=== PATIENT | male | born 1960 | race Caucasian/White ===

== ENCOUNTER 2017-05-21 10:21 | Outpatient (RCR) | payer MEDICARE, MEDICAID, SELFPAY ==
[2017-05-21 11:43] VITALS: BP 147/85; PULSE 72; RESP 18; TEMP 36.6; BMI 20.5
--- NOTE | 2017-05-21 12:46 | HP.PCM_ITS ---
(1) Ulcer of foot Status: Chronic Current Visit: Yes Qualifiers: Laterality: right Non-pressure ulcer stage: with fat layer exposed Qualified Code(s): L97.512 - Non-pressure chronic ulcer of other part of right foot with fat layer exposed Code(s): L97.509 - Non-pressure chronic ulcer of other part of unspecified foot with unspecified severity (2) Supplemental oxygen dependent Status: Chronic Current Visit: No Code(s): Z99.81 - Dependence on supplemental oxygen (3) CHF (congestive heart failure) Status: Chronic Current Visit: No Code(s): I50.9 - Heart failure, unspecified (4) Coronary artery arteriosclerosis Status: Chronic Current Visit: No Code(s): I25.10 - Atherosclerotic heart disease of [place] coronary artery without angina pectoris (5) Parathyroid disease Status: Chronic Current Visit: Yes Code(s): E21.5 - Disorder of parathyroid gland, unspecified (6) COPD (chronic obstructive pulmonary disease) Status: Chronic Current Visit: No Code(s): J44.9 - Chronic obstructive pulmonary disease, unspecified (7) ESRD (end stage renal disease) Status: Chronic Current Visit: No Code(s): N18.6 - End stage renal disease (8) HTN (hypertension) Status: Chronic Current Visit: No Qualifiers: Hypertension type: essential hypertension Qualified Code(s): I10 - Essential (primary) hypertension Code(s): I10 - Essential (primary) hypertension (9) Afib Status: Chronic Current Visit: No Qualifiers: Code(s): I48.91 - Unspecified atrial fibrillation Comment: paroxysmal on Eliquis (10) Pulmonary HTN Status: Chronic Current Visit: No Code(s): I27.2 - Other secondary pulmonary hypertension (11) Anemia with chronic illness Status: Chronic Current Visit: No Code(s): D63.8 - Anemia in other chronic diseases classified elsewhere (12) Hypoxia Status: Acute Current Visit: No Code(s): R09.02 - Hypoxemia (13) S/p nephrectomy Status: Chronic Current Visit: No Code(s): Z90.5 - Acquired absence of kidney (14) Cardiomyopathy Status: Chronic Current Visit: No Qualifiers: Code(s): I42.9 - Cardiomyopathy, unspecified (15) Dependent on hemodialysis Status: Chronic Current Visit: No Code(s): Z99.2 - Dependence on renal dialysis (16) History of nephrectomy Status: Chronic Current Visit: No Code(s): Z98.890 - Other specified postprocedural states; Z90.5 - Acquired absence of kidney (17) History of kidney cancer Status: Chronic Current Visit: No Code(s): Z85.528 - Personal history of other malignant neoplasm of kidney History of Present Illness Date of Service: 05/21/17 Chief Complaint: Chronic, nonhealing ulcerations of the right foot with lower extremity swelling and edema History of Wound: This is a 57-year-old male who presents with a four-month history of ulcerations on his right foot. Patient is uncertain as to the etiology of his wounds, but states she has had associated cellulitis, for which she has been previously treated. The location and appearance of his ulcerations are suggestive of pressure phenomenon, likely due to swelling occurring while wearing an unyielding shoe. The patient has multiple medical problems, which are recommended above. These include, but are not limited to, history of congestive heart failure, coronary artery disease, hypertension, chronic obstructive pulmonary disease, shortness of breath with supplimental O2 dependence, prior nephrectomy, end-stage renal failure, parathyroid disease, atrial fibrillation, pulmonary hypertension, anemia of chronic disease, etc. Past Medical History Past Medical History: Chronic Problems ESRD (end stage renal disease) (Chronic) HTN (hypertension) (Chronic) Afib (Chronic) paroxysmal on Eliquis PAF (paroxysmal atrial fibrillation) (Chronic) Pulmonary HTN (Chronic) Anemia with chronic illness (Chronic) Non-compliance (Chronic) non-compliant with meds and with dialysis Non-compliance with renal dialysis (Chronic) Hyperglycemia (Chronic) Bilateral pleural effusion (Chronic) S/p nephrectomy (Chronic) High-grade atrioventricular block (Chronic) Cardiomyopathy (Chronic) Dependent on hemodialysis (Chronic) Ulcer of foot (Chronic) Supplemental oxygen dependent (Chronic) CHF (congestive heart failure) (Chronic) Coronary artery arteriosclerosis (Chronic) Parathyroid disease (Chronic) COPD (chronic obstructive pulmonary disease) (Chronic) History of nephrectomy (Chronic) History of kidney cancer (Chronic) Past Medical History: Patient's multiple medical problems are as documented above. Additionally, the patient has a history of kidney cancer for which he underwent left nephrectomy approximately 1 year ago at [facility] in [place], [place]. Patient's history is negative for myocardial infarction, diabetes mellitus, hyperlipidemia, thyroid disease, and cerebrovascular accident. The patient indicates that he has a 30% ejection fraction. Surgical History: - - AVF placement PAIGE, left nephrectomy for cancer, cardiac defibrillator placement in 2015. Right inguinal hernia repair in the remote past. Allergies/Adverse Reactions: Allergies No Known Allergies Allergy (Verified 05/04/17 15:58) Home Medications: Ambulatory Orders Medication Instructions Recorded Acetaminophen [Tylenol] 1,000 mg PO Q4H PRN PRN 05/17/15 Calcium Acetate [Phoslo Gel Cap] 1 capsule PO TIDCM 05/17/15 Lisinopril [Zestril] 20 mg PO DAILY 05/17/15 Cinacalcet HCl [Sensipar] 30 mg PO DAILY 09/08/15 Metoprolol Succinate [Toprol Xl] 100 mg PO DAILY #1 tab.er.24h 06/19/16 Folic Acid/Vit Bcomp,C [Renal-Miguel Angel 0.8 mg PO DAILY 02/05/17 Tablet] Loperamide HCl [Anti-Diarrheal] 2 mg PO Q6H PRN PRN 02/05/17 Omeprazole 20 mg PO BID 02/05/17 Hydrocodone Bitart/Apap 5-325 1 - 2 tablet PO Q4H PRN PRN #12 03/03/17 [[place] 5/325] tablet Ondansetron [Zofran Odt] 4 mg PO Q8H PRN PRN #10 tablet 03/03/17 Albuterol IH (ProAir) [Proair Hfa] 1 puff INHALATION Q4H PRN PRN #1 04/20/17 inhaler Hydroxyzine HCl 50 mg PO BID 04/21/17 - Family History Maternal No pertinent history, - - Patient's mother at age of 73 with a history of end-stage renal failure. Paternal Renal Disease, - - The patient's mother at age of 69 with a history of kidney cancer. Social History: Denies use of alcohol and tobacco products. He is disabled and unemployed. He is . Lives: Spouse/ Significant Other Smoking Status: Never smoker Tobacco Use: Non-smoker Alcohol: None Drugs: None Review of Systems Constitutional: Denies: Chills, Fever, Weight Change Eyes: Denies: Pain, Vision Change HEENT: Denies: Difficulty Hearing, Difficulty Swallowing, Sinus Congestion Cardiovascular: Denies: Chest Pain, Palpitations Respiratory: Denies: Cough, Shortness of Breath Gastrointestinal: Denies: Diarrhea, Nausea, Vomiting Genitourinary: Denies: Dysuria, Hematuria Endocrine: Denies: Heat/ Cold Intolerance, Polydipsia, Polyuria Hematologic/ Lymphatic: Denies: Easy Bruising, Easy Bleeding - Physical Exam Vital Signs Temp Pulse Resp BP 98 F 72 18 147/85 H 05/21/17 11:43 05/21/17 11:43 05/21/17 11:43 05/21/17 11:43 General: Alert, Oriented x3, Cooperative, No apparent distress, Well developed, - - The patient appears chronically ill. HEENT: Atraumatic, PERRLA, EOMI, Normocephalic Oral: Moist Mucosa Neck: No JVD, Negative Carotid Bruits, Negative Hepatojugular Reflux, No Nodes, No Nuchal Rigidity, Trachea Midline Lungs: Clear to auscultation, Normal air movement, No rhonchi, No wheeze, No rales Cardiovascular: Normal S1, Normal S2, No murmurs Abdomen: Soft, Non Tender, Non-Distended Extremities: No clubbing, No cyanosis, No Calf Tenderness, - - Mild bilateral lower extremity edema is noted, more severe in the right lower extremity. There are multiple wounds on the right foot, documented elsewhere. The fissure is noted on the right lateral heel. Very superficial ulcerations noted on the right medial foot. A cluster of ulcerations is noted on the dorsum of the right foot, with one particular circular ulceration which is covered by a dry eschar. Circumference measurements are documented elsewhere. Ulcer dimensions are documented elsewhere. Multiple superficial excoriations are noted on the left forearm. The patient's hemodialysis access site is observed on the left upper arm. An transit defibrillator is noted in the right clavicular area Wound Measurements and Assessment WC - Nurse 1 - General Ulcer Measurement Start: 05/21/17 11:38 Freq: Status: Active Protocol: Activity Type Activity Date Activity User E-Sign Co-Sign Detail Recorded Client Recorded Date Recorded By Document 05/21/17 11:43 [facility] [id number] 05/21/17 11:59 BM 05/21/17 11:43 Wound Center Nurse 1 [Ulcer Assessment Protocol: WC.WD.LOC] #4- LFA CLUSTER -Combined with other wound No -Current Size (cm) - Length 10 -Current Size (cm) - Width 10.5 -Current Size (cm) - Depth 0.1 -Total Square Cm 105.0 -Date of Last Picture (Recall this 05/21/17 field) -Photo Taken Yes -Epithelialization None Present -Tunneling No -Undermining/Tunneling No -Exudate Amt None Present (0 %) -Wound Margin Distinct, Outline Attached -Granulation Amt None Present (0 %) -Slough/Fibrin Yes -Necrosis Amt Large (67-100%) -Necrotic Tissue Type Adherent Slough -Structure Exposed N/A -Texture (Yasmeen-wound Skin Appearance) Scarring -Moisture (Yasmeen-wound Skin Appearance Dry/Scaly ) -Color (Yasmeen-wound Skin Appearance) Erythema -Temperature (Yasmeen-wound Skin No Abnormality Appearance) (Pt Warm) -Tenderness on Palpation (Yasmeen-wound No Skin Appearance) -Ulcer Cleansing Rinsed/ Irrigated with Saline -Foul Odor after Cleansing No -Anesthetic Used 4% Lidocaine Solution #3- RT LATERAL FOOT -Combined with other wound No -Current Size (cm) - Length 2.6 -Current Size (cm) - Width 1.3 -Current Size (cm) - Depth 0.1 -Total Square Cm 3.38 -Date of Last Picture (Recall this 05/21/17 field) -Photo Taken Yes -Epithelialization None Present -Tunneling No -Undermining/Tunneling No -Exudate Amt None Present (0 %) -Wound Margin Distinct, Outline Attached -Granulation Amt None Present (0 %) -Slough/Fibrin Yes -Necrosis Amt Large (67-100%) -Necrotic Tissue Type Adherent Slough -Structure Exposed N/A -Texture (Yasmeen-wound Skin Appearance) Scarring -Moisture (Yasmeen-wound Skin Appearance Dry/Scaly ) -Color (Yasmeen-wound Skin Appearance) Erythema -Temperature (Yasmeen-wound Skin No Abnormality Appearance) (Pt Warm) -Tenderness on Palpation (Yasmeen-wound No Skin Appearance) -Ulcer Cleansing Rinsed/ Irrigated with Saline -Foul Odor after Cleansing No -Anesthetic Used 4% Lidocaine Solution #2- RT MEDIAL FOOT -Combined with other wound No -Current Size (cm) - Length 2.0 -Current Size (cm) - Width 1.4 -Current Size (cm) - Depth 0.1 -Total Square Cm 2.80 -Date of Last Picture (Recall this 05/21/17 field) -Photo Taken Yes -Epithelialization None Present -Tunneling No -Undermining/Tunneling No -Exudate Amt None Present (0 %) -Wound Margin Distinct, Outline Attached -Granulation Amt None Present (0 %) -Slough/Fibrin Yes -Necrosis Amt Large (67-100%) -Necrotic Tissue Type Adherent Slough -Structure Exposed N/A -Texture (Yasmeen-wound Skin Appearance) Scarring -Moisture (Yasmeen-wound Skin Appearance Dry/Scaly ) -Color (Yasmeen-wound Skin Appearance) Erythema -Temperature (Yasmeen-wound Skin No Abnormality Appearance) (Pt Warm) -Tenderness on Palpation (Yasmeen-wound No Skin Appearance) -Ulcer Cleansing Rinsed/ Irrigated with Saline -Foul Odor after Cleansing No -Anesthetic Used 4% Lidocaine Solution #1- RT ANTERIOR FOOT CLUSTER -Combined with other wound No -Current Size (cm) - Length 3.2 -Current Size (cm) - Width 3.3 -Current Size (cm) - Depth 0.1 -Total Square Cm 10.56 -Date of Last Picture (Recall this 05/21/17 field) -Photo Taken Yes -Epithelialization None Present -Tunneling No -Undermining/Tunneling No -Exudate Amt None Present (0 %) -Wound Margin Distinct, Outline Attached -Granulation Amt None Present (0 %) -Slough/Fibrin Yes -Necrosis Amt Large (67-100%) -Necrotic Tissue Type Adherent Slough -Structure Exposed N/A -Texture (Yasmeen-wound Skin Appearance) Scarring -Moisture (Yasmeen-wound Skin Appearance Dry/Scaly ) -Color (Yasmeen-wound Skin Appearance) Erythema -Temperature (Yasmeen-wound Skin No Abnormality Appearance) (Pt Warm) -Tenderness on Palpation (Yasmeen-wound No Skin Appearance) -Ulcer Cleansing Rinsed/ Irrigated with Saline -Foul Odor after Cleansing No -Anesthetic Used 4% Lidocaine Solution [Edema Assessment] -Lower Limb Edema Present Yes -Right Calf (cm) 32.4 -Right Ankle (cm) 26.0 -Left Calf (cm) 30.0 -Left Ankle (cm) 22.5 Musculoskeletal: Muscle Wasting - Diffuse Neurological: Cranial nerves II-XII grossly intact, Neuro grossly intact Psych/Mental Status: Normal Affect, Appropriate, Alert and oriented to time, place, person, mood and affect Debridement Note Laterality: Right - Foot Type of Debridement: Selective debridement Anesthesia Used: 4% Lidocaine Solution Depth: Down to and including healthy tissue Percentage of wound debrided: 100 Instrument Used: 5mm curette, #11 blade Severity: Limited To Skin Breakdown Amount of bleeding with debridement: Mild Bleeding Controlled with: Compression and gauze Patient tolerated procedure well Assessment/Plan Active Problems Ulcer of foot (Chronic) Parathyroid disease (Chronic) Assessment: This is a 57-year-old male with multiple medical problems, which have been documented herein. He presents with wounds on his right foot, highly suspicious for pressure phenomenon likely due to swelling in the right foot while wearing unyielding footwear. Patient has undergone a battery of laboratory tests results as follows: White blood count 16.5, hemoglobin 10.5, hematocrit 32.7, platelets 230,000, sodium 134, potassium 7.0, BUN 86, creatinine 8.8, glucose 105, calcium 8.3, magnesium 2.8, AST 11, ALT 30, alkaline phosphatase 92, total protein 5.9, albumin 2.1. Plan: Patient has been encouraged to optimize his nutritional intake. He is to collaborate with his mechanical engineering technologist in this regard to determine how best to achieve this objective. It is noted that he is relatively immobile and inactive , often spending long hours each day and idle sitting position. Furthermore, he sleeps in a recliner. He has been advised to elevate his lower extremities as much as possible. Elevation is to be to heart level or higher. He is to avoid idle sitting and standing. Activity has been encouraged. Ultimately, compression to the lower extremities may be considered. First, however, we are to obtain a noninvasive lower extremity arterial study, to determine the status of the arterial system in the lower extremities. We are to implement the use of collagenase Santyl topically on the largest of his ulcerations on the dorsum of the right foot, after having been scored with selective debridement today using a #11 scalpel. Collagen hydrogel will be used topically on the other ulcerations of the right foot. The patient has multiple excoriations on the left upper extremity, the result of scratching and picking. This practice has been discouraged. We are to observe these excoriation serially, as at this time they do not appear to warrant any specific intervention. It is acknowledged that the patient may have difficulty in elevating his legs, as he states I cannot lie flat because of my heart. Patient is to follow-up in 1 week for reassessment. Influenza vaccine was not administered today. The patient is not a smoker. He stands 5 feet 8 inches in height, and weighs 135 pounds. His BMI is 20.5, which is normal.
== END 2017-05-26 23:59 ==
LOC: WC 10:21
PROVIDERS: Family Provider Family Medicine; PCP Family Medicine; Visit Provider Surgery
DX: L97.512 Non-pressure chronic ulcer of other part of right foot with fat layer exposed (principal); Z99.81 Dependence on supplemental oxygen; I13.2 Hypertensive heart and chronic kidney disease with heart failure and with stage 5 chronic kidney disease, or end stage renal disease; N18.6 End stage renal disease; I50.9 Heart failure, unspecified; I25.10 Atherosclerotic heart disease of native coronary artery without angina pectoris; E21.5 Disorder of parathyroid gland, unspecified; J44.9 Chronic obstructive pulmonary disease, unspecified; I48.0 Paroxysmal atrial fibrillation; Z79.01 Long term (current) use of anticoagulants; Z85.528 Personal history of other malignant neoplasm of kidney; Z98.890 Other specified postprocedural states; M79.89 Other specified soft tissue disorders; R60.0 Localized edema; D63.8 Anemia in other chronic diseases classified elsewhere; Z91.15 Patient's noncompliance with renal dialysis; Z91.14 Patient's other noncompliance with medication regimen; Z95.810 Presence of automatic (implantable) cardiac defibrillator; Z79.899 Other long term (current) drug therapy
CPT/HCPCS: 97597; 99205; G0463

== ENCOUNTER 2017-05-22 15:13 | Inpatient (IN) | payer MEDICARE, MEDICAID, SELFPAY ==
[2017-05-22] VITALS (12 sets, daily range): BP systolic 101–144; BP diastolic 72–119; PULSE 70–135; RESP 16–24; TEMP 36.4–36.8; O2SAT 91–98; BMI 19.1; BMI 20.8
--- NOTE | 2017-05-22 15:34 | RAD_ITS ---
STUDY: X-RAY CHEST REASON FOR EXAM: Male, 57 years old. Chest pain TECHNIQUE: Single AP portable view of the chest. COMPARISON: April 21, 2017. FINDINGS: Pacemaker device on the right is stable. Bilateral mid and lower lung opacities and consolidation. Moderate bilateral pleural effusions. There is moderate cardiac enlargement. Normal mediastinum and butch. Normal visualized pulmonary arteries. Normal visualized aortic arch and descending thoracic aorta. Normal visualized thoracic spine. Normal visualized ribs, clavicles, and shoulders. There is no demonstrated abnormality of the visualized soft tissue structures of the upper abdomen. RAD/Chest 1 View (Portable) IMPRESSION: Moderate bilateral pleural effusions with mid and lower lung consolidation. Electronically Signed: Julio Renee MD at 16:49 EST , Service support ,
--- NOTE | 2017-05-22 15:34 | EKG12_ITS ---
Test Reason : CP Blood Pressure : / mmHG Vent. Rate : 126 BPM Atrial Rate : 141 BPM P-R Int : 000 ms QRS Dur : 090 ms QT Int : 348 ms P-R-T Axes : 000 033 161 degrees QTc Int : [address] & T wave abnormality, consider lateral ischemia Abnormal ECG Confirmed by OLIVER CAMPOS, JAMIR ([id number]), editor at large KULDIP MASON ([id number]) on 05/28/2017 3:39:31 PM Referred By: Confirmed By:JAMIR BOYD MD
--- NOTE | 2017-05-22 15:45 | NURSING ---
Addendum entered by Sheree Mccabe 05/22/17 18:04: CORRECTION: DIALYSIS NEEDLES REMOVED FROM LEFT ARM, NOT RIGHT ARM. Original Note: Addendum entered by Sheree Mccabe 05/22/17 18:03: GOOD PULSES FELT ABOVE AND BELOW SITES WHILE PRESSURE BEING HELD. Original Note: DIALYSIS NEEDLES REMOVED FROM RIGHT ARM--PROXIMAL, THEN DISTAL PER POLICY. PRESSURE HELD X 15 MIN. NO FURTHER BLEEDING NOTED. SITES COVERED W/STERILE GAUZE AND SECURED W/TAPE.
[2017-05-22 16:25] LABS: Absolute Lymphocyte Count 0.79 X10^3/ul (0.83-4.51); Absolute Neutrophil Count 6.2 X10^3/uL (2.0-7.7); Basophil# 0.11 X10^3/uL; Basophil% 1.3 % (0-1); Eosinophil# 0.65 X10^3/uL; Eosinophils% 7.8 % (0-5); Hematocrit 34.5 % (40-54); Hemoglobin 10.6 g/dl (13.0-16.5); Lymphocyte # 0.79 X10^3/ul (4.0); Lymphocyte % 9.5 % (19-41); Mean Corp Hgb Conc 30.7 g/gl (32-36); Mean Corpuscular Hgb 27.9 pg (27.0-32.0); Mean Corpuscular Volume 90.8 fL (80-94); Mean Platelet Vol. 10.4 fl (6.2-12.0); Monocyte# 0.61 X10^3/uL; Monocyte% 7.3 % (0-10); Neutrophil # 6.15 X10^3/uL (2.7-7.7); Neutrophil % 73.7 % (47-70); Platelet Count 122 K/mm3 (150-450); RBC Distribution Width CV 17.8 % (11.6-14.6); RBC Distribution Width SD 58.8 fl (35.1-43.9); White Blood Count 8.3 K/mm3 (4.4-11.0)
[2017-05-22 16:30] LABS: POSITIVE COUNT NO; POSITIVE DIFFERENTIAL NO; POSITIVE MORPHOLOGY NO
[2017-05-22] MEDS: Metoprolol Tartrate 5 MG/5 ML Vial IV ×3 (16:36→16:44)
[2017-05-22 16:49] LABS: ALB/GLOB Ratio 0.7 RATIO (0.9-2.4); AST(SGOT) 39 U/L (15-37); Alanine Aminotransfer ALT/SGPT 47 U/L (12-78); Albumin, Serum 3.2 g/dL (3.4-5.0); Alkaline Phosphatase 201 U/L (45-117); Anion Gap 13 (5-15); BUN 31 mg/dL (7-18); BUN/Creat Ratio 5.7 RATIO (10-20); Calcium,Total 8.2 mg/dL (8.5-10.1); Chloride 98 mmol/L (98-107); Creatinine, Serum 5.43 mg/dL (0.70-1.30); EST Glomerular Filtration Rate 12 mL/min (>60); Est Glom Filt Rate - Afr Amer 14 mL/min (>60); Estimated Creatinine Clearance 11.97 ml/min; Globulin 4.4 g/dL (2.2-4.2); Glucose 71 mg/dL (70-110); Lipase 319 U/L (73-393); Potassium 3.9 mmol/L (3.5-5.1); Protein, Total 7.6 g/dL (6.4-8.2); Sodium Level 137 mmol/L (136-145)
[2017-05-22] MEDS: oxyCODONE 5 MG Tablet PO (16:50)
[2017-05-22] MEDS: Acetaminophen 325 MG Tablet PO (16:51)
[2017-05-22 16:56] LABS: International Normalized Ratio 1.2; Prothrombin Time (Protime)PT. 14.4 SECONDS (11.7-14.9)
[2017-05-22 16:57] LABS: Partial Thromboplast Time 33.4 Seconds (24.1-36.2)
[2017-05-22] MEDS: dilTIAZem 25 MG/5 ML Vial 20 MG IV BOLUS (17:31)
--- NOTE | 2017-05-22 17:44 | ED.RN ---
PER DR RONALD SCHMIDT FOR PT TO EAT. PT GIVEN HAM SALAD AND ROAST BEEF SANDWICH PER PT CHOICE
[2017-05-22] MEDS: Enoxaparin 100 MG/ML Syringe 60 MG SC (19:08)
[2017-05-22] MEDS: Ipratropium/Albuterol Sulfate 3 ML AMPUL.NEB INHALATION (19:13)
--- NOTE | 2017-05-22 20:07 | ED.RN ---
ELIN FONSECA W/ CORI EDMONDSON
[2017-05-22 20:18] LABS: Lactic Acid 2.2 mmol/L (0.4-2.0)
--- NOTE | 2017-05-22 20:19 | ED.RN ---
lab called with critical lab results. lactic acid 2.2. Dr. Allan made aware
--- NOTE | 2017-05-22 20:31 | ED.RN ---
RM 122
--- NOTE | 2017-05-22 20:42 | HP.PCM_ITS ---
Problem List (1) Chest pain Status: Acute Qualifiers: Chest pain type: precordial pain Qualified Code(s): R07.2 - Precordial pain History of Present Illness Date of Admission: 05/22/17 Chief Complaint: Left chest pain The patient is a 57 year old M, h/o parorysmal a-fib, CKD on HD MWF, COPD, chronic respiratory failure on supplemental o2 at 3 L/min, presents with c/o sudden worsening of chest pain that began while he was doing hemodialysis today. Described chest pain as localizing left anterior chest, continuous, severe 10 out of 10, nonradiating, transiently resolved following the administration of Nitropaste. Patient equally reports 2 days of cough productive of sputum of unknown characteristics. Reports associated vomiting following coughing. No fever, chills, sick contacts. ED eval remarkable for blood pressure 117/94, heart rate 132/min, respiration 22 /min. Hemoglobin 10.6, platelets 122, BUN 31, creatinine 5.43, troponin 0 0.14 , albumin 3.2. Chest x-ray remarkable for bilateral mid and lower lung opacities and consolidation, moderate bilateral pleural effusion, right chest pacemaker. Given IV Cardizem, IV cefepime, IV Zithromax and vancomycin, therapeutic dose Lovenox. Past Medical History Past Medical History (Chronic Problems): Chronic Problems ESRD (end stage renal disease) (Chronic) HTN (hypertension) (Chronic) Afib (Chronic) paroxysmal on Eliquis PAF (paroxysmal atrial fibrillation) (Chronic) Pulmonary HTN (Chronic) Anemia with chronic illness (Chronic) Non-compliance (Chronic) non-compliant with meds and with dialysis Non-compliance with renal dialysis (Chronic) Hyperglycemia (Chronic) Bilateral pleural effusion (Chronic) S/p nephrectomy (Chronic) High-grade atrioventricular block (Chronic) Cardiomyopathy (Chronic) Dependent on hemodialysis (Chronic) Ulcer of foot (Chronic) Supplemental oxygen dependent (Chronic) CHF (congestive heart failure) (Chronic) Coronary artery arteriosclerosis (Chronic) Parathyroid disease (Chronic) COPD (chronic obstructive pulmonary disease) (Chronic) History of nephrectomy (Chronic) History of kidney cancer (Chronic) Allergies No Known Allergies Allergy (Verified 05/22/17 15:13) Home Medications: Ambulatory Orders Medication Instructions Recorded Acetaminophen [Tylenol] 1,000 mg PO Q4H PRN PRN 05/17/15 Calcium Acetate [Phoslo Gel Cap] 2 capsule PO TIDCM 05/17/15 Lisinopril [Zestril] 20 mg PO DAILY 05/17/15 Cinacalcet HCl [Sensipar] 30 mg PO DAILY 09/08/15 Metoprolol Succinate [Toprol Xl] 100 mg PO DAILY #1 tab.er.24h 06/19/16 Omeprazole 20 mg PO BID 02/05/17 Albuterol Sulfate [Ventolin Hfa] 1 puff INHALATION Q4H PRN PRN 05/22/17 Fluocinonide [Fluocinonide] 1 applicatio TOPICAL BID 05/22/17 Folic Acid/Vit Bcomp,C [Renal-Miguel Angel 0.8 mg PO DAILY 05/22/17 Tablet] Hydroxyzine Pamoate 50 mg PO BID 05/22/17 Oxycodone HCl/Acetaminophen 1 tablet PO Q6H PRN PRN 05/22/17 [Percocet 5/325] Surgical History: - - AVF placement PAIGE, left nephrectomy for cancer, cardiac defibrillator placement in 2015. Right inguinal hernia repair in the remote past. Smoking Status: Former smoker - *Family History Maternal History Items: No pertinent history, - - Patient's mother at age of 73 with a history of end-stage renal failure. Paternal History Items: Renal Disease, - - The patient's mother at age of 69 with a history of kidney cancer. Review of Systems Constitutional: Denies: Chills, Fever, Weight Change HEENT: Reports: Post Nasal Drip. Denies: Difficulty Hearing, Difficulty Swallowing, Dysphasia, Ear Pain, Eye Pain, Hard of Hearing, Head Aches, Hearing Changes, Nasal bleeding, Nasal Congestion, Sore Throat, Visual Changes Cardiovascular: Reports: Chest Pain, Palpitations. Denies: Claudication, Chest Pressure, Chest Tightness, Edema, Heaviness, Light Headedness, Orthopnea, Paroxysmal Noc. Dyspnea, Syncope Respiratory: Reports: Cough, Shortness of Breath, Sputum production, Wheezing. Denies: Hemoptysis, Pleuritic Pain Gastrointestinal: Reports: Vomiting. Denies: Abdominal Pain, Constipation, Dyspepsia, Hematemesis, Hematochezia, Nausea, Melena Genitourinary: Denies: Dysuria Musculoskeletal: Reports: Foot Pain Skin: Reports: Wounds Neurological: Denies: Numbness, Tingling, Focal weakness Psychiatric: Denies: Anxiety, Depression, Homicidal Ideations, Suicidal Ideations Endocrine: Denies: Change in Body Habitus Hematologic/ Lymphatic: Reports: Easy Bruising VTE Information - Inpt Only VTE Present on Admission: No VTE Mechan Device Prophylaxis: SCD's VTE Pharm Prophylaxis ordered?: Yes VTE Suspected: Suspected DVT Patient Problems: Active and Suspected Problems Chest pain (Acute) - Physical Exam General: Oriented x3, Cooperative HEENT: Atraumatic, PERRLA, Normocephalic Oral: Dry Mucosa Neck: Supple, No JVD, Negative Carotid Bruits Lungs: Diminished, Wheezes Cardiovascular: Irregular Rate Abdomen: Bowel Sounds Present, Soft, Non Tender Extremities: Edema - Right legswollen, erythemathous, with shallow ulcer on doersum of right foot Vital Signs Temp Pulse Resp BP Pulse Ox 98.3 F 80 19 H 119/84 H 98 05/22/17 15:14 05/22/17 20:12 05/22/17 20:12 05/22/17 20:12 05/22/17 20:12 Oxygen Flow Rate 3 Oxygen Delivery Method Nasal Cannula Weight: 57.08 kg Body Mass Index (BMI) 19.1 Laboratory Tests Past 24 Hrs 05/22/17 05/22/17 05/22/17 16:00 16:00 16:35 WBC 8.3 RBC 3.80 L Hgb 10.6 L Hct 34.5 L MCV 90.8 MCH 27.9 MCHC 30.7 L RDW 17.8 H RDW Differential 58.8 H Plt Count 122 L MPV 10.4 Immature Gran % (Auto) 0.400 Neut % (Auto) 73.7 H Lymph % (Auto) 9.5 L Swift % (Auto) 7.3 Eos % (Auto) 7.8 H Baso % (Auto) 1.3 H Absolute Neuts (auto) 6.2 Absolute Lymphs (auto) 0.79 L Total Counted Not Reportable PT 14.4 INR 1.2 APTT 33.4 Sodium 137 Potassium 3.9 Chloride 98 Carbon Dioxide 26.0 Anion Gap 13 BUN 31 H Creatinine 5.43 H Estim Creat Clear Calc 11.97 Est GFR (MDRD) Af Amer 14 L Est GFR (MDRD) Non-Af 12 L BUN/Creatinine Ratio 5.7 L Glucose 71 Lactic Acid Calcium 8.2 L Total Bilirubin 0.70 AST 39 H ALT 47 Alkaline Phosphatase 201 H Troponin I 0.14 H Total Protein 7.6 Albumin 3.2 L Globulin 4.4 H Albumin/Globulin Ratio 0.7 L Lipase 319 05/22/17 19:35 WBC RBC Hgb Hct MCV MCH MCHC RDW RDW Differential Plt Count MPV Immature Gran % (Auto) Neut % (Auto) Lymph % (Auto) Swift % (Auto) Eos % (Auto) Baso % (Auto) Absolute Neuts (auto) Absolute Lymphs (auto) Total Counted PT INR APTT Sodium Potassium Chloride Carbon Dioxide Anion Gap BUN Creatinine Estim Creat Clear Calc Est GFR (MDRD) Af Amer Est GFR (MDRD) Non-Af BUN/Creatinine Ratio Glucose Lactic Acid 2.2 H Calcium Total Bilirubin AST ALT Alkaline Phosphatase Troponin I Total Protein Albumin Globulin Albumin/Globulin Ratio Lipase Assessment/Plan Active and Suspected Problems Chest pain (Acute) 1 Acute precordial chest pain, likely due to paroxysmal atrial fibrillation. Continue Nitropaste. Obtain serial cardiac enzymes, EKG, lipid profile, 2D echo. Patient to be admitted to telemetry unit. 2 Atrial fibrillation with rapid ventricular response. IV I Cardizem, IV heparin. Daily PT PTT INR. Of note patient claims his Coumadin was stopped because of easy bruising and bleeding. 3 Healthcare associated pneumonia. Empiric IV cefepime, IV azithromycin, IV vancomycin. Blood culture, sputum culture, Legionella antigen, strep pneumo antigen pending. 4 Right leg cellulitis with right foot ulcer. Continue empiric IV vancomycin and cefepime. Wound swab for culture and sensitivity pending. Consult wound care services. Right leg venous Doppler to evaluate for DVT. 5 End-stage renal disease on hemodialysis Saturday. Consult nephrology for hemodialysis. 6. Chronic respiratory failure. At baseline. Resume supplemental oxygen at 3 L /min. 7. Chronic troponin elevation. Likely due to end-stage renal disease. Follow serial cardiac enzymes and EKG report. 8. Chronic anemia, due to end-stage renal disease. No overt bleed. Monitor. Code Visit Inpatient E&M: 89383 Init Hosp L3
--- NOTE | 2017-05-22 21:11 | ED.RN ---
NO LW OR POA NEEDS VERIFIED
--- NOTE | 2017-05-22 21:42 | VDLE_ITS ---
Reason For Study: LEG SWELLING RIGHT LEFT GSV is normal. CFV is compressible, spontaneous, phasic, CFV is compressible, spontaneous, phasic, competent, and demonstrates normal competent and demonstrates normal augmentation. augmentation. FV is compressible, spontaneous, phasic, competent and demonstrates normal augmentation. POP V is compressible, spontaneous, phasic, competent and demonstrates normal augmentation. T/P Trunk is compressible. PTV is compressible. RT PerV is compressible. Procedure Exam performed in department. A preliminary report was called and/or faxed to [facility]. Interpretation Summary Deep veins of the right lower extremity are patent and compressible segmentally. There is no evidence of right lower extremity deep vein thrombosis. Valvular competence appears intact within the proximal deep venous system on the right . The right greater saphenous vein appears patent and compressible segmentally. Ordering Physician: Lonnie Kumar Referring Physician: Anaya Abarca Performed By: oNry Jones RVT
--- NOTE | 2017-05-22 21:53 | EKG12_ITS ---
Test Reason : CONVERTED TO NSR Blood Pressure : / mmHG Vent. Rate : 077 BPM Atrial Rate : 077 BPM P-R Int : 164 ms QRS Dur : 088 ms QT Int : 430 ms P-R-T Axes : 007 050 149 degrees QTc Int : 486 ms Sinus rhythm T wave abnormality, consider lateral ischemia Confirmed by OLIVER CAMPOS, JAMIR ([id number]), telegraph editor KULDIP MASON ([id number]) on 05/29/2017 4:19:02 PM Referred By: DR OBRIEN Confirmed By:JAMIR BOYD MD
[2017-05-22] MEDS: 0.9% Saline Lock 10 ML Syringe IV (22:09)
--- NOTE | 2017-05-22 23:04 | ED.VISSUMM ---
- ER Visit Summary Date of Service: 05/22/17 Chief Complaint: Chest pain History of Present Illness: The patient is a 57 M arriving by EMS for the evaluation of chest pain. Patient states that he was at dialysis being dialyzed when he has sudden onset of chest pain over the left breast. He points to an area about 1 fingers breath and really describe it as a pain. He states that time he also went into A. fib. He states that he frequently goes into A. fib in fact the last episode was Saturday. He states he used to be on Coumadin and is unsure exactly why they stopped Coumadin but he thinks it has something to do with the fact that he would pick his skin sores and they would bleed. Patient also notes pain in his feet which are chronic for which he takes Percocet he like 1 of those. He also states that he has a chest cold noting cough dyspnea and dyspnea on exertion. Physical Examination: 98.3 heart rate of 126 respirations are 19 pulse ox is 94% room air blood pressure 120/74 Gen: Well-nourished well-developed Head: Normocephalic atraumatic Eyes: Perrl EOMI ENT: TMs clear no rhinorrhea moist mucous membranes Neck: Supple no lymphadenopathy no JVD nontender CVS: Irregularly irregular rhythm no murmurs normal S1-S2 Respiratory: No distress patient has some expiratory wheezing and rhonchi bilaterally chest nontender Abdomen: Soft nontender nondistended normal bowel sounds no masses Back: Nontender Extremity: Nontender no edema Skin: Normal color no rash Neuro: alert orientated ?3 CN II-XII intact normal strength sensation reflexes gait cerebellar Psych: Patient seems rather disgruntled Test Results: White count 8.3. Creatinine 5.43. Lactic acid 2.2 troponin 0 0.14 (patient has chronically elevated troponins) INR 1.2. Chest x-ray shows bilateral effusion and pneumonia. Emergency Department Course and Treatment: Patient received a dose of IV metoprolol with no change in rate. Patient received Cardizem which did slow him down to the 90s but remained atrial fibrillation. Received a dose of Lovenox. I also gave him a breathing treatment of DuoNeb. Because of the symptoms of a chest cold and the infiltrate on chest x-ray he received vancomycin cefepime and azithromycin to cover for healthcare associated organisms. Plan is admission. Impression: 1. Paroxysmal atrial fibrillation with rapid ventricular response 2. Pneumonia 3. End-stage renal disease requiring dialysis This note was generated with [employer] dictation software. It may contain incorrect words, spelling, and punctuation that were not noted in review of the chart prior to signing ED Disposition - Plan for ED Patient: Disposition: Acute Care Hospital [facility] Chief Complaint: Chest Pain
--- NOTE | 2017-05-22 23:08 | ED.DCSUM_ITS ---
- ER Visit Summary Date of Service: 05/22/17 Chief Complaint: Chest pain History of Present Illness: The patient is a 57 M arriving by EMS for the evaluation of chest pain. Patient states that he was at dialysis being dialyzed when he has sudden onset of chest pain over the left breast. He points to an area about 1 fingers breath and really describe it as a pain. He states that time he also went into A. fib. He states that he frequently goes into A. fib in fact the last episode was Saturday. He states he used to be on Coumadin and is unsure exactly why they stopped Coumadin but he thinks it has something to do with the fact that he would pick his skin sores and they would bleed. Patient also notes pain in his feet which are chronic for which he takes Percocet he like 1 of those. He also states that he has a chest cold noting cough dyspnea and dyspnea on exertion. Physical Examination: 98.3 heart rate of 126 respirations are 19 pulse ox is 94 % room air blood pressure 120/74 Gen: Well-nourished well-developed Head: Normocephalic atraumatic Eyes: Perrl EOMI ENT: TMs clear no rhinorrhea moist mucous membranes Neck: Supple no lymphadenopathy no JVD nontender CVS: Irregularly irregular rhythm no murmurs normal S1-S2 Respiratory: No distress patient has some expiratory wheezing and rhonchi bilaterally chest nontender Abdomen: Soft nontender nondistended normal bowel sounds no masses Back: Nontender Extremity: Nontender no edema Skin: Normal color no rash Neuro: alert orientated ?3 CN II-XII intact normal strength sensation reflexes gait cerebellar Psych: Patient seems rather disgruntled Test Results: White count 8.3. Creatinine 5.43. Lactic acid 2.2 troponin 0 0.14 (patient has chronically elevated troponins) INR 1.2. Chest x-ray shows bilateral effusion and pneumonia. Emergency Department Course and Treatment: Patient received a dose of IV metoprolol with no change in rate. Patient received Cardizem which did slow him down to the 90s but remained atrial fibrillation. Received a dose of Lovenox. I also gave him a breathing treatment of DuoNeb. Because of the symptoms of a chest cold and the infiltrate on chest x-ray he received vancomycin cefepime and azithromycin to cover for healthcare associated organisms. Plan is admission. Impression: 1. Paroxysmal atrial fibrillation with rapid ventricular response 2. Pneumonia 3. End-stage renal disease requiring dialysis This note was generated with [employer] dictation software. It may contain incorrect words, spelling, and punctuation that were not noted in review of the chart prior to signing ED Disposition - Plan for ED Patient: Disposition: Acute Care Hospital [facility] Chief Complaint: Chest Pain
[2017-05-22] MEDS: guaiFENesin 1,200 MG Tablet 1200 MG PO (23:26)
[2017-05-22] MEDS: Pantoprazole Sodium 20 MG Tablet PO (23:26)
[2017-05-22 23:44] LABS: Reflex Lactate? Y
[2017-05-22] MEDS: Acetaminophen 500 MG Tablet 1000 MG PO (23:55)
[2017-05-23] VITALS (20 sets, daily range): BP systolic 134–161; BP diastolic 75–91; PULSE 65–80; RESP 12–28; TEMP 36.3–37.1; O2SAT 92–100
[2017-05-23] MEDS: HEPARIN/D5w 25,000 UNITS 25,000 UNITS/250 ML IV.SOLN. 8 UNITS IV (00:42)
[2017-05-23 01:02] LABS: Lactic Acid 2.2 mmol/L (0.4-2.0)
[2017-05-23] MEDS: Ipratropium/Albuterol Sulfate 3 ML AMPUL.NEB INHALATION ×3 (01:56→10:52)
[2017-05-23] MEDS: oxyCODONE 5 MG Tablet PO ×2 (02:31→11:55)
[2017-05-23] MEDS: BENZOCAINE/MENTHOL 1 LOZENGE 2 LOZENGE MUCOUS MEM (02:32)
[2017-05-23] MEDS: 0.9% NaCl Peripheral Flush Adult/Peds IV (02:33)
--- NOTE | 2017-05-23 05:18 | PCM.CONS.R ---
Problem List (1) ESRD (end stage renal disease) Status: Chronic Consultation - Renal PCP/ Referring MD: Requesting physician: [] Primary care physician: Conner Lopez - History of Present Illness History of Present Illness: The patient is a 57 year old M PMH of ESRD on MWF schedule of HD was admitted 03/22 for acute onset of left side chest pain that started during HD session. Chest pain improved with Sub L nitro. Patient was found to have Afib with RVR. Now he is on heparin drip. Also Patient was found to have pneumonia and started on IV antibiotics . Renal team was consulted for HD provision.Patient finished his last outpatient HD treatment ROS: 12 systems review is negative except for exertional SOB , itchiness in his arms. ] - Allergies Allergies: Allergies No Known Allergies Allergy (Verified 05/22/17 15:13) - Current Medications Current Medications: Current Medications Acetaminophen (Tylenol) 1,000 mg PO Q4H PRN PRN PRN Reason: PAIN Last Admin: 05/22/17 23:55 Dose: 1,000 mg Albuterol Sulfate (Ventolin Aerosols) 2.5 mg INHALATION Q4H PRN PRN PRN Reason: SOB &/OR WHEEZING Albuterol/Ipratropium (Duoneb) 3 ml INHALATION Q4H.RT [facility] Last Admin: 05/23/17 01:56 Dose: 3 ml Calcium Acetate (Phoslo Gel Cap) 1,334 mg PO TIDCM [facility] Cinacalcet (Sensipar) 30 mg PO DAILY [facility] Clobetasol Propionate (Temovate Cream (Bkc)) 1 applic TOPICAL BID [facility] Last Admin: 05/22/17 23:27 Dose: Not Given Guaifenesin (Mucinex) 1,200 mg PO BID [facility] Last Admin: 05/22/17 23:26 Dose: 1,200 mg Heparin Sodium (Porcine) () 0 units IV UD PRN PRN Reason: Protocol Hydroxyzine Pamoate (Vistaril) 50 mg PO BID [facility] Last Admin: 05/22/17 23:28 Dose: 50 mg Azithromycin 500 mg/ Dextrose 255 mls @ 250 mls/hr IV Q24 [facility] Diltiazem HCl 125 mg/ Dextrose 125 mls @ 5 mls/hr CONT INF .Q25H [facility] PRN Reason: 5 MG/HR Last Admin: 05/22/17 22:57 Dose: Not Given Heparin Sodium/Dextrose () 25,000 units in 250 mls @ 8 mls/hr IV .[id number] [facility]; As Directed PRN Reason: Protocol Last Admin: 05/23/17 00:42 Dose: 8 mls/hr Cefepime HCl 1 gm/ N/A 10 mls @ 120 mls/hr IV Q24 [facility] Lisinopril (Zestril) 20 mg PO DAILY [facility] Magnesium Hydroxide (Milk Of Magnesia) 30 ml PO DAILY PRN PRN Reason: Constipation Metoprolol Succinate (Toprol Xl (Beta Rosemarie)) 100 mg PO DAILY [facility] Multivit/Ca Carb/B Cmplx/FA/Prenat (Nephrocaps, Renaphro) 1 capsule PO DAILY [facility] Oxycodone HCl (Oxyir) 5 mg PO Q6H PRN PRN PRN Reason: SEVERE PAIN ([id number]) Last Admin: 05/23/17 02:31 Dose: 5 mg Pantoprazole Sodium (Protonix) 20 mg PO BID [facility] Last Admin: 05/22/17 23:26 Dose: 20 mg Sodium Chloride () 5 - 30 ml IV UD PRN PRN Reason: SALINE FLUSH Last Admin: 05/23/17 02:33 Dose: 10 ml Throat Lozenges (Cepacol Sore Throat Lozenge) 2 lozenge MUCOUS MEM Q2H PRN PRN PRN Reason: Dry throat Last Admin: 05/23/17 02:32 Dose: 2 lozenge - Past Medical History Past Medical History (Chronic Problems): Chronic Problems ESRD (end stage renal disease) (Chronic) HTN (hypertension) (Chronic) Afib (Chronic) paroxysmal on Eliquis PAF (paroxysmal atrial fibrillation) (Chronic) Pulmonary HTN (Chronic) Anemia with chronic illness (Chronic) Non-compliance (Chronic) non-compliant with meds and with dialysis Non-compliance with renal dialysis (Chronic) Hyperglycemia (Chronic) Bilateral pleural effusion (Chronic) S/p nephrectomy (Chronic) High-grade atrioventricular block (Chronic) Cardiomyopathy (Chronic) Dependent on hemodialysis (Chronic) Ulcer of foot (Chronic) Supplemental oxygen dependent (Chronic) CHF (congestive heart failure) (Chronic) Coronary artery arteriosclerosis (Chronic) Parathyroid disease (Chronic) COPD (chronic obstructive pulmonary disease) (Chronic) History of nephrectomy (Chronic) History of kidney cancer (Chronic) - Past Surgical History Surgical History: - - AVF placement PAIGE, left nephrectomy for cancer, cardiac defibrillator placement in 2016. Right inguinal hernia repair in the remote past. - Social History Smoking Status: Former smoker - Family History Maternal History Items: No pertinent history, - - Patient's mother at age of 73 with a history of end-stage renal failure. Paternal History Items: Renal Disease, - - The patient's mother at age of 69 with a history of kidney cancer. Patient Problems: Active and Suspected Problems Chest pain (Acute) - Physical Exam General: Alert, Oriented x3 HEENT: Atraumatic Oral: Moist Mucosa Neck: Supple, No JVD Lungs: Clear to auscultation, - - B/L rhonchi and decrease BS over both lung bases Cardiovascular: Regular rate, Irregular Rate, Tachycardic Abdomen: Bowel Sounds Present, Soft, Non Tender Extremities: - - right leg edema . necrotic lessions of both arm and his right foot dorsum Skin: Ulcer/ Wound, Skin Tear, Rash Present, - - pitichael rash over the RLE Musculoskeletal: No Tenderness to Palpation of Joints or Extremities Lymphatic: No Cervical, Supraclavicular, or Inguinal Adenopathy Neurological: Cranial nerves II-XII grossly intact, Neuro grossly intact Psych/Mental Status: Normal Affect Vital Signs Temp Pulse Resp BP Pulse Ox 98.8 F 76 20 H 148/86 H 98 05/23/17 00:55 05/23/17 03:01 05/23/17 01:57 05/23/17 00:55 05/23/17 01:59 Oxygen Flow Rate 4 Oxygen Delivery Method Nasal Cannula Weight: 62.2 kg Body Mass Index (BMI) 20.8 Intake and Output for Last 24 Hours 05/21/17 05/22/17 05/23/17 23:59 23:59 23:59 Intake Total 578.2 / 578.2 Balance 578.2 / 578.2 Laboratory Tests Past 24 Hrs 05/22/17 05/23/17 05/23/17 22:16 00:20 02:44 Lactic Acid 2.2 H Troponin I 0.19 H 0.17 H Assessment/Plan Active and Suspected Problems Chest pain (Acute) 1- ESRD on MWF schedule of HD. Last HD session 05/22. Next HD session 05/24. No need for HD today URR goal is 70% HD is left arm AVF which is working well Dose medications for ESRD patients 2- Anemia: Hgb > 10. Continue MONE if he is receiving as outpatient 3- BMD: continue Phoslo 2 tabs with each meals for hyperphos. continue sensipar for SHPT. 4- Cellulitis of of the RLE: continue Abx . Dose medications as for ESRD patient 5- chest pain. slight elevation of troponin. R/O ACS. might be pleurisy. On Abx for possible pneumonia. 6-Necrotic skin lesions. 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 patient was not able to tolerate Na thiosulfate lately because of vomiting. 7- Afib with RVR. coumadin was stopped before because it worsens calciphylaxis . Okay with heparin for now. Patient might need lovenox if AC is deemed necessary at discharge. I will defer the management and dosing to the cardiology team Thank you for the consult. Please don't hesitate to call with question or concern Kaitlin Lei MD [phone]
--- NOTE | 2017-05-23 05:28 | CON.PCM_ITS ---
Problem List (1) ESRD (end stage renal disease) Status: Chronic Consultation - Renal PCP/ Referring MD: Requesting physician: [] Primary care physician: Conner Lopez - History of Present Illness History of Present Illness: The patient is a 57 year old M PMH of ESRD on MWF schedule of HD was admitted for acute onset of left side chest pain that started during HD session. Chest pain improved with Sub L nitro. Patient was found to have Afib with RVR. Now he is on heparin drip. Also Patient was found to have pneumonia and started on IV antibiotics . Renal team was consulted for HD provision.Patient finished his last outpatient HD treatment ROS: 12 systems review is negative except for exertional SOB , itchiness in his arms. ] - Allergies Allergies: Allergies No Known Allergies Allergy (Verified 05/22/17 15:13) - Current Medications Current Medications: Current Medications Acetaminophen (Tylenol) 1,000 mg PO Q4H PRN PRN PRN Reason: PAIN Last Admin: 05/22/17 23:55 Dose: 1,000 mg Albuterol Sulfate (Ventolin Aerosols) 2.5 mg INHALATION Q4H PRN PRN PRN Reason: SOB &/OR WHEEZING Albuterol/Ipratropium (Duoneb) 3 ml INHALATION Q4H.RT [facility] Last Admin: 05/23/17 01:56 Dose: 3 ml Calcium Acetate (Phoslo Gel Cap) 1,334 mg PO TIDCM [facility] Cinacalcet (Sensipar) 30 mg PO DAILY [facility] Clobetasol Propionate (Temovate Cream (Bkc)) 1 applic TOPICAL BID [facility] Last Admin: 05/22/17 23:27 Dose: Not Given Guaifenesin (Mucinex) 1,200 mg PO BID [facility] Last Admin: 05/22/17 23:26 Dose: 1,200 mg Heparin Sodium (Porcine) () 0 units IV UD PRN PRN Reason: Protocol Hydroxyzine Pamoate (Vistaril) 50 mg PO BID [facility] Last Admin: 05/22/17 23:28 Dose: 50 mg Azithromycin 500 mg/ Dextrose 255 mls @ 250 mls/hr IV Q24 [facility] Diltiazem HCl 125 mg/ Dextrose 125 mls @ 5 mls/hr CONT INF .Q25H [facility] PRN Reason: 5 MG/HR Last Admin: 05/22/17 22:57 Dose: Not Given Heparin Sodium/Dextrose () 25,000 units in 250 mls @ 8 mls/hr IV .[id number] [facility]; As Directed PRN Reason: Protocol Last Admin: 05/23/17 00:42 Dose: 8 mls/hr Cefepime HCl 1 gm/ N/A 10 mls @ 120 mls/hr IV Q24 [facility] Lisinopril (Zestril) 20 mg PO DAILY [facility] Magnesium Hydroxide (Milk Of Magnesia) 30 ml PO DAILY PRN PRN Reason: Constipation Metoprolol Succinate (Toprol Xl (Beta Rosemarie)) 100 mg PO DAILY [facility] Multivit/Ca Carb/B Cmplx/FA/Prenat (Nephrocaps, Renaphro) 1 capsule PO DAILY [facility] Oxycodone HCl (Oxyir) 5 mg PO Q6H PRN PRN PRN Reason: SEVERE PAIN (6-1010) Last Admin: 05/23/17 02:31 Dose: 5 mg Pantoprazole Sodium (Protonix) 20 mg PO BID [facility] Last Admin: 05/22/17 23:26 Dose: 20 mg Sodium Chloride () 5 - 30 ml IV UD PRN PRN Reason: SALINE FLUSH Last Admin: 05/23/17 02:33 Dose: 10 ml Throat Lozenges (Cepacol Sore Throat Lozenge) 2 lozenge MUCOUS MEM Q2H PRN PRN PRN Reason: Dry throat Last Admin: 05/23/17 02:32 Dose: 2 lozenge - Past Medical History Past Medical History (Chronic Problems): Chronic Problems ESRD (end stage renal disease) (Chronic) HTN (hypertension) (Chronic) Afib (Chronic) paroxysmal on Eliquis PAF (paroxysmal atrial fibrillation) (Chronic) Pulmonary HTN (Chronic) Anemia with chronic illness (Chronic) Non-compliance (Chronic) non-compliant with meds and with dialysis Non-compliance with renal dialysis (Chronic) Hyperglycemia (Chronic) Bilateral pleural effusion (Chronic) S/p nephrectomy (Chronic) High-grade atrioventricular block (Chronic) Cardiomyopathy (Chronic) Dependent on hemodialysis (Chronic) Ulcer of foot (Chronic) Supplemental oxygen dependent (Chronic) CHF (congestive heart failure) (Chronic) Coronary artery arteriosclerosis (Chronic) Parathyroid disease (Chronic) COPD (chronic obstructive pulmonary disease) (Chronic) History of nephrectomy (Chronic) History of kidney cancer (Chronic) - Past Surgical History Surgical History: - - AVF placement PAIGE, left nephrectomy for cancer, cardiac defibrillator placement in 2016. Right inguinal hernia repair in the remote past. - Social History Smoking Status: Former smoker - Family History Maternal History Items: No pertinent history, - - Patient's mother at age of 73 with a history of end-stage renal failure. Paternal History Items: Renal Disease, - - The patient's mother at age of 69 with a history of kidney cancer. Patient Problems: Active and Suspected Problems Chest pain (Acute) - Physical Exam General: Alert, Oriented x3 HEENT: Atraumatic Oral: Moist Mucosa Neck: Supple, No JVD Lungs: Clear to auscultation, - - B/L rhonchi and decrease BS over both lung bases Cardiovascular: Regular rate, Irregular Rate, Tachycardic Abdomen: Bowel Sounds Present, Soft, Non Tender Extremities: - - right leg edema . necrotic lessions of both arm and his right foot dorsum Skin: Ulcer/ Wound, Skin Tear, Rash Present, - - pitichael rash over the RLE Musculoskeletal: No Tenderness to Palpation of Joints or Extremities Lymphatic: No Cervical, Supraclavicular, or Inguinal Adenopathy Neurological: Cranial nerves II-XII grossly intact, Neuro grossly intact Psych/Mental Status: Normal Affect Vital Signs Temp Pulse Resp BP Pulse Ox 98.8 F 76 20 H 148/86 H 98 05/23/17 00:55 05/23/17 03:01 05/23/17 01:57 05/23/17 00:55 05/23/17 01:59 Oxygen Flow Rate 4 Oxygen Delivery Method Nasal Cannula Weight: 62.2 kg Body Mass Index (BMI) 20.8 Intake and Output for Last 24 Hours 05/21/17 05/22/17 05/23/17 23:59 23:59 23:59 Intake Total 578.2 / 578.2 Balance 578.2 / 578.2 Laboratory Tests Past 24 Hrs 05/22/17 05/23/17 05/23/17 22:16 00:20 02:44 Lactic Acid 2.2 H Troponin I 0.19 H 0.17 H Assessment/Plan Active and Suspected Problems Chest pain (Acute) 1- ESRD on MWF schedule of HD. Last HD session 05/22. Next HD session 05/24. No need for HD today URR goal is 70% HD is left arm AVF which is working well Dose medications for ESRD patients 2- Anemia: Hgb > 10. Continue MONE if he is receiving as outpatient 3- BMD: continue Phoslo 2 tabs with each meals for hyperphos. continue sensipar for SHPT. 4- Cellulitis of of the RLE: continue Abx . Dose medications as for ESRD patient 5- chest pain. slight elevation of troponin. R/O ACS. might be pleurisy. On Abx for possible pneumonia. 6-Necrotic skin lesions. 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 patient was not able to tolerate Na thiosulfate lately because of vomiting. 7- Afib with RVR. coumadin was stopped before because it worsens calciphylaxis . Okay with heparin for now. Patient might need lovenox if AC is deemed necessary at discharge. I will defer the management and dosing to the cardiology team Thank you for the consult. Please don't hesitate to call with question or concern Kaitlin Lei MD [phone]
[2017-05-23 07:07] LABS: Hematocrit 31.3 % (40-54); Hemoglobin 9.7 g/dl (13.0-16.5); Mean Corpuscular Volume 90.5 fL (80-94); Mean Platelet Vol. 10.6 fl (6.2-12.0); Platelet Count 140 K/mm3 (150-450); RBC Distribution Width CV 17.8 % (11.6-14.6); RBC Distribution Width SD 56.2 fl (35.1-43.9); Red Blood Count 3.46 M/mm3 (4.6-6.2); White Blood Count 8.5 K/mm3 (4.4-11.0)
[2017-05-23 07:16] LABS: Scan Indicated on CBC? Y/N NO
[2017-05-23 07:18] LABS: Anion Gap 14 (5-15); BUN 44 mg/dL (7-18); Calcium,Total 8.6 mg/dL (8.5-10.1); Chloride 96 mmol/L (98-107); EST Glomerular Filtration Rate 10 mL/min (>60); Est Glom Filt Rate - Afr Amer 12 mL/min (>60); Estimated Creatinine Clearance 11.28 ml/min; Glucose 95 mg/dL (70-110); Potassium 4.4 mmol/L (3.5-5.1); Sodium Level 137 mmol/L (136-145)
[2017-05-23 07:19] LABS: Lactic Acid 1.7 mmol/L (0.4-2.0)
[2017-05-23] MEDS: DiphenhydrAMINE 25 MG Capsule PO (07:25)
[2017-05-23] MEDS: Acetaminophen 500 MG Tablet 1000 MG PO (07:25)
--- NOTE | 2017-05-23 08:31 | PHA.PHARE_ITS ---
Subjective/Objective Date: 05/23/17 Time: 08:29 Antibiotic: Vancomycin, - - Cefepime Type of Consult: New start Indications for Therapy: Pneumonia/Cellulitis Labs: Sodium 137 mmol/L (136-145) 05/23/17 06:40 Potassium 4.4 mmol/L (3.5-5.1) 05/23/17 06:40 Chloride 96 mmol/L (98-107) L 05/23/17 06:40 Carbon Dioxide 27.0 mmol/L (21.0-32.0) 05/23/17 06:40 Anion Gap 14 (5-15) 05/23/17 06:40 BUN 44 mg/dL (7-18) H 05/23/17 06:40 Creatinine 6.30 mg/dL (0.70-1.30) H 05/23/17 06:40 Est GFR (MDRD) Af Amer 12 mL/min (>60) L 05/23/17 06:40 Est GFR (MDRD) Non-Af 10 mL/min (>60) L 05/23/17 06:40 BUN/Creatinine Ratio 7.0 RATIO (10-20) L 05/23/17 06:40 Glucose 95 mg/dL (70-110) 05/23/17 06:40 Estimated Creatinine Clearance: MWF Dialysis Pharmacy Plan for Drug Dosing: Recommend [facility] vancomycin renal dosing nomogram. Dose on dialysis days based on nomogram. Pharmacy Service will continue to monitor and adjust dosing as required. Pharmacy to order these labs: Random drug level - Vancomycin Labs to be done on (date): 05/24/17 Labs to be done (time): 06:00
[2017-05-23 09:01] LABS: International Normalized Ratio 1.3; Prothrombin Time (Protime)PT. 15.8 SECONDS (11.7-14.9)
[2017-05-23 09:09] LABS: Partial Thromboplast Time 125.9 Seconds (24.1-36.2)
--- NOTE | 2017-05-23 09:21 | NURSING ---
Rn called to room, pt c/o SOB not getting enough air in, when this nurse entered the room, the patient was sitting up at side of bed. No visible signs of distress. Patient stated to this nurse that he felt better. Vital signs stable. Oxygen turned up from 3.5L NC to 4L NC. will continue to monitor at this time.
--- NOTE | 2017-05-23 09:34 | CASEMGMT ---
RN CM assessment complete. See link for complete assessment. 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 No anticipated new transition needs. RN CM will continue to follow hospital course and provide CM interventions as needed.
--- NOTE | 2017-05-23 10:00 | CASEMGMT ---
[place] received call from Se Mckinney LPN, with [facility] re: patient's involvement with [facility]. Patient is a current client, however, often refuses visits when denied financial assistance from the program. Per Se, patient has limited support at home and in the community. The patient's family relies soley on patient for transportation and financial assistance. The patient has a spouse, 2 adult sons, one adult dtr and a new granddaughter. None of the rest of the family is able to drive or work. Se also reports the director social, Brett, has worked with the patient. Se states that the patient's PCP has recommended hospice, but patient declines. Se reports he will try to see patient for continued education and health coaching support following discharge.
[2017-05-23] MEDS: Calcium Acetate 667 MG Capsule 1334 MG PO ×2 (11:04→14:35)
[2017-05-23] MEDS: Pantoprazole Sodium 20 MG Tablet PO ×2 (11:04→22:06)
[2017-05-23] MEDS: Cinacalcet HCl 30 MG Tablet PO (11:05)
[2017-05-23] MEDS: guaiFENesin 1,200 MG Tablet 1200 MG PO ×2 (11:05→22:05)
[2017-05-23] MEDS: Lisinopril 20 MG Tablet PO (11:07)
[2017-05-23] MEDS: Clobetasol Propionate 0.05% Cream 1 APPLIC TOPICAL (11:07)
[2017-05-23 11:08] LABS: BNP,B-Type NATRIURETIC PEPTIDE > 5000.0 pg/mL (0-100)
[2017-05-23] MEDS: Folic Acid/Vitamin B Comp W-C 1 Capsule 1 CAP PO (11:08)
--- NOTE | 2017-05-23 11:25 | NURSING ---
wound photo: right dorsal lateral foot
--- NOTE | 2017-05-23 11:25 | NURSING ---
wound photo: right dorsal medial foot
--- NOTE | 2017-05-23 11:26 | NURSING ---
wound photo: right lateral foot/heel
[2017-05-23] MEDS: Metoprolol(XL)Succ 100 MG Tablet PO ×2 (11:35→22:06)
--- NOTE | 2017-05-23 12:18 | PCM.PROGNOTE ---
<Nehemiah Correia - Last Filed: 05/23/17 13:15> Patient Problems: Active and Suspected Problems Chest pain (Acute) Subjective: Patient is resting comfortably in bed. He has no chest pain at rest. He does feel chest pain if he gets up and moves. This began yesterday during dialysis. He states that he frequently has chest pain when his atrial fibrillation becomes rapid. He says he can feel it in his chest the left midsternal region when it comes on. He reports he still having dyspnea with exertion and increased dyspnea if he tries to lie flat. He also has had a new cough for the last 4 days that is not productive. He does have swelling in both of his lower extremities. He reports that he is being seen at the wound center by Dr. Hall for right lower extremity cellulitis which is being treated with a steroid cream and dressings. - Physical Exam General: Alert, Oriented x3, Cooperative HEENT: Atraumatic, PERRLA, EOMI, Normocephalic Neck: Supple, No JVD, Negative Carotid Bruits Lungs: Diminished, Rales - Faint fine crackles bilateral bases Cardiovascular: Regular rate, No murmurs Abdomen: Bowel Sounds Present, Soft, Non Tender Extremities: No edema, Capillary Refill Less than 3 Seconds, Edema - Trace to 1+ pitting edema left lower extremity, 1-2+ pitting edema right lower extremity. Findings consistent with tinea pedis bilateral lower extremities with skin openings around the toes and dry cracked skin on the basis of the feet, toes. Wounds examined on the dorsal aspect of the right foot. No heel ulceration. Erythema of the right foot. Some tenderness to palpation of the foot. Skin: No rashes, No breakdown Musculoskeletal: No Tenderness to Palpation of Joints or Extremities Neurological: Cranial nerves II-XII grossly intact Psych/Mental Status: Normal Affect, Appropriate, Alert and oriented to time, place, person, mood and affect Vital Signs Temp Pulse Resp BP Pulse Ox 97.8 F 75 18 144/75 H 93 05/23/17 09:18 05/23/17 11:35 05/23/17 10:52 05/23/17 11:35 05/23/17 10:52 Oxygen Flow Rate 3 Oxygen Delivery Method Nasal Cannula Weight: 62.4 kg Body Mass Index (BMI) 20.8 Intake and Output for Last 24 Hours 05/21/17 05/22/17 05/23/17 23:59 23:59 23:59 Intake Total 939.2 / 939.2 Balance 939.2 / 939.2 Microbiology Past 72 Hours 05/23/17 10:48 Influenza Types A,B Direct FA (HEYDI) - Final Mucosa - Nasopharyngeal 05/23/17 04:50 Gram Stain - Final Wound - Right Foot Laboratory Tests Past 24 Hrs 05/22/17 05/23/17 05/23/17 22:16 00:20 02:44 WBC RBC Hgb Hct MCV MCH MCHC RDW RDW Differential Plt Count MPV PT INR APTT Sodium Potassium Chloride Carbon Dioxide Anion Gap BUN Creatinine Estim Creat Clear Calc Est GFR (MDRD) Af Amer Est GFR (MDRD) Non-Af BUN/Creatinine Ratio Glucose Lactic Acid 2.2 H Calcium Troponin I 0.19 H 0.17 H B-Natriuretic Peptide 05/23/17 05/23/17 05/23/17 06:40 06:40 06:40 WBC 8.5 RBC 3.46 L Hgb 9.7 L Hct 31.3 L MCV 90.5 MCH 28.0 MCHC 31.0 L RDW 17.8 H RDW Differential 56.2 H Plt Count 140 L MPV 10.6 PT INR APTT Sodium 137 Potassium 4.4 Chloride 96 L Carbon Dioxide 27.0 Anion Gap 14 BUN 44 H Creatinine 6.30 H Estim Creat Clear Calc 11.28 Est GFR (MDRD) Af Amer 12 L Est GFR (MDRD) Non-Af 10 L BUN/Creatinine Ratio 7.0 L Glucose 95 Lactic Acid 1.7 Calcium 8.6 Troponin I 0.21 H B-Natriuretic Peptide 05/23/17 05/23/17 05/23/17 06:40 06:42 08:35 WBC RBC Hgb Hct MCV MCH MCHC RDW RDW Differential Plt Count MPV PT Cancelled 15.8 H INR Cancelled 1.3 APTT Cancelled 125.9 H* Sodium Potassium Chloride Carbon Dioxide Anion Gap BUN Creatinine Estim Creat Clear Calc Est GFR (MDRD) Af Amer Est GFR (MDRD) Non-Af BUN/Creatinine Ratio Glucose Lactic Acid Calcium Troponin I B-Natriuretic Peptide > 5000.0 H 05/23/17 11:56 WBC RBC Hgb Hct MCV MCH MCHC RDW RDW Differential Plt Count MPV PT INR APTT Sodium Potassium Chloride Carbon Dioxide Anion Gap BUN Creatinine Estim Creat Clear Calc Est GFR (MDRD) Af Amer Est GFR (MDRD) Non-Af BUN/Creatinine Ratio Glucose Lactic Acid Calcium Troponin I Pending B-Natriuretic Peptide Assessment/Plan Active and Suspected Problems Chest pain (Acute) 1. Atrial fibrillation with RVR-rate now controlled on Cardizem drip. Cardiology is consulted 2. Elevated troponin with chest pain during dialysis yesterday.-trending upwards however he does have chronic troponin elevations. Will wait for cardiology input. Heparin drip discontinued. 3. Questionable pneumonia versus acute diastolic CHF-discontinue vancomycin and azithromycin, continue cefepime empirically for now. No fever or white count. Suspect congestive heart failure as BNP is greater than 5000 and he has peripheral edema, and he did not finish his dialysis session yesterday. Echocardiogram from 2014 reviewed and demonstrates EF of 50%, stage 2 diastolic dysfunction, moderately dilated left ventricle, mild global hypokinesis of the left ventricle, mild pulmonary hypertension with RVSP 43 mmHg, 1+ MVI. He likely needs dialyzed an extra fluid removed. Continue KAROL inhibitor and metoprolol. -Echo pending -Influenza screen negative -Sputum pending -Urine antigens pending -Blood culture pending 4. End-stage renal disease-patient of Dr. Balbuena. They are consulted. 5. Hypertension-somewhat elevated, will trend and adjust medications as needed. 6. Chronic hypoxic respiratory failure-chronically uses 3 L at home, currently on 4. 7. History of COPD-this does not appear to be an acute exacerbation. Continue duo nebs, incentive spirometer. 8. Nonhealing wounds RLE - continue outpatient wound care follow up and dressing changes. They appear to have a significant degree of fungal changes with skin openings which would increase risk for infection, so will begin clotrimazole bid for tinea pedis. DVT prophylaxis: Heparin drip discontinued, follow a PTT and change to subcu twice daily dosing. DC planning: pending hospital course. This patient was seen by Nehemiah Correia PA-C under the supervision of Doctor Bhardwaj. <Dwight Bhardwaj - Last Filed: 05/23/17 14:02> - Physical Exam Vital Signs Temp Pulse Resp BP Pulse Ox 97.4 F L 75 18 153/81 H 99 05/23/17 13:52 05/23/17 13:52 05/23/17 13:52 05/23/17 13:52 05/23/17 13:52 Oxygen Flow Rate 4 Oxygen Delivery Method Nasal Cannula Weight: 137 lb 9.095 oz Body Mass Index (BMI) 20.8 Intake and Output for Last 24 Hours 05/21/17 05/22/17 05/23/17 23:59 23:59 23:59 Intake Total 1189.2 / 1189.2 Balance 1189.2 / 1189.2 Microbiology Past 72 Hours 05/23/17 10:48 Influenza Types A,B Direct FA (HEYDI) - Final Mucosa - Nasopharyngeal 05/23/17 04:50 Gram Stain - Final Wound - Right Foot Laboratory Tests Past 24 Hrs 05/22/17 05/23/17 05/23/17 22:16 00:20 02:44 WBC RBC Hgb Hct MCV MCH MCHC RDW RDW Differential Plt Count MPV PT INR APTT Sodium Potassium Chloride Carbon Dioxide Anion Gap BUN Creatinine Estim Creat Clear Calc Est GFR (MDRD) Af Amer Est GFR (MDRD) Non-Af BUN/Creatinine Ratio Glucose Lactic Acid 2.2 H Calcium Troponin I 0.19 H 0.17 H B-Natriuretic Peptide 05/23/17 05/23/17 05/23/17 06:40 06:40 06:40 WBC 8.5 RBC 3.46 L Hgb 9.7 L Hct 31.3 L MCV 90.5 MCH 28.0 MCHC 31.0 L RDW 17.8 H RDW Differential 56.2 H Plt Count 140 L MPV 10.6 PT INR APTT Sodium 137 Potassium 4.4 Chloride 96 L Carbon Dioxide 27.0 Anion Gap 14 BUN 44 H Creatinine 6.30 H Estim Creat Clear Calc 11.28 Est GFR (MDRD) Af Amer 12 L Est GFR (MDRD) Non-Af 10 L BUN/Creatinine Ratio 7.0 L Glucose 95 Lactic Acid 1.7 Calcium 8.6 Troponin I 0.21 H B-Natriuretic Peptide 05/23/17 05/23/17 05/23/17 06:40 06:42 08:35 WBC RBC Hgb Hct MCV MCH MCHC RDW RDW Differential Plt Count MPV PT Cancelled 15.8 H INR Cancelled 1.3 APTT Cancelled 125.9 H* Sodium Potassium Chloride Carbon Dioxide Anion Gap BUN Creatinine Estim Creat Clear Calc Est GFR (MDRD) Af Amer Est GFR (MDRD) Non-Af BUN/Creatinine Ratio Glucose Lactic Acid Calcium Troponin I B-Natriuretic Peptide > 5000.0 H 05/23/17 11:56 WBC RBC Hgb Hct MCV MCH MCHC RDW RDW Differential Plt Count MPV PT INR APTT Sodium Potassium Chloride Carbon Dioxide Anion Gap BUN Creatinine Estim Creat Clear Calc Est GFR (MDRD) Af Amer Est GFR (MDRD) Non-Af BUN/Creatinine Ratio Glucose Lactic Acid Calcium Troponin I 0.18 H B-Natriuretic Peptide Assessment/Plan Hospitalist note: I am seeing this patient in conjunction with Nehemiah Correia. I independently seen and examined the patient. Progress note above, laboratory data and imaging studies reviewed. I agree with above treatment plan. Patient was admitted for chest pain probably due to angina pectoris, found to have A. fib with RVR and questionable pneumonia. Today, he mentioned that his main presenting complaints was chest pain near to the end of his hemodialysis session yesterday. He had to leave dialysis Center 20 minutes before he completes his dialysis. He denied cough or sputum production. Still complaining of intermittent chest pain. Denies fever chills. Denies worsening shortness of breath. He is afebrile, heart rate stable, blood pressure slightly elevated, pulse ox is 99% on 4 L of oxygen. He is on 3 L at home. - Physical Exam General: Alert, Oriented x3, Cooperative, mildly short of breath. HEENT: Atraumatic, PERRLA, EOMI. Neck: Supple, No JVD, Negative Carotid Bruits, Trachea Midline, Thyroid Normal. Lungs: Markedly decreased breath sounds at the bases, rhonchi, dull percussion noted on both bases. No wheeze, No rales. Cardiovascular: irregular rate, Normal S1, Normal S2, PMI Normal. Abdomen: Bowel Sounds Present, Soft, Non Tender, Non-Distended, No Hepato-splenomegaly. Extremities: No clubbing, No cyanosis. Unilateral leg edema of the right leg with chronic wounds, mild redness of the right foot Skin: No rashes, multiple skin lesions of both legs and arms. Neurological: Neuro grossly intact Assessment and plan: #1 chest pain/angina: With no acute ischemic changes on EKG. EKG reviewed, revealed A. fib with RVR which is now controlled with T-wave inversion in leads V5 and V6 and those are chronic, no acute ST elevation. Troponin is borderline elevated and it is chronically elevated. Cardiology consulted, recommended nuclear stress test. #2 questionable healthcare fluid pneumonia: Chest x-ray reviewed as lots of chronic changes. He is on IV Zithromax, vancomycin and cefepime. At this time, I doubt pneumonia and his chest x-ray findings could be due to diastolic CHF. Blood and sputum cultures are pending. IV Zithromax and vancomycin discontinued, kept on IV cefepime empirically. #3 A. fib with RVR: Was on IV Cardizem drip, rate is down to 70s, IV Cardizem turn it off. He is on IV heparin drip. Patient was on Coumadin that was discontinued recently because of excessive skin bruises. Plan to DC IV heparin at this time. #4 unilateral right leg edema/minimal erythema: I doubt acute cellulitis, this is chronic. Fungal infection is a possibility, started on topical clotrimazole. Venous Doppler of the right leg ordered to rule out DVT. #5 ESRD: On hemodialysis, nephrology consulted. #6 other chronic medical problems: Continue current medications as above. This note was generated with [employer] dictation software. It may contain incorrect words, spelling, and punctuation that were not noted in checking the note before signing. Code Visit Inpatient E&M: 55466 Subs Hosp L2
--- NOTE | 2017-05-23 12:31 | PN_ITS ---
Addendum entered and electronically signed by SHAKIR Hinojosa 05/23/17 13:16: Code Visit Obtained copy of echo from 03/2017, cancel todays echo: EF 30%, severely dilated left ventricle, moderately severe global left ventricular systolic dysfunction, 1+ MVI, moderate pulmonary hypertension, compared to the previous the LV is more enlarged and the EF has declined, moderate concentric left ventricular hypertrophy. Original Note: <Nehemiah Correia - Last Filed: 05/23/17 13:15> Patient Problems: Active and Suspected Problems Chest pain (Acute) Subjective: Patient is resting comfortably in bed. He has no chest pain at rest. He does feel chest pain if he gets up and moves. This began yesterday during dialysis. He states that he frequently has chest pain when his atrial fibrillation becomes rapid. He says he can feel it in his chest the left midsternal region when it comes on. He reports he still having dyspnea with exertion and increased dyspnea if he tries to lie flat. He also has had a new cough for the last 4 days that is not productive. He does have swelling in both of his lower extremities. He reports that he is being seen at the wound center by Dr. Hall for right lower extremity cellulitis which is being treated with a steroid cream and dressings. - Physical Exam General: Alert, Oriented x3, Cooperative HEENT: Atraumatic, PERRLA, EOMI, Normocephalic Neck: Supple, No JVD, Negative Carotid Bruits Lungs: Diminished, Rales - Faint fine crackles bilateral bases Cardiovascular: Regular rate, No murmurs Abdomen: Bowel Sounds Present, Soft, Non Tender Extremities: No edema, Capillary Refill Less than 3 Seconds, Edema - Trace to 1 + pitting edema left lower extremity, 1-2+ pitting edema right lower extremity. Findings consistent with tinea pedis bilateral lower extremities with skin openings around the toes and dry cracked skin on the basis of the feet, toes. Wounds examined on the dorsal aspect of the right foot. No heel ulceration. Erythema of the right foot. Some tenderness to palpation of the foot. Skin: No rashes, No breakdown Musculoskeletal: No Tenderness to Palpation of Joints or Extremities Neurological: Cranial nerves II-XII grossly intact Psych/Mental Status: Normal Affect, Appropriate, Alert and oriented to time, place, person, mood and affect Vital Signs Temp Pulse Resp BP Pulse Ox 97.8 F 75 18 144/75 H 93 05/23/17 09:18 05/23/17 11:35 05/23/17 10:52 05/23/17 11:35 05/23/17 10:52 Oxygen Flow Rate 3 Oxygen Delivery Method Nasal Cannula Weight: 62.4 kg Body Mass Index (BMI) 20.8 Intake and Output for Last 24 Hours 05/21/17 05/22/17 05/23/17 23:59 23:59 23:59 Intake Total 939.2 / 939.2 Balance 939.2 / 939.2 Microbiology Past 72 Hours 05/23/17 10:48 Influenza Types A,B Direct FA (HEYDI) - Final Mucosa - Nasopharyngeal 05/23/17 04:50 Gram Stain - Final Wound - Right Foot Laboratory Tests Past 24 Hrs 05/22/17 05/23/17 05/23/17 22:16 00:20 02:44 WBC RBC Hgb Hct MCV MCH MCHC RDW RDW Differential Plt Count MPV PT INR APTT Sodium Potassium Chloride Carbon Dioxide Anion Gap BUN Creatinine Estim Creat Clear Calc Est GFR (MDRD) Af Amer Est GFR (MDRD) Non-Af BUN/Creatinine Ratio Glucose Lactic Acid 2.2 H Calcium Troponin I 0.19 H 0.17 H B-Natriuretic Peptide 05/23/17 05/23/17 05/23/17 06:40 06:40 06:40 WBC 8.5 RBC 3.46 L Hgb 9.7 L Hct 31.3 L MCV 90.5 MCH 28.0 MCHC 31.0 L RDW 17.8 H RDW Differential 56.2 H Plt Count 140 L MPV 10.6 PT INR APTT Sodium 137 Potassium 4.4 Chloride 96 L Carbon Dioxide 27.0 Anion Gap 14 BUN 44 H Creatinine 6.30 H Estim Creat Clear Calc 11.28 Est GFR (MDRD) Af Amer 12 L Est GFR (MDRD) Non-Af 10 L BUN/Creatinine Ratio 7.0 L Glucose 95 Lactic Acid 1.7 Calcium 8.6 Troponin I 0.21 H B-Natriuretic Peptide 05/23/17 05/23/17 05/23/17 06:40 06:42 08:35 WBC RBC Hgb Hct MCV MCH MCHC RDW RDW Differential Plt Count MPV PT Cancelled 15.8 H INR Cancelled 1.3 APTT Cancelled 125.9 H* Sodium Potassium Chloride Carbon Dioxide Anion Gap BUN Creatinine Estim Creat Clear Calc Est GFR (MDRD) Af Amer Est GFR (MDRD) Non-Af BUN/Creatinine Ratio Glucose Lactic Acid Calcium Troponin I B-Natriuretic Peptide > 5000.0 H 05/23/17 11:56 WBC RBC Hgb Hct MCV MCH MCHC RDW RDW Differential Plt Count MPV PT INR APTT Sodium Potassium Chloride Carbon Dioxide Anion Gap BUN Creatinine Estim Creat Clear Calc Est GFR (MDRD) Af Amer Est GFR (MDRD) Non-Af BUN/Creatinine Ratio Glucose Lactic Acid Calcium Troponin I Pending B-Natriuretic Peptide Assessment/Plan Active and Suspected Problems Chest pain (Acute) 1. Atrial fibrillation with RVR-rate now controlled on Cardizem drip. Cardiology is consulted 2. Elevated troponin with chest pain during dialysis yesterday.-trending upwards however he does have chronic troponin elevations. Will wait for cardiology input. Heparin drip discontinued. 3. Questionable pneumonia versus acute diastolic CHF-discontinue vancomycin and azithromycin, continue cefepime empirically for now. No fever or white count. Suspect congestive heart failure as BNP is greater than 5000 and he has peripheral edema, and he did not finish his dialysis session yesterday. Echocardiogram from 2014 reviewed and demonstrates EF of 50%, stage 2 diastolic dysfunction, moderately dilated left ventricle, mild global hypokinesis of the left ventricle, mild pulmonary hypertension with RVSP 43 mmHg, 1+ MVI. He likely needs dialyzed an extra fluid removed. Continue KAROL inhibitor and metoprolol. -Echo pending -Influenza screen negative -Sputum pending -Urine antigens pending -Blood culture pending 4. End-stage renal disease-patient of Dr. Balbuena. They are consulted. 5. Hypertension-somewhat elevated, will trend and adjust medications as needed. 6. Chronic hypoxic respiratory failure-chronically uses 3 L at home, currently on 4. 7. History of COPD-this does not appear to be an acute exacerbation. Continue duo nebs, incentive spirometer. 8. Nonhealing wounds RLE - continue outpatient wound care follow up and dressing changes. They appear to have a significant degree of fungal changes with skin openings which would increase risk for infection, so will begin clotrimazole bid for tinea pedis. DVT prophylaxis: Heparin drip discontinued, follow a PTT and change to subcu twice daily dosing. DC planning: pending hospital course. This patient was seen by Nehemiah Correia PA-C under the supervision of Doctor Benton. <Dwight Bhardwaj E - Last Filed: 05/23/17 14:02> - Physical Exam Vital Signs Temp Pulse Resp BP Pulse Ox 97.4 F L 75 18 153/81 H 99 05/23/17 13:52 05/23/17 13:52 05/23/17 13:52 05/23/17 13:52 05/23/17 13:52 Oxygen Flow Rate 4 Oxygen Delivery Method Nasal Cannula Weight: 137 lb 9.095 oz Body Mass Index (BMI) 20.8 Intake and Output for Last 24 Hours 05/21/17 05/22/17 05/23/17 23:59 23:59 23:59 Intake Total 1189.2 / 1189.2 Balance 1189.2 / 1189.2 Microbiology Past 72 Hours 05/23/17 10:48 Influenza Types A,B Direct FA (HEYDI) - Final Mucosa - Nasopharyngeal 05/23/17 04:50 Gram Stain - Final Wound - Right Foot Laboratory Tests Past 24 Hrs 05/22/17 05/23/17 05/23/17 22:16 00:20 02:44 WBC RBC Hgb Hct MCV MCH MCHC RDW RDW Differential Plt Count MPV PT INR APTT Sodium Potassium Chloride Carbon Dioxide Anion Gap BUN Creatinine Estim Creat Clear Calc Est GFR (MDRD) Af Amer Est GFR (MDRD) Non-Af BUN/Creatinine Ratio Glucose Lactic Acid 2.2 H Calcium Troponin I 0.19 H 0.17 H B-Natriuretic Peptide 05/23/17 05/23/17 05/23/17 06:40 06:40 06:40 WBC 8.5 RBC 3.46 L Hgb 9.7 L Hct 31.3 L MCV 90.5 MCH 28.0 MCHC 31.0 L RDW 17.8 H RDW Differential 56.2 H Plt Count 140 L MPV 10.6 PT INR APTT Sodium 137 Potassium 4.4 Chloride 96 L Carbon Dioxide 27.0 Anion Gap 14 BUN 44 H Creatinine 6.30 H Estim Creat Clear Calc 11.28 Est GFR (MDRD) Af Amer 12 L Est GFR (MDRD) Non-Af 10 L BUN/Creatinine Ratio 7.0 L Glucose 95 Lactic Acid 1.7 Calcium 8.6 Troponin I 0.21 H B-Natriuretic Peptide 05/23/17 05/23/17 05/23/17 06:40 06:42 08:35 WBC RBC Hgb Hct MCV MCH MCHC RDW RDW Differential Plt Count MPV PT Cancelled 15.8 H INR Cancelled 1.3 APTT Cancelled 125.9 H* Sodium Potassium Chloride Carbon Dioxide Anion Gap BUN Creatinine Estim Creat Clear Calc Est GFR (MDRD) Af Amer Est GFR (MDRD) Non-Af BUN/Creatinine Ratio Glucose Lactic Acid Calcium Troponin I B-Natriuretic Peptide > 5000.0 H 05/23/17 11:56 WBC RBC Hgb Hct MCV MCH MCHC RDW RDW Differential Plt Count MPV PT INR APTT Sodium Potassium Chloride Carbon Dioxide Anion Gap BUN Creatinine Estim Creat Clear Calc Est GFR (MDRD) Af Amer Est GFR (MDRD) Non-Af BUN/Creatinine Ratio Glucose Lactic Acid Calcium Troponin I 0.18 H B-Natriuretic Peptide Assessment/Plan Hospitalist note: I am seeing this patient in conjunction with Nehemiah Correia. I independently seen and examined the patient. Progress note above, laboratory data and imaging studies reviewed. I agree with above treatment plan. Patient was admitted for chest pain probably due to angina pectoris, found to have A. fib with RVR and questionable pneumonia. Today, he mentioned that his main presenting complaints was chest pain near to the end of his hemodialysis session yesterday. He had to leave dialysis Center 20 minutes before he completes his dialysis. He denied cough or sputum production. Still complaining of intermittent chest pain. Denies fever chills. Denies worsening shortness of breath. He is afebrile, heart rate stable, blood pressure slightly elevated, pulse ox is 99% on 4 L of oxygen. He is on 3 L at home. - Physical Exam General: Alert, Oriented x3, Cooperative, mildly short of breath. HEENT: Atraumatic, PERRLA, EOMI. Neck: Supple, No JVD, Negative Carotid Bruits, Trachea Midline, Thyroid Normal. Lungs: Markedly decreased breath sounds at the bases, rhonchi, dull percussion noted on both bases. No wheeze, No rales. Cardiovascular: irregular rate, Normal S1, Normal S2, PMI Normal. Abdomen: Bowel Sounds Present, Soft, Non Tender, Non-Distended, No Hepato- splenomegaly. Extremities: No clubbing, No cyanosis. Unilateral leg edema of the right leg with chronic wounds, mild redness of the right foot Skin: No rashes, multiple skin lesions of both legs and arms. Neurological: Neuro grossly intact Assessment and plan: #1 chest pain/angina: With no acute ischemic changes on EKG. EKG reviewed, revealed A. fib with RVR which is now controlled with T-wave inversion in leads V5 and V6 and those are chronic, no acute ST elevation. Troponin is borderline elevated and it is chronically elevated. Cardiology consulted, recommended nuclear stress test. #2 questionable healthcare fluid pneumonia: Chest x-ray reviewed as lots of chronic changes. He is on IV Zithromax, vancomycin and cefepime. At this time , I doubt pneumonia and his chest x-ray findings could be due to diastolic CHF. Blood and sputum cultures are pending. IV Zithromax and vancomycin discontinued, kept on IV cefepime empirically. #3 A. fib with RVR: Was on IV Cardizem drip, rate is down to 70s, IV Cardizem turn it off. He is on IV heparin drip. Patient was on Coumadin that was discontinued recently because of excessive skin bruises. Plan to DC IV heparin at this time. #4 unilateral right leg edema/minimal erythema: I doubt acute cellulitis, this is chronic. Fungal infection is a possibility, started on topical clotrimazole. Venous Doppler of the right leg ordered to rule out DVT. #5 ESRD: On hemodialysis, nephrology consulted. #6 other chronic medical problems: Continue current medications as above. This note was generated with [employer] dictation software. It may contain incorrect words, spelling, and punctuation that were not noted in checking the note before signing. Code Visit Inpatient E&M: 96276 Subs Hosp L2
[2017-05-23] MEDS: Ondansetron 4 MG/2 ML Vial IV (13:46)
--- NOTE | 2017-05-23 17:11 | PCM.CONS.C ---
Reason for Consult Date of Consultation: 05/23/17 Reason for Consultation: Abnormal cardiac enzymes History of Present Illness: The patient is a 57 year old M with a history of nonischemic cardiomyopathy paroxysmal atrial fibrillation end-stage renal disease status post defibrillator implantation who was undergoing dialysis and developed some chest discomfort. He was brought to the emergency room where he was evaluated he was noted to be mildly fluid overloaded and with the chest discomfort and cardiac troponin enzymes were obtained which were noted to be abnormal and he was admitted for further evaluation and management. He currently denies any chest pain shortness of breath is at baseline he has not had any dizziness no palpitations since admission. In the emergency room as well he was noted to be in paroxysmal atrial fibrillation. He can feel his heart block and regular rhythm now. He has had no defibrillator discharges. [] Past Medical History Allergies/Adverse Reactions: Allergies No Known Allergies Allergy (Verified 05/22/17 15:13) Home Medications: Ambulatory Orders Medication Instructions Recorded Acetaminophen [Tylenol] 1,000 mg PO Q4H PRN PRN 05/17/15 Calcium Acetate [Phoslo Gel Cap] 2 capsule PO TIDCM 05/17/15 Lisinopril [Zestril] 20 mg PO DAILY 05/17/15 Cinacalcet HCl [Sensipar] 30 mg PO DAILY 09/08/15 Metoprolol Succinate [Toprol Xl] 100 mg PO DAILY #1 tab.er.24h 06/19/16 Omeprazole 20 mg PO BID 02/05/17 Albuterol Sulfate [Ventolin Hfa] 1 puff INHALATION Q4H PRN PRN 05/22/17 Fluocinonide [Fluocinonide] 1 applicatio TOPICAL BID 05/22/17 Folic Acid/Vit Bcomp,C [Renal-Miguel Angel 0.8 mg PO DAILY 05/22/17 Tablet] Hydroxyzine Pamoate 50 mg PO BID 05/22/17 Oxycodone HCl/Acetaminophen 1 tablet PO Q6H PRN PRN 05/22/17 [Percocet 5/325] Past Medical History (Chronic Problems): Chronic Problems ESRD (end stage renal disease) (Chronic) HTN (hypertension) (Chronic) Afib (Chronic) paroxysmal on Eliquis PAF (paroxysmal atrial fibrillation) (Chronic) Pulmonary HTN (Chronic) Anemia with chronic illness (Chronic) Non-compliance (Chronic) non-compliant with meds and with dialysis Non-compliance with renal dialysis (Chronic) Hyperglycemia (Chronic) Bilateral pleural effusion (Chronic) S/p nephrectomy (Chronic) High-grade atrioventricular block (Chronic) Cardiomyopathy (Chronic) Dependent on hemodialysis (Chronic) Ulcer of foot (Chronic) Supplemental oxygen dependent (Chronic) CHF (congestive heart failure) (Chronic) Coronary artery arteriosclerosis (Chronic) Parathyroid disease (Chronic) COPD (chronic obstructive pulmonary disease) (Chronic) History of nephrectomy (Chronic) History of kidney cancer (Chronic) Surgical History: - - AVF placement PAIGE, left nephrectomy for cancer, cardiac defibrillator placement in 2015. Right inguinal hernia repair in the remote past. - *Family History Maternal History Items: No pertinent history, - - Patient's mother at age of 73 with a history of end-stage renal failure. Paternal History Items: Renal Disease, - - The patient's mother at age of 69 with a history of kidney cancer. Smoking Status: Former smoker Alcohol: None Drugs: None Review of Systems - Review of Systems General: Denies: Fever, Night Sweats, Fatigue Cardiovascular: Reports: Chest Discomfort, Palpitations. Denies: Shortness of Breath, Orthopnea, PND, Peripheral Edema, Lightheadedness, Dizziness, Near Syncope, Syncope Respiratory: Denies: Cough, Sputum Production, Hemoptysis Gastrointestinal: Denies: Hematemesis, Hematochezia, Melena Genitourinary: Denies: Dysuria, Hematuria Skin: Denies: Rash Subjectve: Pleasant gentleman sitting in chair in no apparent distress. Objective: Vital Signs Temp Pulse Resp BP Pulse Ox 97.4 F L 75 18 153/81 H 99 05/23/17 13:52 05/23/17 16:00 05/23/17 13:52 05/23/17 13:52 05/23/17 13:52 Oxygen Flow Rate 4 Oxygen Delivery Method Nasal Cannula Weight: 137 lb 9.095 oz Body Mass Index (BMI) 20.8 Intake and Output for Last 24 Hours 05/21/17 05/22/17 05/23/17 23:59 23:59 23:59 Intake Total 1189.2 / 1189.2 Balance 1189.2 / 1189.2 General: Awake, Alert, Oriented x 3 HEENT: PERRL, EOMI, Sclera Non Icteric Neck: Supple, Good ROM, No Lymph Node Enlargement Lungs: Clear to auscultation Cardiovascular: Regular Rhythm, Normal S1, Normal S2, No Murmurs, No Rubs, No Gallops Vascular: No Carotid Bruits, Normal Femoral Pulses, Normal Radial Pulses, Normal Dorsalis Pedal Pulse, Normal Posterior Tibial Pulses Abdomen: Bowel Sounds Present, Soft, Non Tender, No HSM, No Organomegaly Extremities: No Cyanosis, No Clubbing, No edema Neurological: No Focal Motor or Sensory Deficit 05/22/17 22:16: Troponin I 0.19 H 05/23/17 00:20: Lactic Acid 2.2 H 05/23/17 02:44: Troponin I 0.17 H 05/23/17 06:40: WBC 8.5, RBC 3.46 L, Hgb 9.7 L, Hct 31.3 L, MCV 90.5, MCH 28.0, MCHC 31.0 L, RDW 17.8 H, RDW Differential 56.2 H, Plt Count 140 L, MPV 10.6 05/23/17 06:40: Sodium 137, Potassium 4.4, Chloride 96 L, Carbon Dioxide 27.0, Anion Gap 14, BUN 44 H, Creatinine 6.30 H, Est GFR (MDRD) Af Amer 12 L, Est GFR (MDRD) Non-Af 10 L, BUN/Creatinine Ratio 7.0 L, Glucose 95, Calcium 8.6, Troponin I 0.21 H 05/23/17 06:40: Lactic Acid 1.7 05/23/17 06:40: B-Natriuretic Peptide > 5000.0 H 05/23/17 06:42: PT Cancelled, INR Cancelled, APTT Cancelled 05/23/17 08:35: PT 15.8 H, INR 1.3, APTT 125.9 H* 05/23/17 11:56: Troponin I 0.18 H Rhythm: EKG: Normal sinus rhythm with T-wave inversion noted in V4 through V6 rate of 77 bpm. Assessment/Plan 1. Abnormal cardiac enzymes. Patient has no previously documented evidence of obstructive coronary disease. I suspect the above is secondary to myocardial necrosis which may be due to demand ischemia. His blood pressure has been high as well as his atrial fibrillation could contribute to the above especially with his markedly dilated left ventricle. At this particular time I would not suggest any invasive therapy other than a pharmacologic myocardial perfusion stress test. Unless this demonstrates a significant area of ischemia he will continue to be managed medically. 2. Nonischemic cardiomyopathy He does have evidence of nonischemic cardiomyopathy his most recent echocardiogram from last month demonstrated an ejection fraction of 30% with a dilated left ventricle. Blood pressure needs to continue to be aggressively monitored and controlled. This will lead to some remodeling. 3. Congestive heart failure acute systolic Above is likely secondary to his nonischemic cardiomyopathy hypertensive heart disease and his paroxysmal atrial fibrillation. He will continue with dialysis for fluid removal. 4. Hypertension His blood pressure had been elevated as an outpatient and he had his lisinopril increased. There is room to increase this some more we will consider increasing his Toprol to 200 mg a day. Probably needs to be on this dose with his nonischemic cardiomyopathy as well. 5. Status post ICD implantation. His ICD was recently checked in the office and is noted to be functioning well he has not had any defibrillator discharges and we will continue to monitor him in the office. 6. Paroxysmal atrial fibrillation He remains on anticoagulation for the above. Does presents with occasional episodes of the above with rapid ventricular response rate. It may be prudent to increase his beta-michael so that his heart rate control is much better. He is being evaluated at [facility] as a possible transplant candidate and his records have been faxed over to [facility] in [place]. Thank you for allowing me to participate in his care.
[2017-05-23 18:51] LABS: International Normalized Ratio 1.3; Prothrombin Time (Protime)PT. 15.7 SECONDS (11.7-14.9)
[2017-05-24] VITALS (18 sets, daily range): BP systolic 108–145; BP diastolic 52–81; PULSE 62–109; RESP 14–24; TEMP 36.4–36.9; O2SAT 91–96
[2017-05-24] MEDS: oxyCODONE 5 MG Tablet PO ×3 (00:20→18:05)
--- NOTE | 2017-05-24 02:03 | NURSING ---
Pt states his body cannot take that stuff in reference to IV dye used in stress test. Reports he does not think he could tolerate the treadmill stress test.
[2017-05-24] MEDS: Ipratropium/Albuterol Sulfate 3 ML AMPUL.NEB INHALATION ×3 (02:15→19:58)
--- NOTE | 2017-05-24 05:55 | EKG12_ITS ---
Test Reason : AM EKG Blood Pressure : / mmHG Vent. Rate : 070 BPM Atrial Rate : 070 BPM P-R Int : 146 ms QRS Dur : 088 ms QT Int : 436 ms P-R-T Axes : -13 048 123 degrees QTc Int : 470 ms Normal sinus rhythm Nonspecific T wave abnormality Prolonged QT Abnormal ECG When compared with ECG of 22-MAY-2017 22:03, MANUAL COMPARISON REQUIRED, DATA IS UNCONFIRMED Confirmed by OLIVER CAMPOS, JAMIR ([id number]), photo editor KULDIP MASON ([id number]) on 05/29/2017 4:08:16 PM Referred By: JOSSELYN Confirmed By:JAMIR BOYD MD
[2017-05-24] MEDS: Lisinopril 20 MG Tablet PO (06:22)
[2017-05-24 06:34] LABS: Partial Thromboplast Time 39.2 Seconds (24.1-36.2)
[2017-05-24 06:39] LABS: Absolute Lymphocyte Count 0.97 X10^3/ul (0.83-4.51); Basophil# 0.11 X10^3/uL; Basophil% 1.4 % (0-1); Eosinophil# 0.28 X10^3/uL; Eosinophils% 3.5 % (0-5); Hematocrit 33.4 % (40-54); Hemoglobin 10.1 g/dl (13.0-16.5); International Normalized Ratio 1.2; Lymphocyte # 0.97 X10^3/ul (4.0); Lymphocyte % 12.1 % (19-41); Mean Corp Hgb Conc 30.2 g/gl (32-36); Mean Corpuscular Hgb 27.4 pg (27.0-32.0); Mean Corpuscular Volume 90.8 fL (80-94); Mean Platelet Vol. 9.7 fl (6.2-12.0); Monocyte# 0.66 X10^3/uL; Monocyte% 8.2 % (0-10); Neutrophil # 5.97 X10^3/uL (2.7-7.7); Neutrophil % 74.6 % (47-70); Platelet Count 146 K/mm3 (150-450); Prothrombin Time (Protime)PT. 15.1 SECONDS (11.7-14.9); RBC Distribution Width CV 17.9 % (11.6-14.6); RBC Distribution Width SD 59.5 fl (35.1-43.9); Red Blood Count 3.68 M/mm3 (4.6-6.2)
[2017-05-24 06:44] LABS: POSITIVE COUNT NO; POSITIVE DIFFERENTIAL NO; POSITIVE MORPHOLOGY NO
[2017-05-24 06:53] LABS: Vancomycin, Random Level 13.5 ug/mL (0.0-15.0)
[2017-05-24 06:59] LABS: Anion Gap 15 (5-15); BUN 56 mg/dL (7-18); BUN/Creat Ratio 7.2 RATIO (10-20); Calcium,Total 8.6 mg/dL (8.5-10.1); Chloride 95 mmol/L (98-107); Creatinine, Serum 7.77 mg/dL (0.70-1.30); EST Glomerular Filtration Rate 8 mL/min (>60); Est Glom Filt Rate - Afr Amer 9 mL/min (>60); Estimated Creatinine Clearance 9.15 ml/min; Glucose 91 mg/dL (70-110); Potassium 5.7 mmol/L (3.5-5.1); Sodium Level 134 mmol/L (136-145)
[2017-05-24] MEDS: Calcium Acetate 667 MG Capsule 1334 MG PO ×2 (08:13→18:23)
--- NOTE | 2017-05-24 08:30 | PCM.PN.CARD ---
Subjectve: Patient seen and evaluated and appears to be stable with no complaints other than refusing to do his stress test. Objective: Vital Signs Temp Pulse Resp BP Pulse Ox 98.3 F 109 H 14 113/70 93 05/24/17 08:17 05/24/17 08:17 05/24/17 08:17 05/24/17 08:17 05/24/17 08:17 Oxygen Flow Rate 4 Oxygen Delivery Method Nasal Cannula Weight: 137 lb 9.095 oz Body Mass Index (BMI) 20.8 Intake and Output for Last 24 Hours 05/22/17 05/23/17 05/24/17 23:59 23:59 23:59 Intake Total 1884.2 / 1884.2 Output Total 0 / 0 Balance 1884.2 / 1884.2 General: Awake, Alert, Oriented x 3 HEENT: PERRL, EOMI, Sclera Non Icteric Neck: Supple, Good ROM, No Lymph Node Enlargement Lungs: Clear to auscultation Cardiovascular: Regular Rhythm, Normal S1, Normal S2, No Murmurs, No Rubs, No Gallops Vascular: No Carotid Bruits, Normal Femoral Pulses, Normal Radial Pulses, Normal Dorsalis Pedal Pulse, Normal Posterior Tibial Pulses Abdomen: Bowel Sounds Present, Soft, Non Tender, No HSM, No Organomegaly Extremities: No Cyanosis, No Clubbing, No edema Neurological: No Focal Motor or Sensory Deficit 05/23/17 06:40: B-Natriuretic Peptide > 5000.0 H 05/23/17 08:35: PT 15.8 H, INR 1.3, APTT 125.9 H* 05/23/17 11:56: Troponin I 0.18 H 05/23/17 18:19: PT 15.7 H, INR 1.3 05/24/17 06:05: WBC 8.0, RBC 3.68 L, Hgb 10.1 L, Hct 33.4 L, MCV 90.8, MCH 27.4, MCHC 30.2 L, RDW 17.9 H, RDW Differential 59.5 H, Plt Count 146 L, MPV 9.7, Immature Gran % (Auto) 0.200, Neut % (Auto) 74.6 H, Lymph % (Auto) 12.1 L, [place] % (Auto) 8.2, Eos % (Auto) 3.5, Baso % (Auto) 1.4 H, Absolute Neuts (auto) 6.0, Total Counted Not Reportable 05/24/17 06:05: Sodium 134 L, Potassium 5.7 H, Chloride 95 L, Carbon Dioxide 24.0, Anion Gap 15, BUN 56 H, Creatinine 7.77 H*, Est GFR (MDRD) Af Amer 9 L, Est GFR (MDRD) Non-Af 8 L, BUN/Creatinine Ratio 7.2 L, Glucose 91, Calcium 8.6 05/24/17 06:05: APTT 39.2 H 05/24/17 06:05: PT 15.1 H, INR 1.2 Rhythm: EKG: Normal sinus rhythm Assessment/Plan 1. Abnormal cardiac enzymes. Patient has no previously documented evidence of obstructive coronary disease. I suspect the above is secondary to myocardial necrosis which may be due to demand ischemia. His blood pressure has been high as well as his atrial fibrillation could contribute to the above especially with his markedly dilated left ventricle. At this particular time I would not suggest any test. 2. Nonischemic cardiomyopathy He does have evidence of nonischemic cardiomyopathy his most recent echocardiogram from last month demonstrated an ejection fraction of 30% with a dilated left ventricle. Blood pressure needs to continue to be aggressively monitored and controlled. This will lead to some remodeling. 3. Congestive heart failure acute systolic Above is likely secondary to his nonischemic cardiomyopathy hypertensive heart disease and his paroxysmal atrial fibrillation. He will continue with dialysis for fluid removal. 4. Hypertension His blood pressure had been elevated as an outpatient and he had his lisinopril increased. There is room to increase this some more we will increase his Toprol to 200 mg a day. Probably needs to be on this dose with his nonischemic cardiomyopathy as well. 5. Status post ICD implantation. His ICD was recently checked in the office and is noted to be functioning well he has not had any defibrillator discharges and we will continue to monitor him in the office. 6. Paroxysmal atrial fibrillation He remains on anticoagulation for the above. Does presents with occasional episodes of the above with rapid ventricular response rate. It may be prudent to increase his beta-michael so that his heart rate control is much better. He is being evaluated at [facility] as a possible transplant candidate and his records have been faxed over to [facility]. Thank you for allowing me to participate in his care.
[2017-05-24] MEDS: Ondansetron 4 MG/2 ML Vial IV ×2 (10:08→18:05)
[2017-05-24] MEDS: Magnesium Hydroxide 30 ML UDC PO (10:08)
--- NOTE | 2017-05-24 10:14 | PN.RENAL_ITS ---
Patient Problems: Active and Suspected Problems Chest pain (Acute) Subjective: Patient seen during hemodialysis session. Patient is tolerating the session well. Blood flow rate 300. Dialysate flow rate 700 Stable vital signs. Slightly tachycardic - Physical Exam General: Alert, Oriented x3 HEENT: Atraumatic Oral: Moist Mucosa Neck: Supple, No JVD Lungs: - - decreased breathing sounds over both lung spaces with bilateral rhonchi Cardiovascular: Regular rate, - - Regular heart rate with rapid rhythm Abdomen: Bowel Sounds Present, Soft, Non Tender Extremities: No clubbing, - - Right lower extremity edema +1 Lymphatic: No Cervical, Supraclavicular, or Inguinal Adenopathy Neurological: Cranial nerves II-XII grossly intact, Neuro grossly intact Psych/Mental Status: Normal Affect Vital Signs Temp Pulse Resp BP Pulse Ox 98.3 F 109 H 14 113/70 93 05/24/17 08:17 05/24/17 08:17 05/24/17 08:17 05/24/17 08:17 05/24/17 08:17 Oxygen Flow Rate 4 Oxygen Delivery Method Nasal Cannula Weight: 62.4 kg Body Mass Index (BMI) 20.8 Intake and Output for Last 24 Hours 05/22/17 05/23/17 05/24/17 23:59 23:59 23:59 Intake Total 1884.2 / 1884.2 40 / 40 Output Total 0 / 0 Balance 1884.2 / 1884.2 40 / 40 Microbiology Past 72 Hours 05/23/17 04:50 Gram Stain - Final Wound - Right Foot Wound Culture - Preliminary Staphylococcus aureus 05/23/17 10:48 Influenza Types A,B Direct FA (HEYDI) - Final Mucosa - Nasopharyngeal Laboratory Tests Past 24 Hrs 05/23/17 05/23/17 05/23/17 06:40 11:56 18:19 WBC RBC Hgb Hct MCV MCH MCHC RDW RDW Differential Plt Count MPV Immature Gran % (Auto) Neut % (Auto) Lymph % (Auto) [place] % (Auto) Eos % (Auto) Baso % (Auto) Absolute Neuts (auto) Absolute Lymphs (auto) Total Counted PT 15.7 H INR 1.3 APTT Sodium Potassium Chloride Carbon Dioxide Anion Gap BUN Creatinine Estim Creat Clear Calc Est GFR (MDRD) Af Amer Est GFR (MDRD) Non-Af BUN/Creatinine Ratio Glucose Calcium Troponin I 0.18 H B-Natriuretic Peptide > 5000.0 H Random Vancomycin 05/24/17 05/24/17 05/24/17 06:05 06:05 06:05 WBC 8.0 RBC 3.68 L Hgb 10.1 L Hct 33.4 L MCV 90.8 MCH 27.4 MCHC 30.2 L RDW 17.9 H RDW Differential 59.5 H Plt Count 146 L MPV 9.7 Immature Gran % (Auto) 0.200 Neut % (Auto) 74.6 H Lymph % (Auto) 12.1 L [place] % (Auto) 8.2 Eos % (Auto) 3.5 Baso % (Auto) 1.4 H Absolute Neuts (auto) 6.0 Absolute Lymphs (auto) 0.97 Total Counted Not Reportable PT INR APTT Sodium 134 L Potassium 5.7 H Chloride 95 L Carbon Dioxide 24.0 Anion Gap 15 BUN 56 H Creatinine 7.77 H* Estim Creat Clear Calc 9.15 Est GFR (MDRD) Af Amer 9 L Est GFR (MDRD) Non-Af 8 L BUN/Creatinine Ratio 7.2 L Glucose 91 Calcium 8.6 Troponin I B-Natriuretic Peptide Random Vancomycin 13.5 05/24/17 05/24/17 06:05 06:05 WBC RBC Hgb Hct MCV MCH MCHC RDW RDW Differential Plt Count MPV Immature Gran % (Auto) Neut % (Auto) Lymph % (Auto) [place] % (Auto) Eos % (Auto) Baso % (Auto) Absolute Neuts (auto) Absolute Lymphs (auto) Total Counted PT 15.1 H INR 1.2 APTT 39.2 H Sodium Potassium Chloride Carbon Dioxide Anion Gap BUN Creatinine Estim Creat Clear Calc Est GFR (MDRD) Af Amer Est GFR (MDRD) Non-Af BUN/Creatinine Ratio Glucose Calcium Troponin I B-Natriuretic Peptide Random Vancomycin Assessment/Plan Active and Suspected Problems Chest pain (Acute) 1- ESRD on MWF schedule of HD. Hemodialysis session today. Ultrafiltration goal 2-3 L as tolerated URR goal is 70% HD is left arm AVF which is working well Dose medications for ESRD patients 2- Anemia: Hgb > 10. Give 1 dose of erythropoietin 5000 units 3- BMD: continue Phoslo 2 tabs with each meals for hyperphos. continue sensipar for SHPT. 4- Cellulitis of of the RLE: continue Abx . Dose medications as for ESRD patient 5- chest pain. slight elevation of troponin. R/O ACS. She is refusing stress test. Cardiology is following 6-Necrotic skin lesions. 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 patient was not able to tolerate Na thiosulfate lately because of vomiting. Please stop Coumadin since it might worsen calciphylaxis 7- Afib with RVR. Cardiology is following. Please hold Coumadin as above 8-CHF. Patient has nonischemic cardiomyopathy as per the cardiology note. Ejection fraction 30%. Patient is refusing stress test to rule out ischemic reason. We will try ultrafiltration of 2-3 L as tolerated Thank you for the consult. Please don't hesitate to call with question or concern Kaitlin Lei MD [phone]
[2017-05-24] MEDS: Acetaminophen 500 MG Tablet 1000 MG PO (12:34)
--- NOTE | 2017-05-24 13:34 | PCM.PROGNOTE ---
<Nehemiah Correia - Last Filed: 05/24/17 13:34> Patient Problems: Active and Suspected Problems Chest pain (Acute) Subjective: Patient was severely dyspneic with slight exertion today. He failed his stress test as he was severely short of breath even trying to get out of his wheelchair to go to the past. He remains mildly dyspneic at rest with few symptoms however even standing up in the room makes him severely short of breath. He has no chest pain. He has no tightness or pressure in his chest. He is not dizzy or lightheaded. He does not feel any racing or skipped beats in his chest. - Physical Exam General: Alert, Oriented x3, Cooperative HEENT: Atraumatic, PERRLA, EOMI, Normocephalic Neck: Supple, No JVD, Negative Carotid Bruits Lungs: Diminished, Rales - Faint fine crackles bilateral bases Cardiovascular: Regular rate, No murmurs Abdomen: Bowel Sounds Present, Soft, Non Tender Extremities: No edema, Capillary Refill Less than 3 Seconds Skin: No rashes, No breakdown Musculoskeletal: No Tenderness to Palpation of Joints or Extremities Neurological: Cranial nerves II-XII grossly intact Psych/Mental Status: Normal Affect, Appropriate, Alert and oriented to time, place, person, mood and affect Vital Signs Temp Pulse Resp BP Pulse Ox 98.5 F 62 20 H 145/81 H 94 05/24/17 10:20 05/24/17 11:03 05/24/17 10:20 05/24/17 10:20 05/24/17 10:20 Oxygen Flow Rate 4 Oxygen Delivery Method Nasal Cannula Weight: 62.4 kg Body Mass Index (BMI) 20.8 Intake and Output for Last 24 Hours 05/22/17 05/23/17 05/24/17 23:59 23:59 23:59 Intake Total 1884.2 / 1884.2 320 / 320 Output Total 0 / 0 Balance 1884.2 / 1884.2 320 / 320 Microbiology Past 72 Hours 05/23/17 04:50 Gram Stain - Final Wound - Right Foot Wound Culture - Preliminary Staphylococcus aureus 05/23/17 10:48 Influenza Types A,B Direct FA (HEYDI) - Final Mucosa - Nasopharyngeal Laboratory Tests Past 24 Hrs 05/23/17 05/24/17 05/24/17 18:19 06:05 06:05 WBC 8.0 RBC 3.68 L Hgb 10.1 L Hct 33.4 L MCV 90.8 MCH 27.4 MCHC 30.2 L RDW 17.9 H RDW Differential 59.5 H Plt Count 146 L MPV 9.7 Immature Gran % (Auto) 0.200 Neut % (Auto) 74.6 H Lymph % (Auto) 12.1 L [place] % (Auto) 8.2 Eos % (Auto) 3.5 Baso % (Auto) 1.4 H Absolute Neuts (auto) 6.0 Absolute Lymphs (auto) 0.97 Total Counted Not Reportable PT 15.7 H INR 1.3 APTT Sodium 134 L Potassium 5.7 H Chloride 95 L Carbon Dioxide 24.0 Anion Gap 15 BUN 56 H Creatinine 7.77 H* Estim Creat Clear Calc 9.15 Est GFR (MDRD) Af Amer 9 L Est GFR (MDRD) Non-Af 8 L BUN/Creatinine Ratio 7.2 L Glucose 91 Calcium 8.6 Random Vancomycin 05/24/17 05/24/17 05/24/17 06:05 06:05 06:05 WBC RBC Hgb Hct MCV MCH MCHC RDW RDW Differential Plt Count MPV Immature Gran % (Auto) Neut % (Auto) Lymph % (Auto) [place] % (Auto) Eos % (Auto) Baso % (Auto) Absolute Neuts (auto) Absolute Lymphs (auto) Total Counted PT 15.1 H INR 1.2 APTT 39.2 H Sodium Potassium Chloride Carbon Dioxide Anion Gap BUN Creatinine Estim Creat Clear Calc Est GFR (MDRD) Af Amer Est GFR (MDRD) Non-Af BUN/Creatinine Ratio Glucose Calcium Random Vancomycin 13.5 Assessment/Plan Active and Suspected Problems Chest pain (Acute) 1. Atrial fibrillation with RVR-now NSR. Warfarin per cardiology. Toprol increased per cardiology. 2. Elevated troponin with chest pain during dialysis-stress test cancelled. peaked at 0.21. 3. Questionable pneumonia versus acute diastolic CHF-discontinue vancomycin and azithromycin, continue cefepime empirically for now. No fever or white count. Suspect congestive heart failure as BNP is greater than 5000 and he has peripheral edema, and he did not finish his dialysis session yesterday. Echocardiogram from 2014 reviewed and demonstrates EF of 50%, stage 2 diastolic dysfunction, moderately dilated left ventricle, mild global hypokinesis of the left ventricle, mild pulmonary hypertension with RVSP 43 mmHg, 1+ MVI. Dialysis today. Continue KAROL inhibitor and metoprolol. -echo from 03/2017: EF 30%, severely dilated left ventricle, moderately severe global left ventricular systolic dysfunction, 1+ MVI, moderate pulmonary hypertension, compared to the previous the LV is more enlarged and the EF has declined, moderate concentric left ventricular hypertrophy. -Influenza screen negative -blood cultures pending. -influenzae negative. 4. End-stage renal disease-patient of Dr. Balbuena. They are consulted. Dialysis today. 5. Hypertension-somewhat elevated, will trend and adjust medications as needed. 6. Chronic hypoxic respiratory failure-chronically uses 3 L at home, currently on 4. 7. History of COPD-this does not appear to be an acute exacerbation. Continue duo nebs, incentive spirometer. 8. Nonhealing wounds RLE - continue outpatient wound care follow up and dressing changes. They appear to have a significant degree of fungal changes with skin openings which would increase risk for infection, so will begin clotrimazole bid for tinea pedis. Wound positive for staph however it does not appear to be acute cellulitis. defer abx. 9. RLE swelling - ultrasound negative for DVT. Probably more related to CHF. DVT prophylaxis: Heparin drip discontinued, follow a PTT and change to subcu twice daily dosing. DC planning: stress test not done. continue to monitor overnight. If he improves with dialysis will likely be stable for DC. PTOT as he is barely able to get up without severe SOB. This patient was seen by Nehemiah Correia PA-C under the supervision of Doctor Benton. <Dwight Bhardwaj - Last Filed: 05/24/17 14:31> - Physical Exam Vital Signs Temp Pulse Resp BP Pulse Ox 97.5 F L 73 20 H 119/78 96 05/24/17 14:16 05/24/17 14:16 05/24/17 14:16 05/24/17 14:16 05/24/17 14:16 Oxygen Flow Rate 5 Oxygen Delivery Method Nasal Cannula Weight: 137 lb 9.095 oz Body Mass Index (BMI) 20.8 Intake and Output for Last 24 Hours 05/22/17 05/23/17 05/24/17 23:59 23:59 23:59 Intake Total 1884.2 / 1884.2 320 / 320 Output Total 0 / 0 Balance 1884.2 / 1884.2 320 / 320 Microbiology Past 72 Hours 05/23/17 04:50 Gram Stain - Final Wound - Right Foot Wound Culture - Preliminary Staphylococcus aureus 05/23/17 10:48 Influenza Types A,B Direct FA (HEYDI) - Final Mucosa - Nasopharyngeal Laboratory Tests Past 24 Hrs 05/23/17 05/24/17 05/24/17 18:19 06:05 06:05 WBC 8.0 RBC 3.68 L Hgb 10.1 L Hct 33.4 L MCV 90.8 MCH 27.4 MCHC 30.2 L RDW 17.9 H RDW Differential 59.5 H Plt Count 146 L MPV 9.7 Immature Gran % (Auto) 0.200 Neut % (Auto) 74.6 H Lymph % (Auto) 12.1 L [place] % (Auto) 8.2 Eos % (Auto) 3.5 Baso % (Auto) 1.4 H Absolute Neuts (auto) 6.0 Absolute Lymphs (auto) 0.97 Total Counted Not Reportable PT 15.7 H INR 1.3 APTT Sodium 134 L Potassium 5.7 H Chloride 95 L Carbon Dioxide 24.0 Anion Gap 15 BUN 56 H Creatinine 7.77 H* Estim Creat Clear Calc 9.15 Est GFR (MDRD) Af Amer 9 L Est GFR (MDRD) Non-Af 8 L BUN/Creatinine Ratio 7.2 L Glucose 91 Calcium 8.6 Random Vancomycin 05/24/17 05/24/17 05/24/17 06:05 06:05 06:05 WBC RBC Hgb Hct MCV MCH MCHC RDW RDW Differential Plt Count MPV Immature Gran % (Auto) Neut % (Auto) Lymph % (Auto) [place] % (Auto) Eos % (Auto) Baso % (Auto) Absolute Neuts (auto) Absolute Lymphs (auto) Total Counted PT 15.1 H INR 1.2 APTT 39.2 H Sodium Potassium Chloride Carbon Dioxide Anion Gap BUN Creatinine Estim Creat Clear Calc Est GFR (MDRD) Af Amer Est GFR (MDRD) Non-Af BUN/Creatinine Ratio Glucose Calcium Random Vancomycin 13.5 Assessment/Plan Hospitalist note: I am seeing this patient in conjunction with Nehemiah Correia. I independently seen and examined the patient. Progress note above and I agree with above treatment plan. Today, patient denies any more chest pain. Breathing is better. At this time, he is on dialysis. He refused to go for stress test today. - Physical Exam General: Alert, Oriented x3, Cooperative, mildly short of breath. HEENT: Atraumatic, PERRLA, EOMI. Neck: Supple, No JVD, Negative Carotid Bruits, Trachea Midline, Thyroid Normal. Lungs: Markedly decreased breath sounds at the bases, rhonchi, dull percussion noted on both bases. No wheeze, No rales. Cardiovascular: irregular rate, Normal S1, Normal S2, PMI Normal. Abdomen: Bowel Sounds Present, Soft, Non Tender, Non-Distended, No Hepato-splenomegaly. Extremities: No clubbing, No cyanosis. Unilateral leg edema of the right leg with chronic wounds, mild redness of the right foot Skin: No rashes, multiple skin lesions of both legs and arms. Neurological: Neuro grossly intact Assessment and plan: #1 chest pain/angina: Attributed to A. fib with RVR. EKG reviewed, revealed A. fib, rate controlled with T-wave inversion in leads V5 and V6 and those are chronic, no acute ST elevation. Troponin is borderline elevated and it is chronically elevated. Cardiology consulted, recommended nuclear stress test. Patient refused to go for stress test. Today, his chest pain-free. Plan: Hemodialysis today, anticipate discharge home tomorrow #2 questionable healthcare fluid pneumonia: He is empirically on IV cefepime. Blood cultures pending. Sputum culture showed staph aureus, final is pending. #3 A. fib with RVR: Rate controlled, he is on metoprolol for rate control, started back on Coumadin for anticoagulation by cardiology. #4 unilateral right leg edema/minimal erythema: I doubt acute cellulitis, this is chronic. Fungal infection is a possibility, started on topical clotrimazole. Venous Doppler of the right leg was negative for acute DVT. #5 ESRD: On hemodialysis, nephrology consulted. #6 other chronic medical problems: Continue current medications as above. This note was generated with [employer] software. It may contain incorrect words, spelling, and punctuation that were not noted in checking the note before signing. Code Visit Inpatient E&M: 57535 Subs Hosp L2
[2017-05-24] MEDS: 0.9% NaCl Peripheral Flush Adult/Peds IV ×2 (14:25→18:05)
[2017-05-24] MEDS: Clobetasol Propionate 0.05% Cream 1 APPLIC TOPICAL ×2 (14:26→23:03)
[2017-05-24] MEDS: guaiFENesin 1,200 MG Tablet 1200 MG PO ×2 (14:26→23:00)
[2017-05-24] MEDS: Cinacalcet HCl 30 MG Tablet PO (14:26)
[2017-05-24] MEDS: Pantoprazole Sodium 20 MG Tablet PO ×2 (14:27→23:01)
[2017-05-24] MEDS: Folic Acid/Vitamin B Comp W-C 1 Capsule 1 CAP PO (14:27)
[2017-05-24] MEDS: Metoprolol(XL)Succ 100 MG Tablet PO ×2 (14:28→23:02)
[2017-05-25] VITALS (7 sets, daily range): BP systolic 126–136; BP diastolic 69–88; PULSE 62–69; RESP 16–20; TEMP 36.4–36.7; O2SAT 95–96
[2017-05-25] MEDS: Ipratropium/Albuterol Sulfate 3 ML AMPUL.NEB INHALATION (07:12)
[2017-05-25 08:20] LABS: Absolute Lymphocyte Count 1.24 X10^3/ul (0.83-4.51); Absolute Neutrophil Count 5.5 X10^3/uL (2.0-7.7); Basophil# 0.08 X10^3/uL; Eosinophil# 0.33 X10^3/uL; Eosinophils% 4.1 % (0-5); Hematocrit 31.2 % (40-54); Hemoglobin 9.9 g/dl (13.0-16.5); Lymphocyte # 1.24 X10^3/ul (4.0); Lymphocyte % 15.4 % (19-41); Mean Corp Hgb Conc 31.7 g/gl (32-36); Mean Corpuscular Hgb 28.1 pg (27.0-32.0); Mean Corpuscular Volume 88.6 fL (80-94); Mean Platelet Vol. 10.5 fl (6.2-12.0); Monocyte# 0.88 X10^3/uL; Neutrophil # 5.45 X10^3/uL (2.7-7.7); Neutrophil % 67.9 % (47-70); Platelet Count 153 K/mm3 (150-450); RBC Distribution Width CV 17.5 % (11.6-14.6); RBC Distribution Width SD 54.4 fl (35.1-43.9); Red Blood Count 3.52 M/mm3 (4.6-6.2)
[2017-05-25 08:25] LABS: Differential Indicated SCAN CRITERIA MET; POSITIVE COUNT NO; POSITIVE DIFFERENTIAL NO; POSITIVE MORPHOLOGY YES
[2017-05-25 08:42] LABS: Anion Gap 19 (5-15); BUN 35 mg/dL (7-18); BUN/Creat Ratio 6.5 RATIO (10-20); Calcium,Total 8.4 mg/dL (8.5-10.1); Chloride 93 mmol/L (98-107); EST Glomerular Filtration Rate 12 mL/min (>60); Est Glom Filt Rate - Afr Amer 14 mL/min (>60); Estimated Creatinine Clearance 13.35 ml/min; Glucose 78 mg/dL (70-110); Potassium 4.9 mmol/L (3.5-5.1); Sodium Level 134 mmol/L (136-145)
[2017-05-25] MEDS: 0.9% NaCl Peripheral Flush Adult/Peds IV (09:00)
[2017-05-25] MEDS: Metoprolol(XL)Succ 100 MG Tablet PO (09:00)
[2017-05-25] MEDS: Clobetasol Propionate 0.05% Cream 1 APPLIC TOPICAL (09:00)
[2017-05-25] MEDS: Lisinopril 20 MG Tablet PO (09:00)
[2017-05-25] MEDS: guaiFENesin 1,200 MG Tablet 1200 MG PO (09:00)
[2017-05-25] MEDS: Cinacalcet HCl 30 MG Tablet PO (09:00)
[2017-05-25] MEDS: Pantoprazole Sodium 20 MG Tablet PO (09:01)
[2017-05-25] MEDS: Folic Acid/Vitamin B Comp W-C 1 Capsule 1 CAP PO (09:01)
[2017-05-25] MEDS: oxyCODONE 5 MG Tablet PO (09:01)
[2017-05-25] MEDS: Calcium Acetate 667 MG Capsule 1334 MG PO (09:01)
--- NOTE | 2017-05-25 10:23 | PN.CARD_ITS ---
Subjectve: Patient was seen and evaluated. And is doing well sitting in the chair eating breakfast heartily. Objective: Vital Signs Temp Pulse Resp BP Pulse Ox 98.0 F 62 18 126/69 H 95 05/25/17 08:15 05/25/17 09:00 05/25/17 08:15 05/25/17 08:15 05/25/17 08:15 Oxygen Flow Rate 3 Oxygen Delivery Method Nasal Cannula Weight: 139 lb 8.842 oz Body Mass Index (BMI) 20.8 Intake and Output for Last 24 Hours 05/23/17 05/24/17 05/25/17 23:59 23:59 23:59 Intake Total 1884.2 / 1884.2 900 / 900 100 / 100 Output Total 1400 / 1400 0 / 0 Balance 1884.2 / 1884.2 -500 / -500 100 / 100 General: Awake, Alert, Oriented x 3 HEENT: Atraumatic Neck: Supple Lungs: Clear to auscultation Cardiovascular: Regular Rhythm Vascular: No Carotid Bruits, Normal Femoral Pulses, Normal Radial Pulses, Normal Dorsalis Pedal Pulse, Normal Posterior Tibial Pulses Abdomen: Bowel Sounds Present, Soft, Non Tender, No HSM, No Organomegaly Extremities: No Cyanosis, No Clubbing, No edema Neurological: No Focal Motor or Sensory Deficit 05/25/17 07:43: WBC 8.0, RBC 3.52 L, Hgb 9.9 L, Hct 31.2 L, MCV 88.6, MCH 28.1, MCHC 31.7 L, RDW 17.5 H, RDW Differential 54.4 H, Plt Count 153, MPV 10.5, Immature Gran % (Auto) 0.600, Neut % (Auto) 67.9, Lymph % (Auto) 15.4 L, [place] % (Auto) 11.0 H, Eos % (Auto) 4.1, Baso % (Auto) 1.0, Absolute Neuts (auto) 5.5, Total Counted Not Reportable 05/25/17 07:43: Sodium 134 L, Potassium 4.9, Chloride 93 L, Carbon Dioxide 22.0 , Anion Gap 19 H, BUN 35 H, Creatinine 5.40 H, Est GFR (MDRD) Af Amer 14 L, Est GFR (MDRD) Non-Af 12 L, BUN/Creatinine Ratio 6.5 L, Glucose 78, Calcium 8.4 L Rhythm: Normal sinus rhythm Assessment/Plan 1. Abnormal cardiac enzymes. Patient has no previously documented evidence of obstructive coronary disease. I suspect the above is secondary to myocardial necrosis which may be due to demand ischemia. His blood pressure has been high as well as his atrial fibrillation could contribute to the above especially with his markedly dilated left ventricle. At this particular time I would not suggest any test. We will continue to manage him medically. 2. Nonischemic cardiomyopathy He does have evidence of nonischemic cardiomyopathy his most recent echocardiogram from last month demonstrated an ejection fraction of 30% with a dilated left ventricle. Blood pressure needs to continue to be aggressively monitored and controlled. This will lead to some remodeling. 3. Congestive heart failure acute systolic Above is likely secondary to his nonischemic cardiomyopathy hypertensive heart disease and his paroxysmal atrial fibrillation. He will continue with dialysis for fluid removal. 4. Hypertension His blood pressure had been elevated as an outpatient and he had his lisinopril increased. Toprol was increased to 200 mg a day and he appears to be tolerating this. 5. Status post ICD implantation. His ICD was recently checked in the office and is noted to be functioning well he has not had any defibrillator discharges and we will continue to monitor him in the office. 6. Paroxysmal atrial fibrillation Was on anticoagulation for this but he discontinued it because of significant blotches on his arm as well as the amiodarone. At this time he will continue on the beta-michael only. Anticoagulation can be resumed as appropriate. Overall from the cardiac standpoint he is stable to be managed as an outpatient. Thank you for allowing me to participate in his care.
[2017-05-25] MEDS: Ondansetron 4 MG/2 ML Vial IV (10:33)
[2017-05-25] MEDS: Magnesium Hydroxide 30 ML UDC PO (10:33)
--- NOTE | 2017-05-25 12:08 | DCINST_ITS ---
- Discharge Diagnoses Current Active Problems: Current Active and Chronic Problems Chest pain (Acute) You will use the following diet at home:: Cardiac, Renal (restricted protein/ sodium) Your food should be the consistency of: Regular Your liquids should be the consistency of: Regular/Thin Discharge Activity: Return to Normal Activity Allergies/Adverse Reactions: Allergies No Known Allergies Allergy (Verified 05/22/17 15:13) Medications to take at Discharge Acetaminophen [Tylenol] 1,000 mg PO Q4H PRN PRN 05/17/15 Calcium Acetate [Phoslo Gel Cap] 2 capsule PO TIDCM 05/17/15 Lisinopril [Zestril] 20 mg PO DAILY 05/17/15 Cinacalcet HCl [Sensipar] 30 mg PO DAILY 09/08/15 Omeprazole 20 mg PO BID 02/05/17 Albuterol Sulfate [Ventolin Hfa] 1 puff INHALATION Q4H PRN PRN 05/22/17 Fluocinonide 1 applicatio TOPICAL BID 05/22/17 Folic Acid/Vit Bcomp,C [Renal-Miguel Angel Tablet] 0.8 mg PO DAILY 05/22/17 Hydroxyzine Pamoate 50 mg PO BID 05/22/17 Oxycodone HCl/Acetaminophen [Percocet 5-325] 1 tablet PO Q6H PRN PRN 05/22/17 Clindamycin [Cleocin] 150 mg PO 4X/DAY #28 cap 05/25/17 Metoprolol(XL)Succ [Toprol Xl (Beta Rosemarie)] 100 mg PO BID #60 tab 05/25/17 Warfarin [Coumadin] 4 mg PO DAILY@1700 #15 tab 05/25/17 The following prescriptions were given: Clindamycin [Cleocin] 150 mg PO 4X/DAY #28 cap Metoprolol(XL)Succ [Toprol Xl (Beta Rosemarie)] 100 mg PO BID #60 tab Warfarin [Coumadin] 4 mg PO DAILY@1700 #15 tab Orders to be completed after discharge: Prothrombin Time w/INR Time Frame: 1 Day, Location: Laboratory Primary Care Physician: Conner Lopez MD [Primary Care Provider] - Please follow up with your Primary Care Physician in: within 1 week Please Follow Up With: Terence Gould MD When: 1-2 weeks Please Follow Up With: [facility] When: 1-2 weeks Please Follow Up With: Kaitlin Lei MD When: Resume normal dialysis schedule Proposed Discharge Date: 05/25/17
[2017-05-25 12:42] LABS: International Normalized Ratio 1.2; Prothrombin Time (Protime)PT. 14.8 SECONDS (11.7-14.9)
--- NOTE | 2017-05-25 14:56 | PCM.DC.SUM ---
<Nehemiah Correia - Last Filed: 05/25/17 14:56> Discharge Date and Diagnosis Date of Admission: 05/23/17 Date of Discharge: 05/25/17 - Primary Discharge Diagnosis Acute systolic CHF exacerbation AF with RVR Elevated troponin ESRD HCAP Nonhealing wounds RLE hx COPD HTN Chronic hypoxic respiratory failure - Secondary Discharge Diagnosis Chronic Problems ESRD (end stage renal disease) (Chronic) HTN (hypertension) (Chronic) Afib (Chronic) paroxysmal on Eliquis PAF (paroxysmal atrial fibrillation) (Chronic) Pulmonary HTN (Chronic) Anemia with chronic illness (Chronic) Non-compliance (Chronic) non-compliant with meds and with dialysis Non-compliance with renal dialysis (Chronic) Hyperglycemia (Chronic) Bilateral pleural effusion (Chronic) S/p nephrectomy (Chronic) High-grade atrioventricular block (Chronic) Cardiomyopathy (Chronic) Dependent on hemodialysis (Chronic) Ulcer of foot (Chronic) Supplemental oxygen dependent (Chronic) CHF (congestive heart failure) (Chronic) Coronary artery arteriosclerosis (Chronic) Parathyroid disease (Chronic) COPD (chronic obstructive pulmonary disease) (Chronic) History of nephrectomy (Chronic) History of kidney cancer (Chronic) Hospital Course and Treatment Imaging Results: Chest [id number] bilateral pleural effusions with mid and lower lung consolidation Consultations 05/22/17 21:42 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 He also had a new cough over the last 4 days. He had ended his dialysis session earlier and left without completing it. He presented to the emergency room in atrial fibrillation with RVR and was administered nitro paste with relief of chest pain. He was given Cardizem for rate control placed on heparin. Cardiology and nephrology were consulted. He had a slight elevation in his troponin and stress test was recommended. He has end-stage renal disease and appeared to be volume overloaded and had an elevated BNP with moderate pleural effusions and was felt to be in an acute CHF exacerbation likely exacerbated by not completing dialysis. Recent echo demonstrated an EF of 30%, moderate pulmonary hypertension, moderately severe global LV systolic dysfunction and a severely dilated left ventricle. Cardiology recommended a stress test at this time however the patient failed to completed as he became severely dyspneic even trying to get out of his wheelchair to go get on the table for the stress test. The patient underwent dialysis and had significant improvement in all of his symptoms. He continued to be somewhat short of breath with exertion. He was initially treated with Vanco, cefepime, and azithromycin for suspected HCAP, remained afebrile with no leukocytosis and was transitioned to oral doxycycline for 7 more days of therapy. His right lower extremity was swollen suspected secondary to a chronic foot wound, we checked an ultrasound of the right lower extremity to rule out DVT and this was negative. He is in stable condition and discharged home as there is no further intervention indicated by cardiology. 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 He will need to have his INR checked tomorrow and follow-up with his PCP within a week. He will also need to follow-up with cardiology to see if any further intervention will be needed as his clinical condition improves. Please resume dialysis on normal schedule. He also needs to continue to follow with the wound care center for treatment of his chronic lower extremity wound. This patient was seen by Nehemiah Correia PA-C under the supervision of Doctor Bhardwaj. [] Discharge Diet: Low fat/ Low Cholesterol, 2000 mg Sodium Diet, Renal Diet Discharge Activity: Return to Normal Activity Home Medications: Medications to take at Discharge Acetaminophen [Tylenol] 1,000 mg PO Q4H PRN PRN 05/17/15 Calcium Acetate [Phoslo Gel Cap] 2 capsule PO TIDCM 05/17/15 Lisinopril [Zestril] 20 mg PO DAILY 05/17/15 Cinacalcet HCl [Sensipar] 30 mg PO DAILY 09/08/15 Omeprazole 20 mg PO BID 02/05/17 Albuterol Sulfate [Ventolin Hfa] 1 puff INHALATION Q4H PRN PRN 05/22/17 Fluocinonide 1 applicatio TOPICAL BID 05/22/17 Folic Acid/Vit Bcomp,C [Renal-Miguel Angel Tablet] 0.8 mg PO DAILY 05/22/17 Hydroxyzine Pamoate 50 mg PO BID 05/22/17 Oxycodone HCl/Acetaminophen [Percocet 5-325] 1 tablet PO Q6H PRN PRN 05/22/17 Clindamycin [Cleocin] 150 mg PO 4X/DAY #28 cap 05/25/17 Metoprolol(XL)Succ [Toprol Xl (Beta Rosemarie)] 100 mg PO BID #60 tab 05/25/17 Warfarin [Coumadin] 4 mg PO DAILY@1700 #15 tab 05/25/17 Following Prescrptions Were Given to Patient: Clindamycin [Cleocin] 150 mg PO 4X/DAY #28 cap Metoprolol(XL)Succ [Toprol Xl (Beta Rosemarie)] 100 mg PO BID #60 tab Warfarin [Coumadin] 4 mg PO DAILY@1700 #15 tab Primary Care Physician: Conner Lopez MD [Primary Care Provider] - Please follow up with your Primary Care Physician in: within 1 week Please Follow Up With: Terence Gould MD When: 1-2 weeks Please Follow Up With: [facility]ound Clinic When: 1-2 weeks Please Follow Up With: Kaitlin Lei MD When: Resume normal dialysis schedule Disposition: Home Minutes spent on discharge:: 35 Patient Condition:: Stable Meaningful Use Info Meaningful Use Diagnoses (Choose all that apply): CHF - CHF KAROL/ARB ordered at discharge?: Yes Documented LVEF (%): 30 <Dwight Bhardwaj E - Last Filed: 05/25/17 15:48> Discharge Date and Diagnosis - Secondary Discharge Diagnosis Chronic Problems ESRD (end stage renal disease) (Chronic) HTN (hypertension) (Chronic) Afib (Chronic) paroxysmal on Eliquis PAF (paroxysmal atrial fibrillation) (Chronic) Pulmonary HTN (Chronic) Anemia with chronic illness (Chronic) Non-compliance (Chronic) non-compliant with meds and with dialysis Non-compliance with renal dialysis (Chronic) Hyperglycemia (Chronic) Bilateral pleural effusion (Chronic) S/p nephrectomy (Chronic) High-grade atrioventricular block (Chronic) Cardiomyopathy (Chronic) Dependent on hemodialysis (Chronic) Ulcer of foot (Chronic) Supplemental oxygen dependent (Chronic) CHF (congestive heart failure) (Chronic) Coronary artery arteriosclerosis (Chronic) Parathyroid disease (Chronic) COPD (chronic obstructive pulmonary disease) (Chronic) History of nephrectomy (Chronic) History of kidney cancer (Chronic) Hospital Course and Treatment Imaging Results: Clinical Impression(s) from Imaging Studies Chest X-Ray 05/22/17 15:34 IMPRESSION: Moderate bilateral pleural effusions with mid and lower lung consolidation. 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 Patient was admitted for chest pain attributed to angina pectoris, A. fib with RVR and questionable healthcare associated pneumonia. He had right lower extremity swelling and minimal erythema of the right foot which is attributed to lymphedema and chronic stasis changes. Patient refused to go for stress test that was requested by cardiology. - Physical Exam General: Alert, Oriented x3, Cooperative, mildly short of breath. HEENT: Atraumatic, PERRLA, EOMI. Neck: Supple, No JVD, Negative Carotid Bruits, Trachea Midline, Thyroid Normal. Lungs: Markedly decreased breath sounds at the bases, rhonchi, dull percussion noted on both bases. No wheeze, No rales. Cardiovascular: irregular rate, Normal S1, Normal S2, PMI Normal. Abdomen: Bowel Sounds Present, Soft, Non Tender, Non-Distended, No Hepato-splenomegaly. Extremities: No clubbing, No cyanosis. Unilateral leg edema of the right leg with chronic wounds, mild redness of the right foot Skin: No rashes, multiple skin lesions of both legs and arms. Neurological: Neuro grossly intact Assessment and plan: #1 chest pain/angina: Attributed to A. fib with RVR. His troponin was chronically elevated, EKG revealed no acute ST elevation and no acute ischemic changes. Cardiology consulted and recommended stress test but patient refused. After stabilization of the A. fib with RVR, patient has no more chest pain. #2 probable acute systolic CHF: Continued on hemodialysis. #3 questionable healthcare fluid pneumonia: He is empirically on IV cefepime. Blood cultures pending. Sputum culture showed staph aureus, final is pending. #4 A. fib with RVR: Treated with IV Cardizem drip and within 4. Of time, heart rate stabilized and controlled. He was continued on metoprolol for rate control and continued on Coumadin for anticoagulation. #5 unilateral right leg edema/minimal erythema: Received empiric IV antibiotics for possible cellulitis which is unlikely. fungal infection is a possibility, started on topical clotrimazole. Venous Doppler of the right leg was negative for acute DVT. #6 ESRD: Continued on hemodialysis, nephrology consulted. Patient discharged home in a stable medical condition, discharged on clindamycin empirically for possible right lower extremity cellulitis as the wound culture of the multiple skin scabs of the right foot revealed MSSA, restarted back on Coumadin that was discontinued recently by nephrology because of possible calciphylaxis, continued on his other chronic home medication without any changes, plan to follow-up with PCP in 1 week, follow-up with cardiology in 1-2 weeks and follow-up with wound care center within 1-2 weeks, follow-up with nephrology regarding dialysis. This note was generated with [employer] dictation software. It may contain incorrect words, spelling, and punctuation that were not noted in checking the note before signing. Code Visit Inpatient E&M: 85509 Disch Hosp
--- NOTE | 2017-05-25 15:15 | DS.PCM_ITS ---
<Nehemiah Correia - Last Filed: 05/25/17 14:56> Discharge Date and Diagnosis Date of Admission: 05/23/17 Date of Discharge: 05/25/17 - Primary Discharge Diagnosis Acute systolic CHF exacerbation AF with RVR Elevated troponin ESRD HCAP Nonhealing wounds RLE hx COPD HTN Chronic hypoxic respiratory failure - Secondary Discharge Diagnosis Chronic Problems ESRD (end stage renal disease) (Chronic) HTN (hypertension) (Chronic) Afib (Chronic) paroxysmal on Eliquis PAF (paroxysmal atrial fibrillation) (Chronic) Pulmonary HTN (Chronic) Anemia with chronic illness (Chronic) Non-compliance (Chronic) non-compliant with meds and with dialysis Non-compliance with renal dialysis (Chronic) Hyperglycemia (Chronic) Bilateral pleural effusion (Chronic) S/p nephrectomy (Chronic) High-grade atrioventricular block (Chronic) Cardiomyopathy (Chronic) Dependent on hemodialysis (Chronic) Ulcer of foot (Chronic) Supplemental oxygen dependent (Chronic) CHF (congestive heart failure) (Chronic) Coronary artery arteriosclerosis (Chronic) Parathyroid disease (Chronic) COPD (chronic obstructive pulmonary disease) (Chronic) History of nephrectomy (Chronic) History of kidney cancer (Chronic) Hospital Course and Treatment Imaging Results: Chest [id number] bilateral pleural effusions with mid and lower lung consolidation Consultations 05/22/17 21:42 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 He also had a new cough over the last 4 days. He had ended his dialysis session earlier and left without completing it. He presented to the emergency room in atrial fibrillation with RVR and was administered nitro paste with relief of chest pain. He was given Cardizem for rate control placed on heparin. Cardiology and nephrology were consulted. He had a slight elevation in his troponin and stress test was recommended. He has end-stage renal disease and appeared to be volume overloaded and had an elevated BNP with moderate pleural effusions and was felt to be in an acute CHF exacerbation likely exacerbated by not completing dialysis. Recent echo demonstrated an EF of 30%, moderate pulmonary hypertension, moderately severe global LV systolic dysfunction and a severely dilated left ventricle. Cardiology recommended a stress test at this time however the patient failed to completed as he became severely dyspneic even trying to get out of his wheelchair to go get on the table for the stress test. The patient underwent dialysis and had significant improvement in all of his symptoms. He continued to be somewhat short of breath with exertion. He was initially treated with Vanco, cefepime, and azithromycin for suspected HCAP, remained afebrile with no leukocytosis and was transitioned to oral doxycycline for 7 more days of therapy. His right lower extremity was swollen suspected secondary to a chronic foot wound, we checked an ultrasound of the right lower extremity to rule out DVT and this was negative. He is in stable condition and discharged home as there is no further intervention indicated by cardiology. 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 He will need to have his INR checked tomorrow and follow-up with his PCP within a week. He will also need to follow-up with cardiology to see if any further intervention will be needed as his clinical condition improves. Please resume dialysis on normal schedule. He also needs to continue to follow with the wound care center for treatment of his chronic lower extremity wound. This patient was seen by Nehemiah Correia PA-C under the supervision of Doctor Bhardwaj. [] Discharge Diet: Low fat/ Low Cholesterol, 2000 mg Sodium Diet, Renal Diet Discharge Activity: Return to Normal Activity Home Medications: Medications to take at Discharge Acetaminophen [Tylenol] 1,000 mg PO Q4H PRN PRN 05/17/15 Calcium Acetate [Phoslo Gel Cap] 2 capsule PO TIDCM 05/17/15 Lisinopril [Zestril] 20 mg PO DAILY 05/17/15 Cinacalcet HCl [Sensipar] 30 mg PO DAILY 09/08/15 Omeprazole 20 mg PO BID 02/05/17 Albuterol Sulfate [Ventolin Hfa] 1 puff INHALATION Q4H PRN PRN 05/22/17 Fluocinonide 1 applicatio TOPICAL BID 05/22/17 Folic Acid/Vit Bcomp,C [Renal-Miguel Angel Tablet] 0.8 mg PO DAILY 05/22/17 Hydroxyzine Pamoate 50 mg PO BID 05/22/17 Oxycodone HCl/Acetaminophen [Percocet 5-325] 1 tablet PO Q6H PRN PRN 05/22/17 Clindamycin [Cleocin] 150 mg PO 4X/DAY #28 cap 05/25/17 Metoprolol(XL)Succ [Toprol Xl (Beta Rosemarie)] 100 mg PO BID #60 tab 05/25/17 Warfarin [Coumadin] 4 mg PO DAILY@1700 #15 tab 05/25/17 Following Prescrptions Were Given to Patient: Clindamycin [Cleocin] 150 mg PO 4X/DAY #28 cap Metoprolol(XL)Succ [Toprol Xl (Beta Rosemarie)] 100 mg PO BID #60 tab Warfarin [Coumadin] 4 mg PO DAILY@1700 #15 tab Primary Care Physician: Conner Lopez MD [Primary Care Provider] - Please follow up with your Primary Care Physician in: within 1 week Please Follow Up With: Terence Gould MD When: 1-2 weeks Please Follow Up With: Wound Clinic When: 1-2 weeks Please Follow Up With: Kaitlin Lei MD When: Resume normal dialysis schedule Disposition: Home Minutes spent on discharge:: 35 Patient Condition:: Stable Meaningful Use Info Meaningful Use Diagnoses (Choose all that apply): CHF - CHF KAROL/ARB ordered at discharge?: Yes Documented LVEF (%): 30 <Dwight Bhardwaj E - Last Filed: 05/25/17 15:48> Discharge Date and Diagnosis - Secondary Discharge Diagnosis Chronic Problems ESRD (end stage renal disease) (Chronic) HTN (hypertension) (Chronic) Afib (Chronic) paroxysmal on Eliquis PAF (paroxysmal atrial fibrillation) (Chronic) Pulmonary HTN (Chronic) Anemia with chronic illness (Chronic) Non-compliance (Chronic) non-compliant with meds and with dialysis Non-compliance with renal dialysis (Chronic) Hyperglycemia (Chronic) Bilateral pleural effusion (Chronic) S/p nephrectomy (Chronic) High-grade atrioventricular block (Chronic) Cardiomyopathy (Chronic) Dependent on hemodialysis (Chronic) Ulcer of foot (Chronic) Supplemental oxygen dependent (Chronic) CHF (congestive heart failure) (Chronic) Coronary artery arteriosclerosis (Chronic) Parathyroid disease (Chronic) COPD (chronic obstructive pulmonary disease) (Chronic) History of nephrectomy (Chronic) History of kidney cancer (Chronic) Hospital Course and Treatment Imaging Results: Clinical Impression(s) from Imaging Studies Chest X-Ray 05/22/17 15:34 IMPRESSION: Moderate bilateral pleural effusions with mid and lower lung consolidation. 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 Patient was admitted for chest pain attributed to angina pectoris, A. fib with RVR and questionable healthcare associated pneumonia. He had right lower extremity swelling and minimal erythema of the right foot which is attributed to lymphedema and chronic stasis changes. Patient refused to go for stress test that was requested by cardiology. - Physical Exam General: Alert, Oriented x3, Cooperative, mildly short of breath. HEENT: Atraumatic, PERRLA, EOMI. Neck: Supple, No JVD, Negative Carotid Bruits, Trachea Midline, Thyroid Normal. Lungs: Markedly decreased breath sounds at the bases, rhonchi, dull percussion noted on both bases. No wheeze, No rales. Cardiovascular: irregular rate, Normal S1, Normal S2, PMI Normal. Abdomen: Bowel Sounds Present, Soft, Non Tender, Non-Distended, No Hepato- splenomegaly. Extremities: No clubbing, No cyanosis. Unilateral leg edema of the right leg with chronic wounds, mild redness of the right foot Skin: No rashes, multiple skin lesions of both legs and arms. Neurological: Neuro grossly intact Assessment and plan: #1 chest pain/angina: Attributed to A. fib with RVR. His troponin was chronically elevated, EKG revealed no acute ST elevation and no acute ischemic changes. Cardiology consulted and recommended stress test but patient refused. After stabilization of the A. fib with RVR, patient has no more chest pain. #2 probable acute systolic CHF: Continued on hemodialysis. #3 questionable healthcare fluid pneumonia: He is empirically on IV cefepime. Blood cultures pending. Sputum culture showed staph aureus, final is pending. #4 A. fib with RVR: Treated with IV Cardizem drip and within 4. Of time, heart rate stabilized and controlled. He was continued on metoprolol for rate control and continued on Coumadin for anticoagulation. #5 unilateral right leg edema/minimal erythema: Received empiric IV antibiotics for possible cellulitis which is unlikely. fungal infection is a possibility, started on topical clotrimazole. Venous Doppler of the right leg was negative for acute DVT. #6 ESRD: Continued on hemodialysis, nephrology consulted. Patient discharged home in a stable medical condition, discharged on clindamycin empirically for possible right lower extremity cellulitis as the wound culture of the multiple skin scabs of the right foot revealed MSSA, restarted back on Coumadin that was discontinued recently by nephrology because of possible calciphylaxis, continued on his other chronic home medication without any changes, plan to follow-up with PCP in 1 week, follow-up with cardiology in 1-2 weeks and follow-up with wound care center within 1-2 weeks, follow-up with nephrology regarding dialysis. This note was generated with [employer] dictation software. It may contain incorrect words, spelling, and punctuation that were not noted in checking the note before signing. Code Visit Inpatient E&M: 68301 Disch Hosp
== END 2017-05-25 13:57 | disposition home or self-care (01) | DRG 308 ==
LOC: ED 20:23 → PCU 20:28
PROVIDERS: Internal Medicine Cardiovascular Disease; Physician Assistant; Admitting Provider Internal Medicine; Emergency Provider Emergency Medicine; Family Provider Family Medicine; PCP Family Medicine; Visit Provider Hospitalist
DX: I48.0 Paroxysmal atrial fibrillation (principal); J18.9 Pneumonia, unspecified organism; I13.2 Hypertensive heart and chronic kidney disease with heart failure and with stage 5 chronic kidney disease, or end stage renal disease; J96.11 Chronic respiratory failure with hypoxia; I27.20 Pulmonary hypertension, unspecified; N18.6 End stage renal disease; I50.23 Acute on chronic systolic (congestive) heart failure; L03.115 Cellulitis of right lower limb; J44.0 Chronic obstructive pulmonary disease with (acute) lower respiratory infection; I25.10 Atherosclerotic heart disease of native coronary artery without angina pectoris; E21.5 Disorder of parathyroid gland, unspecified; L97.512 Non-pressure chronic ulcer of other part of right foot with fat layer exposed; D63.1 Anemia in chronic kidney disease; R60.0 Localized edema; M79.89 Other specified soft tissue disorders; Y95 Nosocomial condition; Z99.81 Dependence on supplemental oxygen; Z99.2 Dependence on renal dialysis; Z90.5 Acquired absence of kidney; Z85.528 Personal history of other malignant neoplasm of kidney; Z87.891 Personal history of nicotine dependence; Z79.01 Long term (current) use of anticoagulants; Z98.890 Other specified postprocedural states; Z79.899 Other long term (current) drug therapy; Z95.810 Presence of automatic (implantable) cardiac defibrillator; Z91.14 Patient's other noncompliance with medication regimen; Z91.15 Patient's noncompliance with renal dialysis
CPT/HCPCS: 36415; 71010; 80048; 80053; 80202; 83605; 83690; 83880; 84484; 85025; 85027; 85610; 85730; 87040; 87070; 87077; 87186; 87205; 87804; 90937; 93005; 93971; 94640; 97162; 97166; 97597; 97802; 99205; 99251; 99285; J7030; A4216; G0257; G0463; J2405; J2785

== ENCOUNTER 2017-06-25 11:30 | Outpatient (RCR) | payer MEDICARE, MEDICAID, SELFPAY ==
[2017-05-27 01:41] VITALS: BP 147/85; PULSE 72; RESP 18; TEMP 36.6; BMI 20.5
--- NOTE | 2017-06-04 19:41 | LEAS ---
Arterial Study - Arterial Study Arterial Study: This is a 57-year-old male with a history of end-stage renal disease, peripheral arterial disease, hypertension, atrial fibrillation, diabetes mellitus, coronary artery disease, congestive heart failure, and chronic obstructive pulmonary disease. The patient was brought to the noninvasive vascular laboratory at this time for the purpose of bilateral noninvasive lower extremity arterial assessment. Doppler signal assessment was used to evaluate the pulses at ankle level bilaterally. The posterior tibial and dorsalis pedis pulses were triphasic bilaterally. Segmental limb pressures were obtained bilaterally. The right ankle pressure, as determined by posterior tibial pulse, was measured at 244 mmHg. The right ankle pressure, as determined by dorsalis pedis pulse, was measured at 244 mmHg. The right digital pressure was measured at 186 mmHg. The left ankle pressure, as determined by posterior tibial pulse, was measured at 227 mmHg. The left ankle pressure, as determined by dorsalis pedis pulse, was measured at 230 mmHg. The left digital pressure was measured at 197 mmHg. Pulse-volume recordings were obtained bilaterally and segmentally. Waveform amplitudes appeared to be satisfactory at low thigh, calf, and ankle levels bilaterally. Waveform amplitude at digital level on the right appeared relatively normal, though slightly diminished on the left. Resting ankle-brachial indices were calculated bilaterally. The resting right ankle-brachial index was calculated to be 1.62. The resting left ankle-brachial index was calculated to be 1.52. Digital-brachial indices were calculated bilaterally. The right digital-brachial index was calculated to be 1.23. The left digital-brachial index was calculated to be 1.30. Impression: Based upon the findings of this resting noninvasive lower extremity arterial study, there is no evidence of significant atherosclerotic peripheral arterial occlusive disease in the lower extremities bilaterally. Triphasic waveforms were noted at ankle level bilaterally. Resting ankle-brachial indices and digital-brachial indices are supra-normal bilaterally, indicative of arterial calcification bilaterally. In this regard, clinical correlation is advised.
--- NOTE | 2017-06-04 19:44 | LEAS_ITS ---
Arterial Study - Arterial Study Arterial Study: This is a 57-year-old male with a history of end-stage renal disease, peripheral arterial disease, hypertension, atrial fibrillation, diabetes mellitus, coronary artery disease, congestive heart failure, and chronic obstructive pulmonary disease. The patient was brought to the noninvasive vascular laboratory at this time for the purpose of bilateral noninvasive lower extremity arterial assessment. Doppler signal assessment was used to evaluate the pulses at ankle level bilaterally. The posterior tibial and dorsalis pedis pulses were triphasic bilaterally. Segmental limb pressures were obtained bilaterally. The right ankle pressure, as determined by posterior tibial pulse, was measured at 244 mmHg. The right ankle pressure, as determined by dorsalis pedis pulse, was measured at 244 mmHg. The right digital pressure was measured at 186 mmHg. The left ankle pressure, as determined by posterior tibial pulse, was measured at 227 mmHg. The left ankle pressure, as determined by dorsalis pedis pulse, was measured at 230 mmHg. The left digital pressure was measured at 197 mmHg. Pulse-volume recordings were obtained bilaterally and segmentally. Waveform amplitudes appeared to be satisfactory at low thigh, calf, and ankle levels bilaterally. Waveform amplitude at digital level on the right appeared relatively normal, though slightly diminished on the left. Resting ankle-brachial indices were calculated bilaterally. The resting right ankle-brachial index was calculated to be 1.62. The resting left ankle- brachial index was calculated to be 1.52. Digital-brachial indices were calculated bilaterally. The right digital- brachial index was calculated to be 1.23. The left digital-brachial index was calculated to be 1.30. Impression: Based upon the findings of this resting noninvasive lower extremity arterial study, there is no evidence of significant atherosclerotic peripheral arterial occlusive disease in the lower extremities bilaterally. Triphasic waveforms were noted at ankle level bilaterally. Resting ankle-brachial indices and digital-brachial indices are supra-normal bilaterally, indicative of arterial calcification bilaterally. In this regard, clinical correlation is advised.
[2017-06-11 11:27] VITALS: BP 151/95; PULSE 68; RESP 18; TEMP 36.8; BMI 20.5
--- NOTE | 2017-06-11 12:29 | PCM.WC.HP ---
(1) ESRD (end stage renal disease) Status: Chronic Current Visit: Yes Code(s): N18.6 - End stage renal disease (2) HTN (hypertension) Status: Chronic Current Visit: No Qualifiers: Code(s): I10 - Essential (primary) hypertension (3) Afib Status: Chronic Current Visit: No Qualifiers: Code(s): I48.91 - Unspecified atrial fibrillation Comment: paroxysmal on Eliquis (4) PAF (paroxysmal atrial fibrillation) Status: Chronic Current Visit: No Code(s): I48.0 - Paroxysmal atrial fibrillation (5) Pulmonary HTN Status: Chronic Current Visit: No Code(s): I27.2 - Other secondary pulmonary hypertension (6) Anemia with chronic illness Status: Chronic Current Visit: No Code(s): D63.8 - Anemia in other chronic diseases classified elsewhere (7) Non-compliance Status: Chronic Current Visit: Yes Code(s): Z91.19 - Patient's noncompliance with other medical treatment and regimen Comment: non-compliant with meds and with dialysis (8) Non-compliance with renal dialysis Status: Chronic Current Visit: No Code(s): Z91.15 - Patient's noncompliance with renal dialysis (9) HCAP (healthcare-associated pneumonia) Status: Acute Current Visit: No Code(s): J18.9 - Pneumonia, unspecified organism (10) Hypoxia Status: Acute Current Visit: No Code(s): R09.02 - Hypoxemia (11) Respiratory failure with hypoxia Status: Acute Current Visit: No Code(s): J96.91 - Respiratory failure, unspecified with hypoxia (12) Encounter for hemodialysis for end-stage renal disease Status: Acute Current Visit: No Code(s): N18.6 - End stage renal disease; Z99.2 - Dependence on renal dialysis (13) Hyperglycemia Status: Chronic Current Visit: No Code(s): R73.9 - Hyperglycemia, unspecified (14) Bilateral pleural effusion Status: Chronic Current Visit: No Code(s): J90 - Pleural effusion, not elsewhere classified (15) Fluid overload Status: Acute Current Visit: No Code(s): E87.70 - Fluid overload, unspecified (16) S/p nephrectomy Status: Chronic Current Visit: No Code(s): Z90.5 - Acquired absence of kidney (17) Colitis Status: Acute Current Visit: No (18) Hypokalemia Status: Acute Current Visit: No Code(s): E87.6 - Hypokalemia (19) Pneumonia Status: Suspected Current Visit: No Code(s): J18.9 - Pneumonia, unspecified organism (20) Tachycardia Status: Acute Current Visit: No Code(s): R00.0 - Tachycardia, unspecified (21) Respiratory failure Status: Acute Current Visit: No Code(s): J96.90 - Respiratory failure, unspecified, unspecified whether with hypoxia or hypercapnia (22) High-grade atrioventricular block Status: Chronic Current Visit: No Code(s): I44.39 - Other atrioventricular block (23) Cardiomyopathy Status: Chronic Current Visit: No Qualifiers: Code(s): I42.9 - Cardiomyopathy, unspecified (24) Dependent on hemodialysis Status: Chronic Current Visit: No Code(s): Z99.2 - Dependence on renal dialysis (25) Hyperkalemia Status: Acute Current Visit: No Code(s): E87.5 - Hyperkalemia (26) Atrial flutter with rapid ventricular response Status: Acute Current Visit: No Code(s): I48.92 - Unspecified atrial flutter (27) Cellulitis Status: Acute Current Visit: Yes Qualifiers: Site of cellulitis of extremity: lower extremity Code(s): L03.90 - Cellulitis, unspecified (28) Hyperkalemia Status: Acute Current Visit: No Code(s): E87.5 - Hyperkalemia (29) 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 Status: Acute Current Visit: No Code(s): L97.929 - Non-pressure chronic ulcer of unspecified part of left lower leg with unspecified severity; E83.59 - Other disorders of calcium metabolism (30) Calciphylaxis Status: Acute Current Visit: No Code(s): E83.59 - Other disorders of calcium metabolism (31) Ulcer of foot Status: Chronic Current Visit: Yes Qualifiers: Laterality: right Non-pressure ulcer stage: with fat layer exposed Qualified Code(s): L97.512 - Non-pressure chronic ulcer of other part of right foot with fat layer exposed Code(s): L97.509 - Non-pressure chronic ulcer of other part of unspecified foot with unspecified severity (32) Supplemental oxygen dependent Status: Chronic Current Visit: No Code(s): Z99.81 - Dependence on supplemental oxygen (33) CHF (congestive heart failure) Status: Chronic Current Visit: No Code(s): I50.9 - Heart failure, unspecified (34) Coronary artery arteriosclerosis Status: Chronic Current Visit: No Code(s): I25.10 - Atherosclerotic heart disease of [place] coronary artery without angina pectoris (35) Parathyroid disease Status: Chronic Current Visit: No Code(s): E21.5 - Disorder of parathyroid gland, unspecified (36) COPD (chronic obstructive pulmonary disease) Status: Chronic Current Visit: No Code(s): J44.9 - Chronic obstructive pulmonary disease, unspecified (37) History of nephrectomy Status: Chronic Current Visit: No Code(s): Z98.890 - Other specified postprocedural states; Z90.5 - Acquired absence of kidney (38) History of kidney cancer Status: Chronic Current Visit: No Code(s): Z85.528 - Personal history of other malignant neoplasm of kidney (39) Chest pain Status: Acute Current Visit: No Qualifiers: Code(s): R07.9 - Chest pain, unspecified History of Present Illness Date of Service: 06/11/17 Chief Complaint: Chronic, nonhealing ulcerations of the right foot with lower extremity swelling and edema History of Wound: This is a 57-year-old male who presented with a four-month history of ulcerations on his right foot. The patient is uncertain as to the etiology of his wounds, but states he has had associated cellulitis, for which he has been previously treated. The location and appearance of his ulcerations are suggestive of pressure phenomenon, likely due to swelling occurring while wearing an unyielding shoe. The patient has multiple medical problems, which are documented elsewhere. These include, but are not limited to, history of congestive heart failure, coronary artery disease, hypertension, chronic obstructive pulmonary disease, shortness of breath with supplimental O2 dependence, prior nephrectomy, end-stage renal failure, parathyroid disease, atrial fibrillation, pulmonary hypertension, anemia of chronic disease, etc. she has recently been treated for a pulmonary infection, and is currently taking doxycycline, as prescribed by his primary care physician, Dr. Conner Lopez. Past Medical History Past Medical History: Chronic Problems ESRD (end stage renal disease) (Chronic) HTN (hypertension) (Chronic) Afib (Chronic) paroxysmal on Eliquis PAF (paroxysmal atrial fibrillation) (Chronic) Pulmonary HTN (Chronic) Anemia with chronic illness (Chronic) Non-compliance (Chronic) non-compliant with meds and with dialysis Non-compliance with renal dialysis (Chronic) Hyperglycemia (Chronic) Bilateral pleural effusion (Chronic) S/p nephrectomy (Chronic) High-grade atrioventricular block (Chronic) Cardiomyopathy (Chronic) Dependent on hemodialysis (Chronic) Ulcer of foot (Chronic) Supplemental oxygen dependent (Chronic) CHF (congestive heart failure) (Chronic) Coronary artery arteriosclerosis (Chronic) Parathyroid disease (Chronic) COPD (chronic obstructive pulmonary disease) (Chronic) History of nephrectomy (Chronic) History of kidney cancer (Chronic) Surgical History: - - AVF placement PAIGE, left nephrectomy for cancer, cardiac defibrillator placement in 2015. Right inguinal hernia repair in the remote past. Allergies/Adverse Reactions: Allergies No Known Allergies Allergy (Verified 05/22/17 15:13) Home Medications: Ambulatory Orders Medication Instructions Recorded Acetaminophen [Tylenol] 1,000 mg PO Q4H PRN PRN 05/17/15 Calcium Acetate [Phoslo Gel Cap] 2 capsule PO TIDCM 05/17/15 Lisinopril [Zestril] 20 mg PO DAILY 05/17/15 Cinacalcet HCl [Sensipar] 30 mg PO DAILY 09/08/15 Omeprazole 20 mg PO BID 02/05/17 Albuterol Sulfate [Ventolin Hfa] 1 puff INHALATION Q4H PRN PRN 05/22/17 Fluocinonide 1 applicatio TOPICAL BID 05/22/17 Folic Acid/Vit Bcomp,C [Renal-Miguel Angel 0.8 mg PO DAILY 05/22/17 Tablet] Hydroxyzine Pamoate 50 mg PO BID 05/22/17 Oxycodone HCl/Acetaminophen 1 tablet PO Q6H PRN PRN 05/22/17 [Percocet 5-325] Clindamycin [Cleocin] 150 mg PO 4X/DAY #28 cap 05/25/17 Metoprolol(XL)Succ [Toprol Xl 100 mg PO BID #60 tab 05/25/17 (Beta Rosemarie)] Warfarin [Coumadin] 4 mg PO DAILY@1700 #15 tab 05/25/17 - Family History Maternal No pertinent history, - - Patient's mother at age of 73 with a history of end-stage renal failure. Paternal Renal Disease, - - The patient's mother at age of 69 with a history of kidney cancer. Smoking Status: Never smoker Tobacco Use: Non-smoker Review of Systems Constitutional: Denies: Chills, Fever, Weight Change Eyes: Denies: Pain, Vision Change HEENT: Denies: Difficulty Hearing, Difficulty Swallowing, Sinus Congestion Cardiovascular: Denies: Chest Pain, Palpitations Respiratory: Denies: Cough, Shortness of Breath Gastrointestinal: Denies: Diarrhea, Nausea, Vomiting Genitourinary: Denies: Dysuria, Hematuria Endocrine: Denies: Heat/ Cold Intolerance, Polydipsia, Polyuria Hematologic/ Lymphatic: Denies: Easy Bruising, Easy Bleeding - Physical Exam Vital Signs Temp Pulse Resp BP 98.2 F 68 18 151/95 H 06/11/17 11:27 06/11/17 11:27 06/11/17 11:27 06/11/17 11:27 General: Alert, Oriented x3, Cooperative, No apparent distress, Well developed, Well nourished HEENT: Atraumatic, PERRLA, EOMI, Normocephalic Oral: Moist Mucosa Neck: No JVD Lungs: Normal air movement, - - The patient is on supplemental oxygen by nasal cannula Abdomen: Non-Distended Extremities: No clubbing, No cyanosis, No Calf Tenderness, - - Mild bilateral lower extremity swelling and edema is noted. Ulceration is noted on the dorsum of the right foot, with a moderate amount of biofilm bioburden, with evidence of nonviable tissue. Dimensions of the ulceration are noted elsewhere. There is surrounding erythema, consistent with a mild cellulitis. There are several other cracks in clefts in both feet, none of which appear to frankly breach the integrity of the dermal layers. Wound Measurements and Assessment WC - Nurse 1 - General Ulcer Measurement Start: 06/11/17 11:26 Freq: Status: Active Protocol: Activity Type Activity Date Activity User E-Sign Co-Sign Detail Recorded Client Recorded Date Recorded By Document 06/11/17 11:27 [facility] [id number] 06/11/17 11:39 [facility] 06/11/17 11:27 Wound Center Nurse 1 [Ulcer Assessment Protocol: WC.WD.LOC] #7- LT LAT FOOT -Combined with other wound No -Current Size (cm) - Length 1.9 -Current Size (cm) - Width 0.2 -Current Size (cm) - Depth 0.1 -Total Square Cm 0.38 -Date of Last Picture (Recall this 06/11/17 field) -Photo Taken Yes -Epithelialization None Present -Tunneling No -Undermining/Tunneling No -Exudate Amt None Present (0 %) -Wound Margin Distinct, Outline Attached -Granulation Amt None Present (0 %) -Slough/Fibrin Yes -Necrosis Amt Large (67-100%) -Necrotic Tissue Type Adherent Slough -Structure Exposed N/A -Texture (Yasmeen-wound Skin Appearance) Callus Scarring -Moisture (Yasmeen-wound Skin Appearance Dry/Scaly ) -Color (Yasmeen-wound Skin Appearance) Assessed -Temperature (Yasmeen-wound Skin No Abnormality Appearance) (Pt Warm) -Tenderness on Palpation (Yasmeen-wound No Skin Appearance) -Ulcer Cleansing Rinsed/ Irrigated with Saline -Foul Odor after Cleansing No -Anesthetic Used 4% Lidocaine Solution #6- LT HEEL -Combined with other wound No -Current Size (cm) - Length 0.3 -Current Size (cm) - Width 1 -Current Size (cm) - Depth 0.1 -Total Square Cm 0.3 -Date of Last Picture (Recall this 06/11/17 field) -Photo Taken Yes -Epithelialization None Present -Tunneling No -Undermining/Tunneling No -Exudate Amt None Present (0 %) -Wound Margin Distinct, Outline Attached -Granulation Amt None Present (0 %) -Slough/Fibrin Yes -Necrosis Amt Large (67-100%) -Necrotic Tissue Type Adherent Slough -Structure Exposed N/A -Texture (Yasmeen-wound Skin Appearance) Callus Scarring -Moisture (Yasmeen-wound Skin Appearance Dry/Scaly ) -Color (Yasmeen-wound Skin Appearance) Assessed -Temperature (Yasmeen-wound Skin No Abnormality Appearance) (Pt Warm) -Tenderness on Palpation (Yasmeen-wound No Skin Appearance) -Ulcer Cleansing Rinsed/ Irrigated with Saline -Foul Odor after Cleansing No -Anesthetic Used 4% Lidocaine Solution #5- LT FOOT PLANTAR ASPECT -Combined with other wound No -Current Size (cm) - Length 0.2 -Current Size (cm) - Width 2.5 -Current Size (cm) - Depth 0.1 -Total Square Cm 0.50 -Date of Last Picture (Recall this 06/11/17 field) -Photo Taken Yes -Epithelialization None Present -Tunneling No -Undermining/Tunneling No -Exudate Amt None Present (0 %) -Wound Margin Distinct, Outline Attached -Granulation Amt None Present (0 %) -Slough/Fibrin Yes -Necrosis Amt Large (67-100%) -Necrotic Tissue Type Adherent Slough -Structure Exposed N/A -Texture (Yasmeen-wound Skin Appearance) Callus -Moisture (Yasmeen-wound Skin Appearance Dry/Scaly ) -Color (Yasmeen-wound Skin Appearance) Assessed -Temperature (Yasmeen-wound Skin No Abnormality Appearance) (Pt Warm) -Tenderness on Palpation (Yasmeen-wound No Skin Appearance) -Ulcer Cleansing Rinsed/ Irrigated with Saline -Foul Odor after Cleansing No -Anesthetic Used 4% Lidocaine Solution #4- LFA CLUSTER -Combined with other wound No -Current Size (cm) - Length 0 -Current Size (cm) - Width 0 -Current Size (cm) - Depth 0 -Total Square Cm 0 -Date of Last Picture (Recall this 06/11/17 field) -Photo Taken Yes -Epithelialization Large 67-100% #3- RT LATERAL FOOT -Combined with other wound No -Current Size (cm) - Length 2.5 -Current Size (cm) - Width 2 -Current Size (cm) - Depth 0.1 -Total Square Cm 5.0 -Photo Taken No -Epithelialization None Present -Tunneling No -Undermining/Tunneling No -Exudate Amt None Present (0 %) -Wound Margin Distinct, Outline Attached -Granulation Amt None Present (0 %) -Slough/Fibrin Yes -Necrosis Amt Large (67-100%) -Necrotic Tissue Type Adherent Slough -Structure Exposed N/A -Texture (Yasmeen-wound Skin Appearance) Scarring -Moisture (Yasmeen-wound Skin Appearance Dry/Scaly ) -Color (Yasmeen-wound Skin Appearance) Assessed -Temperature (Yasmeen-wound Skin No Abnormality Appearance) (Pt Warm) -Tenderness on Palpation (Yasmeen-wound No Skin Appearance) -Ulcer Cleansing Rinsed/ Irrigated with Saline -Foul Odor after Cleansing No -Anesthetic Used 4% Lidocaine Solution #2- RT MEDIAL FOOT -Current Size (cm) - Length 1.3 -Current Size (cm) - Width 1 -Current Size (cm) - Depth 0.1 -Total Square Cm 1.3 -Photo Taken No -Epithelialization None Present -Tunneling No -Undermining/Tunneling No -Exudate Amt None Present (0 %) -Wound Margin Distinct, Outline Attached -Granulation Amt None Present (0 %) -Slough/Fibrin Yes -Necrosis Amt Large (67-100%) -Necrotic Tissue Type Adherent Slough -Structure Exposed N/A -Texture (Yasmeen-wound Skin Appearance) Scarring -Moisture (Yasmeen-wound Skin Appearance Dry/Scaly ) -Color (Yasmeen-wound Skin Appearance) Assessed -Temperature (Yasmeen-wound Skin No Abnormality Appearance) (Pt Warm) -Tenderness on Palpation (Yasmeen-wound No Skin Appearance) -Ulcer Cleansing Rinsed/ Irrigated with Saline -Foul Odor after Cleansing No -Anesthetic Used 4% Lidocaine Solution #1- RT ANTERIOR FOOT CLUSTER -Combined with other wound No -Current Size (cm) - Length 2.5 -Current Size (cm) - Width 3.2 -Current Size (cm) - Depth 0.1 -Total Square Cm 8.00 -Photo Taken No -Epithelialization None Present -Tunneling No -Undermining/Tunneling No -Exudate Amt None Present (0 %) -Wound Margin Distinct, Outline Attached -Granulation Amt None Present (0 %) -Slough/Fibrin Yes -Necrosis Amt Large (67-100%) -Necrotic Tissue Type Adherent Slough -Structure Exposed N/A -Texture (Yasmeen-wound Skin Appearance) Scarring -Moisture (Yasmeen-wound Skin Appearance Dry/Scaly ) -Color (Yasmeen-wound Skin Appearance) Assessed -Temperature (Yasmeen-wound Skin No Abnormality Appearance) (Pt Warm) -Tenderness on Palpation (Yasmeen-wound No Skin Appearance) -Ulcer Cleansing Rinsed/ Irrigated with Saline -Foul Odor after Cleansing No -Anesthetic Used 4% Lidocaine Solution Neurological: Cranial nerves II-XII grossly intact, Neuro grossly intact Psych/Mental Status: Normal Affect, Appropriate, Alert and oriented to time, place, person, mood and affect Debridement Note Laterality: Right - Dorsal foot Type of Debridement: Excisional debridement Anesthesia Used: 4% Lidocaine Solution Depth: Down to and including healthy tissue, in the subcutaneous layer Percentage of wound debrided: 100 Instrument Used: 5mm curette Severity: Fat Layer Exposed Amount of bleeding with debridement: Mild Bleeding Controlled with: Compression and gauze Patient tolerated procedure well Assessment/Plan Active Problems ESRD (end stage renal disease) (Chronic) Non-compliance (Chronic) non-compliant with meds and with dialysis Cellulitis (Acute) Ulcer of foot (Chronic) Assessment: This is a 57-year-old male with multiple medical problems, which have been documented herein. He presents with wounds on his right foot, highly suspicious for pressure phenomenon likely due to swelling in the right foot while wearing unyielding footwear. Patient has undergone a battery of laboratory tests results as follows: White blood count 16.5, hemoglobin 10.5, hematocrit 32.7, platelets 230,000, sodium 134, potassium 7.0, BUN 86, creatinine 8.8, glucose 105, calcium 8.3, magnesium 2.8, AST 11, ALT 30, alkaline phosphatase 92, total protein 5.9, albumin 2.1. Plan: Patient has been encouraged to optimize his nutritional intake. He is to collaborate with his leakage tester in this regard to determine how best to achieve this objective. It is noted that he is relatively immobile and inactive, often spending long hours each day and idle sitting position. Furthermore, he sleeps in a recliner. He has been advised to elevate his lower extremities as much as possible. Elevation is to be to heart level or higher. He is to avoid idle sitting and standing. Activity has been encouraged. Ultimately, compression to the lower extremities may be considered. We have obtained a noninvasive lower extremity arterial study, which reveals no evidence of significant arterial occlusive disease, but evidence of arterial calcification within the arterial tree bilaterally. Recent culture was positive for Staphylococcus aureus, and the patient's current course of doxycycline appears appropriate to the organism identified. He is currently on doxycycline for a pulmonary infection. We are to continue the use of collagenase Santyl topically on the dorsum of the right foot. Collagen hydrogel will be used topically on the other sites of the right foot, which are not frankly ulcerations. It is acknowledged that the patient may have difficulty in elevating his legs, as he states I cannot lie flat because of my heart. Thus far, the patient claims to have been relatively compliant with recommendations for leg elevation. Patient is to follow-up in 1 week for reassessment. Influenza vaccine was not administered today. The patient is not a smoker. He stands 5 feet 8 inches in height, and weighs 135 pounds. His BMI is 20.5, which is normal.
[2017-06-18 11:09] VITALS: BP 109/58; PULSE 66; RESP 18; TEMP 37.2; BMI 20.5
--- NOTE | 2017-06-18 11:38 | PCM.WC.HP ---
(1) ESRD (end stage renal disease) Status: Chronic Current Visit: Yes Code(s): N18.6 - End stage renal disease (2) HTN (hypertension) Status: Chronic Current Visit: No Qualifiers: Code(s): I10 - Essential (primary) hypertension (3) Afib Status: Chronic Current Visit: No Qualifiers: Code(s): I48.91 - Unspecified atrial fibrillation Comment: paroxysmal on Eliquis (4) PAF (paroxysmal atrial fibrillation) Status: Chronic Current Visit: No Code(s): I48.0 - Paroxysmal atrial fibrillation (5) Pulmonary HTN Status: Chronic Current Visit: No Code(s): I27.2 - Other secondary pulmonary hypertension (6) Anemia with chronic illness Status: Chronic Current Visit: No Code(s): D63.8 - Anemia in other chronic diseases classified elsewhere (7) Non-compliance Status: Chronic Current Visit: Yes Code(s): Z91.19 - Patient's noncompliance with other medical treatment and regimen Comment: non-compliant with meds and with dialysis (8) Non-compliance with renal dialysis Status: Chronic Current Visit: No Code(s): Z91.15 - Patient's noncompliance with renal dialysis (9) HCAP (healthcare-associated pneumonia) Status: Acute Current Visit: No Code(s): J18.9 - Pneumonia, unspecified organism (10) Hypoxia Status: Chronic Current Visit: No Code(s): R09.02 - Hypoxemia (11) Respiratory failure with hypoxia Status: Chronic Current Visit: No Code(s): J96.91 - Respiratory failure, unspecified with hypoxia (12) Encounter for hemodialysis for end-stage renal disease Status: Chronic Current Visit: No Code(s): N18.6 - End stage renal disease; Z99.2 - Dependence on renal dialysis (13) Hyperglycemia Status: Chronic Current Visit: Yes Code(s): R73.9 - Hyperglycemia, unspecified (14) Bilateral pleural effusion Status: Chronic Current Visit: No Code(s): J90 - Pleural effusion, not elsewhere classified (15) Fluid overload Status: Acute Current Visit: No Code(s): E87.70 - Fluid overload, unspecified (16) S/p nephrectomy Status: Chronic Current Visit: No Code(s): Z90.5 - Acquired absence of kidney (17) Colitis Status: Acute Current Visit: No (18) Hypokalemia Status: Acute Current Visit: No Code(s): E87.6 - Hypokalemia (19) Pneumonia Status: Suspected Current Visit: No Code(s): J18.9 - Pneumonia, unspecified organism (20) Tachycardia Status: Acute Current Visit: No Code(s): R00.0 - Tachycardia, unspecified (21) Respiratory failure Status: Acute Current Visit: No Code(s): J96.90 - Respiratory failure, unspecified, unspecified whether with hypoxia or hypercapnia (22) High-grade atrioventricular block Status: Chronic Current Visit: No Code(s): I44.39 - Other atrioventricular block (23) Cardiomyopathy Status: Chronic Current Visit: No Qualifiers: Code(s): I42.9 - Cardiomyopathy, unspecified (24) Dependent on hemodialysis Status: Chronic Current Visit: No Code(s): Z99.2 - Dependence on renal dialysis (25) Hyperkalemia Status: Acute Current Visit: No Code(s): E87.5 - Hyperkalemia (26) Atrial flutter with rapid ventricular response Status: Acute Current Visit: No Code(s): I48.92 - Unspecified atrial flutter (27) Cellulitis Status: Acute Current Visit: Yes Qualifiers: Site of cellulitis of extremity: lower extremity Laterality: right Code(s): L03.90 - Cellulitis, unspecified (28) Hyperkalemia Status: Acute Current Visit: No Code(s): E87.5 - Hyperkalemia (29) 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 Status: Acute Current Visit: No Code(s): L97.929 - Non-pressure chronic ulcer of unspecified part of left lower leg with unspecified severity; E83.59 - Other disorders of calcium metabolism (30) Calciphylaxis Status: Acute Current Visit: No Code(s): E83.59 - Other disorders of calcium metabolism (31) Ulcer of foot Status: Chronic Current Visit: Yes Qualifiers: Laterality: right Non-pressure ulcer stage: with fat layer exposed Qualified Code(s): L97.512 - Non-pressure chronic ulcer of other part of right foot with fat layer exposed Code(s): L97.509 - Non-pressure chronic ulcer of other part of unspecified foot with unspecified severity (32) Supplemental oxygen dependent Status: Chronic Current Visit: No Code(s): Z99.81 - Dependence on supplemental oxygen (33) CHF (congestive heart failure) Status: Chronic Current Visit: No Code(s): I50.9 - Heart failure, unspecified (34) Coronary artery arteriosclerosis Status: Chronic Current Visit: No Code(s): I25.10 - Atherosclerotic heart disease of [place] coronary artery without angina pectoris (35) Parathyroid disease Status: Chronic Current Visit: No Code(s): E21.5 - Disorder of parathyroid gland, unspecified (36) COPD (chronic obstructive pulmonary disease) Status: Chronic Current Visit: No Code(s): J44.9 - Chronic obstructive pulmonary disease, unspecified (37) History of nephrectomy Status: Chronic Current Visit: No Code(s): Z98.890 - Other specified postprocedural states; Z90.5 - Acquired absence of kidney (38) History of kidney cancer Status: Chronic Current Visit: No Code(s): Z85.528 - Personal history of other malignant neoplasm of kidney (39) Chest pain Status: Chronic Current Visit: No Qualifiers: Code(s): R07.9 - Chest pain, unspecified History of Present Illness Date of Service: 06/18/17 Chief Complaint: Chronic, nonhealing ulcerations of the right foot with lower extremity swelling and edema History of Wound: This is a 57-year-old male who presented with a four-month history of ulcerations on his right foot. The patient is uncertain as to the etiology of his wounds, but states he has had associated cellulitis, for which he has been previously treated. The location and appearance of his ulcerations are suggestive of pressure phenomenon, likely due to swelling occurring while wearing an unyielding shoe. The patient has multiple medical problems, which are documented elsewhere. These include, but are not limited to, history of congestive heart failure, coronary artery disease, hypertension, chronic obstructive pulmonary disease, shortness of breath with supplimental O2 dependence, prior nephrectomy, end-stage renal failure, parathyroid disease, atrial fibrillation, pulmonary hypertension, anemia of chronic disease, etc. He has recently been treated for a pulmonary infection, and is currently taking doxycycline, as prescribed by his primary care physician, Dr. Conner Lopez. Since the patient's initial visit, we have implemented the use of collagenase Santyl topically on the larger of the patient's ulcerations on the dorsum of his right foot. The other ulcerations are minor, and are currently being treated with collagen hydrogel topically on a daily basis. Past Medical History Past Medical History: Chronic Problems ESRD (end stage renal disease) (Chronic) HTN (hypertension) (Chronic) Afib (Chronic) paroxysmal on Eliquis PAF (paroxysmal atrial fibrillation) (Chronic) Pulmonary HTN (Chronic) Anemia with chronic illness (Chronic) Non-compliance (Chronic) non-compliant with meds and with dialysis Non-compliance with renal dialysis (Chronic) Hypoxia (Chronic) Respiratory failure with hypoxia (Chronic) Encounter for hemodialysis for end-stage renal disease (Chronic) Hyperglycemia (Chronic) Bilateral pleural effusion (Chronic) S/p nephrectomy (Chronic) High-grade atrioventricular block (Chronic) Cardiomyopathy (Chronic) Dependent on hemodialysis (Chronic) Ulcer of foot (Chronic) Supplemental oxygen dependent (Chronic) CHF (congestive heart failure) (Chronic) Coronary artery arteriosclerosis (Chronic) Parathyroid disease (Chronic) COPD (chronic obstructive pulmonary disease) (Chronic) History of nephrectomy (Chronic) History of kidney cancer (Chronic) Chest pain (Chronic) Surgical History: - - AVF placement PAIGE, left nephrectomy for cancer, cardiac defibrillator placement in 2015. Right inguinal hernia repair in the remote past. Allergies/Adverse Reactions: Allergies No Known Allergies Allergy (Verified 05/22/17 15:13) Home Medications: Ambulatory Orders Medication Instructions Recorded Acetaminophen [Tylenol] 1,000 mg PO Q4H PRN PRN 05/17/15 Calcium Acetate [Phoslo Gel Cap] 2 capsule PO TIDCM 05/17/15 Lisinopril [Zestril] 20 mg PO DAILY 05/17/15 Cinacalcet HCl [Sensipar] 30 mg PO DAILY 09/08/15 Omeprazole 20 mg PO BID 02/05/17 Albuterol Sulfate [Ventolin Hfa] 1 puff INHALATION Q4H PRN PRN 05/22/17 Fluocinonide 1 applicatio TOPICAL BID 05/22/17 Folic Acid/Vit Bcomp,C [Renal-Miguel Angel 0.8 mg PO DAILY 05/22/17 Tablet] Hydroxyzine Pamoate 50 mg PO BID 05/22/17 Oxycodone HCl/Acetaminophen 1 tablet PO Q6H PRN PRN 05/22/17 [Percocet 5-325] Clindamycin [Cleocin] 150 mg PO 4X/DAY #28 cap 05/25/17 Metoprolol(XL)Succ [Toprol Xl 100 mg PO BID #60 tab 05/25/17 (Beta Rosemarie)] Warfarin [Coumadin] 4 mg PO DAILY@1700 #15 tab 05/25/17 - Family History Maternal No pertinent history, - - Patient's mother at age of 73 with a history of end-stage renal failure. Paternal Renal Disease, - - The patient's mother at age of 69 with a history of kidney cancer. Smoking Status: Never smoker Tobacco Use: Non-smoker Review of Systems Constitutional: Denies: Chills, Fever, Weight Change Eyes: Denies: Pain, Vision Change HEENT: Denies: Difficulty Hearing, Difficulty Swallowing, Sinus Congestion Cardiovascular: Denies: Chest Pain, Palpitations Respiratory: Denies: Cough, Shortness of Breath Gastrointestinal: Denies: Diarrhea, Nausea, Vomiting Genitourinary: Denies: Dysuria, Hematuria Endocrine: Denies: Heat/ Cold Intolerance, Polydipsia, Polyuria Hematologic/ Lymphatic: Denies: Easy Bruising, Easy Bleeding - Physical Exam Vital Signs Temp Pulse Resp BP 98.9 F 66 18 109/58 L 06/18/17 11:09 06/18/17 11:09 06/18/17 11:09 06/18/17 11:09 General: Alert, Oriented x3, Cooperative, No apparent distress, Well developed, Well nourished HEENT: Atraumatic, PERRLA, EOMI, Normocephalic Oral: Moist Mucosa Neck: No JVD Lungs: Normal air movement Abdomen: Non-Distended Extremities: No clubbing, No cyanosis, No Calf Tenderness, - - Mild to moderate swelling and edema is noted in the right lower extremity. The only significant ulceration in the right lower extremity is that on the dorsum of the right foot. Dimensions are documented elsewhere. There is moderate amount of biofilm, bioburden, and nonviable tissue present. There is no obvious sign of infection or cellulitis at this time. Skin: No rashes Wound Measurements and Assessment WC - Nurse 1 - General Ulcer Measurement Start: 06/11/17 11:26 Freq: Status: Active Protocol: Activity Type Activity Date Activity User E-Sign Co-Sign Detail Recorded Client Recorded Date Recorded By Document 06/18/17 11:09 [facility] [id number] 06/18/17 11:27 [facility] 06/18/17 11:09 Wound Center Nurse 1 [Ulcer Assessment Protocol: WC.WD.LOC] #7- LT LAT FOOT -Combined with other wound No -Current Size (cm) - Length 2 -Current Size (cm) - Width 0.1 -Current Size (cm) - Depth 0.1 -Total Square Cm 0.2 -Photo Taken No -Epithelialization None Present -Tunneling No -Undermining/Tunneling No -Exudate Amt None Present (0 %) -Granulation Amt None Present (0 %) -Slough/Fibrin Yes -Necrosis Amt Large (67-100%) -Necrotic Tissue Type Adherent Slough -Structure Exposed N/A -Texture (Yasmeen-wound Skin Appearance) Callus -Moisture (Yasmeen-wound Skin Appearance Dry/Scaly ) -Color (Yasmeen-wound Skin Appearance) Assessed -Temperature (Yasmeen-wound Skin No Abnormality Appearance) (Pt Warm) -Tenderness on Palpation (Yasmeen-wound Yes Skin Appearance) -Ulcer Cleansing Rinsed/ Irrigated with Saline -Foul Odor after Cleansing No -Anesthetic Used 5% Lidocaine Gel #6- LT HEEL -Combined with other wound No -Current Size (cm) - Length 1.3 -Current Size (cm) - Width 0.1 -Current Size (cm) - Depth 0.1 -Total Square Cm 0.13 -Photo Taken No -Epithelialization None Present -Tunneling No -Undermining/Tunneling No -Exudate Amt None Present (0 %) -Wound Margin Distinct, Outline Attached -Granulation Amt None Present (0 %) -Slough/Fibrin Yes -Necrosis Amt Large (67-100%) -Necrotic Tissue Type Adherent Slough -Structure Exposed N/A -Texture (Yasmeen-wound Skin Appearance) Callus Scarring -Moisture (Yasmeen-wound Skin Appearance Dry/Scaly ) -Color (Yasmeen-wound Skin Appearance) Assessed -Temperature (Yasmeen-wound Skin No Abnormality Appearance) (Pt Warm) -Tenderness on Palpation (Yasmeen-wound Yes Skin Appearance) -Ulcer Cleansing Rinsed/ Irrigated with Saline -Foul Odor after Cleansing No -Anesthetic Used 5% Lidocaine Gel #5- LT FOOT PLANTAR ASPECT -Combined with other wound No -Current Size (cm) - Length 0 -Current Size (cm) - Width 0 -Current Size (cm) - Depth 0 -Total Square Cm 0 -Date of Last Picture (Recall this 06/18/17 field) -Photo Taken Yes -Epithelialization Large 67-100% #3- RT LATERAL FOOT -Combined with other wound No -Current Size (cm) - Length 2.3 -Current Size (cm) - Width 1.7 -Current Size (cm) - Depth 0.2 -Total Square Cm 3.91 -Photo Taken No -Epithelialization None Present -Tunneling No -Undermining/Tunneling No -Exudate Amt Small (1-33%) -Exudate Type Serosanguineous -Wound Margin Distinct, Outline Attached -Granulation Amt Small (1-33%) -Granulation Quality [place] -Slough/Fibrin Yes -Necrosis Amt Large (67-100%) -Necrotic Tissue Type Adherent Slough -Structure Exposed N/A -Texture (Yasmeen-wound Skin Appearance) Callus Scarring -Moisture (Yasmeen-wound Skin Appearance Dry/Scaly ) -Color (Yasmeen-wound Skin Appearance) No Abnormality -Temperature (Yasmeen-wound Skin No Abnormality Appearance) (Pt Warm) -Tenderness on Palpation (Yasmeen-wound No Skin Appearance) -Ulcer Cleansing Rinsed/ Irrigated with Saline -Foul Odor after Cleansing No -Anesthetic Used 5% Lidocaine Gel #2- RT MEDIAL FOOT -Combined with other wound No -Current Size (cm) - Length 1.2 -Current Size (cm) - Width 0.2 -Current Size (cm) - Depth 0.1 -Total Square Cm 0.24 -Photo Taken No -Epithelialization None Present -Tunneling No -Undermining/Tunneling No -Exudate Amt Small (1-33%) -Exudate Type Serosanguineous -Wound Margin Distinct, Outline Attached -Granulation Amt None Present (0 %) -Slough/Fibrin Yes -Necrosis Amt Large (67-100%) -Necrotic Tissue Type Adherent Slough -Structure Exposed N/A -Texture (Ysameen-wound Skin Appearance) Assessed -Moisture (Yasmeen-wound Skin Appearance Dry/Scaly ) -Color (Yasmeen-wound Skin Appearance) Assessed -Temperature (Yasmeen-wound Skin No Abnormality Appearance) (Pt Warm) -Tenderness on Palpation (Yasmeen-wound Yes Skin Appearance) -Ulcer Cleansing Rinsed/ Irrigated with Saline -Foul Odor after Cleansing No -Anesthetic Used 5% Lidocaine Gel #1- RT ANTERIOR FOOT CLUSTER -Combined with other wound No -Current Size (cm) - Length 2.8 -Current Size (cm) - Width 3.2 -Current Size (cm) - Depth 0.1 -Total Square Cm 8.96 -Photo Taken No -Tunneling No -Undermining/Tunneling No -Exudate Amt Small (1-33%) -Exudate Type Serosanguineous -Wound Margin Distinct, Outline Attached -Granulation Amt None Present (0 %) -Slough/Fibrin Yes -Necrosis Amt Large (67-100%) -Necrotic Tissue Type Adherent Slough -Structure Exposed N/A -Texture (Yasmeen-wound Skin Appearance) Scarring -Moisture (Yasmeen-wound Skin Appearance Dry/Scaly ) -Color (Yasmeen-wound Skin Appearance) Assessed -Temperature (Yasmeen-wound Skin No Abnormality Appearance) (Pt Warm) -Tenderness on Palpation (Yasmeen-wound No Skin Appearance) -Ulcer Cleansing Rinsed/ Irrigated with Saline -Foul Odor after Cleansing No -Anesthetic Used 5% Lidocaine Gel Neurological: Cranial nerves II-XII grossly intact, Neuro grossly intact Psych/Mental Status: Normal Affect, Appropriate, Alert and oriented to time, place, person, mood and affect Debridement Note Post-Debridement Measurements/Treatment WC - Nurse 2 - General Ulcer CM Notes Start: 06/11/17 11:26 Freq: Status: Active Protocol: Activity Type Activity Date Activity User E-Sign Co-Sign Detail Recorded Client Recorded Date Recorded By Document 06/11/17 12:25 ROS [id number] 06/11/17 13:42 ROS 06/11/17 12:25 Wound Center Nurse 2 #7- LT LAT FOOT -Time 12:15 -Correct Patient Yes -Correct Side, Site, Position Yes -Correct Procedure Yes -Procedure Performed No -Wound/Ulcer Outcome Not Healed -Ulcer Cleansing Rinsed/ Irrigated with Saline -Foul Odor after Cleansing No -Bioengineered Tissue No -Cetacaine [place] No -Topical Lidocaine (%) 4 -Lidocaine (ml) 5 -Bleeding Controlled with NA #6- LT HEEL -Time 12:15 -Correct Patient Yes -Correct Side, Site, Position Yes -Correct Procedure Yes -Procedure Performed No -Wound/Ulcer Outcome Not Healed -Ulcer Cleansing Rinsed/ Irrigated with Saline -Foul Odor after Cleansing No -Bioengineered Tissue No -Cetacaine [place] No -Topical Lidocaine (%) 4 -Lidocaine (ml) 5 -Bleeding Controlled with NA #5- LT FOOT PLANTAR ASPECT -Time 12:15 -Correct Patient Yes -Correct Side, Site, Position Yes -Correct Procedure Yes -Procedure Performed No -Wound/Ulcer Outcome Not Healed -Ulcer Cleansing Rinsed/ Irrigated with Saline -Foul Odor after Cleansing No -Bioengineered Tissue No -Cetacaine [place] No -Topical Lidocaine (%) 4 -Lidocaine (ml) 5 -Bleeding Controlled with NA #3- RT LATERAL FOOT -Time 12:15 -Correct Patient Yes -Correct Side, Site, Position Yes -Correct Procedure Yes -Procedure Performed No -Wound/Ulcer Outcome Not Healed -Ulcer Cleansing Rinsed/ Irrigated with Saline -Foul Odor after Cleansing No -Bioengineered Tissue No -Cetacaine [place] No -Topical Lidocaine (%) 4 -Lidocaine (ml) 5 -Bleeding Controlled with NA #2- RT MEDIAL FOOT -Time 12:15 -Correct Patient Yes -Correct Side, Site, Position Yes -Correct Procedure Yes -Procedure Performed No -Wound/Ulcer Outcome Not Healed -Ulcer Cleansing Rinsed/ Irrigated with Saline -Foul Odor after Cleansing No -Bioengineered Tissue No -Cetacaine [place] No -Topical Lidocaine (%) 4 -Lidocaine (ml) 5 -Bleeding Controlled with NA #1- RT ANTERIOR FOOT CLUSTER -Time 12:15 -Correct Patient Yes -Correct Side, Site, Position Yes -Correct Procedure Yes -Procedure Performed Yes -Type of Procedure Debridement -Clinical Debridement Subcutaneous -Post Debridement Size (cm) - Length 2.5 -Post Debridement Size (cm) - Width 3.2 -Post Debridement Size (cm) - Depth 0.1 -Total Square Cm 8.00 -Wound/Ulcer Outcome Not Healed -Ulcer Cleansing Rinsed/ Irrigated with Saline -Foul Odor after Cleansing No -Bioengineered Tissue No -Cetacaine [place] No -Topical Lidocaine (%) 4 -Lidocaine (ml) 5 -Bleeding Controlled with NA -Treatment Response Procedure Not Tolerated Well Pain Scale: 0-10 Numeric Is Patient Pain Free? Yes Laterality: Right - Dorsal foot Type of Debridement: Excisional debridement Anesthesia Used: 4% Lidocaine Solution Depth: Down to and including healthy tissue, in the subcutaneous layer Percentage of wound debrided: 100 Instrument Used: 5mm curette Severity: Fat Layer Exposed Amount of bleeding with debridement: Mild Bleeding Controlled with: Compression and gauze Patient did not tolerate procedure well The patient did not tolerate the excisional debridement well, complaining of discomfort during the process. Assessment/Plan Active Problems ESRD (end stage renal disease) (Chronic) Non-compliance (Chronic) non-compliant with meds and with dialysis Hyperglycemia (Chronic) Cellulitis (Acute) Ulcer of foot (Chronic) Assessment: This is a 57-year-old male with multiple, severe medical problems, which have been documented herein. He presents with wounds on his right foot, highly suspicious for pressure phenomenon likely due to swelling in the right foot while wearing unyielding footwear. The patient has undergone a battery of laboratory tests, with results as follows: White blood count 16.5, hemoglobin 10.5, hematocrit 32.7, platelets 230,000, sodium 134, potassium 7.0, BUN 86, creatinine 8.8, glucose 105, calcium 8.3, magnesium 2.8, AST 11, ALT 30, alkaline phosphatase 92, total protein 5.9, albumin 2.1. A culture result from 05/23/2017 was positive for Staphylococcus aureus, which appears sensitive to doxycycline, which the patient is currently taking with respect to his pulmonary infection. Therefore, the patient's noninvasive lower extremity arterial study reveals triphasic waveforms at ankle level bilaterally. Ankle-brachial indices and digital-brachial indices are either normal or supranormal bilaterally. Plan: Patient has been encouraged to optimize his nutritional intake. He is to collaborate with his gas prover in this regard to determine how best to achieve this objective. It is noted that he is relatively immobile and inactive, often spending long hours each day and idle sitting position. Furthermore, he sleeps in a recliner. He has been advised to elevate his lower extremities as much as possible. Elevation is to be to heart level or higher. He is to avoid idle sitting and standing. Activity has been encouraged. We are to initiate compression to the right lower extremity by means of SurePress, to be applied on a daily basis. We have obtained a noninvasive lower extremity arterial study, which reveals no evidence of significant arterial occlusive disease, but evidence of arterial calcification within the arterial tree bilaterally. Recent culture was positive for Staphylococcus aureus, and the patient's current course of doxycycline appears appropriate to the organism identified. He is currently on doxycycline for a pulmonary infection. We are to continue the use of collagenase Santyl topically on the dorsum of the right foot. Collagen hydrogel will be used topically on the other sites of the right foot, which are not frankly ulcerations. It is acknowledged that the patient may have difficulty in elevating his legs, as he states I cannot lie flat because of my heart. Thus far, the patient claims to have been relatively compliant with recommendations for leg elevation. Patient is to follow-up in 1 week for reassessment. We are to attempt to arrange an appointment at [facility] for the fitting of appropriate shoes/foot wear. It appears as though the patient's current ulceration due to ill-fitted footwear, with pressure phenomenon which likely occurred due to swelling of the patient's right foot. Influenza vaccine was not administered today. The patient is not a smoker. He stands 5 feet 8 inches in height, and weighs 135 pounds. His BMI is 20.5, which is normal.
[2017-06-25 11:59] VITALS: BP 154/90; PULSE 73; RESP 16; TEMP 36.6; BMI 20.5
--- NOTE | 2017-06-25 12:30 | HP.PCM_ITS ---
(1) ESRD (end stage renal disease) Status: Chronic Current Visit: Yes Code(s): N18.6 - End stage renal disease (2) HTN (hypertension) Status: Chronic Current Visit: No Qualifiers: Code(s): I10 - Essential (primary) hypertension (3) Afib Status: Chronic Current Visit: No Qualifiers: Code(s): I48.91 - Unspecified atrial fibrillation Comment: paroxysmal on Eliquis (4) PAF (paroxysmal atrial fibrillation) Status: Chronic Current Visit: No Code(s): I48.0 - Paroxysmal atrial fibrillation (5) Pulmonary HTN Status: Chronic Current Visit: No Code(s): I27.2 - Other secondary pulmonary hypertension (6) Anemia with chronic illness Status: Chronic Current Visit: No Code(s): D63.8 - Anemia in other chronic diseases classified elsewhere (7) Non-compliance Status: Chronic Current Visit: Yes Code(s): Z91.19 - Patient's noncompliance with other medical treatment and regimen Comment: non-compliant with meds and with dialysis (8) Non-compliance with renal dialysis Status: Chronic Current Visit: No Code(s): Z91.15 - Patient's noncompliance with renal dialysis (9) HCAP (healthcare-associated pneumonia) Status: Acute Current Visit: No Code(s): J18.9 - Pneumonia, unspecified organism (10) Hypoxia Status: Chronic Current Visit: No Code(s): R09.02 - Hypoxemia (11) Respiratory failure with hypoxia Status: Chronic Current Visit: No Code(s): J96.91 - Respiratory failure, unspecified with hypoxia (12) Encounter for hemodialysis for end-stage renal disease Status: Chronic Current Visit: No Code(s): N18.6 - End stage renal disease; Z99.2 - Dependence on renal dialysis (13) Hyperglycemia Status: Chronic Current Visit: Yes Code(s): R73.9 - Hyperglycemia, unspecified (14) Bilateral pleural effusion Status: Chronic Current Visit: No Code(s): J90 - Pleural effusion, not elsewhere classified (15) Fluid overload Status: Acute Current Visit: No Code(s): E87.70 - Fluid overload, unspecified (16) S/p nephrectomy Status: Chronic Current Visit: No Code(s): Z90.5 - Acquired absence of kidney (17) Colitis Status: Acute Current Visit: No (18) Hypokalemia Status: Acute Current Visit: No Code(s): E87.6 - Hypokalemia (19) Pneumonia Status: Suspected Current Visit: No Code(s): J18.9 - Pneumonia, unspecified organism (20) Tachycardia Status: Acute Current Visit: No Code(s): R00.0 - Tachycardia, unspecified (21) Respiratory failure Status: Acute Current Visit: No Code(s): J96.90 - Respiratory failure, unspecified, unspecified whether with hypoxia or hypercapnia (22) High-grade atrioventricular block Status: Chronic Current Visit: No Code(s): I44.39 - Other atrioventricular block (23) Cardiomyopathy Status: Chronic Current Visit: No Qualifiers: Code(s): I42.9 - Cardiomyopathy, unspecified (24) Dependent on hemodialysis Status: Chronic Current Visit: No Code(s): Z99.2 - Dependence on renal dialysis (25) Hyperkalemia Status: Acute Current Visit: No Code(s): E87.5 - Hyperkalemia (26) Atrial flutter with rapid ventricular response Status: Acute Current Visit: No Code(s): I48.92 - Unspecified atrial flutter (27) Cellulitis Status: Resolved Current Visit: No Qualifiers: Site of cellulitis of extremity: lower extremity Laterality: right Code(s): L03.90 - Cellulitis, unspecified (28) Hyperkalemia Status: Acute Current Visit: No Code(s): E87.5 - Hyperkalemia (29) 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 Status: Acute Current Visit: No Code(s): L97.929 - Non-pressure chronic ulcer of unspecified part of left lower leg with unspecified severity; E83.59 - Other disorders of calcium metabolism (30) Calciphylaxis Status: Acute Current Visit: No Code(s): E83.59 - Other disorders of calcium metabolism (31) Ulcer of foot Status: Chronic Current Visit: Yes Qualifiers: Laterality: right Non-pressure ulcer stage: with fat layer exposed Qualified Code(s): L97.512 - Non-pressure chronic ulcer of other part of right foot with fat layer exposed Code(s): L97.509 - Non-pressure chronic ulcer of other part of unspecified foot with unspecified severity (32) Supplemental oxygen dependent Status: Chronic Current Visit: No Code(s): Z99.81 - Dependence on supplemental oxygen (33) CHF (congestive heart failure) Status: Chronic Current Visit: No Code(s): I50.9 - Heart failure, unspecified (34) Coronary artery arteriosclerosis Status: Chronic Current Visit: No Code(s): I25.10 - Atherosclerotic heart disease of [place] coronary artery without angina pectoris (35) Parathyroid disease Status: Chronic Current Visit: No Code(s): E21.5 - Disorder of parathyroid gland, unspecified (36) COPD (chronic obstructive pulmonary disease) Status: Chronic Current Visit: No Code(s): J44.9 - Chronic obstructive pulmonary disease, unspecified (37) History of nephrectomy Status: Chronic Current Visit: No Code(s): Z98.890 - Other specified postprocedural states; Z90.5 - Acquired absence of kidney (38) History of kidney cancer Status: Chronic Current Visit: No Code(s): Z85.528 - Personal history of other malignant neoplasm of kidney (39) Chest pain Status: Chronic Current Visit: No Qualifiers: Code(s): R07.9 - Chest pain, unspecified History of Present Illness Date of Service: 06/25/17 Chief Complaint: Chronic, nonhealing ulcerations of the right foot with lower extremity swelling and edema History of Wound: This is a 57-year-old male who presented with a four-month history of ulcerations on his right foot. The patient is uncertain as to the etiology of his wounds, but states he has had associated cellulitis, for which he has been previously treated. The location and appearance of his ulcerations are suggestive of pressure phenomenon, likely due to swelling occurring while wearing an unyielding shoe. The patient has multiple medical problems, which are documented elsewhere. These include, but are not limited to, history of congestive heart failure, coronary artery disease, hypertension, chronic obstructive pulmonary disease, shortness of breath with supplimental O2 dependence, prior nephrectomy, end-stage renal failure, parathyroid disease, atrial fibrillation, pulmonary hypertension, anemia of chronic disease, etc. He has recently been treated for a pulmonary infection, and was treated with doxycycline, as prescribed by his primary care physician, Dr. Conner Lopez. Since the patient's initial visit, we implemented the use of collagenase Santyl topically on the larger of the patient's ulcerations on the dorsum of his right foot. The other ulcerations are minor, and are currently being treated with collagen hydrogel topically on a daily basis. The patient presents today for his appointment 45 minutes late. He arrives with no dressing in place on the right foot wounds, and indicates that it has been several days since he applied the recommended dressings. It appears as though he has not been using his compression wraps as recommended. Furthermore, he did not follow-up with his planned appointment with [facility] for fitting of an offloading shoe. Past Medical History Past Medical History: Chronic Problems ESRD (end stage renal disease) (Chronic) HTN (hypertension) (Chronic) Afib (Chronic) paroxysmal on Eliquis PAF (paroxysmal atrial fibrillation) (Chronic) Pulmonary HTN (Chronic) Anemia with chronic illness (Chronic) Non-compliance (Chronic) non-compliant with meds and with dialysis Non-compliance with renal dialysis (Chronic) Hypoxia (Chronic) Respiratory failure with hypoxia (Chronic) Encounter for hemodialysis for end-stage renal disease (Chronic) Hyperglycemia (Chronic) Bilateral pleural effusion (Chronic) S/p nephrectomy (Chronic) High-grade atrioventricular block (Chronic) Cardiomyopathy (Chronic) Dependent on hemodialysis (Chronic) Ulcer of foot (Chronic) Supplemental oxygen dependent (Chronic) CHF (congestive heart failure) (Chronic) Coronary artery arteriosclerosis (Chronic) Parathyroid disease (Chronic) COPD (chronic obstructive pulmonary disease) (Chronic) History of nephrectomy (Chronic) History of kidney cancer (Chronic) Chest pain (Chronic) Surgical History: - - AVF placement PAIGE, left nephrectomy for cancer, cardiac defibrillator placement in 2015. Right inguinal hernia repair in the remote past. Allergies/Adverse Reactions: Allergies disopyramide [From Norpace] Adverse Reaction (Severe, Verified 06/20/17 12:28) Unknown onion Adverse Reaction (Severe, Verified 06/20/17 12:30) Unknown sotalol Adverse Reaction (Severe, Verified 06/20/17 12:29) Unknown quinaglute Adverse Reaction (Severe, Uncoded 06/20/17 12:29) Unknown Home Medications: Ambulatory Orders Medication Instructions Recorded Acetaminophen [Tylenol] 1,000 mg PO Q4H PRN PRN 05/17/15 Calcium Acetate [Phoslo Gel Cap] 2 cap PO TIDCM 05/17/15 Lisinopril [Zestril] 20 mg PO DAILY 05/17/15 Cinacalcet HCl [Sensipar] 30 mg PO DAILY 09/08/15 Omeprazole 20 mg PO BID 02/05/17 Albuterol Sulfate [Ventolin Hfa] 1 puff INHALATION Q4H PRN PRN 05/22/17 Fluocinonide 1 applicatio TOPICAL BID 05/22/17 Folic Acid/Vit Bcomp,C [Renal-Miguel Angel 0.8 mg PO DAILY 05/22/17 Tablet] Hydroxyzine Pamoate 50 mg PO BID 05/22/17 Oxycodone HCl/Acetaminophen 1 tablet PO Q6H PRN PRN 05/22/17 [Percocet 5-325] Clindamycin [Cleocin] 150 mg PO 4X/DAY #28 cap 05/25/17 Metoprolol(XL)Succ [Toprol Xl 100 mg PO BID #60 tab 05/25/17 (Beta Rosemarie)] Warfarin [Coumadin] 4 mg PO DAILY@1700 #15 tab 05/25/17 hydrocodone 5 mg-acetaminophen 325 1 tab PO .As Directed for Pain tab 06/20/17 mg tablet ondansetron HCl 4 mg tablet 4 mg PO Q8H PRN tab 06/20/17 prednisone 20 mg tablet 20 mg PO .Take As Directed tab 06/20/17 tizanidine 2 mg capsule 2 mg PO QDAY cap 06/20/17 tramadol 50 mg tablet 50 mg PO .As needed tab 06/20/17 - Family History Maternal No pertinent history, - - Patient's mother at age of 73 with a history of end-stage renal failure. Paternal Renal Disease, - - The patient's mother at age of 69 with a history of kidney cancer. Smoking Status: Never smoker Tobacco Use: Non-smoker Review of Systems Constitutional: Denies: Chills, Fever, Weight Change Eyes: Denies: Pain, Vision Change HEENT: Denies: Difficulty Hearing, Difficulty Swallowing, Sinus Congestion Cardiovascular: Denies: Chest Pain, Palpitations Respiratory: Denies: Cough, Shortness of Breath Gastrointestinal: Denies: Diarrhea, Nausea, Vomiting Genitourinary: Denies: Dysuria, Hematuria Endocrine: Denies: Heat/ Cold Intolerance, Polydipsia, Polyuria Hematologic/ Lymphatic: Denies: Easy Bruising, Easy Bleeding - Physical Exam Vital Signs Temp Pulse Resp BP 98 F 73 16 154/90 H 06/25/17 11:59 06/25/17 11:59 06/25/17 11:59 06/25/17 11:59 General: Alert, Oriented x3, Cooperative, No apparent distress, Well developed, Well nourished HEENT: Atraumatic, PERRLA, EOMI, Normocephalic Oral: Moist Mucosa Neck: No JVD Lungs: Normal air movement Abdomen: Non-Distended Extremities: No clubbing, No cyanosis, No edema, No Calf Tenderness, - - The ulceration on the dorsum of the right foot, and the right lateral heel are both dry and escharous. There is no drainage, purulent or otherwise. There is no erythema or evidence of cellulitis or infection. Dimensions of the ulcerations are documented elsewhere. Skin: No rashes Wound Measurements and Assessment WC - Nurse 1 - General Ulcer Measurement Start: 06/11/17 11:26 Freq: Status: Active Protocol: Activity Type Activity Date Activity User E-Sign Co-Sign Detail Recorded Client Recorded Date Recorded By Document 06/25/17 11:59 [id number] 06/25/17 12:08 COLLIN 06/25/17 11:59 Wound Center Nurse 1 [Ulcer Assessment Protocol: MAYELIN.WD.LOC] #7- LT LAT FOOT -Combined with other wound No -Current Size (cm) - Length 0 -Current Size (cm) - Width 0 -Current Size (cm) - Depth 0 -Total Square Cm 0 -Epithelialization Large 67-100% #6- LT HEEL -Combined with other wound No -Current Size (cm) - Length 0 -Current Size (cm) - Width 0 -Current Size (cm) - Depth 0 -Total Square Cm 0 -Epithelialization Large 67-100% #3- RT LATERAL FOOT -Combined with other wound No -Current Size (cm) - Length 1.9 -Current Size (cm) - Width 1.5 -Current Size (cm) - Depth 0.1 -Total Square Cm 2.85 -Photo Taken Yes -Epithelialization Small 1-33% -Tunneling No -Undermining/Tunneling No -Circular Undermining No -Exudate Amt None Present (0 %) -Wound Margin Flat & Intact -Granulation Amt None Present (0 %) -Slough/Fibrin Yes -Necrosis Amt Large (67-100%) -Necrotic Tissue Type Adherent Slough -Structure Exposed N/A -Texture (Yasmeen-wound Skin Appearance) Assessed Localized Edema -Moisture (Yasmeen-wound Skin Appearance Assessed ) Dry/Scaly -Color (Yasmeen-wound Skin Appearance) Assessed Rubor -Temperature (Yasmeen-wound Skin No Abnormality Appearance) (Pt Warm) -Tenderness on Palpation (Yasmeen-wound No Skin Appearance) -Ulcer Cleansing Rinsed/ Irrigated with Saline -Foul Odor after Cleansing No -Anesthetic Used 5% Lidocaine Gel #2- RT MEDIAL FOOT -Combined with other wound No -Current Size (cm) - Length 1 -Current Size (cm) - Width 0.1 -Current Size (cm) - Depth 0.1 -Total Square Cm 0.1 -Photo Taken Yes -Epithelialization Large 67-100% -Tunneling No -Undermining/Tunneling No -Circular Undermining No -Exudate Amt None Present (0 %) -Wound Margin Flat & Intact -Granulation Amt None Present (0 %) -Slough/Fibrin Yes -Necrosis Amt Medium (34-66%) -Necrotic Tissue Type Adherent Slough -Structure Exposed N/A -Texture (Yasmeen-wound Skin Appearance) Assessed Localized Edema -Moisture (Yasmeen-wound Skin Appearance Assessed ) Dry/Scaly -Color (Yasmeen-wound Skin Appearance) Assessed Rubor -Temperature (Yasmeen-wound Skin No Abnormality Appearance) (Pt Warm) -Tenderness on Palpation (Yasmeen-wound No Skin Appearance) -Ulcer Cleansing Rinsed/ Irrigated with Saline -Foul Odor after Cleansing No -Anesthetic Used 5% Lidocaine Gel #1- RT ANTERIOR FOOT CLUSTER -Combined with other wound No -Current Size (cm) - Length 2.4 -Current Size (cm) - Width 2.5 -Current Size (cm) - Depth 0.2 -Total Square Cm 6.00 -Photo Taken Yes -Epithelialization Small 1-33% -Tunneling No -Undermining/Tunneling No -Circular Undermining No -Exudate Amt None Present (0 %) -Wound Margin Flat & Intact -Granulation Amt None Present (0 %) -Slough/Fibrin Yes -Necrosis Amt Large (67-100%) -Necrotic Tissue Type Adherent Slough -Structure Exposed N/A -Texture (Yasmeen-wound Skin Appearance) Assessed Localized Edema -Moisture (Yasmeen-wound Skin Appearance Assessed ) Dry/Scaly -Color (Yasmeen-wound Skin Appearance) Assessed Mottled Rubor -Temperature (Yasmeen-wound Skin No Abnormality Appearance) (Pt Warm) -Tenderness on Palpation (Yasmeen-wound No Skin Appearance) -Ulcer Cleansing Rinsed/ Irrigated with Saline -Foul Odor after Cleansing No -Anesthetic Used 5% Lidocaine Gel [Edema Assessment] -Lower Limb Edema Present Yes -Right Calf (cm) 27.6 -Right Ankle (cm) 23.5 Neurological: Cranial nerves II-XII grossly intact Psych/Mental Status: Normal Affect, Appropriate, Alert and oriented to time, place, person, mood and affect Debridement Note Post-Debridement Measurements/Treatment WC - Nurse 2 - General Ulcer CM Notes Start: 06/11/17 11:26 Freq: Status: Active Protocol: Activity Type Activity Date Activity User E-Sign Co-Sign Detail Recorded Client Recorded Date Recorded By Document 06/11/17 12:25 [id number] 06/11/17 13:42 Document 06/18/17 11:31 [id number] 06/18/17 11:42 JS 06/11/17 06/18/17 12:25 11:31 Wound Center Nurse 2 #7- LT LAT FOOT -Time 12:15 11:38 -Correct Patient Yes Yes -Correct Side, Site, Position Yes Yes -Correct Procedure Yes Yes -Procedure Performed No No -Wound/Ulcer Outcome Not Healed Not Healed -Ulcer Cleansing Rinsed/ Not Cleansed Irrigated with Saline -Foul Odor after Cleansing No No -Bioengineered Tissue No No -Cetacaine [place] No No -Topical Lidocaine (%) 4 -Lidocaine (ml) 5 -Bleeding Controlled with NA NA #6- LT HEEL -Time 12:15 11:39 -Correct Patient Yes Yes -Correct Side, Site, Position Yes Yes -Correct Procedure Yes Yes -Procedure Performed No No -Wound/Ulcer Outcome Not Healed Not Healed -Ulcer Cleansing Rinsed/ Not Cleansed Irrigated with Saline -Foul Odor after Cleansing No -Bioengineered Tissue No -Cetacaine [place] No No -Topical Lidocaine (%) 4 -Lidocaine (ml) 5 -Bleeding Controlled with NA NA #5- LT FOOT PLANTAR ASPECT -Time 12:15 11:39 -Correct Patient Yes Yes -Correct Side, Site, Position Yes Yes -Correct Procedure Yes Yes -Procedure Performed No No -Wound/Ulcer Outcome Not Healed Not Healed -Ulcer Cleansing Rinsed/ Not Cleansed Irrigated with Saline -Foul Odor after Cleansing No No -Bioengineered Tissue No No -Cetacaine [place] No No -Topical Lidocaine (%) 4 -Lidocaine (ml) 5 -Bleeding Controlled with NA #3- RT LATERAL FOOT -Time 12:15 11:40 -Correct Patient Yes Yes -Correct Side, Site, Position Yes Yes -Correct Procedure Yes Yes -Procedure Performed No No -Wound/Ulcer Outcome Not Healed Not Healed -Ulcer Cleansing Rinsed/ Not Cleansed Irrigated with Saline -Foul Odor after Cleansing No No -Bioengineered Tissue No No -Cetacaine [place] No No -Topical Lidocaine (%) 4 -Lidocaine (ml) 5 -Bleeding Controlled with NA NA #2- RT MEDIAL FOOT -Time 12:15 11:40 -Correct Patient Yes Yes -Correct Side, Site, Position Yes Yes -Correct Procedure Yes Yes -Procedure Performed No No -Wound/Ulcer Outcome Not Healed Not Healed -Ulcer Cleansing Rinsed/ Not Cleansed Irrigated with Saline -Foul Odor after Cleansing No No -Bioengineered Tissue No No -Cetacaine [place] No No -Topical Lidocaine (%) 4 -Lidocaine (ml) 5 -Bleeding Controlled with NA NA #1- RT ANTERIOR FOOT CLUSTER -Time 12:15 11:40 -Correct Patient Yes Yes -Correct Side, Site, Position Yes Yes -Correct Procedure Yes Yes -Procedure Performed Yes Yes -Type of Procedure Debridement Debridement -Clinical Debridement Subcutaneous Subcutaneous -Post Debridement Size (cm) - Length 2.5 2.8 -Post Debridement Size (cm) - Width 3.2 2.9 -Post Debridement Size (cm) - Depth 0.1 0.2 -Total Square Cm 8.00 8.12 -Wound/Ulcer Outcome Not Healed Not Healed -Ulcer Cleansing Rinsed/ Not Cleansed Irrigated with Saline -Foul Odor after Cleansing No No -Bioengineered Tissue No No -Cetacaine [place] No No -Topical Lidocaine (%) 4 5 -Lidocaine (ml) 5 -Bleeding Controlled with NA NA -Treatment Response Procedure Not Procedure Not Tolerated Well Tolerated Well Pain Scale: 0-10 Numeric Is Patient Pain Free? Yes Yes We were prepared to perform a standard debridement of the patient's ulcerations today, as per Wound Center protocol. However, he expressly refused to allow debridement, stating that it hurts like hell, and you are only making the wounds worse. The patient's wishes were obliged, and debridements were not performed today. No debridement was completed today Assessment/Plan Active Problems ESRD (end stage renal disease) (Chronic) Non-compliance (Chronic) non-compliant with meds and with dialysis Hyperglycemia (Chronic) Ulcer of foot (Chronic) Assessment: This is a 57-year-old male with multiple, severe medical problems, which have been documented herein. He presents with wounds on his right foot, highly suspicious for pressure phenomenon likely due to swelling in the right foot while wearing unyielding footwear. The patient has undergone a battery of laboratory tests, with results as follows: White blood count 16.5, hemoglobin 10.5, hematocrit 32.7, platelets 230,000, sodium 134, potassium 7.0, BUN 86, creatinine 8.8, glucose 105, calcium 8.3, magnesium 2.8, AST 11, ALT 30, alkaline phosphatase 92, total protein 5.9, albumin 2.1. A culture result from 05/23/2017 was positive for Staphylococcus aureus, which appears sensitive to doxycycline, which the patient was taking with respect to his pulmonary infection. The patient's noninvasive lower extremity arterial study reveals triphasic waveforms at ankle level bilaterally. Ankle-brachial indices and digital-brachial indices are either normal or supra?normal bilaterally. Plan: Routine wound measures have been previously implemented, and the reasons for each measure thoroughly discussed with the patient. Patient has been encouraged to optimize his nutritional intake. He was to collaborate with his informatics spec in this regard to determine how best to achieve this objective. It is noted that he is relatively immobile and inactive, often spending long hours each day and idle sitting position. Furthermore, he sleeps in a recliner. He had been advised to elevate his lower extremities as much as possible. Elevation is to be to heart level or higher. He is to avoid idle sitting and standing. Activity has been encouraged. We attempted to initiate compression to the right lower extremity by means of SurePress, to be applied on a daily basis. We obtained a noninvasive lower extremity arterial study, which revealed no evidence of significant arterial occlusive disease, but evidence of arterial calcification within the arterial tree bilaterally. Recent culture was positive for Staphylococcus aureus, and the patient's course of doxycycline prescribed for a pulmonary infection appeared appropriate to the organism identified in his foot ulceration. We prescribed the use of collagenase Santyl topically on the dorsum of the right foot. Collagen hydrogel was prescribed topically on the other sites of the right foot, which are not frankly ulcerations. We arranged an appointment at [facility] for the fitting of appropriate shoes/footwear. It appears as though the patient's current ulceration is due to ill-fitted footwear, with pressure phenomenon which likely occurred due to swelling of the patient's right foot. Despite all the recommended measures, the patient has been largely noncompliant with most. He presents today, not only excessively late for his appointment, but without any dressing in place on his wounds, and claiming that he has not applied dressings for several days. It appears as though he has not been compliant with compression wraps and elevations as well. He did not follow through with [facility], as recommended. He is refusing standard serial debridements, which are a routine protocol in the wound healing center environment. Furthermore, the patient indicates that he wishes not to return for future visits. We will honor the patient's stated intentions, and his care will be turned back to his primary care physician, Dr. Conner Lopez. The patient will be discharged from care at the Wound Center at this time. With respect to properly fitted footwear, the patient has been given alternatives for fitting of shoes. [facility] in [place] or [employer] in [place] (chain store) are often able to accommodate patients with diabetes or other foot- related problems. Influenza vaccine was not administered today. The patient is not a smoker. He stands 5 feet 8 inches in height, and weighs 135 pounds. His BMI is 20.5, which is normal.
== END 2017-06-26 23:59 ==
LOC: WC 11:30
PROVIDERS: Family Provider Family Medicine; PCP Family Medicine; Visit Provider Surgery
DX: E11.621 Type 2 diabetes mellitus with foot ulcer (principal); I48.0 Paroxysmal atrial fibrillation; I27.20 Pulmonary hypertension, unspecified; D63.8 Anemia in other chronic diseases classified elsewhere; E11.22 Type 2 diabetes mellitus with diabetic chronic kidney disease; I13.2 Hypertensive heart and chronic kidney disease with heart failure and with stage 5 chronic kidney disease, or end stage renal disease; I50.9 Heart failure, unspecified; N18.6 End stage renal disease; Z99.2 Dependence on renal dialysis; Z91.15 Patient's noncompliance with renal dialysis; J96.11 Chronic respiratory failure with hypoxia; I44.39 Other atrioventricular block; L03.90 Cellulitis, unspecified; E87.5 Hyperkalemia; E83.59 Other disorders of calcium metabolism; Z99.81 Dependence on supplemental oxygen; I25.10 Atherosclerotic heart disease of native coronary artery without angina pectoris; Z85.528 Personal history of other malignant neoplasm of kidney; J44.9 Chronic obstructive pulmonary disease, unspecified; Z90.5 Acquired absence of kidney; M79.89 Other specified soft tissue disorders; Z79.899 Other long term (current) drug therapy; Z79.01 Long term (current) use of anticoagulants; Z91.14 Patient's other noncompliance with medication regimen; L97.512 Non-pressure chronic ulcer of other part of right foot with fat layer exposed
CPT/HCPCS: 11042; 93923; 99214; G0463

== ENCOUNTER 2017-07-10 16:34 | Emergency (ER) | payer MEDICARE, MEDICAID, SELFPAY ==
[2017-07-10 16:35] VITALS: BP 122/70; PULSE 65; RESP 18; TEMP 36.7; O2SAT 94
[2017-07-10 16:48] VITALS: BP 125/72; PULSE 66; RESP 22
--- NOTE | 2017-07-10 17:02 | RAD_ITS ---
STUDY: X-RAY CHEST REASON FOR EXAM: Male, 57 years old. Chest pain. TECHNIQUE: Single AP portable view of the chest. COMPARISON: 05/22/2017. FINDINGS: Normal lung volumes. Continued prominence density in the mid and lower lung urban bilaterally most consistent with pleural effusions and atelectasis or infiltrate. Moderate to marked cardiomegaly with pacer leads in the right atrium and right ventricle. Normal mediastinum and butch. Normal visualized pulmonary arteries. Normal visualized aortic arch and descending thoracic aorta. Normal visualized thoracic spine. Normal visualized ribs, clavicles, and shoulders. There is no demonstrated abnormality of the visualized soft tissue structures of the upper abdomen. RAD/Chest 1 View (Portable) IMPRESSION: Continued prominence density in the mid and lower lung urban bilaterally most consistent with pleural effusions and atelectasis or infiltrate. Cardiomegaly. Electronically Signed: Conor Durand MD at 17:31 EST , Service support ,
--- NOTE | 2017-07-10 17:02 | EKG12_ITS ---
Test Reason : PALPS Blood Pressure : / mmHG Vent. Rate : 065 BPM Atrial Rate : 065 BPM P-R Int : 122 ms QRS Dur : 096 ms QT Int : 460 ms P-R-T Axes : -02 009 154 degrees QTc Int : 478 ms Normal sinus rhythm Left ventricular hypertrophy ST/T wave abnormality: consider LVH repolarization;myocardial ischemia Abnormal ECG Confirmed by DAYANA CAMPOS, AGAPITO ([id number]), business editor KULDIP MASON ([id number]) on 07/12/2017 10:27:37 AM Referred By: NELLY Confirmed By:AGAPITO ANNE MD
[2017-07-10 17:28] LABS: Absolute Lymphocyte Count 1.02 X10^3/ul (0.83-4.51); Absolute Neutrophil Count 6.2 X10^3/uL (2.0-7.7); Basophil# 0.06 X10^3/uL; Basophil% 0.7 % (0-1); Eosinophils% 5.9 % (0-5); Hematocrit 36.9 % (40-54); Hemoglobin 11.5 g/dl (13.0-16.5); Lymphocyte # 1.02 X10^3/ul (4.0); Lymphocyte % 12.1 % (19-41); Mean Corp Hgb Conc 31.2 g/gl (32-36); Mean Corpuscular Volume 92.9 fL (80-94); Mean Platelet Vol. 10.5 fl (6.2-12.0); Monocyte# 0.69 X10^3/uL; Monocyte% 8.2 % (0-10); Neutrophil # 6.17 X10^3/uL (2.7-7.7); POSITIVE COUNT NO; POSITIVE DIFFERENTIAL NO; POSITIVE MORPHOLOGY NO; Platelet Count 154 K/mm3 (150-450); RBC Distribution Width CV 19.9 % (11.6-14.6); RBC Distribution Width SD 64.9 fl (35.1-43.9); Red Blood Count 3.97 M/mm3 (4.6-6.2); White Blood Count 8.5 K/mm3 (4.4-11.0)
[2017-07-10 17:51] LABS: Anion Gap 10 (5-15); BUN 18 mg/dL (7-18); Chloride 98 mmol/L (98-107); EST Glomerular Filtration Rate 19 mL/min (>60); Est Glom Filt Rate - Afr Amer 23 mL/min (>60); Estimated Creatinine Clearance 18.37 ml/min; Glucose 94 mg/dL (74-106); Potassium 3.3 mmol/L (3.5-5.1); Sodium Level 139 mmol/L (136-145)
--- NOTE | 2017-07-10 18:04 | ED.DCSUM_ITS ---
- ER Visit Summary Date of Service: 07/10/17 Chief Complaint: Palpitations History of Present Illness: The patient is a [address] Gould and Dr. Conner Portillo. He reports that he took 100 mg metoprolol at 9 AM as he typically does. He began dialysis at noon. Approximately 3 PM he went into atrial fibrillation so he took another 100 mg of metoprolol. States that his atrial fibrillation resolved. It lasted approximately an hour and a half. He denies any complaints at this time. He did get a full round of dialysis. Physical Examination: Vitals: Stable. Afebrile. General: Well-nourished and well-developed. Head: Normocephalic atraumatic. Neck: Supple, no lymphadenopathy. No JVD. Nontender. Cardiovascular: Regular rate and rhythm. No murmurs. Respiratory: No respiratory distress. Clear to auscultation bilaterally. Abdominal: Soft, nontender, nondistended, normal bowel sounds. No guarding, rebound, or peritoneal signs. Back: Nontender. Extremities: Nontender, 1+ edema of his lower extremities bilaterally. Skin: Normal color, no rash. Neurologic: Alert and oriented ?3. Cranial nerves II through XII are intact. Normal strength and sensation. Psych: Normal affect. Test Results: Chest x-ray shows cardiomegaly, CHF, bilateral pleural effusions, and atelectasis. This was compared to his prior x-rays and appears unchanged for quite some time now. EKG is sinus at 65. He has LVH with repolarization changes. Troponin is 0.11. However, over the past year his troponin has been anywhere from 0.09-0.18. Chem-7 is marked potassium 3.3, creatinine is 3.6, calcium 8.0. CBC is marked for a hemoglobin of 11.5, segmented neutrophils of 73, leukocytes of 12, and eosinophils of 6. Emergency Department Course and Treatment: He is resting comfortably without complaint and would like to go home. He already has an appointment to see Dr. Gould tomorrow. Treatment Plan: Discharged instructions to follow-up Dr. Gould tomorrow as previously scheduled. Return to the emergency department for any worsening symptoms. Disposition: To home in improved and stable condition. Impression: 1. Atrial fibrillation with conversion prior to arrival. 2. End-stage renal disease. 3. Indeterminate troponin, chronic. This note was generated with [employer] dictation software. It may contain incorrect words, spelling, and punctuation that were not noted in review of the chart prior to signing ED Disposition - Plan for ED Patient: Disposition: Home or Assisted Living Chief Complaint: Palpitations Instructions: ED Afib Referrals: Teernce Gould MD [STAFF PHYSICIAN] - Keep Bruno appointment
[2017-07-10 18:19] VITALS: O2SAT 96
[2017-07-10 18:25] VITALS: BP 138/77; PULSE 81; RESP 16; O2SAT 96
== END 2017-07-10 18:26 | disposition home or self-care (01) ==
PROVIDERS: Emergency Provider Emergency Medicine; Family Provider Family Medicine; PCP Family Medicine
DX: I48.91 Unspecified atrial fibrillation (principal); I13.2 Hypertensive heart and chronic kidney disease with heart failure and with stage 5 chronic kidney disease, or end stage renal disease; N18.6 End stage renal disease; I50.9 Heart failure, unspecified; Z99.2 Dependence on renal dialysis; R79.89 Other specified abnormal findings of blood chemistry; J90 Pleural effusion, not elsewhere classified; J98.11 Atelectasis; Z95.810 Presence of automatic (implantable) cardiac defibrillator; Z79.01 Long term (current) use of anticoagulants; Z79.899 Other long term (current) drug therapy
CPT/HCPCS: 71045; 80048; 84484; 85025; 93005; 99285; A4216

== ENCOUNTER 2017-08-23 07:38 | Inpatient (IN) | payer MEDICARE, MEDICAID, SELFPAY ==
[2017-08-23] VITALS (38 sets, daily range): BP systolic 85–140; BP diastolic 56–98; PULSE 93–132; RESP 14–27; TEMP 36.4–39.2; O2SAT 29–100; BMI 22.3; BMI 20.7
--- NOTE | 2017-08-23 07:45 | RAD_ITS ---
STUDY: X-RAY CHEST REASON FOR EXAM: Male, 57 years old. Chest pain. TECHNIQUE: Single AP portable view of the chest. COMPARISON: July 10, 2017. FINDINGS: Cardiac monitoring leads are present. A right-sided intracardiac pacemaker is present. There is hyperinflation of the lungs consistent with chronic obstructive lung disease (COPD). There is bilateral basilar airspace consolidation and atelectasis. There are bilateral pleural effusions. There is mild cardiac enlargement. Normal mediastinum and butch. Normal visualized pulmonary arteries. There is atherosclerotic tortuosity of the aortic arch and descending thoracic aorta. There is demineralization of the osseous structures. Normal visualized ribs, clavicles, and shoulders. There is no demonstrated abnormality of the visualized soft tissue structures of the upper abdomen. RAD/Chest 1 View (Portable) IMPRESSION: Unchanged appearance of the chest with findings suggestive of bilateral basilar airspace disease and atelectasis, and pleural effusions. Electronically Signed: Spring Betancourt MD at 8:58 EDT , Service support ,
--- NOTE | 2017-08-23 07:45 | EKG12_ITS ---
Test Reason : REPEAT-CP Blood Pressure : / mmHG Vent. Rate : 111 BPM Atrial Rate : 138 BPM P-R Int : 000 ms QRS Dur : 092 ms QT Int : 360 ms P-R-T Axes : 000 050 187 degrees QTc Int : [address] & T wave abnormality, consider lateral ischemia Abnormal ECG Confirmed by OLIVER CAMPOS, JAMIR ([id number]), web content editor KULDIP MASON ([id number]) on 08/26/2017 1:27:05 PM Referred By: NELLY Confirmed By:JAMIR BOYD MD
[2017-08-23] MEDS: dilTIAZem 25 MG/5 ML Vial 10 MG IV BOLUS (07:52)
--- NOTE | 2017-08-23 07:55 | ED.DCSUM_ITS ---
- ER Visit Summary Date of Service: 08/23/17 Chief Complaint: Chest pain History of Present Illness: The patient is a 57 M reports onset of chest pain yesterday. He points to the left pectoral region. He describes it as aching, tightness, and heaviness. He does have palpitations with a fast heart rate does feel short of breath. Patient does report having nausea and vomiting after eating dinner last evening. Patient has a history of sick sinus syndrome, atrial fibrillation, cardiomyopathy. He is on dialysis Saturday, Saturday, and Saturday. He does have an ICD. Physical Examination: Vital signs include a blood pressure of 126/94, temperature 98.3, heart rate 132, respiratory rate 20, pulse ox 92% on 2 L. Patient sitting upright in bed no acute distress. Heart is tachycardic and regular. Lung sounds with minimal expiratory wheezes. No respiratory distress. Abdomen is soft nontender. Extremity examination was no significant calf tenderness with minimal edema. Test Results: EKG is A. fib at [address] depression. Portable chest x -ray reveals chronic bilateral pleural effusions with cardiomegaly. There is a continued right midlung density felt to be secondary to atelectasis CBC was a white count 26.1 with 91% neutrophils. Hemoglobin is 10.7. Chemistry studies reveal a BUN of 53 and a creatinine of 6.64. INR is 4.6. Troponin 0 0.15, which is chronically elevated for him. Emergency Department Course and Treatment: He was given aspirin with EMS. He was given 10 mg of Cardizem ?2 doses. Heart rate is ranging between 112 and 125. Cardizem drip was started. Patient is given a dose of fentanyl for pain. Repeat EKG is atrial fibrillation at a rate of 111. The lateral ST depression is improving with rate control. At this time patient will be admitted for further treatment and evaluation. Treatment Plan: [] Disposition: Admit Impression: 1. A. fib RVR 2. Chest pain 3. Leukocytosis This note was generated with [employer] dictation software. It may contain incorrect words, spelling, and punctuation that were not noted in review of the chart prior to signing ED Disposition - Plan for ED Patient: Chief Complaint: Chest Pain Referrals: Conner Lopez MD [Primary Care Provider] -
[2017-08-23 08:13] LABS: Absolute Lymphocyte Count 0.46 X10^3/ul (0.83-4.51); Absolute Neutrophil Count 23.8 X10^3/uL (2.0-7.7); Basophil# 0.04 X10^3/uL; Basophil% 0.2 % (0-1); Differential Indicated SCAN CRITERIA MET; Eosinophil# 0.06 X10^3/uL; Eosinophils% 0.2 % (0-5); Hematocrit 33.9 % (40-54); Hemoglobin 10.7 g/dl (13.0-16.5); Lymphocyte # 0.46 X10^3/ul (4.0); Lymphocyte % 1.8 % (19-41); Mean Corp Hgb Conc 31.6 g/gl (32-36); Mean Corpuscular Hgb 28.6 pg (27.0-32.0); Mean Corpuscular Volume 90.6 fL (80-94); Mean Platelet Vol. 9.1 fl (6.2-12.0); Monocyte# 1.64 X10^3/uL; Monocyte% 6.3 % (0-10); Neutrophil # 23.82 X10^3/uL (2.7-7.7); Neutrophil % 91.2 % (47-70); POSITIVE COUNT NO; POSITIVE DIFFERENTIAL YES; POSITIVE MORPHOLOGY NO; Platelet Count 175 K/mm3 (150-450); RBC Distribution Width CV 16.8 % (11.6-14.6); RBC Distribution Width SD 55.9 fl (35.1-43.9); Red Blood Count 3.74 M/mm3 (4.6-6.2); White Blood Count 26.1 K/mm3 (4.4-11.0)
[2017-08-23 08:17] LABS: International Normalized Ratio 4.6; Prothrombin Time (Protime)PT. 43.9 SECONDS (11.7-14.9)
[2017-08-23] MEDS: dilTIAZem 25 MG/5 ML Vial 20 MG IV BOLUS (08:21)
[2017-08-23 08:23] LABS: Anion Gap 11 (5-15); BUN 53 mg/dL (7-18); Calcium,Total 8.5 mg/dL (8.5-10.1); Chloride 94 mmol/L (98-107); Creatinine, Serum 6.64 mg/dL (0.70-1.30); EST Glomerular Filtration Rate 9 mL/min (>60); Est Glom Filt Rate - Afr Amer 11 mL/min (>60); Estimated Creatinine Clearance 11.08 ml/min; Glucose 97 mg/dL (74-106); Potassium 3.9 mmol/L (3.5-5.1); Sodium Level 135 mmol/L (136-145)
--- NOTE | 2017-08-23 08:27 | EKG12_ITS ---
Test Reason : CP/SOB Blood Pressure : / mmHG Vent. Rate : 151 BPM Atrial Rate : 150 BPM P-R Int : 000 ms QRS Dur : 086 ms QT Int : 268 ms P-R-T Axes : 000 024 163 degrees QTc Int : 424 ms Atrial fibrillation with premature ventricular or aberrantly conducted complexes ST & T wave abnormality, consider lateral ischemia Abnormal ECG Confirmed by OLIVER CAMPOS, JAMIR ([id number]), general expeditor KULDIP MASON ([id number]) on 08/26/2017 1:28:16 PM Referred By: NELLY Confirmed By:JAMIR BOYD MD
[2017-08-23] MEDS: fentaNYL 100 MCG/2 ML Ampul 25 MCG IV (08:36)
--- NOTE | 2017-08-23 09:14 | NURSING ---
PCU AFIB WITH RVR IMAMURA
[2017-08-23] MEDS: proMETHazine 25 MG Tablet 12.5 MG PO (09:51)
[2017-08-23] MEDS: Pantoprazole Sodium 20 MG Tablet PO (12:23)
[2017-08-23] MEDS: Metoprolol(XL)Succ 100 MG Tablet PO (13:32)
[2017-08-23] MEDS: Acetaminophen 325 MG Tablet 650 MG PO ×2 (13:40→17:29)
[2017-08-23 14:14] LABS: Pathologist Review Reviewed
--- NOTE | 2017-08-23 14:24 | PCM.CONS.R ---
Problem List (1) ESRD (end stage renal disease) Status: Chronic Consultation - Renal 08/23/17 PCP/ Referring MD: Requesting physician: Dr Huerta Primary care physician: Conner Lopez Reason for Consultation:: ESRD - History of Present Illness History of Present Illness: The patient is a 57 year old M well known to us. ESRD on HD MWF schedule. Last HD was yesterday (rescheduled time) has known history of AFIB with RVR. usually takes extra doses of metoprolol if HR is high developed AFIB and admitted with chest discomfort INR noted to be high WBC is also high uses O2 at home at baseline breathing is ok - Allergies Allergies: Allergies disopyramide [From Norpace] Adverse Reaction (Severe, Verified 08/23/17 07:45) Unknown onion Adverse Reaction (Severe, Verified 08/23/17 07:45) Unknown sotalol Adverse Reaction (Severe, Verified 08/23/17 07:45) Unknown quinaglute Adverse Reaction (Severe, Uncoded 08/23/17 07:45) Unknown - Current Medications Current Medications: Current Medications Acetaminophen (Tylenol) 650 mg PO Q6H PRN PRN PRN Reason: Mild Pain (1-3)/Temp > 100.7 F Last Admin: 08/23/17 13:40 Dose: 650 mg Al Hydroxide/Mg Hydroxide (Mylanta Ii) 30 ml PO Q6H PRN PRN PRN Reason: Gastric burning Albuterol Sulfate (Ventolin Aerosols) 2.5 mg INHALATION Q4H PRN PRN Reason: SOB &/OR WHEEZING Bisacodyl (Dulcolax) 5 mg PO DAILY PRN PRN PRN Reason: Constipation Calcium Acetate (Phoslo Gel Cap) 667 mg PO TIDCM BRUNO Cinacalcet (Sensipar) 30 mg PO DAILY BRUNO Hydroxyzine Pamoate (Vistaril Pamoate Capsule) 50 mg PO TID PRN PRN PRN Reason: ANXIETY Diltiazem HCl 125 mg/ Dextrose 125 mls @ 5 mls/hr CONT INF .Q25H BRUNO PRN Reason: 5 MG/HR Last Admin: 08/23/17 08:34 Dose: 5 mls/hr Lisinopril (Zestril) 20 mg PO DAILY [facility] Magnesium Hydroxide (Milk Of Magnesia) 30 ml PO DAILY PRN PRN Reason: Constipation Metoprolol Succinate (Toprol Xl (Beta Rosemarie)) 100 mg PO BID [facility] Last Admin: 08/23/17 13:32 Dose: 100 mg Non-Formulary Medication (Folic Acid/Vit Bcomp,C [Renal-Miguel Angel Tablet]) 1 mg PO DAILY [facility] Nutritional Formula (Nepro Carb Steady) 120 ml PO 4X/DAY [facility] Ondansetron HCl (Zofran) 4 mg IV Q8H PRN PRN PRN Reason: NAUSEA Pantoprazole Sodium (Protonix) 20 mg PO DAILY [facility] Last Admin: 08/23/17 12:23 Dose: 20 mg Zolpidem Tartrate (Ambien (Generic)) 5 mg PO QHS PRN PRN PRN Reason: INSOMNIA - Past Medical History Past Medical History (Chronic Problems): Chronic Problems (Last Reviewed 07/16/17 @ 13:09 by Virginia Buchanan) Cardiac pacemaker in situ (Chronic) Dual-chamber ICD implanted 12/07/15 at [facility]; Sick sinus syndrome (Chronic) S/P dual-chamber Pacemaker/ICD ESRD (end stage renal disease) (Chronic) HTN (hypertension) (Chronic) Afib (Chronic) paroxysmal on Eliquis PAF (paroxysmal atrial fibrillation) (Chronic) Pulmonary HTN (Chronic) Anemia with chronic illness (Chronic) Non-compliance (Chronic) non-compliant with meds and with dialysis Non-compliance with renal dialysis (Chronic) Hypoxia (Chronic) Respiratory failure with hypoxia (Chronic) Encounter for hemodialysis for end-stage renal disease (Chronic) Hyperglycemia (Chronic) Bilateral pleural effusion (Chronic) S/p nephrectomy (Chronic) High-grade atrioventricular block (Chronic) Cardiomyopathy (Chronic) Dependent on hemodialysis (Chronic) Ulcer of foot (Chronic) Supplemental oxygen dependent (Chronic) CHF (congestive heart failure) (Chronic) Coronary artery arteriosclerosis (Chronic) Parathyroid disease (Chronic) COPD (chronic obstructive pulmonary disease) (Chronic) History of nephrectomy (Chronic) History of kidney cancer (Chronic) Chest pain (Chronic) - Past Surgical History Surgical History: - - AVF placement PAIGE, left nephrectomy for cancer, cardiac defibrillator placement in 2015. Right inguinal hernia repair in the remote past. - Social History Smoking Status: Former smoker - Family History Maternal History Items: No pertinent history, - - Patient's mother at age of 73 with a history of end-stage renal failure. Paternal History Items: Renal Disease, - - The patient's mother at age of 69 with a history of kidney cancer. Review of Systems Constitutional: Denies: Chills, Fever, Weight Change HEENT: Denies: Head Aches, Sinus Congestion, Sinus Drainage Cardiovascular: Denies: Chest Pain, Palpitations Respiratory: Denies: Cough, Shortness of breath at rest, Sputum production Gastrointestinal: Denies: Abdominal Pain, Nausea, Vomiting Genitourinary: Denies: Dysuria Musculoskeletal: Denies: Joint Pain, Joint Tenderness Skin: Denies: Rash, Wounds Neurological: Denies: Numbness, Tingling, Focal weakness Psychiatric: Denies: Anxiety, Depression, Homicidal Ideations, Suicidal Ideations Hematologic/ Lymphatic: Denies: Easy Bruising, Easy Bleeding - Physical Exam General: Alert, Oriented x3, Cooperative HEENT: Atraumatic, PERRLA, EOMI, Normocephalic Neck: Supple, No JVD, Negative Carotid Bruits Lungs: Clear to auscultation, Normal air movement Cardiovascular: Regular rate, No murmurs Abdomen: Bowel Sounds Present, Soft, Non Tender Extremities: No edema, Capillary Refill Less than 3 Seconds Skin: No rashes, No breakdown Musculoskeletal: No Tenderness to Palpation of Joints or Extremities Neurological: Cranial nerves II-XII grossly intact Psych/Mental Status: Normal Affect, Appropriate Vital Signs Temp Pulse Resp BP Pulse Ox 98.4 F 107 H 14 101/66 96 08/23/17 13:19 08/23/17 13:32 08/23/17 13:19 08/23/17 13:19 08/23/17 13:19 Oxygen Flow Rate (L/min) 2 Oxygen Delivery Method Nasal Cannula Weight: 60 kg Body Mass Index (BMI) 20.7 Intake and Output for Last 24 Hours 08/21/17 08/22/17 08/23/17 23:59 23:59 23:59 Intake Total 190 / 190 Balance 190 / 190 Assessment/Plan ESRD. He did have dialysis yesterday. Currently he is coagulopathic with INR at 4.6 and bleeding from nose. hold off dialysis today and schedule tomorrow Coagulopathy. INR is high. having some nose bleeds now. hold coumadin. management as per primary Anemia. Hb is at goal WBC noted to be high. ? source
--- NOTE | 2017-08-23 14:27 | CON.PCM_ITS ---
Problem List (1) ESRD (end stage renal disease) Status: Chronic Consultation - Renal 08/23/17 PCP/ Referring MD: Requesting physician: Dr Huerta Primary care physician: Conner Lopez Reason for Consultation:: ESRD - History of Present Illness History of Present Illness: The patient is a 57 year old M well known to us. ESRD on HD MWF schedule. Last HD was yesterday (rescheduled time) has known history of AFIB with RVR. usually takes extra doses of metoprolol if HR is high developed AFIB and admitted with chest discomfort INR noted to be high WBC is also high uses O2 at home at baseline breathing is ok - Allergies Allergies: Allergies disopyramide [From Norpace] Adverse Reaction (Severe, Verified 08/23/17 07:45) Unknown onion Adverse Reaction (Severe, Verified 08/23/17 07:45) Unknown sotalol Adverse Reaction (Severe, Verified 08/23/17 07:45) Unknown quinaglute Adverse Reaction (Severe, Uncoded 08/23/17 07:45) Unknown - Current Medications Current Medications: Current Medications Acetaminophen (Tylenol) 650 mg PO Q6H PRN PRN PRN Reason: Mild Pain (1-3)/Temp > 100.7 F Last Admin: 08/23/17 13:40 Dose: 650 mg Al Hydroxide/Mg Hydroxide (Mylanta Ii) 30 ml PO Q6H PRN PRN PRN Reason: Gastric burning Albuterol Sulfate (Ventolin Aerosols) 2.5 mg INHALATION Q4H PRN PRN Reason: SOB &/OR WHEEZING Bisacodyl (Dulcolax) 5 mg PO DAILY PRN PRN PRN Reason: Constipation Calcium Acetate (Phoslo Gel Cap) 667 mg PO TIDCM BRUNO Cinacalcet (Sensipar) 30 mg PO DAILY BRUNO Hydroxyzine Pamoate (Vistaril Pamoate Capsule) 50 mg PO TID PRN PRN PRN Reason: ANXIETY Diltiazem HCl 125 mg/ Dextrose 125 mls @ 5 mls/hr CONT INF .Q25H BRUNO PRN Reason: 5 MG/HR Last Admin: 08/23/17 08:34 Dose: 5 mls/hr Lisinopril (Zestril) 20 mg PO DAILY BRUNO Magnesium Hydroxide (Milk Of Magnesia) 30 ml PO DAILY PRN PRN Reason: Constipation Metoprolol Succinate (Toprol Xl (Beta Rosemarie)) 100 mg PO BID [facility] Last Admin: 08/23/17 13:32 Dose: 100 mg Non-Formulary Medication (Folic Acid/Vit Bcomp,C [Renal-Miguel Angel Tablet]) 1 mg PO DAILY [facility] Nutritional Formula (Nepro Carb Steady) 120 ml PO 4X/DAY [facility] Ondansetron HCl (Zofran) 4 mg IV Q8H PRN PRN PRN Reason: NAUSEA Pantoprazole Sodium (Protonix) 20 mg PO DAILY [facility] Last Admin: 08/23/17 12:23 Dose: 20 mg Zolpidem Tartrate (Ambien (Generic)) 5 mg PO QHS PRN PRN PRN Reason: INSOMNIA - Past Medical History Past Medical History (Chronic Problems): Chronic Problems (Last Reviewed 07/16/17 @ 13:09 by Virginia Buchanan) Cardiac pacemaker in situ (Chronic) Dual-chamber ICD implanted 12/07/15 at [facility]; Sick sinus syndrome (Chronic) S/P dual-chamber Pacemaker/ICD ESRD (end stage renal disease) (Chronic) HTN (hypertension) (Chronic) Afib (Chronic) paroxysmal on Eliquis PAF (paroxysmal atrial fibrillation) (Chronic) Pulmonary HTN (Chronic) Anemia with chronic illness (Chronic) Non-compliance (Chronic) non-compliant with meds and with dialysis Non-compliance with renal dialysis (Chronic) Hypoxia (Chronic) Respiratory failure with hypoxia (Chronic) Encounter for hemodialysis for end-stage renal disease (Chronic) Hyperglycemia (Chronic) Bilateral pleural effusion (Chronic) S/p nephrectomy (Chronic) High-grade atrioventricular block (Chronic) Cardiomyopathy (Chronic) Dependent on hemodialysis (Chronic) Ulcer of foot (Chronic) Supplemental oxygen dependent (Chronic) CHF (congestive heart failure) (Chronic) Coronary artery arteriosclerosis (Chronic) Parathyroid disease (Chronic) COPD (chronic obstructive pulmonary disease) (Chronic) History of nephrectomy (Chronic) History of kidney cancer (Chronic) Chest pain (Chronic) - Past Surgical History Surgical History: - - AVF placement PAIGE, left nephrectomy for cancer, cardiac defibrillator placement in 2015. Right inguinal hernia repair in the remote past. - Social History Smoking Status: Former smoker - Family History Maternal History Items: No pertinent history, - - Patient's mother at age of 73 with a history of end-stage renal failure. Paternal History Items: Renal Disease, - - The patient's mother at age of 69 with a history of kidney cancer. Review of Systems Constitutional: Denies: Chills, Fever, Weight Change HEENT: Denies: Head Aches, Sinus Congestion, Sinus Drainage Cardiovascular: Denies: Chest Pain, Palpitations Respiratory: Denies: Cough, Shortness of breath at rest, Sputum production Gastrointestinal: Denies: Abdominal Pain, Nausea, Vomiting Genitourinary: Denies: Dysuria Musculoskeletal: Denies: Joint Pain, Joint Tenderness Skin: Denies: Rash, Wounds Neurological: Denies: Numbness, Tingling, Focal weakness Psychiatric: Denies: Anxiety, Depression, Homicidal Ideations, Suicidal Ideations Hematologic/ Lymphatic: Denies: Easy Bruising, Easy Bleeding - Physical Exam General: Alert, Oriented x3, Cooperative HEENT: Atraumatic, PERRLA, EOMI, Normocephalic Neck: Supple, No JVD, Negative Carotid Bruits Lungs: Clear to auscultation, Normal air movement Cardiovascular: Regular rate, No murmurs Abdomen: Bowel Sounds Present, Soft, Non Tender Extremities: No edema, Capillary Refill Less than 3 Seconds Skin: No rashes, No breakdown Musculoskeletal: No Tenderness to Palpation of Joints or Extremities Neurological: Cranial nerves II-XII grossly intact Psych/Mental Status: Normal Affect, Appropriate Vital Signs Temp Pulse Resp BP Pulse Ox 98.4 F 107 H 14 101/66 96 08/23/17 13:19 08/23/17 13:32 08/23/17 13:19 08/23/17 13:19 08/23/17 13:19 Oxygen Flow Rate (L/min) 2 Oxygen Delivery Method Nasal Cannula Weight: 60 kg Body Mass Index (BMI) 20.7 Intake and Output for Last 24 Hours 08/21/17 08/22/17 08/23/17 23:59 23:59 23:59 Intake Total 190 / 190 Balance 190 / 190 Assessment/Plan ESRD. He did have dialysis yesterday. Currently he is coagulopathic with INR at 4.6 and bleeding from nose. hold off dialysis today and schedule tomorrow Coagulopathy. INR is high. having some nose bleeds now. hold coumadin. management as per primary Anemia. Hb is at goal WBC noted to be high. ? source
[2017-08-23] MEDS: Nepro Liquid 120 ML LIQUID PO (14:38)
[2017-08-23 17:22] LABS: Lactic Acid 4.4 mmol/L (0.4-2.0)
[2017-08-23] MEDS: Ondansetron 4 MG/2 ML Vial IV (17:30)
[2017-08-23] MEDS: LORazepam 2 MG/ML Syringe 0.5 MG IV (17:43)
--- NOTE | 2017-08-23 17:46 | HP.PCM_ITS ---
Problem List (1) Sepsis Status: Acute Qualifiers: Sepsis type: sepsis due to unspecified organism Qualified Code(s): A41.9 - Sepsis, unspecified organism (2) Atrial fibrillation with RVR Status: Acute (3) ESRD (end stage renal disease) Status: Chronic (4) HTN (hypertension) Status: Chronic Qualifiers: Hypertension type: essential hypertension Qualified Code(s): I10 - Essential (primary) hypertension (5) Pulmonary HTN Status: Chronic (6) Supratherapeutic INR Status: Acute History of Present Illness Date of Admission: 08/23/17 Chief Complaint: Chest pain Patient is a 57 years old male who presents to ED with complaining of palpitation and chest pain, admitted on 08/23/17. He has history of paroxysmal atrial fibrillation, presents with above complains. He attributes chest pain to tachycardia of rate up to 150's. The pain is left lower chest, with stubbing pain. He denied of any diaphoresis or dyspnea, pain lasted until he was seen in the ED. Pain has been lasting for more than 12 hours. He states that palpitation and racing of heart started 3 days ago. In ED, he was doing reasonably well. EKG showed atrial fibrillation rate 125, otherwise no acute change. He was given Fentanyl IVP for Chest pain. Troponin was 0.15, which is his baseline with ESRD. He was noted to have leukocytosis of 24,000. He was afebrile, and CXR showed stable appearing bibasilar fluid and atelectasis vs. infiltrate. Blood culture were drown. Diltiazem drip was started for rapid ventricular response. After he was transferred to PCU, he was doing reasonably well. He had an episode of epistaxis, which had stopped spontaneously. INR was elevated to 4.6. He spiked fever of 102.5, and he was becoming delirious. Lactic acid was obtained, which was 4.6. IVF bolus was started. Blood pressure is right around 100 systolic. Past Medical History Past Medical History (Chronic Problems): Chronic Problems (Last Reviewed 07/16/17 @ 13:09 by Virginia Buchanan) Cardiac pacemaker in situ (Chronic) Dual-chamber ICD implanted 12/07/15 at [facility]; Sick sinus syndrome (Chronic) S/P dual-chamber Pacemaker/ICD ESRD (end stage renal disease) (Chronic) HTN (hypertension) (Chronic) Afib (Chronic) paroxysmal on Eliquis PAF (paroxysmal atrial fibrillation) (Chronic) Pulmonary HTN (Chronic) Anemia with chronic illness (Chronic) Non-compliance (Chronic) non-compliant with meds and with dialysis Non-compliance with renal dialysis (Chronic) Hypoxia (Chronic) Respiratory failure with hypoxia (Chronic) Encounter for hemodialysis for end-stage renal disease (Chronic) Hyperglycemia (Chronic) Bilateral pleural effusion (Chronic) S/p nephrectomy (Chronic) High-grade atrioventricular block (Chronic) Cardiomyopathy (Chronic) Dependent on hemodialysis (Chronic) Ulcer of foot (Chronic) Supplemental oxygen dependent (Chronic) CHF (congestive heart failure) (Chronic) Coronary artery arteriosclerosis (Chronic) Parathyroid disease (Chronic) COPD (chronic obstructive pulmonary disease) (Chronic) History of nephrectomy (Chronic) History of kidney cancer (Chronic) Chest pain (Chronic) Allergies disopyramide [From Norpace] Adverse Reaction (Severe, Verified 08/23/17 07:45) Unknown onion Adverse Reaction (Severe, Verified 08/23/17 07:45) Unknown sotalol Adverse Reaction (Severe, Verified 08/23/17 07:45) Unknown quinaglute Adverse Reaction (Severe, Uncoded 08/23/17 07:45) Unknown Home Medications: Ambulatory Orders Medication Instructions Recorded Acetaminophen [Tylenol] 1,000 mg PO Q4H PRN PRN 05/17/15 Calcium Acetate [Phoslo Gel Cap] 1 cap PO TIDCM 05/17/15 Lisinopril [Zestril] 20 mg PO DAILY 05/17/15 Cinacalcet HCl [Sensipar] 30 mg PO DAILY 09/08/15 Omeprazole 20 mg PO BID 02/05/17 Folic Acid/Vit Bcomp,C [Renal-Miguel Angel 0.8 mg PO DAILY 05/22/17 Tablet] Hydroxyzine Pamoate 50 mg PO BID 05/22/17 ondansetron HCl 4 mg tablet 4 mg PO Q8H PRN tab 06/20/17 tramadol 50 mg tablet 50 mg PO PRN PRN tab 06/20/17 albuterol sulfate HFA 90 1 puff INHALATION Q4H PRN PRN #1 07/16/17 mcg/actuation aerosol inhaler device Metoprolol(XL)Succ [Toprol Xl 100 mg PO BID 08/23/17 (Beta Rosemarie)] Oxycodone HCl/Acetaminophen 1 tablet PO Q4H PRN PRN 08/23/17 [Percocet 5/325] Warfarin [Coumadin] 4 mg PO DAILY@1700 08/23/17 Surgical History: - - AVF placement PAIGE, left nephrectomy for cancer, cardiac defibrillator placement in 2016. Right inguinal hernia repair in the remote past. Smoking Status: Former smoker - *Family History Maternal History Items: No pertinent history, - - Patient's mother at age of 73 with a history of end-stage renal failure. Paternal History Items: Renal Disease, - - The patient's mother at age of 69 with a history of kidney cancer. Review of Systems Comment: ROS: In general: No significant constitutional symptoms prior to admission. No fever, no change in appetite. HEENT: Nose bleed. He also has multiple ulcerative lesions around lips and oral mucosa. He attributes to dry lips. CV/respiratory: See HPI. He also has mild edema, unchanged recently. GI : Patient denied any abdominal pain, nausea, vomiting, diarrhea, constipation, melena, or hematochezia. : Oliguric with ESRD. Neurology: Unremarkable. There is no history of seizure as an adult. Psychological: Unremarkable. ?. Endocrine: Unremarkable. Musculoskeletal: Unremarkable. VTE Information - Inpt Only VTE Present on Admission: No VTE Mechan Device Prophylaxis: SCD's VTE Pharm Prophylaxis ordered?: Yes Patient Problems: Active and Suspected Problems (Last Reviewed 07/16/17 @ 13:09 by Virginia Buchanan) Atrial fibrillation with RVR (Acute) Sepsis (Acute) Supratherapeutic INR (Acute) Objective: In general, patient is a cachectic appearing male. HEENT: Head is atraumatic, and normocephalic. Pupils are equal, round, and reactive to light and accommodations. Neck is supple. There is no lymphadenopathy, or thyromegaly. Dry lips with crusts of blood, no active bleeding now. Heart: Tachycardia, no murmur. Lungs: Diminished breath sounds at bases, but mostly clear. Abdomen: Abdominal wall is non-tender, and non-distended. There is no palpable mass or organomegaly. Normoactive bowel sounds are present. Extremities: There is no cyanosis or clubbing. Peripheral pulses are palpable. Trace edema bilaterally. Skin: There are no any skin discoloration or lesions. Neurological: CN II - XII are intact. Sensory and motor functions are grossly normal with no obvious deficit. Cerebellar functions are within normal range. Gait was not tested. - Physical Exam Vital Signs Temp Pulse Resp BP Pulse Ox 101.2 F H 120 H 19 H 108/87 H 100 08/23/17 17:05 08/23/17 17:16 08/23/17 17:16 08/23/17 17:16 08/23/17 17:16 Oxygen Flow Rate (L/min) 4 Oxygen Delivery Method Nasal Cannula Weight: 132 lb 4.438 oz Body Mass Index (BMI) 20.7 Intake and Output for Last 24 Hours 08/21/17 08/22/17 08/23/17 23:59 23:59 23:59 Intake Total 190 / 190 Balance 190 / 190 Laboratory Tests Past 24 Hrs 08/23/17 16:30 Lactic Acid 4.4 H* Assessment/Plan Active and Suspected Problems (Last Reviewed 07/16/17 @ 13:09 by Virginia Buchanan) Atrial fibrillation with RVR (Acute) Sepsis (Acute) Supratherapeutic INR (Acute) Patient is a 57 years old male who presents to ED with complaining of palpitation and chest pain, admitted on 08/23/17. He has history of paroxysmal atrial fibrillation, presents with above complains. He attributes chest pain to tachycardia of rate up to 150's. The pain is left lower chest, with stubbing pain. He denied of any diaphoresis or dyspnea, pain lasted until he was seen in the ED. Pain has been lasting for more than 12 hours. He states that palpitation and racing of heart started 3 days ago. In ED, he was doing reasonably well. EKG showed atrial fibrillation rate 125, otherwise no acute change. He was given Fentanyl IVP for Chest pain. Troponin was 0.15, which is his baseline with ESRD. He was noted to have leukocytosis of 26,000. He was afebrile, and CXR showed stable appearing bibasilar fluid and atelectasis vs. infiltrate. Blood culture were drown. Diltiazem drip was started for rapid ventricular response. After he was transferred to PCU, he was doing reasonably well. He had an episode of epistaxis, which had stopped spontaneously. INR was elevated to 4.6. He spiked fever of 102.5, and he was becoming delirious. Lactic acid was obtained, which was 4.6. IVF bolus was started. Blood pressure is right around 100 systolic. #1 Severe sepsis. With fever 102.5, WBC 26,000, lactic acid 4.4. Source of infection is not clear. He is oliguric, but has no urinary symptoms. CXR showed stable atelectasis vs. infiltrate, but no clear respiratory symptoms. He denied of any abdominal pain or diarrhea. He may have dialysis access (AV fistula) related infection. Blood cultures obtained in ED. Start vancomycin and Zosyn empirically. #2 atrial fibrillation with RVR. Diltiazem drip was started. Continue metoprolol po. Monitor with telemetry. #3 Chest pain, atypical. Etiology is not clear. Mild elevation of troponin appears chronic. Atypical chest pain with prolonged stubbing pain. Trend troponin to assure no myocardial infarction. #4 ESRD. Renal consult for HD. Apparently, he had HD day before admission. Anticipate HD tomorrow. #5 Elevated INR. He states that he was not taking warfarin, then restarted one month ago. Currently on 4 mg a day. INR 4.6 on admission. He had epistaxis, but it stopped spontaneously. Vitamin K was not given. Monitor INR QAM x 3 days. Warfarin on hold. #6 Essential hypertension. Blood pressure has been lower due to sepsis. Monitor closely. VTE prophylaxis: on warfarin, supratherapeutic. +SCD. GI prophylaxis: PPI po. Patient is full code. Disposition: to be determined. Code Visit Inpatient E&M: 84585 Init Hosp L3
--- NOTE | 2017-08-23 18:47 | PCM.RX.CS ---
Consult Pharmacy has been consulted to manage selected antiobiotic: Vancomycin Type of Consult: New start Suspected Infection: Sepsis Prior Doses of Antibiotics Received/Current Regimen: None Labs: Sodium 135 mmol/L (136-145) L 08/23/17 07:50 Potassium 3.9 mmol/L (3.5-5.1) 08/23/17 07:50 Chloride 94 mmol/L (98-107) L 08/23/17 07:50 Carbon Dioxide 30.0 mmol/L (21.0-32.0) 08/23/17 07:50 Anion Gap 11 (5-15) 08/23/17 07:50 BUN 53 mg/dL (7-18) H 08/23/17 07:50 Creatinine 6.64 mg/dL (0.70-1.30) H 08/23/17 07:50 Est GFR (MDRD) Af Amer 11 mL/min (>60) L 08/23/17 07:50 Est GFR (MDRD) Non-Af 9 mL/min (>60) L 08/23/17 07:50 BUN/Creatinine Ratio 8.0 RATIO (10-20) L 08/23/17 07:50 Glucose 97 mg/dL (74-106) 08/23/17 07:50 Microbiology: Pending Weight used for dosin kg Estimated Creatinine Clearance: 11ml/min Goal Trough: 10-15 mcg/mL Pharmacy Plan for Drug Dosing: Pt has a est crcl of 11 ml/min. He typically undergoes HD on MWF, but received Th and will receive again Sat. Dosed at 15mg/kg x1 on 08/23/17 and follow up dosing will depend on random level on 08/24/17. Pharmacy Service will continue to monitor and adjust dosing as required. Follow-Up Labs: Trough Vancomycin - Dialysis/Renal dosing Labs to be done on [date and time ordered]: Random level to be done at 0600 on Saturday08/24/17.
[2017-08-23 18:58] LABS: ALB/GLOB Ratio 0.7 RATIO (0.9-2.4); AST(SGOT) 31 U/L (15-37); Alanine Aminotransfer ALT/SGPT 32 U/L (16-61); Alkaline Phosphatase 212 U/L (45-117); Anion Gap 11 (5-15); BUN 59 mg/dL (7-18); BUN/Creat Ratio 8.1 RATIO (10-20); Calcium,Total 8.5 mg/dL (8.5-10.1); Chloride 95 mmol/L (98-107); Creatinine, Serum 7.31 mg/dL (0.70-1.30); EST Glomerular Filtration Rate 8 mL/min (>60); Est Glom Filt Rate - Afr Amer 10 mL/min (>60); Estimated Creatinine Clearance 9.35 ml/min; Globulin 4.1 g/dL (2.2-4.2); Glucose 93 mg/dL (74-106); Potassium 4.4 mmol/L (3.5-5.1); Protein, Total 7.1 g/dL (6.4-8.2); Sodium Level 133 mmol/L (136-145)
--- NOTE | 2017-08-23 19:45 | NURSING ---
Spoke with Dr. Guerrero in front of patient's room along with offgoing nurse Leila. Dr. Guerrero does not feel IVF are needed at this time as he is concerned about putting pt. into CHF. Pt. is dialysis and has history of CHF. OK to cycle lactic acid as per protocol. Dr. Guerrero feels IV Vancomycin and IV Zosyn will cover pt. for any infection.
--- NOTE | 2017-08-23 20:00 | NURSING ---
DR. LEE NOTIFIED OF LACTIC 4.4, TRIGGERING SEVERE SEPSIS ON VSA FOR TEMP OF 102.5, HIGH RR, BLOOD CULTURES ARE PENDING FROM ED. UNABLE TO OBTAIN URINE SPECIMEN D/T BEING ANURIC. MD DOES NOT WANT FLUIDS AT THIS TIME GIVEN HISTORY OF HEART FAILURE AND RENAL ISSUES, DOESNT WANT TO OVERLOAD THE PATIENT. BELIEVES IT MAY BE MORE BACTEREMIA D/T A/V FISTULA. PT WAS STARTED ON VANC AND ZOSYN.
[2017-08-23 20:36] LABS: Reflex Lactate? Y
[2017-08-23 22:01] LABS: Lactic Acid 2.2 mmol/L (0.4-2.0)
[2017-08-24] VITALS (34 sets, daily range): BP systolic 80–118; BP diastolic 40–86; PULSE 60–132; RESP 11–20; TEMP 36.1–37.1; O2SAT 91–99
[2017-08-24] MEDS: oxyCODONE 5 MG Tablet PO ×3 (01:38→17:10)
--- NOTE | 2017-08-24 03:44 | EKG12_ITS ---
Test Reason : Blood Pressure : / mmHG Vent. Rate : 060 BPM Atrial Rate : 060 BPM P-R Int : 176 ms QRS Dur : 094 ms QT Int : 452 ms P-R-T Axes : -09 066 132 degrees QTc Int : 452 ms Normal sinus rhythm Nonspecific ST and T wave abnormality Abnormal ECG When compared with ECG of 23-AUG-2017 08:32, MANUAL COMPARISON REQUIRED, DATA IS UNCONFIRMED Confirmed by OLIVER CAMPOS, JAMIR ([id number]), videotape editor KULDIP MASON ([id number]) on 08/27/2017 1:38:11 PM Referred By: ABHISHEK Confirmed By:JAMIR BOYD MD
--- NOTE | 2017-08-24 05:55 | ECHOD_ITS ---
Reason For Study: AFIB Procedure This was a 2D Doppler, Color Flow transthoracic echocardiogram. Exam performed portable in patient room. Left Ventricle Normal LV size. Mild concentric left ventricular hypertrophy. Moderate global left ventricular systolic dysfunction. The estimated ejection fraction is 30 %. There is moderate global hypokinesis of the left ventricle. Right Ventricle ICD or pacer leads identified within the right ventricle. Mild to moderate global right ventricular systolic dysfunction. Atria The left atrium is mildly enlarged. Normal right atrium. Mitral Valve Normal mitral valve. Mild-Moderate (1-2+) eccentric mitral valve insufficiency. Tricuspid Valve Normal tricuspid valve. Moderately severe (3+) tricuspid valve insufficiency. Pulmonary artery systolic pressure is 48 mmHg. Aortic Valve Trisinus/trileaflet aortic valve. Pulmonic Valve Normal pulmonic valve. Great Vessels Normal aortic root. The pulmonary artery is normal size. The inferior vena cava is dilated. Pericardium/Pleural No pericardial effusion. MMode/2D Measurements & Calculations LVIDd: 5.8 cm IVSd: 1.3 cm Ao root diam: 3.6 cm LVIDs: 4.9 cm LVPWd: 1.2 cm LA dimension: 4.8 cm RVDd: 5.1 cm FS: 15.8 % LAV(MOD-bp): 71.5 ml LA A4 area: 22.0 cm2 RA A4 area: 20.3 cm2 LAV(MOD-bp) Indexed: 42.2 ml/m2 LAV(MOD-sp2): 75.2 ml LAV(MOD-sp4): 66.5 ml Doppler Measurements & Calculations MV E max farzana: 80.5 cm/sec Ao V2 max: 175.2 cm/sec LV V1 max: 109.1 cm/sec MV A max farzana: 87.6 cm/sec Ao max P.3 mmHg LV V1 max P.8 mmHg MV E/A: 0.92 PA V2 max: 102.4 cm/sec PI end-d farzana: 137.3 cm/sec TR max farzana: 309.2 cm/sec TR max P.3 mmHg Interpretation Summary Normal LV size. Mild concentric left ventricular hypertrophy. Moderate global left ventricular systolic dysfunction. The estimated ejection fraction is 30 %. Pulmonary artery systolic pressure is 48 mmHg. Mild-Moderate (1-2+) eccentric mitral valve insufficiency. No seen vegetation Ordering Physician: Reji Combs Referring Physician: Conner Lopez Performed By: Lisset Layne, RDCS, RVT
[2017-08-24 06:07] LABS: Hematocrit 32.6 % (40-54); Hemoglobin 10.5 g/dl (13.0-16.5); Mean Corp Hgb Conc 32.2 g/gl (32-36); Mean Corpuscular Hgb 29.2 pg (27.0-32.0); Mean Corpuscular Volume 90.8 fL (80-94); Mean Platelet Vol. 9.5 fl (6.2-12.0); Platelet Count 157 K/mm3 (150-450); RBC Distribution Width CV 16.9 % (11.6-14.6); RBC Distribution Width SD 54.5 fl (35.1-43.9); Red Blood Count 3.59 M/mm3 (4.6-6.2); White Blood Count 27.7 K/mm3 (4.4-11.0)
[2017-08-24 06:08] LABS: Scan Indicated on CBC? Y/N NO
[2017-08-24 06:09] LABS: Prothrombin Time (Protime)PT. 43.7 SECONDS (11.7-14.9)
[2017-08-24 06:19] LABS: International Normalized Ratio 4.6
[2017-08-24 06:36] LABS: Lactic Acid 2.1 mmol/L (0.4-2.0); Vancomycin, Random Level 13.3 ug/mL (0.0-15.0)
[2017-08-24 06:39] LABS: Anion Gap 12 (5-15); BUN 65 mg/dL (7-18); BUN/Creat Ratio 8.5 RATIO (10-20); Calcium,Total 8.6 mg/dL (8.5-10.1); Chloride 91 mmol/L (98-107); Creatinine, Serum 7.69 mg/dL (0.70-1.30); EST Glomerular Filtration Rate 8 mL/min (>60); Est Glom Filt Rate - Afr Amer 9 mL/min (>60); Estimated Creatinine Clearance 8.89 ml/min; Glucose 116 mg/dL (74-106); Potassium 5.2 mmol/L (3.5-5.1); Sodium Level 130 mmol/L (136-145); Thyroid Stim Hormone (TSH) 0.78 uIU/mL (0.358-3.74)
--- NOTE | 2017-08-24 07:54 | PCM.PROGNOTE ---
Patient Problems: Active and Suspected Problems (Last Updated 08/24/17 @ 07:58 by Dwight Bhardwaj MD) Atrial fibrillation with RVR (Acute) Sepsis (Acute) Supratherapeutic INR (Acute) Subjective: Chief complaint: Follow-up after admission for chest pain with chronically borderline elevated troponin, severe sepsis, A. fib with RVR and bacteremia. Patient seen and examined. No acute events overnight. This morning, he is not interested in talking. He did mention that he has no more chest pain. Denies any shortness of breath. He is afebrile, blood pressure has been borderline, pulse ox is 98% on 2 L. - Physical Exam General: Alert, Oriented x3, Cooperative, No apparent distress HEENT: Atraumatic, PERRLA, EOMI Oral: Moist Mucosa, No Gingival or Mucosal Lesions/ Ulcerations Neck: Supple, No JVD, Negative Carotid Bruits, Trachea Midline, Thyroid Normal Size and Texture Lungs: Clear to auscultation, No wheeze, No rales, Diminished, Rhonchi, Short of Breath Cardiovascular: Normal S1, Normal S2, Irregular Rate Abdomen: Bowel Sounds Present, Soft, Non Tender, Non-Distended, No Hepato-splenomegaly Extremities: No clubbing, No cyanosis, Edema - Trace edema. Skin: No rashes, No breakdown Lymphatic: No Cervical, Supraclavicular, or Inguinal Adenopathy Neurological: Cranial nerves II-XII grossly intact, Motor Exam 5/5 strength throughout Psych/Mental Status: Flat Affect Vital Signs Temp Pulse Resp BP Pulse Ox 97.0 F L 60 20 H 97/66 99 08/24/17 06:00 08/24/17 07:08 08/24/17 06:00 08/24/17 06:00 08/24/17 06:00 Oxygen Flow Rate (L/min) 2 Oxygen Delivery Method Nasal Cannula Weight: 132 lb 4.438 oz Body Mass Index (BMI) 20.7 Intake and Output for Last 24 Hours 08/22/17 08/23/17 08/24/17 23:59 23:59 23:59 Intake Total 662 / 662 50 / 50 Output Total 0 / 0 0 / 0 Balance 662 / 662 50 / 50 Microbiology Past 72 Hours 08/23/17 09:35 Bacteria Detection (PCR) - Final Blood Culture (Wb) - Right Hand Staphylococcus aureus Blood Culture - Preliminary Staphylococcus aureus 08/23/17 09:44 Blood Culture - Preliminary Blood Culture (Wb) - Right Wrist Laboratory Tests Past 24 Hrs 08/23/17 08/23/17 08/23/17 16:30 18:02 18:02 WBC RBC Hgb Hct MCV MCH MCHC RDW RDW Differential Plt Count MPV PT INR Sodium 133 L Potassium 4.4 Chloride 95 L Carbon Dioxide 27.0 Anion Gap 11 BUN 59 H Creatinine 7.31 H Estim Creat Clear Calc 9.35 Est GFR (MDRD) Af Amer 10 L Est GFR (MDRD) Non-Af 8 L BUN/Creatinine Ratio 8.1 L Glucose 93 Lactic Acid 4.4 H* Calcium 8.5 Total Bilirubin 1.30 H AST 31 ALT 32 Alkaline Phosphatase 212 H Troponin I 0.14 H Total Protein 7.1 Albumin 3.0 L Globulin 4.1 Albumin/Globulin Ratio 0.7 L TSH Random Vancomycin 08/23/17 08/23/17 08/24/17 21:21 21:21 02:01 WBC RBC Hgb Hct MCV MCH MCHC RDW RDW Differential Plt Count MPV PT INR Sodium Potassium Chloride Carbon Dioxide Anion Gap BUN Creatinine Estim Creat Clear Calc Est GFR (MDRD) Af Amer Est GFR (MDRD) Non-Af BUN/Creatinine Ratio Glucose Lactic Acid 2.2 H Calcium Total Bilirubin AST ALT Alkaline Phosphatase Troponin I 0.13 H 0.20 H Total Protein Albumin Globulin Albumin/Globulin Ratio TSH Random Vancomycin 08/24/17 08/24/17 08/24/17 05:40 05:40 05:40 WBC 27.7 H RBC 3.59 L Hgb 10.5 L Hct 32.6 L MCV 90.8 MCH 29.2 MCHC 32.2 RDW 16.9 H RDW Differential 54.5 H Plt Count 157 MPV 9.5 PT 43.7 H INR 4.6 H* Sodium 130 L Potassium 5.2 H Chloride 91 L Carbon Dioxide 27.0 Anion Gap 12 BUN 65 H Creatinine 7.69 H* Estim Creat Clear Calc 8.89 Est GFR (MDRD) Af Amer 9 L Est GFR (MDRD) Non-Af 8 L BUN/Creatinine Ratio 8.5 L Glucose 116 H Lactic Acid Calcium 8.6 Total Bilirubin AST ALT Alkaline Phosphatase Troponin I Total Protein Albumin Globulin Albumin/Globulin Ratio TSH 0.78 Random Vancomycin 08/24/17 08/24/17 05:40 05:40 WBC RBC Hgb Hct MCV MCH MCHC RDW RDW Differential Plt Count MPV PT INR Sodium Potassium Chloride Carbon Dioxide Anion Gap BUN Creatinine Estim Creat Clear Calc Est GFR (MDRD) Af Amer Est GFR (MDRD) Non-Af BUN/Creatinine Ratio Glucose Lactic Acid 2.1 H Calcium Total Bilirubin AST ALT Alkaline Phosphatase Troponin I Total Protein Albumin Globulin Albumin/Globulin Ratio TSH Random Vancomycin 13.3 Clinical Impression(s) from Imaging Studies Chest X-Ray 08/23/17 07:45 IMPRESSION: Unchanged appearance of the chest with findings suggestive of bilateral basilar airspace disease and atelectasis, and pleural effusions. Electronically Signed: Spring Betancourt MD at 8:58 EDT , Service support , Medical Necessity - Tobacco Use Smoking Status: Former smoker Assessment/Plan Active and Suspected Problems (Last Updated 08/24/17 @ 07:58 by Dwight Bhardwaj MD) Atrial fibrillation with RVR (Acute) Sepsis (Acute) Supratherapeutic INR (Acute) This is a 57 years old male patient presented to the emergency room because of chest pain, developed a fever after admission and he was found to have staphylococcal bacteremia, severe sepsis, A. fib with RVR, borderline elevated troponin which is chronic and Coumadin induced coagulopathy. #1 severe sepsis: This is likely because of bacteremia. Chest x-ray showed bilateral basilar atelectasis with small effusion, no acute infiltrate. Pneumonia is unlikely. He is on IV vancomycin and Zosyn. He went back into A. fib with RVR, heart rate has been around 120s, blood pressure stable, pulse ox is 99% on 2 L and he is afebrile. Lactic acid is back to normal. Blood culture revealed staph aureus as below, repeat blood cultures pending. Plan: Continue same treatment, urinalysis, urine culture, infectious disease consult. #2 staphylococcal bacteremia: Source of bacteremia is probably the dialysis site which is the AV fistula. Patient is on IV vancomycin and Zosyn as above. He is afebrile, white blood cell count is trending up slightly. Repeat blood cultures pending. Plan: Infectious disease consult. #3 atypical chest pain/chronically borderline elevated troponin: Today, patient mentioned that his pain is better. EKG reveals no acute ischemic changes. Troponin is borderline elevated and flat and this is chronic likely because of ESRD. No indication for further cardiac workup. #4 Coumadin induced coagulopathy: Patient was started on Coumadin recently, admission INR was 4.6 and today morning, his INR remained at 4.6. Patient had an episode of epistaxis yesterday, stopped spontaneously. Hemoglobin and hematocrit are stable. Plan: We will give a small dose of vitamin K today, repeat INR tomorrow, keep holding Coumadin. #5 A. fib with RVR: Heart rate has been fluctuating, was in the 60s this morning and then went up to 120s. He is on metoprolol for rate control. He was on IV Cardizem drip which was discontinued. His INR is 4.6. At this time, we will keep him on metoprolol twice daily and if his heart rate remained persistently above 110, I am going to start him back on IV Cardizem drip. #6 ESRD on hemodialysis: His potassium today is 5.2, BUN of 65 and creatinine of 0.69 which is worse than yesterday. Nephrology consulted, patient probably will need hemodialysis today. #7 paroxysmal atrial fibrillation: As above, he is in A. fib with RVR, plan as above. #8 COPD/chronic respiratory failure: Has been stable, pulse ox has been around 99% on 2 L. Chest x-ray showed no acute findings. Continue DuoNeb every 6 hours and albuterol as needed. #9 hypertension: Blood pressure stable, continue lisinopril and metoprolol. #10 chronic systolic CHF status post ICD: At this time, no evidence of acute CHF. Clinically stable. He might need hemodialysis as above. Continue lisinopril and metoprolol. #11 sick sinus syndrome status post dual-chamber pacemaker: Heart rate has been fluctuating as above, plan as above. #12 DVT prophylaxis: INR is 4.6, elevated. This note was generated with [employer] software. It may contain incorrect words, spelling, and punctuation that were not noted in checking the note before signing. Code Visit Inpatient E&M: 35895 [facility] Hosp L3
[2017-08-24 09:59] LABS: Reflex Lactate? Y
--- NOTE | 2017-08-24 10:17 | EKG12_ITS ---
Test Reason : CHANGED BACK A-FIB Blood Pressure : / mmHG Vent. Rate : 129 BPM Atrial Rate : 153 BPM P-R Int : 000 ms QRS Dur : 092 ms QT Int : 366 ms P-R-T Axes : 000 045 186 degrees QTc Int : 536 ms Atrial fibrillation Nonspecific ST and T wave abnormality Abnormal ECG When compared with ECG of 24-AUG-2017 03:52, MANUAL COMPARISON REQUIRED, DATA IS UNCONFIRMED Confirmed by OLIVER CAMPOS, JAMIR ([id number]), desk editor KULDIP MASON ([id number]) on 08/27/2017 1:39:08 PM Referred By: JESUS Confirmed By:JAMIR BOYD MD
--- NOTE | 2017-08-24 10:27 | NURSING ---
tele monitor showing that patient went back into afib, called for 12 lead ekg to confirm. pt is asymptomatic. he is currently receiving dialysis. blood pressure is WNL. heart rate is ranging from [address] Bhardwaj paged to notify.
[2017-08-24 11:00] LABS: Lactic Acid 0.6 mmol/L (0.4-2.0)
[2017-08-24] MEDS: Phytonadione (Vit K) 10 MG/ML Ampul 2.5 MG SC (11:06)
[2017-08-24] MEDS: Folic Acid/Vitamin B Comp W-C 1 Capsule 1 CAP PO (11:07)
[2017-08-24] MEDS: Lisinopril 10 MG Tablet 20 MG PO (11:08)
[2017-08-24] MEDS: Pantoprazole Sodium 20 MG Tablet PO (11:08)
[2017-08-24] MEDS: Cinacalcet HCl 30 MG Tablet PO (11:09)
[2017-08-24] MEDS: Metoprolol(XL)Succ 100 MG Tablet PO (11:09)
[2017-08-24] MEDS: Calcium Acetate 667 MG Capsule PO (11:39)
[2017-08-24] MEDS: Nepro Liquid 120 ML LIQUID PO (13:56)
[2017-08-24] MEDS: Metoprolol Tartrate 5 MG/5 ML Vial IV (14:17)
[2017-08-24] MEDS: 0.9% NaCl Peripheral Flush Adult/Peds IV ×2 (14:17→22:21)
[2017-08-24] MEDS: Ipratropium/Albuterol Sulfate 3 ML AMPUL.NEB INHALATION (14:27)
--- NOTE | 2017-08-24 14:54 | CASEMGMT ---
See attached chief technician. Patient also sees Dr. Mejia, Dr. Koehler and Dr. Gould. States Pierre from [facility] is involved as well. Patient was drowsy during assessment. Farrukh Shaffer RN, [facility].
[2017-08-24] MEDS: Mag Hydrox/Al Hydrox/Simeth 30 ML UDC PO (17:10)
[2017-08-25] VITALS (39 sets, daily range): BP systolic 74–116; BP diastolic 57–88; PULSE 60–115; RESP 12–20; TEMP 36.1–37.1; O2SAT 90–100
--- NOTE | 2017-08-25 00:30 | EKG12_ITS ---
Test Reason : RHYTHM CHANGE Blood Pressure : / mmHG Vent. Rate : 064 BPM Atrial Rate : 064 BPM P-R Int : 150 ms QRS Dur : 096 ms QT Int : 442 ms P-R-T Axes : -03 070 149 degrees QTc Int : 455 ms Normal sinus rhythm Nonspecific ST and T wave abnormality Abnormal ECG When compared with ECG of 24-AUG-2017 10:40, MANUAL COMPARISON REQUIRED, DATA IS UNCONFIRMED Confirmed by OLIVER CAMPOS, JAMIR ([id number]), design editor KULDIP MASON ([id number] on 08/30/2017 1:10:05 PM Referred By: JESUS Confirmed By:JAMIR BOYD MD
--- NOTE | 2017-08-25 02:39 | NURSING ---
Attempt IV x 3 without success. Primary RN aware.
[2017-08-25] MEDS: Acetaminophen 325 MG Tablet 650 MG PO (04:08)
[2017-08-25 06:10] LABS: International Normalized Ratio 1.8; Prothrombin Time (Protime)PT. 21.3 SECONDS (11.7-14.9)
[2017-08-25 06:20] LABS: Absolute Neutrophil Count 19.4 X10^3/uL (2.0-7.7); Basophil# 0.04 X10^3/uL; Basophil% 0.2 % (0-1); Eosinophils% 0.5 % (0-5); Hematocrit 36.1 % (40-54); Hemoglobin 11.4 g/dl (13.0-16.5); Mean Corp Hgb Conc 31.6 g/gl (32-36); Mean Corpuscular Hgb 29.1 pg (27.0-32.0); Mean Corpuscular Volume 92.1 fL (80-94); Mean Platelet Vol. 10.1 fl (6.2-12.0); Monocyte# 1.54 X10^3/uL; Monocyte% 6.9 % (0-10); Neutrophil # 19.37 X10^3/uL (2.7-7.7); Neutrophil % 87.1 % (47-70); Platelet Count 176 K/mm3 (150-450); RBC Distribution Width CV 17.2 % (11.6-14.6); RBC Distribution Width SD 56.7 fl (35.1-43.9); Red Blood Count 3.92 M/mm3 (4.6-6.2); White Blood Count 22.2 K/mm3 (4.4-11.0)
[2017-08-25 06:39] LABS: Differential Indicated SCAN CRITERIA MET; POSITIVE COUNT NO; POSITIVE DIFFERENTIAL YES; POSITIVE MORPHOLOGY NO
[2017-08-25 06:51] LABS: Differential Comment SCANNED
--- NOTE | 2017-08-25 08:02 | PCM.PROGNOTE ---
Patient Problems: Active and Suspected Problems (Last Updated 08/24/17 @ 07:58 by Dwight Bhardwaj MD) Atrial fibrillation with RVR (Acute) Sepsis (Acute) Supratherapeutic INR (Acute) Subjective: Chief complaint: Follow-up after admission for chest pain with chronically borderline elevated troponin, severe sepsis, A. fib with RVR and bacteremia. Patient seen and examined. No acute events overnight. Today, he has no more chest pain. Denied shortness of breath, dizziness or lightheadedness. Denied palpitation, syncope or presyncope. Denies cough or sputum production. His vital signs are stable, he is in sinus rhythm and his heart rate has been stable after started on amiodarone drip. - Physical Exam General: Alert, Oriented x3, Cooperative, No apparent distress HEENT: Atraumatic, PERRLA, EOMI Oral: Moist Mucosa, No Gingival or Mucosal Lesions/ Ulcerations Neck: Supple, No JVD, Negative Carotid Bruits, Trachea Midline, Thyroid Normal Size and Texture Lungs: Clear to auscultation, No rhonchi, No wheeze, No rales, Diminished Cardiovascular: Regular rate, Regular Rhythm, Normal S1, Normal S2, PMI Normal Abdomen: Bowel Sounds Present, Soft, Non Tender, Non-Distended, No Hepato-splenomegaly Extremities: No clubbing, No cyanosis, No edema Skin: No rashes, No breakdown Lymphatic: No Cervical, Supraclavicular, or Inguinal Adenopathy Neurological: Cranial nerves II-XII grossly intact, Neuro grossly intact Psych/Mental Status: Flat Affect Vital Signs Temp Pulse Resp BP Pulse Ox 97.0 F L 60 16 107/67 96 08/25/17 07:00 08/25/17 07:19 08/25/17 07:00 08/25/17 07:00 08/25/17 07:00 Oxygen Flow Rate (L/min) 2 Oxygen Delivery Method Nasal Cannula Weight: 133 lb 6.075 oz Body Mass Index (BMI) 20.7 Intake and Output for Last 24 Hours 08/23/17 08/24/17 08/25/17 23:59 23:59 23:59 Intake Total 662 / 662 1122 / 1122 120 / 120 Output Total 0 / 0 0 / 0 Balance 662 / 662 1122 / 1122 120 / 120 Microbiology Past 72 Hours 08/24/17 05:45 Blood Culture - Preliminary Blood Culture (Wb)#3 - Right Hand Staphylococcus aureus 08/24/17 05:40 Blood Culture - Preliminary Blood Culture (Wb)#3 - Right Hand Staphylococcus aureus 08/23/17 09:44 Blood Culture - Final Blood Culture (Wb) - Right Wrist Staphylococcus aureus 08/23/17 09:35 Bacteria Detection (PCR) - Final Blood Culture (Wb) - Right Hand Staphylococcus aureus Blood Culture - Final Staphylococcus aureus Laboratory Tests Past 24 Hrs 08/24/17 08/24/17 08/25/17 07:45 10:25 05:20 WBC 22.2 H RBC 3.92 L Hgb 11.4 L Hct 36.1 L MCV 92.1 MCH 29.1 MCHC 31.6 L RDW 17.2 H RDW Differential 56.7 H Plt Count 176 MPV 10.1 Immature Gran % (Auto) 0.300 Neut % (Auto) 87.1 H Lymph % (Auto) 5.0 L Andrews % (Auto) 6.9 Eos % (Auto) 0.5 Baso % (Auto) 0.2 Absolute Neuts (auto) 19.4 H Absolute Lymphs (auto) 1.10 Total Counted Not Reportable Differential Comment SCANNED Diff Path Review May foll PT INR Sodium Potassium Chloride Carbon Dioxide Anion Gap BUN Creatinine Est GFR (MDRD) Af Amer Est GFR (MDRD) Non-Af BUN/Creatinine Ratio Glucose Lactic Acid 0.6 Calcium Troponin I 0.26 H 08/25/17 08/25/17 05:20 05:20 WBC RBC Hgb Hct MCV MCH MCHC RDW RDW Differential Plt Count MPV Immature Gran % (Auto) Neut % (Auto) Lymph % (Auto) Andrews % (Auto) Eos % (Auto) Baso % (Auto) Absolute Neuts (auto) Absolute Lymphs (auto) Total Counted Differential Comment Diff Path Review PT 21.3 H INR 1.8 Sodium Pending Potassium Pending Chloride Pending Carbon Dioxide Pending Anion Gap Pending BUN Pending Creatinine Pending Est GFR (MDRD) Af Amer Pending Est GFR (MDRD) Non-Af Pending BUN/Creatinine Ratio Pending Glucose Pending Lactic Acid Calcium Pending Troponin I Medical Necessity - Tobacco Use Smoking Status: Former smoker Assessment/Plan Active and Suspected Problems (Last Updated 08/24/17 @ 07:58 by Dwight Bhardwaj MD) Atrial fibrillation with RVR (Acute) Sepsis (Acute) Supratherapeutic INR (Acute) This is a 57 years old male patient presented to the emergency room because of chest pain, developed a fever after admission and he was found to have staphylococcal bacteremia, severe sepsis, A. fib with RVR, borderline elevated troponin which is chronic and Coumadin induced coagulopathy. #1 severe sepsis: This is likely because of bacteremia. He is on IV vancomycin and Zosyn. Chest x-ray showed bilateral basilar atelectasis with small effusion, no acute infiltrate. Pneumonia is unlikely. Lactic acid is back to normal. Initial blood culture revealed MSSA. Repeat blood cultures pending. Infectious disease consulted awaiting their recommendations. Plan: Continue same treatment. #2 MSSA bacteremia: Source of bacteremia is probably the dialysis site which is the AV fistula. Patient is on IV vancomycin and Zosyn as above. He is afebrile, white blood cell count is trending down. Repeat blood cultures pending. plan as above. #3 atypical chest pain/chronically borderline elevated troponin: He has no more pain.. EKG reveals no acute ischemic changes. Troponin is borderline elevated and flat and this is chronic likely because of ESRD. No indication for further cardiac workup. #4 Coumadin induced coagulopathy: INR was 4.6, received 1 dose of vitamin K 2.5 mg and his INR is 1.8. Patient had an episode of epistaxis yesterday, stopped spontaneously. Hemoglobin and hematocrit are stable. Plan to resume Coumadin tonight, no bridging. #5 A. fib with RVR: On IV amiodarone drip as well as metoprolol, converted back to sinus rhythm and his heart rate has been in the 60s. Yesterday after I saw the patient, heart rate was in the 120s and did not respond to as needed IV metoprolol. Later, he was started on amiodarone drip because his blood pressure was borderline. Today's INR is 1.8, plan to resume Coumadin as above. Cardiology consulted. #6 ESRD on hemodialysis: Nephrology consulted, he received 2 hours of hemodialysis yesterday which was discontinued because of A. fib with RVR. BMP from today is pending. #7 paroxysmal atrial fibrillation: He is back to sinus rhythm with IV amiodarone drip, plan as above. #8 COPD/chronic respiratory failure: Has been stable, pulse ox has been around 99% on 2 L. Chest x-ray showed no acute findings. Continue DuoNeb every 6 hours and albuterol as needed. #9 hypertension: Blood pressure stable, continue lisinopril and metoprolol. #10 chronic systolic CHF status post ICD: At this time, no evidence of acute CHF. Clinically stable. Continue lisinopril and metoprolol. #11 sick sinus syndrome status post dual-chamber pacemaker: Back to sinus rhythm, stable. #12 DVT prophylaxis: INR is 1.8. This note was generated with [employer] dictation software. It may contain incorrect words, spelling, and punctuation that were not noted in checking the note before signing. Code Visit Inpatient E&M: 08983 Subs Hosp L2
[2017-08-25 08:18] LABS: Anion Gap 11 (5-15); BUN 54 mg/dL (7-18); BUN/Creat Ratio 8.8 RATIO (10-20); Calcium,Total 7.3 mg/dL (8.5-10.1); Chloride 95 mmol/L (98-107); Creatinine, Serum 6.11 mg/dL (0.70-1.30); EST Glomerular Filtration Rate 10 mL/min (>60); Est Glom Filt Rate - Afr Amer 12 mL/min (>60); Estimated Creatinine Clearance 11.28 ml/min; Glucose 172 mg/dL (74-106); Potassium 4.3 mmol/L (3.5-5.1); Sodium Level 132 mmol/L (136-145)
[2017-08-25] MEDS: Folic Acid/Vitamin B Comp W-C 1 Capsule 1 CAP PO (09:52)
[2017-08-25] MEDS: Cinacalcet HCl 30 MG Tablet PO (09:52)
[2017-08-25] MEDS: Pantoprazole Sodium 20 MG Tablet PO (09:52)
[2017-08-25] MEDS: Metoprolol(XL)Succ 100 MG Tablet PO ×2 (09:52→21:53)
[2017-08-25] MEDS: hydrOXYzine PAM 25 MG Capsule 50 MG PO (10:14)
--- NOTE | 2017-08-25 10:14 | CON.PCM_ITS ---
Reason for Consult Date of Consultation: 08/25/17 Reason for Consultation: Irregular heartbeat and chest pain. History of Present Illness: The patient is a 57 year old M with a history of nonischemic cardiomyopathy paroxysmal atrial fibrillation end-stage renal disease on dialysis status post defibrillator implantation who started experiencing some palpitations as well as mild chest discomfort. He was brought into the hospital he was noted to be in atrial fibrillation with rapid ventricular response rate and also noted to be febrile. Cardiology was initially consulted and medical management with the beta-rosemarie was advised but it appears he continued to be in atrial fibrillation with rapid ventricular response rate and mildly hypotensive he was started on amiodarone with improvement in his heart rate. Currently he denies any chest pain or shortness breath or paroxysmal nocturnal dyspnea pedal edema he has had no dizziness no diaphoresis he has had some nosebleeds. He has had repeated admissions to the hospital for the same. [] Past Medical History Allergies/Adverse Reactions: Allergies disopyramide [From Norpace] Adverse Reaction (Severe, Verified 08/23/17 07:45) Unknown onion Adverse Reaction (Severe, Verified 08/23/17 07:45) Unknown sotalol Adverse Reaction (Severe, Verified 08/23/17 07:45) Unknown quinaglute Adverse Reaction (Severe, Uncoded 08/23/17 07:45) Unknown Home Medications: Ambulatory Orders Medication Instructions Recorded Acetaminophen [Tylenol] 1,000 mg PO Q4H PRN PRN 05/17/15 Calcium Acetate [Phoslo Gel Cap] 1 cap PO TIDCM 05/17/15 Lisinopril [Zestril] 20 mg PO DAILY 05/17/15 Cinacalcet HCl [Sensipar] 30 mg PO DAILY 09/08/15 Omeprazole 20 mg PO BID 02/05/17 Folic Acid/Vit Bcomp,C [Renal-Miguel Angel 0.8 mg PO DAILY 05/22/17 Tablet] Hydroxyzine Pamoate 50 mg PO BID 05/22/17 ondansetron HCl 4 mg tablet 4 mg PO Q8H PRN tab 06/20/17 tramadol 50 mg tablet 50 mg PO PRN PRN tab 06/20/17 albuterol sulfate HFA 90 1 puff INHALATION Q4H PRN PRN #1 07/16/17 mcg/actuation aerosol inhaler device Metoprolol(XL)Succ [Toprol Xl 100 mg PO BID 08/23/17 (Beta Rosemarie)] Oxycodone HCl/Acetaminophen 1 tablet PO Q4H PRN PRN 08/23/17 [Percocet 5/325] Warfarin [Coumadin] 4 mg PO DAILY@1700 08/23/17 Past Medical History (Chronic Problems): Chronic Problems (Last Updated 08/24/17 @ 07:58 by Dwight Bhardwaj MD) Cardiac pacemaker in situ (Chronic) Dual-chamber ICD implanted 12/07/15 at [facility]; Sick sinus syndrome (Chronic) S/P dual-chamber Pacemaker/ICD ESRD (end stage renal disease) (Chronic) HTN (hypertension) (Chronic) PAF (paroxysmal atrial fibrillation) (Chronic) Pulmonary HTN (Chronic) Anemia with chronic illness (Chronic) Non-compliance (Chronic) non-compliant with meds and with dialysis Non-compliance with renal dialysis (Chronic) Respiratory failure with hypoxia (Chronic) Bilateral pleural effusion (Chronic) High-grade atrioventricular block (Chronic) Cardiomyopathy (Chronic) Ulcer of foot (Chronic) Supplemental oxygen dependent (Chronic) CHF (congestive heart failure) (Chronic) Coronary artery arteriosclerosis (Chronic) Parathyroid disease (Chronic) COPD (chronic obstructive pulmonary disease) (Chronic) History of nephrectomy (Chronic) History of kidney cancer (Chronic) Chest pain (Chronic) Surgical History: - - AVF placement PAIGE, left nephrectomy for cancer, cardiac defibrillator placement in 2015. Right inguinal hernia repair in the remote past. - *Family History Maternal History Items: No pertinent history, - - Patient's mother at age of 73 with a history of end-stage renal failure. Paternal History Items: Renal Disease, - - The patient's mother at age of 69 with a history of kidney cancer. Smoking Status: Former smoker Alcohol: None Drugs: None Review of Systems - Review of Systems General: Reports: Fatigue. Denies: Fever, Night Sweats Cardiovascular: Reports: Chest Discomfort at Rest, Palpitations. Denies: Chest Discomfort, Shortness of Breath, Orthopnea, PND, Peripheral Edema, Lightheadedness, Dizziness, Near Syncope, Syncope Respiratory: Denies: Cough, Sputum Production, Hemoptysis Gastrointestinal: Denies: Hematemesis, Hematochezia, Melena Genitourinary: Denies: Dysuria, Hematuria Skin: Denies: Rash Subjectve: A gentleman in no distress Objective: Vital Signs Temp Pulse Resp BP Pulse Ox 97.0 F L 60 16 103/68 99 08/25/17 07:00 08/25/17 09:00 08/25/17 09:00 08/25/17 09:00 08/25/17 09:00 Oxygen Flow Rate (L/min) 2 Oxygen Delivery Method Nasal Cannula Weight: 133 lb 6.075 oz Body Mass Index (BMI) 20.7 Intake and Output for Last 24 Hours 08/23/17 08/24/17 08/25/17 23:59 23:59 23:59 Intake Total 662 / 662 1122 / 1122 120 / 120 Output Total 0 / 0 0 / 0 Balance 662 / 662 1122 / 1122 120 / 120 General: Alert, Oriented x 3, Ill Appearing HEENT: PERRL, EOMI, Sclera Non Icteric Neck: Supple, Good ROM, No Lymph Node Enlargement Lungs: Clear to auscultation Cardiovascular: Regular Rhythm, Normal S1, Normal S2, No Murmurs, No Rubs, No Gallops Vascular: No Carotid Bruits, Normal Femoral Pulses, Normal Radial Pulses, Normal Dorsalis Pedal Pulse, Normal Posterior Tibial Pulses Abdomen: Bowel Sounds Present, Soft, Non Tender, No HSM, No Organomegaly Extremities: No Cyanosis, No Clubbing, No edema Neurological: No Focal Motor or Sensory Deficit 08/24/17 10:25: Lactic Acid 0.6 08/25/17 05:20: WBC 22.2 H, RBC 3.92 L, Hgb 11.4 L, Hct 36.1 L, MCV 92.1, MCH 29.1, MCHC 31.6 L, RDW 17.2 H, RDW Differential 56.7 H, Plt Count 176, MPV 10.1 , Immature Gran % (Auto) 0.300, Neut % (Auto) 87.1 H, Lymph % (Auto) 5.0 L, [place] % (Auto) 6.9, Eos % (Auto) 0.5, Baso % (Auto) 0.2, Absolute Neuts (auto) 19.4 H, Total Counted Not Reportable 08/25/17 05:20: PT 21.3 H, INR 1.8 08/25/17 05:20: Sodium 132 L, Potassium 4.3, Chloride 95 L, Carbon Dioxide 26.0 , Anion Gap 11, BUN 54 H, Creatinine 6.11 H, Est GFR (MDRD) Af Amer 12 L, Est GFR (MDRD) Non-Af 10 L, BUN/Creatinine Ratio 8.8 L, Glucose 172 H, Calcium 7.3 L Rhythm: EKG: AV sequential pacing ECHO: Stress Test: Cardiac Cath: PCI: CT Surgery: Holter monitor: EPS: PPM: CXR: Chest CT Scan: Assessment/Plan 1. Atrial fibrillation with rapid ventricular response rate. The above appears to be paroxysmal. He has successfully converted back to sinus rhythm on the current medical regimen using the amiodarone. My plan is to let him finish the intravenous amiodarone and then will start him on oral amiodarone to hopefully prevent him from having recurrence of these events. He will be transitioned to amiodarone 200 mg twice a day for 2 weeks and then 200 mg once a day. He has previously had a supratherapeutic INR and we will continue to monitor this closely. 2. Chest pain. He does have no previously documented obstructive coronary disease. His cardiac enzymes remain otherwise unremarkable. At this time I do not think that there are any plans to invasive really evaluate him or to perform any stress testing. We will continue to manage him medically. 3. Nonischemic cardiomyopathy. His last echocardiogram in March 2017 demonstrated an ejection fraction of approximately 30% with a dilated ventricle. He will continue on his KAROL inhibitor as well as his beta-rosemarie. No further evaluation will be undertaken at this time. 4. Hypertension His blood pressure appears to be marginal at this time. We will continue to treat his blood pressure with the beta-rosemarie and lisinopril titrating it with his blood pressures. 5. Status post ICD implantation. His ICD continues to be checked through our office and he has not noted any defibrillator discharges and we will continue to monitor him. He has had some periods of atrial flutter with rapid ventricular response rate in the amiodarone would be instituted to help with this. 6. Congestive heart failure He does have evidence of systolic heart failure with his diuresis being managed through his dialysis. We will continue to attempt to get him closer to his dry weight. Thank you for allowing me to participate in the care of your patient. Please don't hesitate to call if any issues arise
[2017-08-25] MEDS: Lisinopril 10 MG Tablet 20 MG PO (14:09)
[2017-08-25] MEDS: oxyCODONE 5 MG Tablet PO (16:05)
[2017-08-25] MEDS: Calcium Acetate 667 MG Capsule PO (16:06)
[2017-08-25] MEDS: Amiodarone 200 MG Tablet PO (21:53)
[2017-08-25] MEDS: Zolpidem Tartrate 5 MG Tablet PO (22:14)
[2017-08-26] VITALS (12 sets, daily range): BP systolic 107–163; BP diastolic 62–77; PULSE 59–63; RESP 16–20; TEMP 36.2–36.9; O2SAT 97–100
[2017-08-26] MEDS: DiphenhydrAMINE 25 MG Capsule 50 MG PO (03:20)
[2017-08-26] MEDS: oxyCODONE 5 MG Tablet PO ×2 (05:34→17:30)
[2017-08-26 05:50] LABS: Absolute Neutrophil Count 16.6 X10^3/uL (2.0-7.7); Basophil# 0.11 X10^3/uL; Basophil% 0.6 % (0-1); Eosinophil# 0.37 X10^3/uL; Eosinophils% 1.9 % (0-5); Hemoglobin 11.1 g/dl (13.0-16.5); Lymphocyte % 7.5 % (19-41); Mean Corp Hgb Conc 32.6 g/gl (32-36); Mean Corpuscular Hgb 29.1 pg (27.0-32.0); Mean Corpuscular Volume 89.2 fL (80-94); Mean Platelet Vol. 9.5 fl (6.2-12.0); Monocyte# 1.34 X10^3/uL; Monocyte% 6.7 % (0-10); Neutrophil # 16.57 X10^3/uL (2.7-7.7); Neutrophil % 82.9 % (47-70); Platelet Count 202 K/mm3 (150-450); RBC Distribution Width CV 16.9 % (11.6-14.6); RBC Distribution Width SD 54.3 fl (35.1-43.9); Red Blood Count 3.81 M/mm3 (4.6-6.2)
[2017-08-26 06:08] LABS: Anion Gap 13 (5-15); BUN 64 mg/dL (7-18); BUN/Creat Ratio 9.1 RATIO (10-20); Calcium,Total 8.8 mg/dL (8.5-10.1); Chloride 91 mmol/L (98-107); Creatinine, Serum 7.03 mg/dL (0.70-1.30); EST Glomerular Filtration Rate 9 mL/min (>60); Est Glom Filt Rate - Afr Amer 10 mL/min (>60); Glucose 78 mg/dL (74-106); Potassium 4.5 mmol/L (3.5-5.1); Sodium Level 132 mmol/L (136-145)
[2017-08-26 06:12] LABS: International Normalized Ratio 1.3; Prothrombin Time (Protime)PT. 16.1 SECONDS (11.7-14.9)
[2017-08-26 06:22] LABS: POSITIVE COUNT NO; POSITIVE DIFFERENTIAL NO; POSITIVE MORPHOLOGY NO
--- NOTE | 2017-08-26 06:58 | PN.CARD_ITS ---
Subjectve: Patient seen and evaluated. Sleeping. Objective: Vital Signs Temp Pulse Resp BP Pulse Ox 98.5 F 61 20 H 134/64 H 98 08/26/17 03:00 08/26/17 03:00 08/26/17 03:00 08/26/17 03:00 08/26/17 03:00 Oxygen Flow Rate (L/min) 2 Oxygen Delivery Method Nasal Cannula Weight: 134 lb 0.657 oz Body Mass Index (BMI) 20.7 Intake and Output for Last 24 Hours 08/24/17 08/25/17 08/26/17 23:59 23:59 23:59 Intake Total 1122 / 1122 1190 / 1190 694.3 / 694.3 Output Total 0 / 0 Balance 1122 / 1122 1190 / 1190 694.3 / 694.3 General: Awake, Alert, Oriented x 3 HEENT: PERRL, EOMI, Sclera Non Icteric Neck: Supple, Good ROM, No Lymph Node Enlargement Lungs: Clear to auscultation Cardiovascular: Regular Rhythm, Normal S1, Normal S2, No Murmurs, No Rubs, No Gallops Vascular: No Carotid Bruits, Normal Femoral Pulses, Normal Radial Pulses, Normal Dorsalis Pedal Pulse, Normal Posterior Tibial Pulses Abdomen: Bowel Sounds Present, Soft, Non Tender, No HSM, No Organomegaly Extremities: No Cyanosis, No Clubbing, No edema Neurological: No Focal Motor or Sensory Deficit 08/25/17 05:20: Sodium 132 L, Potassium 4.3, Chloride 95 L, Carbon Dioxide 26.0 , Anion Gap 11, BUN 54 H, Creatinine 6.11 H, Est GFR (MDRD) Af Amer 12 L, Est GFR (MDRD) Non-Af 10 L, BUN/Creatinine Ratio 8.8 L, Glucose 172 H, Calcium 7.3 L 08/26/17 05:10: WBC 20.0 H, RBC 3.81 L, Hgb 11.1 L, Hct 34.0 L, MCV 89.2, MCH 29.1, MCHC 32.6, RDW 16.9 H, RDW Differential 54.3 H, Plt Count 202, MPV 9.5, Immature Gran % (Auto) 0.400, Neut % (Auto) 82.9 H, Lymph % (Auto) 7.5 L, Wheeler % (Auto) 6.7, Eos % (Auto) 1.9, Baso % (Auto) 0.6, Absolute Neuts (auto) 16.6 H , Total Counted Not Reportable 08/26/17 05:10: PT 16.1 H, INR 1.3 08/26/17 05:10: Sodium 132 L, Potassium 4.5, Chloride 91 L, Carbon Dioxide 28.0 , Anion Gap 13, BUN 64 H, Creatinine 7.03 H, Est GFR (MDRD) Af Amer 10 L, Est GFR (MDRD) Non-Af 9 L, BUN/Creatinine Ratio 9.1 L, Glucose 78, Calcium 8.8 Rhythm: EKG: ECHO: Stress Test: Cardiac Cath: PCI: CT Surgery: Holter monitor: EPS: PPM: CXR: Chest CT Scan: Medical Necessity - Tobacco Use Smoking Status: Former smoker Assessment/Plan 1. Atrial fibrillation with rapid ventricular response rate. The above appears to be paroxysmal. He has successfully converted back to sinus rhythm on the current medical regimen using the amiodarone. He will be transitioned to amiodarone 200 mg twice a day for 2 weeks and then 200 mg once a day. He has previously had a supratherapeutic INR and we will continue to monitor this closely. 2. Chest pain. He does have no previously documented obstructive coronary disease. His cardiac enzymes remain otherwise unremarkable. At this time I do not think that there are any plans to invasive really evaluate him or to perform any stress testing. We will continue to manage him medically. 3. Nonischemic cardiomyopathy. His last echocardiogram in March 2017 demonstrated an ejection fraction of approximately 30% with a dilated ventricle. He will continue on his KAROL inhibitor as well as his beta-michael. No further evaluation will be undertaken at this time. 4. Hypertension His blood pressure appears to be marginal at this time. We will continue to treat his blood pressure with the beta-michael and lisinopril titrating it with his blood pressures. 5. Status post ICD implantation. His ICD continues to be checked through our office and he has not noted any defibrillator discharges and we will continue to monitor him. He has had some periods of atrial flutter with rapid ventricular response rate in the amiodarone would be instituted to help with this. 6. Congestive heart failure He does have evidence of systolic heart failure with his diuresis being managed through his dialysis. We will continue to attempt to get him closer to his dry weight. Thank you for allowing me to participate in the care of your patient. Please don't hesitate to call if any issues arise
--- NOTE | 2017-08-26 08:05 | PN_ITS ---
Patient Problems: Active and Suspected Problems (Last Updated 08/24/17 @ 07:58 by Dwight Bhardwaj MD) Atrial fibrillation with RVR (Acute) Sepsis (Acute) Supratherapeutic INR (Acute) Subjective: Chief complaint: Follow-up after admission for chest pain with chronically borderline elevated troponin, severe sepsis, A. fib with RVR and bacteremia. Patient seen and examined. No acute events overnight. He has nonspecific complaints of low back pain and bilateral leg pain which are chronic. He denies any more chest pain. His vital signs are stable. Heart rate has been in the 60s, stable. - Physical Exam General: Alert, Oriented x3, Cooperative, No apparent distress HEENT: Atraumatic, PERRLA, EOMI Oral: Moist Mucosa, No Gingival or Mucosal Lesions/ Ulcerations Neck: Supple, No JVD, Negative Carotid Bruits, Trachea Midline, Thyroid Normal Size and Texture Lungs: Clear to auscultation, No rhonchi, No wheeze, No rales, Diminished Cardiovascular: Regular rate, Regular Rhythm, Normal S1, Normal S2, PMI Normal Abdomen: Bowel Sounds Present, Soft, Non Tender, Non-Distended, No Hepato- splenomegaly Extremities: No clubbing, No cyanosis, No edema Skin: No rashes, No breakdown Lymphatic: No Cervical, Supraclavicular, or Inguinal Adenopathy Neurological: Cranial nerves II-XII grossly intact, Neuro grossly intact Psych/Mental Status: Flat Affect Vital Signs Temp Pulse Resp BP Pulse Ox 98.5 F 60 20 H 134/64 H 98 08/26/17 03:00 08/26/17 06:49 08/26/17 03:00 08/26/17 03:00 08/26/17 03:00 Oxygen Flow Rate (L/min) 2 Oxygen Delivery Method Nasal Cannula Weight: 134 lb 0.657 oz Body Mass Index (BMI) 20.7 Intake and Output for Last 24 Hours 08/24/17 08/25/17 08/26/17 23:59 23:59 23:59 Intake Total 1122 / 1122 1190 / 1190 694.3 / 694.3 Output Total 0 / 0 Balance 1122 / 1122 1190 / 1190 694.3 / 694.3 Microbiology Past 72 Hours 08/25/17 05:20 Blood Culture - Preliminary Blood Culture (Wb) - Right Hand Staphylococcus aureus 08/25/17 05:20 Bacteria Detection (PCR) - Final Blood Culture (Wb) - Arm Right Staphylococcus aureus Blood Culture - Preliminary Staphylococcus aureus 08/24/17 05:45 Blood Culture - Preliminary Blood Culture (Wb)#3 - Right Hand Staphylococcus aureus 08/24/17 05:40 Blood Culture - Preliminary Blood Culture (Wb)#3 - Right Hand Staphylococcus aureus 08/23/17 09:44 Blood Culture - Final Blood Culture (Wb) - Right Wrist Staphylococcus aureus 08/23/17 09:35 Bacteria Detection (PCR) - Final Blood Culture (Wb) - Right Hand Staphylococcus aureus Blood Culture - Final Staphylococcus aureus Laboratory Tests Past 24 Hrs 08/25/17 08/26/17 08/26/17 05:20 05:10 05:10 WBC 20.0 H RBC 3.81 L Hgb 11.1 L Hct 34.0 L MCV 89.2 MCH 29.1 MCHC 32.6 RDW 16.9 H RDW Differential 54.3 H Plt Count 202 MPV 9.5 Immature Gran % (Auto) 0.400 Neut % (Auto) 82.9 H Lymph % (Auto) 7.5 L [place] % (Auto) 6.7 Eos % (Auto) 1.9 Baso % (Auto) 0.6 Absolute Neuts (auto) 16.6 H Absolute Lymphs (auto) 1.50 Total Counted Not Reportable PT INR Sodium 132 L Potassium 4.3 Chloride 95 L Carbon Dioxide 26.0 Anion Gap 11 BUN 54 H Creatinine 6.11 H Estim Creat Clear Calc 11.28 Est GFR (MDRD) Af Amer 12 L Est GFR (MDRD) Non-Af 10 L BUN/Creatinine Ratio 8.8 L Glucose 172 H Calcium 7.3 L Random Vancomycin 17.0 H 08/26/17 08/26/17 05:10 05:10 WBC RBC Hgb Hct MCV MCH MCHC RDW RDW Differential Plt Count MPV Immature Gran % (Auto) Neut % (Auto) Lymph % (Auto) [place] % (Auto) Eos % (Auto) Baso % (Auto) Absolute Neuts (auto) Absolute Lymphs (auto) Total Counted PT 16.1 H INR 1.3 Sodium 132 L Potassium 4.5 Chloride 91 L Carbon Dioxide 28.0 Anion Gap 13 BUN 64 H Creatinine 7.03 H Estim Creat Clear Calc 9.80 Est GFR (MDRD) Af Amer 10 L Est GFR (MDRD) Non-Af 9 L BUN/Creatinine Ratio 9.1 L Glucose 78 Calcium 8.8 Random Vancomycin Medical Necessity - Tobacco Use Smoking Status: Former smoker Assessment/Plan Active and Suspected Problems (Last Updated 08/24/17 @ 07:58 by Dwight Bhardwaj MD) Atrial fibrillation with RVR (Acute) Sepsis (Acute) Supratherapeutic INR (Acute) This is a 57 years old male patient presented to the emergency room because of chest pain, developed a fever after admission and he was found to have staphylococcal bacteremia, severe sepsis, A. fib with RVR, borderline elevated troponin which is chronic and Coumadin induced coagulopathy. #1 severe sepsis: This is likely because of bacteremia. He is on IV vancomycin and Zosyn. Vital signs are stable, remained afebrile. White blood cell count is trending down. chest x-ray showed bilateral basilar atelectasis with small effusion, no acute infiltrate. Pneumonia is unlikely. Lactic acid is back to normal. Plan: Continue same treatment. #2 MSSA bacteremia: Source of bacteremia is probably the dialysis site which is the AV fistula. Patient is on IV vancomycin and Zosyn as above. He is afebrile, white blood cell count is trending down. Repeat blood culture also showing Staphylococcus aureus, final result is pending. Infectious disease consulted, awaiting their recommendations. #3 atypical chest pain/chronically borderline elevated troponin: He has no more pain.. EKG reveals no acute ischemic changes. Troponin is borderline elevated and flat and this is chronic likely because of ESRD. No indication for further cardiac workup. #4 Coumadin induced coagulopathy: INR was 4.6, received 1 dose of vitamin K 2.5 mg. Today's INR is 1.3, subtherapeutic. He is back on Coumadin since yesterday. Plan to repeat INR tomorrow. #5 A. fib with RVR: Remained in sinus rhythm, heart rate stable. He is on oral amiodarone and metoprolol. He is back on Coumadin, INR subtherapeutic, plan as above. #6 ESRD on hemodialysis: Nephrology consulted, he will continue dialysis on his regular days. #7 paroxysmal atrial fibrillation: Back to sinus rhythm, rate stable. He is on oral amiodarone and metoprolol. #8 COPD/chronic respiratory failure: Has been stable, pulse ox has been around 99% on 2 L. Chest x-ray showed no acute findings. Continue DuoNeb every 6 hours and albuterol as needed. #9 hypertension: Blood pressure stable, continue lisinopril and metoprolol. #10 chronic systolic CHF status post ICD: At this time, no evidence of acute CHF. Clinically stable. Continue lisinopril and metoprolol. #11 sick sinus syndrome status post dual-chamber pacemaker: Back to sinus rhythm , stable. #12 DVT prophylaxis: INR is 1.3. This note was generated with [employer] dictation software. It may contain incorrect words, spelling, and punctuation that were not noted in checking the note before signing. Code Visit Inpatient E&M: 38853 Subs Hosp L2
--- NOTE | 2017-08-26 11:25 | CON.PCM_ITS ---
Problem List (1) MSSA bacteremia Status: Acute Reason for Consult: bacteremia Consulted by: Dr. Bhardwaj History of Present Illness: The patient is a 57 year old M with ESRD and ICD placement who presented 08/23 with several days of fever, chills, whole body aches. No recent abx, no recent skin infections, no issues with LUE fistula. Denies any h/o MRSA. No new joint pain. Has chronic back pain, unchanged. No recent changes from R chest ICD; no drainage or redness. Admitted, on vanc/zosyn, feeling a little better. Gets HD MWF. Full ROS performed and neg except as noted above. - Medical History Past Medical History (Chronic Problems): Chronic Problems (Last Updated 08/24/17 @ 07:58 by Dwight Bhardwaj MD) Cardiac pacemaker in situ (Chronic) Dual-chamber ICD implanted 12/07/15 at [facility]; Sick sinus syndrome (Chronic) S/P dual-chamber Pacemaker/ICD ESRD (end stage renal disease) (Chronic) HTN (hypertension) (Chronic) PAF (paroxysmal atrial fibrillation) (Chronic) Pulmonary HTN (Chronic) Anemia with chronic illness (Chronic) Non-compliance (Chronic) non-compliant with meds and with dialysis Non-compliance with renal dialysis (Chronic) Respiratory failure with hypoxia (Chronic) Bilateral pleural effusion (Chronic) High-grade atrioventricular block (Chronic) Cardiomyopathy (Chronic) Ulcer of foot (Chronic) Supplemental oxygen dependent (Chronic) CHF (congestive heart failure) (Chronic) Coronary artery arteriosclerosis (Chronic) Parathyroid disease (Chronic) COPD (chronic obstructive pulmonary disease) (Chronic) History of nephrectomy (Chronic) History of kidney cancer (Chronic) Chest pain (Chronic) Allergies/Adverse Reactions: Allergies disopyramide [From Norpace] Adverse Reaction (Severe, Verified 08/23/17 07:45) Unknown onion Adverse Reaction (Severe, Verified 08/23/17 07:45) Unknown sotalol Adverse Reaction (Severe, Verified 08/23/17 07:45) Unknown quinaglute Adverse Reaction (Severe, Uncoded 08/23/17 07:45) Unknown Home Medications: Ambulatory Orders Medication Instructions Recorded Acetaminophen [Tylenol] 1,000 mg PO Q4H PRN PRN 05/17/15 Calcium Acetate [Phoslo Gel Cap] 1 cap PO TIDCM 05/17/15 Lisinopril [Zestril] 20 mg PO DAILY 05/17/15 Cinacalcet HCl [Sensipar] 30 mg PO DAILY 09/08/15 Omeprazole 20 mg PO BID 02/05/17 Folic Acid/Vit Bcomp,C [Renal-Miguel Angel 0.8 mg PO DAILY 05/22/17 Tablet] Hydroxyzine Pamoate 50 mg PO BID 05/22/17 ondansetron HCl 4 mg tablet 4 mg PO Q8H PRN tab 06/20/17 tramadol 50 mg tablet 50 mg PO PRN PRN tab 06/20/17 albuterol sulfate HFA 90 1 puff INHALATION Q4H PRN PRN #1 07/16/17 mcg/actuation aerosol inhaler device Metoprolol(XL)Succ [Toprol Xl 100 mg PO BID 08/23/17 (Beta Rosemarie)] Oxycodone HCl/Acetaminophen 1 tablet PO Q4H PRN PRN 08/23/17 [Percocet 5/325] Warfarin [Coumadin] 4 mg PO DAILY@1700 08/23/17 - Social History SMOKING STATUS:: Former smoker Vital Signs Temp Pulse Resp BP Pulse Ox 97.1 F L 59 L 18 129/75 H 100 08/26/17 09:00 08/26/17 09:00 08/26/17 09:00 08/26/17 09:00 08/26/17 09:00 Oxygen Flow Rate (L/min) 2 Oxygen Delivery Method Nasal Cannula Weight: 60.8 kg Body Mass Index (BMI) 20.7 Microbiology Past 72 Hours 08/25/17 05:20 Blood Culture - Preliminary Blood Culture (Wb) - Right Hand Staphylococcus aureus 08/25/17 05:20 Bacteria Detection (PCR) - Final Blood Culture (Wb) - Arm Right Staphylococcus aureus Blood Culture - Preliminary Staphylococcus aureus 08/24/17 05:45 Blood Culture - Preliminary Blood Culture (Wb)#3 - Right Hand Staphylococcus aureus 08/24/17 05:40 Blood Culture - Preliminary Blood Culture (Wb)#3 - Right Hand Staphylococcus aureus 08/23/17 09:44 Blood Culture - Final Blood Culture (Wb) - Right Wrist Staphylococcus aureus 08/23/17 09:35 Bacteria Detection (PCR) - Final Blood Culture (Wb) - Right Hand Staphylococcus aureus Blood Culture - Final Staphylococcus aureus Laboratory Tests Past 24 Hrs 0408/26/17 08/26/17 05:10 05:10 05:10 WBC 20.0 H RBC 3.81 L Hgb 11.1 L Hct 34.0 L MCV 89.2 MCH 29.1 MCHC 32.6 RDW 16.9 H RDW Differential 54.3 H Plt Count 202 MPV 9.5 Immature Gran % (Auto) 0.400 Neut % (Auto) 82.9 H Lymph % (Auto) 7.5 L [place] % (Auto) 6.7 Eos % (Auto) 1.9 Baso % (Auto) 0.6 Absolute Neuts (auto) 16.6 H Absolute Lymphs (auto) 1.50 Total Counted Not Reportable PT 16.1 H INR 1.3 Sodium Potassium Chloride Carbon Dioxide Anion Gap BUN Creatinine Estim Creat Clear Calc Est GFR (MDRD) Af Amer Est GFR (MDRD) Non-Af BUN/Creatinine Ratio Glucose Calcium Random Vancomycin 17.0 H 08/26/17 05:10 WBC RBC Hgb Hct MCV MCH MCHC RDW RDW Differential Plt Count MPV Immature Gran % (Auto) Neut % (Auto) Lymph % (Auto) [place] % (Auto) Eos % (Auto) Baso % (Auto) Absolute Neuts (auto) Absolute Lymphs (auto) Total Counted PT INR Sodium 132 L Potassium 4.5 Chloride 91 L Carbon Dioxide 28.0 Anion Gap 13 BUN 64 H Creatinine 7.03 H Estim Creat Clear Calc 9.80 Est GFR (MDRD) Af Amer 10 L Est GFR (MDRD) Non-Af 9 L BUN/Creatinine Ratio 9.1 L Glucose 78 Calcium 8.8 Random Vancomycin - Other Studies Radiology: [] reviewed Other Studies: [] Route of nutrition/ use of supplements: [] Nutritional Intake: [] IV Site: [] Vega Catheter: [] - Physical Exam General: Alert, Oriented x3, Cooperative, No apparent distress HEENT: Atraumatic, PERRLA, EOMI Neck: Supple, No Nodes Lungs: Clear to auscultation, Normal air movement Cardiovascular: No murmurs, Irregular Rate Abdomen: Bowel Sounds Present, Soft, Non Tender, Non-Distended Extremities: No edema, Cyanosis - of both distal feet Skin: No rashes, - - no janeway/osler/splinter hemorrhages on hands or feet. IV Site: - - LUE fistula with no redness or pain. Musculoskeletal: No Tenderness to Palpation of Joints or Extremities - unable to palpate spine due to current HD Neurological: Cranial nerves II-XII grossly intact - Assessment/Plan Antibiotics: [] Assessment/Plan: [] Active and Suspected Problems (Last Updated 08/24/17 @ 07:58 by Dwight Bhardwaj MD) Atrial fibrillation with RVR (Acute) Sepsis (Acute) Supratherapeutic INR (Acute) Severe sepsis due to MSSA bacteremia with LUE fistula and R chest ICD in place - Improving temps, wbc, and lactate. Repeat bcx from fistula today. Narrow vanc/zosyn to cefazolin. Will order TTE and doppler of fistula. Given MSSA, likely will need BONIFACIO and device removal. D/w Dr. Gould, his equipment monitor phototypesetting. Thank you, will follow.
--- NOTE | 2017-08-26 14:06 | DIALYSIS ---
HD x 3.5 hours complete. Tolerated tx well. UF of 1300ml. Ran on 2k bath. Used upper left arm fistula. [place] removed post tx. Report was given to ERNST Alonso.
[2017-08-26] MEDS: Calcium Acetate 667 MG Capsule PO (14:27)
[2017-08-26] MEDS: Lisinopril 10 MG Tablet 20 MG PO (14:27)
[2017-08-26] MEDS: Pantoprazole Sodium 20 MG Tablet PO (14:28)
[2017-08-26] MEDS: Amiodarone 200 MG Tablet PO ×2 (14:28→21:39)
[2017-08-26] MEDS: Metoprolol(XL)Succ 100 MG Tablet PO ×2 (14:28→21:39)
[2017-08-26] MEDS: Cinacalcet HCl 30 MG Tablet PO (14:28)
[2017-08-26] MEDS: Folic Acid/Vitamin B Comp W-C 1 Capsule 1 CAP PO (14:29)
[2017-08-26] MEDS: Cefazolin 1 GM/50 ML BAG IV (14:29)
--- NOTE | 2017-08-26 16:04 | PCM.PN.BLA ---
Progress Note patient was seen on dialysis earlier today no complaints feels better since admission see orders/flowsheets breathing is ok MSSA bacteremia. abx as per ID now
[2017-08-26] MEDS: hydrOXYzine PAM 25 MG Capsule 50 MG PO (17:30)
[2017-08-27] MEDS: Zolpidem Tartrate 5 MG Tablet PO (00:24)
[2017-08-27 03:05] VITALS: PULSE 60
[2017-08-27 03:45] VITALS: BP 131/90; PULSE 60; RESP 18; TEMP 36.6; O2SAT 100
[2017-08-27 06:55] VITALS: PULSE 60
--- NOTE | 2017-08-27 07:51 | PCM.PN.CARD ---
Subjectve: Patient seen and evaluated. Objective: Vital Signs Temp Pulse Resp BP Pulse Ox 97.9 F 60 18 131/90 H 100 08/27/17 03:45 08/27/17 06:55 08/27/17 03:45 08/27/17 03:45 08/27/17 03:45 Oxygen Flow Rate (L/min) 2 Oxygen Delivery Method Nasal Cannula Weight: 137 lb 9.095 oz Body Mass Index (BMI) 20.7 Intake and Output for Last 24 Hours 08/25/17 08/26/17 08/27/17 23:59 23:59 23:59 Intake Total 1190 / 1190 1328.3 / 1328.3 354 / 354 Output Total 1300 / 1300 Balance 1190 / 1190 28.3 / 28.3 354 / 354 General: Ill Appearing HEENT: PERRL, EOMI, Sclera Non Icteric Neck: Supple, Good ROM, No Lymph Node Enlargement Lungs: Clear to auscultation Cardiovascular: Regular Rhythm, Normal S1, Normal S2, No Murmurs, No Rubs, No Gallops Vascular: No Carotid Bruits, Normal Femoral Pulses, Normal Radial Pulses, Normal Dorsalis Pedal Pulse, Normal Posterior Tibial Pulses Abdomen: Bowel Sounds Present, Soft, Non Tender, No HSM, No Organomegaly Extremities: No Cyanosis, No Clubbing, No edema Neurological: No Focal Motor or Sensory Deficit Rhythm: EKG: ECHO: Stress Test: Cardiac Cath: PCI: CT Surgery: Holter monitor: EPS: PPM: CXR: Chest CT Scan: Medical Necessity - Tobacco Use Smoking Status: Former smoker Assessment/Plan 1. Atrial fibrillation with rapid ventricular response rate. The above appears to be paroxysmal. He has successfully converted back to sinus rhythm on the current medical regimen using the amiodarone. He will be transitioned to amiodarone 200 mg twice a day for 2 weeks and then 200 mg once a day. He has previously had a supratherapeutic INR and we will continue to monitor this closely. 2. Chest pain. He does have no previously documented obstructive coronary disease. His cardiac enzymes remain otherwise unremarkable. At this time I do not think that there are any plans to invasive really evaluate him or to perform any stress testing. We will continue to manage him medically. 3. Nonischemic cardiomyopathy. His last echocardiogram in March 2017 demonstrated an ejection fraction of approximately 30% with a dilated ventricle. He will continue on his KAROL inhibitor as well as his beta-michael. No further evaluation will be undertaken at this time. 4. Hypertension His blood pressure appears to be marginal at this time. We will continue to treat his blood pressure with the beta-michael and lisinopril titrating it with his blood pressures. 5. Status post ICD implantation. His ICD continues to be checked through our office and he has not noted any defibrillator discharges and we will continue to monitor him. He has had some periods of atrial flutter with rapid ventricular response rate in the amiodarone would be instituted to help with this. 6. Congestive heart failure He does have evidence of systolic heart failure with his diuresis being managed through his dialysis. We will continue to attempt to get him closer to his dry weight. 7. Methicillin sensitive staph aureus infection. An echocardiogram performed yesterday did not demonstrate any significant valvular heart disease. However, after discussion with the ID physician he would strongly recommend at this time that the ICD be explanted. My recommendation would be to consider transfer to a tertiary care facility where such explantation can possibly take place and have him reevaluated by electrophysiology, and infectious disease. I would defer a BONIFACIO performance until then. Discussed further with hospitalist yesterday and further recommendations will be made. Thank you for allowing me to participate in the care of your patient. Please don't hesitate to call if any issues arise
[2017-08-27] MEDS: oxyCODONE 5 MG Tablet PO (07:58)
[2017-08-27 09:45] VITALS: BP 127/50; PULSE 60; RESP 16; TEMP 36.6; O2SAT 100
[2017-08-27 10:22] VITALS: BP 127/50; PULSE 60
[2017-08-27] MEDS: Cinacalcet HCl 30 MG Tablet PO (10:22)
[2017-08-27] MEDS: Amiodarone 200 MG Tablet PO (10:22)
[2017-08-27] MEDS: Metoprolol(XL)Succ 100 MG Tablet PO (10:22)
[2017-08-27] MEDS: Lisinopril 10 MG Tablet 20 MG PO (10:22)
[2017-08-27] MEDS: Folic Acid/Vitamin B Comp W-C 1 Capsule 1 CAP PO (10:22)
[2017-08-27] MEDS: Pantoprazole Sodium 20 MG Tablet PO (10:22)
[2017-08-27 11:07] VITALS: PULSE 60
[2017-08-27] MEDS: Cefazolin 1 GM/50 ML BAG IV (11:36)
[2017-08-27] MEDS: Calcium Acetate 667 MG Capsule PO (11:37)
--- NOTE | 2017-08-27 12:25 | HP.PCM_ITS ---
Problem List (1) Atrial fibrillation with RVR Status: Acute (2) MSSA bacteremia Status: Acute (3) Sepsis Status: Acute Qualifiers: Sepsis type: methicillin susceptible Staphylococcus aureus Qualified Code(s ): A41.01 - Sepsis due to Methicillin susceptible Staphylococcus aureus (4) Supratherapeutic INR Status: Acute (5) Implantable cardioverter-defibrillator (ICD) in situ Status: Chronic Comment: implanted in 12/07/2015 at [facility] (6) Anemia with chronic illness Status: Chronic Comment: ESRD (7) Bilateral pleural effusion Status: Chronic (8) CHF (congestive heart failure) Status: Chronic Qualifiers: Heart failure type: systolic Heart failure chronicity: acute on chronic Qualified Code(s): I50.23 - Acute on chronic systolic (congestive) heart failure Comment: EF 30% (9) COPD (chronic obstructive pulmonary disease) Status: Chronic (10) Cardiomyopathy Status: Chronic Qualifiers: (11) Chest pain Status: Chronic Qualifiers: (12) Coronary artery arteriosclerosis Status: Chronic (13) ESRD (end stage renal disease) Status: Chronic Comment: on HD (14) HTN (hypertension) Status: Chronic Qualifiers: Hypertension type: essential hypertension Qualified Code(s): I10 - Essential (primary) hypertension (15) History of kidney cancer Status: Chronic (16) History of nephrectomy Status: Chronic (17) Non-compliance Status: Chronic Comment: non-compliant with meds and with dialysis (18) Non-compliance with renal dialysis Status: Chronic (19) 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 (20) Pulmonary HTN Status: Chronic (21) Respiratory failure with hypoxia Status: Chronic Qualifiers: Chronicity: chronic Qualified Code(s): J96.11 - Chronic respiratory failure with hypoxia (22) Sick sinus syndrome Status: Chronic Comment: S/P dual-chamber Pacemaker/ICD (23) Supplemental oxygen dependent Status: Chronic (24) Ulcer of foot Status: Resolved Qualifiers: Laterality: right Non-pressure ulcer stage: with fat layer exposed Qualified Code(s): L97.512 - Non-pressure chronic ulcer of other part of right foot with fat layer exposed (25) Hyponatremia Status: Acute (26) Hyperkalemia Status: Resolved (27) Elevated troponin Status: Acute Comment: not trending (28) Mitral insufficiency Status: Chronic History of Present Illness Date of Admission: 08/27/17 Chief Complaint: palpitations and CP The patient is a 57 year old M [] Past Medical History Past Medical History (Chronic Problems): Chronic Problems (Last Updated 08/24/17 @ 07:58 by Dwight Bhardwaj MD) Mitral insufficiency (Chronic) Implantable cardioverter-defibrillator (ICD) in situ (Chronic) implanted in 12/07/2015 at [facility] [place] Sick sinus syndrome (Chronic) S/P dual-chamber Pacemaker/ICD ESRD (end stage renal disease) (Chronic) on HD HTN (hypertension) (Chronic) Pulmonary HTN (Chronic) Anemia with chronic illness (Chronic) ESRD Non-compliance (Chronic) non-compliant with meds and with dialysis Non-compliance with renal dialysis (Chronic) Respiratory failure with hypoxia (Chronic) Bilateral pleural effusion (Chronic) Cardiomyopathy (Chronic) Supplemental oxygen dependent (Chronic) CHF (congestive heart failure) (Chronic) EF 30% Coronary artery arteriosclerosis (Chronic) 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 COPD (chronic obstructive pulmonary disease) (Chronic) History of nephrectomy (Chronic) History of kidney cancer (Chronic) Chest pain (Chronic) Allergies disopyramide [From Norpace] Adverse Reaction (Severe, Verified 08/23/17 07:45) Unknown onion Adverse Reaction (Severe, Verified 08/23/17 07:45) Unknown sotalol Adverse Reaction (Severe, Verified 08/23/17 07:45) Unknown quinaglute Adverse Reaction (Severe, Uncoded 08/23/17 07:45) Unknown Home Medications: Ambulatory Orders Medication Instructions Recorded Acetaminophen [Tylenol] 1,000 mg PO Q4H PRN PRN 05/17/15 Calcium Acetate [Phoslo Gel Cap] 1 cap PO TIDCM 05/17/15 Lisinopril [Zestril] 20 mg PO DAILY 05/17/15 Cinacalcet HCl [Sensipar] 30 mg PO DAILY 09/08/15 Omeprazole 20 mg PO BID 02/05/17 Folic Acid/Vit Bcomp,C [Renal-Miguel Angel 0.8 mg PO DAILY 05/22/17 Tablet] Hydroxyzine Pamoate 50 mg PO BID 05/22/17 ondansetron HCl 4 mg tablet 4 mg PO Q8H PRN tab 06/20/17 tramadol 50 mg tablet 50 mg PO PRN PRN tab 06/20/17 albuterol sulfate HFA 90 1 puff INHALATION Q4H PRN PRN #1 07/16/17 mcg/actuation aerosol inhaler device Metoprolol(XL)Succ [Toprol Xl 100 mg PO BID 08/23/17 (Beta Rosemarie)] Oxycodone HCl/Acetaminophen 1 tablet PO Q4H PRN PRN 08/23/17 [Percocet 5/325] Warfarin [Coumadin] 4 mg PO DAILY@1700 08/23/17 Surgical History: - - AVF placement PAIGE, left nephrectomy for cancer, cardiac defibrillator placement in 2015. Right inguinal hernia repair in the remote past. Smoking Status: Former smoker Alcohol: None Drugs: None - *Family History Maternal History Items: No pertinent history, - - Patient's mother at age of 73 with a history of end-stage renal failure. Paternal History Items: Renal Disease, - - The patient's mother at age of 69 with a history of kidney cancer. Patient Problems: Active and Suspected Problems (Last Updated 08/24/17 @ 07:58 by Dwight Bhardwaj MD) MSSA bacteremia (Acute) Hyponatremia (Acute) Elevated troponin (Acute) not trending Atrial fibrillation with RVR (Acute) Sepsis (Acute) Supratherapeutic INR (Acute) - Physical Exam Vital Signs Temp Pulse Resp BP Pulse Ox 97.8 F 60 16 127/50 H 100 08/27/17 09:45 08/27/17 11:07 08/27/17 09:45 08/27/17 10:22 08/27/17 09:45 Oxygen Flow Rate (L/min) 2 Oxygen Delivery Method Nasal Cannula Weight: 137 lb 9.095 oz Body Mass Index (BMI) 20.7 Intake and Output for Last 24 Hours 08/25/17 08/26/17 08/27/17 23:59 23:59 23:59 Intake Total 1190 / 1190 1328.3 / 1328.3 594 / 594 Output Total 1300 / 1300 Balance 1190 / 1190 28.3 / 28.3 594 / 594 Microbiology Past 72 Hours 08/25/17 05:20 Bacteria Detection (PCR) - Final Blood Culture (Wb) - Arm Right Staphylococcus aureus Blood Culture - Preliminary Staphylococcus aureus 08/25/17 05:20 Blood Culture - Preliminary Blood Culture (Wb) - Right Hand Staphylococcus aureus 08/24/17 05:45 Blood Culture - Preliminary Blood Culture (Wb)#3 - Right Hand Staphylococcus aureus 08/24/17 05:40 Blood Culture - Preliminary Blood Culture (Wb)#3 - Right Hand Staphylococcus aureus 08/23/17 09:44 Blood Culture - Final Blood Culture (Wb) - Right Wrist Staphylococcus aureus 08/23/17 09:35 Bacteria Detection (PCR) - Final Blood Culture (Wb) - Right Hand Staphylococcus aureus Blood Culture - Final Staphylococcus aureus Assessment/Plan Active and Suspected Problems (Last Updated 08/24/17 @ 07:58 by Dwight Bhardwaj MD) MSSA bacteremia (Acute) Hyponatremia (Acute) Elevated troponin (Acute) not trending Atrial fibrillation with RVR (Acute) Sepsis (Acute) Supratherapeutic INR (Acute)
--- NOTE | 2017-08-27 12:26 | PCM.DC.SUM ---
Discharge Date and Diagnosis - Problem List Patient Problems: Active and Suspected Problems (Last Updated 08/24/17 @ 07:58 by Dwight Bhardwaj MD) MSSA bacteremia (Acute) Hyponatremia (Acute) Elevated troponin (Acute) not trending Atrial fibrillation with RVR (Acute) Sepsis (Acute) Supratherapeutic INR (Acute) Date of Admission: 08/23/17 Date of Discharge: 08/27/17 - Primary Discharge Diagnosis Active and Suspected Problems (Last Updated 08/24/17 @ 07:58 by Dwight Bhardwaj MD) MSSA bacteremia (Acute) Severe Sepsis (Acute) Hyponatremia (Acute) Elevated troponin (Acute)- not trending Atrial fibrillation with RVR (Acute) Supratherapeutic INR (Acute) Hyperkalemia - Secondary Discharge Diagnosis Chronic Problems (Last Updated 08/24/17 @ 07:58 by Dwight Bhardwaj MD) Mitral insufficiency (Chronic) Implantable cardioverter-defibrillator (ICD) in situ (Chronic) implanted 12/07/2015 at [facility] Sick sinus syndrome (Chronic) S/P dual-chamber Pacemaker/ICD ESRD (end stage renal disease) (Chronic) on HD HTN (hypertension) (Chronic) Pulmonary HTN (Chronic) PA systolic estimated at 48 Anemia with chronic illness (Chronic) ESRD Non-compliance (Chronic) non-compliant with meds and with dialysis Chronic Respiratory failure with hypoxia (Chronic) - on supplemental oxygen chronically Bilateral pleural effusion (Chronic) Cardiomyopathy/CHF (Chronic) - 30% EF Coronary artery arteriosclerosis (Chronic) 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 Electronically Signed: Spring Betancourt MD at 8:58 EDT , Service support , Laboratory Tests 08/23/17 08/23/17 08/23/17 07:50 07:50 07:50 WBC 26.1 H RBC 3.74 L Hgb 10.7 L Hct 33.9 L MCV 90.6 MCH 28.6 MCHC 31.6 L RDW 16.8 H RDW Differential 55.9 H Plt Count 175 MPV 9.1 Immature Gran % (Auto) 0.300 Neut % (Auto) 91.2 H Lymph % (Auto) 1.8 L [place] % (Auto) 6.3 Eos % (Auto) 0.2 Baso % (Auto) 0.2 Absolute Neuts (auto) 23.8 H Absolute Lymphs (auto) 0.46 L Total Counted Not Reportable Differential Comment Diff Path Review Reviewed PT 43.9 H INR 4.6 H* Sodium 135 L Potassium 3.9 Chloride 94 L Carbon Dioxide 30.0 Anion Gap 11 BUN 53 H Creatinine 6.64 H Estim Creat Clear Calc 11.08 Est GFR (MDRD) Af Amer 11 L Est GFR (MDRD) Non-Af 9 L BUN/Creatinine Ratio 8.0 L Glucose 97 Lactic Acid Calcium 8.5 Total Bilirubin AST ALT Alkaline Phosphatase Troponin I 0.15 H Total Protein Albumin Globulin Albumin/Globulin Ratio TSH Random Vancomycin 08/23/17 08/23/17 08/23/17 16:30 18:02 18:02 WBC RBC Hgb Hct MCV MCH MCHC RDW RDW Differential Plt Count MPV Immature Gran % (Auto) Neut % (Auto) Lymph % (Auto) [place] % (Auto) Eos % (Auto) Baso % (Auto) Absolute Neuts (auto) Absolute Lymphs (auto) Total Counted Differential Comment Diff Path Review PT INR Sodium 133 L Potassium 4.4 Chloride 95 L Carbon Dioxide 27.0 Anion Gap 11 BUN 59 H Creatinine 7.31 H Estim Creat Clear Calc 9.35 Est GFR (MDRD) Af Amer 10 L Est GFR (MDRD) Non-Af 8 L BUN/Creatinine Ratio 8.1 L Glucose 93 Lactic Acid 4.4 H* Calcium 8.5 Total Bilirubin 1.30 H AST 31 ALT 32 Alkaline Phosphatase 212 H Troponin I 0.14 H Total Protein 7.1 Albumin 3.0 L Globulin 4.1 Albumin/Globulin Ratio 0.7 L TSH Random Vancomycin 08/23/17 08/23/17 08/24/17 21:21 21:21 02:01 WBC RBC Hgb Hct MCV MCH MCHC RDW RDW Differential Plt Count MPV Immature Gran % (Auto) Neut % (Auto) Lymph % (Auto) [place] % (Auto) Eos % (Auto) Baso % (Auto) Absolute Neuts (auto) Absolute Lymphs (auto) Total Counted Differential Comment Diff Path Review PT INR Sodium Potassium Chloride Carbon Dioxide Anion Gap BUN Creatinine Estim Creat Clear Calc Est GFR (MDRD) Af Amer Est GFR (MDRD) Non-Af BUN/Creatinine Ratio Glucose Lactic Acid 2.2 H Calcium Total Bilirubin AST ALT Alkaline Phosphatase Troponin I 0.13 H 0.20 H Total Protein Albumin Globulin Albumin/Globulin Ratio TSH Random Vancomycin 08/24/17 08/24/17 08/24/17 05:40 05:40 05:40 WBC 27.7 H RBC 3.59 L Hgb 10.5 L Hct 32.6 L MCV 90.8 MCH 29.2 MCHC 32.2 RDW 16.9 H RDW Differential 54.5 H Plt Count 157 MPV 9.5 Immature Gran % (Auto) Neut % (Auto) Lymph % (Auto) [place] % (Auto) Eos % (Auto) Baso % (Auto) Absolute Neuts (auto) Absolute Lymphs (auto) Total Counted Differential Comment Diff Path Review PT 43.7 H INR 4.6 H* Sodium 130 L Potassium 5.2 H Chloride 91 L Carbon Dioxide 27.0 Anion Gap 12 BUN 65 H Creatinine 7.69 H* Estim Creat Clear Calc 8.89 Est GFR (MDRD) Af Amer 9 L Est GFR (MDRD) Non-Af 8 L BUN/Creatinine Ratio 8.5 L Glucose 116 H Lactic Acid Calcium 8.6 Total Bilirubin AST ALT Alkaline Phosphatase Troponin I Total Protein Albumin Globulin Albumin/Globulin Ratio TSH 0.78 Random Vancomycin 08/24/17 08/24/17 08/24/17 05:40 05:40 07:45 WBC RBC Hgb Hct MCV MCH MCHC RDW RDW Differential Plt Count MPV Immature Gran % (Auto) Neut % (Auto) Lymph % (Auto) [place] % (Auto) Eos % (Auto) Baso % (Auto) Absolute Neuts (auto) Absolute Lymphs (auto) Total Counted Differential Comment Diff Path Review PT INR Sodium Potassium Chloride Carbon Dioxide Anion Gap BUN Creatinine Estim Creat Clear Calc Est GFR (MDRD) Af Amer Est GFR (MDRD) Non-Af BUN/Creatinine Ratio Glucose Lactic Acid 2.1 H Calcium Total Bilirubin AST ALT Alkaline Phosphatase Troponin I 0.26 H Total Protein Albumin Globulin Albumin/Globulin Ratio TSH Random Vancomycin 13.3 08/24/17 08/25/17 08/25/17 10:25 05:20 05:20 WBC 22.2 H RBC 3.92 L Hgb 11.4 L Hct 36.1 L MCV 92.1 MCH 29.1 MCHC 31.6 L RDW 17.2 H RDW Differential 56.7 H Plt Count 176 MPV 10.1 Immature Gran % (Auto) 0.300 Neut % (Auto) 87.1 H Lymph % (Auto) 5.0 L [place] % (Auto) 6.9 Eos % (Auto) 0.5 Baso % (Auto) 0.2 Absolute Neuts (auto) 19.4 H Absolute Lymphs (auto) 1.10 Total Counted Not Reportable Differential Comment SCANNED Diff Path Review September foll PT 21.3 H INR 1.8 Sodium Potassium Chloride Carbon Dioxide Anion Gap BUN Creatinine Estim Creat Clear Calc Est GFR (MDRD) Af Amer Est GFR (MDRD) Non-Af BUN/Creatinine Ratio Glucose Lactic Acid 0.6 Calcium Total Bilirubin AST ALT Alkaline Phosphatase Troponin I Total Protein Albumin Globulin Albumin/Globulin Ratio TSH Random Vancomycin 08/25/17 08/26/17 08/26/17 05:20 05:10 05:10 WBC 20.0 H RBC 3.81 L Hgb 11.1 L Hct 34.0 L MCV 89.2 MCH 29.1 MCHC 32.6 RDW 16.9 H RDW Differential 54.3 H Plt Count 202 MPV 9.5 Immature Gran % (Auto) 0.400 Neut % (Auto) 82.9 H Lymph % (Auto) 7.5 L [place] % (Auto) 6.7 Eos % (Auto) 1.9 Baso % (Auto) 0.6 Absolute Neuts (auto) 16.6 H Absolute Lymphs (auto) 1.50 Total Counted Not Reportable Differential Comment Diff Path Review PT INR Sodium 132 L Potassium 4.3 Chloride 95 L Carbon Dioxide 26.0 Anion Gap 11 BUN 54 H Creatinine 6.11 H Estim Creat Clear Calc 11.28 Est GFR (MDRD) Af Amer 12 L Est GFR (MDRD) Non-Af 10 L BUN/Creatinine Ratio 8.8 L Glucose 172 H Lactic Acid Calcium 7.3 L Total Bilirubin AST ALT Alkaline Phosphatase Troponin I Total Protein Albumin Globulin Albumin/Globulin Ratio TSH Random Vancomycin 17.0 H 08/26/17 08/26/17 05:10 05:10 WBC RBC Hgb Hct MCV MCH MCHC RDW RDW Differential Plt Count MPV Immature Gran % (Auto) Neut % (Auto) Lymph % (Auto) [place] % (Auto) Eos % (Auto) Baso % (Auto) Absolute Neuts (auto) Absolute Lymphs (auto) Total Counted Differential Comment Diff Path Review PT 16.1 H INR 1.3 Sodium 132 L Potassium 4.5 Chloride 91 L Carbon Dioxide 28.0 Anion Gap 13 BUN 64 H Creatinine 7.03 H Estim Creat Clear Calc 9.80 Est GFR (MDRD) Af Amer 10 L Est GFR (MDRD) Non-Af 9 L BUN/Creatinine Ratio 9.1 L Glucose 78 Lactic Acid Calcium 8.8 Total Bilirubin AST ALT Alkaline Phosphatase Troponin I Total Protein Albumin Globulin Albumin/Globulin Ratio TSH Random Vancomycin Microbiology 08/25/17 05:20 Blood Culture (Wb) - Arm Right Bacteria Detection (PCR) - Final Staphylococcus aureus 08/25/17 05:20 Blood Culture (Wb) - Arm Right Blood Culture - Preliminary Staphylococcus aureus 08/25/17 05:20 Blood Culture (Wb) - Right Hand Blood Culture - Preliminary Staphylococcus aureus 08/24/17 05:45 Blood Culture (Wb)#3 - Right Hand Blood Culture - Preliminary Staphylococcus aureus 08/24/17 05:40 Blood Culture (Wb)#3 - Right Hand Blood Culture - Preliminary Staphylococcus aureus 08/23/17 09:44 Blood Culture (Wb) - Right Wrist Blood Culture - Final Staphylococcus aureus 08/23/17 09:35 Blood Culture (Wb) - Right Hand Bacteria Detection (PCR) - Final Staphylococcus aureus 08/23/17 09:35 Blood Culture (Wb) - Right Hand Blood Culture - Final Staphylococcus aureus Dr. Terence Gould-cardiology Dr. Jamshid Koehler-infectious disease Dr. Mejia-nephrology Operations: None Procedures: 2-D Echocardiogram - no vergetations, 1-2+ MR, EF 30%, PA systolic 48, Dialysis - M, W, F schedule Summary of Care Provided: The patient is a 57 year old M with a past medical history of end-stage renal disease on hemodialysis, coronary artery disease, ischemic cardiomyopathy with a 30% ejection fraction, pulmonary hypertension with a PA systolic estimated at 48, chronic atrial fibrillation, history of PM/AICD at [facility] on 12/07/15, hypertension, secondary parathyroid disease, COPD, renal cell carcinoma with history of nephrectomy, anemia of chronic renal failure, chronic respiratory failure with hypoxemia and former smoking hx who presented to the ER at [facility] on 08/23 c/o chest pain and palpitations. He stated his HR had been in the 150's at home. Temp in the ER was 102.5. EKG showed AF with HR 125. Troponin was 0.15 and has not trended on serial CE's. WBC was elevated at 26.1 and the INR was 4.6. Lactic acid was 4.4. Chest x-ray showed stable bilateral pleural effusions with no infiltrates. Blood cultures were drawn in the emergency room and he was admitted to a monitored bed and started on Vancomycin and Zosyn. Coumadin was held. 2 of 2 BC's were positive for MSSA from the . Repeat cultures from 08/24 and 08/25 were also positive (2of 2 each day). A single blood culture was drawn on 08/26 and it is also positive for MSSA. An ECHO showed no valvular vegetations. The EF was 30% and there was 1-2+ MR present. The RV systolic pressure was estimated at 48. He was seen in consult by Dr. Gould from cardiology and diuresed with HD with improvement in SOB. Dr. Mejia from [facility] was consulted to manage HD/fluid removal. Fluid balance was -[id number] during his hospital admission. On 08/26/17 he was seen by Dr. Kennedy from [place] who recommended transitioning to Cefazolin and transfer to a tertiary care center to explant the AICD. [facility]lock[facility] recommended , [facility] or [facility] for explant since they have a laser to do so. I spoke with Dr. Alicea at [facility] and he agreed to accept Mr. Betancourt in transfer. Vital signs are temperature 97.8, blood pressure 127/50, heart rate 60 and he is 100% saturated on a 2 L nasal cannula with a respiratory rate of 16. Lab from 08/26 showed a white blood cell count of 20,000 with 83% neutrophils, hemoglobin 11.1 and platelets 202,000. INR was 1.3 and he was restarted on Coumadin however, this has now been discontinued and he has been started on a heparin drip in preparation for explant of AICD. Sodium on 08/26/2017 was 132 with a chloride of 91. Potassium was 4.5 and the BUN was 64 with a creatinine of 7.03. He will be transferred when a bed is available and he has been made a high priority transfer. Home Medications: Medications to take at Discharge Acetaminophen [Tylenol] 1,000 mg PO Q4H PRN PRN 05/17/15 Calcium Acetate [Phoslo Gel Cap] 1 cap PO TIDCM 05/17/15 Lisinopril [Zestril] 20 mg PO DAILY 05/17/15 Cinacalcet HCl [Sensipar] 30 mg PO DAILY 09/08/15 Omeprazole 20 mg PO BID 02/05/17 Folic Acid/Vit Bcomp,C [Renal-Miguel Angel Tablet] 0.8 mg PO DAILY 05/22/17 Hydroxyzine Pamoate 50 mg PO BID 05/22/17 ondansetron HCl 4 mg tablet 4 mg PO Q8H PRN tab 06/20/17 tramadol 50 mg tablet 50 mg PO PRN PRN tab 06/20/17 albuterol sulfate HFA 90 mcg/actuation aerosol inhaler 1 puff INHALATION Q4H PRN PRN #1 device 07/16/17 Metoprolol(XL)Succ [Toprol Xl (Beta Rosemarie)] 100 mg PO BID 08/23/17 Oxycodone HCl/Acetaminophen [Percocet 5/325] 1 tablet PO Q4H PRN PRN 08/23/17 Warfarin [Coumadin] 4 mg PO DAILY@1700 08/23/17 Primary Care Physician: Conner Lopez MD [Primary Care Provider] - Disposition: [facility] - Dr. Alicea accepting Minutes spent on discharge:: 55 Patient Condition:: Guarded Medical Necessity - Tobacco Use Smoking Status: Former smoker Meaningful Use Info Meaningful Use Diagnoses (Choose all that apply): CHF - CHF KAROL/ARB ordered at discharge?: No Reason KAROL/ARB not ordered?: Hyperkalemia Documented LVEF (%): 30 Code Visit Inpatient E&M: 52932 Disch Hosp
--- NOTE | 2017-08-27 13:01 | DS.PCM_ITS ---
Discharge Date and Diagnosis - Problem List Patient Problems: Active and Suspected Problems (Last Updated 08/24/17 @ 07:58 by Dwight Bhardwaj MD) MSSA bacteremia (Acute) Hyponatremia (Acute) Elevated troponin (Acute) not trending Atrial fibrillation with RVR (Acute) Sepsis (Acute) Supratherapeutic INR (Acute) Date of Admission: 08/23/17 Date of Discharge: 08/27/17 - Primary Discharge Diagnosis Active and Suspected Problems (Last Updated 08/24/17 @ 07:58 by Dwight Bhardwaj MD) MSSA bacteremia (Acute) Severe Sepsis (Acute) Hyponatremia (Acute) Elevated troponin (Acute)- not trending Atrial fibrillation with RVR (Acute) Supratherapeutic INR (Acute) Hyperkalemia - Secondary Discharge Diagnosis Chronic Problems (Last Updated 08/24/17 @ 07:58 by Dwight Bhardwaj MD) Mitral insufficiency (Chronic) Implantable cardioverter-defibrillator (ICD) in situ (Chronic) implanted 12/07/2015 at [facility] Sick sinus syndrome (Chronic) S/P dual-chamber Pacemaker/ICD ESRD (end stage renal disease) (Chronic) on HD HTN (hypertension) (Chronic) Pulmonary HTN (Chronic) PA systolic estimated at 48 Anemia with chronic illness (Chronic) ESRD Non-compliance (Chronic) non-compliant with meds and with dialysis Chronic Respiratory failure with hypoxia (Chronic) - on supplemental oxygen chronically Bilateral pleural effusion (Chronic) Cardiomyopathy/CHF (Chronic) - 30% EF Coronary artery arteriosclerosis (Chronic) 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 Electronically Signed: Spring Betancourt MD at 8:58 EDT , Service support , Laboratory Tests 08/23/17 08/23/17 08/23/17 07:50 07:50 07:50 WBC 26.1 H RBC 3.74 L Hgb 10.7 L Hct 33.9 L MCV 90.6 MCH 28.6 MCHC 31.6 L RDW 16.8 H RDW Differential 55.9 H Plt Count 175 MPV 9.1 Immature Gran % (Auto) 0.300 Neut % (Auto) 91.2 H Lymph % (Auto) 1.8 L [place] % (Auto) 6.3 Eos % (Auto) 0.2 Baso % (Auto) 0.2 Absolute Neuts (auto) 23.8 H Absolute Lymphs (auto) 0.46 L Total Counted Not Reportable Differential Comment Diff Path Review Reviewed PT 43.9 H INR 4.6 H* Sodium 135 L Potassium 3.9 Chloride 94 L Carbon Dioxide 30.0 Anion Gap 11 BUN 53 H Creatinine 6.64 H Estim Creat Clear Calc 11.08 Est GFR (MDRD) Af Amer 11 L Est GFR (MDRD) Non-Af 9 L BUN/Creatinine Ratio 8.0 L Glucose 97 Lactic Acid Calcium 8.5 Total Bilirubin AST ALT Alkaline Phosphatase Troponin I 0.15 H Total Protein Albumin Globulin Albumin/Globulin Ratio TSH Random Vancomycin 08/23/17 08/23/17 08/23/17 16:30 18:02 18:02 WBC RBC Hgb Hct MCV MCH MCHC RDW RDW Differential Plt Count MPV Immature Gran % (Auto) Neut % (Auto) Lymph % (Auto) [place] % (Auto) Eos % (Auto) Baso % (Auto) Absolute Neuts (auto) Absolute Lymphs (auto) Total Counted Differential Comment Diff Path Review PT INR Sodium 133 L Potassium 4.4 Chloride 95 L Carbon Dioxide 27.0 Anion Gap 11 BUN 59 H Creatinine 7.31 H Estim Creat Clear Calc 9.35 Est GFR (MDRD) Af Amer 10 L Est GFR (MDRD) Non-Af 8 L BUN/Creatinine Ratio 8.1 L Glucose 93 Lactic Acid 4.4 H* Calcium 8.5 Total Bilirubin 1.30 H AST 31 ALT 32 Alkaline Phosphatase 212 H Troponin I 0.14 H Total Protein 7.1 Albumin 3.0 L Globulin 4.1 Albumin/Globulin Ratio 0.7 L TSH Random Vancomycin 08/23/17 08/23/17 08/24/17 21:21 21:21 02:01 WBC RBC Hgb Hct MCV MCH MCHC RDW RDW Differential Plt Count MPV Immature Gran % (Auto) Neut % (Auto) Lymph % (Auto) [place] % (Auto) Eos % (Auto) Baso % (Auto) Absolute Neuts (auto) Absolute Lymphs (auto) Total Counted Differential Comment Diff Path Review PT INR Sodium Potassium Chloride Carbon Dioxide Anion Gap BUN Creatinine Estim Creat Clear Calc Est GFR (MDRD) Af Amer Est GFR (MDRD) Non-Af BUN/Creatinine Ratio Glucose Lactic Acid 2.2 H Calcium Total Bilirubin AST ALT Alkaline Phosphatase Troponin I 0.13 H 0.20 H Total Protein Albumin Globulin Albumin/Globulin Ratio TSH Random Vancomycin 08/24/17 08/24/17 08/24/17 05:40 05:40 05:40 WBC 27.7 H RBC 3.59 L Hgb 10.5 L Hct 32.6 L MCV 90.8 MCH 29.2 MCHC 32.2 RDW 16.9 H RDW Differential 54.5 H Plt Count 157 MPV 9.5 Immature Gran % (Auto) Neut % (Auto) Lymph % (Auto) [place] % (Auto) Eos % (Auto) Baso % (Auto) Absolute Neuts (auto) Absolute Lymphs (auto) Total Counted Differential Comment Diff Path Review PT 43.7 H INR 4.6 H* Sodium 130 L Potassium 5.2 H Chloride 91 L Carbon Dioxide 27.0 Anion Gap 12 BUN 65 H Creatinine 7.69 H* Estim Creat Clear Calc 8.89 Est GFR (MDRD) Af Amer 9 L Est GFR (MDRD) Non-Af 8 L BUN/Creatinine Ratio 8.5 L Glucose 116 H Lactic Acid Calcium 8.6 Total Bilirubin AST ALT Alkaline Phosphatase Troponin I Total Protein Albumin Globulin Albumin/Globulin Ratio TSH 0.78 Random Vancomycin 08/24/17 08/24/17 08/24/17 05:40 05:40 07:45 WBC RBC Hgb Hct MCV MCH MCHC RDW RDW Differential Plt Count MPV Immature Gran % (Auto) Neut % (Auto) Lymph % (Auto) [place] % (Auto) Eos % (Auto) Baso % (Auto) Absolute Neuts (auto) Absolute Lymphs (auto) Total Counted Differential Comment Diff Path Review PT INR Sodium Potassium Chloride Carbon Dioxide Anion Gap BUN Creatinine Estim Creat Clear Calc Est GFR (MDRD) Af Amer Est GFR (MDRD) Non-Af BUN/Creatinine Ratio Glucose Lactic Acid 2.1 H Calcium Total Bilirubin AST ALT Alkaline Phosphatase Troponin I 0.26 H Total Protein Albumin Globulin Albumin/Globulin Ratio TSH Random Vancomycin 13.3 08/24/17 08/25/17 08/25/17 10:25 05:20 05:20 WBC 22.2 H RBC 3.92 L Hgb 11.4 L Hct 36.1 L MCV 92.1 MCH 29.1 MCHC 31.6 L RDW 17.2 H RDW Differential 56.7 H Plt Count 176 MPV 10.1 Immature Gran % (Auto) 0.300 Neut % (Auto) 87.1 H Lymph % (Auto) 5.0 L [place] % (Auto) 6.9 Eos % (Auto) 0.5 Baso % (Auto) 0.2 Absolute Neuts (auto) 19.4 H Absolute Lymphs (auto) 1.10 Total Counted Not Reportable Differential Comment SCANNED Diff Path Review September foll PT 21.3 H INR 1.8 Sodium Potassium Chloride Carbon Dioxide Anion Gap BUN Creatinine Estim Creat Clear Calc Est GFR (MDRD) Af Amer Est GFR (MDRD) Non-Af BUN/Creatinine Ratio Glucose Lactic Acid 0.6 Calcium Total Bilirubin AST ALT Alkaline Phosphatase Troponin I Total Protein Albumin Globulin Albumin/Globulin Ratio TSH Random Vancomycin 08/25/17 08/26/17 08/26/17 05:20 05:10 05:10 WBC 20.0 H RBC 3.81 L Hgb 11.1 L Hct 34.0 L MCV 89.2 MCH 29.1 MCHC 32.6 RDW 16.9 H RDW Differential 54.3 H Plt Count 202 MPV 9.5 Immature Gran % (Auto) 0.400 Neut % (Auto) 82.9 H Lymph % (Auto) 7.5 L [place] % (Auto) 6.7 Eos % (Auto) 1.9 Baso % (Auto) 0.6 Absolute Neuts (auto) 16.6 H Absolute Lymphs (auto) 1.50 Total Counted Not Reportable Differential Comment Diff Path Review PT INR Sodium 132 L Potassium 4.3 Chloride 95 L Carbon Dioxide 26.0 Anion Gap 11 BUN 54 H Creatinine 6.11 H Estim Creat Clear Calc 11.28 Est GFR (MDRD) Af Amer 12 L Est GFR (MDRD) Non-Af 10 L BUN/Creatinine Ratio 8.8 L Glucose 172 H Lactic Acid Calcium 7.3 L Total Bilirubin AST ALT Alkaline Phosphatase Troponin I Total Protein Albumin Globulin Albumin/Globulin Ratio TSH Random Vancomycin 17.0 H 08/26/17 08/26/17 05:10 05:10 WBC RBC Hgb Hct MCV MCH MCHC RDW RDW Differential Plt Count MPV Immature Gran % (Auto) Neut % (Auto) Lymph % (Auto) [place] % (Auto) Eos % (Auto) Baso % (Auto) Absolute Neuts (auto) Absolute Lymphs (auto) Total Counted Differential Comment Diff Path Review PT 16.1 H INR 1.3 Sodium 132 L Potassium 4.5 Chloride 91 L Carbon Dioxide 28.0 Anion Gap 13 BUN 64 H Creatinine 7.03 H Estim Creat Clear Calc 9.80 Est GFR (MDRD) Af Amer 10 L Est GFR (MDRD) Non-Af 9 L BUN/Creatinine Ratio 9.1 L Glucose 78 Lactic Acid Calcium 8.8 Total Bilirubin AST ALT Alkaline Phosphatase Troponin I Total Protein Albumin Globulin Albumin/Globulin Ratio TSH Random Vancomycin Microbiology 08/25/17 05:20 Blood Culture (Wb) - Arm Right Bacteria Detection (PCR) - Final Staphylococcus aureus 08/25/17 05:20 Blood Culture (Wb) - Arm Right Blood Culture - Preliminary Staphylococcus aureus 08/25/17 05:20 Blood Culture (Wb) - Right Hand Blood Culture - Preliminary Staphylococcus aureus 08/24/17 05:45 Blood Culture (Wb)#3 - Right Hand Blood Culture - Preliminary Staphylococcus aureus 08/24/17 05:40 Blood Culture (Wb)#3 - Right Hand Blood Culture - Preliminary Staphylococcus aureus 08/23/17 09:44 Blood Culture (Wb) - Right Wrist Blood Culture - Final Staphylococcus aureus 08/23/17 09:35 Blood Culture (Wb) - Right Hand Bacteria Detection (PCR) - Final Staphylococcus aureus 08/23/17 09:35 Blood Culture (Wb) - Right Hand Blood Culture - Final Staphylococcus aureus Dr. Terence Gould-cardiology Dr. Jamshid Koehler-infectious disease Dr. Mejia-nephrology Operations: None Procedures: 2-D Echocardiogram - no vergetations, 1-2+ MR, EF 30%, PA systolic 48, Dialysis - M, W, F schedule Summary of Care Provided: The patient is a 57 year old M with a past medical history of end-stage renal disease on hemodialysis, coronary artery disease, ischemic cardiomyopathy with a 30% ejection fraction, pulmonary hypertension with a PA systolic estimated at 48, chronic atrial fibrillation, history of PM/AICD at [facility] on 12/07/15, hypertension, secondary parathyroid disease, COPD, renal cell carcinoma with history of nephrectomy, anemia of chronic renal failure, chronic respiratory failure with hypoxemia and former smoking hx who presented to the ER at [facility] on 08/23 c/o chest pain and palpitations. He stated his HR had been in the 150's at home. Temp in the ER was 102.5. EKG showed AF with HR 125. Troponin was 0.15 and has not trended on serial CE's. WBC was elevated at 26.1 and the INR was 4.6. Lactic acid was 4.4. Chest x-ray showed stable bilateral pleural effusions with no infiltrates. Blood cultures were drawn in the emergency room and he was admitted to a monitored bed and started on Vancomycin and Zosyn. Coumadin was held. 2 of 2 BC's were positive for MSSA from the . Repeat cultures from 08/24 and 08/25 were also positive (2of 2 each day). A single blood culture was drawn on 08/26 and it is also positive for MSSA. An ECHO showed no valvular vegetations. The EF was 30% and there was 1-2 + MR present. The RV systolic pressure was estimated at 48. He was seen in consult by Dr. Gould from cardiology and diuresed with HD with improvement in SOB. Dr. Mejia from [facility] was consulted to manage HD/fluid removal. Fluid balance was -[phone] during his hospital admission. On 08/26/17 he was seen by Dr. Kennedy from [place] who recommended transitioning to Cefazolin and transfer to a tertiary care center to explant the AICD. [facility] and the medical pathology teacher recommended , [facility] or [facility] for explant since they have a laser to do so. I spoke with Dr. Alicea at [facility] and he agreed to accept Mr. Betancourt in transfer. Vital signs are temperature 97.8, blood pressure 127/50, heart rate 60 and he is 100% saturated on a 2 L nasal cannula with a respiratory rate of 16. Lab from 08/26 showed a white blood cell count of 20,000 with 83% neutrophils, hemoglobin 11.1 and platelets 202,000. INR was 1.3 and he was restarted on Coumadin however, this has now been discontinued and he has been started on a heparin drip in preparation for explant of AICD. Sodium on 08/26/2017 was 132 with a chloride of 91. Potassium was 4.5 and the BUN was 64 with a creatinine of 7.03. He will be transferred when a bed is available and he has been made a high priority transfer. Home Medications: Medications to take at Discharge Acetaminophen [Tylenol] 1,000 mg PO Q4H PRN PRN 05/17/15 Calcium Acetate [Phoslo Gel Cap] 1 cap PO TIDCM 05/17/15 Lisinopril [Zestril] 20 mg PO DAILY 05/17/15 Cinacalcet HCl [Sensipar] 30 mg PO DAILY 09/08/15 Omeprazole 20 mg PO BID 02/05/17 Folic Acid/Vit Bcomp,C [Renal-Miguel Angel Tablet] 0.8 mg PO DAILY 05/22/17 Hydroxyzine Pamoate 50 mg PO BID 05/22/17 ondansetron HCl 4 mg tablet 4 mg PO Q8H PRN tab 06/20/17 tramadol 50 mg tablet 50 mg PO PRN PRN tab 06/20/17 albuterol sulfate HFA 90 mcg/actuation aerosol inhaler 1 puff INHALATION Q4H PRN PRN #1 device 07/16/17 Metoprolol(XL)Succ [Toprol Xl (Beta Rosemarie)] 100 mg PO BID 08/23/17 Oxycodone HCl/Acetaminophen [Percocet 5/325] 1 tablet PO Q4H PRN PRN 08/23/17 Warfarin [Coumadin] 4 mg PO DAILY@1700 08/23/17 Primary Care Physician: Conner Lopez MD [Primary Care Provider] - Disposition: [facility] - Dr. Alicea accepting Minutes spent on discharge:: 55 Patient Condition:: Guarded Medical Necessity - Tobacco Use Smoking Status: Former smoker Meaningful Use Info Meaningful Use Diagnoses (Choose all that apply): CHF - CHF KAROL/ARB ordered at discharge?: No Reason KAROL/ARB not ordered?: Hyperkalemia Documented LVEF (%): 30 Code Visit Inpatient E&M: 07358 Disch Hosp
[2017-08-27 13:04] LABS: Pathologist Review Reviewed
--- NOTE | 2017-08-27 13:05 | NURSING ---
Called report to [facility] on patient at this time. Spoke to ERNST Layne.
--- NOTE | 2017-08-27 13:07 | PCM.PN.REN ---
Patient Problems: Active and Suspected Problems (Last Updated 08/24/17 @ 07:58 by Dwight Bhardwaj MD) MSSA bacteremia (Acute) Hyponatremia (Acute) Elevated troponin (Acute) not trending Atrial fibrillation with RVR (Acute) Sepsis (Acute) Supratherapeutic INR (Acute) Subjective: no new complaints - Physical Exam General: Alert, Oriented x3, Cooperative HEENT: Atraumatic, PERRLA, EOMI, Normocephalic Neck: Supple, No JVD, Negative Carotid Bruits Lungs: Clear to auscultation, Normal air movement Cardiovascular: Regular rate, No murmurs Abdomen: Bowel Sounds Present, Soft, Non Tender Extremities: No edema, Capillary Refill Less than 3 Seconds Skin: No rashes, No breakdown Musculoskeletal: No Tenderness to Palpation of Joints or Extremities Neurological: Cranial nerves II-XII grossly intact Psych/Mental Status: Normal Affect, Appropriate Vital Signs Temp Pulse Resp BP Pulse Ox 97.8 F 60 16 127/50 H 100 08/27/17 09:45 08/27/17 11:07 08/27/17 09:45 08/27/17 10:22 08/27/17 09:45 Oxygen Flow Rate (L/min) 2 Oxygen Delivery Method Nasal Cannula Weight: 62.4 kg Body Mass Index (BMI) 20.7 Intake and Output for Last 24 Hours 08/25/17 08/26/17 08/27/17 23:59 23:59 23:59 Intake Total 1190 / 1190 1328.3 / 1328.3 594 / 594 Output Total 1300 / 1300 Balance 1190 / 1190 28.3 / 28.3 594 / 594 Microbiology Past 72 Hours 08/26/17 10:15 Blood Culture - Preliminary Blood Culture (Wb) - Arm Left 08/25/17 05:20 Bacteria Detection (PCR) - Final Blood Culture (Wb) - Arm Right Staphylococcus aureus Blood Culture - Preliminary Staphylococcus aureus 08/25/17 05:20 Blood Culture - Preliminary Blood Culture (Wb) - Right Hand Staphylococcus aureus 08/24/17 05:45 Blood Culture - Preliminary Blood Culture (Wb)#3 - Right Hand Staphylococcus aureus 08/24/17 05:40 Blood Culture - Preliminary Blood Culture (Wb)#3 - Right Hand Staphylococcus aureus 08/23/17 09:44 Blood Culture - Final Blood Culture (Wb) - Right Wrist Staphylococcus aureus 08/23/17 09:35 Bacteria Detection (PCR) - Final Blood Culture (Wb) - Right Hand Staphylococcus aureus Blood Culture - Final Staphylococcus aureus Laboratory Tests Past 24 Hrs 08/25/17 05:20 Diff Path Review Reviewed Medical Necessity - Tobacco Use Smoking Status: Former smoker Assessment/Plan Active and Suspected Problems (Last Updated 08/24/17 @ 07:58 by Dwight Bhardwaj MD) MSSA bacteremia (Acute) Hyponatremia (Acute) Elevated troponin (Acute) not trending Atrial fibrillation with RVR (Acute) Sepsis (Acute) Supratherapeutic INR (Acute) ESRD MSSA bacteremia AFIB Persistent bacteremia going to [facility] main campus today for lead extraction
--- NOTE | 2017-08-27 14:11 | PCM.PN.ID ---
Patient Problems: Active and Suspected Problems (Last Updated 08/24/17 @ 07:58 by Dwight Bhardwaj MD) MSSA bacteremia (Acute) Hyponatremia (Acute) Elevated troponin (Acute) not trending Atrial fibrillation with RVR (Acute) Sepsis (Acute) Supratherapeutic INR (Acute) Subjective: Feeling better, no fever, no new joint pain. Transfer planned. - Physical Exam General: Alert, Cooperative, No apparent distress Lungs: Clear to auscultation, Normal air movement Cardiovascular: Regular rate, Murmur Abdomen: Soft, Non Tender, Non-Distended Extremities: - - LUE fistula Skin: No rashes Vital Signs Temp Pulse Resp BP Pulse Ox 97.8 F 60 16 127/50 H 100 08/27/17 09:45 08/27/17 11:07 08/27/17 09:45 08/27/17 10:22 08/27/17 09:45 Oxygen Flow Rate (L/min) 2 Oxygen Delivery Method Nasal Cannula Weight: 62.4 kg Body Mass Index (BMI) 20.7 Intake and Output for Last 24 Hours 08/25/17 08/26/17 08/27/17 23:59 23:59 23:59 Intake Total 1190 / 1190 1328.3 / 1328.3 594 / 594 Output Total 1300 / 1300 Balance 1190 / 1190 28.3 / 28.3 594 / 594 Microbiology Past 72 Hours 08/26/17 10:15 Blood Culture - Preliminary Blood Culture (Wb) - Arm Left 08/25/17 05:20 Bacteria Detection (PCR) - Final Blood Culture (Wb) - Arm Right Staphylococcus aureus Blood Culture - Preliminary Staphylococcus aureus 08/25/17 05:20 Blood Culture - Preliminary Blood Culture (Wb) - Right Hand Staphylococcus aureus 08/24/17 05:45 Blood Culture - Preliminary Blood Culture (Wb)#3 - Right Hand Staphylococcus aureus 08/24/17 05:40 Blood Culture - Preliminary Blood Culture (Wb)#3 - Right Hand Staphylococcus aureus 08/23/17 09:44 Blood Culture - Final Blood Culture (Wb) - Right Wrist Staphylococcus aureus 08/23/17 09:35 Bacteria Detection (PCR) - Final Blood Culture (Wb) - Right Hand Staphylococcus aureus Blood Culture - Final Staphylococcus aureus Laboratory Tests Past 24 Hrs 08/25/17 05:20 Diff Path Review Reviewed Medical Necessity - Tobacco Use Smoking Status: Former smoker Route of nutrition/ use of supplements: [] Nutritional Intake: [] IV Site: [] Vega Catheter: [] - Assessment/Plan Antibiotics: [] Assessment/Plan: [] Active and Suspected Problems (Last Updated 08/24/17 @ 07:58 by Dwight Bhardwaj MD) Atrial fibrillation with RVR (Acute) Sepsis (Acute) Supratherapeutic INR (Acute) Severe sepsis due to MSSA bacteremia with LUE fistula and R chest ICD in place - Improving temps, wbc, and lactate. Bcx from 08/25 still (+), pending from 08/26. On 08/26, narrowed vanc/zosyn to cefazolin. Ordered doppler of fistula. Given MSSA, likely will need BONIFACIO and device removal. TTE done. Transfer planned. D/w briefcase sewer, will follow.
--- NOTE | 2017-08-27 14:38 | NURSING ---
Called ERNST Layne at [facility] to let him know a PTT was not drawn by the time transport arrived so the heparin gtt was not hung.
[2017-08-27 14:56] LABS: International Normalized Ratio 1.8; Partial Thromboplast Time 44.1 Seconds (24.1-36.2); Prothrombin Time (Protime)PT. 21.1 SECONDS (11.7-14.9)
== END 2017-08-27 14:25 | disposition short-term general hospital (02) | DRG 871 ==
LOC: ED 08:07 → PCU 09:47
PROVIDERS: Hospitalist; Internal Medicine; Admitting Provider Hospitalist; Emergency Provider Emergency Medicine; Family Provider Family Medicine; PCP Family Medicine; Visit Provider Internal Medicine
DX: A41.01 Sepsis due to Methicillin susceptible Staphylococcus aureus (principal); N18.6 End stage renal disease; J96.11 Chronic respiratory failure with hypoxia; E87.1 Hypo-osmolality and hyponatremia; I13.2 Hypertensive heart and chronic kidney disease with heart failure and with stage 5 chronic kidney disease, or end stage renal disease; I50.22 Chronic systolic (congestive) heart failure; I42.9 Cardiomyopathy, unspecified; I48.92 Unspecified atrial flutter; D68.9 Coagulation defect, unspecified; R65.20 Severe sepsis without septic shock; I48.0 Paroxysmal atrial fibrillation; E87.5 Hyperkalemia; I25.10 Atherosclerotic heart disease of native coronary artery without angina pectoris; R79.89 Other specified abnormal findings of blood chemistry; D63.1 Anemia in chronic kidney disease; R07.89 Other chest pain; I27.20 Pulmonary hypertension, unspecified; I49.5 Sick sinus syndrome; R73.9 Hyperglycemia, unspecified; E21.1 Secondary hyperparathyroidism, not elsewhere classified; J44.9 Chronic obstructive pulmonary disease, unspecified; T45.515A Adverse effect of anticoagulants, initial encounter; G89.29 Other chronic pain; Z85.53 Personal history of malignant neoplasm of renal pelvis; Z99.2 Dependence on renal dialysis; Z91.15 Patient's noncompliance with renal dialysis; Z95.810 Presence of automatic (implantable) cardiac defibrillator; Z90.5 Acquired absence of kidney; Z79.01 Long term (current) use of anticoagulants; Z99.81 Dependence on supplemental oxygen; Z79.899 Other long term (current) drug therapy; Z87.891 Personal history of nicotine dependence; Z72.0 Tobacco use; Z91.14 Patient's other noncompliance with medication regimen; Z91.19 Patient's noncompliance with other medical treatment and regimen
CPT/HCPCS: 36415; 71045; 80048; 80053; 80202; 83605; 84443; 84484; 85025; 85027; 85610; 85730; 87040; 87077; 87149; 87186; 90937; 93005; 93306; 93990; 94640; 94762; 97802; 99284; J7040; A4216; G0257; J2405

== ENCOUNTER → 2017-09-17 16:30 | Outpatient (CLI) | payer MEDICARE, MEDICAID, SELFPAY ==
[2017-09-17 18:02] LABS: International Normalized Ratio 2.3; Prothrombin Time (Protime)PT. 25.4 SECONDS (11.7-14.9)
== END ==
PROVIDERS: Family Provider Family Medicine; PCP Family Medicine; Visit Provider Nurse Practitioner Family
DX: I48.0 Paroxysmal atrial fibrillation (principal)
CPT/HCPCS: 36415; 85610

== ENCOUNTER → 2017-09-26 12:16 | Outpatient (CLI) | payer MEDICARE, MEDICAID, SELFPAY ==
--- NOTE | 2017-09-26 12:21 | RAD_ITS ---
STUDY: X-RAY - ACUTE ABDOMINAL SERIES REASON FOR EXAM: Male, 57 years old. Abdominal pain. Diarrhea. TECHNIQUE: Single view of the chest. Supine, and erect view(s) of the abdomen were obtained. COMPARISON: Chest, August 23, 2017. FINDINGS: The cardiac pacemaker, seen on the prior study, is no longer present. The lungs are well expanded. Again seen are bilateral pleural effusions and atelectasis stable when compared to prior study. Normal size heart. Normal mediastinum and butch. Normal visualized pulmonary arteries. Normal visualized aortic arch and descending thoracic aorta. There is a non-specific bowel gas pattern. There is no evidence of small bowel dilatation or obstruction. There is no free air. The soft tissue structures of the abdomen and pelvis are unremarkable. Normal visualized osseous structures. RAD/Acute Abdomen Inc Chest IMPRESSION: 1. Bilateral pleural effusions and atelectasis. 2. No evidence for acute intra-abdominal process. Electronically Signed: Yoel Hirsch DO at 15:29 EDT Tel [phone], Service support ,
== END ==
PROVIDERS: Family Provider Family Medicine; PCP Family Medicine; Visit Provider Family Medicine
DX: R10.9 Unspecified abdominal pain (principal); J90 Pleural effusion, not elsewhere classified
CPT/HCPCS: 74022

== ENCOUNTER → 2017-10-01 14:47 | Outpatient (CLI) | payer MEDICARE, MEDICAID, SELFPAY ==
--- NOTE | 2017-10-01 14:49 | CT_ITS ---
STUDY: CT CHEST WITHOUT CONTRAST REASON FOR EXAM: Male, 57 years old. Follow-up lung nodule. RADIATION DOSAGE (If Supplied By Facility): CTDIvol = ( 9.48 ) mGy, DLP = ( 345.78 ) mGycm TECHNIQUE: Transaxial imaging was performed without the administration of intravenous contrast material. Multiplanar coronal and sagittal images were reformatted. Individualized dose optimization techniques were used for this CT. COMPARISON: Chest, August 23, 2017. CT of the chest, January 22, 2017. FINDINGS: The lungs are mildly hyperexpanded. There is bilateral apical pleural scarring. There is no focal mass or infiltrate. There is a persistent moderate right pleural effusion and atelectasis. There is a smaller left pleural effusion with atelectasis.. The heart is enlarged in size. Normal pericardium. The cardiac pacemaker, seen on the prior study, is no longer present. There is diffuse mediastinal lymphadenopathy. Normal hilar regions. Normal unenhanced pulmonary arteries. Normal aorta arch and descending thoracic aorta. There are multi-level degenerative changes of the thoracic spine. There is diffuse ascites. CT/Chest without Contrast IMPRESSION: 1. No evidence of pulmonary nodule or mass. 2. Bilateral pleural effusions with subsegmental atelectasis. These appear stable. 3. Persistent cardiomegaly. 4. Interval removal of the cardiac pacemaker. 5. Persistent mediastinal lymphadenopathy. 6. Ascites Electronically Signed: Yoel Hirsch DO at 23:01 EDT Tel [phone], Service support ,
== END ==
PROVIDERS: Family Provider Family Medicine; PCP Family Medicine; Visit Provider Nurse Practitioner Acute Care
DX: R91.1 Solitary pulmonary nodule (principal)
CPT/HCPCS: 71250

== ENCOUNTER 2017-10-21 20:27 | Emergency (ER) | payer MEDICARE, MEDICAID, SELFPAY ==
[2017-10-21] VITALS (11 sets, daily range): BP systolic 124–147; BP diastolic 71–110; PULSE 70–131; RESP 14–21; TEMP 36.9; O2SAT 86–100
--- NOTE | 2017-10-21 20:36 | ED.RN ---
RN CALLED FOR EKG, PULLED OLD EKG'S FOR
--- NOTE | 2017-10-21 20:51 | EKG12_ITS ---
Test Reason : CARDIOVERT Blood Pressure : / mmHG Vent. Rate : 073 BPM Atrial Rate : 073 BPM P-R Int : 162 ms QRS Dur : 096 ms QT Int : 422 ms P-R-T Axes : -02 009 098 degrees QTc Int : 464 ms Normal sinus rhythm T wave abnormality, consider lateral ischemia Prolonged QT Abnormal ECG Confirmed by PATEL JARA ([id number]), video editor KULDIP MASON ([id number]) on 11/04/2017 5:13:09 PM Referred By: JASWANT Confirmed By:PATEL JARA
[2017-10-21 21:17] LABS: Absolute Neutrophil Count 9.3 X10^3/uL (2.0-7.7); Basophil% 0.8 % (0-1); Eosinophil# 1.23 X10^3/uL; Eosinophils% 9.6 % (0-5); Hemoglobin 10.5 g/dl (13.0-16.5); Lymphocyte % 8.6 % (19-41); Mean Corp Hgb Conc 31.8 g/gl (32-36); Mean Corpuscular Hgb 27.9 pg (27.0-32.0); Mean Corpuscular Volume 87.5 fL (80-94); Mean Platelet Vol. 8.8 fl (6.2-12.0); Monocyte% 8.6 % (0-10); Neutrophil # 9.27 X10^3/uL (2.7-7.7); Neutrophil % 72.2 % (47-70); POSITIVE COUNT NO; POSITIVE DIFFERENTIAL NO; POSITIVE MORPHOLOGY NO; Platelet Count 196 K/mm3 (150-450); RBC Distribution Width CV 17.3 % (11.6-14.6); Red Blood Count 3.77 M/mm3 (4.6-6.2); White Blood Count 12.8 K/mm3 (4.4-11.0)
[2017-10-21 21:21] LABS: Anion Gap 10 (5-15); BUN 30 mg/dL (7-18); Calcium,Total 8.4 mg/dL (8.5-10.1); Chloride 96 mmol/L (98-107); Creatinine, Serum 4.28 mg/dL (0.70-1.30); EST Glomerular Filtration Rate 15 mL/min (>60); Est Glom Filt Rate - Afr Amer 18 mL/min (>60); Estimated Creatinine Clearance 15.41 ml/min; Glucose 127 mg/dL (74-106); Potassium 4.8 mmol/L (3.5-5.1); Sodium Level 137 mmol/L (136-145)
[2017-10-21] MEDS: Propofol 200 MG/20 ML Vial IV BOLUS (21:32)
--- NOTE | 2017-10-21 21:37 | ED.RN ---
PT WAS IN A FIB, TO CONVERT HIM BACK TO SINUS RHYTHM PT WAS CARDIOVERTED WITH 150 JOULES AT 2118
[2017-10-21 22:01] LABS: International Normalized Ratio 2.7; Prothrombin Time (Protime)PT. 29.2 SECONDS (11.7-14.9)
--- NOTE | 2017-10-21 22:44 | ED.DCSUM_ITS ---
- ER Visit Summary Date of Service: 10/21/17 Chief Complaint: Rapid heart rate History of Present Illness: The patient is a 57 M who has history of paroxysmal atrial fibrillation on Coumadin presents with rapid heart rate that started at 1500 while at dialysis. He denies any chest pain. He did complain of mild shortness of breath. He denies fever, chills night sweats. Denies weight gain or weight loss. Denies any ocular, visual auditory symptoms. Denies abdominal pain, nausea or vomiting. Denies black or maroon stool. He does not make urine. He denies any myalgias arthralgias. Denies generalized weakness, paresthesia, anesthesia motor weakness. He denies headache. He denies bruising easily or any allergic symptoms. Please read written note for complete detail Physical Examination: next field monitor reveals A. fib rate of approximately 118. HEENT exam is unremarkable. Conjunctive is pink. Heart is rapid and regular. Lungs are clear to auscultation. Abdomen soft nontender. He has mild edema the lower extremities. His neuro exam is nonfocal. Test Results: EKG reveals atrial flutter with variable block rate of 120. Work reveals elevated creatinine of 4.28. Hemoglobin is 10.5. INR is 2.7. Emergency Department Course and Treatment: EKG was obtained and appropriate blood work. Since patient's INR is therapeutic and he knows onset of his symptoms he was consented for deep procedural sedation using propofol and cardioversion. He was given opportunity ask questions. He had none. He denies allergy to soy products or egg products. Consent was signed by patient and me. Patient received a total of 80 mg of propofol. He was successfully cardioverted on first attempt using 150 J. Repeat EKG reveals a sinus rhythm rate of 75. There is no ischemic changes noted. Treatment Plan: Since he is an established patient with Dr. 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 Plan is discharge to home and follow-up with Dr. Gould. Disposition: Discharged home in stable and improved condition Impression: 1. Atrial fibrillation with RVR, paroxysmal 2. Deep procedural sedation using propofol (5 minutes 15 seconds) 3. Cardioversion This note was generated with Prevotyation software. It may contain incorrect words, spelling, and punctuation that were not noted in review of the chart prior to signing ED Disposition - Plan for ED Patient: Disposition: Home or Assisted Living Chief Complaint: Chest Pain Instructions: ED Afib Referrals: Conner Lopez MD [Primary Care Provider] - Terence Gould MD [STAFF PHYSICIAN] - 5-7 Days Additional Instructions: Call Dr. Gould's office in the morning for follow-up appointment
== END 2017-10-21 23:00 | disposition home or self-care (01) ==
PROVIDERS: Emergency Provider Emergency Medicine; Family Provider Family Medicine; PCP Family Medicine
DX: I48.0 Paroxysmal atrial fibrillation (principal); I25.10 Atherosclerotic heart disease of native coronary artery without angina pectoris; I11.0 Hypertensive heart disease with heart failure; I50.9 Heart failure, unspecified; J44.9 Chronic obstructive pulmonary disease, unspecified; Z85.528 Personal history of other malignant neoplasm of kidney; Z87.891 Personal history of nicotine dependence; Z79.01 Long term (current) use of anticoagulants; Z79.899 Other long term (current) drug therapy
CPT/HCPCS: 92960; 80048; 85025; 85610; 93005; 99285; J7030; A4216

== ENCOUNTER 2017-10-23 16:15 | Inpatient (IN) | payer MEDICARE, MEDICAID, SELFPAY ==
[2017-10-23] VITALS (12 sets, daily range): BP systolic 132–138; BP diastolic 68–99; PULSE 69–126; RESP 16–23; TEMP 36.6; O2SAT 94–100; BMI 20.3; BMI 20.4
--- NOTE | 2017-10-23 16:33 | RAD_ITS ---
STUDY: X-RAY CHEST REASON FOR EXAM: Male, 57 years old. Shortness of breath TECHNIQUE: Frontal view of the chest COMPARISON: 09/26/2017 FINDINGS: There are stable bilateral pleural effusions with overlying atelectasis. There are no focal infiltrates. There is no pneumothorax The heart is mildly large, but stable in size. The visualized osseous structures are within normal limits. RAD/Chest 1 View (Portable) IMPRESSION: No significant change when compared with 09/26/2017. Electronically Signed: Raman Ribera, at 17:15 EDT Tel , Service support ,
--- NOTE | 2017-10-23 16:33 | EKG12_ITS ---
Test Reason : CP Blood Pressure : / mmHG Vent. Rate : 120 BPM Atrial Rate : 240 BPM P-R Int : 000 ms QRS Dur : 098 ms QT Int : 300 ms P-R-T Axes : 000 -12 147 degrees QTc Int : 424 ms Atrial flutter with variable A-V block ST & T wave abnormality, consider lateral ischemia Abnormal ECG Confirmed by PATEL JARA ([id number]), editor producer KULDIP MASON ([id number]) on 11/04/2017 5:26:49 PM Referred By: JASWANT Confirmed By:PATEL JARA
--- NOTE | 2017-10-23 16:41 | ED.DCSUM_ITS ---
- ER Visit Summary Date of Service: 10/23/17 Chief Complaint: A. fib History of Present Illness: The patient is a 57 M who presents with an irregular heartbeat, heart racing, palpitations, generalized weakness, shortness of breath. The patient has a history of atrial fibrillation and was seen for this in the emergency department 2 days ago. He was sedated and cardioverted at that time. He is and has been on Coumadin. He takes metoprolol 25 mg twice a day. He also has a history of end-stage renal disease and was at dialysis when this started. Physical Examination: Afebrile. Heart rate 126. 100% on nasal cannula. Alert and oriented. No acute distress. Heart irregularly irregular and tachycardic. Lungs clear throughout. Abdomen soft. Skin appears normal. Test Results: EKG shows atrial fibrillation at a rate of [address] and T-wave changes. No sign of infarction. Blood work and x- ray pending. Emergency Department Course and Treatment: He was placed on a monitor. He is currently stable and will be treated with Cardizem. Will reassess. Nursing told me that Cardizem slowed his rate down and he went back into sinus rhythm for moment but then went back into atrial fibrillation. He was treated with metoprolol 5 mg ?3. No effect. His workup showed anemia and his chronic renal disease. He also has an indeterminate troponin. Patient remains tachycardic in the 110s primarily. His blood pressure remained stable. His skin in color looked stable. No significant symptoms or change. I spoke with Dr. Bran recommended starting an amnio bolus and drip. I called the hospitalist to admit to PCU. Treatment Plan: As above Disposition: Admission Impression: 1. Atrial fibrillation 2. End stage renal disease This note was generated with Mobyparkation software. It may contain incorrect words, spelling, and punctuation that were not noted in review of the chart prior to signing ED Disposition - Plan for ED Patient: Chief Complaint: Shortness of Breath Referrals: Conner Lopez MD [Primary Care Provider] -
[2017-10-23 16:48] LABS: Absolute Lymphocyte Count 0.91 X10^3/ul (0.83-4.51); Absolute Neutrophil Count 6.6 X10^3/uL (2.0-7.7); Basophil# 0.09 X10^3/uL; Eosinophil# 0.77 X10^3/uL; Eosinophils% 8.3 % (0-5); Hemoglobin 9.8 g/dl (13.0-16.5); Lymphocyte # 0.91 X10^3/ul (4.0); Lymphocyte % 9.8 % (19-41); Mean Corp Hgb Conc 31.6 g/gl (32-36); Mean Corpuscular Hgb 28.3 pg (27.0-32.0); Mean Corpuscular Volume 89.6 fL (80-94); Mean Platelet Vol. 9.2 fl (6.2-12.0); Monocyte# 0.91 X10^3/uL; Monocyte% 9.8 % (0-10); Neutrophil # 6.57 X10^3/uL (2.7-7.7); Neutrophil % 70.9 % (47-70); Platelet Count 220 K/mm3 (150-450); RBC Distribution Width CV 16.8 % (11.6-14.6); RBC Distribution Width SD 53.4 fl (35.1-43.9); Red Blood Count 3.46 M/mm3 (4.6-6.2); White Blood Count 9.3 K/mm3 (4.4-11.0)
[2017-10-23 16:58] LABS: POSITIVE COUNT NO; POSITIVE DIFFERENTIAL NO; POSITIVE MORPHOLOGY NO
[2017-10-23] MEDS: dilTIAZem 25 MG/5 ML Vial 10 MG IV BOLUS (16:59)
[2017-10-23 17:01] LABS: Anion Gap 9 (5-15); BUN 21 mg/dL (7-18); BUN/Creat Ratio 6.6 RATIO (10-20); Calcium,Total 7.8 mg/dL (8.5-10.1); Chloride 95 mmol/L (98-107); Creatinine, Serum 3.19 mg/dL (0.70-1.30); EST Glomerular Filtration Rate 21 mL/min (>60); Est Glom Filt Rate - Afr Amer 26 mL/min (>60); Estimated Creatinine Clearance 21.05 ml/min; Glucose 80 mg/dL (74-106); Potassium 3.4 mmol/L (3.5-5.1); Sodium Level 135 mmol/L (136-145)
[2017-10-23 17:13] LABS: International Normalized Ratio 1.8; Prothrombin Time (Protime)PT. 20.9 SECONDS (11.7-14.9)
[2017-10-23] MEDS: Metoprolol Tartrate 5 MG/5 ML Vial IV ×3 (17:35→18:08)
--- NOTE | 2017-10-23 19:12 | PCM.HP.STD ---
Problem List (1) Atrial fibrillation Status: Chronic (2) Elevated troponin Status: Chronic Comment: not trending (3) Implantable cardioverter-defibrillator (ICD) in situ Status: Chronic Comment: implanted in 12/07/2015 at [facility] (4) Sick sinus syndrome Status: Chronic Comment: S/P dual-chamber Pacemaker/ICD (5) ESRD (end stage renal disease) Status: Chronic Comment: on HD (6) HTN (hypertension) Status: Chronic Qualifiers: (7) Respiratory failure with hypoxia Status: Chronic Qualifiers: (8) Cardiomyopathy Status: Chronic Qualifiers: (9) CHF (congestive heart failure) Status: Chronic Qualifiers: Comment: EF 30% (10) Coronary artery arteriosclerosis Status: Chronic (11) COPD (chronic obstructive pulmonary disease) Status: Chronic History of Present Illness Date of Admission: 10/23/17 Chief Complaint: Palpitation, shortness of breath. The patient is a 57 year old M with complicated past medical history as mentioned above presented to the emergency room because of palpitation, generalized weakness and shortness of breath. Today, he went for dialysis and when he was about to be done with dialysis, he started feeling very weak, his heart started to race and having palpitations, associated with generalized weakness and he became short of breath. Reportedly, he was pale. He reported chest pain as well with this palpitation but also has chronic chest pain and chronically elevated troponin. He does have a history of paroxysmal atrial fibrillation and he has been on metoprolol for rate control and Coumadin for anticoagulation. 2 days ago, he came in to the emergency department for palpitation, found to have A. fib with RVR, underwent cardioversion and he went back into sinus rhythm and was discharged home. He has a history of end-stage renal disease and he has been on dialysis on Mondays, Wednesdays and Fridays. He has a history of COPD with chronic respiratory failure and he has been on oxygen at home at 2 L. In the emergency department, he was in A. fib with RVR, heart rate was up to 120s, blood pressure was stable. His routine blood work is remarkable for chronic anemia potassium of 3.4, creatinine of 3.19. Troponin was 0.049. His troponin is chronically elevated. His EKG revealed A. fib with RVR, no acute ischemic changes. Chest x-ray revealed bilateral pleural effusion similar to previous chest x-rays. He is being admitted for A. fib with RVR. Past Medical History Past Medical History (Chronic Problems): Chronic Problems (Last Updated 10/23/17 @ 19:11 by Dwight Bhardwaj MD) ICD extraction (Chronic) MSSA Bacteremia 08/2017 @[facility] Lung nodule (Chronic) Atrial fibrillation (Chronic) [facility] current use of anticoagulant (Chronic) Elevated troponin (Chronic) not trending Mitral insufficiency (Chronic) Implantable cardioverter-defibrillator (ICD) in situ (Chronic) implanted in 12/07/2015 at [facility] Sick sinus syndrome (Chronic) S/P dual-chamber Pacemaker/ICD ESRD (end stage renal disease) (Chronic) on HD HTN (hypertension) (Chronic) Pulmonary HTN (Chronic) Anemia with chronic illness (Chronic) ESRD Non-compliance (Chronic) non-compliant with meds and with dialysis Non-compliance with renal dialysis (Chronic) Respiratory failure with hypoxia (Chronic) Bilateral pleural effusion (Chronic) Cardiomyopathy (Chronic) CHF (congestive heart failure) (Chronic) EF 30% Coronary artery arteriosclerosis (Chronic) 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 COPD (chronic obstructive pulmonary disease) (Chronic) History of nephrectomy (Chronic) History of kidney cancer (Chronic) Chest pain (Chronic) Medical History: Medical History (Last Updated 10/23/17 @ 19:11 by Dwight Bhardwaj MD) Atrial fibrillation (Chronic) I48.91 [facility] current use of anticoagulant (Chronic) Z79.01 ESRD (end stage renal disease) (Chronic) N18.6 on HD HTN (hypertension) (Chronic) I10 Pulmonary HTN (Chronic) I27.2 Anemia with chronic illness (Chronic) D63.8 ESRD Non-compliance (Chronic) Z91.19 non-compliant with meds and with dialysis Non-compliance with renal dialysis (Chronic) Z91.15 Respiratory failure with hypoxia (Chronic) J96.91 Bilateral pleural effusion (Chronic) J90 Cardiomyopathy (Chronic) I42.9 CHF (congestive heart failure) (Chronic) I50.9 EF 30% Coronary artery arteriosclerosis (Chronic) I25.10 Parathyroid disease (Chronic) E21.5 due to ESRD COPD (chronic obstructive pulmonary disease) (Chronic) J44.9 History of kidney cancer (Chronic) Z85.528 Chest pain (Chronic) R07.9 Ulcer of foot (Resolved) L97.509 Allergies disopyramide [From Norpace] Adverse Reaction (Severe, Verified 10/21/17 20:29) Unknown onion Adverse Reaction (Severe, Verified 10/21/17 20:29) Unknown sotalol Adverse Reaction (Severe, Verified 10/21/17 20:29) Unknown quinaglute Adverse Reaction (Severe, Uncoded 10/21/17 20:29) Unknown Home Medications: Ambulatory Orders Medication Instructions Recorded Acetaminophen [Tylenol] 1,000 mg PO Q4H PRN PRN 05/17/15 Calcium Acetate [Phoslo Gel Cap] 667 mg PO TIDCM 05/17/15 Cinacalcet HCl [Sensipar] 30 mg PO DAILY 09/08/15 Omeprazole 20 mg PO BID 02/05/17 Folic Acid/Vit Bcomp,C [Renal-Miguel Angel 0.8 mg PO DAILY 05/22/17 Tablet] Warfarin [Coumadin] 4 mg PO DAILY@1700 08/23/17 metoprolol tartrate 25 mg tablet 25 mg PO BID 09/17/17 nitroglycerin 0.4 mg sublingual 0.4 mg SUBLINGUAL Q5-15M PRN 09/17/17 tablet Fluticasone 0.05% [Flonase Nasal 2 spray INTRANASAL DAILY PRN PRN 10/23/17 [place]] Lisinopril [Prinivil] 20 mg PO DAILY 10/23/17 Surgical History: Surgical History (Last Reviewed 09/19/17 @ 13:53 by Virginia Buchanan) History of nephrectomy (Chronic) Z98.890, Z90.5 Surgical History: - - AVF placement PAIGE, left nephrectomy for cancer, aicd in Smoking Status: Former smoker Tobacco Use: Chew - *Family History Maternal History Items: No pertinent history, - - Patient's mother at age of 73 with a history of end-stage renal failure. Paternal History Items: Renal Disease, - - The patient's mother at age of 69 with a history of kidney cancer. Review of Systems Constitutional: Reports: Weakness. Denies: Anorexia, Chills, Fever Eyes: Denies: Blurred vision, Double vision, Drainage, Redness HEENT: Denies: Difficulty Hearing, Ear Pain, Eye Pain, Nasal Congestion, Sore Throat Cardiovascular: Reports: Chest Pain, Palpitations. Denies: Chest Pressure, Edema, Heaviness, Syncope Respiratory: Reports: Shortness of Breath. Denies: Cough, Pleuritic Pain, Sputum production, Wheezing Gastrointestinal: Reports: Diarrhea. Denies: Abdominal Pain, Constipation, Nausea, Vomiting Genitourinary: Denies: Dysuria, Frequency, Hematuria Musculoskeletal: Denies: Arm Pain, Back Pain, Foot Pain Skin: Denies: Dryness, Rash Neurological: Denies: Balance problems, Double vision, Change in Speech, Slurred speech, Confusion, Headaches, Incoordination, Numbness Psychiatric: Denies: Anxiety, Depression Endocrine: Denies: Change in Body Habitus, Polydipsia VTE Information - Inpt Only VTE Present on Admission: No VTE Mechan Device Prophylaxis: None VTE Pharm Prophylaxis ordered?: No - Physical Exam General: Alert, Oriented x3, Cooperative, - - Mildly short of breath. HEENT: Atraumatic, PERRLA, EOMI Oral: Moist Mucosa, No Gingival or Mucosal Lesions/ Ulcerations Neck: Supple, No JVD, Negative Carotid Bruits, Trachea Midline, Thyroid Normal Size and Texture Lungs: No wheeze, No rales, Diminished, Rhonchi, Short of Breath, - - Decreased breath sounds bilateral, more on the right base with dull percussion notes, scattered rhonchi. Cardiovascular: Normal S1, Normal S2, No murmurs, PMI Normal, Irregular Rate, Tachycardic Abdomen: Bowel Sounds Present, Soft, Non Tender, Non-Distended, No Hepato-splenomegaly Extremities: No clubbing, No cyanosis, Edema - Trace edema. Skin: No rashes, No breakdown Lymphatic: No Cervical, Supraclavicular, or Inguinal Adenopathy Neurological: Cranial nerves II-XII grossly intact, Motor Exam 5/5 strength throughout Psych/Mental Status: Normal Affect, Appropriate, Alert and oriented to time, place, person, mood and affect Vital Signs Temp Pulse Resp BP Pulse Ox 97.9 F 114 H 22 H 132/93 H 98 10/23/17 16:16 10/23/17 19:05 10/23/17 19:05 10/23/17 19:05 10/23/17 19:05 Oxygen Flow Rate (L/min) 2 Oxygen Delivery Method Room Air Weight: 130 lb Body Mass Index (BMI) 20.3 Laboratory Tests Past 24 Hrs 10/23/17 10/23/17 10/23/17 16:25 16:25 16:25 WBC 9.3 RBC 3.46 L Hgb 9.8 L Hct 31.0 L MCV 89.6 MCH 28.3 MCHC 31.6 L RDW 16.8 H RDW Differential 53.4 H Plt Count 220 MPV 9.2 Immature Gran % (Auto) 0.200 Neut % (Auto) 70.9 H Lymph % (Auto) 9.8 L [place] % (Auto) 9.8 Eos % (Auto) 8.3 H Baso % (Auto) 1.0 Absolute Neuts (auto) 6.6 Absolute Lymphs (auto) 0.91 Total Counted Not Reportable PT 20.9 H INR 1.8 Sodium 135 L Potassium 3.4 L Chloride 95 L Carbon Dioxide 31.0 Anion Gap 9 BUN 21 H Creatinine 3.19 H Estim Creat Clear Calc 21.05 Est GFR (MDRD) Af Amer 26 L Est GFR (MDRD) Non-Af 21 L BUN/Creatinine Ratio 6.6 L Glucose 80 Calcium 7.8 L Troponin I 0.049 H Clinical Impression(s) from Imaging Studies Chest X-Ray 10/23/17 16:33 IMPRESSION: No significant change when compared with 09/26/2017. Electronically Signed: Raman Bacilio, at 17:15 EDT Tel , Service support , Assessment/Plan All Active Problems (Last Updated 10/23/17 @ 19:11 by Dwight Bhardwaj MD) Ulcer of foot (Resolved) This is a 57 years old male patient presented to the emergency room because of palpitation, shortness of breath and weakness and he was found to have A. fib with RVR which did not respond to IV Cardizem bolus ?1 as well as IV metoprolol and was started on amiodarone drip. #1 A. fib with RVR: In context of history of paroxysmal A. fib. 2 days ago, patient came into the emergency department for palpitation, found to have A. fib with RVR, underwent cardioversion and he converted back to sinus rhythm and was discharged home. Today, he is back in A. fib with RVR again, received 1 dose of IV Cardizem and metoprolol in the ER without improvement. He was started on IV Cardizem drip according to cardiology recommendations. EKG revealed A. fib with RVR, no acute ischemic changes. Troponin is borderline elevated which is chronic. Also, patient has chronic chest pain. Plan: Admit to PCU, textbook associate, serial cardiac enzymes, continue IV amiodarone drip, check serum magnesium, replace potassium, cardiology consult, repeat CBC and BMP tomorrow morning, PT OT evaluation and treatment. #2 chronic chest pain/chronically elevated troponin: Patient does have chronic chest pain and his troponin is borderline currently elevated. EKG without acute ischemic changes. Plan: Cardiac monitoring, serial cardiac enzymes, cardiology consult. #3 paroxysmal A. fib: He is in A. fib with RVR at this time. He has been on metoprolol for rate control and on Coumadin for anticoagulation. INR is 1.8. We will continue metoprolol and Coumadin, repeat INR tomorrow morning. #4 COPD/chronic respiratory failure: He is on home oxygen at 2 L. At this time, his pulse ox is 98% on 2 L. Plan: DuoNeb every 6 hours, albuterol as needed. #5 ESRD on hemodialysis: Nephrology consult, continue dialysis on Mondays, Wednesdays and Fridays. #6 chronic systolic CHF: Status post ICD removal due to MSSA bacteremia. Clinically compensated, stable. Plan to continue lisinopril and metoprolol, continue hemodialysis, monitor volume status to avoid volume overload. #7 sick sinus syndrome: Status post pacemaker. #8 hypertension: Blood pressure stable, continue lisinopril and metoprolol. #9 DVT prophylaxis: INR is 1.8. This note was generated with musiXmatch dictation software. It may contain incorrect words, spelling, and punctuation that were not noted in checking the note before signing. Code Visit Inpatient E&M: 61476 Init Hosp L3
--- NOTE | 2017-10-23 19:20 | NURSING ---
RENEE GASTON RN PATIENT C/O CHEST PAIN WHEN SHE WAS GIVING AMIODARONE. PAIN LEVEL 9/10. DR. HANSON MADE AWARE AND ANOTHER EKG WAS ORDERED, ALONG WITH A SECOND TROPONIN.
--- NOTE | 2017-10-23 19:21 | HP.PCM_ITS ---
Problem List (1) Atrial fibrillation Status: Chronic (2) Elevated troponin Status: Chronic Comment: not trending (3) Implantable cardioverter-defibrillator (ICD) in situ Status: Chronic Comment: implanted in 12/07/2015 at [facility] (4) Sick sinus syndrome Status: Chronic Comment: S/P dual-chamber Pacemaker/ICD (5) ESRD (end stage renal disease) Status: Chronic Comment: on HD (6) HTN (hypertension) Status: Chronic Qualifiers: (7) Respiratory failure with hypoxia Status: Chronic Qualifiers: (8) Cardiomyopathy Status: Chronic Qualifiers: (9) CHF (congestive heart failure) Status: Chronic Qualifiers: Comment: EF 30% (10) Coronary artery arteriosclerosis Status: Chronic (11) COPD (chronic obstructive pulmonary disease) Status: Chronic History of Present Illness Date of Admission: 10/23/17 Chief Complaint: Palpitation, shortness of breath. The patient is a 57 year old M with complicated past medical history as mentioned above presented to the emergency room because of palpitation, generalized weakness and shortness of breath. Today, he went for dialysis and when he was about to be done with dialysis, he started feeling very weak, his heart started to race and having palpitations, associated with generalized weakness and he became short of breath. Reportedly, he was pale. He reported chest pain as well with this palpitation but also has chronic chest pain and chronically elevated troponin. He does have a history of paroxysmal atrial fibrillation and he has been on metoprolol for rate control and Coumadin for anticoagulation. 2 days ago, he came in to the emergency department for palpitation, found to have A. fib with RVR, underwent cardioversion and he went back into sinus rhythm and was discharged home. He has a history of end-stage renal disease and he has been on dialysis on Mondays, Wednesdays and Fridays. He has a history of COPD with chronic respiratory failure and he has been on oxygen at home at 2 L. In the emergency department, he was in A. fib with RVR, heart rate was up to 120s, blood pressure was stable. His routine blood work is remarkable for chronic anemia potassium of 3.4, creatinine of 3.19. Troponin was 0.049. His troponin is chronically elevated. His EKG revealed A. fib with RVR, no acute ischemic changes. Chest x-ray revealed bilateral pleural effusion similar to previous chest x-rays. He is being admitted for A. fib with RVR. Past Medical History Past Medical History (Chronic Problems): Chronic Problems (Last Updated 10/23/17 @ 19:11 by Dwight Bhardwaj MD) ICD extraction (Chronic) MSSA Bacteremia 08/2017 @[facility] Lung nodule (Chronic) Atrial fibrillation (Chronic) MCC current use of anticoagulant (Chronic) Elevated troponin (Chronic) not trending Mitral insufficiency (Chronic) Implantable cardioverter-defibrillator (ICD) in situ (Chronic) implanted in 12/07/2015 at [facility] Sick sinus syndrome (Chronic) S/P dual-chamber Pacemaker/ICD ESRD (end stage renal disease) (Chronic) on HD HTN (hypertension) (Chronic) Pulmonary HTN (Chronic) Anemia with chronic illness (Chronic) ESRD Non-compliance (Chronic) non-compliant with meds and with dialysis Non-compliance with renal dialysis (Chronic) Respiratory failure with hypoxia (Chronic) Bilateral pleural effusion (Chronic) Cardiomyopathy (Chronic) CHF (congestive heart failure) (Chronic) EF 30% Coronary artery arteriosclerosis (Chronic) 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 COPD (chronic obstructive pulmonary disease) (Chronic) History of nephrectomy (Chronic) History of kidney cancer (Chronic) Chest pain (Chronic) Medical History: Medical History (Last Updated 10/23/17 @ 19:11 by Dwight Bhardwaj MD) Atrial fibrillation (Chronic) I48.91 MCC current use of anticoagulant (Chronic) Z79.01 ESRD (end stage renal disease) (Chronic) N18.6 on HD HTN (hypertension) (Chronic) I10 Pulmonary HTN (Chronic) I27.2 Anemia with chronic illness (Chronic) D63.8 ESRD Non-compliance (Chronic) Z91.19 non-compliant with meds and with dialysis Non-compliance with renal dialysis (Chronic) Z91.15 Respiratory failure with hypoxia (Chronic) J96.91 Bilateral pleural effusion (Chronic) J90 Cardiomyopathy (Chronic) I42.9 CHF (congestive heart failure) (Chronic) I50.9 EF 30% Coronary artery arteriosclerosis (Chronic) I25.10 Parathyroid disease (Chronic) E21.5 due to ESRD COPD (chronic obstructive pulmonary disease) (Chronic) J44.9 History of kidney cancer (Chronic) Z85.528 Chest pain (Chronic) R07.9 Ulcer of foot (Resolved) L97.509 Allergies disopyramide [From Norpace] Adverse Reaction (Severe, Verified 10/21/17 20:29) Unknown onion Adverse Reaction (Severe, Verified 10/21/17 20:29) Unknown sotalol Adverse Reaction (Severe, Verified 10/21/17 20:29) Unknown quinaglute Adverse Reaction (Severe, Uncoded 10/21/17 20:29) Unknown Home Medications: Ambulatory Orders Medication Instructions Recorded Acetaminophen [Tylenol] 1,000 mg PO Q4H PRN PRN 05/17/15 Calcium Acetate [Phoslo Gel Cap] 667 mg PO TIDCM 05/17/15 Cinacalcet HCl [Sensipar] 30 mg PO DAILY 09/08/15 Omeprazole 20 mg PO BID 02/05/17 Folic Acid/Vit Bcomp,C [Renal-Miguel Angel 0.8 mg PO DAILY 05/22/17 Tablet] Warfarin [Coumadin] 4 mg PO DAILY@1700 08/23/17 metoprolol tartrate 25 mg tablet 25 mg PO BID 09/17/17 nitroglycerin 0.4 mg sublingual 0.4 mg SUBLINGUAL Q5-15M PRN 09/17/17 tablet Fluticasone 0.05% [Flonase Nasal 2 spray INTRANASAL DAILY PRN PRN 10/23/17 [place]] Lisinopril [Prinivil] 20 mg PO DAILY 10/23/17 Surgical History: Surgical History (Last Reviewed 09/19/17 @ 13:53 by Virginia Buchanan) History of nephrectomy (Chronic) Z98.890, Z90.5 Surgical History: - - AVF placement PAIGE, left nephrectomy for cancer, aicd in Smoking Status: Former smoker Tobacco Use: Chew - *Family History Maternal History Items: No pertinent history, - - Patient's mother at age of 73 with a history of end-stage renal failure. Paternal History Items: Renal Disease, - - The patient's mother at age of 69 with a history of kidney cancer. Review of Systems Constitutional: Reports: Weakness. Denies: Anorexia, Chills, Fever Eyes: Denies: Blurred vision, Double vision, Drainage, Redness HEENT: Denies: Difficulty Hearing, Ear Pain, Eye Pain, Nasal Congestion, Sore Throat Cardiovascular: Reports: Chest Pain, Palpitations. Denies: Chest Pressure, Edema, Heaviness, Syncope Respiratory: Reports: Shortness of Breath. Denies: Cough, Pleuritic Pain, Sputum production, Wheezing Gastrointestinal: Reports: Diarrhea. Denies: Abdominal Pain, Constipation, Nausea, Vomiting Genitourinary: Denies: Dysuria, Frequency, Hematuria Musculoskeletal: Denies: Arm Pain, Back Pain, Foot Pain Skin: Denies: Dryness, Rash Neurological: Denies: Balance problems, Double vision, Change in Speech, Slurred speech, Confusion, Headaches, Incoordination, Numbness Psychiatric: Denies: Anxiety, Depression Endocrine: Denies: Change in Body Habitus, Polydipsia VTE Information - Inpt Only VTE Present on Admission: No VTE Mechan Device Prophylaxis: None VTE Pharm Prophylaxis ordered?: No - Physical Exam General: Alert, Oriented x3, Cooperative, - - Mildly short of breath. HEENT: Atraumatic, PERRLA, EOMI Oral: Moist Mucosa, No Gingival or Mucosal Lesions/ Ulcerations Neck: Supple, No JVD, Negative Carotid Bruits, Trachea Midline, Thyroid Normal Size and Texture Lungs: No wheeze, No rales, Diminished, Rhonchi, Short of Breath, - - Decreased breath sounds bilateral, more on the right base with dull percussion notes, scattered rhonchi. Cardiovascular: Normal S1, Normal S2, No murmurs, PMI Normal, Irregular Rate, Tachycardic Abdomen: Bowel Sounds Present, Soft, Non Tender, Non-Distended, No Hepato- splenomegaly Extremities: No clubbing, No cyanosis, Edema - Trace edema. Skin: No rashes, No breakdown Lymphatic: No Cervical, Supraclavicular, or Inguinal Adenopathy Neurological: Cranial nerves II-XII grossly intact, Motor Exam 5/5 strength throughout Psych/Mental Status: Normal Affect, Appropriate, Alert and oriented to time, place, person, mood and affect Vital Signs Temp Pulse Resp BP Pulse Ox 97.9 F 114 H 22 H 132/93 H 98 10/23/17 16:16 10/23/17 19:05 10/23/17 19:05 10/23/17 19:05 10/23/17 19:05 Oxygen Flow Rate (L/min) 2 Oxygen Delivery Method Room Air Weight: 130 lb Body Mass Index (BMI) 20.3 Laboratory Tests Past 24 Hrs 10/23/17 10/23/17 10/23/17 16:25 16:25 16:25 WBC 9.3 RBC 3.46 L Hgb 9.8 L Hct 31.0 L MCV 89.6 MCH 28.3 MCHC 31.6 L RDW 16.8 H RDW Differential 53.4 H Plt Count 220 MPV 9.2 Immature Gran % (Auto) 0.200 Neut % (Auto) 70.9 H Lymph % (Auto) 9.8 L [place] % (Auto) 9.8 Eos % (Auto) 8.3 H Baso % (Auto) 1.0 Absolute Neuts (auto) 6.6 Absolute Lymphs (auto) 0.91 Total Counted Not Reportable PT 20.9 H INR 1.8 Sodium 135 L Potassium 3.4 L Chloride 95 L Carbon Dioxide 31.0 Anion Gap 9 BUN 21 H Creatinine 3.19 H Estim Creat Clear Calc 21.05 Est GFR (MDRD) Af Amer 26 L Est GFR (MDRD) Non-Af 21 L BUN/Creatinine Ratio 6.6 L Glucose 80 Calcium 7.8 L Troponin I 0.049 H Clinical Impression(s) from Imaging Studies Chest X-Ray 10/23/17 16:33 IMPRESSION: No significant change when compared with 09/26/2017. Electronically Signed: Raman Bacilio, at 17:15 EDT Tel , Service support , Assessment/Plan All Active Problems (Last Updated 10/23/17 @ 19:11 by Dwight Bhardwaj MD) Ulcer of foot (Resolved) This is a 57 years old male patient presented to the emergency room because of palpitation, shortness of breath and weakness and he was found to have A. fib with RVR which did not respond to IV Cardizem bolus ?1 as well as IV metoprolol and was started on amiodarone drip. #1 A. fib with RVR: In context of history of paroxysmal A. fib. 2 days ago, patient came into the emergency department for palpitation, found to have A. fib with RVR, underwent cardioversion and he converted back to sinus rhythm and was discharged home. Today, he is back in A. fib with RVR again, received 1 dose of IV Cardizem and metoprolol in the ER without improvement. He was started on IV Cardizem drip according to cardiology recommendations. EKG revealed A. fib with RVR, no acute ischemic changes. Troponin is borderline elevated which is chronic. Also, patient has chronic chest pain. 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 #2 chronic chest pain/chronically elevated troponin: Patient does have chronic chest pain and his troponin is borderline currently elevated. EKG without acute ischemic changes. Plan: Cardiac monitoring, serial cardiac enzymes, cardiology consult. #3 paroxysmal A. fib: He is in A. fib with RVR at this time. He has been on metoprolol for rate control and on Coumadin for anticoagulation. INR is 1.8. We will continue metoprolol and Coumadin, repeat INR tomorrow morning. #4 COPD/chronic respiratory failure: He is on home oxygen at 2 L. At this time , his pulse ox is 98% on 2 L. Plan: DuoNeb every 6 hours, albuterol as needed. #5 ESRD on hemodialysis: Nephrology consult, continue dialysis on Mondays, Wednesdays and Fridays. #6 chronic systolic CHF: Status post ICD removal due to MSSA bacteremia. Clinically compensated, stable. Plan to continue lisinopril and metoprolol, continue hemodialysis, monitor volume status to avoid volume overload. #7 sick sinus syndrome: Status post pacemaker. #8 hypertension: Blood pressure stable, continue lisinopril and metoprolol. #9 DVT prophylaxis: INR is 1.8. This note was generated with [employer] dictation software. It may contain incorrect words, spelling, and punctuation that were not noted in checking the note before signing. Code Visit Inpatient E&M: 12070 Init Hosp L3
--- NOTE | 2017-10-23 19:42 | ED.RN ---
PATIENT'S CURRENT CHEST PAIN LEVEL IS 7/10. DR. HANSON WAS PAGING DR. ARCOS THE HOSPITALIST TO SEE WHAT THEY WANT TO DO NEXT PRIOR TO GOING TO THE FLOOR.
--- NOTE | 2017-10-23 19:50 | NURSING ---
DR. HANSON IS AWARE OF PATIENT'S CHEST PAIN LEVEL, AND HE SAID TO SEND HIM TO THE FLOOR PER DR. ARCOS. I CALLED PCU AND GAVE THE ADDED INFORMATION THAT WAS NOT INCLUDED IN THE INITIAL REPORT FROM THE PRIOR NURSE TO SAUMYA DUKES IN PCU.
--- NOTE | 2017-10-23 20:41 | PCM.CONS.C ---
Problem List (1) Atrial fibrillation Status: Chronic Qualifiers: Atrial fibrillation type: paroxysmal Qualified Code(s): I48.0 - Paroxysmal atrial fibrillation (2) Elevated troponin Status: Chronic Comment: not trending (3) Sick sinus syndrome Status: Chronic Comment: S/P dual-chamber Pacemaker/ICD (4) ICD extraction Status: Chronic Comment: GWENDOLYNA Bacteremia 08/2017 @[facility] (5) Cardiomyopathy Status: Chronic Qualifiers: Cardiomyopathy type: unspecified Qualified Code(s): I42.9 - Cardiomyopathy, unspecified (6) CHF (congestive heart failure) Status: Chronic Qualifiers: Heart failure type: systolic Comment: EF 30% (7) Bilateral pleural effusion Status: Chronic (8) HTN (hypertension) Status: Chronic Qualifiers: (9) ESRD (end stage renal disease) Status: Chronic Comment: on HD Reason for Consult Date of Consultation: 10/23/17 History of Present Illness: The patient is a 57 year old white male sleeve followed by Terence Gould MD of the [facility] history of underlying paroxysmal atrial fibrillation, sick sinus syndrome, non-CAD related cardiomyopathy, chronic systolic CHF, status post ICD placement and subsequent ICD explant secondary to concerns of underlying infectious disease process, end-stage renal disease, on chronic hemodialysis, who presents for recurrent paroxysmal atrial fibrillation with rapid ventricular response with associated concerns of chest discomfort, shortness of breath/dyspnea, and lightheadedness. He has had recurrent [facility] ED evaluations for such. He has been evaluated and treated in the ED with return to sinus rhythm and released home for continued outpatient follow-up. However he states it appears that he is having recurrent episodes during his hemodialysis/near the end of his hemodialysis. This occurred today and he was subsequently transferred to [facility] for further evaluation. In the emergency department he was treated with attempts at rate control therapy with transient return to sinus rhythm but then returned to atrial fibrillation with rapid ventricular response. During his evaluation he had additional laboratory studies performed which demonstrated indeterminate troponin I levels, which, he has had in the past. His ECG did not appear to demonstrate any acute ECG changes. He was recommended for additional attempts at rate control and rhythm control with IV amiodarone. He was subsequently placed in the PCU for further evaluation and care. After he arrived in the PCU and was placed on telemetry monitoring he was noted to be in sinus rhythm At the present time he states he is resting comfortably. He is not complaining of ongoing discomfort or difficulty breathing or lightheadedness. He has had no episodes of acute orthopnea or PND or worsening peripheral pitting edema. He denies near syncope. He states he continues to have concerns of abdominal related issues. He continues with frequent loose bowel movements/diarrhea. He is being evaluated for infectious disease etiologies. He did have a transthoracic epicardium performed at [facility] in August of this year. At that time his LVEF was less than 30%. He was subsequently at the [facility] for further evaluation where he underwent both transthoracic and transesophageal echocardiogram. At that time his LVEF was reported at 50%. [] Past Medical History Allergies/Adverse Reactions: Allergies disopyramide [From Norpace] Adverse Reaction (Severe, Verified 10/21/17 20:29) Unknown onion Adverse Reaction (Severe, Verified 10/21/17 20:29) Unknown sotalol Adverse Reaction (Severe, Verified 10/21/17 20:29) Unknown quinaglute Adverse Reaction (Severe, Uncoded 10/21/17 20:29) Unknown Home Medications: Ambulatory Orders Medication Instructions Recorded Acetaminophen [Tylenol] 1,000 mg PO Q4H PRN PRN 05/17/15 Calcium Acetate [Phoslo Gel Cap] 667 mg PO TIDCM 05/17/15 Cinacalcet HCl [Sensipar] 30 mg PO DAILY 09/08/15 Omeprazole 20 mg PO BID 02/05/17 Folic Acid/Vit Bcomp,C [Renal-Miguel Angel 0.8 mg PO DAILY 05/22/17 Tablet] Warfarin [Coumadin] 4 mg PO DAILY@1700 08/23/17 metoprolol tartrate 25 mg tablet 25 mg PO BID 09/17/17 nitroglycerin 0.4 mg sublingual 0.4 mg SUBLINGUAL Q5-15M PRN 09/17/17 tablet Fluticasone 0.05% [Flonase Nasal 2 spray INTRANASAL DAILY PRN PRN 10/23/17 [place]] Hydrocodone/Acetaminophen 1 each PO TID PRN 10/23/17 [Hydrocodon-Acetaminoph 7.5-325] Lisinopril [Prinivil] 20 mg PO DAILY 10/23/17 Nortriptyline HCl [Pamelor] 1 cap PO QHS 10/23/17 Past Medical History (Chronic Problems): Chronic Problems (Last Updated 10/23/17 @ 19:11 by Dwight Bhardwaj MD) ICD extraction (Chronic) MSSA Bacteremia 08/2017 @[facility] Lung nodule (Chronic) 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) Elevated troponin (Chronic) not trending Mitral insufficiency (Chronic) Implantable cardioverter-defibrillator (ICD) in situ (Chronic) implanted in 12/07/2015 at [facility] Sick sinus syndrome (Chronic) S/P dual-chamber Pacemaker/ICD ESRD (end stage renal disease) (Chronic) on HD HTN (hypertension) (Chronic) Pulmonary HTN (Chronic) Anemia with chronic illness (Chronic) ESRD Non-compliance (Chronic) non-compliant with meds and with dialysis Non-compliance with renal dialysis (Chronic) Respiratory failure with hypoxia (Chronic) Bilateral pleural effusion (Chronic) Cardiomyopathy (Chronic) CHF (congestive heart failure) (Chronic) EF 30% Coronary artery arteriosclerosis (Chronic) 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 Paternal History Items: Renal Disease, - - The patient's mother at age of 69 with a history of kidney cancer. Smoking Status: Former smoker Tobacco Use: Chew Review of Systems - Review of Systems General: Denies: Fever, Night Sweats, Fatigue Cardiovascular: Reports: Chest Discomfort, Shortness of Breath, Peripheral Edema, Palpitations, Lightheadedness. Denies: Orthopnea, PND, Dizziness, Near Syncope, Syncope Respiratory: Reports: Shortness of Breath. Denies: Cough, Sputum Production, Hemoptysis Gastrointestinal: Denies: Hematemesis, Hematochezia, Melena Genitourinary: Denies: Dysuria, Hematuria Skin: Denies: Rash Subjectve: This is a 57-year-old white male who appears to be resting comfortably at the moment in no acute distress. Objective: Vital Signs Temp Pulse Resp BP Pulse Ox 97.9 F 110 H 16 132/68 H 99 10/23/17 20:03 10/23/17 20:03 10/23/17 20:03 10/23/17 20:03 10/23/17 20:03 Oxygen Flow Rate (L/min) 3 Oxygen Delivery Method Nasal Cannula Weight: 127 lb 6.835 oz Body Mass Index (BMI) 20.0 General: Awake, Alert, Oriented x 3, Cooperative, No Acute Distress HEENT: Atraumatic, PERRL, EOMI, Sclera Non Icteric Oral: Moist Mucosa Neck: Supple, Good ROM, No JVD Lungs: Diminished Right Base Cardiovascular: Regular Rhythm, Normal S1, Normal S2 Abdomen: Bowel Sounds Present, Soft, Non Tender Extremities: Mild RLE Edema, Mild LLE Edema Neurological: No Focal Motor or Sensory Deficit 10/23/17 19:38: Troponin I 0.052 H Rhythm: Sinus rhythm EKG: Atrial fibrillation rapid ventricular response; poor R-wave progression; nonspecific ST and T-wave abnormality ECHO: As noted above: Please see official report CXR: Pulmonary evaluation: Increased pulmonary vascularity: Bilateral pleural effusions right greater than left: Please see final report Assessment/Plan 1. Paroxysmal atrial fibrillation with RVR He presents with recurrent paroxysmal atrial fibrillation with RVR. This may be brought out by his age, cardiovascular condition, pulmonary condition, and potentially his hemodialysis episodes. At the present time he appears to be back in a regular rhythm. He will need to continue to be monitored. He will be continued rate control therapy as long as he demonstrates no evidence of concerning bradycardia dysrhythmias. Based upon previous medical records it appears that he was recommended for, status post an ICD extraction at the [facility] in August of this year, for continued medical management including amiodarone therapy. She can be treated with such either intravenously or orally depending upon his current state and attempt to help maintain sinus rhythm. He has also been on anticoagulants with warfarin/Coumadin. His INR is somewhat subtherapeutic at this time. 2. Abnormal cardiac enzymes The patient appears to have chronically abnormal troponin I levels. He has been reported in the past to have a non-CAD related cardiomyopathy. Thus his troponin I levels may be a combination of a type II event secondary to his elevated heart rate on his underlying cardiomyopathy superimposed upon his underlying end-stage renal disease requiring chronic hemodialysis. At the present time he will continue to be monitored. His cardiac enzymes and ECG can be followed. Consideration can be given as to whether or not he can be reassessed noninvasively for any obvious evidence of underlying CAD and myocardial ischemia that would require further invasive evaluation and care. In the interim he can continue medical therapy for his associated cardiovascular conditions. 3. Sick sinus syndrome Reported as having underlying sick sinus syndrome. He did at one time require an ICD for both pacer support and based upon diminished LV systolic function. However that was extracted and [place] to concerns of underlying infection. His cardiac rate and rhythm will be followed. As his medications are adjusted in attempt should be made to avoid significant bradycardia dysrhythmias/conduction system disease. If he does develop this than his medicines will have to be altered and he may need to be considered, as commented upon by the [facility], for possible been of a new PPM device. 4. ICD extraction The patient did undergo ICD extraction in August this year at the [facility]. This was based on concerns of underlying infectious disease related issues. If he develops recurrent issues with respect of bradycardia dysrhythmias and/or demonstrates evidence of declining LV systolic function over time he may need to be reconsidered for either permanent pacemaker placement or repeat ICD placement. 5. Cardiomyopathy She has been reported by previous medical records as having a non-CAD related cardiomyopathy. He should continue medical management as best as possible. This would include agents such as beta blockers and afterload reducing agent such as KAROL inhibitors or ARB's. His overall LV systolic function will need to be followed for any obvious evidence of decline that would require further evaluation and care. 6. CHF: Chronic systolic He does appear to have evidence of chronic systolic mediated CHF. He has bilateral pleural effusions. He will need to continue medical management. 7. Bilateral pleural effusions The patient states that he has had undergo thoracentesis in the past to remove additional fluid to improve his pulmonary process. Would not be unreasonable to reassess his pleural effusions with a PA and lateral chest x-ray. If there are significant he could undergo repeat thoracentesis to help improve his pulmonary process. However his INR level may have to be somewhat lower before radiology would perform such a procedure. 8. Hypertension His blood pressure can be monitored. His medications can be adjusted as needed. 9. End-stage renal disease on chronic hemodialysis He will need to continue hemodialysis under the direction of nephrology. Comment: The patient's case has been discussed with the patient and the [facility] emergency department staff. This note was generated with [employer] dictation software. It may contain incorrect words, spelling, and punctuation that were not noted in checking the note before signing.
[2017-10-23 20:50] LABS: Magnesium 2.1 mg/dL (1.6-2.6)
--- NOTE | 2017-10-23 20:52 | CON.PCM_ITS ---
Problem List (1) Atrial fibrillation Status: Chronic Qualifiers: Atrial fibrillation type: paroxysmal Qualified Code(s): I48.0 - Paroxysmal atrial fibrillation (2) Elevated troponin Status: Chronic Comment: not trending (3) Sick sinus syndrome Status: Chronic Comment: S/P dual-chamber Pacemaker/ICD (4) ICD extraction Status: Chronic Comment: GWENDOLYNA Bacteremia 08/2017 @[facility] (5) Cardiomyopathy Status: Chronic Qualifiers: Cardiomyopathy type: unspecified Qualified Code(s): I42.9 - Cardiomyopathy , unspecified (6) CHF (congestive heart failure) Status: Chronic Qualifiers: Heart failure type: systolic Comment: EF 30% (7) Bilateral pleural effusion Status: Chronic (8) HTN (hypertension) Status: Chronic Qualifiers: (9) ESRD (end stage renal disease) Status: Chronic Comment: on HD Reason for Consult Date of Consultation: 10/23/17 History of Present Illness: The patient is a 57 year old white male sleeve followed by Terence Gould MD of the [facility] history of underlying paroxysmal atrial fibrillation, sick sinus syndrome, non-CAD related cardiomyopathy, chronic systolic CHF, status post ICD placement and subsequent ICD explant secondary to concerns of underlying infectious disease process, end-stage renal disease, on chronic hemodialysis, who presents for recurrent paroxysmal atrial fibrillation with rapid ventricular response with associated concerns of chest discomfort, shortness of breath/dyspnea, and lightheadedness. He has had recurrent [facility] ED evaluations for such. He has been evaluated and treated in the ED with return to sinus rhythm and released home for continued outpatient follow-up. However he states it appears that he is having recurrent episodes during his hemodialysis/near the end of his hemodialysis. This occurred today and he was subsequently transferred to [facility] for further evaluation. In the emergency department he was treated with attempts at rate control therapy with transient return to sinus rhythm but then returned to atrial fibrillation with rapid ventricular response. During his evaluation he had additional laboratory studies performed which demonstrated indeterminate troponin I levels, which, he has had in the past. His ECG did not appear to demonstrate any acute ECG changes. He was recommended for additional attempts at rate control and rhythm control with IV amiodarone. He was subsequently placed in the PCU for further evaluation and care. After he arrived in the PCU and was placed on telemetry monitoring he was noted to be in sinus rhythm At the present time he states he is resting comfortably. He is not complaining of ongoing discomfort or difficulty breathing or lightheadedness. He has had no episodes of acute orthopnea or PND or worsening peripheral pitting edema. He denies near syncope. He states he continues to have concerns of abdominal related issues. He continues with frequent loose bowel movements/diarrhea. He is being evaluated for infectious disease etiologies. He did have a transthoracic epicardium performed at [facility] in August of this year. At that time his LVEF was less than 30%. He was subsequently at the [facility] for further evaluation where he underwent both transthoracic and transesophageal echocardiogram. At that time his LVEF was reported at 50%. [] Past Medical History Allergies/Adverse Reactions: Allergies disopyramide [From Norpace] Adverse Reaction (Severe, Verified 10/21/17 20:29) Unknown onion Adverse Reaction (Severe, Verified 10/21/17 20:29) Unknown sotalol Adverse Reaction (Severe, Verified 10/21/17 20:29) Unknown quinaglute Adverse Reaction (Severe, Uncoded 10/21/17 20:29) Unknown Home Medications: Ambulatory Orders Medication Instructions Recorded Acetaminophen [Tylenol] 1,000 mg PO Q4H PRN PRN 05/17/15 Calcium Acetate [Phoslo Gel Cap] 667 mg PO TIDCM 05/17/15 Cinacalcet HCl [Sensipar] 30 mg PO DAILY 09/08/15 Omeprazole 20 mg PO BID 02/05/17 Folic Acid/Vit Bcomp,C [Renal-Miguel Angel 0.8 mg PO DAILY 05/22/17 Tablet] Warfarin [Coumadin] 4 mg PO DAILY@1700 08/23/17 metoprolol tartrate 25 mg tablet 25 mg PO BID 09/17/17 nitroglycerin 0.4 mg sublingual 0.4 mg SUBLINGUAL Q5-15M PRN 09/17/17 tablet Fluticasone 0.05% [Flonase Nasal 2 spray INTRANASAL DAILY PRN PRN 10/23/17 [place]] Hydrocodone/Acetaminophen 1 each PO TID PRN 10/23/17 [Hydrocodon-Acetaminoph 7.5-325] Lisinopril [Prinivil] 20 mg PO DAILY 10/23/17 Nortriptyline HCl [Pamelor] 1 cap PO QHS 10/23/17 Past Medical History (Chronic Problems): Chronic Problems (Last Updated 10/23/17 @ 19:11 by Dwight Bhardwaj MD) ICD extraction (Chronic) MSSA Bacteremia 08/2017 @[facility] Lung nodule (Chronic) Atrial fibrillation (Chronic) care home current use of anticoagulant (Chronic) Elevated troponin (Chronic) not trending Mitral insufficiency (Chronic) Implantable cardioverter-defibrillator (ICD) in situ (Chronic) implanted in 12/07/2015 at [facility] Sick sinus syndrome (Chronic) S/P dual-chamber Pacemaker/ICD ESRD (end stage renal disease) (Chronic) on HD HTN (hypertension) (Chronic) Pulmonary HTN (Chronic) Anemia with chronic illness (Chronic) ESRD Non-compliance (Chronic) non-compliant with meds and with dialysis Non-compliance with renal dialysis (Chronic) Respiratory failure with hypoxia (Chronic) Bilateral pleural effusion (Chronic) Cardiomyopathy (Chronic) CHF (congestive heart failure) (Chronic) EF 30% Coronary artery arteriosclerosis (Chronic) 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 Paternal History Items: Renal Disease, - - The patient's mother at age of 69 with a history of kidney cancer. Smoking Status: Former smoker Tobacco Use: Chew Review of Systems - Review of Systems General: Denies: Fever, Night Sweats, Fatigue Cardiovascular: Reports: Chest Discomfort, Shortness of Breath, Peripheral Edema , Palpitations, Lightheadedness. Denies: Orthopnea, PND, Dizziness, Near Syncope, Syncope Respiratory: Reports: Shortness of Breath. Denies: Cough, Sputum Production, Hemoptysis Gastrointestinal: Denies: Hematemesis, Hematochezia, Melena Genitourinary: Denies: Dysuria, Hematuria Skin: Denies: Rash Subjectve: This is a 57-year-old white male who appears to be resting comfortably at the moment in no acute distress. Objective: Vital Signs Temp Pulse Resp BP Pulse Ox 97.9 F 110 H 16 132/68 H 99 10/23/17 20:03 10/23/17 20:03 10/23/17 20:03 10/23/17 20:03 10/23/17 20:03 Oxygen Flow Rate (L/min) 3 Oxygen Delivery Method Nasal Cannula Weight: 127 lb 6.835 oz Body Mass Index (BMI) 20.0 General: Awake, Alert, Oriented x 3, Cooperative, No Acute Distress HEENT: Atraumatic, PERRL, EOMI, Sclera Non Icteric Oral: Moist Mucosa Neck: Supple, Good ROM, No JVD Lungs: Diminished Right Base Cardiovascular: Regular Rhythm, Normal S1, Normal S2 Abdomen: Bowel Sounds Present, Soft, Non Tender Extremities: Mild RLE Edema, Mild LLE Edema Neurological: No Focal Motor or Sensory Deficit 10/23/17 19:38: Troponin I 0.052 H Rhythm: Sinus rhythm EKG: Atrial fibrillation rapid ventricular response; poor R-wave progression; nonspecific ST and T-wave abnormality ECHO: As noted above: Please see official report CXR: Pulmonary evaluation: Increased pulmonary vascularity: Bilateral pleural effusions right greater than left: Please see final report Assessment/Plan 1. Paroxysmal atrial fibrillation with RVR He presents with recurrent paroxysmal atrial fibrillation with RVR. This may be brought out by his age, cardiovascular condition, pulmonary condition, and potentially his hemodialysis episodes. At the present time he appears to be back in a regular rhythm. He will need to continue to be monitored. He will be continued rate control therapy as long as he demonstrates no evidence of concerning bradycardia dysrhythmias. Based upon previous medical records it appears that he was recommended for, status post an ICD extraction at the [facility] in August of this year , for continued medical management including amiodarone therapy. She can be treated with such either intravenously or orally depending upon his current state and attempt to help maintain sinus rhythm. He has also been on anticoagulants with warfarin/Coumadin. His INR is somewhat subtherapeutic at this time. 2. Abnormal cardiac enzymes The patient appears to have chronically abnormal troponin I levels. He has been reported in the past to have a non-CAD related cardiomyopathy. Thus his troponin I levels may be a combination of a type II event secondary to his elevated heart rate on his underlying cardiomyopathy superimposed upon his underlying end-stage renal disease requiring chronic hemodialysis. At the present time he will continue to be monitored. His cardiac enzymes and ECG can be followed. Consideration can be given as to whether or not he can be reassessed noninvasively for any obvious evidence of underlying CAD and myocardial ischemia that would require further invasive evaluation and care. In the interim he can continue medical therapy for his associated cardiovascular conditions. 3. Sick sinus syndrome Reported as having underlying sick sinus syndrome. He did at one time require an ICD for both pacer support and based upon diminished LV systolic function. However that was extracted and Jaskaran to concerns of underlying infection. His cardiac rate and rhythm will be followed. As his medications are adjusted in attempt should be made to avoid significant bradycardia dysrhythmias/ conduction system disease. If he does develop this than his medicines will have to be altered and he may need to be considered, as commented upon by the [facility], for possible been of a new PPM device. 4. ICD extraction The patient did undergo ICD extraction in August this year at the [facility] [place]. This was based on concerns of underlying infectious disease related issues. If he develops recurrent issues with respect of bradycardia dysrhythmias and/or demonstrates evidence of declining LV systolic function over time he may need to be reconsidered for either permanent pacemaker placement or repeat ICD placement. 5. Cardiomyopathy She has been reported by previous medical records as having a non-CAD related cardiomyopathy. He should continue medical management as best as possible. This would include agents such as beta blockers and afterload reducing agent such as KAROL inhibitors or ARB's. His overall LV systolic function will need to be followed for any obvious evidence of decline that would require further evaluation and care. 6. CHF: Chronic systolic He does appear to have evidence of chronic systolic mediated CHF. He has bilateral pleural effusions. He will need to continue medical management. 7. Bilateral pleural effusions The patient states that he has had undergo thoracentesis in the past to remove additional fluid to improve his pulmonary process. Would not be unreasonable to reassess his pleural effusions with a PA and lateral chest x-ray. If there are significant he could undergo repeat thoracentesis to help improve his pulmonary process. However his INR level may have to be somewhat lower before radiology would perform such a procedure. 8. Hypertension His blood pressure can be monitored. His medications can be adjusted as needed. 9. End-stage renal disease on chronic hemodialysis He will need to continue hemodialysis under the direction of nephrology. Comment: The patient's case has been discussed with the patient and the [facility] emergency department staff. This note was generated with [employer] dictation software. It may contain incorrect words, spelling, and punctuation that were not noted in checking the note before signing.
--- NOTE | 2017-10-23 20:55 | RAD_ITS ---
STUDY: X-RAY CHEST REASON FOR EXAM: Male, 57 years old. Pleural effusion. TECHNIQUE: PA and lateral views of the chest. COMPARISON: Comparison is made with prior study dated October 23, 2017. FINDINGS: Stable bilateral pleural effusions with underlying infiltration and/or atelectasis worse in the right lower lobe. Normal size heart. Normal mediastinum and butch. Normal visualized pulmonary arteries. There is atherosclerotic tortuosity of the aortic arch and descending thoracic aorta. Normal visualized thoracic spine. Normal visualized ribs, clavicles, and shoulders. There is no demonstrated abnormality of the visualized soft tissue structures of the upper abdomen. RAD/Chest PA and Lateral IMPRESSION: Stable bilateral pleural effusions with underlying infiltration and/or atelectasis is worse on the right side. Electronically Signed: Michel Bustillo MD at 13:00 EDT Tel [phone], Service support ,
[2017-10-23] MEDS: Ipratropium/Albuterol Sulfate 3 ML AMPUL.NEB INHALATION (21:11)
[2017-10-23] MEDS: Amiodarone 200 MG Tablet PO (23:16)
[2017-10-23] MEDS: Metoprolol Tartrate 25 MG Tablet PO (23:18)
[2017-10-23] MEDS: Pantoprazole Sodium 20 MG Tablet PO (23:18)
[2017-10-24] VITALS (9 sets, daily range): BP systolic 123–149; BP diastolic 68–81; PULSE 60–65; RESP 18; TEMP 36.4–36.6; O2SAT 96–99
[2017-10-24] MEDS: Nortriptyline 25 MG Capsule PO (00:42)
[2017-10-24] MEDS: HYDROcodone Bitartrate/Apap 5/325 Tablet PO (02:13)
[2017-10-24 05:22] LABS: Absolute Lymphocyte Count 1.13 X10^3/ul (0.83-4.51); Absolute Neutrophil Count 7.4 X10^3/uL (2.0-7.7); Basophil# 0.15 X10^3/uL; Basophil% 1.4 % (0-1); Eosinophil# 1.07 X10^3/uL; Eosinophils% 9.9 % (0-5); Hematocrit 31.7 % (40-54); Lymphocyte # 1.13 X10^3/ul (4.0); Lymphocyte % 10.5 % (19-41); Mean Corp Hgb Conc 31.5 g/gl (32-36); Mean Corpuscular Hgb 28.2 pg (27.0-32.0); Mean Corpuscular Volume 89.3 fL (80-94); Mean Platelet Vol. 8.7 fl (6.2-12.0); Monocyte# 0.99 X10^3/uL; Monocyte% 9.2 % (0-10); Neutrophil # 7.44 X10^3/uL (2.7-7.7); Neutrophil % 68.8 % (47-70); Platelet Count 236 K/mm3 (150-450); RBC Distribution Width CV 16.6 % (11.6-14.6); RBC Distribution Width SD 53.2 fl (35.1-43.9); Red Blood Count 3.55 M/mm3 (4.6-6.2); White Blood Count 10.8 K/mm3 (4.4-11.0)
[2017-10-24 05:25] LABS: POSITIVE COUNT NO; POSITIVE DIFFERENTIAL NO; POSITIVE MORPHOLOGY NO
[2017-10-24 05:34] LABS: International Normalized Ratio 1.6; Prothrombin Time (Protime)PT. 18.9 SECONDS (11.7-14.9)
[2017-10-24 05:35] LABS: Partial Thromboplast Time 45.4 Seconds (24.1-36.2)
[2017-10-24 05:43] LABS: Anion Gap 12 (5-15); BUN 32 mg/dL (7-18); BUN/Creat Ratio 7.3 RATIO (10-20); Calcium,Total 8.3 mg/dL (8.5-10.1); Chloride 94 mmol/L (98-107); Creatinine, Serum 4.36 mg/dL (0.70-1.30); EST Glomerular Filtration Rate 15 mL/min (>60); Est Glom Filt Rate - Afr Amer 18 mL/min (>60); Glucose 92 mg/dL (74-106); Potassium 4.6 mmol/L (3.5-5.1); Sodium Level 137 mmol/L (136-145)
[2017-10-24] MEDS: Amiodarone 200 MG Tablet PO (05:47)
[2017-10-24] MEDS: Lisinopril 20 MG Tablet PO (05:48)
--- NOTE | 2017-10-24 05:55 | EKG12_ITS ---
Test Reason : AM EKG Blood Pressure : / mmHG Vent. Rate : 061 BPM Atrial Rate : 061 BPM P-R Int : 178 ms QRS Dur : 100 ms QT Int : 482 ms P-R-T Axes : -05 010 112 degrees QTc Int : 485 ms Normal sinus rhythm Poor R wave progression T wave abnormality, consider lateral ischemia Abnormal ECG Confirmed by DAYANA CAMPOS, AGAPITO ([id number]), department editor KULDIP MASON ([id number]) on 11/08/2017 1:25:02 PM Referred By: ABHISHEK Confirmed By:AGAPITO ANNE MD
--- NOTE | 2017-10-24 09:05 | PCM.PN.CARD ---
Subjectve: The patient states he feels better than yesterday. He has no ongoing chest discomfort or worsening shortness of breath/dyspnea. He has not noted recurrent palpitations. Objective: Vital Signs Temp Pulse Resp BP Pulse Ox 97.8 F 63 18 126/68 H 97 10/24/17 05:42 10/24/17 05:42 10/24/17 05:42 10/24/17 05:42 10/24/17 05:42 Oxygen Flow Rate (L/min) 2 Oxygen Delivery Method Nasal Cannula Weight: 127 lb 6.835 oz Body Mass Index (BMI) 20.0 General: Awake, Alert, Oriented x 3, Cooperative, No Acute Distress Neck: No JVD Lungs: Diminished Right Base Cardiovascular: Regular Rhythm, Normal S1, Normal S2 Abdomen: Bowel Sounds Present, Soft, Non Tender Extremities: Trace RLE Edema, Trace LLE Edema 10/23/17 19:38: Troponin I 0.052 H 10/23/17 19:38: Magnesium 2.1 10/23/17 23:09: Troponin I 0.054 H 10/24/17 05:10: WBC 10.8, RBC 3.55 L, Hgb 10.0 L, Hct 31.7 L, MCV 89.3, MCH 28.2, MCHC 31.5 L, RDW 16.6 H, RDW Differential 53.2 H, Plt Count 236, MPV 8.7, Immature Gran % (Auto) 0.200, Neut % (Auto) 68.8, Lymph % (Auto) 10.5 L, Chaves % (Auto) 9.2, Eos % (Auto) 9.9 H, Baso % (Auto) 1.4 H, Absolute Neuts (auto) 7.4, Total Counted Not Reportable 10/24/17 05:10: PT 18.9 H, INR 1.6, APTT 45.4 H 10/24/17 05:10: Sodium 137, Potassium 4.6, Chloride 94 L, Carbon Dioxide 31.0, Anion Gap 12, BUN 32 H, Creatinine 4.36 H, Est GFR (MDRD) Af Amer 18 L, Est GFR (MDRD) Non-Af 15 L, BUN/Creatinine Ratio 7.3 L, Glucose 92, Calcium 8.3 L Rhythm: Sinus rhythm EKG: Sinus rhythm; nonspecific T-wave abnormality Stress Test: Pending Medical Necessity - Tobacco Use Smoking Status: Former smoker Tobacco Use: Chew Assessment/Plan 1. Paroxysmal atrial fibrillation with RVR He presents with recurrent paroxysmal atrial fibrillation with RVR. This may be brought out by his age, cardiovascular condition, pulmonary condition, and potentially his hemodialysis episodes. At the present time he appears to be back in a regular rhythm. He will need to continue to be monitored. He will be continued rate control therapy as long as he demonstrates no evidence of concerning bradycardia dysrhythmias. Based upon previous medical records it appears that he was recommended for, status post an ICD extraction at the [facility] in August of this year, for continued medical management including amiodarone therapy. She can be treated with such either intravenously or orally depending upon his current state and attempt to help maintain sinus rhythm. He has also been on anticoagulants with warfarin/Coumadin. His INR is somewhat subtherapeutic at this time. 2. Abnormal cardiac enzymes The patient appears to have chronically abnormal troponin I levels. He has been reported in the past to have a non-CAD related cardiomyopathy. Thus his troponin I levels may be a combination of a type II event secondary to his elevated heart rate on his underlying cardiomyopathy superimposed upon his underlying end-stage renal disease requiring chronic hemodialysis. At the present time he will continue to be monitored. He is being evaluated for any obvious development and/or progression of underlying CAD from a noninvasive standpoint with a pharmacologic stress nuclear imaging study. In the interim he can continue medical therapy for his associated cardiovascular conditions. 3. Sick sinus syndrome Reported as having underlying sick sinus syndrome. He did at one time require an ICD for both pacer support and based upon diminished LV systolic function. However that was extracted and Jaskaran to concerns of underlying infection. His cardiac rate and rhythm will be followed. As his medications are adjusted in attempt should be made to avoid significant bradycardia dysrhythmias/conduction system disease. If he does develop this than his medicines will have to be altered and he may need to be considered, as commented upon by the [facility], for possible been of a new PPM device. 4. ICD extraction The patient did undergo ICD extraction in August this year at the [facility] [place]. This was based on concerns of underlying infectious disease related issues. If he develops recurrent issues with respect of bradycardia dysrhythmias and/or demonstrates evidence of declining LV systolic function over time he may need to be reconsidered for either permanent pacemaker placement or repeat ICD placement. 5. Cardiomyopathy She has been reported by previous medical records as having a non-CAD related cardiomyopathy. He should continue medical management as best as possible. This would include agents such as beta blockers and afterload reducing agent such as KAROL inhibitors or ARB's. His overall LV systolic function will need to be followed for any obvious evidence of decline that would require further evaluation and care. 6. CHF: Chronic systolic He does appear to have evidence of chronic systolic mediated CHF. He has bilateral pleural effusions. He will need to continue medical management. 7. Bilateral pleural effusions The patient states that he has had undergo thoracentesis in the past to remove additional fluid to improve his pulmonary process. Would not be unreasonable to reassess his pleural effusions with a PA and lateral chest x-ray. If there are significant he could undergo repeat thoracentesis to help improve his pulmonary process. However his INR level may have to be somewhat lower before radiology would perform such a procedure. 8. Hypertension His blood pressure can be monitored. His medications can be adjusted as needed. 9. End-stage renal disease on chronic hemodialysis He will need to continue hemodialysis under the direction of nephrology. Comment: The patient's case has been discussed with the patient. This note was generated with [employer] dictation software. It may contain incorrect words, spelling, and punctuation that were not noted in checking the note before signing.
--- NOTE | 2017-10-24 09:11 | PN.CARD_ITS ---
Subjectve: The patient states he feels better than yesterday. He has no ongoing chest discomfort or worsening shortness of breath/dyspnea. He has not noted recurrent palpitations. Objective: Vital Signs Temp Pulse Resp BP Pulse Ox 97.8 F 63 18 126/68 H 97 10/24/17 05:42 10/24/17 05:42 10/24/17 05:42 10/24/17 05:42 10/24/17 05:42 Oxygen Flow Rate (L/min) 2 Oxygen Delivery Method Nasal Cannula Weight: 127 lb 6.835 oz Body Mass Index (BMI) 20.0 General: Awake, Alert, Oriented x 3, Cooperative, No Acute Distress Neck: No JVD Lungs: Diminished Right Base Cardiovascular: Regular Rhythm, Normal S1, Normal S2 Abdomen: Bowel Sounds Present, Soft, Non Tender Extremities: Trace RLE Edema, Trace LLE Edema 10/23/17 19:38: Troponin I 0.052 H 10/23/17 19:38: Magnesium 2.1 10/23/17 23:09: Troponin I 0.054 H 10/24/17 05:10: WBC 10.8, RBC 3.55 L, Hgb 10.0 L, Hct 31.7 L, MCV 89.3, MCH 28.2 , MCHC 31.5 L, RDW 16.6 H, RDW Differential 53.2 H, Plt Count 236, MPV 8.7, Immature Gran % (Auto) 0.200, Neut % (Auto) 68.8, Lymph % (Auto) 10.5 L, [place] % (Auto) 9.2, Eos % (Auto) 9.9 H, Baso % (Auto) 1.4 H, Absolute Neuts (auto) 7.4, Total Counted Not Reportable 10/24/17 05:10: PT 18.9 H, INR 1.6, APTT 45.4 H 10/24/17 05:10: Sodium 137, Potassium 4.6, Chloride 94 L, Carbon Dioxide 31.0, Anion Gap 12, BUN 32 H, Creatinine 4.36 H, Est GFR (MDRD) Af Amer 18 L, Est GFR (MDRD) Non-Af 15 L, BUN/Creatinine Ratio 7.3 L, Glucose 92, Calcium 8.3 L Rhythm: Sinus rhythm EKG: Sinus rhythm; nonspecific T-wave abnormality Stress Test: Pending Medical Necessity - Tobacco Use Smoking Status: Former smoker Tobacco Use: Chew Assessment/Plan 1. Paroxysmal atrial fibrillation with RVR He presents with recurrent paroxysmal atrial fibrillation with RVR. This may be brought out by his age, cardiovascular condition, pulmonary condition, and potentially his hemodialysis episodes. At the present time he appears to be back in a regular rhythm. He will need to continue to be monitored. He will be continued rate control therapy as long as he demonstrates no evidence of concerning bradycardia dysrhythmias. Based upon previous medical records it appears that he was recommended for, status post an ICD extraction at the [facility] in August of this year , for continued medical management including amiodarone therapy. She can be treated with such either intravenously or orally depending upon his current state and attempt to help maintain sinus rhythm. He has also been on anticoagulants with warfarin/Coumadin. His INR is somewhat subtherapeutic at this time. 2. Abnormal cardiac enzymes The patient appears to have chronically abnormal troponin I levels. He has been reported in the past to have a non-CAD related cardiomyopathy. Thus his troponin I levels may be a combination of a type II event secondary to his elevated heart rate on his underlying cardiomyopathy superimposed upon his underlying end-stage renal disease requiring chronic hemodialysis. At the present time he will continue to be monitored. He is being evaluated for any obvious development and/or progression of underlying CAD from a noninvasive standpoint with a pharmacologic stress nuclear imaging study. In the interim he can continue medical therapy for his associated cardiovascular conditions. 3. Sick sinus syndrome Reported as having underlying sick sinus syndrome. He did at one time require an ICD for both pacer support and based upon diminished LV systolic function. However that was extracted and Jaskaran to concerns of underlying infection. His cardiac rate and rhythm will be followed. As his medications are adjusted in attempt should be made to avoid significant bradycardia dysrhythmias/ conduction system disease. If he does develop this than his medicines will have to be altered and he may need to be considered, as commented upon by the [facility], for possible been of a new PPM device. 4. ICD extraction The patient did undergo ICD extraction in August this year at the [facility]. This was based on concerns of underlying infectious disease related issues. If he develops recurrent issues with respect of bradycardia dysrhythmias and/or demonstrates evidence of declining LV systolic function over time he may need to be reconsidered for either permanent pacemaker placement or repeat ICD placement. 5. Cardiomyopathy She has been reported by previous medical records as having a non-CAD related cardiomyopathy. He should continue medical management as best as possible. This would include agents such as beta blockers and afterload reducing agent such as KAROL inhibitors or ARB's. His overall LV systolic function will need to be followed for any obvious evidence of decline that would require further evaluation and care. 6. CHF: Chronic systolic He does appear to have evidence of chronic systolic mediated CHF. He has bilateral pleural effusions. He will need to continue medical management. 7. Bilateral pleural effusions The patient states that he has had undergo thoracentesis in the past to remove additional fluid to improve his pulmonary process. Would not be unreasonable to reassess his pleural effusions with a PA and lateral chest x-ray. If there are significant he could undergo repeat thoracentesis to help improve his pulmonary process. However his INR level may have to be somewhat lower before radiology would perform such a procedure. 8. Hypertension His blood pressure can be monitored. His medications can be adjusted as needed. 9. End-stage renal disease on chronic hemodialysis He will need to continue hemodialysis under the direction of nephrology. Comment: The patient's case has been discussed with the patient. This note was generated with [employer] dictation software. It may contain incorrect words, spelling, and punctuation that were not noted in checking the note before signing.
--- NOTE | 2017-10-24 09:29 | STRESSREP_ITS ---
Stress Test Report Date: 10/24/2017 Procedure: Pharmacologic stress nuclear imaging study Indications: Chest pain; abnormal cardiac enzymes; atrial fibrillation; cardiomyopathy Consent: Per the patient Procedure: The patient underwent pharmacologic (Regadenoson) evaluation with a peak heart rate of 84 beats per minute (51 predicted maximal heart rate) and a peak blood pressure of 160/86 mmHg. The baseline ECG demonstrated sinus rhythm; nonspecific T-wave abnormality. The peak pharmacologic ECG demonstrated no obvious ECG changes. [There were no cardiac dysrhythmias pretest, during pharmacologic infusion, or recovery]. [There was no complaint of chest discomfort during pharmacologic infusion or recovery]. The examination was discontinued secondary to completion of protocol. Impression: 1. Pharmacologic (Regadenoson) evaluation 2. Peak pharmacologic ECG with no obvious ECG changes. 3. There were no cardiac dysrhythmias pretest, during pharmacologic infusion, or recovery 4. Nuclear images pending Myocardial perfusion imaging study: Technique: The patient was injected with 11.4 millicuries of technetium 99m Cardiolite and subsequently rest SPECT Cardiolite nuclear imaging was obtained in the horizontal long, vertical long, and short axis views. The patient underwent pharmacologic (Regadenoson) evaluation with a peak heart rate of 84 beats per minute (51 % percent predicted maximal heart rate) and a peak blood pressure of 160/90 mmHg. The patient was injected with 33.1 millicuries of technetium 99m Cardiolite and subsequently stress SPECT Cardiolite nuclear imaging was obtained in the horizontal long, vertical long, and short axis views. A gated Cardiolite study at peak stress was obtained. Interpretation: Rest and stress SPECT Cardiolite nuclear imaging status post realignment, normalization, and attenuation correction demonstrate the appearance of relative uniform tracer uptake and myocardial perfusion appearing within normal limits as well as the appearance of left ventricular dilatation out significant change between rest and stress. There is globally diminished end systolic thickening and brightening. There is globally diminished myocardial thickening and inward wall motion. The reported LVEF is 36%. Impression: 1. Rest and stress SPECT cardiac nuclear imaging demonstrate relative uniform tracer uptake and myocardial perfusion appearing within normal limits as well as myocardial perfusion changes appearing compatible with left ventricular dilatation. 2. The gated Cardiolite study reports an LVEF of 36 %. This note was generated with [employer] software. It may contain incorrect words, spelling, and punctuation that were not noted in checking the note before signing.
[2017-10-24] MEDS: Cinacalcet HCl 30 MG Tablet PO (09:37)
[2017-10-24] MEDS: Metoprolol Tartrate 25 MG Tablet PO (09:37)
[2017-10-24] MEDS: Folic Acid/Vitamin B Comp W-C 1 Capsule 1 CAP PO (09:37)
[2017-10-24] MEDS: Pantoprazole Sodium 20 MG Tablet PO (09:37)
--- NOTE | 2017-10-24 10:24 | PCM.PN.CARD ---
Subjectve: The patient has undergone pharmacologic stress nuclear imaging study. His results are compatible with a non-CAD related cardiomyopathy. Had no other new acute complaints. Objective: Vital Signs Temp Pulse Resp BP Pulse Ox 97.6 F L 63 18 149/74 H 99 10/24/17 09:40 10/24/17 09:40 10/24/17 09:40 10/24/17 09:40 10/24/17 09:40 Oxygen Flow Rate (L/min) 2 Oxygen Delivery Method Nasal Cannula Weight: 127 lb 6.835 oz Body Mass Index (BMI) 20.0 General: Awake, Alert, Oriented x 3, Cooperative, No Acute Distress HEENT: Atraumatic, Normocephalic, PERRL, EOMI, Sclera Non Icteric Neck: Supple, Good ROM, No JVD Lungs: Diminished Right Base Cardiovascular: Regular Rhythm, Normal S1, Normal S2 Abdomen: Bowel Sounds Present, Soft, Non Tender Extremities: Trace RLE Edema, Trace LLE Edema 10/23/17 19:38: Troponin I 0.052 H 10/23/17 19:38: Magnesium 2.1 10/23/17 23:09: Troponin I 0.054 H 10/24/17 05:10: WBC 10.8, RBC 3.55 L, Hgb 10.0 L, Hct 31.7 L, MCV 89.3, MCH 28.2, MCHC 31.5 L, RDW 16.6 H, RDW Differential 53.2 H, Plt Count 236, MPV 8.7, Immature Gran % (Auto) 0.200, Neut % (Auto) 68.8, Lymph % (Auto) 10.5 L, [place] % (Auto) 9.2, Eos % (Auto) 9.9 H, Baso % (Auto) 1.4 H, Absolute Neuts (auto) 7.4, Total Counted Not Reportable 10/24/17 05:10: PT 18.9 H, INR 1.6, APTT 45.4 H 10/24/17 05:10: Sodium 137, Potassium 4.6, Chloride 94 L, Carbon Dioxide 31.0, Anion Gap 12, BUN 32 H, Creatinine 4.36 H, Est GFR (MDRD) Af Amer 18 L, Est GFR (MDRD) Non-Af 15 L, BUN/Creatinine Ratio 7.3 L, Glucose 92, Calcium 8.3 L Stress Test: Pharmacologic stress nuclear imaging study appearing compatible with a non-CAD related cardiomyopathy with diminished LVEF: Please see official report Medical Necessity - Tobacco Use Smoking Status: Former smoker Tobacco Use: Chew Assessment/Plan 1. Paroxysmal atrial fibrillation with RVR He presents with recurrent paroxysmal atrial fibrillation with RVR. This may be brought out by his age, cardiovascular condition, pulmonary condition, and potentially his hemodialysis episodes. At the present time he appears to be back in a regular rhythm. He will need to continue to be monitored. He will be continued rate control therapy as long as he demonstrates no evidence of concerning bradycardia dysrhythmias. Based upon previous medical records it appears that he was recommended for, status post an ICD extraction at the [facility] in August of this year, for continued medical management including amiodarone therapy. She can be treated with such either intravenously or orally depending upon his current state and attempt to help maintain sinus rhythm. He has also been on anticoagulants with warfarin/Coumadin. His INR is somewhat subtherapeutic at this time. 2. Abnormal cardiac enzymes The patient appears to have chronically abnormal troponin I levels. He has been reported in the past to have a non-CAD related cardiomyopathy. Thus his troponin I levels may be a combination of a type II event secondary to his elevated heart rate on his underlying cardiomyopathy superimposed upon his underlying end-stage renal disease requiring chronic hemodialysis. At the present time he will continue to be monitored. His pharmacologic stress nuclear imaging study is as noted above. There are no immediate plans for further evaluation with diagnostic cardiac catheterization. 3. Sick sinus syndrome Reported as having underlying sick sinus syndrome. He did at one time require an ICD for both pacer support and based upon diminished LV systolic function. However that was extracted and Jaskaran to concerns of underlying infection. His cardiac rate and rhythm will be followed. As his medications are adjusted in attempt should be made to avoid significant bradycardia dysrhythmias/conduction system disease. If he does develop this than his medicines will have to be altered and he may need to be considered, as commented upon by the [facility], for possible been of a new PPM device. 4. ICD extraction The patient did undergo ICD extraction in August this year at the [facility] Main [facility]. This was based on concerns of underlying infectious disease related issues. If he develops recurrent issues with respect of bradycardia dysrhythmias and/or demonstrates evidence of declining LV systolic function over time he may need to be reconsidered for either permanent pacemaker placement or repeat ICD placement. 5. Cardiomyopathy She has been reported by previous medical records as having a non-CAD related cardiomyopathy. He should continue medical management as best as possible. This would include agents such as beta blockers and afterload reducing agent such as KAROL inhibitors or ARB's. His overall LV systolic function will need to be followed for any obvious evidence of decline that would require further evaluation and care. 6. CHF: Chronic systolic He does appear to have evidence of chronic systolic mediated CHF. He has bilateral pleural effusions. He will need to continue medical management. 7. Bilateral pleural effusions The does appear to have a prominent right sided pleural effusion which is not improved with dialysis. He has undergone thoracentesis in the past. It would not be unreasonable to repeat a thoracentesis to assist in improving his underlying pulmonary condition. Hopefully this can be done while his INR is decreased. Once this is done his anticoagulants can be adjusted to increase his INR level. 8. Hypertension His blood pressure can be monitored. His medications can be adjusted as needed. 9. End-stage renal disease on chronic hemodialysis He will need to continue hemodialysis under the direction of nephrology. Comment: The patient's case has been discussed with the patient and the [facility] hospitalist staff. This note was generated with [employer] dictation software. It may contain incorrect words, spelling, and punctuation that were not noted in checking the note before signing.
--- NOTE | 2017-10-24 10:29 | PN.CARD_ITS ---
Subjectve: The patient has undergone pharmacologic stress nuclear imaging study. His results are compatible with a non-CAD related cardiomyopathy. Had no other new acute complaints. Objective: Vital Signs Temp Pulse Resp BP Pulse Ox 97.6 F L 63 18 149/74 H 99 10/24/17 09:40 10/24/17 09:40 10/24/17 09:40 10/24/17 09:40 10/24/17 09:40 Oxygen Flow Rate (L/min) 2 Oxygen Delivery Method Nasal Cannula Weight: 127 lb 6.835 oz Body Mass Index (BMI) 20.0 General: Awake, Alert, Oriented x 3, Cooperative, No Acute Distress HEENT: Atraumatic, Normocephalic, PERRL, EOMI, Sclera Non Icteric Neck: Supple, Good ROM, No JVD Lungs: Diminished Right Base Cardiovascular: Regular Rhythm, Normal S1, Normal S2 Abdomen: Bowel Sounds Present, Soft, Non Tender Extremities: Trace RLE Edema, Trace LLE Edema 10/23/17 19:38: Troponin I 0.052 H 10/23/17 19:38: Magnesium 2.1 10/23/17 23:09: Troponin I 0.054 H 10/24/17 05:10: WBC 10.8, RBC 3.55 L, Hgb 10.0 L, Hct 31.7 L, MCV 89.3, MCH 28.2 , MCHC 31.5 L, RDW 16.6 H, RDW Differential 53.2 H, Plt Count 236, MPV 8.7, Immature Gran % (Auto) 0.200, Neut % (Auto) 68.8, Lymph % (Auto) 10.5 L, [place] % (Auto) 9.2, Eos % (Auto) 9.9 H, Baso % (Auto) 1.4 H, Absolute Neuts (auto) 7.4, Total Counted Not Reportable 10/24/17 05:10: PT 18.9 H, INR 1.6, APTT 45.4 H 10/24/17 05:10: Sodium 137, Potassium 4.6, Chloride 94 L, Carbon Dioxide 31.0, Anion Gap 12, BUN 32 H, Creatinine 4.36 H, Est GFR (MDRD) Af Amer 18 L, Est GFR (MDRD) Non-Af 15 L, BUN/Creatinine Ratio 7.3 L, Glucose 92, Calcium 8.3 L Stress Test: Pharmacologic stress nuclear imaging study appearing compatible with a non-CAD related cardiomyopathy with diminished LVEF: Please see official report Medical Necessity - Tobacco Use Smoking Status: Former smoker Tobacco Use: Chew Assessment/Plan 1. Paroxysmal atrial fibrillation with RVR He presents with recurrent paroxysmal atrial fibrillation with RVR. This may be brought out by his age, cardiovascular condition, pulmonary condition, and potentially his hemodialysis episodes. At the present time he appears to be back in a regular rhythm. He will need to continue to be monitored. He will be continued rate control therapy as long as he demonstrates no evidence of concerning bradycardia dysrhythmias. Based upon previous medical records it appears that he was recommended for, status post an ICD extraction at the [facility] in August of this year , for continued medical management including amiodarone therapy. She can be treated with such either intravenously or orally depending upon his current state and attempt to help maintain sinus rhythm. He has also been on anticoagulants with warfarin/Coumadin. His INR is somewhat subtherapeutic at this time. 2. Abnormal cardiac enzymes The patient appears to have chronically abnormal troponin I levels. He has been reported in the past to have a non-CAD related cardiomyopathy. Thus his troponin I levels may be a combination of a type II event secondary to his elevated heart rate on his underlying cardiomyopathy superimposed upon his underlying end-stage renal disease requiring chronic hemodialysis. At the present time he will continue to be monitored. His pharmacologic stress nuclear imaging study is as noted above. There are no immediate plans for further evaluation with diagnostic cardiac catheterization. 3. Sick sinus syndrome Reported as having underlying sick sinus syndrome. He did at one time require an ICD for both pacer support and based upon diminished LV systolic function. However that was extracted and Jaskaran to concerns of underlying infection. His cardiac rate and rhythm will be followed. As his medications are adjusted in attempt should be made to avoid significant bradycardia dysrhythmias/ conduction system disease. If he does develop this than his medicines will have to be altered and he may need to be considered, as commented upon by the [facility], for possible been of a new PPM device. 4. ICD extraction The patient did undergo ICD extraction in August this year at the [facility]. This was based on concerns of underlying infectious disease related issues. If he develops recurrent issues with respect of bradycardia dysrhythmias and/or demonstrates evidence of declining LV systolic function over time he may need to be reconsidered for either permanent pacemaker placement or repeat ICD placement. 5. Cardiomyopathy She has been reported by previous medical records as having a non-CAD related cardiomyopathy. He should continue medical management as best as possible. This would include agents such as beta blockers and afterload reducing agent such as KAROL inhibitors or ARB's. His overall LV systolic function will need to be followed for any obvious evidence of decline that would require further evaluation and care. 6. CHF: Chronic systolic He does appear to have evidence of chronic systolic mediated CHF. He has bilateral pleural effusions. He will need to continue medical management. 7. Bilateral pleural effusions The does appear to have a prominent right sided pleural effusion which is not improved with dialysis. He has undergone thoracentesis in the past. It would not be unreasonable to repeat a thoracentesis to assist in improving his underlying pulmonary condition. Hopefully this can be done while his INR is decreased. Once this is done his anticoagulants can be adjusted to increase his INR level. 8. Hypertension His blood pressure can be monitored. His medications can be adjusted as needed. 9. End-stage renal disease on chronic hemodialysis He will need to continue hemodialysis under the direction of nephrology. Comment: The patient's case has been discussed with the patient and the [facility] hospitalist staff. This note was generated with [employer] dictation software. It may contain incorrect words, spelling, and punctuation that were not noted in checking the note before signing.
[2017-10-24] MEDS: Calcium Acetate 667 MG Capsule PO (10:37)
--- NOTE | 2017-10-24 12:02 | PCM.DC ---
You will use the following diet at home:: Cardiac Your food should be the consistency of: Regular Your liquids should be the consistency of: Regular/Thin Discharge Activity: Return to Normal Activity Allergies/Adverse Reactions: Allergies disopyramide [From Norpace] Adverse Reaction (Severe, Verified 10/21/17 20:29) Unknown onion Adverse Reaction (Severe, Verified 10/21/17 20:29) Unknown sotalol Adverse Reaction (Severe, Verified 10/21/17 20:29) Unknown quinaglute Adverse Reaction (Severe, Uncoded 10/21/17 20:29) Unknown Medications to take at Discharge Acetaminophen [Tylenol] 1,000 mg PO Q4H PRN PRN 05/17/15 Calcium Acetate [Phoslo Gel Cap] 667 mg PO TIDCM 05/17/15 Cinacalcet HCl [Sensipar] 30 mg PO DAILY 09/08/15 Omeprazole 20 mg PO BID 02/05/17 Folic Acid/Vit Bcomp,C [Renal-Miguel Angel Tablet] 0.8 mg PO DAILY 05/22/17 Warfarin [Coumadin] 4 mg PO DAILY@1700 08/23/17 metoprolol tartrate 25 mg tablet 25 mg PO BID 09/17/17 nitroglycerin 0.4 mg sublingual tablet 0.4 mg SUBLINGUAL Q5-15M PRN 09/17/17 Fluticasone 0.05% [Flonase Nasal [place]] 2 spray INTRANASAL DAILY PRN PRN 10/23/17 Hydrocodone/Acetaminophen [Hydrocodone-Acetamin 7.5-325] 1 each PO TID PRN 10/23/17 Lisinopril [Prinivil] 20 mg PO DAILY 10/23/17 Nortriptyline HCl [Pamelor] 1 cap PO QHS 10/23/17 Amiodarone HCl [Cordarone] 200 mg PO BID #60 tab 10/24/17 The following prescriptions were given: Amiodarone HCl [Cordarone] 200 mg PO BID #60 tab Primary Care Physician: Conner Lopez MD [Primary Care Provider] - Please follow up with your Primary Care Physician in: 1-2 weeks Please Follow Up With: Conner Bran MD When: 2 weeks Please Follow Up With: Ratna Mejia MD - resume dialysis When: as directed Proposed Discharge Date: 10/24/17
--- NOTE | 2017-10-24 12:05 | DCINST_ITS ---
You will use the following diet at home:: Cardiac Your food should be the consistency of: Regular Your liquids should be the consistency of: Regular/Thin Discharge Activity: Return to Normal Activity Allergies/Adverse Reactions: Allergies disopyramide [From Norpace] Adverse Reaction (Severe, Verified 10/21/17 20:29) Unknown onion Adverse Reaction (Severe, Verified 10/21/17 20:29) Unknown sotalol Adverse Reaction (Severe, Verified 10/21/17 20:29) Unknown quinaglute Adverse Reaction (Severe, Uncoded 10/21/17 20:29) Unknown Medications to take at Discharge Acetaminophen [Tylenol] 1,000 mg PO Q4H PRN PRN 05/17/15 Calcium Acetate [Phoslo Gel Cap] 667 mg PO TIDCM 05/17/15 Cinacalcet HCl [Sensipar] 30 mg PO DAILY 09/08/15 Omeprazole 20 mg PO BID 02/05/17 Folic Acid/Vit Bcomp,C [Renal-Miguel Angel Tablet] 0.8 mg PO DAILY 05/22/17 Warfarin [Coumadin] 4 mg PO DAILY@1700 08/23/17 metoprolol tartrate 25 mg tablet 25 mg PO BID 09/17/17 nitroglycerin 0.4 mg sublingual tablet 0.4 mg SUBLINGUAL Q5-15M PRN 09/17/17 Fluticasone 0.05% [Flonase Nasal [place]] 2 spray INTRANASAL DAILY PRN PRN Hydrocodone/Acetaminophen [Hydrocodone-Acetamin 7.5-325] 1 each PO TID PRN 10/23 Lisinopril [Prinivil] 20 mg PO DAILY 10/23/17 Nortriptyline HCl [Pamelor] 1 cap PO QHS 10/23/17 Amiodarone HCl [Cordarone] 200 mg PO BID #60 tab 10/24/17 The following prescriptions were given: Amiodarone HCl [Cordarone] 200 mg PO BID #60 tab Primary Care Physician: Conner Lopez MD [Primary Care Provider] - Please follow up with your Primary Care Physician in: 1-2 weeks Please Follow Up With: Conner Bran MD When: 2 weeks Please Follow Up With: Ratna Mejia MD - resume dialysis When: as directed Proposed Discharge Date: 10/24/17
--- NOTE | 2017-10-24 12:54 | CASEMGMT ---
Face to Face with patient for initial transition planning/care coordination assessment. [place] introduced self and role at [facility], pt voices understanding and consents to assessment at this time. Pt is sitting up in chair in no distress at this time. Pt is A/O x4 at this time and answers all questions appropriately at this time. Care providers, pharmacy, and demographics verified. See attached link. Pt voices no further concerns/needs at this time. Advised pt to ask for CM if any further questions/concerns/needs arise, voices understanding. PLAN: Home [place]
[2017-10-24] MEDS: Ondansetron 4 MG/2 ML Vial IV (13:03)
[2017-10-24] MEDS: Ipratropium/Albuterol Sulfate 3 ML AMPUL.NEB INHALATION (13:41)
--- NOTE | 2017-10-24 15:45 | PCM.DC.SUM ---
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) Elevated troponin (Chronic) not trending Mitral insufficiency (Chronic) Implantable cardioverter-defibrillator (ICD) in situ (Chronic) implanted in 12/07/2015 at [facility] Sick sinus syndrome (Chronic) S/P dual-chamber Pacemaker/ICD ESRD (end stage renal disease) (Chronic) on HD HTN (hypertension) (Chronic) Pulmonary HTN (Chronic) Anemia with chronic illness (Chronic) ESRD Non-compliance (Chronic) non-compliant with meds and with dialysis Non-compliance with renal dialysis (Chronic) Respiratory failure with hypoxia (Chronic) Bilateral pleural effusion (Chronic) Cardiomyopathy (Chronic) CHF (congestive heart failure) (Chronic) EF 30% Coronary artery arteriosclerosis (Chronic) 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 RAD/Chest PA and Lateral IMPRESSION: Stable bilateral pleural effusions with underlying infiltration and/or atelectasis is worse on the right side. Impression: 1. Rest and stress SPECT cardiac nuclear imaging demonstrate relative uniform tracer uptake and myocardial perfusion appearing within normal limits as well as myocardial perfusion changes appearing compatible with left ventricular dilatation. 2. The gated Cardiolite study reports an LVEF of 36 %. Consults: [facility] - cardiology Operations: None Procedures: None Summary of Care Provided: Physical exam on day of discharge: General: Resting comfortably NAD Psych: A/Ox3 normal affect HEENT: [place] AT [place] Neck: Supple NT CV: RRR no m/t/r/g/h Resp: CTA Abd: [id number] Soft NT no guarding or rigidity Ext: DP2+= no edema Skin: W/D normal turgor Lymph/Heme: No active bleeding or adenopathy Neuro: CN2-12 intact Hospital course: The patient is a 57 year old M with a hx of PAF, ESRD, chronic respiratory failure, COPD, chronic systolic CHF, sick sinus syndrome s/p pacemaker, htn who presented to the ER with palpitations and SOB at dialysis. He presented to the ER and was in AF with RVR with rate into 120s. CXR showed pleural effusions. He had elevated troponin and some intermittent chest pain but these were chronic. Cardiology was consulted. He was placed in the PCU and was started on cardizem drip. He underwent a stress test which was normal. His chest pain was felt to be secondary to his underlying cardiomyopathy. He was placed on amiodarone oral. He will resume warfarin. Please have her warfarin levels checked in 2 days as directed as it may be fluctuant with amiodarone therapy. He remained in stable condition after the stress test, and was discharged home. He will follow up with cardiology, his PCP, and with his candy dipper. This patient was seen by Nehemiah Correia PA-C under the supervision of Doctor Leslie. [] Discharge Diet: Low fat/ Low Cholesterol, 2000 mg Sodium Diet Discharge Activity: Return to Normal Activity Home Medications: Medications to take at Discharge Acetaminophen [Tylenol] 1,000 mg PO Q4H PRN PRN 05/17/15 Calcium Acetate [Phoslo Gel Cap] 667 mg PO TIDCM 05/17/15 Cinacalcet HCl [Sensipar] 30 mg PO DAILY 09/08/15 Omeprazole 20 mg PO BID 02/05/17 Folic Acid/Vit Bcomp,C [Renal-Miguel Angel Tablet] 0.8 mg PO DAILY 05/22/17 Warfarin [Coumadin] 4 mg PO DAILY@1700 08/23/17 metoprolol tartrate 25 mg tablet 25 mg PO BID 09/17/17 nitroglycerin 0.4 mg sublingual tablet 0.4 mg SUBLINGUAL Q5-15M PRN 09/17/17 Fluticasone 0.05% [Flonase Nasal [place]] 2 spray INTRANASAL DAILY PRN PRN 10/23/17 Hydrocodone/Acetaminophen [Hydrocodone-Acetamin 7.5-325] 1 each PO TID PRN 10/23/17 Lisinopril [Prinivil] 20 mg PO DAILY 10/23/17 Nortriptyline HCl [Pamelor] 1 cap PO QHS 10/23/17 Amiodarone HCl [Cordarone] 200 mg PO BID #60 tab 10/24/17 Following Prescrptions Were Given to Patient: Amiodarone HCl [Cordarone] 200 mg PO BID #60 tab Primary Care Physician: Conner Lopez MD [Primary Care Provider] - Please follow up with your Primary Care Physician in: 1-2 weeks Please Follow Up With: Conner Bran MD When: 2 weeks Please Follow Up With: Conner Lopez MD When: 1-2 Weeks Disposition: Home Minutes spent on discharge:: 35 Patient Condition:: Stable Medical Necessity - Tobacco Use Smoking Status: Former smoker Tobacco Use: Chew Meaningful Use Info Meaningful Use Diagnoses (Choose all that apply): None applicable <Joao Nelson - Last Filed: 10/24/17 16:13> Discharge Date and Diagnosis - Secondary Discharge Diagnosis Chronic Problems (Last Updated 10/23/17 @ 19:11 by Dwight Bhardwaj MD) ICD extraction (Chronic) MSSA Bacteremia 08/2017 @[facility] Lung nodule (Chronic) Atrial fibrillation (Chronic) 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) Elevated troponin (Chronic) not trending Mitral insufficiency (Chronic) Implantable cardioverter-defibrillator (ICD) in situ (Chronic) implanted in 12/07/2015 at [facility] Sick sinus syndrome (Chronic) S/P dual-chamber Pacemaker/ICD ESRD (end stage renal disease) (Chronic) on HD HTN (hypertension) (Chronic) Pulmonary HTN (Chronic) Anemia with chronic illness (Chronic) ESRD Non-compliance (Chronic) non-compliant with meds and with dialysis Non-compliance with renal dialysis (Chronic) Respiratory failure with hypoxia (Chronic) Bilateral pleural effusion (Chronic) Cardiomyopathy (Chronic) CHF (congestive heart failure) (Chronic) EF 30% Coronary artery arteriosclerosis (Chronic) 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 I agree with the above notes by the physician commissary assistant. The patient is a 57 year old M presents with chest pain. Patient underwent a cardiac workup which included a stress test which was negative. Additionally, patient was noted to be in atrial fibrillation with RVR. Patient was started on oral amiodarone and has been rate controlled. Patient is otherwise doing well and is discharged to home. [] Discharge Diet: Low fat/ Low Cholesterol, 2000 mg Sodium Diet Discharge Activity: Return to Normal Activity Disposition: Home Patient Condition:: Stable Meaningful Use Info Meaningful Use Diagnoses (Choose all that apply): None applicable Code Visit OBSV E&M: 96387 Observation care discharge
--- NOTE | 2017-10-24 15:55 | DS.PCM_ITS ---
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) Elevated troponin (Chronic) not trending Mitral insufficiency (Chronic) Implantable cardioverter-defibrillator (ICD) in situ (Chronic) implanted in 12/07/2015 at [facility] Sick sinus syndrome (Chronic) S/P dual-chamber Pacemaker/ICD ESRD (end stage renal disease) (Chronic) on HD HTN (hypertension) (Chronic) Pulmonary HTN (Chronic) Anemia with chronic illness (Chronic) ESRD Non-compliance (Chronic) non-compliant with meds and with dialysis Non-compliance with renal dialysis (Chronic) Respiratory failure with hypoxia (Chronic) Bilateral pleural effusion (Chronic) Cardiomyopathy (Chronic) CHF (congestive heart failure) (Chronic) EF 30% Coronary artery arteriosclerosis (Chronic) 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 RAD/Chest PA and Lateral IMPRESSION: Stable bilateral pleural effusions with underlying infiltration and/or atelectasis is worse on the right side. Impression: 1. Rest and stress SPECT cardiac nuclear imaging demonstrate relative uniform tracer uptake and myocardial perfusion appearing within normal limits as well as myocardial perfusion changes appearing compatible with left ventricular dilatation. 2. The gated Cardiolite study reports an LVEF of 36 %. Consults: [facility] - cardiology Operations: None Procedures: None Summary of Care Provided: Physical exam on day of discharge: General: Resting comfortably NAD Psych: A/Ox3 normal affect HEENT: [place] AT [place] Neck: Supple NT CV: RRR no m/t/r/g/h Resp: CTA Abd: [id number] Soft NT no guarding or rigidity Ext: DP2+= no edema Skin: W/D normal turgor Lymph/Heme: No active bleeding or adenopathy Neuro: CN2-12 intact Hospital course: The patient is a 57 year old M with a hx of PAF, ESRD, chronic respiratory failure, COPD, chronic systolic CHF, sick sinus syndrome s/p pacemaker, htn who presented to the ER with palpitations and SOB at dialysis. He presented to the ER and was in AF with RVR with rate into 120s. CXR showed pleural effusions. He had elevated troponin and some intermittent chest pain but these were chronic. Cardiology was consulted. He was placed in the PCU and was started on cardizem drip. He underwent a stress test which was normal. His chest pain was felt to be secondary to his underlying cardiomyopathy. He was placed on amiodarone oral. He will resume warfarin. Please have her warfarin levels checked in 2 days as directed as it may be fluctuant with amiodarone therapy. He remained in stable condition after the stress test, and was discharged home. He will follow up with cardiology, his PCP, and with his nuclear medical tech. This patient was seen by Nehemiah Correia PA-C under the supervision of Doctor Leslie. [] Discharge Diet: Low fat/ Low Cholesterol, 2000 mg Sodium Diet Discharge Activity: Return to Normal Activity Home Medications: Medications to take at Discharge Acetaminophen [Tylenol] 1,000 mg PO Q4H PRN PRN 05/17/15 Calcium Acetate [Phoslo Gel Cap] 667 mg PO TIDCM 05/17/15 Cinacalcet HCl [Sensipar] 30 mg PO DAILY 09/08/15 Omeprazole 20 mg PO BID 02/05/17 Folic Acid/Vit Bcomp,C [Renal-Miguel Angel Tablet] 0.8 mg PO DAILY 05/22/17 Warfarin [Coumadin] 4 mg PO DAILY@1700 08/23/17 metoprolol tartrate 25 mg tablet 25 mg PO BID 09/17/17 nitroglycerin 0.4 mg sublingual tablet 0.4 mg SUBLINGUAL Q5-15M PRN 09/17/17 Fluticasone 0.05% [Flonase Nasal [place]] 2 spray INTRANASAL DAILY PRN PRN Hydrocodone/Acetaminophen [Hydrocodone-Acetamin 7.5-325] 1 each PO TID PRN 10/23 Lisinopril [Prinivil] 20 mg PO DAILY 10/23/17 Nortriptyline HCl [Pamelor] 1 cap PO QHS 10/23/17 Amiodarone HCl [Cordarone] 200 mg PO BID #60 tab 10/24/17 Following Prescrptions Were Given to Patient: Amiodarone HCl [Cordarone] 200 mg PO BID #60 tab Primary Care Physician: Conner Lopez MD [Primary Care Provider] - Please follow up with your Primary Care Physician in: 1-2 weeks Please Follow Up With: Conner Bran MD When: 2 weeks Please Follow Up With: Conner Lopez MD When: 1-2 Weeks Disposition: Home Minutes spent on discharge:: 35 Patient Condition:: Stable Medical Necessity - Tobacco Use Smoking Status: Former smoker Tobacco Use: Chew Meaningful Use Info Meaningful Use Diagnoses (Choose all that apply): None applicable <Joao Nelson - Last Filed: 10/24/17 16:13> Discharge Date and Diagnosis - Secondary Discharge Diagnosis Chronic Problems (Last Updated 10/23/17 @ 19:11 by Dwight Bhardwaj MD) ICD extraction (Chronic) MSSA Bacteremia 08/2017 @[facility] Lung nodule (Chronic) Atrial fibrillation (Chronic) jail current use of anticoagulant (Chronic) Elevated troponin (Chronic) not trending Mitral insufficiency (Chronic) Implantable cardioverter-defibrillator (ICD) in situ (Chronic) implanted in 12/07/2015 at [facility] Sick sinus syndrome (Chronic) S/P dual-chamber Pacemaker/ICD ESRD (end stage renal disease) (Chronic) on HD HTN (hypertension) (Chronic) Pulmonary HTN (Chronic) Anemia with chronic illness (Chronic) ESRD Non-compliance (Chronic) non-compliant with meds and with dialysis Non-compliance with renal dialysis (Chronic) Respiratory failure with hypoxia (Chronic) Bilateral pleural effusion (Chronic) Cardiomyopathy (Chronic) CHF (congestive heart failure) (Chronic) EF 30% Coronary artery arteriosclerosis (Chronic) 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 The patient is a 57 year old M presents with chest pain. Patient underwent a cardiac workup which included a stress test which was negative. Additionally, patient was noted to be in atrial fibrillation with RVR. Patient was started on oral amiodarone and has been rate controlled. Patient is otherwise doing well and is discharged to home. [] Discharge Diet: Low fat/ Low Cholesterol, 2000 mg Sodium Diet Discharge Activity: Return to Normal Activity Disposition: Home Patient Condition:: Stable Meaningful Use Info Meaningful Use Diagnoses (Choose all that apply): None applicable Code Visit OBSV E&M: 87983 Observation care discharge
== END 2017-10-24 14:52 | disposition home or self-care (01) | DRG 308 ==
LOC: ED 17:33 → PCU 19:23
PROVIDERS: Admitting Provider Hospitalist; Emergency Provider Emergency Medicine; Family Provider Family Medicine; PCP Family Medicine
DX: I48.0 Paroxysmal atrial fibrillation (principal); N18.6 End stage renal disease; J96.11 Chronic respiratory failure with hypoxia; I13.2 Hypertensive heart and chronic kidney disease with heart failure and with stage 5 chronic kidney disease, or end stage renal disease; I50.22 Chronic systolic (congestive) heart failure; Z99.81 Dependence on supplemental oxygen; I42.9 Cardiomyopathy, unspecified; Z99.2 Dependence on renal dialysis; J44.9 Chronic obstructive pulmonary disease, unspecified; Z87.891 Personal history of nicotine dependence; Z90.5 Acquired absence of kidney; Z85.528 Personal history of other malignant neoplasm of kidney; Z95.0 Presence of cardiac pacemaker; Z79.01 Long term (current) use of anticoagulants; I27.20 Pulmonary hypertension, unspecified; D63.8 Anemia in other chronic diseases classified elsewhere; I25.10 Atherosclerotic heart disease of native coronary artery without angina pectoris; I34.0 Nonrheumatic mitral (valve) insufficiency
CPT/HCPCS: 36415; 71045; 71046; 78452; 80048; 83735; 84484; 85025; 85610; 85730; 87493; 87506; 93005; 93017; 94640; 97162; 97802; 99285; A9500; J7030; A4216; J2405; J2785

== ENCOUNTER → 2017-10-29 14:30 | Outpatient (CLI) | payer MEDICARE, MEDICAID, SELFPAY ==
--- NOTE | 2017-10-29 14:30 | DT_ITS ---
This patient was seen during an EMR downtime October 28, 2017 - November 04, 2017. This patient may have a combination of paper and electronic documentation or all paper documentation. All documentation is viewable within the e-chart portion of [facility] for each patient visit.
[2017-11-04 17:30] LABS: International Normalized Ratio 2.4; Prothrombin Time (Protime)PT. 26.2 SECONDS (11.7-14.9)
== END ==
PROVIDERS: Family Provider Family Medicine; PCP Family Medicine; Visit Provider Physician Assistant
DX: I48.91 Unspecified atrial fibrillation (principal); Z79.01 Long term (current) use of anticoagulants
CPT/HCPCS: 36415; 85610

== ENCOUNTER → 2017-11-21 14:02 | Outpatient (CLI) | payer MEDICARE, MEDICAID, SELFPAY ==
[2017-11-21 15:38] LABS: International Normalized Ratio 1.3; Prothrombin Time (Protime)PT. 16.3 SECONDS (11.7-14.9)
== END ==
PROVIDERS: Family Provider Family Medicine; PCP Family Medicine; Visit Provider Internal Medicine Cardiovascular Disease
DX: I48.91 Unspecified atrial fibrillation (principal); Z79.01 Long term (current) use of anticoagulants
CPT/HCPCS: 36415; 85610

== ENCOUNTER 2017-11-26 12:37 | Emergency (ER) | payer MEDICARE, MEDICAID, SELFPAY ==
[2017-11-26 12:39] VITALS: BP 145/97; PULSE 64; RESP 22; TEMP 36.8; O2SAT 83; BMI 19.3
--- NOTE | 2017-11-26 13:05 | RAD_ITS ---
STUDY: X-RAY CHEST REASON FOR EXAM: Male, 57 years old. Chest pain. Fatigue and shortness of breath. TECHNIQUE: Single AP portable view of the chest. COMPARISON: Comparison is made with prior study dated October 23, 2017. FINDINGS: EKG electrodes are seen. Bilateral pleural effusions with underlying infiltration and/or atelectasis is worse on the right side. There is borderline cardiomegaly. Normal mediastinum and butch. Normal visualized pulmonary arteries. There is atherosclerotic calcification of the aortic arch with tortuosity. Normal visualized thoracic spine. Normal visualized ribs, clavicles, and shoulders. There is no demonstrated abnormality of the visualized soft tissue structures of the upper abdomen. RAD/Chest 1 View (Portable) IMPRESSION: Bilateral pleural effusions with bibasilar infiltration and/or atelectasis is worse at the right lung base. This has progressed since prior study. Electronically Signed: Michel Bustillo MD at 13:37 EDT Tel [phone], Service support ,
--- NOTE | 2017-11-26 13:05 | EKG12_ITS ---
Test Reason : CP Blood Pressure : / mmHG Vent. Rate : 060 BPM Atrial Rate : 060 BPM P-R Int : 186 ms QRS Dur : 106 ms QT Int : 486 ms P-R-T Axes : 026 -12 119 degrees QTc Int : 486 ms Normal sinus rhythm ST & T wave abnormality, consider lateral ischemia Prolonged QT Abnormal ECG Confirmed by OLIVER CAMPOS, JAMIR ([id number]), scientific editor KULDIP MASON ([id number] on 11/28/2017 2:28:59 PM Referred By: MEMO/JORY Confirmed By:JAMIR BOYD MD
[2017-11-26 13:17] LABS: Hematocrit 44.2 % (40-54); Hemoglobin 13.3 g/dl (13.0-16.5); Mean Corp Hgb Conc 30.1 g/gl (32-36); Mean Corpuscular Hgb 26.7 pg (27.0-32.0); Mean Corpuscular Volume 88.6 fL (80-94); Mean Platelet Vol. 9.1 fl (6.2-12.0); POSITIVE COUNT NO; POSITIVE DIFFERENTIAL NO; POSITIVE MORPHOLOGY NO; Platelet Count 222 K/mm3 (150-450); RBC Distribution Width CV 17.2 % (11.6-14.6); RBC Distribution Width SD 55.3 fl (35.1-43.9); Red Blood Count 4.99 M/mm3 (4.6-6.2); White Blood Count 12.7 K/mm3 (4.4-11.0)
[2017-11-26 13:27] LABS: Anion Gap 8 (5-15); BUN 27 mg/dL (7-18); Calcium,Total 8.5 mg/dL (8.5-10.1); Chloride 96 mmol/L (98-107); Creatinine, Serum 5.42 mg/dL (0.70-1.30); EST Glomerular Filtration Rate 12 mL/min (>60); Est Glom Filt Rate - Afr Amer 14 mL/min (>60); Estimated Creatinine Clearance 11.79 ml/min; Glucose 91 mg/dL (74-106); Sodium Level 137 mmol/L (136-145)
[2017-11-26] MEDS: Aspirin 81 MG TAB.CHEW 324 MG PO (13:38)
[2017-11-26 14:14] VITALS: BP 176/110; PULSE 58; RESP 18; O2SAT 97
[2017-11-26 14:37] LABS: Eosinophils% 5.4 % (0-5); Lymphocyte % 6.8 % (19-41); Monocyte% 6.3 % (0-10); Neutrophil % 80.4 % (47-70)
[2017-11-26 14:38] LABS: Absolute Lymphocyte Count 0.84 X10^3/ul (0.83-4.51); Absolute Neutrophil Count 9.9 X10^3/uL (2.0-7.7); Basophil# 0.12 X10^3/uL; Eosinophil# 0.67 X10^3/uL; Lymphocyte # 0.84 X10^3/ul (4.0); Monocyte# 0.78 X10^3/uL; Neutrophil # 9.89 X10^3/uL (2.7-7.7)
--- NOTE | 2017-11-26 15:16 | ED.DCSUM_ITS ---
- ER Visit Summary Date of Service: 11/26/17 Chief Complaint: Chest pain History of Present Illness: The patient is a [address] Gould, Dr. Portillo , and Dr. Streeter. He reports he has chest pain that began yesterday. It is a continuous throbbing pain that waxes and wanes. Stated 10 hours and 510 currently. Is worsened by exertion relieved by nothing. Reports he does have mild shortness of breath. He denies any diaphoresis with this. He reports he was nauseated and vomited twice yesterday. No blood in his emesis. Patient reports that he has an occasional cough that he relates to allergies and is not unusual for him. He denies any fever or chills. Physical Examination: Vitals: Stable. Afebrile. General: Well-nourished and well-developed. Head: Normocephalic atraumatic. Neck: Supple, no lymphadenopathy. No JVD. Nontender. Cardiovascular: Regular rate and rhythm. 2 out of 6 systolic murmur. Respiratory: No respiratory distress. Clear to auscultation bilaterally. Very poor air movement in his breath sounds are distal. Abdominal: Soft, nontender, nondistended, normal bowel sounds. No guarding, rebound, or peritoneal signs. Back: Nontender. Extremities: Nontender, 2+ pitting edema lower extremities bilaterally. Skin: Normal color, no rash. Neurologic: Alert and oriented ?3. Cranial nerves II through XII are intact. Normal strength and sensation. Psych: Normal affect. Test Results: EKG is sinus at 60 with old T-wave inversions in leads V5, V6, I, and aVL. This is unchanged from prior EKGs. Chest x-ray shows bilateral pleural effusions with bibasilar atelectasis. Right greater than left. This is progressed since his prior study. CBC is more for white count of 12.7 with 87 neutrophils and 7 lymphs lites. Chem-7 is more for chloride of 96, CO2 33, BUN 27, creatinine 5.42. Troponin is 0.065. His troponin has ranged between 0.049-0.11 and 2018. Emergency Department Course and Treatment: Patient's pulse ox is 96% on 2 L which is his home O2. He is resting comfortably. Treatment Plan: He was discussed with Dr. Gould. He had a stress test October 23 that was unremarkable. It is not felt that any further cardiac evaluation needs to be undertaken at this time. The patient's wound was discussed with Dr. Mejia. It will be very difficult to have these pleural effusions resolve with dialysis as the patient goes into A. fib RVR if he has too much volume taken off. Patient was then discussed with Dr. Bustillo. He has taken a dose of Eliquis approximately 4 hours ago. Had a prolonged discussion the patient about treatment options. He would like to have thoracentesis. We arranged for this to be performed at 9:30 AM on Saturday. He is instructed to hold his Eliquis until then. Return to the emergency department for any worsening symptoms. Disposition: To home in improved and stable condition. Impression: 1. Bilateral pleural effusions. 2. Atypical chest pain. 3. End-stage renal disease. 4. Coagulopathy on Eliquis. This note was generated with [employer] dictation software. It may contain incorrect words, spelling, and punctuation that were not noted in review of the chart prior to signing ED Disposition - Plan for ED Patient: Disposition: Home or Assisted Living Chief Complaint: Chest Pain Instructions: ED Effusion Pleural Referrals: Conner Lopez MD [Primary Care Provider] - 3-5 Days if not improving Additional Instructions: Don't take your Eliquis this afternoon , Saturday, , or Saturday morning. You are scheduled to have ultrasound guided thoracentesis Saturday at 9: 30. Go to central registration in the hospital at 9:00 to check in for the procedure. You can take your Eliquis again 8 hours after having the thoracentesis. Take twice a day as prescribed again beginning Saturday.
[2017-11-26 15:32] VITALS: BP 173/100; PULSE 57; RESP 18; O2SAT 98
== END 2017-11-26 15:32 | disposition home or self-care (01) ==
LOC: ED 13:14
PROVIDERS: Emergency Provider Emergency Medicine; Family Provider Family Medicine; PCP Family Medicine
DX: J90 Pleural effusion, not elsewhere classified (principal); R07.89 Other chest pain; D68.9 Coagulation defect, unspecified; I13.2 Hypertensive heart and chronic kidney disease with heart failure and with stage 5 chronic kidney disease, or end stage renal disease; I50.9 Heart failure, unspecified; N18.6 End stage renal disease; I25.10 Atherosclerotic heart disease of native coronary artery without angina pectoris; J44.9 Chronic obstructive pulmonary disease, unspecified; I48.91 Unspecified atrial fibrillation; I27.20 Pulmonary hypertension, unspecified; I25.2 Old myocardial infarction; D63.1 Anemia in chronic kidney disease; Z90.5 Acquired absence of kidney; Z99.2 Dependence on renal dialysis; Z95.810 Presence of automatic (implantable) cardiac defibrillator; Z79.01 Long term (current) use of anticoagulants; Z99.81 Dependence on supplemental oxygen; Z79.899 Other long term (current) drug therapy
CPT/HCPCS: 71045; 80048; 84484; 85025; 93005; 99284; A4216

== ENCOUNTER 2017-11-28 15:49 | Inpatient (IN) | payer MEDICARE, MEDICAID, SELFPAY ==
[2017-11-28] VITALS (13 sets, daily range): BP systolic 140–158; BP diastolic 100–122; PULSE 92–115; RESP 18–22; TEMP 36.4–36.9; O2SAT 92–100; BMI 19.6; BMI 20.2; BMI 20.3; BMI 19.7
--- NOTE | 2017-11-28 15:53 | EKG12_ITS ---
Test Reason : SOB Blood Pressure : / mmHG Vent. Rate : 100 BPM Atrial Rate : 105 BPM P-R Int : 000 ms QRS Dur : 116 ms QT Int : 342 ms P-R-T Axes : 000 -31 126 degrees QTc Int : 441 ms Atrial fibrillation Left axis deviation ST & T wave abnormality, consider lateral ischemia Abnormal ECG Confirmed by OLIVER CAMPOS, JAMIR ([id number]), department editor KULDIP MASON ([id number]) on 12/02/2017 2:43:55 PM Referred By: REMI
--- NOTE | 2017-11-28 16:13 | RAD_ITS ---
STUDY: X-RAY CHEST REASON FOR EXAM: Male, 57 years old. Shortness of breath TECHNIQUE: PA and lateral views of the chest. COMPARISON: Prior study of 11/26/2017 FINDINGS: There are atelectatic changes of the lung bases. There are small bilateral pleural effusions, right side larger than left. There is mild cardiac enlargement. Normal mediastinum and butch. Normal visualized pulmonary arteries. Normal visualized aortic arch and descending thoracic aorta. Normal visualized thoracic spine. Normal visualized ribs, clavicles, and shoulders. There is no demonstrated abnormality of the visualized soft tissue structures of the upper abdomen. RAD/Chest PA and Lateral IMPRESSION: Mild cardiomegaly. Bibasilar atelectasis. Small bilateral effusions, right side larger than left. Findings are similar to the previous study of 11/26/2017. Electronically Signed: Romero Morgan MD at 16:44 EDT , Service support ,
[2017-11-28 16:40] LABS: Absolute Lymphocyte Count 0.75 X10^3/ul (0.83-4.51); Absolute Neutrophil Count 10.1 X10^3/uL (2.0-7.7); Basophil# 0.14 X10^3/uL; Basophil% 1.1 % (0-1); Eosinophil# 0.82 X10^3/uL; Eosinophils% 6.4 % (0-5); Hemoglobin 12.7 g/dl (13.0-16.5); Lymphocyte # 0.75 X10^3/ul (4.0); Lymphocyte % 5.9 % (19-41); Mean Corpuscular Volume 87.2 fL (80-94); Mean Platelet Vol. 8.8 fl (6.2-12.0); Monocyte# 0.94 X10^3/uL; Monocyte% 7.4 % (0-10); Neutrophil # 10.06 X10^3/uL (2.7-7.7); Platelet Count 208 K/mm3 (150-450); RBC Distribution Width CV 17.3 % (11.6-14.6); RBC Distribution Width SD 55.5 fl (35.1-43.9); White Blood Count 12.7 K/mm3 (4.4-11.0)
--- NOTE | 2017-11-28 16:48 | ED.RN ---
CREAT 7.55
[2017-11-28 16:49] LABS: Anion Gap 12 (5-15); BUN 41 mg/dL (7-18); BUN/Creat Ratio 5.4 RATIO (10-20); Calcium,Total 8.4 mg/dL (8.5-10.1); Chloride 96 mmol/L (98-107); Creatinine, Serum 7.55 mg/dL (0.70-1.30); EST Glomerular Filtration Rate 8 mL/min (>60); Est Glom Filt Rate - Afr Amer 10 mL/min (>60); Estimated Creatinine Clearance 8.59 ml/min; Glucose 81 mg/dL (74-106); Potassium 4.1 mmol/L (3.5-5.1); Sodium Level 138 mmol/L (136-145)
[2017-11-28 16:52] LABS: POSITIVE COUNT NO; POSITIVE DIFFERENTIAL NO; POSITIVE MORPHOLOGY NO
--- NOTE | 2017-11-28 17:51 | ED.DCSUM_ITS ---
- ER Visit Summary Date of Service: 11/28/17 Chief Complaint: Shortness of breath History of Present Illness: The patient is a [address] Gould, Dr. Portillo , and Dr. Balbuena. He reports that he has shortness of breath began 3 days ago and is much worse today. He was seen in emergency department 2 days ago and was scheduled to have thoracentesis of a right pleural effusion tomorrow. Patient reports that he is much worse today. Patient reports he has moderate shortness of breath now and severe shortness of breath with exertion. Patient also reports that he has had a dry cough for the past 3 days. States that this is an occasional cough and it is nonproductive. He denies any fever or chills. He has had constant left-sided chest pain for the past 2 days. Describes this as a dull, aching pain that is 4 out of 10 currently and 10 out of 10 at worst. Physical Examination: Vitals: Stable. Afebrile. General: Well-nourished and well-developed. Head: Normocephalic atraumatic. Neck: Supple, no lymphadenopathy. No JVD. Nontender. Cardiovascular: Tachycardic irregular rhythm with a 2 out of 6 systolic murmur. Respiratory: No respiratory distress. Poor air movement. No breath sounds at the bases bilaterally. Abdominal: Soft, nontender, nondistended, normal bowel sounds. No guarding, rebound, or peritoneal signs. Back: Nontender. Extremities: Nontender, 2+ pitting edema over lower extremes bilaterally. Skin: Normal color, no rash. Neurologic: Alert and oriented ?3. Cranial nerves II through XII are intact. Normal strength and sensation. Psych: Normal affect. Test Results: EKG is A. fib at 100 with T-wave inversions in leads I, aVL, V5, and V6. This is unchanged from October 13, 2017. Chest x-ray shows mild cardiomegaly, bibasilar atelectasis, small bilateral pleural effusions right greater than left. Unchanged from November 26. CBC is marked for white count 12.7 with a hemoglobin of 12.7. 797 neutrophils, 6 monocytes, 6 eosinophils. Chem- 7 more for chloride 96, BUN 41, creatinine 7.55, calcium 8.4. Bone 0.057. Of note it was 0.065 on November 26. It is been 0.049-0.21 in 2018. Emergency Department Course and Treatment: Patient was given albuterol and Atrovent aerosols. Is given dose of Cardizem IV. Is given dose of Lovenox subcu. Treatment Plan: Patient was discussed with Dr. Schmid. I am unsure whether or not the pleural effusion is the source of his dyspnea. He also has a history of pulmonary hypertension and COPD. It is felt that the best course of action would be to admit the patient do an ultrasound pleural effusions tomorrow. Give him a dose of Lovenox tonight. The patient was discussed with Dr. Bhardwaj. Disposition: Admitted in stable condition. Impression: 1. Atrial fibrillation with RVR. 2. Pleural effusions. 3. Pulmonary hypertension. 4. COPD. This note was generated with FilterSureation software. It may contain incorrect words, spelling, and punctuation that were not noted in review of the chart prior to signing ED Disposition - Plan for ED Patient: Chief Complaint: Shortness of Breath Referrals: Conner Lopez MD [Primary Care Provider] -
[2017-11-28] MEDS: Ipratropium/Albuterol Sulfate 3 ML AMPUL.NEB INHALATION (17:59)
[2017-11-28] MEDS: predniSONE 20 MG Tablet 40 MG PO (18:03)
[2017-11-28] MEDS: dilTIAZem 25 MG/5 ML Vial 20 MG IV BOLUS (18:05)
[2017-11-28] MEDS: Enoxaparin 60 MG/0.6 ML Syringe SC (18:11)
--- NOTE | 2017-11-28 18:37 | HP.PCM_ITS ---
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 (5) Elevated troponin Status: Chronic Comment: not trending (6) Mitral insufficiency Status: Chronic (7) Implantable cardioverter-defibrillator (ICD) in situ Status: Chronic Comment: implanted in 12/07/2015 at [facility] (8) Sick sinus syndrome Status: Chronic Comment: S/P dual-chamber Pacemaker/ICD (9) ESRD (end stage renal disease) Status: Chronic Comment: on HD (10) HTN (hypertension) Status: Chronic (11) Pulmonary HTN Status: Chronic (12) Anemia with chronic illness Status: Chronic Comment: ESRD (13) Non-compliance Status: Chronic Comment: non-compliant with meds and with dialysis (14) Non-compliance with renal dialysis Status: Chronic (15) Respiratory failure with hypoxia Status: Chronic (16) Bilateral pleural effusion Status: Chronic (17) Cardiomyopathy Status: Chronic (18) CHF (congestive heart failure) Status: Chronic Comment: EF 30% (19) Coronary artery arteriosclerosis Status: Chronic (20) 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 Patient states this began Saturday and he presented to the emergency room at that time. He states he was discharged from the emergency room and scheduled for outpatient thoracentesis for right pleural effusion this coming 11/29/2017. He states his shortness of breath continued to worsen since that time which brought him back to the emergency room. Patient also complains of ongoing chest pain. He describes a constant aching pain on the left side of his chest. He has had similar symptoms in the past. He denies fever, chills. States he occasionally has a dry cough which is chronic for him. Denies dizziness, lightheadedness, palpitations. Patient has a past medical history of chronic atrial fibrillation, chronic elevated troponin, chronic chest pain, COPD, chronic systolic CHF, cardiomyopathy, chronic hypoxic respiratory failure, end-stage renal disease on hemodialysis, hypertension, anemia of chronic disease, pulmonary hypertension, sick sinus syndrome status post dual chamber pacemaker/ICD. 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) Elevated troponin (Chronic) not trending Mitral insufficiency (Chronic) Implantable cardioverter-defibrillator (ICD) in situ (Chronic) implanted in 12/07/2015 at [facility] Sick sinus syndrome (Chronic) S/P dual-chamber Pacemaker/ICD ESRD (end stage renal disease) (Chronic) on HD HTN (hypertension) (Chronic) Pulmonary HTN (Chronic) Anemia with chronic illness (Chronic) ESRD Non-compliance (Chronic) non-compliant with meds and with dialysis Non-compliance with renal dialysis (Chronic) Respiratory failure with hypoxia (Chronic) Bilateral pleural effusion (Chronic) Cardiomyopathy (Chronic) CHF (congestive heart failure) (Chronic) EF 30% Coronary artery arteriosclerosis (Chronic) 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 COPD (chronic obstructive pulmonary disease) (Chronic) History of nephrectomy (Chronic) History of kidney cancer (Chronic) Chest pain (Chronic) Medical History: Medical History (Last Reviewed 11/05/17 @ 14:10 by Terence Gould MD) Atrial fibrillation (Chronic) I48.91 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) Z79.01 ESRD (end stage renal disease) (Chronic) N18.6 on HD HTN (hypertension) (Chronic) I10 Pulmonary HTN (Chronic) I27.2 Anemia with chronic illness (Chronic) D63.8 ESRD Non-compliance (Chronic) Z91.19 non-compliant with meds and with dialysis Non-compliance with renal dialysis (Chronic) Z91.15 Respiratory failure with hypoxia (Chronic) J96.91 Bilateral pleural effusion (Chronic) J90 Cardiomyopathy (Chronic) I42.9 CHF (congestive heart failure) (Chronic) I50.9 EF 30% Coronary artery arteriosclerosis (Chronic) I25.10 Parathyroid disease (Chronic) E21.5 due to ESRD COPD (chronic obstructive pulmonary disease) (Chronic) J44.9 History of kidney cancer (Chronic) Z85.528 Chest pain (Chronic) R07.9 Ulcer of foot (Resolved) L97.509 Allergies onion Adverse Reaction (Severe, Verified 11/28/17 17:44) Unknown Home Medications: Ambulatory Orders Medication Instructions Recorded Acetaminophen [Tylenol] 1,000 mg PO Q4H PRN PRN 05/17/15 Calcium Acetate [Phoslo Gel Cap] 667 mg PO TIDCM 05/17/15 Cinacalcet HCl [Sensipar] 30 mg PO DAILY 09/08/15 Folic Acid/Vit Bcomp,C [Renal-Miguel Angel 0.8 mg PO DAILY 05/22/17 Tablet] metoprolol tartrate 25 mg tablet 25 mg PO BID 09/17/17 nitroglycerin 0.4 mg sublingual 0.4 mg SUBLINGUAL Q5-15M PRN 09/17/17 tablet Fluticasone 0.05% [Flonase Nasal 2 spray INTRANASAL DAILY PRN PRN 10/23/17 [place]] Lisinopril [Prinivil] 20 mg PO DAILY 10/23/17 Nortriptyline HCl [Pamelor] 25 mg PO QHS 10/23/17 omeprazole 20 mg capsule,delayed 20 mg PO BID #60 cap 11/25/17 release Amiodarone HCl [Cordarone] 200 mg PO BID 11/26/17 Apixaban [Eliquis] 2.5 mg PO BID 11/26/17 Albuterol Sulfate [Ventolin Hfa] 1 - 2 puff IH Q4H PRN PRN 11/28/17 Hydroxyzine Pamoate [Hydroxyzine 50 mg PO TID PRN PRN 11/28/17 Pamoate] Surgical History: Surgical History (Last Reviewed 11/28/17 @ 18:36 by BIANCA Madrid) History of nephrectomy (Chronic) Z98.890, Z90.5 Surgical History: - - AVF placement PAIGE, left nephrectomy for cancer, aicd in Lives: Spouse/ Significant Other Smoking Status: Former smoker Tobacco Use: Chew Alcohol: None Drugs: None - *Family History Maternal History Items: No pertinent history, - - Patient's mother at age of 73 with a history of end-stage renal failure. Paternal History Items: Renal Disease, - - The patient's mother at age of 69 with a history of kidney cancer. Review of Systems Constitutional: Reports: Weight Change - -20 lbs, over unknown length of time. Denies: Chills, Fever HEENT: Denies: Head Aches, Sinus Congestion, Sinus Drainage Cardiovascular: Reports: Chest Pain, Edema - Bilateral lower extremity, Orthopnea. Denies: Light Headedness, Palpitations, Syncope Respiratory: Reports: Cough - Chronic nonproductive, Shortness of Breath. Denies: Sputum production Gastrointestinal: Denies: Abdominal Pain, Nausea, Vomiting Genitourinary: Denies: Dysuria Musculoskeletal: Denies: Joint Pain, Joint Tenderness Skin: Reports: - - Chronic scattered scabbing secondary to picking Neurological: Denies: Numbness, Tingling, Focal weakness Psychiatric: Denies: Anxiety, Depression, Homicidal Ideations, Suicidal Ideations Hematologic/ Lymphatic: Denies: Easy Bruising, Easy Bleeding VTE Information - Inpt Only VTE Present on Admission: No VTE Mechan Device Prophylaxis: None VTE Pharm Prophylaxis ordered?: Yes - Physical Exam General: Alert, Oriented x3, Cooperative, No apparent distress HEENT: Atraumatic, PERRLA, EOMI, Normocephalic Oral: Dry Mucosa, - - Dryness/scabbing of lips Neck: Supple, No JVD, Negative Carotid Bruits Lungs: Clear to auscultation, Diminished Cardiovascular: - - Atrial for ablation, rate control. Abdomen: Bowel Sounds Present, Soft, Non Tender, Non-Distended Extremities: No clubbing, No cyanosis, Capillary Refill Less than 3 Seconds, Edema - +1-2 bilateral lower extremities Skin: No rashes, No breakdown, - - Scattered scabbing secondary to patient picking. Worse on lower extremities, however present on back and bilateral arms. Musculoskeletal: No Tenderness to Palpation of Joints or Extremities, Cachexia Neurological: Cranial nerves II-XII grossly intact, Neuro grossly intact Psych/Mental Status: Normal Affect, Appropriate Vital Signs Temp Pulse Resp BP Pulse Ox 97.5 F L 95 19 H 145/120 H 99 11/28/17 15:52 11/28/17 18:15 11/28/17 18:15 11/28/17 18:15 11/28/17 18:15 Oxygen Flow Rate (L/min) 4 Oxygen Delivery Method Nasal Cannula Weight: 58.8 kg Body Mass Index (BMI) 20.2 Laboratory Tests Past 24 Hrs 11/28/17 11/28/17 16:10 16:10 WBC 12.7 H RBC 4.70 Hgb 12.7 L Hct 41.0 MCV 87.2 MCH 27.0 MCHC 31.0 L RDW 17.3 H RDW Differential 55.5 H Plt Count 208 MPV 8.8 Immature Gran % (Auto) 0.200 Neut % (Auto) 79.0 H Lymph % (Auto) 5.9 L [place] % (Auto) 7.4 Eos % (Auto) 6.4 H Baso % (Auto) 1.1 H Absolute Neuts (auto) 10.1 H Absolute Lymphs (auto) 0.75 L Total Counted Not Reportable Sodium 138 Potassium 4.1 Chloride 96 L Carbon Dioxide 30.0 Anion Gap 12 BUN 41 H Creatinine 7.55 H* Estim Creat Clear Calc 8.59 Est GFR (MDRD) Af Amer 10 L Est GFR (MDRD) Non-Af 8 L BUN/Creatinine Ratio 5.4 L Glucose 81 Calcium 8.4 L Troponin I 0.057 H Assessment/Plan All Active Problems (Last Reviewed 11/05/17 @ 14:10 by Terence Gould MD) Ulcer of foot (Resolved) 1. Worsening shortness of breath/pleural effusions-chest x-ray on admission with small bilateral pleural effusions, right greater than left. Findings similar to previous study 11/26/2017. Continue supplement oxygen to maintain O2 at or above 90%. Patient follows with Dr. Kunz. Consult pulmonary medicine. 2. COPD/chronic hypoxic respiratory failure-chronically wears 2 L nasal cannula. States he has been increasing his oxygen to 3 L nasal cannula. Wean oxygen as tolerated to maintain O2 at or above 90%. No signs of acute COPD exacerbation. Albuterol and DuoNeb aerosols. 3. Paroxysmal atrial fibrillation-rate currently controlled with intermittent mild tachycardia. Continue home amiodarone, metoprolol regimen. Hold Eliquis. Consult cardiology. 4. Chronic chest pain/chronic elevated troponin-recent stress test 10/24/2017 without evidence of ischemia. LVEF 36%. 5. Chronic systolic CHF/cardiomyopathy/sick sinus syndrome-status post AICD removal secondary to MSSA bacteremia. Continue home lisinopril, metoprolol. 6. End-stage renal disease-on hemodialysis Saturday, Saturday, Saturday. Follows with Dr. Balbuena. Consult nephrology. 7. Anemia of chronic disease-stable. 8. Hypertension-continue home lisinopril, metoprolol regimen. 9. GERD-continue home omeprazole regimen. DVT prophylaxis-therapeutic dose Lovenox subcu. This patient was seen by BIANCA Madrid under the supervision of Dr. Bhardwaj. <BentonDwight E - Last Filed: 11/28/17 19:17> History of Present Illness The patient is a 57 year old M [] Past Medical History Medical History: Medical History (Last Reviewed 11/05/17 @ 14:10 by Terence Gould MD) Atrial fibrillation (Chronic) I48.91 group home current use of anticoagulant (Chronic) Z79.01 ESRD (end stage renal disease) (Chronic) N18.6 on HD HTN (hypertension) (Chronic) I10 Pulmonary HTN (Chronic) I27.2 Anemia with chronic illness (Chronic) D63.8 ESRD Non-compliance (Chronic) Z91.19 non-compliant with meds and with dialysis Non-compliance with renal dialysis (Chronic) Z91.15 Respiratory failure with hypoxia (Chronic) J96.91 Bilateral pleural effusion (Chronic) J90 Cardiomyopathy (Chronic) I42.9 CHF (congestive heart failure) (Chronic) I50.9 EF 30% Coronary artery arteriosclerosis (Chronic) I25.10 Parathyroid disease (Chronic) E21.5 due to ESRD COPD (chronic obstructive pulmonary disease) (Chronic) J44.9 History of kidney cancer (Chronic) Z85.528 Chest pain (Chronic) R07.9 Ulcer of foot (Resolved) L97.509 Allergies onion Adverse Reaction (Severe, Verified 11/28/17 17:44) Unknown Surgical History: Surgical History (Last Reviewed 11/28/17 @ 18:36 by BIANCA Madrid) History of nephrectomy (Chronic) Z98.890, Z90.5 - Physical Exam Vital Signs Temp Pulse Resp BP Pulse Ox 97.5 F L 95 19 H 145/120 H 99 11/28/17 15:52 11/28/17 18:15 11/28/17 18:15 11/28/17 18:15 11/28/17 18:15 Oxygen Flow Rate (L/min) 4 Oxygen Delivery Method Nasal Cannula Weight: 129 lb 10.109 oz Body Mass Index (BMI) 20.2 Laboratory Tests Past 24 Hrs 11/28/17 11/28/17 16:10 16:10 WBC 12.7 H RBC 4.70 Hgb 12.7 L Hct 41.0 MCV 87.2 MCH 27.0 MCHC 31.0 L RDW 17.3 H RDW Differential 55.5 H Plt Count 208 MPV 8.8 Immature Gran % (Auto) 0.200 Neut % (Auto) 79.0 H Lymph % (Auto) 5.9 L [place] % (Auto) 7.4 Eos % (Auto) 6.4 H Baso % (Auto) 1.1 H Absolute Neuts (auto) 10.1 H Absolute Lymphs (auto) 0.75 L Total Counted Not Reportable Sodium 138 Potassium 4.1 Chloride 96 L Carbon Dioxide 30.0 Anion Gap 12 BUN 41 H Creatinine 7.55 H* Estim Creat Clear Calc 8.59 Est GFR (MDRD) Af Amer 10 L Est GFR (MDRD) Non-Af 8 L BUN/Creatinine Ratio 5.4 L Glucose 81 Calcium 8.4 L Troponin I 0.057 H Assessment/Plan Hospitalist note: I am seeing this patient in conjunction with Edith Lewis. I independently seen and examined the patient. History and physical, laboratory data and imaging studies reviewed and I agree with above admission and treatment plan. Patient presented to the medicine because of worsening shortness of breath. He complains of chronic left chest pain that has been going on for long time. He denies cough or sputum production. He has a history of COPD and chronic hypoxic respiratory failure on home oxygen at 2 L and sometimes he goes up to 3 L. He has a history of paroxysmal A. fib status post pacemaker and he was found to be in A. fib with RVR today. Recently, he was started on Eliquis for anticoagulation by cardiology because he was not compliant with Coumadin. He had a history of end-stage renal disease and he has been on hemodialysis on Mondays, Wednesdays and Fridays. He history of chronic systolic CHF/ischemic cardiomyopathy status post removal of ICD due to bacteremia this was 3 months ago. Today in the emergency room, he was found to be in A. fib with RVR, heart rate went up to 120s. His blood pressure was stable. His routine blood work is remarkable for mild leukocytosis, creatinine of 7.55 and BUN of 41. His potassium was normal. His troponin was 0.057 and this is chronic. Chest x-ray revealed small bilateral pleural effusion more on the right side and x-rays similar to the previous chest x-rays. - Physical Exam General: Alert, Oriented x3, Cooperative, mildly short of breath. HEENT: Atraumatic, PERRLA, EOMI. Neck: Supple, No JVD, Negative Carotid Bruits, Trachea Midline, Thyroid Normal. Lungs: Decreased breath sounds bilateral, more at the bases and more on the right base, bilateral rhonchi, Rales. Cardiovascular: Irregular, normal S1, Normal S2, PMI Normal. Abdomen: Bowel Sounds Present, Soft, Non Tender, Non-Distended, No Hepato- splenomegaly. Extremities: No clubbing, No cyanosis, unilateral leg edema to the right leg, chronic. Skin: No rashes, No breakdown Neurological: Neuro grossly intact Assessment and plan: #1 A. fib with RVR: At this time, heart rate has been in the 90s. According to ER physician, his heart rate went up to 120s, received 1 dose of IV Cardizem drip. EKG reviewed, no acute ischemic changes. Plan to continue amiodarone and metoprolol for rate control, hold Eliquis, start therapeutic units twice daily, cardiology consult, repeat CBC and BMP tomorrow morning as well as INR and pro time. #2 worsening shortness of breath/bilateral pleural effusion more on the right side: Chest x-ray reviewed, revealed bilateral small pleural effusion more on the right side and those changes are similar to previous chest x-ray. Patient was in the ER couple days ago and ER physician requested right thoracentesis as outpatient. At this time, not sure if patient needs to have the stool studies done. Plan for pulmonary consult. #3 ESRD on hemodialysis: Patient goes for dialysis on Mondays, Wednesdays and Fridays. Nephrology consult. #4 other chronic medical problems: Stable, continue current medications as above. This note was generated with [employer] software. It may contain incorrect words, spelling, and punctuation that were not noted in checking the note before signing. Code Visit Inpatient E&M: 59366 Init Hosp L3
--- NOTE | 2017-11-28 19:18 | NURSING ---
Katya in ER notified patient may transfer to PCU.
[2017-11-28] MEDS: Acetaminophen 325 MG Tablet 650 MG PO (21:24)
[2017-11-28] MEDS: Ondansetron 4 MG/2 ML Vial IV (21:26)
[2017-11-28] MEDS: 0.9% NaCl Peripheral Flush Adult/Peds IV ×2 (21:26→21:30)
[2017-11-28] MEDS: Nortriptyline 25 MG Capsule PO (21:30)
[2017-11-28] MEDS: Metoprolol Tartrate 25 MG Tablet PO (21:30)
[2017-11-28] MEDS: Amiodarone 200 MG Tablet PO (21:31)
[2017-11-28] MEDS: Pantoprazole Sodium 20 MG Tablet PO (21:31)
[2017-11-28] MEDS: hydrOXYzine PAM 25 MG Capsule 50 MG PO (21:41)
[2017-11-28] MEDS: Calcium Acetate 667 MG Capsule PO (21:55)
[2017-11-29] VITALS (17 sets, daily range): BP systolic 137–162; BP diastolic 76–111; PULSE 47–61; RESP 16–22; TEMP 36.4–36.6; O2SAT 96–100; BMI 19.7
[2017-11-29] MEDS: oxyCODONE 5 MG Tablet PO ×4 (01:25→23:02)
[2017-11-29 06:31] LABS: International Normalized Ratio 1.2; Prothrombin Time (Protime)PT. 15.5 SECONDS (11.7-14.9)
[2017-11-29 07:01] LABS: Absolute Lymphocyte Count 0.39 X10^3/ul (0.83-4.51); Absolute Neutrophil Count 8.4 X10^3/uL (2.0-7.7); Basophil# 0.01 X10^3/uL; Basophil% 0.1 % (0-1); Eosinophil# 0.01 X10^3/uL; Eosinophils% 0.1 % (0-5); Hematocrit 37.1 % (40-54); Hemoglobin 11.6 g/dl (13.0-16.5); Lymphocyte # 0.39 X10^3/ul (4.0); Lymphocyte % 4.4 % (19-41); Mean Corp Hgb Conc 31.3 g/gl (32-36); Mean Corpuscular Hgb 27.2 pg (27.0-32.0); Mean Corpuscular Volume 87.1 fL (80-94); Mean Platelet Vol. 9.4 fl (6.2-12.0); Monocyte# 0.11 X10^3/uL; Monocyte% 1.2 % (0-10); Neutrophil # 8.36 X10^3/uL (2.7-7.7); Neutrophil % 93.9 % (47-70); Platelet Count 202 K/mm3 (150-450); RBC Distribution Width CV 17.3 % (11.6-14.6); RBC Distribution Width SD 54.1 fl (35.1-43.9); Red Blood Count 4.26 M/mm3 (4.6-6.2); White Blood Count 8.9 K/mm3 (4.4-11.0)
[2017-11-29 07:03] LABS: Differential Indicated SCAN CRITERIA MET; POSITIVE COUNT NO; POSITIVE DIFFERENTIAL YES; POSITIVE MORPHOLOGY NO
[2017-11-29 07:33] LABS: Anion Gap 15 (5-15); BUN 47 mg/dL (7-18); BUN/Creat Ratio 5.8 RATIO (10-20); Calcium,Total 7.9 mg/dL (8.5-10.1); Chloride 95 mmol/L (98-107); Creatinine, Serum 8.11 mg/dL (0.70-1.30); EST Glomerular Filtration Rate 7 mL/min (>60); Est Glom Filt Rate - Afr Amer 9 mL/min (>60); Estimated Creatinine Clearance 8.03 ml/min; Glucose 166 mg/dL (74-106); Potassium 4.5 mmol/L (3.5-5.1); Sodium Level 136 mmol/L (136-145)
--- NOTE | 2017-11-29 07:49 | EKG12_ITS ---
Test Reason : Blood Pressure : / mmHG Vent. Rate : 050 BPM Atrial Rate : 050 BPM P-R Int : 214 ms QRS Dur : 116 ms QT Int : 562 ms P-R-T Axes : 009 000 138 degrees QTc Int : 512 ms Sinus bradycardia with 1st degree A-V block Poor R wave progression T wave abnormality, consider lateral ischemia Prolonged QT Abnormal ECG Confirmed by DAYANA CAMPOS, AGAPITO ([id number]), fashion editor KULDIP MASON ([id number]) on 12/05/2017 2:14:28 PM Referred By: DANG Confirmed By:AGAPITO ANNE MD
--- NOTE | 2017-11-29 08:07 | US_ITS ---
PROCEDURE: ULTRASOUND GUIDED THORACENTESIS. DATE: November 29, 2017.. INDICATION: Male, 57 years old. Right pleural effusion. PHYSICIAN: Michel Bustillo M.D. PROCEDURE: The risks, benefits, and alternatives to the procedure were explained to the patient. The specific risks of bleeding, infection, and pneumothorax requiring chest tube insertion were discussed and accepted. Written informed consent was obtained. Ultrasonographic evaluation of the right lower pleural space was carried out. An adequate pocket was identified. The patient was placed in the sitting, upright position. The overlying skin was prepped and draped in sterile fashion. 1% lidocaine was administered subcutaneously for local anesthesia. Under ultrasound guidance, a 6 Frisian thoracentesis needle/catheter system was advanced into the right posterior lower pleural fluid collection. Approximately 1250 mL of blood tinged fluid was drained. The catheter was removed, and a sterile dressing was applied. The patient tolerated the procedure well. A chest x-ray was ordered. US/Thoracentesis W US IMPRESSION: Ultrasound-guided right thoracentesis. Electronically Signed: Michel Bustillo MD at 12:00 EDT Tel [phone], Service support ,
--- NOTE | 2017-11-29 09:00 | PCM.CONS.GEN ---
Problem List (1) Bilateral pleural effusion Status: Chronic (2) Respiratory failure with hypoxia Status: Chronic Qualifiers: (3) Lung nodule Status: Resolved (4) Atrial fibrillation Status: Chronic Qualifiers: Atrial fibrillation type: paroxysmal (5) ESRD (end stage renal disease) Status: Chronic Comment: on HD (6) [facility] current use of anticoagulant Status: Chronic (7) ICD extraction Status: Chronic Comment: MSSA Bacteremia 08/2017 @[facility] (8) Mitral insufficiency Status: Chronic (9) Sick sinus syndrome Status: Chronic Comment: S/P dual-chamber Pacemaker/ICD (10) Pulmonary HTN Status: Chronic (11) HTN (hypertension) Status: Chronic Qualifiers: (12) Anemia with chronic illness Status: Chronic Comment: ESRD (13) Non-compliance Status: Chronic Comment: non-compliant with meds and with dialysis (14) Cardiomyopathy Status: Chronic Qualifiers: (15) CHF (congestive heart failure) Status: Chronic Comment: EF 30% (16) 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 Patient presented to the ED 2 days prior and was discharged with plans for a right thoracentesis as an outpatient. He has had multiple prior thoracenteses. Complains of nonproductive cough and some dizziness, no syncope. Denies any hemoptysis. Patient did have his ICD removed secondary to infection at [facility] a few months ago. Patient denies nausea, vomiting, or diarrhea. Some increase in lower extremity edema and increased weakness. States fistula not working correctly, has a hematoma but still having dialysis. His last dialysis was on Saturday. Patient denies any recent hospitalizations, steroid burst, or antibiotics. He is not on any maintenance inhaler therapy, he uses albuterol as needed, typically infrequently but in the last few days he has used it several times per day. Patient reports compliance with his 3 L of oxygen supplementation at baseline. Initial vitals BP 140/107, pulse 115, RR 22, 97.5?F, 98% on 6 L of oxygen supplementation. Initial blood work showed leukocytosis of 12,700, hemoglobin stable at 12.7. INR 1.2. Chemistry remarkable for a chloride of 96, BUN of 41 and creatinine 7.55. Troponin 0.057 with chronic elevation. No culture data was obtained. EKG showed atrial fibrillation with a rate of 100 bpm, chronic T-wave inversions. Chest x-ray with bilateral pleural effusions with bibasilar infiltration and/or atelectasis, worse at the right lung base. Shows some progression since prior study per read. Was given aerosols, IV Cardizem, and Lovenox. It was felt the patient would benefit from admission and thoracentesis, he was admitted to the progressive care unit for further management. He has remained afebrile and hemodynamically stable. Patient was initially placed on 6 L briefly, he has since been weaned to his baseline requirement of 3 L. Patient last seen in the pulmonary clinic on 09/19/17 for new lung nodule. There were plans at that time to repeat the CT of the chest in 3 weeks to evaluate possible resolution and determine if infectious or potential neoplasm. CT the chest on 10/01/17 showed no evidence of pulmonary nodule or mass, bilateral pleural effusions with subsegmental atelectasis that is chronic in nature, persistent cardiomegaly and persistent mediastinal lymphadenopathy, and ascites. Patient does have a follow-up appointment with Dr. Kunz on 02/13/18. Since September, the patient has been to the ED 4 times and admitted twice with shortness of breath, chest pain, and A. fib RVR. Patient does have a history of Staphylococcus aureus in his blood and wound cultures. Patient's last pulmonary function tests were in July 2016 and showed an irreversible severe large airways obstructive ventilatory defect with symmetric reduction in diffusing capacity. Reliability in question given minimal exhalation time. There was no significant response to bronchodilators. He is scheduled for repeat PFTs on 01/16/18. Past Medical History Past Medical History (Chronic Problems): Chronic Problems (Last Reviewed 11/05/17 @ 14:10 by Terence Gould MD) ICD extraction (Chronic) MSSA Bacteremia 08/2017 @[facility] Atrial fibrillation (Chronic) [facility] current use of anticoagulant (Chronic) Elevated troponin (Chronic) not trending Mitral insufficiency (Chronic) Implantable cardioverter-defibrillator (ICD) in situ (Chronic) implanted in 12/07/2015 at [facility] Sick sinus syndrome (Chronic) S/P dual-chamber Pacemaker/ICD ESRD (end stage renal disease) (Chronic) on HD HTN (hypertension) (Chronic) Pulmonary HTN (Chronic) Anemia with chronic illness (Chronic) ESRD Non-compliance (Chronic) non-compliant with meds and with dialysis Non-compliance with renal dialysis (Chronic) Respiratory failure with hypoxia (Chronic) Bilateral pleural effusion (Chronic) Cardiomyopathy (Chronic) CHF (congestive heart failure) (Chronic) EF 30% Coronary artery arteriosclerosis (Chronic) 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 COPD (chronic obstructive pulmonary disease) (Chronic) History of nephrectomy (Chronic) History of kidney cancer (Chronic) Chest pain (Chronic) Medical History: Medical History (Last Reviewed 11/05/17 @ 14:10 by Terence Gould MD) Atrial fibrillation (Chronic) I48.91 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 (Chronic) Z79.01 ESRD (end stage renal disease) (Chronic) N18.6 on HD HTN (hypertension) (Chronic) I10 Pulmonary HTN (Chronic) I27.2 Anemia with chronic illness (Chronic) D63.8 ESRD Non-compliance (Chronic) Z91.19 non-compliant with meds and with dialysis Non-compliance with renal dialysis (Chronic) Z91.15 Respiratory failure with hypoxia (Chronic) J96.91 Bilateral pleural effusion (Chronic) J90 Cardiomyopathy (Chronic) I42.9 CHF (congestive heart failure) (Chronic) I50.9 EF 30% Coronary artery arteriosclerosis (Chronic) I25.10 Parathyroid disease (Chronic) E21.5 due to ESRD COPD (chronic obstructive pulmonary disease) (Chronic) J44.9 History of kidney cancer (Chronic) Z85.528 Chest pain (Chronic) R07.9 Ulcer of foot (Resolved) L97.509 Allergies onion Adverse Reaction (Severe, Verified 11/28/17 17:44) Unknown Home Medications: Ambulatory Orders Medication Instructions Recorded Acetaminophen [Tylenol] 1,000 mg PO Q4H PRN PRN 05/17/15 Calcium Acetate [Phoslo Gel Cap] 667 mg PO TIDCM 05/17/15 Cinacalcet HCl [Sensipar] 30 mg PO DAILY 09/08/15 Folic Acid/Vit Bcomp,C [Renal-Miguel Angel 0.8 mg PO DAILY 05/22/17 Tablet] metoprolol tartrate 25 mg tablet 25 mg PO BID 09/17/17 nitroglycerin 0.4 mg sublingual 0.4 mg SUBLINGUAL Q5-15M PRN 09/17/17 tablet Fluticasone 0.05% [Flonase Nasal 2 spray INTRANASAL DAILY PRN PRN 10/23/17 Taylor] Lisinopril [Prinivil] 20 mg PO DAILY 10/23/17 Nortriptyline HCl [Pamelor] 25 mg PO QHS 10/23/17 omeprazole 20 mg capsule,delayed 20 mg PO BID #60 cap 11/25/17 release Amiodarone HCl [Cordarone] 200 mg PO BID 11/26/17 Apixaban [Eliquis] 2.5 mg PO BID 11/26/17 Albuterol Sulfate [Ventolin Hfa] 1 - 2 puff IH Q4H PRN PRN 11/28/17 Hydroxyzine Pamoate [Hydroxyzine 50 mg PO TID PRN PRN 11/28/17 Pamoate] Surgical History: Surgical History (Last Reviewed 11/28/17 @ 18:36 by BIANCA [place]) History of nephrectomy (Chronic) Z98.890, Z90.5 Surgical History: - - AVF placement PAIGE, left nephrectomy for cancer, aicd in Lives: Spouse/ Significant Other Smoking Status: Former smoker Tobacco Use: Chew Alcohol: None Drugs: None - *Family History Maternal History Items: No pertinent history, - - Patient's mother at age of 73 with a history of end-stage renal failure. Paternal History Items: Renal Disease, - - The patient's mother at age of 69 with a history of kidney cancer. Review of Systems Constitutional: Reports: Weakness, Weight Change - Steadily losing weight over the last year, Fatigue. Denies: Anorexia, Chills, Fever, Night Sweats, Malaise Eyes: Reports: Redness. Denies: Pain, Vision Change HEENT: Reports: Post Nasal Drip. Denies: Difficulty Swallowing, Hard of Hearing, Nasal bleeding, Sinus Congestion, Sinus Drainage, Sore Throat Cardiovascular: Reports: Chest Pain, Edema, Light Headedness - Resolved, Palpitations - Resolved. Denies: Orthopnea, Paroxysmal Noc. Dyspnea, Syncope Respiratory: Reports: Cough, Shortness of breath upon exertion, Wheezing. Denies: Hemoptysis, Shortness of breath at rest, Sputum production Gastrointestinal: Denies: Abdominal Pain, Constipation, Diarrhea, Dyspepsia, Hematemesis, Hematochezia, Nausea, Melena, Vomiting Genitourinary: Denies: Dysuria, Frequency, Hematuria Musculoskeletal: Denies: Back Pain Skin: Reports: Pruritis, - - scars/scabs UEs. Denies: Rash Neurological: Reports: Numbness, Tingling. Denies: Change in Speech, Confusion, Difficulty swallowing, Focal weakness, Tremor, Seizures Psychiatric: Reports: Anxiety. Denies: Depression Endocrine: Denies: Change in Body Habitus, Polydipsia, Polyuria Hematologic/ Lymphatic: Reports: Anemia, Easy Bruising, Easy Bleeding. Denies: Adenopathy, Hx of blood clot Subjective: Patient was seen and examined. Reports significant subjective improvement since arrival in the ED. He is back to his baseline oxygen requirement of 3 L. Remains afebrile and hemodynamically stable. His pulse is in the 50s, his dizziness has resolved. Has some dyspnea on exertion, but is back at his baseline. Objective: Clinical Impression(s) from Imaging Studies Chest X-Ray 11/28/17 16:13 IMPRESSION: Mild cardiomegaly. Bibasilar atelectasis. Small bilateral effusions, right side larger than left. Findings are similar to the previous study of 11/26/2017. Electronically Signed: Romero Morgan MD at 16:44 EDT , Service support , - Physical Exam General: Alert, Oriented x3, Cooperative, No apparent distress, - - no conversational dyspnea HEENT: Atraumatic, Normocephalic Oral: Moist Mucosa, No Gingival or Mucosal Lesions/ Ulcerations, - - poor dentition Neck: Supple, No JVD, No Nodes, Trachea Midline Lungs: - - Very diminished throughout, otherwise no appreciable rhonchi, wheezes, or rales. Symmetric expansion Cardiovascular: Regular Rhythm, Normal S1, Normal S2, No murmurs, Bradycardic, No rub noted, No Gallop Abdomen: Bowel Sounds Present, Soft, Non Tender, Non-Distended Extremities: No cyanosis, Capillary Refill Less than 3 Seconds, No Calf Tenderness, Edema Skin: No rashes, - - various scabs bilat UEs, large healing hematoma medial upper L arm, firm, no pain Musculoskeletal: No Tenderness to Palpation of Joints or Extremities, Cachexia Lymphatic: No Cervical, Supraclavicular, or Inguinal Adenopathy Neurological: Cranial nerves II-XII grossly intact, Neuro grossly intact, Motor Exam 5/5 strength throughout Psych/Mental Status: Alert and oriented to time, place, person, mood and affect Vital Signs Temp Pulse Resp BP Pulse Ox 97.5 F L 51 L 18 145/81 H 100 11/29/17 03:00 11/29/17 06:54 11/29/17 03:00 11/29/17 03:00 11/29/17 03:00 Oxygen Flow Rate (L/min) 3 Oxygen Delivery Method Nasal Cannula Weight: 126 lb 1.671 oz Body Mass Index (BMI) 19.7 Laboratory Tests Past 24 Hrs 11/29/17 11/29/17 11/29/17 05:55 05:55 05:55 WBC 8.9 RBC 4.26 L Hgb 11.6 L Hct 37.1 L MCV 87.1 MCH 27.2 MCHC 31.3 L RDW 17.3 H RDW Differential 54.1 H Plt Count 202 MPV 9.4 Immature Gran % (Auto) 0.300 Neut % (Auto) 93.9 H Lymph % (Auto) 4.4 L [place] % (Auto) 1.2 Eos % (Auto) 0.1 Baso % (Auto) 0.1 Absolute Neuts (auto) 8.4 H Absolute Lymphs (auto) 0.39 L Total Counted Not Reportable PT 15.5 H INR 1.2 Sodium 136 Potassium 4.5 Chloride 95 L Carbon Dioxide 26.0 Anion Gap 15 BUN 47 H Creatinine 8.11 H* Estim Creat Clear Calc 8.03 Est GFR (MDRD) Af Amer 9 L Est GFR (MDRD) Non-Af 7 L BUN/Creatinine Ratio 5.8 L Glucose 166 H Calcium 7.9 L Assessment/Plan All Active Problems (Last Reviewed 11/05/17 @ 14:10 by Terence Gould MD) Lung nodule (Resolved) Ulcer of foot (Resolved) RECOMMENDATIONS 1. Wean oxygen supplementation to keep saturations 90% or above 2. Encourage incentive spirometer 3. Increase activity as tolerated, PT 4. Continue aerosols as needed only 5. Dialysis today per nephrology recommendations 6 Ambulatory pulse ox prior to discharge 7. Okay to discharge from pulmonary perspective, follow-up as scheduled IMPRESSIONS 1. Acute on chronic hypoxic respiratory failure Improved. Patient back on his baseline of 3 L of oxygen supplementation. Reports compliance with home oxygen. Mild leukocytosis on admit. No other indication of infectious process, send sputum if cough becomes productive. No need for antibiotics or steroids. Continue to wean oxygen as tolerated. Increase activity. Obtain ambulatory pulse ox prior to discharge. Follow-up as scheduled in the pulmonary clinic. 2. Bilateral pleural effusions Chronic. Patient scheduled for outpatient thoracentesis for today. Likely does not need procedure as effusions are chronic. He has had multiple past thoracentesis and fluid is transudate in nature. He is back to his baseline respiratory status. Okay to be discharged home from pulmonary standpoint. 3. A. fib RVR Resolved with IV dose of Cardizem in the ED. Patient is on home dose of amiodarone. He is now sinus rhythm/sinus bradycardia. Resume Eliquis. 4. H/O SSS with ICD/defib s/p removal secondary to infection/ESRD/hypertension/pulmonary hypertension/cardiomyopathy/CHF/COPD/mitral insufficiency Complicates care, management, recovery, and prognosis. Continue medications as indicated. Patient to have dialysis today and can likely be discharged later this afternoon. Patient has repeat PFTs in December and a follow-up appointment Dr. Kunz in January. He can call the pulmonary clinic with any issues in the interim. Thank you for the opportunity to participate in this patient's care, please do not hesitate contact us with any further questions or concerns. This note was generated with [employer] software. It may contain incorrect words, spelling, and punctuation that were not noted in checking the note before signing.
--- NOTE | 2017-11-29 09:12 | CON.PCM_ITS ---
Problem List (1) Bilateral pleural effusion Status: Chronic (2) Respiratory failure with hypoxia Status: Chronic Qualifiers: (3) Lung nodule Status: Resolved (4) Atrial fibrillation Status: Chronic Qualifiers: Atrial fibrillation type: paroxysmal (5) ESRD (end stage renal disease) Status: Chronic Comment: on HD (6) MCC current use of anticoagulant Status: Chronic (7) ICD extraction Status: Chronic Comment: MSSA Bacteremia 08/2017 @[facility] (8) Mitral insufficiency Status: Chronic (9) Sick sinus syndrome Status: Chronic Comment: S/P dual-chamber Pacemaker/ICD (10) Pulmonary HTN Status: Chronic (11) HTN (hypertension) Status: Chronic Qualifiers: (12) Anemia with chronic illness Status: Chronic Comment: ESRD (13) Non-compliance Status: Chronic Comment: non-compliant with meds and with dialysis (14) Cardiomyopathy Status: Chronic Qualifiers: (15) CHF (congestive heart failure) Status: Chronic Comment: EF 30% (16) 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 Patient presented to the ED 2 days prior and was discharged with plans for a right thoracentesis as an outpatient. He has had multiple prior thoracenteses. Complains of nonproductive cough and some dizziness, no syncope. Denies any hemoptysis. Patient did have his ICD removed secondary to infection at [facility] a few months ago. Patient denies nausea, vomiting, or diarrhea. Some increase in lower extremity edema and increased weakness. States fistula not working correctly, has a hematoma but still having dialysis. His last dialysis was on Saturday. Patient denies any recent hospitalizations, steroid burst, or antibiotics. He is not on any maintenance inhaler therapy, he uses albuterol as needed, typically infrequently but in the last few days he has used it several times per day. Patient reports compliance with his 3 L of oxygen supplementation at baseline. Initial vitals BP 140/107, pulse 115, RR 22, 97.5?F, 98% on 6 L of oxygen supplementation. Initial blood work showed leukocytosis of 12,700, hemoglobin stable at 12.7. INR 1.2. Chemistry remarkable for a chloride of 96, BUN of 41 and creatinine 7.55. Troponin 0.057 with chronic elevation. No culture data was obtained. EKG showed atrial fibrillation with a rate of 100 bpm, chronic T- wave inversions. Chest x-ray with bilateral pleural effusions with bibasilar infiltration and/or atelectasis, worse at the right lung base. Shows some progression since prior study per read. Was given aerosols, IV Cardizem, and Lovenox. It was felt the patient would benefit from admission and thoracentesis , he was admitted to the progressive care unit for further management. He has remained afebrile and hemodynamically stable. Patient was initially placed on 6 L briefly, he has since been weaned to his baseline requirement of 3 L. Patient last seen in the pulmonary clinic on 09/19/17 for new lung nodule. There were plans at that time to repeat the CT of the chest in 3 weeks to evaluate possible resolution and determine if infectious or potential neoplasm. CT the chest on 10/01/17 showed no evidence of pulmonary nodule or mass, bilateral pleural effusions with subsegmental atelectasis that is chronic in nature, persistent cardiomegaly and persistent mediastinal lymphadenopathy, and ascites. Patient does have a follow-up appointment with Dr. Kunz on 02/13/18. Since September, the patient has been to the ED 4 times and admitted twice with shortness of breath, chest pain, and A. fib RVR. Patient does have a history of Staphylococcus aureus in his blood and wound cultures. Patient's last pulmonary function tests were in July 2016 and showed an irreversible severe large airways obstructive ventilatory defect with symmetric reduction in diffusing capacity. Reliability in question given minimal exhalation time. There was no significant response to bronchodilators. He is scheduled for repeat PFTs on 01/16/18. 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) Elevated troponin (Chronic) not trending Mitral insufficiency (Chronic) Implantable cardioverter-defibrillator (ICD) in situ (Chronic) implanted in 12/07/2015 at [facility] Sick sinus syndrome (Chronic) S/P dual-chamber Pacemaker/ICD ESRD (end stage renal disease) (Chronic) on HD HTN (hypertension) (Chronic) Pulmonary HTN (Chronic) Anemia with chronic illness (Chronic) ESRD Non-compliance (Chronic) non-compliant with meds and with dialysis Non-compliance with renal dialysis (Chronic) Respiratory failure with hypoxia (Chronic) Bilateral pleural effusion (Chronic) Cardiomyopathy (Chronic) CHF (congestive heart failure) (Chronic) EF 30% Coronary artery arteriosclerosis (Chronic) 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 COPD (chronic obstructive pulmonary disease) (Chronic) History of nephrectomy (Chronic) History of kidney cancer (Chronic) Chest pain (Chronic) Medical History: Medical History (Last Reviewed 11/05/17 @ 14:10 by Terence Gould MD) Atrial fibrillation (Chronic) I48.91 MCC current use of anticoagulant (Chronic) Z79.01 ESRD (end stage renal disease) (Chronic) N18.6 on HD HTN (hypertension) (Chronic) I10 Pulmonary HTN (Chronic) I27.2 Anemia with chronic illness (Chronic) D63.8 ESRD Non-compliance (Chronic) Z91.19 non-compliant with meds and with dialysis Non-compliance with renal dialysis (Chronic) Z91.15 Respiratory failure with hypoxia (Chronic) J96.91 Bilateral pleural effusion (Chronic) J90 Cardiomyopathy (Chronic) I42.9 CHF (congestive heart failure) (Chronic) I50.9 EF 30% Coronary artery arteriosclerosis (Chronic) I25.10 Parathyroid disease (Chronic) E21.5 due to ESRD COPD (chronic obstructive pulmonary disease) (Chronic) J44.9 History of kidney cancer (Chronic) Z85.528 Chest pain (Chronic) R07.9 Ulcer of foot (Resolved) L97.509 Allergies onion Adverse Reaction (Severe, Verified 11/28/17 17:44) Unknown Home Medications: Ambulatory Orders Medication Instructions Recorded Acetaminophen [Tylenol] 1,000 mg PO Q4H PRN PRN 05/17/15 Calcium Acetate [Phoslo Gel Cap] 667 mg PO TIDCM 05/17/15 Cinacalcet HCl [Sensipar] 30 mg PO DAILY 09/08/15 Folic Acid/Vit Bcomp,C [Renal-Miguel Angel 0.8 mg PO DAILY 05/22/17 Tablet] metoprolol tartrate 25 mg tablet 25 mg PO BID 09/17/17 nitroglycerin 0.4 mg sublingual 0.4 mg SUBLINGUAL Q5-15M PRN 09/17/17 tablet Fluticasone 0.05% [Flonase Nasal 2 spray INTRANASAL DAILY PRN PRN 10/23/17 [place]] Lisinopril [Prinivil] 20 mg PO DAILY 10/23/17 Nortriptyline HCl [Pamelor] 25 mg PO QHS 10/23/17 omeprazole 20 mg capsule,delayed 20 mg PO BID #60 cap 11/25/17 release Amiodarone HCl [Cordarone] 200 mg PO BID 11/26/17 Apixaban [Eliquis] 2.5 mg PO BID 11/26/17 Albuterol Sulfate [Ventolin Hfa] 1 - 2 puff IH Q4H PRN PRN 11/28/17 Hydroxyzine Pamoate [Hydroxyzine 50 mg PO TID PRN PRN 11/28/17 Pamoate] Surgical History: Surgical History (Last Reviewed 11/28/17 @ 18:36 by BIANCA [place]) History of nephrectomy (Chronic) Z98.890, Z90.5 Surgical History: - - AVF placement PAIGE, left nephrectomy for cancer, aicd in Lives: Spouse/ Significant Other Smoking Status: Former smoker Tobacco Use: Chew Alcohol: None Drugs: None - *Family History Maternal History Items: No pertinent history, - - Patient's mother at age of 73 with a history of end-stage renal failure. Paternal History Items: Renal Disease, - - The patient's mother at age of 69 with a history of kidney cancer. Review of Systems Constitutional: Reports: Weakness, Weight Change - Steadily losing weight over the last year, Fatigue. Denies: Anorexia, Chills, Fever, Night Sweats, Malaise Eyes: Reports: Redness. Denies: Pain, Vision Change HEENT: Reports: Post Nasal Drip. Denies: Difficulty Swallowing, Hard of Hearing , Nasal bleeding, Sinus Congestion, Sinus Drainage, Sore Throat Cardiovascular: Reports: Chest Pain, Edema, Light Headedness - Resolved, Palpitations - Resolved. Denies: Orthopnea, Paroxysmal Noc. Dyspnea, Syncope Respiratory: Reports: Cough, Shortness of breath upon exertion, Wheezing. Denies: Hemoptysis, Shortness of breath at rest, Sputum production Gastrointestinal: Denies: Abdominal Pain, Constipation, Diarrhea, Dyspepsia, Hematemesis, Hematochezia, Nausea, Melena, Vomiting Genitourinary: Denies: Dysuria, Frequency, Hematuria Musculoskeletal: Denies: Back Pain Skin: Reports: Pruritis, - - scars/scabs UEs. Denies: Rash Neurological: Reports: Numbness, Tingling. Denies: Change in Speech, Confusion , Difficulty swallowing, Focal weakness, Tremor, Seizures Psychiatric: Reports: Anxiety. Denies: Depression Endocrine: Denies: Change in Body Habitus, Polydipsia, Polyuria Hematologic/ Lymphatic: Reports: Anemia, Easy Bruising, Easy Bleeding. Denies: Adenopathy, Hx of blood clot Subjective: Patient was seen and examined. Reports significant subjective improvement since arrival in the ED. He is back to his baseline oxygen requirement of 3 L. Remains afebrile and hemodynamically stable. His pulse is in the 50s, his dizziness has resolved. Has some dyspnea on exertion, but is back at his baseline. Objective: Clinical Impression(s) from Imaging Studies Chest X-Ray 11/28/17 16:13 IMPRESSION: Mild cardiomegaly. Bibasilar atelectasis. Small bilateral effusions, right side larger than left. Findings are similar to the previous study of 11/26/2017. Electronically Signed: Romero Morgan MD at 16:44 EDT , Service support , - Physical Exam General: Alert, Oriented x3, Cooperative, No apparent distress, - - no conversational dyspnea HEENT: Atraumatic, Normocephalic Oral: Moist Mucosa, No Gingival or Mucosal Lesions/ Ulcerations, - - poor dentition Neck: Supple, No JVD, No Nodes, Trachea Midline Lungs: - - Very diminished throughout, otherwise no appreciable rhonchi, wheezes , or rales. Symmetric expansion Cardiovascular: Regular Rhythm, Normal S1, Normal S2, No murmurs, Bradycardic, No rub noted, No Gallop Abdomen: Bowel Sounds Present, Soft, Non Tender, Non-Distended Extremities: No cyanosis, Capillary Refill Less than 3 Seconds, No Calf Tenderness, Edema Skin: No rashes, - - various scabs bilat UEs, large healing hematoma medial upper L arm, firm, no pain Musculoskeletal: No Tenderness to Palpation of Joints or Extremities, Cachexia Lymphatic: No Cervical, Supraclavicular, or Inguinal Adenopathy Neurological: Cranial nerves II-XII grossly intact, Neuro grossly intact, Motor Exam 5/5 strength throughout Psych/Mental Status: Alert and oriented to time, place, person, mood and affect Vital Signs Temp Pulse Resp BP Pulse Ox 97.5 F L 51 L 18 145/81 H 100 11/29/17 03:00 11/29/17 06:54 11/29/17 03:00 11/29/17 03:00 11/29/17 03:00 Oxygen Flow Rate (L/min) 3 Oxygen Delivery Method Nasal Cannula Weight: 126 lb 1.671 oz Body Mass Index (BMI) 19.7 Laboratory Tests Past 24 Hrs 11/29/17 11/29/17 11/29/17 05:55 05:55 05:55 WBC 8.9 RBC 4.26 L Hgb 11.6 L Hct 37.1 L MCV 87.1 MCH 27.2 MCHC 31.3 L RDW 17.3 H RDW Differential 54.1 H Plt Count 202 MPV 9.4 Immature Gran % (Auto) 0.300 Neut % (Auto) 93.9 H Lymph % (Auto) 4.4 L [place] % (Auto) 1.2 Eos % (Auto) 0.1 Baso % (Auto) 0.1 Absolute Neuts (auto) 8.4 H Absolute Lymphs (auto) 0.39 L Total Counted Not Reportable PT 15.5 H INR 1.2 Sodium 136 Potassium 4.5 Chloride 95 L Carbon Dioxide 26.0 Anion Gap 15 BUN 47 H Creatinine 8.11 H* Estim Creat Clear Calc 8.03 Est GFR (MDRD) Af Amer 9 L Est GFR (MDRD) Non-Af 7 L BUN/Creatinine Ratio 5.8 L Glucose 166 H Calcium 7.9 L Assessment/Plan All Active Problems (Last Reviewed 11/05/17 @ 14:10 by Terence Gould MD) Lung nodule (Resolved) Ulcer of foot (Resolved) RECOMMENDATIONS 1. Wean oxygen supplementation to keep saturations 90% or above 2. Encourage incentive spirometer 3. Increase activity as tolerated, PT 4. Continue aerosols as needed only 5. Dialysis today per nephrology recommendations 6 Ambulatory pulse ox prior to discharge 7. Okay to discharge from pulmonary perspective, follow-up as scheduled IMPRESSIONS 1. Acute on chronic hypoxic respiratory failure Improved. Patient back on his baseline of 3 L of oxygen supplementation. Reports compliance with home oxygen. Mild leukocytosis on admit. No other indication of infectious process, send sputum if cough becomes productive. No need for antibiotics or steroids. Continue to wean oxygen as tolerated. Increase activity. Obtain ambulatory pulse ox prior to discharge. Follow-up as scheduled in the pulmonary clinic. 2. Bilateral pleural effusions Chronic. Patient scheduled for outpatient thoracentesis for today. Likely does not need procedure as effusions are chronic. He has had multiple past thoracentesis and fluid is transudate in nature. He is back to his baseline respiratory status. Okay to be discharged home from pulmonary standpoint. 3. A. fib RVR Resolved with IV dose of Cardizem in the ED. Patient is on home dose of amiodarone. He is now sinus rhythm/sinus bradycardia. Resume Eliquis. 4. H/O SSS with ICD/defib s/p removal secondary to infection/ESRD/hypertension/ pulmonary hypertension/cardiomyopathy/CHF/COPD/mitral insufficiency Complicates care, management, recovery, and prognosis. Continue medications as indicated. Patient to have dialysis today and can likely be discharged later this afternoon. Patient has repeat PFTs in December and a follow-up appointment Dr. Kunz in January. He can call the pulmonary clinic with any issues in the interim. Thank you for the opportunity to participate in this patient's care, please do not hesitate contact us with any further questions or concerns. This note was generated with [employer] software. It may contain incorrect words, spelling, and punctuation that were not noted in checking the note before signing.
--- NOTE | 2017-11-29 10:36 | PCM.CONS.R ---
Problem List (1) ESRD (end stage renal disease) Status: Chronic Comment: on HD Consultation - Renal 11/29/17 PCP/ Referring MD: Requesting physician: ESRD Primary care physician: Conner Lopez Reason for Consultation:: ESRD - History of Present Illness History of Present Illness: The patient is a 57 year old M well known to us. ESRD on HD MWF schedule. had complicated cardiac history. Recently had BSI from [facility] and was transferred to [facility] for lead extraction. has recurrent AFIB, any attempts at fluid removal in dialysis worsens AFIB and he ends up in ER. fluid removal has been a challenge recently admitted with worsening dyspnea. - Allergies Allergies: Allergies onion Adverse Reaction (Severe, Verified 11/28/17 17:44) Unknown - Current Medications Current Medications: Current Medications Acetaminophen (Tylenol) 650 mg PO Q6H PRN PRN PRN Reason: Fever, headache, pain Last Admin: 11/28/17 21:24 Dose: 650 mg Albuterol Sulfate (Ventolin Aerosols) 2.5 mg INHALATION Q2H PRN PRN PRN Reason: Shortness of breath, wheezing Amiodarone HCl (Cordarone) 200 mg PO BID [facility] Last Admin: 11/28/17 21:31 Dose: 200 mg Calcium Acetate (Phoslo Gel Cap) 667 mg PO TIDCM [facility] Last Admin: 11/29/17 08:31 Dose: Not Given Cinacalcet (Sensipar) 30 mg PO DAILY [facility] Enoxaparin Sodium (Lovenox) 60 mg SC DAILY@1800 [facility] Fluticasone Propionate (Flonase Nasal [place]) 2 spray NASAL DAILY PRN PRN PRN Reason: ALLERGIES Hydroxyzine Pamoate (Vistaril Pamoate Capsule) 50 mg PO TID PRN PRN PRN Reason: ITCHING Last Admin: 11/28/17 21:41 Dose: 50 mg Lisinopril (Zestril) 20 mg PO DAILY [facility] Magnesium Hydroxide (Milk Of Magnesia) 30 ml PO DAILY PRN PRN Reason: Constipation Metoprolol Tartrate (Lopressor (Beta Rosemarie)) 25 mg PO BID [facility] Last Admin: 11/28/17 21:30 Dose: 25 mg Multivit/Ca Carb/B Cmplx/FA/Prenat (Nephrocaps, Renaphro) 1 capsule PO DAILY [facility] Nortriptyline HCl (Pamelor) 25 mg PO QHS [facility] Last Admin: 11/28/17 21:30 Dose: 25 mg Ondansetron HCl (Zofran) 4 mg IV Q6H PRN PRN PRN Reason: NAUSEA/VOMITING Last Admin: 11/28/17 21:26 Dose: 4 mg Oxycodone HCl (Oxyir) 5 mg PO Q6H PRN PRN PRN Reason: SEVERE PAIN (6-10/10) Last Admin: 11/29/17 08:29 Dose: 5 mg Pantoprazole Sodium (Protonix) 20 mg PO BID [facility] Last Admin: 11/28/17 21:31 Dose: 20 mg Sodium Chloride () 5 - 30 ml IV UD PRN PRN Reason: SALINE FLUSH Last Admin: 11/28/17 21:30 Dose: 10 ml - Past Medical History Past Medical History (Chronic Problems): Chronic Problems (Last Reviewed 11/05/17 @ 14:10 by Terence Gould MD) ICD extraction (Chronic) MSSA Bacteremia 08/2017 @[facility] 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) Elevated troponin (Chronic) not trending Mitral insufficiency (Chronic) Implantable cardioverter-defibrillator (ICD) in situ (Chronic) implanted in 12/07/2015 at [facility] Sick sinus syndrome (Chronic) S/P dual-chamber Pacemaker/ICD ESRD (end stage renal disease) (Chronic) on HD HTN (hypertension) (Chronic) Pulmonary HTN (Chronic) Anemia with chronic illness (Chronic) ESRD Non-compliance (Chronic) non-compliant with meds and with dialysis Non-compliance with renal dialysis (Chronic) Respiratory failure with hypoxia (Chronic) Bilateral pleural effusion (Chronic) Cardiomyopathy (Chronic) CHF (congestive heart failure) (Chronic) EF 30% Coronary artery arteriosclerosis (Chronic) 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 Paternal History Items: Renal Disease, - - The patient's mother at age of 69 with a history of kidney cancer. Review of Systems Constitutional: Denies: Chills, Fever, Weight Change HEENT: Denies: Head Aches, Sinus Congestion, Sinus Drainage Cardiovascular: Denies: Chest Pain, Palpitations Respiratory: Denies: Cough, Shortness of breath at rest, Sputum production Gastrointestinal: Denies: Abdominal Pain, Nausea, Vomiting Genitourinary: Denies: Dysuria Musculoskeletal: Denies: Joint Pain, Joint Tenderness Skin: Denies: Rash, Wounds Neurological: Denies: Numbness, Tingling, Focal weakness Psychiatric: Denies: Anxiety, Depression, Homicidal Ideations, Suicidal Ideations Hematologic/ Lymphatic: Denies: Easy Bruising, Easy Bleeding - Physical Exam General: Alert, Oriented x3, Cooperative HEENT: Atraumatic, PERRLA, EOMI, Normocephalic Neck: Supple, No JVD, Negative Carotid Bruits Lungs: Clear to auscultation, Normal air movement Cardiovascular: Regular rate, No murmurs Abdomen: Bowel Sounds Present, Soft, Non Tender Extremities: No edema, Capillary Refill Less than 3 Seconds Skin: No rashes, No breakdown Musculoskeletal: No Tenderness to Palpation of Joints or Extremities Neurological: Cranial nerves II-XII grossly intact Psych/Mental Status: Normal Affect, Appropriate Vital Signs Temp Pulse Resp BP Pulse Ox 97.6 F L 51 L 16 152/91 H 98 11/29/17 09:00 11/29/17 09:00 11/29/17 09:00 11/29/17 09:00 11/29/17 09:00 Oxygen Flow Rate (L/min) 3 Oxygen Delivery Method Nasal Cannula Weight: 57.2 kg Body Mass Index (BMI) 19.7 Laboratory Tests Past 24 Hrs 11/29/17 11/29/17 11/29/17 05:55 05:55 05:55 WBC 8.9 RBC 4.26 L Hgb 11.6 L Hct 37.1 L MCV 87.1 MCH 27.2 MCHC 31.3 L RDW 17.3 H RDW Differential 54.1 H Plt Count 202 MPV 9.4 Immature Gran % (Auto) 0.300 Neut % (Auto) 93.9 H Lymph % (Auto) 4.4 L [place] % (Auto) 1.2 Eos % (Auto) 0.1 Baso % (Auto) 0.1 Absolute Neuts (auto) 8.4 H Absolute Lymphs (auto) 0.39 L Total Counted Not Reportable PT 15.5 H INR 1.2 Sodium 136 Potassium 4.5 Chloride 95 L Carbon Dioxide 26.0 Anion Gap 15 BUN 47 H Creatinine 8.11 H* Estim Creat Clear Calc 8.03 Est GFR (MDRD) Af Amer 9 L Est GFR (MDRD) Non-Af 7 L BUN/Creatinine Ratio 5.8 L Glucose 166 H Calcium 7.9 L Assessment/Plan All Active Problems (Last Reviewed 11/05/17 @ 14:10 by Terence Gould MD) Lung nodule (Resolved) Ulcer of foot (Resolved) ESRD. HD today. Pleural effusions. for pleural tap today CHF. fluids removal as tolerated
--- NOTE | 2017-11-29 10:41 | CON.PCM_ITS ---
Problem List (1) ESRD (end stage renal disease) Status: Chronic Comment: on HD Consultation - Renal 11/29/17 PCP/ Referring MD: Requesting physician: ESRD Primary care physician: Conner Lopez Reason for Consultation:: ESRD - History of Present Illness History of Present Illness: The patient is a 57 year old M well known to us. ESRD on HD MWF schedule. had complicated cardiac history. Recently had BSI from [facility] and was transferred to [facility] for lead extraction. has recurrent AFIB, any attempts at fluid removal in dialysis worsens AFIB and he ends up in ER. fluid removal has been a challenge recently admitted with worsening dyspnea. - Allergies Allergies: Allergies onion Adverse Reaction (Severe, Verified 11/28/17 17:44) Unknown - Current Medications Current Medications: Current Medications Acetaminophen (Tylenol) 650 mg PO Q6H PRN PRN PRN Reason: Fever, headache, pain Last Admin: 11/28/17 21:24 Dose: 650 mg Albuterol Sulfate (Ventolin Aerosols) 2.5 mg INHALATION Q2H PRN PRN PRN Reason: Shortness of breath, wheezing Amiodarone HCl (Cordarone) 200 mg PO BID [facility] Last Admin: 11/28/17 21:31 Dose: 200 mg Calcium Acetate (Phoslo Gel Cap) 667 mg PO TIDCM [facility] Last Admin: 11/29/17 08:31 Dose: Not Given Cinacalcet (Sensipar) 30 mg PO DAILY [facility] Enoxaparin Sodium (Lovenox) 60 mg SC DAILY@1800 [facility] Fluticasone Propionate (Flonase Nasal [place]) 2 spray NASAL DAILY PRN PRN PRN Reason: ALLERGIES Hydroxyzine Pamoate (Vistaril Pamoate Capsule) 50 mg PO TID PRN PRN PRN Reason: ITCHING Last Admin: 11/28/17 21:41 Dose: 50 mg Lisinopril (Zestril) 20 mg PO DAILY [facility] Magnesium Hydroxide (Milk Of Magnesia) 30 ml PO DAILY PRN PRN Reason: Constipation Metoprolol Tartrate (Lopressor (Beta Rosemarie)) 25 mg PO BID [facility] Last Admin: 11/28/17 21:30 Dose: 25 mg Multivit/Ca Carb/B Cmplx/FA/Prenat (Nephrocaps, Renaphro) 1 capsule PO DAILY [facility] Nortriptyline HCl (Pamelor) 25 mg PO QHS [facility] Last Admin: 11/28/17 21:30 Dose: 25 mg Ondansetron HCl (Zofran) 4 mg IV Q6H PRN PRN PRN Reason: NAUSEA/VOMITING Last Admin: 11/28/17 21:26 Dose: 4 mg Oxycodone HCl (Oxyir) 5 mg PO Q6H PRN PRN PRN Reason: SEVERE PAIN (6-10/10) Last Admin: 11/29/17 08:29 Dose: 5 mg Pantoprazole Sodium (Protonix) 20 mg PO BID [facility] Last Admin: 11/28/17 21:31 Dose: 20 mg Sodium Chloride () 5 - 30 ml IV UD PRN PRN Reason: SALINE FLUSH Last Admin: 11/28/17 21:30 Dose: 10 ml - Past Medical History Past Medical History (Chronic Problems): Chronic Problems (Last Reviewed 11/05/17 @ 14:10 by Terence Gould MD) ICD extraction (Chronic) MSSA Bacteremia 08/2017 @[facility] Atrial fibrillation (Chronic) 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) Elevated troponin (Chronic) not trending Mitral insufficiency (Chronic) Implantable cardioverter-defibrillator (ICD) in situ (Chronic) implanted in 12/07/2015 at [facility] Sick sinus syndrome (Chronic) S/P dual-chamber Pacemaker/ICD ESRD (end stage renal disease) (Chronic) on HD HTN (hypertension) (Chronic) Pulmonary HTN (Chronic) Anemia with chronic illness (Chronic) ESRD Non-compliance (Chronic) non-compliant with meds and with dialysis Non-compliance with renal dialysis (Chronic) Respiratory failure with hypoxia (Chronic) Bilateral pleural effusion (Chronic) Cardiomyopathy (Chronic) CHF (congestive heart failure) (Chronic) EF 30% Coronary artery arteriosclerosis (Chronic) 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 Paternal History Items: Renal Disease, - - The patient's mother at age of 69 with a history of kidney cancer. Review of Systems Constitutional: Denies: Chills, Fever, Weight Change HEENT: Denies: Head Aches, Sinus Congestion, Sinus Drainage Cardiovascular: Denies: Chest Pain, Palpitations Respiratory: Denies: Cough, Shortness of breath at rest, Sputum production Gastrointestinal: Denies: Abdominal Pain, Nausea, Vomiting Genitourinary: Denies: Dysuria Musculoskeletal: Denies: Joint Pain, Joint Tenderness Skin: Denies: Rash, Wounds Neurological: Denies: Numbness, Tingling, Focal weakness Psychiatric: Denies: Anxiety, Depression, Homicidal Ideations, Suicidal Ideations Hematologic/ Lymphatic: Denies: Easy Bruising, Easy Bleeding - Physical Exam General: Alert, Oriented x3, Cooperative HEENT: Atraumatic, PERRLA, EOMI, Normocephalic Neck: Supple, No JVD, Negative Carotid Bruits Lungs: Clear to auscultation, Normal air movement Cardiovascular: Regular rate, No murmurs Abdomen: Bowel Sounds Present, Soft, Non Tender Extremities: No edema, Capillary Refill Less than 3 Seconds Skin: No rashes, No breakdown Musculoskeletal: No Tenderness to Palpation of Joints or Extremities Neurological: Cranial nerves II-XII grossly intact Psych/Mental Status: Normal Affect, Appropriate Vital Signs Temp Pulse Resp BP Pulse Ox 97.6 F L 51 L 16 152/91 H 98 11/29/17 09:00 11/29/17 09:00 11/29/17 09:00 11/29/17 09:00 11/29/17 09:00 Oxygen Flow Rate (L/min) 3 Oxygen Delivery Method Nasal Cannula Weight: 57.2 kg Body Mass Index (BMI) 19.7 Laboratory Tests Past 24 Hrs 11/29/17 11/29/17 11/29/17 05:55 05:55 05:55 WBC 8.9 RBC 4.26 L Hgb 11.6 L Hct 37.1 L MCV 87.1 MCH 27.2 MCHC 31.3 L RDW 17.3 H RDW Differential 54.1 H Plt Count 202 MPV 9.4 Immature Gran % (Auto) 0.300 Neut % (Auto) 93.9 H Lymph % (Auto) 4.4 L [place] % (Auto) 1.2 Eos % (Auto) 0.1 Baso % (Auto) 0.1 Absolute Neuts (auto) 8.4 H Absolute Lymphs (auto) 0.39 L Total Counted Not Reportable PT 15.5 H INR 1.2 Sodium 136 Potassium 4.5 Chloride 95 L Carbon Dioxide 26.0 Anion Gap 15 BUN 47 H Creatinine 8.11 H* Estim Creat Clear Calc 8.03 Est GFR (MDRD) Af Amer 9 L Est GFR (MDRD) Non-Af 7 L BUN/Creatinine Ratio 5.8 L Glucose 166 H Calcium 7.9 L Assessment/Plan All Active Problems (Last Reviewed 11/05/17 @ 14:10 by Terence Gould MD) Lung nodule (Resolved) Ulcer of foot (Resolved) ESRD. HD today. Pleural effusions. for pleural tap today CHF. fluids removal as tolerated
--- NOTE | 2017-11-29 11:01 | RAD_ITS ---
STUDY: X-RAY CHEST REASON FOR EXAM: Male, 57 years old. Status post right thoracentesis. TECHNIQUE: AP inspiration and expiration views were obtained. COMPARISON: Comparison is made with prior study dated November 28, 2017. FINDINGS: EKG electrodes are seen. The patient is status post right thoracentesis. Residual pleural-parenchymal changes are seen in both lungs. There is no evidence of pneumothorax. RAD/Chest Insp/Exp 2 View IMPRESSION: Status post right thoracentesis. There is no evidence of a pneumothorax. Electronically Signed: Michel Bustillo MD at 13:01 EDT Tel [phone], Service support ,
[2017-11-29] MEDS: Calcium Acetate 667 MG Capsule PO ×2 (11:30→17:28)
[2017-11-29] MEDS: Lisinopril 10 MG Tablet 20 MG PO (11:30)
--- NOTE | 2017-11-29 11:30 | NURSING ---
Patient arrived to floor post thoracentesis. Site to right lung dry and intact. Scant amount of shadow drainage marked. Patient denies pain. Vitals obtained and entered. Medications provided as ordered and as patient takes prior to dialysis.
[2017-11-29] MEDS: Metoprolol Tartrate 25 MG Tablet PO ×2 (11:31→22:56)
[2017-11-29] MEDS: Amiodarone 200 MG Tablet PO (11:31)
--- NOTE | 2017-11-29 12:10 | CASEMGMT ---
Face to Face with patient for initial transition planning/care coordination assessment. [place] introduced self and role at [facility], pt voices understanding and consents to assessment at this time. Pt is sitting up in chair in no distress at this time. Pt is A/Ox4 at this time and answers all questions appropriately at this time. Care providers, pharmacy, and demographics verified. See attached link. Pt voices no further concerns/needs at this time. Advised pt to ask for CM if any further questions/concerns/needs arise, voices understanding. PLAN: Home [place]
--- NOTE | 2017-11-29 12:57 | PCM.CONS.C ---
Reason for Consult Date of Consultation: 11/29/17 Reason for Consultation: Assistance with cardiac care. History of Present Illness: HUGO MASON, is a 57 M who presented to the emergency room due to progressive shortness of breath. He is a gentleman with a history of paroxysmal atrial tachyarrhythmia nonischemic cardiomyopathy sick sinus syndrome status post ICD implantation and hyperlipidemia. He had been seen in the hospital here in [place] a while ago and was noted to have methicillin's sensitive staph aureus bacteremia and an ICD extraction was recommended. An echocardiogram which was performed here at demonstrated ejection fraction approximately 30% he was transferred to the [facility] where he was evaluated they repeated the echocardiogram and determined that the ejection fraction was 50% with severe tricuspid regurgitation and a mobile echodensity near the tricuspid leaflets. The device and leads of the ICD was successfully extracted on September 04 per ID recommendations but it was felt that with his ejection fraction having improved 50% he was not deemed a candidate for device reimplantation. Amiodarone was also discontinued in light of junctional bradycardia. He has had constant chest discomfort which he describes as sharp sometimes responding to ibuprofen. He has not been able to get anything much stronger for that. He also feels weak but has not had any dizziness near syncope or syncope. He had been doing well and then presented to the hospital at the end of September with atrial fibrillation with rapid ventricular response rate and then appeared to be back in sinus rhythm. He was started back on amiodarone and also anticoagulation. He also was noted to have abnormal cardiac troponin enzymes which was thought to be a type II event. Based on the above he underwent a pharmacologic myocardial perfusion stress test which demonstrated no evidence of ischemia his gated ejection fraction was reported at 36%. He has had no heart failure symptoms he tells me that he has been feeling much better since his discharge. He had been seen in the office and had been doing well but then he says that over the last few weeks he had been getting progressively more short of breath. In the emergency room he was noted to have a right pleural effusion and was scheduled to have an outpatient thoracentesis but his condition was getting worse so he presented back last night and was admitted. He successfully underwent to the thoracentesis this morning with over a liter of fluid being removed. Past Medical History Allergies/Adverse Reactions: Allergies onion Adverse Reaction (Severe, Verified 11/28/17 17:44) Unknown Home Medications: Ambulatory Orders Medication Instructions Recorded Acetaminophen [Tylenol] 1,000 mg PO Q4H PRN PRN 05/17/15 Calcium Acetate [Phoslo Gel Cap] 667 mg PO TIDCM 05/17/15 Cinacalcet HCl [Sensipar] 30 mg PO DAILY 09/08/15 Folic Acid/Vit Bcomp,C [Renal-Miguel Angel 0.8 mg PO DAILY 05/22/17 Tablet] metoprolol tartrate 25 mg tablet 25 mg PO BID 09/17/17 nitroglycerin 0.4 mg sublingual 0.4 mg SUBLINGUAL Q5-15M PRN 09/17/17 tablet Fluticasone 0.05% [Flonase Nasal 2 spray INTRANASAL DAILY PRN PRN 10/23/17 [place]] Lisinopril [Prinivil] 20 mg PO DAILY 10/23/17 Nortriptyline HCl [Pamelor] 25 mg PO QHS 10/23/17 omeprazole 20 mg capsule,delayed 20 mg PO BID #60 cap 11/25/17 release Amiodarone HCl [Cordarone] 200 mg PO BID 11/26/17 Apixaban [Eliquis] 2.5 mg PO BID 11/26/17 Albuterol Sulfate [Ventolin Hfa] 1 - 2 puff IH Q4H PRN PRN 11/28/17 Hydroxyzine Pamoate [Hydroxyzine 50 mg PO TID PRN PRN 11/28/17 Pamoate] Past Medical History (Chronic Problems): Chronic Problems (Last Reviewed 11/05/17 @ 14:10 by Terence Gould MD) ICD extraction (Chronic) MSSA Bacteremia 08/2017 @[facility] Atrial fibrillation (Chronic) 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 use of anticoagulant (Chronic) Elevated troponin (Chronic) not trending Mitral insufficiency (Chronic) Implantable cardioverter-defibrillator (ICD) in situ (Chronic) implanted in 12/07/2015 at [facility] Sick sinus syndrome (Chronic) S/P dual-chamber Pacemaker/ICD ESRD (end stage renal disease) (Chronic) on HD HTN (hypertension) (Chronic) Pulmonary HTN (Chronic) Anemia with chronic illness (Chronic) ESRD Non-compliance (Chronic) non-compliant with meds and with dialysis Non-compliance with renal dialysis (Chronic) Respiratory failure with hypoxia (Chronic) Bilateral pleural effusion (Chronic) Cardiomyopathy (Chronic) CHF (congestive heart failure) (Chronic) EF 30% Coronary artery arteriosclerosis (Chronic) 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 Paternal History Items: Renal Disease, - - The patient's mother at age of 69 with a history of kidney cancer. Lives: Spouse/ Significant Other Smoking Status: Former smoker Tobacco Use: Chew Alcohol: None Drugs: None Review of Systems - Review of Systems General: Denies: Fever, Night Sweats, Fatigue Cardiovascular: Reports: Shortness of Breath, Shortness of Breath at Rest, Shortness of Breath with Exertion. Denies: Chest Discomfort, Orthopnea, PND, Peripheral Edema, Palpitations, Lightheadedness, Dizziness, Near Syncope, Syncope Respiratory: Denies: Cough, Sputum Production, Hemoptysis Gastrointestinal: Denies: Hematemesis, Hematochezia, Melena Genitourinary: Denies: Dysuria, Hematuria Skin: Denies: Rash Subjectve: Pleasant man in no apparent distress Objective: Vital Signs Temp Pulse Resp BP Pulse Ox 97.6 F L 60 16 156/111 H 99 11/29/17 11:30 11/29/17 11:31 11/29/17 11:30 11/29/17 11:31 11/29/17 11:30 Oxygen Flow Rate (L/min) 3 Oxygen Delivery Method Nasal Cannula Weight: 126 lb 1.671 oz Body Mass Index (BMI) 19.7 General: Ill Appearing HEENT: PERRL, EOMI, Sclera Non Icteric Neck: Supple, Good ROM, No Lymph Node Enlargement Lungs: Clear to auscultation Cardiovascular: Regular Rhythm, Normal S1, Normal S2, No Murmurs, No Rubs, No Gallops 11/29/17 05:55: WBC 8.9, RBC 4.26 L, Hgb 11.6 L, Hct 37.1 L, MCV 87.1, MCH 27.2, MCHC 31.3 L, RDW 17.3 H, RDW Differential 54.1 H, Plt Count 202, MPV 9.4, Immature Gran % (Auto) 0.300, Neut % (Auto) 93.9 H, Lymph % (Auto) 4.4 L, [place] % (Auto) 1.2, Eos % (Auto) 0.1, Baso % (Auto) 0.1, Absolute Neuts (auto) 8.4 H, Total Counted Not Reportable 11/29/17 05:55: PT 15.5 H, INR 1.2 11/29/17 05:55: Sodium 136, Potassium 4.5, Chloride 95 L, Carbon Dioxide 26.0, Anion Gap 15, BUN 47 H, Creatinine 8.11 H*, Est GFR (MDRD) Af Amer 9 L, Est GFR (MDRD) Non-Af 7 L, BUN/Creatinine Ratio 5.8 L, Glucose 166 H, Calcium 7.9 L Rhythm: EKG: ECHO: Stress Test: Cardiac Cath: PCI: CT Surgery: Holter monitor: EPS: PPM: CXR: Chest CT Scan: Assessment/Plan 1. Paroxysmal atrial fibrillation I48.0 He currently presents with paroxysmal atrial fibrillation and has converted back to sinus rhythm and is maintaining the same with being on the amiodarone. The plan will be to continue the same medications without making any changes. His last echocardiogram had demonstrated an ejection fraction of 55%. He has wanted to be on a factor X inhibitor and this will be considered. 2. Essential hypertension I10 His blood pressure appears to be under good control at this particular time and my recommendation will be for him to continue on the same without making any changes. 3. Implantable cardioverter-defibrillator (ICD) He is status post ICD extraction he does not appear to have had any bradyarrhythmias or tachyarrhythmias and the plan will be to continue him on his low-dose amiodarone only. His electrocardiogram today demonstrates sinus bradycardia with a rate of 50 bpm and T-wave anterior inversion. 4. Cardiomyopathy, unspecified type I42.9 Plan As noted previously he did have evidence of a cardiomyopathy but it appears that this has improved and will continue to follow him. He will remain on his current medications with the KAROL inhibitor as well as the beta-michael. 5. Coronary artery arteriosclerosis I25.10 Plan He does have a history of coronary atherosclerosis. His last catheterization was in 2014 and at that time it demonstrated an LAD stenosis of approximately 75% circumflex artery with 80-95% sequential stenosis. He underwent angioplasty and stenting of both arteries with a 2.0 drug-eluting stent in the distal circumflex artery and a nondominant right coronary artery with luminal irregularities. He has not had any further chest pain since then and his most recent stress test which demonstrated no evidence of ischemia was reassuring. 6. 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 No other changes will be made at this particular time. 7. Right pleural effusion. He does have evidence of right pleural effusion for which she has undergone thoracentesis. The etiology is likely secondary to fluid overload. I would recommend more aggressive dialysis to keep him in a more negative balance. Thank you for allowing me to participate in the care of your patient. Please don't hesitate to call if any issues arise
--- NOTE | 2017-11-29 13:03 | CON.PCM_ITS ---
Reason for Consult Date of Consultation: 11/29/17 Reason for Consultation: Assistance with cardiac care. History of Present Illness: HUGO MASON, is a 57 M who presented to the emergency room due to progressive shortness of breath. He is a gentleman with a history of paroxysmal atrial tachyarrhythmia nonischemic cardiomyopathy sick sinus syndrome status post ICD implantation and hyperlipidemia. He had been seen in the hospital here in [place] a while ago and was noted to have methicillin's sensitive staph aureus bacteremia and an ICD extraction was recommended. An echocardiogram which was performed here at demonstrated ejection fraction approximately 30% he was transferred to the [facility] where he was evaluated they repeated the echocardiogram and determined that the ejection fraction was 50% with severe tricuspid regurgitation and a mobile echodensity near the tricuspid leaflets. The device and leads of the ICD was successfully extracted on September 04 per ID recommendations but it was felt that with his ejection fraction having improved 50% he was not deemed a candidate for device reimplantation. Amiodarone was also discontinued in light of junctional bradycardia. He has had constant chest discomfort which he describes as sharp sometimes responding to ibuprofen. He has not been able to get anything much stronger for that. He also feels weak but has not had any dizziness near syncope or syncope. He had been doing well and then presented to the hospital at the end of September with atrial fibrillation with rapid ventricular response rate and then appeared to be back in sinus rhythm. He was started back on amiodarone and also anticoagulation. He also was noted to have abnormal cardiac troponin enzymes which was thought to be a type II event. Based on the above he underwent a pharmacologic myocardial perfusion stress test which demonstrated no evidence of ischemia his gated ejection fraction was reported at 36%. He has had no heart failure symptoms he tells me that he has been feeling much better since his discharge. He had been seen in the office and had been doing well but then he says that over the last few weeks he had been getting progressively more short of breath. In the emergency room he was noted to have a right pleural effusion and was scheduled to have an outpatient thoracentesis but his condition was getting worse so he presented back last night and was admitted. He successfully underwent to the thoracentesis this morning with over a liter of fluid being removed. Past Medical History Allergies/Adverse Reactions: Allergies onion Adverse Reaction (Severe, Verified 11/28/17 17:44) Unknown Home Medications: Ambulatory Orders Medication Instructions Recorded Acetaminophen [Tylenol] 1,000 mg PO Q4H PRN PRN 05/17/15 Calcium Acetate [Phoslo Gel Cap] 667 mg PO TIDCM 05/17/15 Cinacalcet HCl [Sensipar] 30 mg PO DAILY 09/08/15 Folic Acid/Vit Bcomp,C [Renal-Miguel Angel 0.8 mg PO DAILY 05/22/17 Tablet] metoprolol tartrate 25 mg tablet 25 mg PO BID 09/17/17 nitroglycerin 0.4 mg sublingual 0.4 mg SUBLINGUAL Q5-15M PRN 09/17/17 tablet Fluticasone 0.05% [Flonase Nasal 2 spray INTRANASAL DAILY PRN PRN 10/23/17 [place]] Lisinopril [Prinivil] 20 mg PO DAILY 10/23/17 Nortriptyline HCl [Pamelor] 25 mg PO QHS 10/23/17 omeprazole 20 mg capsule,delayed 20 mg PO BID #60 cap 11/25/17 release Amiodarone HCl [Cordarone] 200 mg PO BID 11/26/17 Apixaban [Eliquis] 2.5 mg PO BID 11/26/17 Albuterol Sulfate [Ventolin Hfa] 1 - 2 puff IH Q4H PRN PRN 11/28/17 Hydroxyzine Pamoate [Hydroxyzine 50 mg PO TID PRN PRN 11/28/17 Pamoate] Past Medical History (Chronic Problems): Chronic Problems (Last Reviewed 11/05/17 @ 14:10 by Terence Gould MD) ICD extraction (Chronic) MSSA Bacteremia 08/2017 @[facility] Atrial fibrillation (Chronic) [facility] current use of anticoagulant (Chronic) Elevated troponin (Chronic) not trending Mitral insufficiency (Chronic) Implantable cardioverter-defibrillator (ICD) in situ (Chronic) implanted in 12/07/2015 at [facility] Sick sinus syndrome (Chronic) S/P dual-chamber Pacemaker/ICD ESRD (end stage renal disease) (Chronic) on HD HTN (hypertension) (Chronic) Pulmonary HTN (Chronic) Anemia with chronic illness (Chronic) ESRD Non-compliance (Chronic) non-compliant with meds and with dialysis Non-compliance with renal dialysis (Chronic) Respiratory failure with hypoxia (Chronic) Bilateral pleural effusion (Chronic) Cardiomyopathy (Chronic) CHF (congestive heart failure) (Chronic) EF 30% Coronary artery arteriosclerosis (Chronic) 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 Paternal History Items: Renal Disease, - - The patient's mother at age of 69 with a history of kidney cancer. Lives: Spouse/ Significant Other Smoking Status: Former smoker Tobacco Use: Chew Alcohol: None Drugs: None Review of Systems - Review of Systems General: Denies: Fever, Night Sweats, Fatigue Cardiovascular: Reports: Shortness of Breath, Shortness of Breath at Rest, Shortness of Breath with Exertion. Denies: Chest Discomfort, Orthopnea, PND, Peripheral Edema, Palpitations, Lightheadedness, Dizziness, Near Syncope, Syncope Respiratory: Denies: Cough, Sputum Production, Hemoptysis Gastrointestinal: Denies: Hematemesis, Hematochezia, Melena Genitourinary: Denies: Dysuria, Hematuria Skin: Denies: Rash Subjectve: Pleasant man in no apparent distress Objective: Vital Signs Temp Pulse Resp BP Pulse Ox 97.6 F L 60 16 156/111 H 99 11/29/17 11:30 11/29/17 11:31 11/29/17 11:30 11/29/17 11:31 11/29/17 11:30 Oxygen Flow Rate (L/min) 3 Oxygen Delivery Method Nasal Cannula Weight: 126 lb 1.671 oz Body Mass Index (BMI) 19.7 General: Ill Appearing HEENT: PERRL, EOMI, Sclera Non Icteric Neck: Supple, Good ROM, No Lymph Node Enlargement Lungs: Clear to auscultation Cardiovascular: Regular Rhythm, Normal S1, Normal S2, No Murmurs, No Rubs, No Gallops 11/29/17 05:55: WBC 8.9, RBC 4.26 L, Hgb 11.6 L, Hct 37.1 L, MCV 87.1, MCH 27.2 , MCHC 31.3 L, RDW 17.3 H, RDW Differential 54.1 H, Plt Count 202, MPV 9.4, Immature Gran % (Auto) 0.300, Neut % (Auto) 93.9 H, Lymph % (Auto) 4.4 L, [place] % (Auto) 1.2, Eos % (Auto) 0.1, Baso % (Auto) 0.1, Absolute Neuts (auto) 8.4 H, Total Counted Not Reportable 11/29/17 05:55: PT 15.5 H, INR 1.2 11/29/17 05:55: Sodium 136, Potassium 4.5, Chloride 95 L, Carbon Dioxide 26.0, Anion Gap 15, BUN 47 H, Creatinine 8.11 H*, Est GFR (MDRD) Af Amer 9 L, Est GFR (MDRD) Non-Af 7 L, BUN/Creatinine Ratio 5.8 L, Glucose 166 H, Calcium 7.9 L Rhythm: EKG: ECHO: Stress Test: Cardiac Cath: PCI: CT Surgery: Holter monitor: EPS: PPM: CXR: Chest CT Scan: Assessment/Plan 1. Paroxysmal atrial fibrillation I48.0 He currently presents with paroxysmal atrial fibrillation and has converted back to sinus rhythm and is maintaining the same with being on the amiodarone. The plan will be to continue the same medications without making any changes. His last echocardiogram had demonstrated an ejection fraction of 55%. He has wanted to be on a factor X inhibitor and this will be considered. 2. Essential hypertension I10 His blood pressure appears to be under good control at this particular time and my recommendation will be for him to continue on the same without making any changes. 3. Implantable cardioverter-defibrillator (ICD) He is status post ICD extraction he does not appear to have had any bradyarrhythmias or tachyarrhythmias and the plan will be to continue him on his low-dose amiodarone only. His electrocardiogram today demonstrates sinus bradycardia with a rate of 50 bpm and T-wave anterior inversion. 4. Cardiomyopathy, unspecified type I42.9 Plan As noted previously he did have evidence of a cardiomyopathy but it appears that this has improved and will continue to follow him. He will remain on his current medications with the KAROL inhibitor as well as the beta-michael. 5. Coronary artery arteriosclerosis I25.10 Plan He does have a history of coronary atherosclerosis. His last catheterization was in 2014 and at that time it demonstrated an LAD stenosis of approximately 75 % circumflex artery with 80-95% sequential stenosis. He underwent angioplasty and stenting of both arteries with a 2.0 drug-eluting stent in the distal circumflex artery and a nondominant right coronary artery with luminal irregularities. He has not had any further chest pain since then and his most recent stress test which demonstrated no evidence of ischemia was reassuring. 6. ESRD (end stage renal disease) N18.6 on HD He still has end-stage renal disease for which he has been followed up by the neon technician as well as undergoing chronic dialysis. No other changes will be made at this particular time. 7. Right pleural effusion. He does have evidence of right pleural effusion for which she has undergone thoracentesis. The etiology is likely secondary to fluid overload. I would recommend more aggressive dialysis to keep him in a more negative balance. Thank you for allowing me to participate in the care of your patient. Please don't hesitate to call if any issues arise
--- NOTE | 2017-11-29 13:27 | PCM.PROGNOTE ---
<Edith Lewis - Last Filed: 11/29/17 13:35> Subjective: Patient seen and examined. States shortness of breath has significantly improved overnight. Denies further chest pain. Lower extremity edema improved as well. Scheduled for right thoracentesis this morning. Denies other current complaints. - Physical Exam General: Alert, Oriented x3, Cooperative, No apparent distress HEENT: Atraumatic, PERRLA, EOMI, Normocephalic Oral: Dry Mucosa, - - Dryness/scabbing of lips Neck: Supple, No JVD, Negative Carotid Bruits Lungs: Clear to auscultation, Diminished Cardiovascular: Regular Rhythm, Normal S1, Normal S2, Bradycardic Abdomen: Bowel Sounds Present, Soft, Non Tender, Non-Distended Extremities: - - Left upper extremity AV fistula with hematoma, scattered scabbing throughout secondary to patient picking. Skin: No rashes, No breakdown Musculoskeletal: No Tenderness to Palpation of Joints or Extremities Neurological: Cranial nerves II-XII grossly intact Psych/Mental Status: Normal Affect, Appropriate Vital Signs Temp Pulse Resp BP Pulse Ox 97.6 F L 60 16 156/111 H 99 11/29/17 11:30 11/29/17 11:31 11/29/17 11:30 11/29/17 11:31 11/29/17 11:30 Oxygen Flow Rate (L/min) 3 Oxygen Delivery Method Nasal Cannula Weight: 57.2 kg Body Mass Index (BMI) 19.7 Laboratory Tests Past 24 Hrs 11/29/17 11/29/17 11/29/17 05:55 05:55 05:55 WBC 8.9 RBC 4.26 L Hgb 11.6 L Hct 37.1 L MCV 87.1 MCH 27.2 MCHC 31.3 L RDW 17.3 H RDW Differential 54.1 H Plt Count 202 MPV 9.4 Immature Gran % (Auto) 0.300 Neut % (Auto) 93.9 H Lymph % (Auto) 4.4 L [place] % (Auto) 1.2 Eos % (Auto) 0.1 Baso % (Auto) 0.1 Absolute Neuts (auto) 8.4 H Absolute Lymphs (auto) 0.39 L Total Counted Not Reportable PT 15.5 H INR 1.2 Sodium 136 Potassium 4.5 Chloride 95 L Carbon Dioxide 26.0 Anion Gap 15 BUN 47 H Creatinine 8.11 H* Estim Creat Clear Calc 8.03 Est GFR (MDRD) Af Amer 9 L Est GFR (MDRD) Non-Af 7 L BUN/Creatinine Ratio 5.8 L Glucose 166 H Calcium 7.9 L Medical Necessity - Tobacco Use Smoking Status: Former smoker Tobacco Use: Chew Assessment/Plan All Active Problems (Last Reviewed 11/05/17 @ 14:10 by Terence Gould MD) Lung nodule (Resolved) Ulcer of foot (Resolved) Patient is a 57-year-old male admitted 10/29/2017 due to worsening shortness of breath. Patient has a past medical history of chronic atrial fibrillation, chronic elevated troponin, chronic chest pain, COPD, chronic systolic CHF, cardiomyopathy, chronic hypoxic respiratory failure, end-stage renal disease on hemodialysis, hypertension, anemia of chronic disease, pulmonary hypertension, sick sinus syndrome status post dual chamber pacemaker/ICD. 1. Worsening shortness of breath/pleural effusions-chest x-ray on admission with small bilateral pleural effusions, right greater than left. Findings similar to previous study 11/26/2017. Continue supplement oxygen to maintain O2 at or above 90%. Dr. Kunz consulted. Patient underwent right thoracentesis with 12 50 cc removed. Confirmed presence of transudate effusions secondary to underlying end-stage renal disease/chronic systolic CHF. Continue medical management/schedule dialysis. Patient can continue follow-up with pulmonary medicine as outpatient. 2. COPD/chronic hypoxic respiratory failure-chronically wears 2 L nasal cannula. At baseline. Wean oxygen as tolerated to maintain O2 at or above 90%. No signs of acute COPD exacerbation. Albuterol and DuoNeb aerosols. 3. Paroxysmal atrial fibrillation-Continue home amiodarone, metoprolol regimen. Hold Eliquis. Cardiology consulted. Patient converted to sinus bradycardia this morning. Continue current regimen. Resume Eliquis tomorrow. 4. Chronic chest pain/chronic elevated troponin-recent stress test 10/24/2017 without evidence of ischemia. LVEF 36%. 5. Chronic systolic CHF/cardiomyopathy/sick sinus syndrome-status post AICD removal secondary to MSSA bacteremia. Continue home lisinopril, metoprolol. 6. End-stage renal disease-on hemodialysis Saturday, Saturday, Saturday. Follows with Dr. Balbuena. Hemodialysis today. Nephrology consulted. 7. Anemia of chronic disease-stable. 8. Hypertension-continue home lisinopril, metoprolol regimen. 9. GERD-continue home omeprazole regimen. DVT prophylaxis-therapeutic dose Lovenox subcu. This patient was seen by [facility] [place] under the supervision of Dr. Victor. <Oniel Victor - Last Filed: 11/29/17 16:47> - Physical Exam Vital Signs Temp Pulse Resp BP Pulse Ox 97.6 F L 60 16 156/111 H 99 11/29/17 11:30 11/29/17 11:31 11/29/17 11:30 11/29/17 11:31 11/29/17 11:30 Oxygen Flow Rate (L/min) 3 Oxygen Delivery Method Nasal Cannula Weight: 57.2 kg Body Mass Index (BMI) 19.7 Intake and Output for Last 24 Hours 11/27/17 11/28/17 11/29/17 23:59 23:59 23:59 Intake Total 120 / 120 Balance 120 / 120 Laboratory Tests Past 24 Hrs 11/29/17 11/29/17 11/29/17 05:55 05:55 05:55 WBC 8.9 RBC 4.26 L Hgb 11.6 L Hct 37.1 L MCV 87.1 MCH 27.2 MCHC 31.3 L RDW 17.3 H RDW Differential 54.1 H Plt Count 202 MPV 9.4 Immature Gran % (Auto) 0.300 Neut % (Auto) 93.9 H Lymph % (Auto) 4.4 L [place] % (Auto) 1.2 Eos % (Auto) 0.1 Baso % (Auto) 0.1 Absolute Neuts (auto) 8.4 H Absolute Lymphs (auto) 0.39 L Total Counted Not Reportable PT 15.5 H INR 1.2 Sodium 136 Potassium 4.5 Chloride 95 L Carbon Dioxide 26.0 Anion Gap 15 BUN 47 H Creatinine 8.11 H* Estim Creat Clear Calc 8.03 Est GFR (MDRD) Af Amer 9 L Est GFR (MDRD) Non-Af 7 L BUN/Creatinine Ratio 5.8 L Glucose 166 H Calcium 7.9 L Assessment/Plan This patient was seen in conjunction with [facility] [place]. I have independently interviewed and examined the patient and reviewed pertinent historical, laboratory, and other data. Please refer to [facility] note for details of this patient's presentation, findings, and recommendations. I have reviewed [facility] note and concur with documented findings. In brief, patient is an 57 -year-old M with significant for end-stage renal disease on hemodialysis, paroxysmal A. 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 SKIN: No Rash Assessment: 1. Bilateral pleural effusion as well as right-sided thoracocentesis on 11/29/2017 2. Acute hypoxic respiratory failure secondary to COPD patient is on baseline home O2 3. Chronic systolic heart failure with ejection fraction of 36% 4. Cardiomyopathy status post AICD placement with subsequent removal as a result of MSSA bacteremia 5. End-stage renal disease on hemodialysis on Wednesdays and Fridays 6. Anemia secondary to anemia of chronic disorder 7. Hypertension 8. GERD Recommendations: 1. I have discussed the results of my overview and impressions with the patient 2. Options for management were reviewed Code Visit Inpatient E&M: 41417 Subs Hosp L3
--- NOTE | 2017-11-29 16:05 | NURSING ---
Dr. Pierce called floor at this time to speak with this nurse. Notified that patient had been started on dialysis and, according to dialysis nurse, the left upper arm fistula stopped working. Blood was observed backing up into the lines and into the bags on the dialysis machine. Patient reports he is unable to remember the name of the surgeon who placed the fistula and is unaware of which veins/arteries are involved. Dr. Pierce also spoke with the dialysis nurse on the phone. Informed that fistula was positive for bruit and thrill upon nursing assessments at 1000 and 1400 today. Made aware that we cannot continue with dialysis. Informed that next dialysis according to patient's regular schedule is Saturday.
[2017-11-29] MEDS: Cinacalcet HCl 30 MG Tablet PO (17:28)
[2017-11-29] MEDS: Folic Acid/Vitamin B Comp W-C 1 Capsule 1 CAP PO (17:29)
[2017-11-29] MEDS: Nepro Liquid 120 ML LIQUID PO ×2 (17:30→23:01)
--- NOTE | 2017-11-29 17:36 | PCM.CONS.GEN ---
Problem List (1) Problem with dialysis access Status: Acute Qualifiers: Encounter type: initial encounter Qualified Code(s): T82.898A - Other specified complication of vascular prosthetic devices, implants and grafts, initial encounter Reason for Consult Date of Consultation: 11/29/17 History of Present Illness: The patient is a 57 year old M who I have been asked to see by for urgent surgical consultation regarding a acutely thrombosed left upper extremity transposed basilic vein to brachial artery arteriovenous fistula. Electronic copy will be returned in the chart. This patient was asked to stop his Eliquis therapy 3 days ago to allow for a scheduled right thoracentesis. He states that on Saturday at his dialysis center they had difficulties with accessing his left upper arm AV fistula in the infiltrated. This late afternoon today at the [facility] attempts to access and run the fistula were met with inability and findings consistent with thrombosis. It is of note that I am instructed that the patient's right chest pleural to diminishing effusion was felt to be secondary renal clearances from his fistula. To complicate features the patient has had a previous right chest pacemaker/defibrillator indwelling device which incurred MSSA infection had to be removed. Those wires were placed through the right subclavian vein through the innominate into the SVC. He has had a previous remote right internal jugular tunneled dialysis catheter approximately 5 years ago. Since the creation of his left upper arm AV fistula he has not had any endovascular treatment. It appears however that he has had progressive ongoing aneurysmal change and poor clearance from the fistula. He has significant cardiac abnormality but most recently is felt to have had an ejection fraction of 50%. I have personally spoken with Dr. Terence Gould regarding my potential recommendations of proceeding with an attempted fistula salvage. The patient is felt to be currently stable to tolerate this. Pertinent chronic problems include the previous history of removal of the right chest ICD. Second lung nodule. Chronic atrial fibrillation. Chronic anticoagulation. Mitral insufficiency. Sick sinus syndrome. Stage V renal insufficiency on chronic hemodialysis. Hypertension. Pulmonary hypertension. Chronic anemia. Medical noncompliance. Chronic respiratory hypoxia. Congestive heart failure and cardiomyopathy. Hyper parathyroidism. COPD. History of kidney cancer and nephrectomy. 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) Elevated troponin (Chronic) not trending Mitral insufficiency (Chronic) Implantable cardioverter-defibrillator (ICD) in situ (Chronic) implanted in 12/07/2015 at [facility] Sick sinus syndrome (Chronic) S/P dual-chamber Pacemaker/ICD ESRD (end stage renal disease) (Chronic) on HD HTN (hypertension) (Chronic) Pulmonary HTN (Chronic) Anemia with chronic illness (Chronic) ESRD Non-compliance (Chronic) non-compliant with meds and with dialysis Non-compliance with renal dialysis (Chronic) Respiratory failure with hypoxia (Chronic) Bilateral pleural effusion (Chronic) Cardiomyopathy (Chronic) CHF (congestive heart failure) (Chronic) EF 30% Coronary artery arteriosclerosis (Chronic) 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 COPD (chronic obstructive pulmonary disease) (Chronic) History of nephrectomy (Chronic) History of kidney cancer (Chronic) Chest pain (Chronic) Medical History: Medical History (Last Reviewed 11/05/17 @ 14:10 by Terence Gould MD) Atrial fibrillation (Chronic) I48.91 [facility] current use of anticoagulant (Chronic) Z79.01 ESRD (end stage renal disease) (Chronic) N18.6 on HD HTN (hypertension) (Chronic) I10 Pulmonary HTN (Chronic) I27.2 Anemia with chronic illness (Chronic) D63.8 ESRD Non-compliance (Chronic) Z91.19 non-compliant with meds and with dialysis Non-compliance with renal dialysis (Chronic) Z91.15 Respiratory failure with hypoxia (Chronic) J96.91 Bilateral pleural effusion (Chronic) J90 Cardiomyopathy (Chronic) I42.9 CHF (congestive heart failure) (Chronic) I50.9 EF 30% Coronary artery arteriosclerosis (Chronic) I25.10 Parathyroid disease (Chronic) E21.5 due to ESRD COPD (chronic obstructive pulmonary disease) (Chronic) J44.9 History of kidney cancer (Chronic) Z85.528 Chest pain (Chronic) R07.9 Ulcer of foot (Resolved) L97.509 Allergies onion Adverse Reaction (Severe, Verified 11/28/17 17:44) Unknown Home Medications: Ambulatory Orders Medication Instructions Recorded Acetaminophen [Tylenol] 1,000 mg PO Q4H PRN PRN 05/17/15 Calcium Acetate [Phoslo Gel Cap] 667 mg PO TIDCM 05/17/15 Cinacalcet HCl [Sensipar] 30 mg PO DAILY 09/08/15 Folic Acid/Vit Bcomp,C [Renal-Miguel Angel 0.8 mg PO DAILY 05/22/17 Tablet] metoprolol tartrate 25 mg tablet 25 mg PO BID 09/17/17 nitroglycerin 0.4 mg sublingual 0.4 mg SUBLINGUAL Q5-15M PRN 09/17/17 tablet Fluticasone 0.05% [Flonase Nasal 2 spray INTRANASAL DAILY PRN PRN 10/23/17 [place]] Lisinopril [Prinivil] 20 mg PO DAILY 10/23/17 Nortriptyline HCl [Pamelor] 25 mg PO QHS 10/23/17 omeprazole 20 mg capsule,delayed 20 mg PO BID #60 cap 11/25/17 release Amiodarone HCl [Cordarone] 200 mg PO BID 11/26/17 Apixaban [Eliquis] 2.5 mg PO BID 11/26/17 Albuterol Sulfate [Ventolin Hfa] 1 - 2 puff IH Q4H PRN PRN 11/28/17 Hydroxyzine Pamoate [Hydroxyzine 50 mg PO TID PRN PRN 11/28/17 Pamoate] Surgical History: Surgical History (Last Reviewed 11/28/17 @ 18:36 by BIANCA [place]) History of nephrectomy (Chronic) Z98.890, Z90.5 Surgical History: - - AVF placement PAIGE, left nephrectomy for cancer, aicd in Lives: Spouse/ Significant Other Smoking Status: Former smoker Tobacco Use: Chew Alcohol: None Drugs: None - *Family History Maternal History Items: No pertinent history, - - Patient's mother at age of 73 with a history of end-stage renal failure. Paternal History Items: Renal Disease, - - The patient's mother at age of 69 with a history of kidney cancer. Review of Systems Constitutional: Denies: Anorexia Eyes: Denies: Blurred vision HEENT: Denies: Difficulty Hearing Cardiovascular: Reports: Chest Pain Respiratory: Denies: Cough Gastrointestinal: Denies: Abdominal Pain Genitourinary: Denies: Dysuria Musculoskeletal: Reports: Arm Pain Skin: Reports: Dryness Neurological: Denies: Balance problems Psychiatric: Denies: Anxiety Patient Problems: Active and Suspected Problems (Last Reviewed 11/05/17 @ 14:10 by Terence Gould MD) Problem with dialysis access (Acute) - Physical Exam General: Alert, Oriented x3, Cooperative, No apparent distress HEENT: Atraumatic Oral: Moist Mucosa Neck: Supple, Negative Carotid Bruits Lungs: - - Right chest breath sounds are reasonably clear. Left chest breath sounds slightly diminished throughout Cardiovascular: Irregular Rate Abdomen: Bowel Sounds Present, Non Tender Extremities: - - Left upper extremity has aneurysmal change to what appears to be a transposed basilic vein to brachial artery AV fistula. It is hyper pulsatile. No bruit. No thrill. There is evidence of ecchymosis and suggestion of extravasation Musculoskeletal: No Tenderness to Palpation of Joints or Extremities Vital Signs Temp Pulse Resp BP Pulse Ox 97.6 F L 47 L 16 156/111 H 99 11/29/17 11:30 11/29/17 14:55 11/29/17 11:30 11/29/17 11:31 11/29/17 11:30 Oxygen Flow Rate (L/min) 3 Oxygen Delivery Method Nasal Cannula Weight: 126 lb 1.671 oz Body Mass Index (BMI) 19.7 Intake and Output for Last 24 Hours 11/27/17 11/28/17 11/29/17 23:59 23:59 23:59 Intake Total 120 / 120 Balance 120 / 120 Laboratory Tests Past 24 Hrs 11/29/17 11/29/17 11/29/17 05:55 05:55 05:55 WBC 8.9 RBC 4.26 L Hgb 11.6 L Hct 37.1 L MCV 87.1 MCH 27.2 MCHC 31.3 L RDW 17.3 H RDW Differential 54.1 H Plt Count 202 MPV 9.4 Immature Gran % (Auto) 0.300 Neut % (Auto) 93.9 H Lymph % (Auto) 4.4 L [place] % (Auto) 1.2 Eos % (Auto) 0.1 Baso % (Auto) 0.1 Absolute Neuts (auto) 8.4 H Absolute Lymphs (auto) 0.39 L Total Counted Not Reportable PT 15.5 H INR 1.2 Sodium 136 Potassium 4.5 Chloride 95 L Carbon Dioxide 26.0 Anion Gap 15 BUN 47 H Creatinine 8.11 H* Estim Creat Clear Calc 8.03 Est GFR (MDRD) Af Amer 9 L Est GFR (MDRD) Non-Af 7 L BUN/Creatinine Ratio 5.8 L Glucose 166 H Calcium 7.9 L Assessment/Plan All Active Problems (Last Reviewed 11/05/17 @ 14:10 by Terence Gould MD) Problem with dialysis access (Acute) Lung nodule (Resolved) Ulcer of foot (Resolved) 57-year-old gentleman. He has an acutely thrombosed left upper extremity arteriovenous hemodialysis fistula. Unfortunately from history findings would suggest progressive central venous stenosis on the left with progressive aneurysmal change of the fistula. Now it is acutely thrombosed. He has had history of an ICD in the right chest with likely subsequent stricturing of his right subclavian possibly the innominate. I do not see any venous ectasia over the chest suggesting a more central occlusion. However I do not see a ready source for a future fistula placement. At this point I believe that it is reasonable to pursue an attempted salvage of the left upper extremity though the patient has been instructed that there is absolutely no guarantees that this fistula can be salvaged. Unfortunately I suspect there is a long-term degree of chronic high-grade venous stenosis which may make salvage difficult or impossible. Due to the thrombus load the patient will likely require thrombolysis. He is at increased risk for stroke and bleeding. In detail I discussed with him the technique, benefits, risks, alternatives. Double access will likely be required though I anticipate antegrade access for initiation. He has had an opportunity to ask and have questions answered. He has missed dialysis today. This will clearly be a more complicated procedure requiring increased interventional time. I believe that is pertinent to add him on tomorrow as Saturday my OR time will not be available to 4:00 in the afternoon. The patient's had an opportunity to ask and have questions answered and we will proceed as noted. Jamshid Pierce M.D., F.A.C.S.
[2017-11-29] MEDS: Pantoprazole Sodium 20 MG Tablet PO ×2 (18:02→22:56)
[2017-11-29] MEDS: Nortriptyline 25 MG Capsule PO (22:56)
[2017-11-29] MEDS: 0.9% NaCl Peripheral Flush Adult/Peds IV (23:02)
[2017-11-29] MEDS: Ondansetron 4 MG/2 ML Vial IV (23:02)
[2017-11-29] MEDS: hydrOXYzine PAM 25 MG Capsule 50 MG PO (23:08)
[2017-11-30] VITALS (16 sets, daily range): BP systolic 122–164; BP diastolic 78–98; PULSE 47–99; RESP 18–20; TEMP 36.1–36.6; O2SAT 94–100
[2017-11-30 07:11] LABS: Hematocrit 33.2 % (40-54); Hemoglobin 10.1 g/dl (13.0-16.5); Mean Corp Hgb Conc 30.4 g/gl (32-36); Mean Corpuscular Hgb 26.7 pg (27.0-32.0); Mean Corpuscular Volume 87.8 fL (80-94); Mean Platelet Vol. 9.3 fl (6.2-12.0); Platelet Count 212 K/mm3 (150-450); RBC Distribution Width CV 17.2 % (11.6-14.6); RBC Distribution Width SD 55.3 fl (35.1-43.9); Red Blood Count 3.78 M/mm3 (4.6-6.2); White Blood Count 14.7 K/mm3 (4.4-11.0)
[2017-11-30 07:16] LABS: Scan Indicated on CBC? Y/N NO
[2017-11-30 07:19] LABS: International Normalized Ratio 1.2; Prothrombin Time (Protime)PT. 14.8 SECONDS (11.7-14.9)
[2017-11-30 07:20] LABS: Partial Thromboplast Time 33.2 Seconds (24.1-36.2)
[2017-11-30 07:44] LABS: Anion Gap 9 (5-15); BUN 60 mg/dL (7-18); BUN/Creat Ratio 6.7 RATIO (10-20); Calcium,Total 7.5 mg/dL (8.5-10.1); Chloride 94 mmol/L (98-107); Creatinine, Serum 8.89 mg/dL (0.70-1.30); EST Glomerular Filtration Rate 7 mL/min (>60); Est Glom Filt Rate - Afr Amer 8 mL/min (>60); Estimated Creatinine Clearance 7.44 ml/min; Glucose 98 mg/dL (74-106); Potassium 4.7 mmol/L (3.5-5.1); Sodium Level 133 mmol/L (136-145)
--- NOTE | 2017-11-30 09:48 | PCM.PROGNOTE ---
Patient Problems: Active and Suspected Problems (Last Reviewed 11/05/17 @ 14:10 by Terence Gould MD) Problem with dialysis access (Acute) Subjective: The patient was seen and examined at the bedside this morning. Events from the last 24 hours have been reviewed. The patient is currently afebrile, hemodynamically stable and maintaining appropriate oxygen saturations on 3 L/min via nasal cannula. The patient reports overall improvement in his breathing quality. He is currently scheduled to undergo revision of his fistula later today. Objective: The patient's most recent lab work, culture data and imaging studies have all been personally reviewed. Patient underwent ultrasound-guided thoracentesis on November 29, during which time, 1.25 L of fluid was removed. No pleural fluid studies were sent. - Physical Exam General: Alert, Cooperative, No apparent distress HEENT: Atraumatic, PERRLA, Normocephalic Oral: No Gingival or Mucosal Lesions/ Ulcerations Neck: Supple, No Nodes, Trachea Midline Lungs: No rhonchi, No wheeze, No rales, Diminished Cardiovascular: Normal S1, Normal S2, Bradycardic, Murmur Abdomen: Bowel Sounds Present, Soft, Non Tender Extremities: No clubbing, No cyanosis, Edema Skin: No breakdown Musculoskeletal: Cachexia Lymphatic: No Cervical, Supraclavicular, or Inguinal Adenopathy Neurological: Neuro grossly intact Psych/Mental Status: Normal Affect, Appropriate Vital Signs Temp Pulse Resp BP Pulse Ox 98 F 53 L 20 H 138/81 H 98 11/30/17 08:30 11/30/17 08:30 11/30/17 08:30 11/30/17 08:30 11/30/17 08:30 Oxygen Flow Rate (L/min) 3 Oxygen Delivery Method Nasal Cannula Weight: 128 lb 1.417 oz Body Mass Index (BMI) 20.0 Intake and Output for Last 24 Hours 11/28/17 11/29/17 11/30/17 23:59 23:59 23:59 Intake Total 600 / 600 120 / 120 Output Total 0 / 0 Balance 600 / 600 120 / 120 Laboratory Tests Past 24 Hrs 11/30/17 11/30/17 11/30/17 06:42 06:42 06:42 WBC 14.7 H RBC 3.78 L Hgb 10.1 L Hct 33.2 L MCV 87.8 MCH 26.7 L MCHC 30.4 L RDW 17.2 H RDW Differential 55.3 H Plt Count 212 MPV 9.3 PT 14.8 INR 1.2 APTT 33.2 Sodium 133 L Potassium 4.7 Chloride 94 L Carbon Dioxide 30.0 Anion Gap 9 BUN 60 H Creatinine 8.89 H* Estim Creat Clear Calc 7.44 Est GFR (MDRD) Af Amer 8 L Est GFR (MDRD) Non-Af 7 L BUN/Creatinine Ratio 6.7 L Glucose 98 Calcium 7.5 L Clinical Impression(s) from Imaging Studies Chest X-Ray 11/28/17 16:13 IMPRESSION: Mild cardiomegaly. Bibasilar atelectasis. Small bilateral effusions, right side larger than left. Findings are similar to the previous study of 11/26/2017. Electronically Signed: Romero Morgan MD at 16:44 EDT , Service support , Thoracentesis Ultrasound 11/29/17 08:07 IMPRESSION: Ultrasound-guided right thoracentesis. Electronically Signed: Michel Bustillo MD at 12:00 EDT Tel [phone], Service support , Chest X-Ray 11/29/17 11:01 IMPRESSION: Status post right thoracentesis. There is no evidence of a pneumothorax. Electronically Signed: Michel Bustillo MD at 13:01 EDT Tel [phone], Service support , Medical Necessity - Tobacco Use Smoking Status: Former smoker Tobacco Use: Chew Assessment/Plan All Active Problems (Last Reviewed 11/05/17 @ 14:10 by Terence Gould MD) Problem with dialysis access (Acute) Lung nodule (Resolved) Ulcer of foot (Resolved) RECOMMENDATIONS: 1. Await surgical intervention of the patient's fistula. Continue hemodialysis accordingly. 2. Continue medical management of his underlying cardiac issues. 3. Continue bronchodilators and supplemental oxygen. 4. Follow-up in the pulmonary medicine clinic as scheduled. IMPRESSIONS: 1. Acute on chronic respiratory failure in the setting of chronic bilateral pleural effusions The patient has undergone thoracentesis previously which confirmed the presence of transudate of effusions, which are the consequence of his underlying cardiac disease and end-stage renal disease. Therapeutic thoracentesis was performed yesterday with 1.25 L of fluid removed. Pleural fluid studies were not sent. The patient is currently maintaining appropriate oxygen saturations on his baseline requirement. Recommend continued volume optimization through dialysis and medical management. The patient should continue to follow-up in the pulmonary medicine clinic as scheduled. 2. Paroxysmal atrial fibrillation Continue medical management per cardiology recommendations. 3. End-stage renal disease on hemodialysis The patient is currently scheduled to undergo revision of his fistula, due to its nonfunctioning status at the present time. This note was generated with [employer] dictation software. It may contain incorrect words, spelling, and punctuation that were not noted in checking the note before signing. Given that the patient is at his baseline from a respiratory perspective, will sign off. Please call with any additional questions. Code Visit Inpatient E&M: [id number] Subs Hosp L2
--- NOTE | 2017-11-30 09:54 | PN_ITS ---
Patient Problems: Active and Suspected Problems (Last Reviewed 11/05/17 @ 14:10 by Terence Gould MD ) Problem with dialysis access (Acute) Subjective: The patient was seen and examined at the bedside this morning. Events from the last 24 hours have been reviewed. The patient is currently afebrile, hemodynamically stable and maintaining appropriate oxygen saturations on 3 L/ min via nasal cannula. The patient reports overall improvement in his breathing quality. He is currently scheduled to undergo revision of his fistula later today. Objective: The patient's most recent lab work, culture data and imaging studies have all been personally reviewed. Patient underwent ultrasound-guided thoracentesis on November 29, during which time, 1.25 L of fluid was removed. No pleural fluid studies were sent. - Physical Exam General: Alert, Cooperative, No apparent distress HEENT: Atraumatic, PERRLA, Normocephalic Oral: No Gingival or Mucosal Lesions/ Ulcerations Neck: Supple, No Nodes, Trachea Midline Lungs: No rhonchi, No wheeze, No rales, Diminished Cardiovascular: Normal S1, Normal S2, Bradycardic, Murmur Abdomen: Bowel Sounds Present, Soft, Non Tender Extremities: No clubbing, No cyanosis, Edema Skin: No breakdown Musculoskeletal: Cachexia Lymphatic: No Cervical, Supraclavicular, or Inguinal Adenopathy Neurological: Neuro grossly intact Psych/Mental Status: Normal Affect, Appropriate Vital Signs Temp Pulse Resp BP Pulse Ox 98 F 53 L 20 H 138/81 H 98 11/30/17 08:30 11/30/17 08:30 11/30/17 08:30 11/30/17 08:30 11/30/17 08:30 Oxygen Flow Rate (L/min) 3 Oxygen Delivery Method Nasal Cannula Weight: 128 lb 1.417 oz Body Mass Index (BMI) 20.0 Intake and Output for Last 24 Hours 11/28/17 11/29/17 11/30/17 23:59 23:59 23:59 Intake Total 600 / 600 120 / 120 Output Total 0 / 0 Balance 600 / 600 120 / 120 Laboratory Tests Past 24 Hrs 11/30/17 11/30/17 11/30/17 06:42 06:42 06:42 WBC 14.7 H RBC 3.78 L Hgb 10.1 L Hct 33.2 L MCV 87.8 MCH 26.7 L MCHC 30.4 L RDW 17.2 H RDW Differential 55.3 H Plt Count 212 MPV 9.3 PT 14.8 INR 1.2 APTT 33.2 Sodium 133 L Potassium 4.7 Chloride 94 L Carbon Dioxide 30.0 Anion Gap 9 BUN 60 H Creatinine 8.89 H* Estim Creat Clear Calc 7.44 Est GFR (MDRD) Af Amer 8 L Est GFR (MDRD) Non-Af 7 L BUN/Creatinine Ratio 6.7 L Glucose 98 Calcium 7.5 L Clinical Impression(s) from Imaging Studies Chest X-Ray 11/28/17 16:13 IMPRESSION: Mild cardiomegaly. Bibasilar atelectasis. Small bilateral effusions, right side larger than left. Findings are similar to the previous study of 11/26/2017. Electronically Signed: Romero Morgan MD at 16:44 EDT , Service support , Thoracentesis Ultrasound 11/29/17 08:07 IMPRESSION: Ultrasound-guided right thoracentesis. Electronically Signed: Michel Bustillo MD at 12:00 EDT Tel [phone], Service support , Chest X-Ray 11/29/17 11:01 IMPRESSION: Status post right thoracentesis. There is no evidence of a pneumothorax. Electronically Signed: Michel Bustillo MD at 13:01 EDT Tel [phone], Service support , Medical Necessity - Tobacco Use Smoking Status: Former smoker Tobacco Use: Chew Assessment/Plan All Active Problems (Last Reviewed 11/05/17 @ 14:10 by Terence Gould MD) Problem with dialysis access (Acute) Lung nodule (Resolved) Ulcer of foot (Resolved) RECOMMENDATIONS: 1. Await surgical intervention of the patient's fistula. Continue hemodialysis accordingly. 2. Continue medical management of his underlying cardiac issues. 3. Continue bronchodilators and supplemental oxygen. 4. Follow-up in the pulmonary medicine clinic as scheduled. IMPRESSIONS: 1. Acute on chronic respiratory failure in the setting of chronic bilateral pleural effusions The patient has undergone thoracentesis previously which confirmed the presence of transudate of effusions, which are the consequence of his underlying cardiac disease and end-stage renal disease. Therapeutic thoracentesis was performed yesterday with 1.25 L of fluid removed. Pleural fluid studies were not sent. The patient is currently maintaining appropriate oxygen saturations on his baseline requirement. Recommend continued volume optimization through dialysis and medical management. The patient should continue to follow-up in the pulmonary medicine clinic as scheduled. 2. Paroxysmal atrial fibrillation Continue medical management per cardiology recommendations. 3. End-stage renal disease on hemodialysis The patient is currently scheduled to undergo revision of his fistula, due to its nonfunctioning status at the present time. This note was generated with [employer] dictation software. It may contain incorrect words, spelling, and punctuation that were not noted in checking the note before signing. Given that the patient is at his baseline from a respiratory perspective, will sign off. Please call with any additional questions. Code Visit Inpatient E&M: [id number] Subs Hosp L2
[2017-11-30] MEDS: Folic Acid/Vitamin B Comp W-C 1 Capsule 1 CAP PO (10:28)
[2017-11-30] MEDS: Amiodarone 200 MG Tablet PO (10:28)
[2017-11-30] MEDS: Pantoprazole Sodium 20 MG Tablet PO ×2 (10:29→22:17)
[2017-11-30] MEDS: Cinacalcet HCl 30 MG Tablet PO (10:29)
[2017-11-30] MEDS: Lisinopril 10 MG Tablet 20 MG PO (10:30)
[2017-11-30] MEDS: Metoprolol Tartrate 25 MG Tablet PO ×2 (10:33→22:18)
--- NOTE | 2017-11-30 10:55 | NURSING ---
1050 pt down to soap slab[facility] for procedure.pt aware of procedure. vss and verbal report given to [facility] staff. Charli Kemp RN
[2017-11-30] MEDS: Alteplase 2 MG/2 ML Vial 10 MG IV (11:10)
--- NOTE | 2017-11-30 11:26 | PCM.PROGNOTE ---
<Edith Lewis - Last Filed: 11/30/17 11:34> Patient Problems: Active and Suspected Problems (Last Reviewed 11/05/17 @ 14:10 by Terence Gould MD) Problem with dialysis access (Acute) Subjective: Patient seen and examined. Drowsy this morning. States breathing is improved. Scheduled to undergo surgery this afternoon to attempt to salvage left upper extremity fistula with Dr. Pierce. Denies current complaints. - Physical Exam General: Alert, Oriented x3, Cooperative, No apparent distress HEENT: Atraumatic, PERRLA, EOMI, Normocephalic Oral: Dry Mucosa Neck: Supple, No JVD, Negative Carotid Bruits Lungs: Clear to auscultation, Diminished Cardiovascular: Regular rate, Regular Rhythm, Normal S1, Normal S2, No murmurs Abdomen: Bowel Sounds Present, Soft, Non Tender, Non-Distended Extremities: No clubbing, No cyanosis, No edema, Capillary Refill Less than 3 Seconds, - - Left upper extremity AV fistula with hematoma, scattered scabbing throughout secondary to patient picking. Skin: No rashes, No breakdown Musculoskeletal: No Tenderness to Palpation of Joints or Extremities Neurological: Cranial nerves II-XII grossly intact, Neuro grossly intact Psych/Mental Status: Normal Affect, Appropriate Vital Signs Temp Pulse Resp BP Pulse Ox 98 F 58 L 20 H 137/83 H 97 11/30/17 08:30 11/30/17 10:33 11/30/17 10:00 11/30/17 10:33 11/30/17 11:05 Oxygen Flow Rate (L/min) 3 Oxygen Delivery Method Nasal Cannula Weight: 58.1 kg Body Mass Index (BMI) 20.0 Intake and Output for Last 24 Hours 11/28/17 11/29/17 11/30/17 23:59 23:59 23:59 Intake Total 600 / 600 120 / 120 Output Total 0 / 0 Balance 600 / 600 120 / 120 Laboratory Tests Past 24 Hrs 11/30/17 11/30/17 11/30/17 06:42 06:42 06:42 WBC 14.7 H RBC 3.78 L Hgb 10.1 L Hct 33.2 L MCV 87.8 MCH 26.7 L MCHC 30.4 L RDW 17.2 H RDW Differential 55.3 H Plt Count 212 MPV 9.3 PT 14.8 INR 1.2 APTT 33.2 Sodium 133 L Potassium 4.7 Chloride 94 L Carbon Dioxide 30.0 Anion Gap 9 BUN 60 H Creatinine 8.89 H* Estim Creat Clear Calc 7.44 Est GFR (MDRD) Af Amer 8 L Est GFR (MDRD) Non-Af 7 L BUN/Creatinine Ratio 6.7 L Glucose 98 Calcium 7.5 L Medical Necessity - Tobacco Use Smoking Status: Former smoker Tobacco Use: Chew Assessment/Plan All Active Problems (Last Reviewed 11/05/17 @ 14:10 by Terence Gould MD) Problem with dialysis access (Acute) Lung nodule (Resolved) Ulcer of foot (Resolved) Patient is a 57-year-old male admitted 10/29/2017 due to worsening shortness of breath. Patient has a past medical history of chronic atrial fibrillation, chronic elevated troponin, chronic chest pain, COPD, chronic systolic CHF, cardiomyopathy, chronic hypoxic respiratory failure, end-stage renal disease on hemodialysis, hypertension, anemia of chronic disease, pulmonary hypertension, sick sinus syndrome status post dual chamber pacemaker/ICD. 1. Worsening shortness of breath/chronic pleural effusions-chest x-ray on admission with small bilateral pleural effusions, right greater than left. Findings similar to previous study 11/26/2017. Continue supplement oxygen to maintain O2 at or above 90%. Dr. Kunz consulted. Patient underwent right thoracentesis 11/29/17 with 1.25 L removed. Confirmed presence of transudate effusions secondary to underlying end-stage renal disease/chronic systolic CHF. Continue medical management/schedule dialysis. Patient can continue follow-up with pulmonary medicine as outpatient. 2. COPD/chronic hypoxic respiratory failure-chronically wears 2 L nasal cannula. At baseline. Wean oxygen as tolerated to maintain O2 at or above 90%. No signs of acute COPD exacerbation. Albuterol and DuoNeb aerosols. 3. Paroxysmal atrial fibrillation-Continue home amiodarone, metoprolol regimen. Hold Eliquis. Cardiology consulted. Patient converted to sinus bradycardia this morning. Continue current regimen. Resume Eliquis following fistula surgery when approved per Dr. Pierce. 4. Chronic chest pain/chronic elevated troponin-recent stress test 10/24/2017 without evidence of ischemia. LVEF 36%. 5. Chronic systolic CHF/cardiomyopathy/sick sinus syndrome-status post AICD removal secondary to MSSA bacteremia. Continue home lisinopril, metoprolol. 6. End-stage renal disease-on hemodialysis Saturday, Saturday, Saturday. Follows with Dr. Balbuena. Patient did not receive dialysis yesterday due to difficulty accessing fistula. Dr. Pierce consulted. Patient has an acutely thrombosed left upper extremity AV fistula. He is to undergo surgery for attempted salvage of left upper extremity fistula this afternoon. 7. Anemia of chronic disease-stable. 8. Hypertension-continue home lisinopril, metoprolol regimen. 9. GERD-continue home omeprazole regimen. DVT prophylaxis-therapeutic dose Lovenox subcu. Discharge planning: Pending AV fistula accessibility. This patient was seen by [facility] under the supervision of Dr. Victor. <Oniel Victor - Last Filed: 11/30/17 13:45> - Physical Exam Vital Signs Temp Pulse Resp BP Pulse Ox 98 F 58 L 20 H 137/83 H 97 11/30/17 08:30 11/30/17 10:33 11/30/17 10:00 11/30/17 10:33 11/30/17 11:05 Oxygen Flow Rate (L/min) 3 Oxygen Delivery Method Nasal Cannula Weight: 58.1 kg Body Mass Index (BMI) 20.0 Intake and Output for Last 24 Hours 11/28/17 11/29/17 11/30/17 23:59 23:59 23:59 Intake Total 600 / 600 120 / 120 Output Total 0 / 0 Balance 600 / 600 120 / 120 Laboratory Tests Past 24 Hrs 11/30/17 11/30/17 11/30/17 06:42 06:42 06:42 WBC 14.7 H RBC 3.78 L Hgb 10.1 L Hct 33.2 L MCV 87.8 MCH 26.7 L MCHC 30.4 L RDW 17.2 H RDW Differential 55.3 H Plt Count 212 MPV 9.3 PT 14.8 INR 1.2 APTT 33.2 Sodium 133 L Potassium 4.7 Chloride 94 L Carbon Dioxide 30.0 Anion Gap 9 BUN 60 H Creatinine 8.89 H* Estim Creat Clear Calc 7.44 Est GFR (MDRD) Af Amer 8 L Est GFR (MDRD) Non-Af 7 L BUN/Creatinine Ratio 6.7 L Glucose 98 Calcium 7.5 L Assessment/Plan This patient was seen in conjunction with [facility]. I have independently interviewed and examined the patient and reviewed pertinent historical, laboratory, and other data. Please refer to [facility] note for details of this patient's presentation, findings, and recommendations. I have reviewed [facility] note and concur with documented findings. In brief, patient is an 57 -year-old M with significant for end-stage renal disease on hemodialysis, paroxysmal A. fib chronic pleural effusion who presented with progressive shortness of breath 11/30/2017. Patient underwent Left upper extremity fistulogram with 8 x 2 conquest angioplasty and 8 x 2 cutting balloon angioplasty and 12 x 4 [place] angioplasty and Retavase AngioJet thrombolysis by Dr. Jamshid Pierce as a result of Acute thrombosis left upper extremity transposed basilic vein to brachial artery arteriovenous hemodialysis fistula with very high-grade venous stenosis and 2 areas of aneurysmal change on 11/30/2017. Physical Examination: GENERAL: Cooperative HEENT: Clear conjunctiva, NECK; supple, normal thyroid, CHEST: Diminished to auscultation bilaterally, HEART: Regular S1 S2, no audible murmurs ABDOMEN: soft, normoactive bowel sounds, BUCKET [employer]OOKER: Awake; no lateralizing signs. SKIN: No Rash Assessment: 1. Bilateral pleural effusion as well as right-sided thoracocentesis on 11/29/2017 2. Acute hypoxic respiratory failure secondary to COPD patient is on baseline home O2 3. Chronic systolic heart failure with ejection fraction of 36% 4. Cardiomyopathy status post AICD placement with subsequent removal as a result of MSSA bacteremia 5. End-stage renal disease on hemodialysis on Wednesdays and Fridays 6. Anemia secondary to anemia of chronic disorder 7. Hypertension 8. GERD 9.Acute thrombosis left upper extremity transposed basilic vein to brachial artery arteriovenous hemodialysis fistula with very high-grade venous stenosis and 2 areas of aneurysmal change Recommendations: 1. I have discussed the results of my overview and impressions with the patient 2. Options for management were reviewed Code Visit Inpatient E&M: 47792 Subs Hosp L3
--- NOTE | 2017-11-30 11:34 | PN_ITS ---
<Edith Lewis - Last Filed: 11/30/17 11:34> Patient Problems: Active and Suspected Problems (Last Reviewed 11/05/17 @ 14:10 by Terence Gould MD ) Problem with dialysis access (Acute) Subjective: Patient seen and examined. Drowsy this morning. States breathing is improved. Scheduled to undergo surgery this afternoon to attempt to salvage left upper extremity fistula with Dr. Pierce. Denies current complaints. - Physical Exam General: Alert, Oriented x3, Cooperative, No apparent distress HEENT: Atraumatic, PERRLA, EOMI, Normocephalic Oral: Dry Mucosa Neck: Supple, No JVD, Negative Carotid Bruits Lungs: Clear to auscultation, Diminished Cardiovascular: Regular rate, Regular Rhythm, Normal S1, Normal S2, No murmurs Abdomen: Bowel Sounds Present, Soft, Non Tender, Non-Distended Extremities: No clubbing, No cyanosis, No edema, Capillary Refill Less than 3 Seconds, - - Left upper extremity AV fistula with hematoma, scattered scabbing throughout secondary to patient picking. Skin: No rashes, No breakdown Musculoskeletal: No Tenderness to Palpation of Joints or Extremities Neurological: Cranial nerves II-XII grossly intact, Neuro grossly intact Psych/Mental Status: Normal Affect, Appropriate Vital Signs Temp Pulse Resp BP Pulse Ox 98 F 58 L 20 H 137/83 H 97 11/30/17 08:30 11/30/17 10:33 11/30/17 10:00 11/30/17 10:33 11/30/17 11:05 Oxygen Flow Rate (L/min) 3 Oxygen Delivery Method Nasal Cannula Weight: 58.1 kg Body Mass Index (BMI) 20.0 Intake and Output for Last 24 Hours 11/28/17 11/29/17 11/30/17 23:59 23:59 23:59 Intake Total 600 / 600 120 / 120 Output Total 0 / 0 Balance 600 / 600 120 / 120 Laboratory Tests Past 24 Hrs 11/30/17 11/30/17 11/30/17 06:42 06:42 06:42 WBC 14.7 H RBC 3.78 L Hgb 10.1 L Hct 33.2 L MCV 87.8 MCH 26.7 L MCHC 30.4 L RDW 17.2 H RDW Differential 55.3 H Plt Count 212 MPV 9.3 PT 14.8 INR 1.2 APTT 33.2 Sodium 133 L Potassium 4.7 Chloride 94 L Carbon Dioxide 30.0 Anion Gap 9 BUN 60 H Creatinine 8.89 H* Estim Creat Clear Calc 7.44 Est GFR (MDRD) Af Amer 8 L Est GFR (MDRD) Non-Af 7 L BUN/Creatinine Ratio 6.7 L Glucose 98 Calcium 7.5 L Medical Necessity - Tobacco Use Smoking Status: Former smoker Tobacco Use: Chew Assessment/Plan All Active Problems (Last Reviewed 11/05/17 @ 14:10 by Terence Gould MD) Problem with dialysis access (Acute) Lung nodule (Resolved) Ulcer of foot (Resolved) Patient is a 57-year-old male admitted 10/29/2017 due to worsening shortness of breath. Patient has a past medical history of chronic atrial fibrillation, chronic elevated troponin, chronic chest pain, COPD, chronic systolic CHF, cardiomyopathy, chronic hypoxic respiratory failure, end-stage renal disease on hemodialysis, hypertension, anemia of chronic disease, pulmonary hypertension, sick sinus syndrome status post dual chamber pacemaker/ICD. 1. Worsening shortness of breath/chronic pleural effusions-chest x-ray on admission with small bilateral pleural effusions, right greater than left. Findings similar to previous study 11/26/2017. Continue supplement oxygen to maintain O2 at or above 90%. Dr. Kunz consulted. Patient underwent right thoracentesis 11/29/17 with 1.25 L removed. Confirmed presence of transudate effusions secondary to underlying end-stage renal disease/chronic systolic CHF. Continue medical management/schedule dialysis. Patient can continue follow- up with pulmonary medicine as outpatient. 2. COPD/chronic hypoxic respiratory failure-chronically wears 2 L nasal cannula. At baseline. Wean oxygen as tolerated to maintain O2 at or above 90% . No signs of acute COPD exacerbation. Albuterol and DuoNeb aerosols. 3. Paroxysmal atrial fibrillation-Continue home amiodarone, metoprolol regimen. Hold Eliquis. Cardiology consulted. Patient converted to sinus bradycardia this morning. Continue current regimen. Resume Eliquis following fistula surgery when approved per Dr. Pierce. 4. Chronic chest pain/chronic elevated troponin-recent stress test 10/24/2017 without evidence of ischemia. LVEF 36%. 5. Chronic systolic CHF/cardiomyopathy/sick sinus syndrome-status post AICD removal secondary to MSSA bacteremia. Continue home lisinopril, metoprolol. 6. End-stage renal disease-on hemodialysis Saturday, Saturday, Saturday. Follows with Dr. Balbuena. Patient did not receive dialysis yesterday due to difficulty accessing fistula. Dr. Pierce consulted. Patient has an acutely thrombosed left upper extremity AV fistula. He is to undergo surgery for attempted salvage of left upper extremity fistula this afternoon. 7. Anemia of chronic disease-stable. 8. Hypertension-continue home lisinopril, metoprolol regimen. 9. GERD-continue home omeprazole regimen. DVT prophylaxis-therapeutic dose Lovenox subcu. Discharge planning: Pending AV fistula accessibility. This patient was seen by [facility] under the supervision of Dr. Victor. <Oniel Victor - Last Filed: 11/30/17 13:45> - Physical Exam Vital Signs Temp Pulse Resp BP Pulse Ox 98 F 58 L 20 H 137/83 H 97 11/30/17 08:30 11/30/17 10:33 11/30/17 10:00 11/30/17 10:33 11/30/17 11:05 Oxygen Flow Rate (L/min) 3 Oxygen Delivery Method Nasal Cannula Weight: 58.1 kg Body Mass Index (BMI) 20.0 Intake and Output for Last 24 Hours 11/28/17 11/29/17 11/30/17 23:59 23:59 23:59 Intake Total 600 / 600 120 / 120 Output Total 0 / 0 Balance 600 / 600 120 / 120 Laboratory Tests Past 24 Hrs 11/30/17 11/30/17 11/30/17 06:42 06:42 06:42 WBC 14.7 H RBC 3.78 L Hgb 10.1 L Hct 33.2 L MCV 87.8 MCH 26.7 L MCHC 30.4 L RDW 17.2 H RDW Differential 55.3 H Plt Count 212 MPV 9.3 PT 14.8 INR 1.2 APTT 33.2 Sodium 133 L Potassium 4.7 Chloride 94 L Carbon Dioxide 30.0 Anion Gap 9 BUN 60 H Creatinine 8.89 H* Estim Creat Clear Calc 7.44 Est GFR (MDRD) Af Amer 8 L Est GFR (MDRD) Non-Af 7 L BUN/Creatinine Ratio 6.7 L Glucose 98 Calcium 7.5 L Assessment/Plan This patient was seen in conjunction with [facility]. I have independently interviewed and examined the patient and reviewed pertinent historical, laboratory, and other data. Please refer to [facility] note for details of this patient's presentation, findings, and recommendations. I have reviewed [facility] note and concur with documented findings. In brief, patient is an 57 -year-old M with significant for end-stage renal disease on hemodialysis, paroxysmal A. fib chronic pleural effusion who presented with progressive shortness of breath 11/30/2017. Patient underwent Left upper extremity fistulogram with 8 x 2 conquest angioplasty and 8 x 2 cutting balloon angioplasty and 12 x 4 [place] angioplasty and Retavase AngioJet thrombolysis by Dr. Jamshid Pierce as a result of Acute thrombosis left upper extremity transposed basilic vein to brachial artery arteriovenous hemodialysis fistula with very high-grade venous stenosis and 2 areas of aneurysmal change on 11/30/2017. Physical Examination: GENERAL: Cooperative HEENT: Clear conjunctiva, NECK; supple, normal thyroid, CHEST: Diminished to auscultation bilaterally, HEART: Regular S1 S2, no audible murmurs ABDOMEN: soft, normoactive bowel sounds, S[employer]IOR [employer] PARTNER: Awake; no lateralizing signs. SKIN: No Rash Assessment: 1. Bilateral pleural effusion as well as right-sided thoracocentesis on 2017 2. Acute hypoxic respiratory failure secondary to COPD patient is on baseline home O2 3. Chronic systolic heart failure with ejection fraction of 36% 4. Cardiomyopathy status post AICD placement with subsequent removal as a result of MSSA bacteremia 5. End-stage renal disease on hemodialysis on Wednesdays and Fridays 6. Anemia secondary to anemia of chronic disorder 7. Hypertension 8. GERD 9.Acute thrombosis left upper extremity transposed basilic vein to brachial artery arteriovenous hemodialysis fistula with very high-grade venous stenosis and 2 areas of aneurysmal change Recommendations: 1. I have discussed the results of my overview and impressions with the patient 2. Options for management were reviewed Code Visit Inpatient E&M: 69634 Subs Hosp L3
--- NOTE | 2017-11-30 13:02 | OP.PCM_ITS ---
Problem List (1) Problem with dialysis access Status: Acute Qualifiers: Encounter type: initial encounter Qualified Code(s): T82.898A - Other specified complication of vascular prosthetic devices, implants and grafts, initial encounter Report of Operation Date of Procedure: 11/30/17 Pre-Operative Diagnosis: Acute thrombosis left upper extremity transposed basilic vein to brachial artery arteriovenous hemodialysis fistula Post-Operative Diagnosis: Acute thrombosis left upper extremity transposed basilic vein to brachial artery arteriovenous hemodialysis fistula with very high-grade venous stenosis and 2 areas of aneurysmal change Surgery/Procedure Performed:: Left upper extremity fistulogram with 8 x 2 conquest angioplasty and 8 x 2 cutting balloon angioplasty and 12 x 4 [place] angioplasty and Retavase AngioJet thrombolysis Description of Surgical Findings:: Timeout and informed consent was obtained. 57-year-old gentleman was taken to the special procedures lab. Medications given included 50 mcg of fentanyl and 1 mg of Versed and throughout the procedure he received in aliquots a total of 15 mg of hydralazine and 4 mg of Zofran The left upper extremity sterilely prepped draped. Ultrasound was used to identify the transposed basilic vein closer to the arterial anastomosis. 2% lidocaine was instilled. Micropuncture needle was inserted antegrade with flow. Micropuncture wire inserted. 6 Chinese Estrella data was inserted. Hand- injection with Isovue performed demonstrating thrombus within the fistula and lack of flow past the proximal upper arm. Using a 4 Chinese angled glide catheter and a 035 Glidewire was able to gain access past that into the central circulation demonstrating no evidence of any central stenosis. I then because of the thrombus visualized both on ultrasound and on imaging utilized 10 mg Retavase and 50 cc of saline and inserted a 6 Chinese AngioJet and performed power pulse spray of the proximal portion of the fistula. The patient did have nausea close to the completion of that was given the Zofran. His blood pressure was carefully monitored and in aliquots the hydralazine was used to control the blood pressures throughout this particular part of the but the seizure. Subsequently I performed from the lysis to approximately 70 cc of fluid. Again he became nauseated so that part of the procedure was completed. Hand-injection view demonstrated improvement in flow with now flow more centrally but there is area of high-grade 95% stenosis in the mid the proximal upper arm between 2 areas of aneurysmal change. This appears to be in areas where the fistula is accessed. Over an 035 angled Glidewire placed an 8 x 2 conquest balloon took it all the way up to 30 shani of pressure there was incomplete release. This was after multiple insufflations. I then placed an 8 x 2 cutting balloon and multiple inflation were performed up to burst pressure. Again hand-injection demonstrated minimal improvement. The cutting balloon was performed over a 018 SV 5 wire and I had up sheath to a 7 Chinese sheath. Subsequently then I replaced the angled Glidewire and placed a 12 x 4 [place] balloon and I took that eventually up to full pressure 18 shani. At the completion of that the area of very tight stenosis was felt to be in improved. There is felt to been improved to a degree to allow for functioning and dialysis through the fistula. Sheath was removed U suture of 4-0 nylon was placed he was in stable condition blood pressure much better controlled oxygenation had remained stable he was taken back to the progressive care unit. Because of the AngioJet thrombolysis I am recommending dialysis and that will be achieved today. Images demonstrate a transposed basilic vein to brachial artery left upper extremity AV fistula. There was thrombus noted in the proximal portion of the fistula but the arterial anastomotic inflow was patent. There is aneurysmal change in the mid to proximal upper arm with 2 locations and there is a very tight stenosis between these 2 locations. There appears to be adequate central venous outflow. Subsequent to the AngioJet and conquest balloon and cutting balloon and atlas balloon angioplasty there is now improvement in the area of stenosis though now with a lumen estimated to be approximately 5 mm. It is anticipated that the patient would likely benefit from future intervention. I personally did not feel comfortable attempting to place a Viabahn stent graft because of the significant aneurysmal change both proximal and distal to the fistula and the risk for embolization of the graft. I will be recommending tertiary level consultation for treatment options regarding his fistula possible surgical bypass of the fistula and his ongoing dialysis access needs. At this point believe that he will achieve dialysis through the fistula but is at greater risk for recurrent failure. Jamshid Pierce M.D., F.A.C.S. Type of Anesthesia:: IV Sedation
--- NOTE | 2017-11-30 13:22 | NURSING ---
1245 pt back from [employer], verbal report received from [employer] staff. antonio to lt arm d/alphonso Kemp RN
--- NOTE | 2017-11-30 13:23 | NURSING ---
1300 pt vs taken, bp elevated charge nurse aware, will monitor Charli Kemp RN
[2017-11-30] MEDS: oxyCODONE 5 MG Tablet PO ×2 (13:41→22:16)
[2017-11-30] MEDS: Magnesium Hydroxide 30 ML UDC PO (13:42)
--- NOTE | 2017-11-30 15:34 | PN.RENAL_ITS ---
Patient Problems: Active and Suspected Problems (Last Reviewed 11/05/17 @ 14:10 by Terence Gould MD ) Problem with dialysis access (Acute) Subjective: no new complaints - Physical Exam General: Alert, Oriented x3, Cooperative HEENT: Atraumatic, PERRLA, EOMI, Normocephalic Neck: Supple, No JVD, Negative Carotid Bruits Lungs: Clear to auscultation, Normal air movement Cardiovascular: Regular rate, No murmurs Abdomen: Bowel Sounds Present, Soft, Non Tender Extremities: No edema, Capillary Refill Less than 3 Seconds Skin: No rashes, No breakdown Musculoskeletal: No Tenderness to Palpation of Joints or Extremities Neurological: Cranial nerves II-XII grossly intact Psych/Mental Status: Normal Affect, Appropriate Vital Signs Temp Pulse Resp BP Pulse Ox 98 F 50 L 20 H 164/88 H 94 11/30/17 15:00 11/30/17 15:00 11/30/17 15:00 11/30/17 15:00 11/30/17 15:00 Oxygen Flow Rate (L/min) 3 Oxygen Delivery Method Nasal Cannula Weight: 58.1 kg Body Mass Index (BMI) 20.0 Intake and Output for Last 24 Hours 11/28/17 11/29/17 11/30/17 23:59 23:59 23:59 Intake Total 600 / 600 120 / 120 Output Total 0 / 0 Balance 600 / 600 120 / 120 Laboratory Tests Past 24 Hrs 11/30/17 11/30/17 11/30/17 06:42 06:42 06:42 WBC 14.7 H RBC 3.78 L Hgb 10.1 L Hct 33.2 L MCV 87.8 MCH 26.7 L MCHC 30.4 L RDW 17.2 H RDW Differential 55.3 H Plt Count 212 MPV 9.3 PT 14.8 INR 1.2 APTT 33.2 Sodium 133 L Potassium 4.7 Chloride 94 L Carbon Dioxide 30.0 Anion Gap 9 BUN 60 H Creatinine 8.89 H* Estim Creat Clear Calc 7.44 Est GFR (MDRD) Af Amer 8 L Est GFR (MDRD) Non-Af 7 L BUN/Creatinine Ratio 6.7 L Glucose 98 Calcium 7.5 L Medical Necessity - Tobacco Use Smoking Status: Former smoker Tobacco Use: Chew Assessment/Plan All Active Problems (Last Reviewed 11/05/17 @ 14:10 by Terence Gould MD) Problem with dialysis access (Acute) Lung nodule (Resolved) Ulcer of foot (Resolved) ESRD. HD today. Pleural effusions. s/p pleural tap Access dysfunction. s/p fistulogram by Dr Pierce this am. Discussed with him. I called dialysis staff to make sure he gets treatment today. They should be here by 4 pm.
[2017-11-30] MEDS: Heparin 10,000 UNITS/10 ML Vial 4000 UNITS IV (17:55)
--- NOTE | 2017-11-30 21:12 | DIALYSIS ---
HD X 3 HRS ON A 2K BATH. UF -1800ML TOLERATED WELL LUAF WORKED WELL WITH BFR 300. STASIS AT ARM POST TREATMENT. EPOGEN GIVEN AND HEPARIN DURING TREATMENT. REPORT TO VANNESA DUKES
[2017-11-30] MEDS: Calcium Acetate 667 MG Capsule PO (22:17)
[2017-11-30] MEDS: Nortriptyline 25 MG Capsule PO (22:18)
[2017-12-01] VITALS (8 sets, daily range): BP systolic 107–113; BP diastolic 74–87; PULSE 71–92; RESP 18; TEMP 36.4–36.5; O2SAT 92–99
--- NOTE | 2017-12-01 07:06 | PN.SURG_ITS ---
Patient Problems: Active and Suspected Problems (Last Reviewed 11/05/17 @ 14:10 by Terence Gould MD ) Problem with dialysis access (Acute) Subjective: Successful dialysis yesterday - Physical Exam Extremities: - - pulsitile left upper arm AV fistula Vital Signs Temp Pulse Resp BP Pulse Ox 97.5 F L 71 18 113/87 H 96 12/01/17 04:15 12/01/17 04:15 12/01/17 04:15 12/01/17 04:15 12/01/17 04:15 Oxygen Flow Rate (L/min) 4 Oxygen Delivery Method Nasal Cannula Weight: 128 lb 1.417 oz Body Mass Index (BMI) 20.0 Intake and Output for Last 24 Hours 11/29/17 11/30/17 12/01/17 23:59 23:59 23:59 Intake Total 600 / 600 360 / 360 Output Total 0 / 0 1800 / 1800 Balance 600 / 600 360 / 360 -1800 / -1800 Laboratory Tests Past 24 Hrs 11/30/17 11/30/17 11/30/17 06:42 06:42 06:42 WBC 14.7 H RBC 3.78 L Hgb 10.1 L Hct 33.2 L MCV 87.8 MCH 26.7 L MCHC 30.4 L RDW 17.2 H RDW Differential 55.3 H Plt Count 212 MPV 9.3 PT 14.8 INR 1.2 APTT 33.2 Sodium 133 L Potassium 4.7 Chloride 94 L Carbon Dioxide 30.0 Anion Gap 9 BUN 60 H Creatinine 8.89 H* Estim Creat Clear Calc 7.44 Est GFR (MDRD) Af Amer 8 L Est GFR (MDRD) Non-Af 7 L BUN/Creatinine Ratio 6.7 L Glucose 98 Calcium 7.5 L Medical Necessity - Tobacco Use Smoking Status: Former smoker Tobacco Use: Chew Assessment/Plan All Active Problems (Last Reviewed 11/05/17 @ 14:10 by Terence Gould MD) Problem with dialysis access (Acute) Lung nodule (Resolved) Ulcer of foot (Resolved) Despite very aggressive endovascular treatment yesterday a high grade stricture remains He will need future fistula revision I have asked him to make an outpt appt with me after discharge
[2017-12-01] MEDS: Amiodarone 200 MG Tablet PO (09:16)
[2017-12-01] MEDS: Metoprolol Tartrate 25 MG Tablet PO (09:16)
[2017-12-01] MEDS: Calcium Acetate 667 MG Capsule PO (09:16)
[2017-12-01] MEDS: Pantoprazole Sodium 20 MG Tablet PO (09:17)
[2017-12-01] MEDS: Folic Acid/Vitamin B Comp W-C 1 Capsule 1 CAP PO (09:17)
[2017-12-01] MEDS: Lisinopril 10 MG Tablet 20 MG PO (09:18)
[2017-12-01] MEDS: Cinacalcet HCl 30 MG Tablet PO (09:18)
--- NOTE | 2017-12-01 10:28 | PCM.DC ---
- Discharge Diagnoses Current Active Problems: Current Active and Chronic Problems (Last Reviewed 11/05/17 @ 14:10 by Terence Gould MD) Problem with dialysis access (Acute) You will use the following diet at home:: Renal (restricted protein/sodium) Discharge Activity: Return to Normal Activity Call your doctor if you observe: Shortness of breath, Dizziness, Chest pain, Increased palpitations (irregular heartbeat) Allergies/Adverse Reactions: Allergies onion Adverse Reaction (Severe, Verified 11/28/17 17:44) Unknown Medications to take at Discharge Acetaminophen [Tylenol] 1,000 mg PO Q4H PRN PRN 05/17/15 Calcium Acetate [Phoslo Gel Cap] 667 mg PO TIDCM 05/17/15 Cinacalcet HCl [Sensipar] 30 mg PO DAILY 09/08/15 Folic Acid/Vit Bcomp,C [Renal-Miguel Angel Tablet] 0.8 mg PO DAILY 05/22/17 metoprolol tartrate 25 mg tablet 25 mg PO BID 09/17/17 nitroglycerin 0.4 mg sublingual tablet 0.4 mg SUBLINGUAL Q5-15M PRN 09/17/17 Fluticasone 0.05% [Flonase Nasal [place]] 2 spray INTRANASAL DAILY PRN PRN 10/23/17 Lisinopril [Prinivil] 20 mg PO DAILY 10/23/17 Nortriptyline HCl [Pamelor] 25 mg PO QHS 10/23/17 omeprazole 20 mg capsule,delayed release 20 mg PO BID #60 cap 11/25/17 Apixaban [Eliquis] 2.5 mg PO BID 11/26/17 Albuterol Sulfate [Ventolin Hfa] 1 - 2 puff IH Q4H PRN PRN 11/28/17 Hydroxyzine Pamoate 50 mg PO TID PRN PRN 11/28/17 Amiodarone HCl [Cordarone] 200 mg PO DAILY tablet 12/01/17 Primary Care Physician: Conner Lopez MD [Primary Care Provider] - Please follow up with your Primary Care Physician in: 1 Week Test Results: Test results from this visit will be discussed in further detail at your follow-up appointment, if applicable. Please Follow Up With: Reinaldo Lind MD When: As scheduled, attend normal dialysis schedule tomorrow Please Follow Up With: Jamshid Pierce MD When: Call saturday to schedule Please Follow Up With: Anaya Abarca NP-C When: As scheduled Please Follow Up With: Daisy Carvalho PA When: As scheduled Proposed Discharge Date: 12/01/17
--- NOTE | 2017-12-01 10:34 | DCINST_ITS ---
- Discharge Diagnoses Current Active Problems: Current Active and Chronic Problems (Last Reviewed 11/05/17 @ 14:10 by Terence Gould MD) Problem with dialysis access (Acute) You will use the following diet at home:: Renal (restricted protein/sodium) Discharge Activity: Return to Normal Activity Call your doctor if you observe: Shortness of breath, Dizziness, Chest pain, Increased palpitations (irregular heartbeat) Allergies/Adverse Reactions: Allergies onion Adverse Reaction (Severe, Verified 11/28/17 17:44) Unknown Medications to take at Discharge Acetaminophen [Tylenol] 1,000 mg PO Q4H PRN PRN 05/17/15 Calcium Acetate [Phoslo Gel Cap] 667 mg PO TIDCM 05/17/15 Cinacalcet HCl [Sensipar] 30 mg PO DAILY 09/08/15 Folic Acid/Vit Bcomp,C [Renal-Miguel Angel Tablet] 0.8 mg PO DAILY 05/22/17 metoprolol tartrate 25 mg tablet 25 mg PO BID 09/17/17 nitroglycerin 0.4 mg sublingual tablet 0.4 mg SUBLINGUAL Q5-15M PRN 09/17/17 Fluticasone 0.05% [Flonase Nasal [place]] 2 spray INTRANASAL DAILY PRN PRN Lisinopril [Prinivil] 20 mg PO DAILY 10/23/17 Nortriptyline HCl [Pamelor] 25 mg PO QHS 10/23/17 omeprazole 20 mg capsule,delayed release 20 mg PO BID #60 cap 11/25/17 Apixaban [Eliquis] 2.5 mg PO BID 11/26/17 Albuterol Sulfate [Ventolin Hfa] 1 - 2 puff IH Q4H PRN PRN 11/28/17 Hydroxyzine Pamoate 50 mg PO TID PRN PRN 11/28/17 Amiodarone HCl [Cordarone] 200 mg PO DAILY tablet 12/01/17 Primary Care Physician: Conner Lopez MD [Primary Care Provider] - Please follow up with your Primary Care Physician in: 1 Week Test Results: Test results from this visit will be discussed in further detail at your follow- up appointment, if applicable. Please Follow Up With: Reinaldo Lind MD When: As scheduled, attend normal dialysis schedule tomorrow Please Follow Up With: Jamshid Pierce MD When: Call saturday to schedule Please Follow Up With: Anaya Abarca NP-C When: As scheduled Please Follow Up With: Daisy Carvalho PA When: As scheduled Proposed Discharge Date: 12/01/17
--- NOTE | 2017-12-01 10:34 | PCM.DC.SUM ---
<Edith Lewis - Last Filed: 12/01/17 10:45> Discharge Date and Diagnosis Date of Admission: 11/28/17 Date of Discharge: 12/01/17 - Primary Discharge Diagnosis Active and Suspected Problems (Last Reviewed 11/05/17 @ 14:10 by Terence Gould MD) 1. Acute hypoxia on chronic hypoxic respiratory failure secondary to end-stage renal disease/chronic systolic CHF 2. Chronic pleural effusions-status post right thoracentesis 3. End-stage renal disease-status post left upper extremity fistulogram - Secondary Discharge Diagnosis Chronic Problems (Last Reviewed 11/05/17 @ 14:10 by Terence Gould MD) ICD extraction (Chronic) MSSA Bacteremia 08/2017 @[facility] Atrial fibrillation (Chronic) 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 (Chronic) Elevated troponin (Chronic) not trending Mitral insufficiency (Chronic) Implantable cardioverter-defibrillator (ICD) in situ (Chronic) implanted in 12/07/2015 at [facility] Sick sinus syndrome (Chronic) S/P dual-chamber Pacemaker/ICD ESRD (end stage renal disease) (Chronic) on HD HTN (hypertension) (Chronic) Pulmonary HTN (Chronic) Anemia with chronic illness (Chronic) ESRD Non-compliance (Chronic) non-compliant with meds and with dialysis Non-compliance with renal dialysis (Chronic) Respiratory failure with hypoxia (Chronic) Bilateral pleural effusion (Chronic) Cardiomyopathy (Chronic) CHF (congestive heart failure) (Chronic) EF 30% Coronary artery arteriosclerosis (Chronic) 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 Electronically Signed: Michel Bustillo MD at 12:00 EDT Tel [phone], Service support , Chest X-Ray 11/29/17 11:01 IMPRESSION: Status post right thoracentesis. There is no evidence of a pneumothorax. Electronically Signed: Michel Bustillo MD at 13:01 EDT Tel [phone], Service support , Dr. Gould- Cardiology Dr. Mejia- Nephrology Dr. Kunz- Pulmonary Dr. Pierce- General surgery Operations: None Procedures: - - Left upper extremity fistulogram Summary of Care Provided: Patient is a 57-year-old male admitted 10/29/2017 due to worsening shortness of breath. Patient has a past medical history of chronic atrial fibrillation, chronic elevated troponin, chronic chest pain, COPD, chronic systolic CHF, cardiomyopathy, chronic hypoxic respiratory failure, end-stage renal disease on hemodialysis, hypertension, anemia of chronic disease, pulmonary hypertension, sick sinus syndrome status post dual chamber pacemaker/ICD. 1. Acute hypoxia on chronic hypoxic respiratory failure/chronic pleural effusions-chest x-ray on admission with small bilateral pleural effusions, right greater than left. Findings similar to previous study 11/26/2017. Continue supplement oxygen to maintain O2 at or above 90%. Dr. Kunz consulted. Patient underwent right thoracentesis 11/29/17 with 1.25 L removed. Confirmed presence of transudate effusions secondary to underlying end-stage renal disease/chronic systolic CHF. Continue medical management/schedule dialysis. Patient can continue follow-up with pulmonary medicine as outpatient as scheduled. 2. COPD/chronic hypoxic respiratory failure-chronically wears 2 L nasal cannula. At baseline. Wean oxygen as tolerated to maintain O2 at or above 90%. No signs of acute COPD exacerbation. 3. Paroxysmal atrial fibrillation-Continue home amiodarone, metoprolol, Eliquis regimen. Cardiology consulted. Patient converted to sinus bradycardia this morning. Patient's home amiodarone was reduced to 200 mg daily. Follow-up with cardiology as outpatient as scheduled. 4. Chronic chest pain/chronic elevated troponin-recent stress test 10/24/2017 without evidence of ischemia. LVEF 36%. 5. Chronic systolic CHF/cardiomyopathy/sick sinus syndrome-status post AICD removal secondary to MSSA bacteremia. Continue home lisinopril, metoprolol. 6. End-stage renal disease-on hemodialysis Saturday, Saturday, Saturday. Follows with Dr. Balbuena. Dr. Pierce consulted due to acute thrombosis left upper extremity hemodialysis fistula. Patient underwent left upper extremity fistulogram 11/30/2017. He underwent dialysis treatment afterwards. He will continue outpatient dialysis as scheduled. 7. Anemia of chronic disease-stable. 8. Hypertension-continue home lisinopril, metoprolol regimen. 9. GERD-continue home omeprazole regimen. General: Alert, Oriented x3, Cooperative, No apparent distress HEENT: Atraumatic, PERRLA, EOMI, Normocephalic Oral: Dry Mucosa Neck: Supple, No JVD, Negative Carotid Bruits Lungs: Clear to auscultation, Diminished Cardiovascular: Regular rate, Regular Rhythm, Normal S1, Normal S2, No murmurs Abdomen: Bowel Sounds Present, Soft, Non Tender, Non-Distended Extremities: No clubbing, No cyanosis, No edema, Capillary Refill Less than 3 Seconds, - - Left upper extremity AV fistula with hematoma, scattered scabbing throughout secondary to patient picking. Skin: No rashes, No breakdown Musculoskeletal: No Tenderness to Palpation of Joints or Extremities Neurological: Cranial nerves II-XII grossly intact, Neuro grossly intact Psych/Mental Status: Normal Affect, Appropriate Patient seen and examined prior to discharge. Physical assessment as noted above. Patient is stable for discharge home with a follow-up recommendation is as noted above. This patient was seen by [facility] under the supervision of Dr. Victor. Discharge Diet: Renal Diet Discharge Activity: Return to Normal Activity Call your doctor if you observe: Shortness of breath, Dizziness, Chest pain, Increased palpitations (irregular heartbeat) Home Medications: Medications to take at Discharge Acetaminophen [Tylenol] 1,000 mg PO Q4H PRN PRN 05/17/15 Calcium Acetate [Phoslo Gel Cap] 667 mg PO TIDCM 05/17/15 Cinacalcet HCl [Sensipar] 30 mg PO DAILY 09/08/15 Folic Acid/Vit Bcomp,C [Renal-Miguel Angel Tablet] 0.8 mg PO DAILY 05/22/17 metoprolol tartrate 25 mg tablet 25 mg PO BID 09/17/17 nitroglycerin 0.4 mg sublingual tablet 0.4 mg SUBLINGUAL Q5-15M PRN 09/17/17 Fluticasone 0.05% [Flonase Nasal [place]] 2 spray INTRANASAL DAILY PRN PRN 10/23/17 Lisinopril [Prinivil] 20 mg PO DAILY 10/23/17 Nortriptyline HCl [Pamelor] 25 mg PO QHS 10/23/17 omeprazole 20 mg capsule,delayed release 20 mg PO BID #60 cap 11/25/17 Apixaban [Eliquis] 2.5 mg PO BID 11/26/17 Albuterol Sulfate [Ventolin Hfa] 1 - 2 puff IH Q4H PRN PRN 11/28/17 Hydroxyzine Pamoate 50 mg PO TID PRN PRN 11/28/17 Amiodarone HCl [Cordarone] 200 mg PO DAILY tablet 12/01/17 Primary Care Physician: Conner Lopze MD [Primary Care Provider] - Please follow up with your Primary Care Physician in: 1 Week Please Follow Up With: Reinaldo Lind MD When: As scheduled, attend normal dialysis schedule tomorrow Please Follow Up With: Jamshid Pierce MD When: Call saturday to schedule Please Follow Up With: Anaya Abarca NP-C When: As scheduled Please Follow Up With: Daisy Carvalho PA When: As scheduled Disposition: Home Minutes spent on discharge:: 35 Patient Condition:: Stable Medical Necessity - Tobacco Use Smoking Status: Former smoker Tobacco Use: Chew Meaningful Use Info Meaningful Use Diagnoses (Choose all that apply): None applicable <Oniel Victor - Last Filed: 12/01/17 11:46> Discharge Date and Diagnosis - Secondary Discharge Diagnosis Chronic Problems (Last Reviewed 11/05/17 @ 14:10 by Terence Gould MD) ICD extraction (Chronic) MSSA Bacteremia 08/2017 @[facility] Atrial fibrillation (Chronic) 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 (Chronic) Elevated troponin (Chronic) not trending Mitral insufficiency (Chronic) Implantable cardioverter-defibrillator (ICD) in situ (Chronic) implanted in 12/07/2015 at [facility] Sick sinus syndrome (Chronic) S/P dual-chamber Pacemaker/ICD ESRD (end stage renal disease) (Chronic) on HD HTN (hypertension) (Chronic) Pulmonary HTN (Chronic) Anemia with chronic illness (Chronic) ESRD Non-compliance (Chronic) non-compliant with meds and with dialysis Non-compliance with renal dialysis (Chronic) Respiratory failure with hypoxia (Chronic) Bilateral pleural effusion (Chronic) Cardiomyopathy (Chronic) CHF (congestive heart failure) (Chronic) EF 30% Coronary artery arteriosclerosis (Chronic) 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 I have independently interviewed and examined the patient and reviewed pertinent historical, laboratory, and other data. Please refer to [facility] note for details of this patient's presentation, findings, and recommendations. I have reviewed [facility] note and concur with documented findings. In brief, patient is an 57 -year-old M with significant for end-stage renal disease on hemodialysis, paroxysmal A. fib chronic pleural effusion who presented with progressive shortness of breath Patient underwent Left upper extremity fistulogram with 8 x 2 conquest angioplasty and 8 x 2 cutting balloon angioplasty and 12 x 4 [place] angioplasty and Retavase AngioJet thrombolysis by Dr. Jamshid Pierce as a result of Acute thrombosis left upper extremity transposed basilic vein to brachial artery arteriovenous hemodialysis fistula with very high-grade venous stenosis and 2 areas of aneurysmal change on 11/30/2017. Assessment: 1. Bilateral pleural effusion as well as right-sided thoracocentesis on 11/29/2017 2. Acute hypoxic respiratory failure secondary to COPD patient is on baseline home O2 3. Chronic systolic heart failure with ejection fraction of 36% 4. Cardiomyopathy status post AICD placement with subsequent removal as a result of MSSA bacteremia 5. End-stage renal disease on hemodialysis on Wednesdays and Fridays 6. Anemia secondary to anemia of chronic disorder 7. Hypertension 8. GERD 9. Acute thrombosis left upper extremity transposed basilic vein to brachial artery arteriovenous hemodialysis fistula with very high-grade venous stenosis and 2 areas of aneurysmal change Hospital course: As elicited above by Edith Lewis NPC Total time spent on discharge 45 minutes Code Visit Inpatient E&M: 21558 Disch Hosp
--- NOTE | 2017-12-01 10:45 | DS.PCM_ITS ---
<Edith Lewis - Last Filed: 12/01/17 10:45> Discharge Date and Diagnosis Date of Admission: 11/28/17 Date of Discharge: 12/01/17 - Primary Discharge Diagnosis Active and Suspected Problems (Last Reviewed 11/05/17 @ 14:10 by Terence Gould MD ) 1. Acute hypoxia on chronic hypoxic respiratory failure secondary to end-stage renal disease/chronic systolic CHF 2. Chronic pleural effusions-status post right thoracentesis 3. End-stage renal disease-status post left upper extremity fistulogram - Secondary Discharge Diagnosis Chronic Problems (Last Reviewed 11/05/17 @ 14:10 by Terence Gould MD) ICD extraction (Chronic) MSSA Bacteremia 08/2017 @[facility] Atrial fibrillation (Chronic) [facility] current use of anticoagulant (Chronic) Elevated troponin (Chronic) not trending Mitral insufficiency (Chronic) Implantable cardioverter-defibrillator (ICD) in situ (Chronic) implanted in 12/07/2015 at [facility] Sick sinus syndrome (Chronic) S/P dual-chamber Pacemaker/ICD ESRD (end stage renal disease) (Chronic) on HD HTN (hypertension) (Chronic) Pulmonary HTN (Chronic) Anemia with chronic illness (Chronic) ESRD Non-compliance (Chronic) non-compliant with meds and with dialysis Non-compliance with renal dialysis (Chronic) Respiratory failure with hypoxia (Chronic) Bilateral pleural effusion (Chronic) Cardiomyopathy (Chronic) CHF (congestive heart failure) (Chronic) EF 30% Coronary artery arteriosclerosis (Chronic) 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 Electronically Signed: Michel Bustillo MD at 12:00 EDT Tel [phone], Service support , Chest X-Ray 11/29/17 11:01 IMPRESSION: Status post right thoracentesis. There is no evidence of a pneumothorax. Electronically Signed: Michel Bustillo MD at 13:01 EDT Tel [phone], Service support , Dr. Gould- Cardiology Dr. Mejia- Nephrology Dr. Kunz- Pulmonary Dr. Pierce- General surgery Operations: None Procedures: - - Left upper extremity fistulogram Summary of Care Provided: Patient is a 57-year-old male admitted 10/29/2017 due to worsening shortness of breath. Patient has a past medical history of chronic atrial fibrillation, chronic elevated troponin, chronic chest pain, COPD, chronic systolic CHF, cardiomyopathy, chronic hypoxic respiratory failure, end-stage renal disease on hemodialysis, hypertension, anemia of chronic disease, pulmonary hypertension, sick sinus syndrome status post dual chamber pacemaker/ICD. 1. Acute hypoxia on chronic hypoxic respiratory failure/chronic pleural effusions-chest x-ray on admission with small bilateral pleural effusions, right greater than left. Findings similar to previous study 11/26/2017. Continue supplement oxygen to maintain O2 at or above 90%. Dr. Kunz consulted. Patient underwent right thoracentesis 11/29/17 with 1.25 L removed. Confirmed presence of transudate effusions secondary to underlying end-stage renal disease/chronic systolic CHF. Continue medical management/schedule dialysis. Patient can continue follow-up with pulmonary medicine as outpatient as scheduled. 2. COPD/chronic hypoxic respiratory failure-chronically wears 2 L nasal cannula. At baseline. Wean oxygen as tolerated to maintain O2 at or above 90% . No signs of acute COPD exacerbation. 3. Paroxysmal atrial fibrillation-Continue home amiodarone, metoprolol, Eliquis regimen. Cardiology consulted. Patient converted to sinus bradycardia this morning. Patient's home amiodarone was reduced to 200 mg daily. Follow- up with cardiology as outpatient as scheduled. 4. Chronic chest pain/chronic elevated troponin-recent stress test 10/24/2017 without evidence of ischemia. LVEF 36%. 5. Chronic systolic CHF/cardiomyopathy/sick sinus syndrome-status post AICD removal secondary to MSSA bacteremia. Continue home lisinopril, metoprolol. 6. End-stage renal disease-on hemodialysis Saturday, Saturday, Saturday. Follows with Dr. Balbuena. Dr. Pierce consulted due to acute thrombosis left upper extremity hemodialysis fistula. Patient underwent left upper extremity fistulogram 2017. He underwent dialysis treatment afterwards. He will continue outpatient dialysis as scheduled. 7. Anemia of chronic disease-stable. 8. Hypertension-continue home lisinopril, metoprolol regimen. 9. GERD-continue home omeprazole regimen. General: Alert, Oriented x3, Cooperative, No apparent distress HEENT: Atraumatic, PERRLA, EOMI, Normocephalic Oral: Dry Mucosa Neck: Supple, No JVD, Negative Carotid Bruits Lungs: Clear to auscultation, Diminished Cardiovascular: Regular rate, Regular Rhythm, Normal S1, Normal S2, No murmurs Abdomen: Bowel Sounds Present, Soft, Non Tender, Non-Distended Extremities: No clubbing, No cyanosis, No edema, Capillary Refill Less than 3 Seconds, - - Left upper extremity AV fistula with hematoma, scattered scabbing throughout secondary to patient picking. Skin: No rashes, No breakdown Musculoskeletal: No Tenderness to Palpation of Joints or Extremities Neurological: Cranial nerves II-XII grossly intact, Neuro grossly intact Psych/Mental Status: Normal Affect, Appropriate Patient seen and examined prior to discharge. Physical assessment as noted above. Patient is stable for discharge home with a follow-up recommendation is as noted above. This patient was seen by BIANCA Madrid under the supervision of Dr. Victor. Discharge Diet: Renal Diet Discharge Activity: Return to Normal Activity Call your doctor if you observe: Shortness of breath, Dizziness, Chest pain, Increased palpitations (irregular heartbeat) Home Medications: Medications to take at Discharge Acetaminophen [Tylenol] 1,000 mg PO Q4H PRN PRN 05/17/15 Calcium Acetate [Phoslo Gel Cap] 667 mg PO TIDCM 05/17/15 Cinacalcet HCl [Sensipar] 30 mg PO DAILY 09/08/15 Folic Acid/Vit Bcomp,C [Renal-Miguel Angel Tablet] 0.8 mg PO DAILY 05/22/17 metoprolol tartrate 25 mg tablet 25 mg PO BID 09/17/17 nitroglycerin 0.4 mg sublingual tablet 0.4 mg SUBLINGUAL Q5-15M PRN 09/17/17 Fluticasone 0.05% [Flonase Nasal [place]] 2 spray INTRANASAL DAILY PRN PRN Lisinopril [Prinivil] 20 mg PO DAILY 10/23/17 Nortriptyline HCl [Pamelor] 25 mg PO QHS 10/23/17 omeprazole 20 mg capsule,delayed release 20 mg PO BID #60 cap 11/25/17 Apixaban [Eliquis] 2.5 mg PO BID 11/26/17 Albuterol Sulfate [Ventolin Hfa] 1 - 2 puff IH Q4H PRN PRN 11/28/17 Hydroxyzine Pamoate 50 mg PO TID PRN PRN 11/28/17 Amiodarone HCl [Cordarone] 200 mg PO DAILY tablet 12/01/17 Primary Care Physician: Conner Lopez MD [Primary Care Provider] - Please follow up with your Primary Care Physician in: 1 Week Please Follow Up With: Reinaldo Lind MD When: As scheduled, attend normal dialysis schedule tomorrow Please Follow Up With: Jamshid Pierce MD When: Call saturday to schedule Please Follow Up With: Anaya Abarca NP-C When: As scheduled Please Follow Up With: Daisy Carvalho PA When: As scheduled Disposition: Home Minutes spent on discharge:: 35 Patient Condition:: Stable Medical Necessity - Tobacco Use Smoking Status: Former smoker Tobacco Use: Chew Meaningful Use Info Meaningful Use Diagnoses (Choose all that apply): None applicable <Oniel Victor - Last Filed: 12/01/17 11:46> Discharge Date and Diagnosis - Secondary Discharge Diagnosis Chronic Problems (Last Reviewed 11/05/17 @ 14:10 by Terence Gould MD) ICD extraction (Chronic) MSSA Bacteremia 08/2017 @[facility] Atrial fibrillation (Chronic) [employer] current use of anticoagulant (Chronic) Elevated troponin (Chronic) not trending Mitral insufficiency (Chronic) Implantable cardioverter-defibrillator (ICD) in situ (Chronic) implanted in 12/07/2015 at [facility] Sick sinus syndrome (Chronic) S/P dual-chamber Pacemaker/ICD ESRD (end stage renal disease) (Chronic) on HD HTN (hypertension) (Chronic) Pulmonary HTN (Chronic) Anemia with chronic illness (Chronic) ESRD Non-compliance (Chronic) non-compliant with meds and with dialysis Non-compliance with renal dialysis (Chronic) Respiratory failure with hypoxia (Chronic) Bilateral pleural effusion (Chronic) Cardiomyopathy (Chronic) CHF (congestive heart failure) (Chronic) EF 30% Coronary artery arteriosclerosis (Chronic) 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 I have independently interviewed and examined the patient and reviewed pertinent historical, laboratory, and other data. Please refer to [facility] note for details of this patient's presentation, findings, and recommendations. I have reviewed [facility] note and concur with documented findings. In brief, patient is an 57 -year-old M with significant for end-stage renal disease on hemodialysis, paroxysmal A. fib chronic pleural effusion who presented with progressive shortness of breath Patient underwent Left upper extremity fistulogram with 8 x 2 conquest angioplasty and 8 x 2 cutting balloon angioplasty and 12 x 4 [place] angioplasty and Retavase AngioJet thrombolysis by Dr. Jamshid Pierce as a result of Acute thrombosis left upper extremity transposed basilic vein to brachial artery arteriovenous hemodialysis fistula with very high-grade venous stenosis and 2 areas of aneurysmal change on 2017. Assessment: 1. Bilateral pleural effusion as well as right-sided thoracocentesis on 2017 2. Acute hypoxic respiratory failure secondary to COPD patient is on baseline home O2 3. Chronic systolic heart failure with ejection fraction of 36% 4. Cardiomyopathy status post AICD placement with subsequent removal as a result of MSSA bacteremia 5. End-stage renal disease on hemodialysis on Wednesdays and Fridays 6. Anemia secondary to anemia of chronic disorder 7. Hypertension 8. GERD 9. Acute thrombosis left upper extremity transposed basilic vein to brachial artery arteriovenous hemodialysis fistula with very high-grade venous stenosis and 2 areas of aneurysmal change Hospital course: As elicited above by Edith Lewis NPC Total time spent on discharge 45 minutes Code Visit Inpatient E&M: 26944 Disch Hosp
--- NOTE | 2017-12-04 08:38 | CASEMGMT ---
ERNST [place] Discharge Follow-up Phone Call: TORREY: Mariana Strata: 4 Call Date: 12/02/17 Discharge Date: 12/01/17 Time of Call: 1145 Duration: 3 minutes ERNST [place] spoke with patient regarding the patients status post discharge. The patient reported doing well except for feeling easily fatigued which he stated was not new. The patient reported no difficulty attending dialysis yesterday and that they did not have any difficulty with his fistula. He had a follow-up appointment with Dr. Pierce this afternoon at 3:15. He denied any questions regarding his discharge instructions or medications. Hudson Bales RN
== END 2017-12-01 13:28 | disposition home or self-care (01) | DRG 166 ==
LOC: ED 18:15 → PCU 19:12
PROVIDERS: Nurse Practitioner Family; Surgery; Admitting Provider Hospitalist; Emergency Provider Emergency Medicine; Family Provider Family Medicine; PCP Family Medicine; Visit Provider Internal Medicine
DX: J96.21 Acute and chronic respiratory failure with hypoxia (principal); N18.6 End stage renal disease; I42.9 Cardiomyopathy, unspecified; I13.2 Hypertensive heart and chronic kidney disease with heart failure and with stage 5 chronic kidney disease, or end stage renal disease; T82.868A Thrombosis due to vascular prosthetic devices, implants and grafts, initial encounter; J91.8 Pleural effusion in other conditions classified elsewhere; I50.22 Chronic systolic (congestive) heart failure; T82.898A Other specified complication of vascular prosthetic devices, implants and grafts, initial encounter; T82.858A Stenosis of other vascular prosthetic devices, implants and grafts, initial encounter; D68.9 Coagulation defect, unspecified; Z99.2 Dependence on renal dialysis; Z99.81 Dependence on supplemental oxygen; I48.2 Chronic atrial fibrillation; I25.10 Atherosclerotic heart disease of native coronary artery without angina pectoris; Z90.5 Acquired absence of kidney; Z85.528 Personal history of other malignant neoplasm of kidney; D63.8 Anemia in other chronic diseases classified elsewhere; I27.20 Pulmonary hypertension, unspecified; J44.9 Chronic obstructive pulmonary disease, unspecified; K21.9 Gastro-esophageal reflux disease without esophagitis; Z87.891 Personal history of nicotine dependence; I48.0 Paroxysmal atrial fibrillation; Z95.5 Presence of coronary angioplasty implant and graft; E21.5 Disorder of parathyroid gland, unspecified; I25.2 Old myocardial infarction; Z95.810 Presence of automatic (implantable) cardiac defibrillator; Z79.01 Long term (current) use of anticoagulants; Z79.899 Other long term (current) drug therapy
CPT/HCPCS: 32555; 36415; 36905; 71045; 71046; 76937; 80048; 84484; 85025; 85027; 85610; 85730; 90937; 93005; 94640; 99152; 99153; 99284; 99285; J0885; J2997; J7040; Q9967; A4216; C1725; C1757; C1769; C1894; G0257; J2405

== ENCOUNTER 2017-12-09 14:14 | Emergency (ER) | payer MEDICARE, MEDICAID, SELFPAY ==
[2017-12-09] VITALS (15 sets, daily range): BP systolic 75–131; BP diastolic 28–80; PULSE 47–69; RESP 14–22; TEMP 36.3; O2SAT 92–100; BMI 21.7
[2017-12-09] MEDS: Ondansetron 4 MG/2 ML Vial IM (14:15)
--- NOTE | 2017-12-09 14:17 | ED.RN ---
Addendum entered by Gardenia Stacy 12/09/17 15:17: strong radial pulses Original Note: Addendum entered by Gardenia Stacy 12/09/17 15:16: strong pedal pulses. Original Note: arrived with uncontrolled bleeding. pt verably responding pale, nausea. diaphoretic. bleeding pressure held and controlled and iv line being attempted. 1405 im zofran for nausea
[2017-12-09 14:43] LABS: Absolute Lymphocyte Count 2.87 X10^3/ul (0.83-4.51); Absolute Neutrophil Count 16.5 X10^3/uL (2.0-7.7); Basophil# 0.19 X10^3/uL; Basophil% 0.8 % (0-1); Eosinophils% 9.5 % (0-5); Hemoglobin 8.5 g/dl (13.0-16.5); Lymphocyte # 2.87 X10^3/ul (4.0); Lymphocyte % 12.3 % (19-41); Mean Corp Hgb Conc 30.4 g/gl (32-36); Mean Corpuscular Hgb 26.3 pg (27.0-32.0); Mean Corpuscular Volume 86.7 fL (80-94); Monocyte# 1.61 X10^3/uL; Monocyte% 6.9 % (0-10); Neutrophil # 16.45 X10^3/uL (2.7-7.7); Neutrophil % 70.3 % (47-70); Platelet Count 241 K/mm3 (150-450); RBC Distribution Width CV 17.2 % (11.6-14.6); RBC Distribution Width SD 54.6 fl (35.1-43.9); Red Blood Count 3.23 M/mm3 (4.6-6.2); White Blood Count 23.4 K/mm3 (4.4-11.0)
[2017-12-09 14:44] LABS: Differential Indicated SCAN CRITERIA MET; Eosinophil# 2.23 X10^3/uL; POSITIVE COUNT NO; POSITIVE DIFFERENTIAL YES; POSITIVE MORPHOLOGY NO
[2017-12-09 14:47] LABS: International Normalized Ratio 1.4; Prothrombin Time (Protime)PT. 16.8 SECONDS (11.7-14.9)
[2017-12-09 14:48] LABS: Partial Thromboplast Time 64.2 Seconds (24.1-36.2)
[2017-12-09 14:51] LABS: Anion Gap 11 (5-15); BUN 61 mg/dL (7-18); BUN/Creat Ratio 7.8 RATIO (10-20); Calcium,Total 8.3 mg/dL (8.5-10.1); Chloride 95 mmol/L (98-107); Creatinine, Serum 7.81 mg/dL (0.70-1.30); EST Glomerular Filtration Rate 8 mL/min (>60); Est Glom Filt Rate - Afr Amer 9 mL/min (>60); Estimated Creatinine Clearance 8.63 ml/min; Glucose 102 mg/dL (74-106); Potassium 5.5 mmol/L (3.5-5.1); Sodium Level 134 mmol/L (136-145)
--- NOTE | 2017-12-09 14:51 | ED.RN ---
LAB CALLED WITH CRITICAL RESULT. CREATININE OF 7.81, DR. VILLEGAS NOTIFIED, NO ORDERS GIVEN
--- NOTE | 2017-12-09 15:03 | ED.RN ---
1445- severe pain to arm. hand numb and cool. bp dropped with fluids clamped after 500cc bolus. strong radial pulse. dr newby notified and fluids opened to gravit infusion. dr newby at bedside with gel foam and pressure dressing removed turnicot.
--- NOTE | 2017-12-09 15:55 | ED.VISSUMM ---
- ER Visit Summary Date of Service: 12/09/17 Chief Complaint: Bleeding fistula site History of Present Illness: The patient is a 57 M bleeding from his left upper extremity fistula site during dialysis today. He had a procedure done by Dr. Pierce on November 30 for thrombus in his fistula. He was seen in the office on the to discuss possible revision. Per those notes this fistula could continue to be used for a very short time period. He is looking at either revising current fistula or placing a different site. At dialysis today patient started bleeding and was very difficult to control. Paramedics placed a Tourniquet on his arm. Systolic blood pressures in the 70s for squad in route. Physical Examination: Blood pressure initially 87/49, heart rate 57. Patient is lying supine in the bed. He appears pale. Heart is irregular and slightly bradycardic. Lung sounds are grossly clear. Abdomen is soft nontender. Left upper extremity examination was a tourniquet in place. Dressing is taken down and there is a single site of bleeding currently noted. Pressure is held with gauze pads. There is a second sites that has a fresh scab. Test Results: CBC was a white count 23.4. Hemoglobin is 8.5. This is compared with hemoglobin of 10.1 on November 30. Chemistry studies are significant for BUN of 61 and creatinine of 7.81. INR is 1.4 and PTT is 64. Emergency Department Course and Treatment: Patient is known to Dr. Pierce. We attempted to contact him but he is signed out for the next 1-2 weeks. IV line was established and patient was given IV fluid boluses. He did have a brief syncopal episode here in the emergency room. Patient's blood pressure is now in the upper 90s. Bleeding was controlled with pressure. Surgifoam along with pressure dressing with Kyree wrap was placed. Following this Tourniquet was released. At this time bleeding is well controlled. I initially spoke with the vascular surgeon in [place]. He advised that as long as the bleeding was under control every thing else was a medical issue at this point. His partner, Dr. Alvarenga, who does come to [place] once a week call me back. He suggested giving the patient protamine because of his elevated PTT as he had likely given heparin during his dialysis. He states that he can do a procedure on the fistula site in 2 days when he is here at [place] if needed. I spoke with hospitalist but they are uncomfortable admitting the patient without having immediate vascular backup should he start to bleed again. In the patient's best interest and considering standard of care, he felt patient should be transferred where vascular surgery was immediately available if needed. [facility] does not have any open beds. [facility] was contacted and patient was accepted by Dr. Dockery. Treatment Plan: [] Disposition: Transfer Impression: 1. Left upper extremity fistula bleeding, controlled 2. Hypotension 3. Syncope 4. Anemia This note was generated with [employer] dictation software. It may contain incorrect words, spelling, and punctuation that were not noted in review of the chart prior to signing ED Disposition - Plan for ED Patient: Chief Complaint: Wound Referrals: Conner Lopez MD [Primary Care Provider] -
[2017-12-09] MEDS: Protamine Sulfate 50 MG/5 ML Vial 25 MG IV (16:13)
[2017-12-10 15:38] LABS: Pathologist Review Reviewed
== END 2017-12-09 17:48 | disposition short-term general hospital (02) ==
PROVIDERS: Emergency Provider Emergency Medicine; Family Provider Family Medicine; PCP Family Medicine
DX: T82.838A Hemorrhage due to vascular prosthetic devices, implants and grafts, initial encounter (principal); I95.9 Hypotension, unspecified; R55 Syncope and collapse; N18.9 Chronic kidney disease, unspecified; D63.1 Anemia in chronic kidney disease; I50.9 Heart failure, unspecified; I48.91 Unspecified atrial fibrillation; J44.9 Chronic obstructive pulmonary disease, unspecified; Z99.2 Dependence on renal dialysis; Z79.01 Long term (current) use of anticoagulants; Z86.711 Personal history of pulmonary embolism; Z79.899 Other long term (current) drug therapy
CPT/HCPCS: 80048; 85025; 85610; 85730; 96361; 96372; 96374; 99285; J7030; J7040

== ENCOUNTER 2018-01-10 20:39 | Inpatient (IN) | payer MEDICARE, SELFPAY ==
[2018-01-10 20:40] VITALS: BP 141/110; PULSE 113; RESP 18; TEMP 36.4; O2SAT 86; BMI 20.3
[2018-01-10 21:17] VITALS: PULSE 104; RESP 16
[2018-01-10] MEDS: Ipratropium/Albuterol Sulfate 3 ML AMPUL.NEB INHALATION (21:17)
[2018-01-10] MEDS: Albuterol 2.5 MG/3 ML VIAL.NEB. INHALATION (21:17)
[2018-01-10 21:39] LABS: Anion Gap 8 (5-15); BUN 22 mg/dL (7-18); BUN/Creat Ratio 7.5 RATIO (10-20); Calcium,Total 9.2 mg/dL (8.5-10.1); Chloride 94 mmol/L (98-107); Creatinine, Serum 2.95 mg/dL (0.70-1.30); EST Glomerular Filtration Rate 23 mL/min (>60); Est Glom Filt Rate - Afr Amer 28 mL/min (>60); Estimated Creatinine Clearance 22.78 ml/min; Glucose 98 mg/dL (74-106); Potassium 3.9 mmol/L (3.5-5.1); Sodium Level 135 mmol/L (136-145)
[2018-01-10 22:04] LABS: Absolute Lymphocyte Count 0.44 X10^3/ul (0.83-4.51); Absolute Neutrophil Count 17.1 X10^3/uL (2.0-7.7); Basophil# 0.03 X10^3/uL; Basophil% 0.2 % (0-1); Eosinophil# 0.04 X10^3/uL; Eosinophils% 0.2 % (0-5); Hematocrit 30.5 % (40-54); Hemoglobin 9.4 g/dl (13.0-16.5); Lymphocyte # 0.44 X10^3/ul (4.0); Lymphocyte % 2.3 % (19-41); Mean Corp Hgb Conc 30.8 g/gl (32-36); Mean Corpuscular Hgb 26.9 pg (27.0-32.0); Mean Corpuscular Volume 87.4 fL (80-94); Mean Platelet Vol. 8.4 fl (6.2-12.0); Monocyte# 1.57 X10^3/uL; Monocyte% 8.2 % (0-10); Neutrophil # 17.09 X10^3/uL (2.7-7.7); Neutrophil % 88.8 % (47-70); POSITIVE DIFFERENTIAL YES; Platelet Count 358 K/mm3 (150-450); RBC Distribution Width CV 17.7 % (11.6-14.6); RBC Distribution Width SD 54.6 fl (35.1-43.9); Red Blood Count 3.49 M/mm3 (4.6-6.2); White Blood Count 19.2 K/mm3 (4.4-11.0)
[2018-01-10 22:05] LABS: Differential Indicated SCAN CRITERIA MET; POSITIVE COUNT NO; POSITIVE MORPHOLOGY NO
[2018-01-10 22:16] VITALS: BP 131/93; PULSE 102; RESP 20; O2SAT 97
[2018-01-10 22:16] LABS: Anisocytosis 1+; Hypochromasia RARE
[2018-01-10 22:17] LABS: Stomatocyte RARE
[2018-01-10 22:18] LABS: Target Cells RARE
[2018-01-10] MEDS: Ondansetron 4 MG/2 ML Vial IV (22:48)
--- NOTE | 2018-01-10 23:03 | ED.VISSUMM ---
- ER Visit Summary Date of Service: 01/10/18 Chief Complaint: Shortness of breath History of Present Illness: The patient is a 57 M with COPD and end-stage renal failure, he had dialysis today however he developed progressive shortness of breath since dialysis. No fever or chills. He is on home oxygen however he rise with breathing mask per EMS. Apparently he was still hypoxic on his 5 L home oxygen. Physical Examination: Patient appears chronically ill, He does appear in some respiratory distress Dry mucous membranes, no obvious facial deformity No C-spine tenderness supple neck. Regular rate and rhythm without any obvious murmurs Patient has diminished breath sounds, he speaks in 2-3 word sentences. Abdomen soft and nontender no guarding or rebound Moves all extremities without any difficulty or pain. Skin does not show any obvious rashes or lesions, no trauma. Alert oriented ?3 with no gross focal deficit. No confusion Emergency Department Course and Treatment: Patient was maintained on a nonrebreather mask, however he continues to decompensate at this time a BiPAP machine will be applied. His x-ray does not show pneumonia or significant fluid overload, however he has leukocytosis therefore I started him on IV antibiotics. He is an [facility] patient. He will need admission and further workup. At this time there is no need for intubation. Disposition: [Admit in guarded condition] Impression: [ Respiratory distress COPD End-stage renal failure] This note was generated with [employer] dictation software. It may contain incorrect words, spelling, and punctuation that were not noted in review of the chart prior to signing ED Disposition - Plan for ED Patient: Chief Complaint: Shortness of Breath Referrals: Conner Lopez MD [Primary Care Provider] -
[2018-01-10 23:05] LABS: Allen Test POS; Base Excess 7 mmol/L (-2 to +2); Bicarbonate 31.4 mmol/L (22-26); Blood Gas Specimen Type ART; O2 Delivery Device NRB Mask; PO2 56 mmHG (75-100); SITE R Brachial; SO2 88 % (95-99); Time Given 2250; Total Carbon Dioxide 33 mmol/L; pCO2 49.6 mmHg (35-45); pH 7.41 (7.35-7.45)
[2018-01-10 23:15] VITALS: PULSE 112; RESP 14; RESP 28; O2SAT 99
[2018-01-10 23:27] VITALS: PULSE 100; RESP 18; O2SAT 100
[2018-01-11] VITALS (35 sets, daily range): BP systolic 106–163; BP diastolic 86–111; PULSE 91–106; RESP 14–25; TEMP 36.6–37.3; O2SAT 90–100; BMI 19.7
--- NOTE | 2018-01-11 00:22 | PCM.HP.STD ---
Problem List (1) HCAP (healthcare-associated pneumonia) Status: Acute (2) ESRD (end stage renal disease) Status: Acute (3) COPD (chronic obstructive pulmonary disease) Status: Acute (4) Atrial fibrillation Status: Chronic Qualifiers: Atrial fibrillation type: paroxysmal (5) Respiratory failure with hypoxia Status: Chronic Qualifiers: (6) Coronary artery arteriosclerosis Status: Chronic History of Present Illness Date of Admission: 01/11/18 Chief Complaint: Acute on chronic hypoxic respiratory failure The patient is a 57 year old male w/ h/o ESRD, HD MWF, COPD, afib, and DMII admitted for acute on chronic hypoxic respiratory failure secondary to HCAP. He is a poor historian. He developed SOB since HD this AM. No fever or chill He has minimal nonproductive cough. He is also on home oxygen. Nothing made his SOB better or worse. His SOB is severe and constant. Workup in the ED disclosed leukocytosis and hypoxia. He is admitted to PCU. Past Medical History Past Medical History (Chronic Problems): Chronic Problems (Last Reviewed 01/11/18 @ 03:00 by Reji Combs MD) ICD extraction (Chronic) MSSA Bacteremia 08/2017 @[facility] Atrial fibrillation (Chronic) retirement current use of anticoagulant (Chronic) Elevated troponin (Chronic) not trending Mitral insufficiency (Chronic) Implantable cardioverter-defibrillator (ICD) in situ (Chronic) implanted in 12/07/2015 at [facility] Sick sinus syndrome (Chronic) S/P dual-chamber Pacemaker/ICD ESRD (end stage renal disease) (Chronic) on HD HTN (hypertension) (Chronic) Pulmonary HTN (Chronic) Anemia with chronic illness (Chronic) ESRD Non-compliance (Chronic) non-compliant with meds and with dialysis Non-compliance with renal dialysis (Chronic) Respiratory failure with hypoxia (Chronic) Bilateral pleural effusion (Chronic) Cardiomyopathy (Chronic) CHF (congestive heart failure) (Chronic) EF 30% Coronary artery arteriosclerosis (Chronic) 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 COPD (chronic obstructive pulmonary disease) (Chronic) History of nephrectomy (Chronic) History of kidney cancer (Chronic) Chest pain (Chronic) Medical History: Medical History (Last Reviewed 01/11/18 @ 03:00 by Reji Combs MD) Atrial fibrillation (Chronic) 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) Z79.01 ESRD (end stage renal disease) (Chronic) N18.6 on HD HTN (hypertension) (Chronic) I10 Pulmonary HTN (Chronic) I27.2 Anemia with chronic illness (Chronic) D63.8 ESRD Non-compliance (Chronic) Z91.19 non-compliant with meds and with dialysis Non-compliance with renal dialysis (Chronic) Z91.15 Respiratory failure with hypoxia (Chronic) J96.91 Bilateral pleural effusion (Chronic) J90 Cardiomyopathy (Chronic) I42.9 CHF (congestive heart failure) (Chronic) I50.9 EF 30% Coronary artery arteriosclerosis (Chronic) I25.10 Parathyroid disease (Chronic) E21.5 due to ESRD COPD (chronic obstructive pulmonary disease) (Chronic) J44.9 History of kidney cancer (Chronic) Z85.528 Chest pain (Chronic) R07.9 Ulcer of foot (Resolved) L97.509 Allergies onion Adverse Reaction (Severe, Verified 01/10/18 20:47) Unknown Home Medications: Ambulatory Orders Medication Instructions Recorded Acetaminophen [Tylenol] 1,000 mg PO Q4H PRN PRN 05/17/15 Calcium Acetate [Phoslo Gel Cap] 667 mg PO TIDCM 05/17/15 Apixaban [Eliquis] 2.5 mg PO BID 11/26/17 Hydroxyzine Pamoate 25 mg PO QHS 11/28/17 Amiodarone HCl [Cordarone] 200 mg PO DAILY tab 12/01/17 Metoprolol Tartrate [Lopressor 50 mg PO TID 12/09/17 (Beta Rosemarie)] Renavite 1 tab PO DAILY 12/09/17 Isosorbide Dinitrate 10 mg PO DAILY 01/10/18 Loratadine 5 mg PO DAILY 01/10/18 Metoclopramide [Reglan] 5 mg PO BID 01/10/18 Nortriptyline HCl 50 mg PO QHS 01/10/18 Omeprazole 40 mg PO BID 01/10/18 hydrALAZINE [Apresoline] 25 mg PO TID 01/10/18 Surgical History: Surgical History (Last Reviewed 01/11/18 @ 03:01 by Reji Combs MD) History of nephrectomy (Chronic) Z98.890, Z90.5 Surgical History: - - AVF placement PAIGE, left nephrectomy for cancer, aicd in Lives: Alf Smoking Status: Former smoker Alcohol: None Drugs: None - *Family History Maternal History Items: No pertinent history, - - Patient's mother at age of 73 with a history of end-stage renal failure. Paternal History Items: Renal Disease, - - The patient's mother at age of 69 with a history of kidney cancer. Review of Systems Constitutional: Denies: Fever, Weight Change HEENT: Denies: Head Aches, Sinus Congestion, Sinus Drainage Cardiovascular: Denies: Chest Pain, Palpitations Respiratory: Reports: Cough, Shortness of breath at rest, Wheezing. Denies: Sputum production Gastrointestinal: Denies: Abdominal Pain, Nausea, Vomiting Genitourinary: Denies: Dysuria Musculoskeletal: Denies: Joint Pain, Joint Tenderness Skin: Denies: Rash, Wounds Neurological: Denies: Numbness, Tingling, Focal weakness Psychiatric: Denies: Anxiety, Depression, Homicidal Ideations, Suicidal Ideations Hematologic/ Lymphatic: Denies: Easy Bruising, Easy Bleeding VTE Information - Inpt Only VTE Present on Admission: No VTE Mechan Device Prophylaxis: SCD's VTE Pharm Prophylaxis ordered?: Yes Patient Problems: Active and Suspected Problems (Last Reviewed 01/11/18 @ 03:00 by Reji Combs MD) HCAP (healthcare-associated pneumonia) (Acute) ESRD (end stage renal disease) (Acute) COPD (chronic obstructive pulmonary disease) (Acute) - Physical Exam General: Confused, Lethargic, - - Ill appearing, on bipap HEENT: Atraumatic, PERRLA, EOMI, Normocephalic Neck: Supple, No JVD, Negative Carotid Bruits Lungs: Diminished, Rhonchi, Short of Breath, Tachypneic Cardiovascular: No murmurs, Tachycardic Abdomen: Bowel Sounds Present, Soft, Non Tender Extremities: No edema, Capillary Refill Less than 3 Seconds Skin: No rashes, No breakdown Musculoskeletal: No Tenderness to Palpation of Joints or Extremities Neurological: Muscle tone normal - moving all extremities Psych/Mental Status: Normal Affect, Appropriate Vital Signs Temp Pulse Resp BP Pulse Ox 97.5 F L 100 18 131/93 H 100 01/10/18 20:40 01/10/18 23:27 01/10/18 23:27 01/10/18 22:16 01/10/18 23:27 Assessment/Plan All Active Problems (Last Reviewed 01/11/18 @ 03:00 by Reji Combs MD) HCAP (healthcare-associated pneumonia) (Acute) ESRD (end stage renal disease) (Acute) COPD (chronic obstructive pulmonary disease) (Acute) Problem with dialysis access (Acute) Lung nodule (Resolved) Ulcer of foot (Resolved) 57 year old male w/ h/o ESRD, HD MWF, COPD, afib, and DMII admitted for acute on chronic hypoxic respiratory failure secondary to HCAP. 1) Acute on chronic hypoxic respiratory failure: Likely secondary to HCAP. Pt is on home oxygen. C/w bipap. Chest xray disclosed continued bibasilar airspace disease with right effusion. C/w zosyn and vancomycin given HD. Cultures pending. Caution with hydration given HD pt. 2) ESRD, HD MWF: Tolerated HD today. Consult renal for HD management. 3) Afib: Rate controlled. C/w eliquis. 4) COPD: Resume bronchodilator. No acute exacerbation.
[2018-01-11] MEDS: Vancomycin IV 1,000 MG/200 ML BAG 200 MG IV (00:29)
--- NOTE | 2018-01-11 00:54 | NURSING ---
Rose pearl rn aware pt ok for floor at this time.
[2018-01-11] MEDS: 0.9% Normal Saline 1,000 ML 50 ML IV (02:08)
[2018-01-11] MEDS: Ondansetron 4 MG/2 ML Vial IV (03:43)
[2018-01-11] MEDS: Morphine 2 MG/ML Syringe IV (03:43)
[2018-01-11] MEDS: Ipratropium/Albuterol Sulfate 3 ML AMPUL.NEB INHALATION ×6 (04:06→22:09)
[2018-01-11] MEDS: Metoprolol Tartrate 50 MG Tablet PO ×2 (05:15→22:38)
[2018-01-11] MEDS: hydrALAZINE 25 MG Tablet PO ×2 (05:15→22:38)
[2018-01-11 05:48] LABS: Absolute Lymphocyte Count 0.63 X10^3/ul (0.83-4.51); Absolute Neutrophil Count 16.9 X10^3/uL (2.0-7.7); Basophil# 0.04 X10^3/uL; Basophil% 0.2 % (0-1); Eosinophil# 0.04 X10^3/uL; Eosinophils% 0.2 % (0-5); Hematocrit 30.1 % (40-54); Hemoglobin 9.5 g/dl (13.0-16.5); Lymphocyte # 0.63 X10^3/ul (4.0); Lymphocyte % 3.3 % (19-41); Mean Corp Hgb Conc 31.6 g/gl (32-36); Mean Corpuscular Hgb 27.8 pg (27.0-32.0); Mean Platelet Vol. 8.6 fl (6.2-12.0); Monocyte# 1.53 X10^3/uL; Neutrophil # 16.89 X10^3/uL (2.7-7.7); Neutrophil % 88.1 % (47-70); Platelet Count 319 K/mm3 (150-450); RBC Distribution Width CV 17.7 % (11.6-14.6); RBC Distribution Width SD 55.5 fl (35.1-43.9); Red Blood Count 3.42 M/mm3 (4.6-6.2); White Blood Count 19.2 K/mm3 (4.4-11.0)
[2018-01-11 05:49] LABS: Differential Indicated SCAN CRITERIA MET; POSITIVE COUNT NO; POSITIVE DIFFERENTIAL YES; POSITIVE MORPHOLOGY YES
[2018-01-11 06:33] LABS: Anion Gap 13 (5-15); BUN 25 mg/dL (7-18); BUN/Creat Ratio 7.7 RATIO (10-20); Calcium,Total 9.2 mg/dL (8.5-10.1); Chloride 97 mmol/L (98-107); Creatinine, Serum 3.23 mg/dL (0.70-1.30); EST Glomerular Filtration Rate 21 mL/min (>60); Est Glom Filt Rate - Afr Amer 25 mL/min (>60); Estimated Creatinine Clearance 20.13 ml/min; Glucose 93 mg/dL (74-106); Lactic Acid 1.3 mmol/L (0.4-2.0); Potassium 4.1 mmol/L (3.5-5.1); Sodium Level 139 mmol/L (136-145)
[2018-01-11] MEDS: LORazepam 2 MG/ML Syringe 0.5 MG IV (06:35)
[2018-01-11] MEDS: 0.9% NaCl Peripheral Flush Adult/Peds IV ×2 (06:35→20:36)
--- NOTE | 2018-01-11 07:31 | NURSING ---
CXR being obtained. Pt lethargic & difficult to arouse. Does open his eyes to his name being called light physical stimuli. Will continue to monitor. Made NPO d/t mental status & resp status.
--- NOTE | 2018-01-11 08:18 | NURSING ---
Dialysis nurse called, stated that pt sees Dr Mejia, not Dr Woods.
--- NOTE | 2018-01-11 09:44 | CASEMGMT ---
Addendum entered by Josefina Pompa 01/11/18 10:14: SARAHY received call from ERNST Joe at [facility]. SW updated Tatyana that pt would be ready for discharge today but he will need pre-cert before returning and this will need to be started on Saturday. Tatyana states understanding. Original Note: Social Work Note Pt is listed as being from [facility]. SW in to speak with pt. Pt unable to speak to this worker at this time. SW placed a call to pt's Shireen. Shireen states that pt has been at [facility] for a week and the plan is for pt to return there at discharge. SARAHY attempted to call [facility] and speak with nurse but was unable to reach nurse. SW provided direct number. Pt is made inpatient and will require pre-cert to return to [facility]. Pre-cert will be submitted on Saturday as insurance companies are not available on the weekends. Plan: Return to [facility] pending pre-cert Josefina Pompa TILE PROFESSIONAL, COURSE INSTRUCTOR
[2018-01-11] MEDS: Piperacil/Tazobactam 3.375 GM Q12 PREMIX IV ×2 (11:58→22:41)
--- NOTE | 2018-01-11 14:05 | PCM.PROGNOTE ---
<Edith Lewis - Last Filed: 01/11/18 14:32> Patient Problems: Active and Suspected Problems (Last Reviewed 01/11/18 @ 03:00 by Reji Combs MD) HCAP (healthcare-associated pneumonia) (Acute) ESRD (end stage renal disease) (Acute) COPD (chronic obstructive pulmonary disease) (Acute) Subjective: Patient seen and examined. Lethargic on assessment and not responding to verbal stimuli. Responds to noxious stimuli. No apparent distress at this time. - Physical Exam General: No apparent distress, Lethargic Oral: Dry Mucosa Neck: Supple, No JVD, Negative Carotid Bruits Lungs: Diminished, Wheezes Cardiovascular: - - Atrial fibrillation, rate controlled. Abdomen: Bowel Sounds Present, Soft, Non Tender, Non-Distended Extremities: No clubbing, No cyanosis, No edema, Capillary Refill Less than 3 Seconds Skin: No rashes, No breakdown Musculoskeletal: No Tenderness to Palpation of Joints or Extremities Neurological: Cranial nerves II-XII grossly intact, Neuro grossly intact Psych/Mental Status: - - Unable to assess due to lethargy. Vital Signs Temp Pulse Resp BP Pulse Ox 98.0 F 92 22 H 130/97 H 96 01/11/18 08:00 01/11/18 13:23 01/11/18 13:23 01/11/18 08:00 01/11/18 13:23 Oxygen Delivery Method Bi-pap Weight: 125 lb 14.143 oz Body Mass Index (BMI) 19.7 Intake and Output for Last 24 Hours 01/09/18 01/10/18 01/11/18 23:59 23:59 23:59 Intake Total 696 / 696 Balance 696 / 696 Microbiology Past 72 Hours 01/11/18 03:55 Influenza Types A,B Direct FA (HEYDI) - Final Mucosa - Nose Influenzae B Laboratory Tests Past 24 Hrs 01/11/18 01/11/18 01/11/18 05:20 05:20 05:20 WBC 19.2 H RBC 3.42 L Hgb 9.5 L Hct 30.1 L MCV 88.0 MCH 27.8 MCHC 31.6 L RDW 17.7 H RDW Differential 55.5 H Plt Count 319 MPV 8.6 Immature Gran % (Auto) 0.200 Neut % (Auto) 88.1 H Lymph % (Auto) 3.3 L Glades % (Auto) 8.0 Eos % (Auto) 0.2 Baso % (Auto) 0.2 Absolute Neuts (auto) 16.9 H Absolute Lymphs (auto) 0.63 L Total Counted Not Reportable Sodium Potassium Chloride Carbon Dioxide Anion Gap BUN Creatinine Estim Creat Clear Calc Est GFR (MDRD) Af Amer Est GFR (MDRD) Non-Af BUN/Creatinine Ratio Glucose Lactic Acid 1.3 Calcium Troponin I 0.071 H 01/11/18 01/11/18 01/11/18 05:20 08:00 10:49 WBC RBC Hgb Hct MCV MCH MCHC RDW RDW Differential Plt Count MPV Immature Gran % (Auto) Neut % (Auto) Lymph % (Auto) Glades % (Auto) Eos % (Auto) Baso % (Auto) Absolute Neuts (auto) Absolute Lymphs (auto) Total Counted Sodium 139 Potassium 4.1 Chloride 97 L Carbon Dioxide 29.0 Anion Gap 13 BUN 25 H Creatinine 3.23 H Estim Creat Clear Calc 20.13 Est GFR (MDRD) Af Amer 25 L Est GFR (MDRD) Non-Af 21 L BUN/Creatinine Ratio 7.7 L Glucose 93 Lactic Acid Calcium 9.2 Troponin I 0.074 H 0.077 H Medical Necessity - Tobacco Use Smoking Status: Former smoker Assessment/Plan All Active Problems (Last Reviewed 01/11/18 @ 03:00 by Reji Combs MD) HCAP (healthcare-associated pneumonia) (Acute) ESRD (end stage renal disease) (Acute) COPD (chronic obstructive pulmonary disease) (Acute) Problem with dialysis access (Acute) Lung nodule (Resolved) Ulcer of foot (Resolved) Patient is a 57-year-old male admitted 01/11/2018 due to worsening shortness of breath. Patient has a past medical history of chronic atrial fibrillation, chronic elevated troponin, chronic chest pain, COPD, chronic systolic CHF, cardiomyopathy, chronic hypoxic respiratory failure, end-stage renal disease on hemodialysis, hypertension, anemia of chronic disease, pulmonary hypertension, sick sinus syndrome status post dual chamber pacemaker/ICD. 1. Acute on chronic hypoxic respiratory failure, COPD exacerbation secondary to acute influenza B-rapid flu positive for influenza B. Continue Tamiflu. Begin IV Solu-Medrol. Patient wears supplemental oxygen chronically. Continue supplement oxygen to maintain O2 at or above 90%. Continue BiPAP. Do not suspect pneumonia. Continue antibiotics empirically. Pulmonary medicine consulted. 2. Chronic pleural effusions-chest x-ray admission with cardiomegaly with pulmonary vascular congestion. Bilateral pleural effusions. Right basilar infiltrate stable. No significant interval changes. Patient had thoracentesis 11/29/2017 during recent admission which confirmed transudate effusions. 3. Paroxysmal atrial fibrillation-Continue home amiodarone, metoprolol, Eliquis regimen. 4. Chronic elevated troponin-recent stress test 10/24/2017 without evidence of ischemia. LVEF 36%. Troponin 0.07 which is lower than prior admissions. 5. Chronic systolic CHF/cardiomyopathy/sick sinus syndrome-status post AICD removal secondary to MSSA bacteremia. Continue home lisinopril, metoprolol. 6. End-stage renal disease-on hemodialysis Saturday, Saturday, Saturday. Follows with Dr. Balbuena. Nephrology consulted. Left upper extremity fistula reported to be nonfunctioning. Patient has right chest temporary dialysis catheter. Continue dialysis per nephrology. 7. Anemia of chronic disease-stable. 8. Hypertension-continue home lisinopril, metoprolol regimen. 9. GERD-continue home omeprazole regimen. DVT prophylaxis-Eliquis. This patient was seen by [facility] [place] under the supervision of Dr. Rojas. <Familia Rojas F - Last Filed: 01/11/18 15:42> - Physical Exam Vital Signs Temp Pulse Resp BP Pulse Ox 98.0 F 97 24 H 130/97 H 96 01/11/18 08:00 01/11/18 15:06 01/11/18 15:06 01/11/18 08:00 01/11/18 15:06 Oxygen Delivery Method Bi-pap Weight: 125 lb 14.143 oz Body Mass Index (BMI) 19.7 Intake and Output for Last 24 Hours 01/09/18 01/10/18 01/11/18 23:59 23:59 23:59 Intake Total 696 / 696 Balance 696 / 696 Microbiology Past 72 Hours 01/11/18 03:55 Influenza Types A,B Direct FA (HEYDI) - Final Mucosa - Nose Influenzae B Laboratory Tests Past 24 Hrs 01/11/18 01/11/18 01/11/18 05:20 05:20 05:20 WBC 19.2 H RBC 3.42 L Hgb 9.5 L Hct 30.1 L MCV 88.0 MCH 27.8 MCHC 31.6 L RDW 17.7 H RDW Differential 55.5 H Plt Count 319 MPV 8.6 Immature Gran % (Auto) 0.200 Neut % (Auto) 88.1 H Lymph % (Auto) 3.3 L Glades % (Auto) 8.0 Eos % (Auto) 0.2 Baso % (Auto) 0.2 Absolute Neuts (auto) 16.9 H Absolute Lymphs (auto) 0.63 L Total Counted Not Reportable Sodium Potassium Chloride Carbon Dioxide Anion Gap BUN Creatinine Estim Creat Clear Calc Est GFR (MDRD) Af Amer Est GFR (MDRD) Non-Af BUN/Creatinine Ratio Glucose Lactic Acid 1.3 Calcium Troponin I 0.071 H 01/11/18 01/11/18 01/11/18 05:20 08:00 10:49 WBC RBC Hgb Hct MCV MCH MCHC RDW RDW Differential Plt Count MPV Immature Gran % (Auto) Neut % (Auto) Lymph % (Auto) Glades % (Auto) Eos % (Auto) Baso % (Auto) Absolute Neuts (auto) Absolute Lymphs (auto) Total Counted Sodium 139 Potassium 4.1 Chloride 97 L Carbon Dioxide 29.0 Anion Gap 13 BUN 25 H Creatinine 3.23 H Estim Creat Clear Calc 20.13 Est GFR (MDRD) Af Amer 25 L Est GFR (MDRD) Non-Af 21 L BUN/Creatinine Ratio 7.7 L Glucose 93 Lactic Acid Calcium 9.2 Troponin I 0.074 H 0.077 H Assessment/Plan Addendum: Dr. Rojas I personally examined the patient and reviewed all information. I agree with above. Multiple comorbidities involved for his respiratory failure. Will continue with broad empiric antibiotics for now. Appreciate recommendations from the consultants involved. Code Visit Inpatient E&M: [id number] Subs Hosp L2
--- NOTE | 2018-01-11 16:59 | DIALYSIS ---
Hep B sab positive (337) 06/03/2017 Hep B Sag (negative) 01/06/2018. Copy of Hepatitis results from [facility]. Copy placed in patient's chart. Report from Primary RN, Osorio Access: Right chest CVC. Site benign, dressing changed per protocol, connections secure, hemosafe applied x 2.
--- NOTE | 2018-01-11 20:04 | DIALYSIS ---
HD tx complete. blood returned. 3.0 hour run, 3k bath. net fluid removed = 2000 ml. Access: Right chest CVC. Site benign, dressing dry and intact, lumen flushed with NS, filled to volume with Heparin, capped and clamped.
[2018-01-11] MEDS: Heparin 10,000 UNITS/10 ML Vial 5000 UNITS IV (20:18)
[2018-01-11] MEDS: Amiodarone 200 MG Tablet PO (20:35)
[2018-01-11] MEDS: Isosorbide DN 10 MG Tablet PO (20:35)
[2018-01-11] MEDS: Folic Acid/Vitamin B Comp W-C 1 Capsule 1 CAP PO (20:35)
[2018-01-11] MEDS: Oseltamivir Phosphate 30 MG Capsule PO (20:36)
[2018-01-11] MEDS: guaiFENesin 1,200 MG Tablet 1200 MG PO (22:37)
[2018-01-11] MEDS: hydrOXYzine PAM 25 MG Capsule PO (22:37)
[2018-01-11] MEDS: APIXABAN 2.5 MG TABLET PO (22:37)
[2018-01-11] MEDS: Nortriptyline 25 MG Capsule 50 MG PO (22:37)
[2018-01-11] MEDS: Pantoprazole Sodium 40 MG Tablet PO (22:38)
[2018-01-11] MEDS: Metoclopramide 10 MG Tablet 5 MG PO (22:38)
--- NOTE | 2018-01-11 22:53 | CPS ---
Pt placed on 7L HFNC 95%
[2018-01-12] VITALS (26 sets, daily range): BP systolic 105–149; BP diastolic 81–116; PULSE 72–110; RESP 12–25; TEMP 36.4–36.6; O2SAT 92–100
[2018-01-12] MEDS: 0.9% NaCl Peripheral Flush Adult/Peds IV ×4 (00:26→23:45)
[2018-01-12] MEDS: Ipratropium/Albuterol Sulfate 3 ML AMPUL.NEB INHALATION ×4 (03:22→15:31)
--- NOTE | 2018-01-12 04:08 | CPS ---
Patient wore bipap for a short period of time yesterday late evening (01/11/18). Patient has continually refused to wear bipap throughout the night.
[2018-01-12] MEDS: Acetaminophen 500 MG Tablet 1000 MG PO ×3 (04:58→21:54)
[2018-01-12] MEDS: Metoprolol Tartrate 50 MG Tablet PO ×3 (05:58→21:53)
[2018-01-12] MEDS: hydrALAZINE 25 MG Tablet PO ×3 (05:58→21:53)
[2018-01-12 06:32] LABS: Hematocrit 32.9 % (40-54); Hemoglobin 10.2 g/dl (13.0-16.5); Mean Corpuscular Hgb 27.1 pg (27.0-32.0); Mean Corpuscular Volume 87.5 fL (80-94); Platelet Count 306 K/mm3 (150-450); RBC Distribution Width CV 17.8 % (11.6-14.6); RBC Distribution Width SD 55.6 fl (35.1-43.9); Red Blood Count 3.76 M/mm3 (4.6-6.2); White Blood Count 15.2 K/mm3 (4.4-11.0)
[2018-01-12 06:39] LABS: Anion Gap 11 (5-15); BUN 21 mg/dL (7-18); BUN/Creat Ratio 8.2 RATIO (10-20); Calcium,Total 9.5 mg/dL (8.5-10.1); Chloride 97 mmol/L (98-107); Creatinine, Serum 2.56 mg/dL (0.70-1.30); EST Glomerular Filtration Rate 28 mL/min (>60); Est Glom Filt Rate - Afr Amer 33 mL/min (>60); Glucose 125 mg/dL (74-106); Potassium 4.3 mmol/L (3.5-5.1); Sodium Level 135 mmol/L (136-145)
[2018-01-12 06:44] LABS: Scan Indicated on CBC? Y/N NO
--- NOTE | 2018-01-12 07:05 | PCM.CONS.GEN ---
Reason for Consult Date of Consultation: 01/12/18 Reason for Consultation: Respiratory failure History of Present Illness: The patient is a 57-year-old male, well-known to me, who presented to the emergency department on January 10 with complaints of progressive dyspnea. On presentation to the emergency department, the patient was noted be afebrile, tachycardic and hypoxic. Laboratory evaluation revealed elevated white blood cell count to 19,000. The patient's troponin was also increased to 0.071. Serum lactate was within normal limits. The patient was started on broad-spectrum antibiotics and transferred to the progressive care unit for ongoing management. A rapid influenza screen was subsequently obtained and the patient was noted to be positive for influenza B. He was then started on Tamiflu. The patient's history is significant for end-stage renal disease, for which she is currently on hemodialysis on a Saturday, Saturday, Saturday schedule. The patient has a smoking history of 0.5 packs per day ?10 years, but quit smoking cigarettes completely 20 years ago. He did utilize smokeless tobacco for period of time. The patient's last surface echocardiogram showed evidence of moderate concentric LVH with an ejection fraction of 40%. There was also evidence of biatrial enlargement with a pulmonary artery systolic pressure estimated to be 54 mmHg. A walking oximetry study completed in July 2016 demonstrated that the patient required 2 L of supplemental oxygen. PFTs also completed at that time demonstrated the presence of an irreversible severe large airways obstructive ventilatory defect with asymmetric reduction in diffusing capacity. However, testing may have been adversely affected by the patient's ability to perform testing maneuvers. The patient also underwent an ultrasound-guided thoracentesis in August 2016 due to progressive shortness of breath. As expected, the pleural fluid studies were consistent with a transudate, related to his volume overloaded state in the setting of heart failure and end-stage renal disease. The patient again underwent an ultrasound-guided thoracentesis in November, during which time 1.25 L of fluid was removed. However, pleural fluid studies were not sent at that time. Attempts previously by nephrology to challenge the patient's dry weight had led to the development of atrial fibrillation. Past Medical History Past Medical History (Chronic Problems): Chronic Problems (Last Reviewed 01/11/18 @ 03:00 by Reji Combs MD) ICD extraction (Chronic) MSSA Bacteremia 08/2017 @[facility] Atrial fibrillation (Chronic) half-way current use of anticoagulant (Chronic) Elevated troponin (Chronic) not trending Mitral insufficiency (Chronic) Implantable cardioverter-defibrillator (ICD) in situ (Chronic) implanted in 12/07/2015 at [facility] Sick sinus syndrome (Chronic) S/P dual-chamber Pacemaker/ICD ESRD (end stage renal disease) (Chronic) on HD HTN (hypertension) (Chronic) Pulmonary HTN (Chronic) Anemia with chronic illness (Chronic) ESRD Non-compliance (Chronic) non-compliant with meds and with dialysis Non-compliance with renal dialysis (Chronic) Respiratory failure with hypoxia (Chronic) Bilateral pleural effusion (Chronic) Cardiomyopathy (Chronic) CHF (congestive heart failure) (Chronic) EF 30% Coronary artery arteriosclerosis (Chronic) 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 COPD (chronic obstructive pulmonary disease) (Chronic) History of nephrectomy (Chronic) History of kidney cancer (Chronic) Chest pain (Chronic) Medical History: Medical History (Last Reviewed 01/11/18 @ 03:00 by Reji Combs MD) Atrial fibrillation (Chronic) I48.91 half-way current use of anticoagulant (Chronic) Z79.01 ESRD (end stage renal disease) (Chronic) N18.6 on HD HTN (hypertension) (Chronic) I10 Pulmonary HTN (Chronic) I27.2 Anemia with chronic illness (Chronic) D63.8 ESRD Non-compliance (Chronic) Z91.19 non-compliant with meds and with dialysis Non-compliance with renal dialysis (Chronic) Z91.15 Respiratory failure with hypoxia (Chronic) J96.91 Bilateral pleural effusion (Chronic) J90 Cardiomyopathy (Chronic) I42.9 CHF (congestive heart failure) (Chronic) I50.9 EF 30% Coronary artery arteriosclerosis (Chronic) I25.10 Parathyroid disease (Chronic) E21.5 due to ESRD COPD (chronic obstructive pulmonary disease) (Chronic) J44.9 History of kidney cancer (Chronic) Z85.528 Chest pain (Chronic) R07.9 Ulcer of foot (Resolved) L97.509 Allergies onion Adverse Reaction (Severe, Verified 01/10/18 20:47) Unknown Home Medications: Ambulatory Orders Medication Instructions Recorded Acetaminophen [Tylenol] 1,000 mg PO Q4H PRN PRN 05/17/15 Calcium Acetate [Phoslo Gel Cap] 667 mg PO TIDCM 05/17/15 Apixaban [Eliquis] 2.5 mg PO BID 11/26/17 Hydroxyzine Pamoate 25 mg PO QHS 11/28/17 Amiodarone HCl [Cordarone] 200 mg PO DAILY tab 12/01/17 Metoprolol Tartrate [Lopressor 50 mg PO TID 12/09/17 (Beta Rosemarie)] Renavite 1 tab PO DAILY 12/09/17 Isosorbide Dinitrate 10 mg PO DAILY 01/10/18 Loratadine 5 mg PO DAILY 01/10/18 Metoclopramide [Reglan] 5 mg PO BID 01/10/18 Nortriptyline HCl 50 mg PO QHS 01/10/18 Omeprazole 40 mg PO BID 01/10/18 hydrALAZINE [Apresoline] 25 mg PO TID 01/10/18 Surgical History: Surgical History (Last Reviewed 01/11/18 @ 03:01 by Reji Combs MD) History of nephrectomy (Chronic) Z98.890, Z90.5 Surgical History: - - AVF placement PAIGE, left nephrectomy for cancer, aicd in Lives: Intermediate Smoking Status: Former smoker Alcohol: None Drugs: None - *Family History Maternal History Items: No pertinent history, - - Patient's mother at age of 73 with a history of end-stage renal failure. Paternal History Items: Renal Disease, - - The patient's mother at age of 69 with a history of kidney cancer. Review of Systems Constitutional: Denies: Chills, Fever, Weight Change HEENT: Denies: Head Aches, Sinus Congestion, Sinus Drainage Cardiovascular: Denies: Chest Pain, Palpitations Respiratory: Reports: Shortness of Breath Gastrointestinal: Denies: Abdominal Pain, Nausea, Vomiting Genitourinary: Denies: Dysuria Musculoskeletal: Denies: Joint Pain, Joint Tenderness Skin: Denies: Rash, Wounds Neurological: Denies: Numbness, Tingling, Focal weakness Psychiatric: Reports: Anxiety Hematologic/ Lymphatic: Reports: Anemia Patient Problems: Active and Suspected Problems (Last Reviewed 01/11/18 @ 03:00 by Reji Combs MD) HCAP (healthcare-associated pneumonia) (Acute) ESRD (end stage renal disease) (Acute) COPD (chronic obstructive pulmonary disease) (Acute) Objective: The patient's most recent lab work, culture data and imaging studies have all been personally reviewed. - Physical Exam General: Alert, Cooperative, No apparent distress HEENT: Atraumatic, PERRLA, Normocephalic Oral: No Gingival or Mucosal Lesions/ Ulcerations Neck: Supple, No Nodes, Trachea Midline Lungs: No rhonchi, No wheeze, No rales, Diminished Cardiovascular: Normal S1, Normal S2, Irregular Rate, Murmur Abdomen: Bowel Sounds Present, Soft, Non Tender, Non-Distended Extremities: No clubbing, No cyanosis, No edema Skin: No breakdown Musculoskeletal: No Tenderness to Palpation of Joints or Extremities, Cachexia Lymphatic: No Cervical, Supraclavicular, or Inguinal Adenopathy Neurological: Neuro grossly intact Psych/Mental Status: Normal Affect, Appropriate Vital Signs Temp Pulse Resp BP Pulse Ox 97.8 F 100 18 128/99 H 96 01/12/18 05:55 01/12/18 07:00 01/12/18 07:00 01/12/18 07:00 01/12/18 07:00 Oxygen Flow Rate (L/min) 7 Oxygen Delivery Method Nasal Cannula Weight: 123 lb 3.814 oz Body Mass Index (BMI) 19.7 Intake and Output for Last 24 Hours 01/10/18 01/11/18 01/12/18 23:59 23:59 23:59 Intake Total 1096 / 1096 765 / 765 Output Total 1999 Balance -904 / -904 765 / 765 Microbiology Past 72 Hours 01/11/18 03:55 Influenza Types A,B Direct FA (HEYDI) - Final Mucosa - Nose Influenzae B Laboratory Tests Past 24 Hrs 01/11/18 01/11/18 01/12/18 08:00 10:49 05:15 WBC 15.2 H RBC 3.76 L Hgb 10.2 L Hct 32.9 L MCV 87.5 MCH 27.1 MCHC 31.0 L RDW 17.8 H RDW Differential 55.6 H Plt Count 306 MPV 9.0 Sodium Potassium Chloride Carbon Dioxide Anion Gap BUN Creatinine Estim Creat Clear Calc Est GFR (MDRD) Af Amer Est GFR (MDRD) Non-Af BUN/Creatinine Ratio Glucose Calcium Troponin I 0.074 H 0.077 H 01/12/18 05:15 WBC RBC Hgb Hct MCV MCH MCHC RDW RDW Differential Plt Count MPV Sodium 135 L Potassium 4.3 Chloride 97 L Carbon Dioxide 27.0 Anion Gap 11 BUN 21 H Creatinine 2.56 H Estim Creat Clear Calc 25.40 Est GFR (MDRD) Af Amer 33 L Est GFR (MDRD) Non-Af 28 L BUN/Creatinine Ratio 8.2 L Glucose 125 H Calcium 9.5 Troponin I Clinical Impression(s) from Imaging Studies Chest X-Ray 01/10/18 20:51 IMPRESSION: Continued bibasilar airspace disease with right effusion Electronically Signed: Yonyninfa Edgar DO at 21:16 EDT Tel , Service support , Chest X-Ray 01/11/18 07:00 IMPRESSION: Cardiomegaly with pulmonary vascular congestion. Bilateral pleural effusion. Right basilar infiltrate is stable. No significant interval changes. Electronically Signed: Ricky Alvarado DO at 8:06 EDT Tel [phone], Service support , Assessment/Plan All Active Problems (Last Reviewed 01/11/18 @ 03:00 by Reji Combs MD) HCAP (healthcare-associated pneumonia) (Acute) ESRD (end stage renal disease) (Acute) COPD (chronic obstructive pulmonary disease) (Acute) Problem with dialysis access (Acute) Lung nodule (Resolved) Ulcer of foot (Resolved) RECOMMENDATIONS: 1. Continue scheduled bronchodilator, steroids and Tamiflu. 2. Okay to discontinue antibiotics from my perspective. 3. Wean supplemental oxygen as tolerated. 4. Continue hemodialysis support per nephrology. 5. Continue Eliquis as ordered. 6. Strongly recommend discontinuation of morphine sulfate and Ativan. IMPRESSIONS: 1. Acute on chronic hypoxemic respiratory failure, likely secondary to COPD with exacerbation due to influenza B infection The patient's chest imaging on presentation to demonstrate stable bilateral pleural effusions and pulmonary vascular congestion, similar to previous. However, the patient did test positive for influenza B. Recommend continuing supportive measures with scheduled bronchodilators, steroids and Tamiflu as ordered. Likely okay to discontinue antibiotics at this time. Wean supplemental oxygen as tolerated. Encourage incentive spirometer use and mobilize patient as tolerated. 2. Paroxysmal atrial fibrillation Continue Eliquis, amiodarone and beta-rosemarie per outpatient regimen. 3. End-stage renal disease on hemodialysis Continue hemodialysis per nephrology recommendations. Recommend discontinuation of morphine and Ativan, given the patient's end-stage renal disease. This note was generated with VBOXation software. It may contain incorrect words, spelling, and punctuation that were not noted in checking the note before signing. Code Visit Inpatient E&M: 06753 Init Hosp L3
[2018-01-12] MEDS: guaiFENesin 1,200 MG Tablet 1200 MG PO ×2 (10:03→21:53)
[2018-01-12] MEDS: Piperacil/Tazobactam 3.375 GM Q12 PREMIX IV (10:03)
[2018-01-12] MEDS: Metoclopramide 10 MG Tablet 5 MG PO ×2 (10:03→21:53)
[2018-01-12] MEDS: Loratadine 10 MG Tablet 5 MG PO (10:03)
[2018-01-12] MEDS: Oseltamivir Phosphate 30 MG Capsule PO (10:03)
[2018-01-12] MEDS: Calcium Acetate 667 MG Capsule PO ×3 (10:03→17:54)
[2018-01-12] MEDS: Amiodarone 200 MG Tablet PO (10:04)
[2018-01-12] MEDS: Isosorbide DN 10 MG Tablet PO (10:04)
[2018-01-12] MEDS: Folic Acid/Vitamin B Comp W-C 1 Capsule 1 CAP PO (10:04)
[2018-01-12] MEDS: Pantoprazole Sodium 40 MG Tablet PO ×2 (10:04→21:53)
[2018-01-12] MEDS: APIXABAN 2.5 MG TABLET PO ×2 (10:04→21:54)
--- NOTE | 2018-01-12 10:33 | PCM.PROGNOTE ---
<Edith Lewis - Last Filed: 01/12/18 10:38> Patient Problems: Active and Suspected Problems (Last Reviewed 01/11/18 @ 03:00 by Reji Combs MD) HCAP (healthcare-associated pneumonia) (Acute) ESRD (end stage renal disease) (Acute) COPD (chronic obstructive pulmonary disease) (Acute) Subjective: Patient seen and examined. Mental status improved today. Alert and oriented. Notes improvement with breathing. States he wants to rest. No other complaints. - Physical Exam General: Alert, Oriented x3, Cooperative, No apparent distress HEENT: Atraumatic, PERRLA, EOMI, Normocephalic Neck: Supple, No JVD, Negative Carotid Bruits Lungs: Diminished, Wheezes Cardiovascular: Murmur, - - Atrial for ablation, rate controlled. Abdomen: Bowel Sounds Present, Soft, Non Tender, Non-Distended Extremities: No clubbing, No cyanosis, No edema, Capillary Refill Less than 3 Seconds Skin: No rashes, No breakdown Musculoskeletal: No Tenderness to Palpation of Joints or Extremities Neurological: Cranial nerves II-XII grossly intact, Neuro grossly intact Psych/Mental Status: Normal Affect, Appropriate Vital Signs Temp Pulse Resp BP Pulse Ox 97.8 F 85 12 127/100 H 100 01/12/18 08:00 01/12/18 08:00 01/12/18 08:00 01/12/18 08:00 01/12/18 08:00 Oxygen Flow Rate (L/min) 7 Oxygen Delivery Method Nasal Cannula Weight: 123 lb 3.814 oz Body Mass Index (BMI) 19.7 Intake and Output for Last 24 Hours 01/10/18 01/11/18 01/12/18 23:59 23:59 23:59 Intake Total 1096 / 1096 765 / 765 Output Total 1999 Balance -904 / -904 765 / 765 Microbiology Past 72 Hours 01/11/18 03:55 Influenza Types A,B Direct FA (HEYDI) - Final Mucosa - Nose Influenzae B Laboratory Tests Past 24 Hrs 01/11/18 01/12/18 01/12/18 10:49 05:15 05:15 WBC 15.2 H RBC 3.76 L Hgb 10.2 L Hct 32.9 L MCV 87.5 MCH 27.1 MCHC 31.0 L RDW 17.8 H RDW Differential 55.6 H Plt Count 306 MPV 9.0 Sodium 135 L Potassium 4.3 Chloride 97 L Carbon Dioxide 27.0 Anion Gap 11 BUN 21 H Creatinine 2.56 H Estim Creat Clear Calc 25.40 Est GFR (MDRD) Af Amer 33 L Est GFR (MDRD) Non-Af 28 L BUN/Creatinine Ratio 8.2 L Glucose 125 H Calcium 9.5 Troponin I 0.077 H Medical Necessity - Tobacco Use Smoking Status: Former smoker Assessment/Plan All Active Problems (Last Reviewed 01/11/18 @ 03:00 by Reji Combs MD) HCAP (healthcare-associated pneumonia) (Acute) ESRD (end stage renal disease) (Acute) COPD (chronic obstructive pulmonary disease) (Acute) Problem with dialysis access (Acute) Lung nodule (Resolved) Ulcer of foot (Resolved) Patient is a 57-year-old male admitted 01/11/2018 due to worsening shortness of breath. Patient has a past medical history of chronic atrial fibrillation, chronic elevated troponin, chronic chest pain, COPD, chronic systolic CHF, cardiomyopathy, chronic hypoxic respiratory failure, end-stage renal disease on hemodialysis, hypertension, anemia of chronic disease, pulmonary hypertension, sick sinus syndrome status post dual chamber pacemaker/ICD. 1. Acute on chronic hypoxic respiratory failure, COPD exacerbation secondary to acute influenza B-rapid flu positive for influenza B. Continue Tamiflu. Continue IV Solu-Medrol. Patient wears supplemental oxygen chronically. Continue supplement oxygen to maintain O2 at or above 90%. Continue BiPAP as needed. Do not suspect pneumonia. Discontinue antibiotics. Pulmonary medicine consulted. 2. Chronic pleural effusions-chest x-ray admission with cardiomegaly with pulmonary vascular congestion. Bilateral pleural effusions. Right basilar infiltrate stable. No significant interval changes. Patient had thoracentesis 11/29/2017 during recent admission which confirmed transudate effusions. 3. Paroxysmal atrial fibrillation-Continue home amiodarone, metoprolol, Eliquis regimen. 4. Chronic elevated troponin-recent stress test 10/24/2017 without evidence of ischemia. LVEF 36%. Troponin 0.07 which is lower than prior admissions. 5. Chronic systolic CHF/cardiomyopathy/sick sinus syndrome-status post AICD removal secondary to MSSA bacteremia. Continue home lisinopril, metoprolol. 6. End-stage renal disease-on hemodialysis Saturday, Saturday, Saturday. Follows with Dr. Balbuena. Nephrology consulted. Left upper extremity fistula reported to be nonfunctioning. Patient has right chest temporary dialysis catheter. Continue dialysis per nephrology. 7. Anemia of chronic disease-stable. 8. Hypertension-continue home lisinopril, metoprolol regimen. 9. GERD-continue home omeprazole regimen. DVT prophylaxis-Eliquis. This patient was seen by [facility] [place] under the supervision of Dr. Rojas. <Familia Rojas F - Last Filed: 01/12/18 11:39> - Physical Exam Vital Signs Temp Pulse Resp BP Pulse Ox 97.8 F 89 20 H 121/100 H 94 01/12/18 10:35 01/12/18 11:03 01/12/18 11:03 01/12/18 10:35 01/12/18 10:35 Oxygen Flow Rate (L/min) 7 Oxygen Delivery Method Nasal Cannula Weight: 123 lb 3.814 oz Body Mass Index (BMI) 19.7 Intake and Output for Last 24 Hours 01/10/18 01/11/18 01/12/18 23:59 23:59 23:59 Intake Total 1096 / 1096 765 / 765 Output Total 1999 Balance -904 / -904 765 / 765 Microbiology Past 72 Hours 01/11/18 03:55 Influenza Types A,B Direct FA (HEYDI) - Final Mucosa - Nose Influenzae B Laboratory Tests Past 24 Hrs 01/12/18 01/12/18 05:15 05:15 WBC 15.2 H RBC 3.76 L Hgb 10.2 L Hct 32.9 L MCV 87.5 MCH 27.1 MCHC 31.0 L RDW 17.8 H RDW Differential 55.6 H Plt Count 306 MPV 9.0 Sodium 135 L Potassium 4.3 Chloride 97 L Carbon Dioxide 27.0 Anion Gap 11 BUN 21 H Creatinine 2.56 H Estim Creat Clear Calc 25.40 Est GFR (MDRD) Af Amer 33 L Est GFR (MDRD) Non-Af 28 L BUN/Creatinine Ratio 8.2 L Glucose 125 H Calcium 9.5 Assessment/Plan Addeneum: Dr. Rojas I personally examined the patient and reviewed the chart. I agree with the above documentation. Much more alert today, would not provide anymore ativan or morphine. c/w tamiflu. Plan for DC in the morning Code Visit Inpatient E&M: 96347 Subs Hosp L2
[2018-01-12] MEDS: hydrOXYzine PAM 25 MG Capsule PO (21:53)
[2018-01-12] MEDS: Nortriptyline 25 MG Capsule 50 MG PO (21:53)
[2018-01-13] VITALS (18 sets, daily range): BP systolic 123–131; BP diastolic 89–100; PULSE 55–103; RESP 16–22; TEMP 36.3–36.8; O2SAT 94–97
--- NOTE | 2018-01-13 00:34 | NURSING ---
PATIENT NON-COMPLIANT WITH BIPAP WORE FOR LESS THAN AN HOUR AND WANTED BACK ON OXYGEN. STATES GIVES HIM TOO MUCH AIR. EDUCATED PATIENT ON PURPOSE OF BIPAP AND STILL NOT WANTING TO WEAR IT AT THIS TIME.
[2018-01-13] MEDS: 0.9% NaCl Peripheral Flush Adult/Peds IV (05:08)
[2018-01-13 07:01] LABS: Absolute Lymphocyte Count 0.26 X10^3/ul (0.83-4.51); Basophil# 0.01 X10^3/uL; Basophil% 0.1 % (0-1); Differential Indicated SCAN CRITERIA MET; Hematocrit 36.3 % (40-54); Hemoglobin 11.1 g/dl (13.0-16.5); Lymphocyte # 0.26 X10^3/ul (4.0); Lymphocyte % 1.8 % (19-41); Mean Corp Hgb Conc 30.6 g/gl (32-36); Mean Corpuscular Hgb 26.7 pg (27.0-32.0); Mean Corpuscular Volume 87.5 fL (80-94); Mean Platelet Vol. 9.1 fl (6.2-12.0); Monocyte% 3.4 % (0-10); Neutrophil # 14.04 X10^3/uL (2.7-7.7); Neutrophil % 94.4 % (47-70); POSITIVE COUNT NO; POSITIVE DIFFERENTIAL YES; POSITIVE MORPHOLOGY NO; Platelet Count 320 K/mm3 (150-450); RBC Distribution Width CV 18.3 % (11.6-14.6); RBC Distribution Width SD 56.3 fl (35.1-43.9); Red Blood Count 4.15 M/mm3 (4.6-6.2); White Blood Count 14.9 K/mm3 (4.4-11.0)
[2018-01-13 07:15] LABS: BUN 37 mg/dL (7-18); Creatinine, Serum 3.35 mg/dL (0.70-1.30); EST Glomerular Filtration Rate 20 mL/min (>60); Estimated Creatinine Clearance 19.79 ml/min; Glucose 132 mg/dL (74-106)
[2018-01-13 07:16] LABS: Anion Gap 11 (5-15); Calcium,Total 10.2 mg/dL (8.5-10.1); Chloride 96 mmol/L (98-107); Est Glom Filt Rate - Afr Amer 24 mL/min (>60); Potassium 5.1 mmol/L (3.5-5.1); Sodium Level 130 mmol/L (136-145)
[2018-01-13] MEDS: Ipratropium/Albuterol Sulfate 3 ML AMPUL.NEB INHALATION ×5 (07:17→23:32)
--- NOTE | 2018-01-13 08:42 | CASEMGMT ---
Addendum entered by Rose Garcia 01/13/18 14:01: SARAHY faxed PT/OT evaluations to [facility]. Await insurance authorization. Rose SOSA Original Note: Information was faxed to [facility]. PT/OT had not been ordered so SARAHY ordered this and once evaluations are in computer SARAHY will fax them to [facility] so they can start the pre-cert. Plan: d/c back to [facility] pending pre-cert Rose NAVA CLEARING HAND
--- NOTE | 2018-01-13 09:50 | PCM.CONS.R ---
Problem List (1) ESRD (end stage renal disease) Status: Acute Consultation - Renal PCP/ Referring MD: Requesting physician: [] Primary care physician: Conner Lopez - History of Present Illness History of Present Illness: The patient is a 57 year old M PMH of ESRD on MWF. Patient presented with SOB. Patient was admitted with influenza B/vascular pulmonary congestion and right side pneumonia. Patient was dialyzed Saturday for fluid removal Patient felt better yesterday but he is again SOB this morning. On NC at 6 l/m He can not even talk. ROS: obviously SOB. He can not talk to review the rest of ROS> He asked to leave him alone [] - Allergies Allergies: Allergies onion Adverse Reaction (Severe, Verified 01/10/18 20:47) Unknown - Current Medications Current Medications: Current Medications Acetaminophen (Tylenol) 1,000 mg PO Q4H PRN PRN PRN Reason: PAIN Last Admin: 01/12/18 21:54 Dose: 1,000 mg Albuterol/Ipratropium (Duoneb) 3 ml INHALATION Q4H.RT [facility] Last Admin: 01/13/18 07:17 Dose: 3 ml Amiodarone HCl (Cordarone) 200 mg PO DAILY [facility] Last Admin: 01/12/18 10:04 Dose: 200 mg Apixaban (Eliquis) 2.5 mg PO BID [facility] Last Admin: 01/12/18 21:54 Dose: 2.5 mg Calcium Acetate (Phoslo Gel Cap) 667 mg PO TIDCM [facility] Last Admin: 01/12/18 17:54 Dose: 667 mg Guaifenesin (Mucinex) 1,200 mg PO BID [facility] Last Admin: 01/12/18 21:53 Dose: 1,200 mg Hydralazine HCl (Apresoline) 25 mg PO TID [facility] Last Admin: 01/13/18 03:54 Dose: Not Given Hydroxyzine Pamoate (Vistaril Pamoate Capsule) 25 mg PO QHS [facility] Last Admin: 01/12/18 21:53 Dose: 25 mg Isosorbide Dinitrate (Isordil) 10 mg PO DAILY [facility] Last Admin: 01/12/18 10:04 Dose: 10 mg Loratadine (Claritin) 5 mg PO DAILY [facility] Last Admin: 01/12/18 10:03 Dose: 5 mg Methylprednisolone (Solu-Medrol) 40 mg IV Q6 [facility] Last Admin: 01/13/18 05:08 Dose: 40 mg Metoclopramide HCl (Reglan) 5 mg PO BID [facility] Last Admin: 01/12/18 21:53 Dose: 5 mg Metoprolol Tartrate (Lopressor (Beta Rosemarie)) 50 mg PO TID [facility] Last Admin: 01/13/18 03:54 Dose: Not Given Multivit/Ca Carb/B Cmplx/FA/Prenat (Nephrocaps, Renaphro) 1 capsule PO DAILY [facility] Last Admin: 01/12/18 10:04 Dose: 1 capsule Nortriptyline HCl (Pamelor) 50 mg PO QHS [facility] Last Admin: 01/12/18 21:53 Dose: 50 mg Ondansetron HCl (Zofran) 4 mg IV Q8H PRN PRN PRN Reason: NAUSEA Last Admin: 01/11/18 03:43 Dose: 4 mg Oseltamivir Phosphate (Tamiflu) 30 mg PO DAILY [facility] Stop: 01/15/18 10:01 Last Admin: 01/12/18 10:03 Dose: 30 mg Pantoprazole Sodium (Protonix) 40 mg PO BID [facility] Last Admin: 01/12/18 21:53 Dose: 40 mg Sodium Chloride () 5 - 30 ml IV UD PRN PRN Reason: SALINE FLUSH Last Admin: 01/13/18 05:08 Dose: 10 ml - Past Medical History Past Medical History (Chronic Problems): Chronic Problems (Last Reviewed 01/11/18 @ 03:00 by Reji Combs MD) ICD extraction (Chronic) MSSA Bacteremia 08/2017 @[facility] Atrial fibrillation (Chronic) 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 Paternal History Items: Renal Disease, - - The patient's mother at age of 69 with a history of kidney cancer. Patient Problems: Active and Suspected Problems (Last Reviewed 01/11/18 @ 03:00 by Reji Combs MD) HCAP (healthcare-associated pneumonia) (Acute) ESRD (end stage renal disease) (Acute) COPD (chronic obstructive pulmonary disease) (Acute) - Physical Exam General: Alert, - - in acute distress due to SOB HEENT: Atraumatic Oral: Moist Mucosa Lungs: - - decreased BS over both lungs bases and crackles B/L Cardiovascular: Regular rate, Regular Rhythm, Normal S1, Normal S2 Abdomen: Bowel Sounds Present, Soft, Non Tender Extremities: - - +2 edema of LE Lymphatic: No Cervical, Supraclavicular, or Inguinal Adenopathy Neurological: Cranial nerves II-XII grossly intact, Neuro grossly intact Psych/Mental Status: Anxious Vital Signs Temp Pulse Resp BP Pulse Ox 97.9 F 88 20 H 130/99 H 96 01/13/18 03:53 01/13/18 07:26 01/13/18 07:17 01/13/18 03:53 01/13/18 07:17 Oxygen Flow Rate (L/min) 6 Oxygen Delivery Method Nasal Cannula Weight: 58.2 kg Body Mass Index (BMI) 19.7 Intake and Output for Last 24 Hours 01/11/18 01/12/18 01/13/18 23:59 23:59 23:59 Intake Total 1096 / 1096 1657.5 / 1657.5 536 / 536 Output Total 1999 Balance -904 / -904 1657.5 / 1657.5 536 / 536 Microbiology Past 72 Hours 01/11/18 05:20 Blood Culture - Preliminary Blood Culture (Wb) - Right Hand No growth in 48 hours. 01/11/18 05:30 Blood Culture - Preliminary Blood Culture (Wb) - Right Wrist No growth in 48 hours. 01/11/18 03:55 Influenza Types A,B Direct FA (HEYDI) - Final Mucosa - Nose Influenzae B Laboratory Tests Past 24 Hrs 01/13/18 01/13/18 06:35 06:35 WBC 14.9 H RBC 4.15 L Hgb 11.1 L Hct 36.3 L MCV 87.5 MCH 26.7 L MCHC 30.6 L RDW 18.3 H RDW Differential 56.3 H Plt Count 320 MPV 9.1 Immature Gran % (Auto) 0.300 Neut % (Auto) 94.4 H Lymph % (Auto) 1.8 L [place] % (Auto) 3.4 Eos % (Auto) 0.0 Baso % (Auto) 0.1 Absolute Neuts (auto) 14.0 H Absolute Lymphs (auto) 0.26 L Total Counted Not Reportable Differential Comment COMMENT Sodium 130 L Potassium 5.1 Chloride 96 L Carbon Dioxide 23.0 Anion Gap 11 BUN 37 H Creatinine 3.35 H Estim Creat Clear Calc 19.79 Est GFR (MDRD) Af Amer 24 L Est GFR (MDRD) Non-Af 20 L BUN/Creatinine Ratio 11.0 Glucose 132 H Calcium 10.2 H Assessment/Plan All Active Problems (Last Reviewed 01/11/18 @ 03:00 by Reji Combs MD) HCAP (healthcare-associated pneumonia) (Acute) ESRD (end stage renal disease) (Acute) COPD (chronic obstructive pulmonary disease) (Acute) Problem with dialysis access (Acute) Lung nodule (Resolved) Ulcer of foot (Resolved) 1 ESRD On MWF. Patient goes to [facility] HD unit. Patient had extra session Saturday for fluid removal Will arrange for HD session today with 3 L UF to help his respiratory status 2-HTN: BP is well controlled. Continue the same BP meds 3- Acute hypoxemic RF due to pneumonia/Infleunza B infection and vascular congestion. Pneumonia/Flu treatment as per the primary service Will arrange for HD and UF today as above 02 support to Keep S02 > 92% Renal team will continue to follow Kaitlin Lei MD
--- NOTE | 2018-01-13 11:13 | PCM.PROGNOTE ---
<Edith Lewis - Last Filed: 01/13/18 11:17> Patient Problems: Active and Suspected Problems (Last Reviewed 01/11/18 @ 03:00 by Reji Combs MD) HCAP (healthcare-associated pneumonia) (Acute) ESRD (end stage renal disease) (Acute) COPD (chronic obstructive pulmonary disease) (Acute) Subjective: Patient seen and examined. States breathing is improved. Drowsy on assessment. No other current complaints. Awaiting pre-CERT to return to SNF. - Physical Exam General: Oriented x3, Cooperative, - - Drowsy HEENT: Atraumatic, PERRLA, EOMI, Normocephalic Oral: Dry Mucosa Neck: Supple, No JVD, Negative Carotid Bruits Lungs: Clear to auscultation, Diminished Cardiovascular: Murmur, - - Atrial fibrillation, rate controlled. Abdomen: Bowel Sounds Present, Soft, Non Tender, Non-Distended Extremities: No clubbing, No cyanosis, No edema, Capillary Refill Less than 3 Seconds Skin: No rashes, No breakdown Musculoskeletal: No Tenderness to Palpation of Joints or Extremities Neurological: Cranial nerves II-XII grossly intact, Neuro grossly intact Psych/Mental Status: Normal Affect, Appropriate Vital Signs Temp Pulse Resp BP Pulse Ox 97.9 F 88 20 H 130/99 H 96 01/13/18 03:53 01/13/18 07:26 01/13/18 07:17 01/13/18 03:53 01/13/18 07:17 Oxygen Flow Rate (L/min) 6 Oxygen Delivery Method Nasal Cannula Weight: 128 lb 4.944 oz Body Mass Index (BMI) 19.7 Intake and Output for Last 24 Hours 01/11/18 01/12/18 01/13/18 23:59 23:59 23:59 Intake Total 1096 / 1096 1657.5 / 1657.5 536 / 536 Output Total 1999 Balance -904 / -904 1657.5 / 1657.5 536 / 536 Microbiology Past 72 Hours 01/11/18 05:20 Blood Culture - Preliminary Blood Culture (Wb) - Right Hand No growth in 48 hours. 01/11/18 05:30 Blood Culture - Preliminary Blood Culture (Wb) - Right Wrist No growth in 48 hours. 01/11/18 03:55 Influenza Types A,B Direct FA (HEYDI) - Final Mucosa - Nose Influenzae B Laboratory Tests Past 24 Hrs 01/13/18 01/13/18 06:35 06:35 WBC 14.9 H RBC 4.15 L Hgb 11.1 L Hct 36.3 L MCV 87.5 MCH 26.7 L MCHC 30.6 L RDW 18.3 H RDW Differential 56.3 H Plt Count 320 MPV 9.1 Immature Gran % (Auto) 0.300 Neut % (Auto) 94.4 H Lymph % (Auto) 1.8 L [place] % (Auto) 3.4 Eos % (Auto) 0.0 Baso % (Auto) 0.1 Absolute Neuts (auto) 14.0 H Absolute Lymphs (auto) 0.26 L Total Counted Not Reportable Differential Comment COMMENT Sodium 130 L Potassium 5.1 Chloride 96 L Carbon Dioxide 23.0 Anion Gap 11 BUN 37 H Creatinine 3.35 H Estim Creat Clear Calc 19.79 Est GFR (MDRD) Af Amer 24 L Est GFR (MDRD) Non-Af 20 L BUN/Creatinine Ratio 11.0 Glucose 132 H Calcium 10.2 H Medical Necessity - Tobacco Use Smoking Status: Former smoker Assessment/Plan All Active Problems (Last Reviewed 01/11/18 @ 03:00 by Reji Combs MD) HCAP (healthcare-associated pneumonia) (Acute) ESRD (end stage renal disease) (Acute) COPD (chronic obstructive pulmonary disease) (Acute) Problem with dialysis access (Acute) Lung nodule (Resolved) Ulcer of foot (Resolved) Patient is a 57-year-old male admitted 01/11/2018 due to worsening shortness of breath. Patient has a past medical history of chronic atrial fibrillation, chronic elevated troponin, chronic chest pain, COPD, chronic systolic CHF, cardiomyopathy, chronic hypoxic respiratory failure, end-stage renal disease on hemodialysis, hypertension, anemia of chronic disease, pulmonary hypertension, sick sinus syndrome status post dual chamber pacemaker/ICD. 1. Acute on chronic hypoxic respiratory failure, COPD exacerbation secondary to acute influenza B-rapid flu positive for influenza B. Continue Tamiflu. Continue IV Solu-Medrol. Transition to oral prednisone taper tomorrow. Patient wears supplemental oxygen chronically. Continue supplement oxygen to maintain O2 at or above 90%. Continue BiPAP as needed. Do not suspect pneumonia. Antibiotics discontinued. Pulmonary medicine consulted. 2. Chronic pleural effusions-chest x-ray admission with cardiomegaly with pulmonary vascular congestion. Bilateral pleural effusions. Right basilar infiltrate stable. No significant interval changes. Patient had thoracentesis 11/29/2017 during recent admission which confirmed transudate effusions. 3. Paroxysmal atrial fibrillation-Continue home amiodarone, metoprolol, Eliquis regimen. 4. Chronic elevated troponin-recent stress test 10/24/2017 without evidence of ischemia. LVEF 36%. Troponin 0.07 which is lower than prior admissions. 5. Chronic systolic CHF/cardiomyopathy/sick sinus syndrome-status post AICD removal secondary to MSSA bacteremia. Continue home lisinopril, metoprolol. 6. End-stage renal disease-on hemodialysis Saturday, Saturday, Saturday. Follows with Dr. Balbuena. Nephrology consulted. Left upper extremity fistula reported to be nonfunctioning. Patient has right chest temporary dialysis catheter. Continue dialysis per nephrology. 7. Anemia of chronic disease-stable. 8. Hypertension-continue home lisinopril, metoprolol regimen. 9. GERD-continue home omeprazole regimen. DVT prophylaxis-Eliquis. Discharge planning: Pending pre-CERT to return to SNF. This patient was seen by [facility] [place] under the supervision of Dr. Rojas. <Familia Rojas F - Last Filed: 01/13/18 16:40> - Physical Exam Vital Signs Temp Pulse Resp BP Pulse Ox 97.4 F L 75 18 126/95 H 95 01/13/18 16:32 01/13/18 16:32 01/13/18 16:32 01/13/18 16:32 01/13/18 16:00 Oxygen Flow Rate (L/min) 6 Oxygen Delivery Method Nasal Cannula Weight: 128 lb 4.944 oz Body Mass Index (BMI) 19.7 Intake and Output for Last 24 Hours 01/11/18 01/12/18 01/13/18 23:59 23:59 23:59 Intake Total 1096 / 1096 1657.5 / 1657.5 988 / 988 Output Total 1999 Balance -904 / -904 1657.5 / 1657.5 988 / 988 Microbiology Past 72 Hours 01/11/18 05:20 Blood Culture - Preliminary Blood Culture (Wb) - Right Hand No growth in 48 hours. 01/11/18 05:30 Blood Culture - Preliminary Blood Culture (Wb) - Right Wrist No growth in 48 hours. 01/11/18 03:55 Influenza Types A,B Direct FA (HEYDI) - Final Mucosa - Nose Influenzae B Laboratory Tests Past 24 Hrs 01/13/18 01/13/18 06:35 06:35 WBC 14.9 H RBC 4.15 L Hgb 11.1 L Hct 36.3 L MCV 87.5 MCH 26.7 L MCHC 30.6 L RDW 18.3 H RDW Differential 56.3 H Plt Count 320 MPV 9.1 Immature Gran % (Auto) 0.300 Neut % (Auto) 94.4 H Lymph % (Auto) 1.8 L [place] % (Auto) 3.4 Eos % (Auto) 0.0 Baso % (Auto) 0.1 Absolute Neuts (auto) 14.0 H Absolute Lymphs (auto) 0.26 L Total Counted Not Reportable Differential Comment COMMENT Sodium 130 L Potassium 5.1 Chloride 96 L Carbon Dioxide 23.0 Anion Gap 11 BUN 37 H Creatinine 3.35 H Estim Creat Clear Calc 19.79 Est GFR (MDRD) Af Amer 24 L Est GFR (MDRD) Non-Af 20 L BUN/Creatinine Ratio 11.0 Glucose 132 H Calcium 10.2 H Assessment/Plan Addendum: Dr. Rojas I personally examined the patient and reviewed the chart. I agree with the above. C/w Tamiflu until 01/15. Unfortunately DC delayed, PT/OT obtained today so possible DC in am. Code Visit Inpatient E&M: 72630 Subs Hosp L2
--- NOTE | 2018-01-13 11:44 | PN_ITS ---
Patient Problems: Active and Suspected Problems (Last Reviewed 01/11/18 @ 03:00 by Reji Combs MD) HCAP (healthcare-associated pneumonia) (Acute) ESRD (end stage renal disease) (Acute) COPD (chronic obstructive pulmonary disease) (Acute) Subjective: Patient did well overnight. Patient feels subjectively slightly improved from a respiratory distress standpoint compared to previous. Patient is still requiring significant nasal cannula oxygen to maintain saturations. Patient states his normal dialysis days are Saturday, Saturday and Saturday. - Physical Exam General: Alert, Oriented x3, Cooperative, No apparent distress, - - Appears older than stated age. Speaking in full sentences. HEENT: Atraumatic, PERRLA, EOMI, Normocephalic, - - No scleral icterus or injection noted. Oral: Moist Mucosa, No Gingival or Mucosal Lesions/ Ulcerations Neck: Supple, No JVD, No Nodes, Trachea Midline Lungs: No rhonchi, No rales, Diminished, Wheezes - Sporadic Cardiovascular: Regular rate, Regular Rhythm, Normal S1, Normal S2, Murmur, No rub noted, No Gallop Abdomen: Bowel Sounds Present, Soft, Non Tender, Non-Distended Extremities: No cyanosis, Capillary Refill Less than 3 Seconds, Clubbing, Edema Skin: No rashes, No breakdown Musculoskeletal: No Tenderness to Palpation of Joints or Extremities Lymphatic: No Cervical, Supraclavicular, or Inguinal Adenopathy Neurological: Cranial nerves II-XII grossly intact, Neuro grossly intact, Sensory exam intact to light touch and pain Psych/Mental Status: Alert and oriented to time, place, person, mood and affect Vital Signs Temp Pulse Resp BP Pulse Ox 36.6 C 88 18 131/93 H 94 01/13/18 09:55 01/13/18 11:31 01/13/18 09:55 01/13/18 09:55 01/13/18 09:55 Oxygen Flow Rate (L/min) 6 Oxygen Delivery Method Nasal Cannula Weight: 58.2 kg Body Mass Index (BMI) 19.7 Intake and Output for Last 24 Hours 01/11/18 01/12/18 01/13/18 23:59 23:59 23:59 Intake Total 1096 / 1096 1657.5 / 1657.5 536 / 536 Output Total 1999 Balance -904 / -904 1657.5 / 1657.5 536 / 536 Microbiology Past 72 Hours 01/11/18 05:20 Blood Culture - Preliminary Blood Culture (Wb) - Right Hand No growth in 48 hours. 01/11/18 05:30 Blood Culture - Preliminary Blood Culture (Wb) - Right Wrist No growth in 48 hours. 01/11/18 03:55 Influenza Types A,B Direct FA (HEYDI) - Final Mucosa - Nose Influenzae B Laboratory Tests Past 24 Hrs 01/13/18 01/13/18 06:35 06:35 WBC 14.9 H RBC 4.15 L Hgb 11.1 L Hct 36.3 L MCV 87.5 MCH 26.7 L MCHC 30.6 L RDW 18.3 H RDW Differential 56.3 H Plt Count 320 MPV 9.1 Immature Gran % (Auto) 0.300 Neut % (Auto) 94.4 H Lymph % (Auto) 1.8 L [place] % (Auto) 3.4 Eos % (Auto) 0.0 Baso % (Auto) 0.1 Absolute Neuts (auto) 14.0 H Absolute Lymphs (auto) 0.26 L Total Counted Not Reportable Differential Comment COMMENT Sodium 130 L Potassium 5.1 Chloride 96 L Carbon Dioxide 23.0 Anion Gap 11 BUN 37 H Creatinine 3.35 H Estim Creat Clear Calc 19.79 Est GFR (MDRD) Af Amer 24 L Est GFR (MDRD) Non-Af 20 L BUN/Creatinine Ratio 11.0 Glucose 132 H Calcium 10.2 H Medical Necessity - Tobacco Use Smoking Status: Former smoker Assessment/Plan All Active Problems (Last Reviewed 01/11/18 @ 03:00 by Reji Combs MD) HCAP (healthcare-associated pneumonia) (Acute) ESRD (end stage renal disease) (Acute) COPD (chronic obstructive pulmonary disease) (Acute) Problem with dialysis access (Acute) Lung nodule (Resolved) Ulcer of foot (Resolved) RECOMMENDATIONS: 1. Continue scheduled bronchodilator, steroids and Tamiflu. 2. Okay to discontinue antibiotics from my perspective. 3. Wean supplemental oxygen as tolerated. 4. Continue hemodialysis support per nephrology. 5. Continue Eliquis as ordered. IMPRESSIONS: 1. Acute on chronic hypoxemic respiratory failure, likely secondary to COPD with exacerbation due to influenza B infection The patient's chest imaging on presentation to demonstrate stable bilateral pleural effusions and pulmonary vascular congestion, similar to previous. However, the patient did test positive for influenza B. Recommend continuing supportive measures with scheduled bronchodilators, steroids and Tamiflu as ordered. Antibiotics have been discontinued. Wean supplemental oxygen as tolerated. Encourage incentive spirometer use and mobilize patient as tolerated. Patient is due for hemodialysis today and this would likely improve oxygenation requirements. Will likely wean steroid therapy once patient is on 6 L or less. 2. Paroxysmal atrial fibrillation Continue Eliquis, amiodarone and beta-michael per outpatient regimen. 3. End-stage renal disease on hemodialysis/sick sinus syndrome/pulmonary hypertension/chronic systolic CHF/secondary hyperparathyroidism Comp locates care, management, recovery and prognosis. Continue hemodialysis per nephrology recommendations. This note was generated with [employer] dictation software. It may contain incorrect words, spelling, and punctuation that were not noted in checking the note before signing. Code Visit Inpatient E&M: 75550 Subs Hosp L3
[2018-01-13] MEDS: Acetaminophen 500 MG Tablet 1000 MG PO ×2 (13:30→22:22)
[2018-01-13 15:16] LABS: Pathologist Review Reviewed
[2018-01-13] MEDS: Loratadine 10 MG Tablet 5 MG PO (15:52)
[2018-01-13] MEDS: Isosorbide DN 10 MG Tablet PO (15:53)
[2018-01-13] MEDS: Amiodarone 200 MG Tablet PO (15:53)
[2018-01-13] MEDS: APIXABAN 2.5 MG TABLET PO ×2 (15:53→22:11)
[2018-01-13] MEDS: Metoclopramide 10 MG Tablet 5 MG PO ×2 (15:54→22:11)
[2018-01-13] MEDS: Folic Acid/Vitamin B Comp W-C 1 Capsule 1 CAP PO (15:54)
[2018-01-13] MEDS: guaiFENesin 1,200 MG Tablet 1200 MG PO ×2 (15:54→22:11)
[2018-01-13] MEDS: Pantoprazole Sodium 40 MG Tablet PO ×2 (15:54→22:11)
[2018-01-13] MEDS: Oseltamivir Phosphate 30 MG Capsule PO (15:54)
[2018-01-13] MEDS: Calcium Acetate 667 MG Capsule PO (15:56)
--- NOTE | 2018-01-13 16:34 | DIALYSIS ---
HD x 3.5 hours complete. Tolerated tx well. Ran on 2k bath. UF of 3000ml. Used right chest wall catheter. Catheter closed with heparin per fill volume. See tx ni for more details. Report was given to ERNST Quiros.
[2018-01-13] MEDS: Nortriptyline 25 MG Capsule 50 MG PO (22:11)
[2018-01-13] MEDS: Metoprolol Tartrate 50 MG Tablet PO (22:11)
[2018-01-13] MEDS: hydrOXYzine PAM 25 MG Capsule PO (22:11)
[2018-01-13] MEDS: hydrALAZINE 25 MG Tablet PO (22:11)
[2018-01-14] VITALS (13 sets, daily range): BP systolic 114–138; BP diastolic 94–104; PULSE 65–100; RESP 14–20; TEMP 36.4–36.5; O2SAT 92–98
[2018-01-14] MEDS: oxyCODONE 5 MG Tablet PO (03:45)
[2018-01-14] MEDS: Ipratropium/Albuterol Sulfate 3 ML AMPUL.NEB INHALATION ×3 (04:07→11:01)
[2018-01-14] MEDS: hydrALAZINE 25 MG Tablet PO ×2 (06:08→13:16)
[2018-01-14] MEDS: Metoprolol Tartrate 50 MG Tablet PO ×2 (06:09→13:14)
[2018-01-14 06:24] LABS: Hematocrit 33.6 % (40-54); Hemoglobin 9.9 g/dl (13.0-16.5); Mean Corp Hgb Conc 29.5 g/gl (32-36); Mean Corpuscular Hgb 26.5 pg (27.0-32.0); Mean Corpuscular Volume 89.8 fL (80-94); Mean Platelet Vol. 9.2 fl (6.2-12.0); Platelet Count 269 K/mm3 (150-450); RBC Distribution Width SD 58.7 fl (35.1-43.9); Red Blood Count 3.74 M/mm3 (4.6-6.2)
[2018-01-14 06:36] LABS: Anion Gap 13 (5-15); BUN 27 mg/dL (7-18); BUN/Creat Ratio 9.8 RATIO (10-20); Calcium,Total 9.9 mg/dL (8.5-10.1); Chloride 95 mmol/L (98-107); Creatinine, Serum 2.76 mg/dL (0.70-1.30); EST Glomerular Filtration Rate 25 mL/min (>60); Est Glom Filt Rate - Afr Amer 31 mL/min (>60); Estimated Creatinine Clearance 22.78 ml/min; Glucose 128 mg/dL (74-106); Potassium 4.3 mmol/L (3.5-5.1); Scan Indicated on CBC? Y/N NO; Sodium Level 135 mmol/L (136-145)
--- NOTE | 2018-01-14 07:53 | PCM.PROGNOTE ---
Patient Problems: Active and Suspected Problems (Last Reviewed 01/11/18 @ 03:00 by Reji Combs MD) HCAP (healthcare-associated pneumonia) (Acute) ESRD (end stage renal disease) (Acute) COPD (chronic obstructive pulmonary disease) (Acute) Subjective: Patient did well overnight. No acute issues were reported. Patient reports subjective improvement in overall condition. Patient has been saturating well on 5 L nasal cannula. Patient tolerated hemodialysis yesterday without reported complication. - Physical Exam General: Alert, Oriented x3, Cooperative, No apparent distress, - - Appears older than stated age. Speaking in full sentences. HEENT: Atraumatic, PERRLA, EOMI, Normocephalic, - - No scleral icterus or injection noted. Oral: Moist Mucosa, No Gingival or Mucosal Lesions/ Ulcerations Neck: Supple, No JVD, No Nodes, Trachea Midline Lungs: No rhonchi, No wheeze, No rales, Diminished, - - Symmetric expansion. No dullness to percussion. Cardiovascular: Normal S1, Normal S2, Irregular Rate, Murmur, No rub noted, No Gallop Abdomen: Bowel Sounds Present, Soft, Non Tender, Non-Distended Extremities: No cyanosis, No edema, Capillary Refill Less than 3 Seconds, Clubbing Skin: No rashes, No breakdown Musculoskeletal: No Tenderness to Palpation of Joints or Extremities Lymphatic: No Cervical, Supraclavicular, or Inguinal Adenopathy Neurological: Cranial nerves II-XII grossly intact, Neuro grossly intact, Motor Exam 5/5 strength throughout Psych/Mental Status: Alert and oriented to time, place, person, mood and affect Vital Signs Temp Pulse Resp BP Pulse Ox 36.4 C L 89 14 125/101 H 98 01/14/18 04:44 01/14/18 07:00 01/14/18 04:44 01/14/18 06:09 01/14/18 04:44 Oxygen Flow Rate (L/min) 5 Oxygen Delivery Method Nasal Cannula Weight: 55.2 kg Body Mass Index (BMI) 19.7 Intake and Output for Last 24 Hours 01/12/18 01/13/18 01/14/18 23:59 23:59 23:59 Intake Total 1657.5 / 1657.5 1188 / 1188 Output Total 3000 / 3000 0 / 0 Balance 1657.5 / 1657.5 -1812 / -1812 0 / 0 Microbiology Past 72 Hours 01/11/18 05:20 Blood Culture - Preliminary Blood Culture (Wb) - Right Hand No growth in 48 hours. 01/11/18 05:30 Blood Culture - Preliminary Blood Culture (Wb) - Right Wrist No growth in 48 hours. 01/11/18 03:55 Influenza Types A,B Direct FA (HEYDI) - Final Mucosa - Nose Influenzae B Laboratory Tests Past 24 Hrs 01/13/18 01/14/18 01/14/18 06:35 05:30 05:30 WBC 16.0 H RBC 3.74 L Hgb 9.9 L Hct 33.6 L MCV 89.8 MCH 26.5 L MCHC 29.5 L RDW 18.0 H RDW Differential 58.7 H Plt Count 269 MPV 9.2 Total Counted Not Reportable Differential Comment COMMENT Sodium 135 L Potassium 4.3 Chloride 95 L Carbon Dioxide 27.0 Anion Gap 13 BUN 27 H Creatinine 2.76 H Estim Creat Clear Calc 22.78 Est GFR (MDRD) Af Amer 31 L Est GFR (MDRD) Non-Af 25 L BUN/Creatinine Ratio 9.8 L Glucose 128 H Calcium 9.9 Medical Necessity - Tobacco Use Smoking Status: Former smoker Assessment/Plan All Active Problems (Last Reviewed 01/11/18 @ 03:00 by Reji Combs MD) HCAP (healthcare-associated pneumonia) (Acute) ESRD (end stage renal disease) (Acute) COPD (chronic obstructive pulmonary disease) (Acute) Problem with dialysis access (Acute) Lung nodule (Resolved) Ulcer of foot (Resolved) RECOMMENDATIONS: 1. Continue scheduled bronchodilator and Tamiflu, wean steroids. 2. Increase activity as tolerated 3. Wean supplemental oxygen as tolerated. 4. Continue hemodialysis support per nephrology. 5. Continue Eliquis as ordered. IMPRESSIONS: 1. Acute on chronic hypoxemic respiratory failure, likely secondary to COPD with exacerbation due to influenza B infection The patient's chest imaging on presentation to demonstrate stable bilateral pleural effusions and pulmonary vascular congestion, similar to previous. However, the patient did test positive for influenza B. Recommend continuing supportive measures with scheduled bronchodilators and Tamiflu as ordered. Will wean steroid therapy. Antibiotics have been discontinued. Wean supplemental oxygen as tolerated. Encourage incentive spirometer use and mobilize patient as tolerated. Patient is due for hemodialysis today and this would likely improve oxygenation requirements. Patient can likely be discharged if ambulation oxygen requirements are 6 L or less. 2. Paroxysmal atrial fibrillation Continue Eliquis, amiodarone and beta-michael per outpatient regimen. 3. End-stage renal disease on hemodialysis/sick sinus syndrome/pulmonary hypertension/chronic systolic CHF/secondary hyperparathyroidism Comp locates care, management, recovery and prognosis. Continue hemodialysis per nephrology recommendations. This note was generated with [email or web address] dictation software. It may contain incorrect words, spelling, and punctuation that were not noted in checking the note before signing. Code Visit Inpatient E&M: 13197 Subs Hosp L2
--- NOTE | 2018-01-14 08:13 | CPS ---
PT DECREASED TO 4 LPM...SAT 94%. NURSE AWARE OF CHANGE
[2018-01-14] MEDS: Acetaminophen 500 MG Tablet 1000 MG PO (08:33)
[2018-01-14] MEDS: Calcium Acetate 667 MG Capsule PO ×2 (08:33→11:08)
--- NOTE | 2018-01-14 09:23 | PCM.PN.REN ---
Patient Problems: Active and Suspected Problems (Last Reviewed 01/11/18 @ 03:00 by Reji Combs MD) HCAP (healthcare-associated pneumonia) (Acute) ESRD (end stage renal disease) (Acute) COPD (chronic obstructive pulmonary disease) (Acute) Subjective: Patient said he is feeling better but still SOB especially when he moves around On NC 5 l/m Tolerated HD session well yesterday with 3L UF - Physical Exam General: Alert, Oriented x3 HEENT: Atraumatic Oral: Moist Mucosa Neck: Supple, No JVD, - - Right IJ tunneled HD cath Lungs: No wheeze, Diminished, Short of Breath Abdomen: Bowel Sounds Present, Soft, Non Tender Extremities: - - +1 edema of both feet Neurological: Cranial nerves II-XII grossly intact, Neuro grossly intact Psych/Mental Status: Appropriate Vital Signs Temp Pulse Resp BP Pulse Ox 97.5 F L 87 16 125/101 H 92 01/14/18 04:44 01/14/18 07:17 01/14/18 07:17 01/14/18 06:09 01/14/18 07:17 Oxygen Flow Rate (L/min) 4 Oxygen Delivery Method Nasal Cannula Weight: 55.2 kg Body Mass Index (BMI) 19.7 Intake and Output for Last 24 Hours 01/12/18 01/13/18 01/14/18 23:59 23:59 23:59 Intake Total 1657.5 / 1657.5 1188 / 1188 Output Total 3000 / 3000 0 / 0 Balance 1657.5 / 1657.5 -1812 / -1812 0 / 0 Microbiology Past 72 Hours 01/11/18 05:20 Blood Culture - Preliminary Blood Culture (Wb) - Right Hand No growth in 48 hours. 01/11/18 05:30 Blood Culture - Preliminary Blood Culture (Wb) - Right Wrist No growth in 48 hours. Laboratory Tests Past 24 Hrs 01/14/18 01/14/18 05:30 05:30 WBC 16.0 H RBC 3.74 L Hgb 9.9 L Hct 33.6 L MCV 89.8 MCH 26.5 L MCHC 29.5 L RDW 18.0 H RDW Differential 58.7 H Plt Count 269 MPV 9.2 Sodium 135 L Potassium 4.3 Chloride 95 L Carbon Dioxide 27.0 Anion Gap 13 BUN 27 H Creatinine 2.76 H Estim Creat Clear Calc 22.78 Est GFR (MDRD) Af Amer 31 L Est GFR (MDRD) Non-Af 25 L BUN/Creatinine Ratio 9.8 L Glucose 128 H Calcium 9.9 Medical Necessity - Tobacco Use Smoking Status: Former smoker Assessment/Plan All Active Problems (Last Reviewed 01/11/18 @ 03:00 by Reji Combs MD) HCAP (healthcare-associated pneumonia) (Acute) ESRD (end stage renal disease) (Acute) COPD (chronic obstructive pulmonary disease) (Acute) Problem with dialysis access (Acute) Lung nodule (Resolved) Ulcer of foot (Resolved) 1 ESRD On MWF. Patient goes to [facility] HD unit. HD access is right IJ TC Last HD session 01/13 with 3L UF No need of HD today Next session 01/15 URR > 65% Renal deit 2-HTN: slightly elevated due to steroid. Continue the same BP meds. Should imprve tapering steroid dose. Continue UF with HD sessions 3- ESRD related BMD: continue Phoslo as P binder. 4- Anemia:hgb is at goal 5- Acute hypoxemic RF due to pneumonia/Infleunza B infection and vascular congestion. Improving Pneumonia/Flu treatment as per the primary service Continue UF 2-3 L with HD sessions 02 support to Keep S02 > 92% Renal team will continue to follow Kaitlin Lei MD
[2018-01-14] MEDS: Loratadine 10 MG Tablet 5 MG PO (11:01)
[2018-01-14] MEDS: guaiFENesin 1,200 MG Tablet 1200 MG PO (11:01)
[2018-01-14] MEDS: APIXABAN 2.5 MG TABLET PO (11:01)
[2018-01-14] MEDS: Metoclopramide 10 MG Tablet 5 MG PO (11:02)
[2018-01-14] MEDS: Folic Acid/Vitamin B Comp W-C 1 Capsule 1 CAP PO (11:02)
[2018-01-14] MEDS: Isosorbide DN 10 MG Tablet PO (11:02)
[2018-01-14] MEDS: Pantoprazole Sodium 40 MG Tablet PO (11:02)
[2018-01-14] MEDS: Oseltamivir Phosphate 30 MG Capsule PO (11:02)
[2018-01-14] MEDS: Amiodarone 200 MG Tablet PO (11:15)
--- NOTE | 2018-01-14 11:49 | PCM.EXTCARCO ---
- Diet 01/11/18 22:40 Diet: Cardiac/Low Cholesterol Type of Dietary Supplement:: add kefir bid Is pt able to select menu?: No - Routine Orders/Code Status Enema Type: Fleetz Enema Frequency: Daily PRN Suppository Type: Dulcolax 10mg Suppository Frequency: Daily PRN O2 Liters per Minute: 4-6 O2 Frequency: Continuous Keep PO Greater than or Equal to (%): 90 Routine Lab Work: CBC, BMP, - - Q Week Code Status: Full Code - Wound(s) B/L arms Wound Type: Abrasion Top of right foot Wound Type: Stasis Ulcer Right sided chest area Wound Type: Surgical Incision - Suggestions for Active Care Change Position every (hours): 2 Times a day to sit in chair: 3 - Therapies Physical Therapy: Eval and Treat Occupational Therapy: Eval and Treat - Problem/Diagnosis (1) HCAP (healthcare-associated pneumonia) Status: Ruled-out Current Visit: Yes (2) ESRD (end stage renal disease) Status: Chronic Current Visit: Yes (3) COPD (chronic obstructive pulmonary disease) Status: Acute Current Visit: Yes (4) ICD extraction Status: Chronic Comment: MSSA Bacteremia 08/2017 @[facility] Current Visit: No (5) Lung nodule Status: Resolved Current Visit: No (6) Atrial fibrillation Status: Chronic Current Visit: No (7) custodial current use of anticoagulant Status: Chronic Current Visit: No (8) Elevated troponin Status: Chronic Comment: not trending Current Visit: No (9) Mitral insufficiency Status: Chronic Current Visit: No (10) Implantable cardioverter-defibrillator (ICD) in situ Status: Chronic Comment: implanted in 12/07/2015 at [facility] Current Visit: No (11) Sick sinus syndrome Status: Chronic Comment: S/P dual-chamber Pacemaker/ICD Current Visit: No (12) ESRD (end stage renal disease) Status: Chronic Comment: on HD Current Visit: No (13) HTN (hypertension) Status: Chronic Current Visit: No (14) Pulmonary HTN Status: Chronic Current Visit: No (15) Anemia with chronic illness Status: Chronic Comment: ESRD Current Visit: No (16) Non-compliance Status: Chronic Comment: non-compliant with meds and with dialysis Current Visit: No (17) Non-compliance with renal dialysis Status: Chronic Current Visit: No (18) Respiratory failure with hypoxia Status: Chronic Current Visit: No (19) Bilateral pleural effusion Status: Chronic Current Visit: No (20) Cardiomyopathy Status: Chronic Current Visit: No (21) CHF (congestive heart failure) Status: Chronic Comment: EF 30% Current Visit: No (22) Coronary artery arteriosclerosis Status: Chronic Current Visit: No (23) 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 Current Visit: No (24) COPD (chronic obstructive pulmonary disease) Status: Chronic Current Visit: No (25) History of nephrectomy Status: Chronic Current Visit: No (26) History of kidney cancer Status: Chronic Current Visit: No (27) Chest pain Status: Chronic Current Visit: No (28) Influenza B Status: Acute Current Visit: Yes - Allergies/Procedures Done in Hospital Allergies/Adverse Reactions: Allergies onion Adverse Reaction (Severe, Verified 01/10/18 20:47) Unknown Procedures: Dialysis - Type of Care/Length of Stay Estimated LOS: Convalescent Care Less Than 30 days Type of Care Needed: Skilled Rehab Potential: Fair Prognosis: Fair - Additional Orders/Day of Discharge H&P will serve as current which was dated: 01/11/18 Day of Discharge: 01/14/18 - Dietary and Speech Recommendations Dietitian Recommendations/Changes: Suggest advance diet as tolerated to Renal/70 gm protein diet. Will d/c ensure enlive on medpass & add nepro with meals. - Follow Up Care Primary Care Physician: Conner Lopez MD [Primary Care Provider] - Please follow up with your Primary Care Physician in: 1 Week Please Follow Up With: Anaya Abarca NP-C When: As scheduled 02/13/2018 Please Follow Up With: Dialysis, Nephrology When: As scheduled
--- NOTE | 2018-01-14 12:00 | NURSING ---
wound photo: right foot
--- NOTE | 2018-01-14 12:24 | CASEMGMT ---
Received insurance authorization for patient to return to [facility]. SARAHY faxed orders to [place]. Called [facility] and arranged for patient to get picked up between 2 and 2:30p via wheelchair van. SARAHY notified patient and RN. RN was going to be calling so she will let her know. 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 Plan: d/c back to [facility] under skilled level of care. [facility] transported patient via wc van. Rose NAVA MSW
--- NOTE | 2018-01-14 12:26 | PCM.DC.SUM ---
<Edith Lewis - Last Filed: 01/14/18 12:31> Discharge Date and Diagnosis Date of Admission: 01/11/18 Date of Discharge: 01/14/18 - Primary Discharge Diagnosis Active and Suspected Problems (Last Reviewed 01/11/18 @ 03:00 by Reji Combs MD) 1. Acute on chronic hypoxic respiratory failure secondary to exacerbation of COPD secondary to acute influenza B 2. Chronic pleural effusions, stable 3. Chronic elevated troponin 4. 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) Elevated troponin (Chronic) not trending Mitral insufficiency (Chronic) Implantable cardioverter-defibrillator (ICD) in situ (Chronic) implanted in 12/07/2015 at [facility] Sick sinus syndrome (Chronic) S/P dual-chamber Pacemaker/ICD ESRD (end stage renal disease) (Chronic) on HD HTN (hypertension) (Chronic) Pulmonary HTN (Chronic) Anemia with chronic illness (Chronic) ESRD Non-compliance (Chronic) non-compliant with meds and with dialysis Non-compliance with renal dialysis (Chronic) Respiratory failure with hypoxia (Chronic) Bilateral pleural effusion (Chronic) Cardiomyopathy (Chronic) CHF (congestive heart failure) (Chronic) EF 30% Coronary artery arteriosclerosis (Chronic) 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 Bilateral pleural effusion. Right basilar infiltrate is stable. No significant interval changes. Electronically Signed: Ricky Alvarado DO at 8:06 EDT Tel [phone], Service support , Consultations 01/14/18 11:55 Consult: Onc/Wound/architectural intern Routine Comment: Reason for Consult:: Right foot sore/ right side mid chest s/p chest tube Dr. Lei- Nephrology Dr. Kunz- Pulmonary Operations: None Procedures: None Summary of Care Provided: Patient is a 57-year-old male admitted 01/11/2018 due to worsening shortness of breath. Patient has a past medical history of chronic atrial fibrillation, chronic elevated troponin, chronic chest pain, COPD, chronic systolic CHF, cardiomyopathy, chronic hypoxic respiratory failure, end-stage renal disease on hemodialysis, hypertension, anemia of chronic disease, pulmonary hypertension, sick sinus syndrome status post dual chamber pacemaker/ICD. 1. Acute on chronic hypoxic respiratory failure, COPD exacerbation secondary to acute influenza B-rapid flu positive for influenza B. Continue Tamiflu for total of 5 doses, last dose tomorrow, 01/15/18. Patient received IV Solu-Medrol during admission. Transition to oral prednisone taper at discharge. Patient wears supplemental oxygen chronically. Continue supplement oxygen to maintain O2 at or above 90%. Pneumonia ruled out and antibiotics discontinued during admission. 2. Chronic pleural effusions-chest x-ray admission with cardiomegaly with pulmonary vascular congestion. Bilateral pleural effusions. Right basilar infiltrate stable. No significant interval changes. Patient had thoracentesis 11/29/2017 during recent admission which confirmed transudate effusions. 3. Paroxysmal atrial fibrillation-Continue home amiodarone, metoprolol, Eliquis regimen. 4. Chronic elevated troponin-recent stress test 10/24/2017 without evidence of ischemia. LVEF 36%. Troponin 0.07 which is lower than prior admissions. 5. Chronic systolic CHF/cardiomyopathy/sick sinus syndrome-status post AICD removal secondary to MSSA bacteremia. Continue home lisinopril, metoprolol. 6. End-stage renal disease-on hemodialysis Saturday, Saturday, Saturday. Follows with Dr. Balbuena. Nephrology consulted. Left upper extremity fistula reported to be nonfunctioning. Patient has right chest temporary dialysis catheter. Continue dialysis per nephrology. 7. Anemia of chronic disease-stable. 8. Hypertension-continue home lisinopril, metoprolol regimen. 9. GERD-continue home omeprazole regimen. General: Oriented x3, Cooperative, - - Drowsy HEENT: Atraumatic, PERRLA, EOMI, Normocephalic Oral: Dry Mucosa Neck: Supple, No JVD, Negative Carotid Bruits Lungs: Clear to auscultation, Diminished Cardiovascular: Murmur, - - Atrial fibrillation, rate controlled. Abdomen: Bowel Sounds Present, Soft, Non Tender, Non-Distended Extremities: No clubbing, No cyanosis, No edema, Capillary Refill Less than 3 Seconds Skin: No rashes, No breakdown Musculoskeletal: No Tenderness to Palpation of Joints or Extremities Neurological: Cranial nerves II-XII grossly intact, Neuro grossly intact Psych/Mental Status: Normal Affect, Appropriate Patient seen exam prior to discharge. Physical assessment as noted above. Patient is stable for discharge to SNF. This patient was seen by BIANCA Madrid under the supervision of Dr. Rojas. Home Medications: Medications to take at Discharge Acetaminophen [Tylenol] 1,000 mg PO Q4H PRN PRN 05/17/15 Calcium Acetate [Phoslo Gel Cap] 667 mg PO TIDCM 05/17/15 Apixaban [Eliquis] 2.5 mg PO BID 11/26/17 Hydroxyzine Pamoate 25 mg PO QHS 11/28/17 Amiodarone HCl [Cordarone] 200 mg PO DAILY tab 12/01/17 Metoprolol Tartrate [Lopressor (beta michael)] 50 mg PO TID 12/09/17 Renavite 1 tab PO DAILY 12/09/17 Isosorbide Dinitrate 10 mg PO DAILY 01/10/18 Loratadine 5 mg PO DAILY 01/10/18 Metoclopramide [Reglan] 5 mg PO BID 01/10/18 Nortriptyline HCl 50 mg PO QHS 01/10/18 Omeprazole 40 mg PO BID 01/10/18 hydrALAZINE [Apresoline] 25 mg PO TID 01/10/18 Albuterol Aerosols [Ventolin Aerosols] 2.5 mg INHALATION Q2H PRN PRN #30 vial.neb. 01/14/18 Ipratropium/Albuterol Sulfate [Duoneb] 3 ml INHALATION Q4H.RT ampul.neb 01/14/18 Oseltamivir Phosphate [Tamiflu] 30 mg PO DAILY capsule 01/14/18 Prednisone See Taper PO DAILY #30 tablet 01/14/18 Following Prescrptions Were Given to Patient: Albuterol Aerosols [Ventolin Aerosols] 2.5 mg INHALATION Q2H PRN PRN #30 vial.neb. PRN Reason: Shortness Of Breath Prednisone See Taper PO DAILY #30 tablet Primary Care Physician: Conner Lopez MD [Primary Care Provider] - Please follow up with your Primary Care Physician in: 1 Week Please Follow Up With: Anaya Abarca NP-C When: As scheduled 02/13/2018 Please Follow Up With: Dialysis, Nephrology When: As scheduled Disposition: Jail facility Minutes spent on discharge:: 35 Patient Condition:: Stable Medical Necessity - Tobacco Use Smoking Status: Former smoker Meaningful Use Info Meaningful Use Diagnoses (Choose all that apply): None applicable <Familia Rojas - Last Filed: 01/14/18 13:21> Discharge Date and Diagnosis - Secondary Discharge Diagnosis Chronic Problems (Last Reviewed 01/11/18 @ 03:00 by Reji Combs MD) ESRD (end stage renal disease) (Chronic) ICD extraction (Chronic) MSSA Bacteremia 08/2017 @[facility] 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) Elevated troponin (Chronic) not trending Mitral insufficiency (Chronic) Implantable cardioverter-defibrillator (ICD) in situ (Chronic) implanted in 12/07/2015 at [facility] Sick sinus syndrome (Chronic) S/P dual-chamber Pacemaker/ICD ESRD (end stage renal disease) (Chronic) on HD HTN (hypertension) (Chronic) Pulmonary HTN (Chronic) Anemia with chronic illness (Chronic) ESRD Non-compliance (Chronic) non-compliant with meds and with dialysis Non-compliance with renal dialysis (Chronic) Respiratory failure with hypoxia (Chronic) Bilateral pleural effusion (Chronic) Cardiomyopathy (Chronic) CHF (congestive heart failure) (Chronic) EF 30% Coronary artery arteriosclerosis (Chronic) 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 Rojas I personally examined the patient and reviewed the chart. I agree with the above. He has many significant comorbidities complicating care. He will complete his last dose of tamiflu tomorrow that was renally dosed. He also received dialysis yesterday so he will be due tomorrow. Code Visit Inpatient E&M: 77497 Disch Hosp
--- NOTE | 2018-01-14 14:49 | NURSING ---
Report given to EVELIN Londono at [facility].
== END 2018-01-14 15:12 | disposition skilled nursing facility (03) | DRG 193 ==
LOC: ED 23:41 → PCU 01-11 00:20
PROVIDERS: Internal Medicine Critical Care Medicine; Nurse Practitioner Family; Admitting Provider Internal Medicine; Emergency Provider Emergency Medicine; Family Provider Family Medicine; PCP Family Medicine; Visit Provider Family Medicine
DX: J10.1 Influenza due to other identified influenza virus with other respiratory manifestations (principal); J96.21 Acute and chronic respiratory failure with hypoxia; N18.6 End stage renal disease; J44.1 Chronic obstructive pulmonary disease with (acute) exacerbation; I13.2 Hypertensive heart and chronic kidney disease with heart failure and with stage 5 chronic kidney disease, or end stage renal disease; I50.22 Chronic systolic (congestive) heart failure; I42.9 Cardiomyopathy, unspecified; R64 Cachexia; Z68.1 Body mass index [BMI] 19.9 or less, adult; N25.81 Secondary hyperparathyroidism of renal origin; J90 Pleural effusion, not elsewhere classified; Z99.81 Dependence on supplemental oxygen; Z90.5 Acquired absence of kidney; Z85.528 Personal history of other malignant neoplasm of kidney; Z87.891 Personal history of nicotine dependence; I48.2 Chronic atrial fibrillation; R74.8 Abnormal levels of other serum enzymes; Z99.2 Dependence on renal dialysis; K21.9 Gastro-esophageal reflux disease without esophagitis; D63.8 Anemia in other chronic diseases classified elsewhere; I27.20 Pulmonary hypertension, unspecified; Z79.01 Long term (current) use of anticoagulants
CPT/HCPCS: 36415; 36600; 71045; 80048; 82803; 83605; 84484; 85025; 85027; 87040; 87804; 90937; 93005; 94002; 94003; 94640; 97116; 97163; 97166; 97530; 97802; 99285; J7030; J7040; J7050; A4216; G0257; J2405

== ENCOUNTER → 2018-01-16 13:01 | Outpatient (CLI) | payer MEDICARE, SELFPAY ==
--- NOTE | 2018-01-16 13:39 | CPS ---
Patient came in for Complete Pulmonary Function testing, patient states he has just been recently discharged from the hospital and is still very weak and not feeling well. Patient came to testing on 5 lpm nasal cannula and when he moved 2 steps from wheel chair to PFT chair for testing his SpO2 decreased <87% on 5 lpm nasal cannula. Test cancelled due to patient not being able to be off oxygen any amount of time for proper testing.
== END ==
PROVIDERS: Family Provider Family Medicine; PCP Family Medicine; Visit Provider Internal Medicine Critical Care Medicine
DX: R06.09 Other forms of dyspnea (principal)

== ENCOUNTER 2018-01-18 23:30 | Inpatient (IN) | payer MEDICARE, SELFPAY ==
[2018-01-18 23:31] VITALS: PULSE 101; RESP 20; TEMP 36.8; O2SAT 86; BMI 17.9
[2018-01-18 23:39] VITALS: O2SAT 86
[2018-01-18 23:53] VITALS: O2SAT 96
[2018-01-18 23:56] LABS: Absolute Lymphocyte Count 1.12 X10^3/ul (0.83-4.51); Absolute Neutrophil Count 21.8 X10^3/uL (2.0-7.7); Basophil# 0.01 X10^3/uL; Hematocrit 33.6 % (40-54); Hemoglobin 9.9 g/dl (13.0-16.5); Lymphocyte # 1.12 X10^3/ul (4.0); Lymphocyte % 4.9 % (19-41); Mean Corp Hgb Conc 29.5 g/gl (32-36); Mean Corpuscular Hgb 26.9 pg (27.0-32.0); Mean Corpuscular Volume 91.3 fL (80-94); Mean Platelet Vol. 9.2 fl (6.2-12.0); Monocyte# 0.07 X10^3/uL; Monocyte% 0.3 % (0-10); Neutrophil % 94.5 % (47-70); Platelet Count 302 K/mm3 (150-450); RBC Distribution Width CV 19.9 % (11.6-14.6); RBC Distribution Width SD 60.8 fl (35.1-43.9); Red Blood Count 3.68 M/mm3 (4.6-6.2); White Blood Count 23.1 K/mm3 (4.4-11.0)
[2018-01-19] VITALS (33 sets, daily range): BP systolic 95–148; BP diastolic 66–118; PULSE 65–108; RESP 9–25; TEMP 36.2–36.7; O2SAT 91–100; BMI 17.9; BMI 20.2
[2018-01-19] LABS: Differential Indicated SCAN CRITERIA MET; POSITIVE COUNT NO; POSITIVE DIFFERENTIAL YES; POSITIVE MORPHOLOGY NO
[2018-01-19 00:07] LABS: International Normalized Ratio 1.3; Prothrombin Time (Protime)PT. 16.5 SECONDS (11.7-14.9)
[2018-01-19 00:08] LABS: Partial Thromboplast Time 35.9 Seconds (24.1-36.2)
[2018-01-19 00:11] LABS: Allen Test POS; Base Excess 6 mmol/L (-2 to +2); Bicarbonate 31.4 mmol/L (22-26); Blood Gas Specimen Type ART; O2 Delivery Device Nasal Can; PO2 55 mmHG (75-100); SITE L Radial; SO2 86 % (95-99); Total Carbon Dioxide 33 mmol/L; pCO2 56.2 mmHg (35-45); pH 7.36 (7.35-7.45)
[2018-01-19] MEDS: Ipratropium/Albuterol Sulfate 3 ML AMPUL.NEB INHALATION ×6 (00:16→23:56)
[2018-01-19 00:18] LABS: Differential Comment SCANNED; Hypochromasia 2+; Microcytosis 1+; Target Cells RARE
[2018-01-19 00:19] LABS: ALB/GLOB Ratio 0.4 RATIO (0.9-2.4); AST(SGOT) 31 U/L (15-37); Alanine Aminotransfer ALT/SGPT 19 U/L (16-61); Albumin, Serum 1.8 g/dL (3.2-5.0); Alkaline Phosphatase 185 U/L (45-117); Anion Gap 12 (5-15); Anisocytosis 2+; BUN 35 mg/dL (7-18); BUN/Creat Ratio 9.9 RATIO (10-20); Calcium,Total 9.2 mg/dL (8.5-10.1); Chloride 94 mmol/L (98-107); Creatinine, Serum 3.52 mg/dL (0.70-1.30); EST Glomerular Filtration Rate 19 mL/min (>60); Est Glom Filt Rate - Afr Amer 23 mL/min (>60); Estimated Creatinine Clearance 17.31 ml/min; Globulin 4.4 g/dL (2.2-4.2); Glucose 134 mg/dL (74-106); Potassium 4.5 mmol/L (3.5-5.1); Protein, Total 6.2 g/dL (6.4-8.2); Sodium Level 128 mmol/L (136-145)
[2018-01-19 00:20] LABS: Lactic Acid 1.6 mmol/L (0.4-2.0)
[2018-01-19] MEDS: MethylPREDNISolone 125 MG/2 ML Vial IV (00:37)
--- NOTE | 2018-01-19 01:02 | ED.RN ---
PT REQUESTING A BREAK FROM THE BIPAP. DR HANSON AND RESPIRATORY THERAPY NOTIFIED OF THE SAME. PT PLACED ON NRB
[2018-01-19] MEDS: Piperacil/Tazobactam 3.375 GM/50 ML ML IV ×3 (01:04→22:38)
--- NOTE | 2018-01-19 01:11 | ED.VISSUMM ---
- ER Visit Summary Date of Service: 01/19/18 Chief Complaint: Shortness of breath History of Present Illness: The patient is a 57 M with shortness of breath today. The patient has a history of COPD, pulmonary hypertension, and end-stage renal disease. He is on 4 L of oxygen at baseline. He was recently admitted for bilateral pleural effusions and influenza B. He completed his course of Tamiflu. Today, he was having shortness of breath since this evening. He was noted to be hypoxic and his nursing facility in the 70s. EMS was called. He received 3 breathing treatments and was started on a nonrebreather mask. On arrival, he does not feel improved. He is also reporting some associated chest pain. He has a history of A. fib, hypertension, CHF, and cardiomyopathy. He does take Eliquis. He is a former smoker. He is full code. Physical Examination: Afebrile and vital signs unremarkable except for a heart rate of 101 and a respiratory rate of 20. His pulse ox is 86% on a nonrebreather. He is slightly somnolent but arouses to voice. He is completely oriented. Lungs are diminished throughout all urban. Heart irregularly irregular. Abdomen soft and nontender. Lower extremities show trace edema. Patient has a Vas-Cath in his right chest. Test Results: EKG showed atrial fibrillation at a rate of [address] and T-wave changes. No acute abnormalities. White count 23 and hemoglobin 9.9, both stable. Sodium 128, chloride 94, glucose 134, BUN 35, and creatinine 3.5. Alkaline phosphatase 185. PT and PTT unremarkable. Troponin indeterminate, at baseline. Lactate 1.6. ABG showed a pH of 7.35, CO2 56, O2 55. Blood cultures pending. Chest x-ray showed bilateral pleural effusions and cardiomegaly with vascular congestion, stable. Emergency Department Course and Treatment: Patient was seen immediately in the emergency department. IV access was obtained. He was placed on a monitor and a nonrebreather mask. He did receive a small bolus of normal saline, 500 mL's. He was treated with Solu-Medrol and a DuoNeb treatment. Workup initiated. The patient continued to be somnolent, but arouses to voice. Completely oriented. No confusion noted. No distress noted. When he would sleep, his oxygen would drop down into the 70s. This was both with a nasal cannula and a nonrebreather mask, so BiPAP was initiated, 05/01. Patient did well on BiPAP. His vitals remained stable. Mental status remained stable. He was treated with Zosyn and vancomycin for respiratory coverage. Patient was discussed with the first coat operator and hospitalist for admission for further care. Treatment Plan: As above Disposition: Admission Impression: 1. Acute respiratory failure hypoxic 2. End-stage renal disease 3. COPD This note was generated with [employer] dictation software. It may contain incorrect words, spelling, and punctuation that were not noted in review of the chart prior to signing ED Disposition - Plan for ED Patient: Chief Complaint: Shortness of Breath Referrals: Conner Lopez MD [Primary Care Provider] -
--- NOTE | 2018-01-19 01:17 | ED.DCSUM_ITS ---
- ER Visit Summary Date of Service: 01/19/18 Chief Complaint: Shortness of breath History of Present Illness: The patient is a 57 M with shortness of breath today. The patient has a history of COPD, pulmonary hypertension, and end- stage renal disease. He is on 4 L of oxygen at baseline. He was recently admitted for bilateral pleural effusions and influenza B. He completed his course of Tamiflu. Today, he was having shortness of breath since this evening. He was noted to be hypoxic and his nursing facility in the 70s. EMS was called. He received 3 breathing treatments and was started on a nonrebreather mask. On arrival, he does not feel improved. He is also reporting some associated chest pain. He has a history of A. fib, hypertension , CHF, and cardiomyopathy. He does take Eliquis. He is a former smoker. He is full code. Physical Examination: Afebrile and vital signs unremarkable except for a heart rate of 101 and a respiratory rate of 20. His pulse ox is 86% on a nonrebreather. He is slightly somnolent but arouses to voice. He is completely oriented. Lungs are diminished throughout all urban. Heart irregularly irregular. Abdomen soft and nontender. Lower extremities show trace edema. Patient has a Vas-Cath in his right chest. Test Results: EKG showed atrial fibrillation at a rate of [address] and T-wave changes. No acute abnormalities. White count 23 and hemoglobin 9.9, both stable. Sodium 128, chloride 94, glucose 134, BUN 35, and creatinine 3.5. Alkaline phosphatase 185. PT and PTT unremarkable. Troponin indeterminate, at baseline. Lactate 1.6. ABG showed a pH of 7.35, CO2 56, O2 55. Blood cultures pending. Chest x-ray showed bilateral pleural effusions and cardiomegaly with vascular congestion, stable. Emergency Department Course and Treatment: Patient was seen immediately in the emergency department. IV access was obtained. He was placed on a monitor and a nonrebreather mask. He did receive a small bolus of normal saline, 500 mL's. He was treated with Solu-Medrol and a DuoNeb treatment. Workup initiated. The patient continued to be somnolent, but arouses to voice. Completely oriented. No confusion noted. No distress noted. When he would sleep, his oxygen would drop down into the 70s. This was both with a nasal cannula and a nonrebreather mask, so BiPAP was initiated, 05/01. Patient did well on BiPAP. His vitals remained stable. Mental status remained stable. He was treated with Zosyn and vancomycin for respiratory coverage. Patient was discussed with the labor relations officer and hospitalist for admission for further care. Treatment Plan: As above Disposition: Admission Impression: 1. Acute respiratory failure hypoxic 2. End-stage renal disease 3. COPD This note was generated with [employer] dictation software. It may contain incorrect words, spelling, and punctuation that were not noted in review of the chart prior to signing ED Disposition - Plan for ED Patient: Chief Complaint: Shortness of Breath Referrals: Conner Lopez MD [Primary Care Provider] -
--- NOTE | 2018-01-19 01:19 | ED.RN ---
PT REQUESTING TO BE PLACED BACK ON BIPAP
--- NOTE | 2018-01-19 01:22 | NURSING ---
Notified ER of readiness for pt to room ICU3.
--- NOTE | 2018-01-19 01:35 | PCM.HP.STD ---
Problem List (1) Acute on chronic respiratory failure with hypoxia and hypercapnia Status: Acute (2) COPD exacerbation Status: Acute (3) HCAP (healthcare-associated pneumonia) Status: Inactive (4) ESRD (end stage renal disease) Status: Chronic (5) COPD (chronic obstructive pulmonary disease) Status: Acute (6) Influenza B Status: Resolved (7) ICD extraction Status: Chronic Comment: MSSA Bacteremia 08/2017 @[facility] (8) Lung nodule Status: Resolved (9) Atrial fibrillation Status: Chronic Qualifiers: Atrial fibrillation type: paroxysmal (10) [facility] current use of anticoagulant Status: Chronic (11) Elevated troponin Status: Chronic Comment: not trending (12) Mitral insufficiency Status: Chronic (13) Implantable cardioverter-defibrillator (ICD) in situ Status: Chronic Comment: implanted in 12/07/2015 at [facility] (14) Sick sinus syndrome Status: Chronic Comment: S/P dual-chamber Pacemaker/ICD (15) ESRD (end stage renal disease) Status: Chronic Comment: on HD (16) HTN (hypertension) Status: Chronic Qualifiers: (17) Pulmonary HTN Status: Chronic (18) Anemia with chronic illness Status: Chronic Comment: ESRD (19) Non-compliance Status: Chronic Comment: non-compliant with meds and with dialysis (20) Non-compliance with renal dialysis Status: Chronic (21) Respiratory failure with hypoxia Status: Chronic Qualifiers: (22) Bilateral pleural effusion Status: Chronic (23) Cardiomyopathy Status: Chronic Qualifiers: (24) CHF (congestive heart failure) Status: Chronic Comment: EF 30% (25) Coronary artery arteriosclerosis Status: Chronic (26) 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 (27) COPD (chronic obstructive pulmonary disease) Status: Chronic (28) History of nephrectomy Status: Chronic (29) History of kidney cancer Status: Chronic (30) Chest pain Status: Chronic Qualifiers: History of Present Illness Date of Admission: 01/19/18 Chief Complaint: Shortness of breath for about 2 weeks The patient is a 57 year old M with multiple comorbidities as listed above including pulmonary hypertension, COPD, end-stage renal disease on hemodialysis was recently discharged on 01/14/2018 after management of acute on chronic hypoxic respiratory failure secondary to COPD exacerbation and acute influenza B. Patient was discharged to SNF. Patient is very short of breath, tachypneic, mild somnolent and lethargic therefore detailed history and review of system is not possible now. Patient denies fever, chills worsening of baseline cough much that he was short of breath for last 2 weeks is got worse for 1 day. As per senior care documentation, his pulse ox was 92% and 5 neutral oxygen, respiratory rate 20/min, temperature 97, pulse 83. Patient is on baseline 4 L of oxygen. Chest x-ray shows bilateral stable pleural effusion with bibasilar atelectasis, therefore bibasilar consolidation cannot be excluded. Discharge summary reviewed and patient completed Tamiflu. He was discharged on tapering dose of prednisone, bronchodilator along with his chronic medications. EKG shows A. fib with nonspecific T inversion in V5 V6. 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) Elevated troponin (Chronic) not trending Mitral insufficiency (Chronic) Implantable cardioverter-defibrillator (ICD) in situ (Chronic) implanted in 12/07/2015 at [facility] Sick sinus syndrome (Chronic) S/P dual-chamber Pacemaker/ICD ESRD (end stage renal disease) (Chronic) on HD HTN (hypertension) (Chronic) Pulmonary HTN (Chronic) Anemia with chronic illness (Chronic) ESRD Non-compliance (Chronic) non-compliant with meds and with dialysis Non-compliance with renal dialysis (Chronic) Respiratory failure with hypoxia (Chronic) Bilateral pleural effusion (Chronic) Cardiomyopathy (Chronic) CHF (congestive heart failure) (Chronic) EF 30% Coronary artery arteriosclerosis (Chronic) 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 COPD (chronic obstructive pulmonary disease) (Chronic) History of nephrectomy (Chronic) History of kidney cancer (Chronic) Chest pain (Chronic) Medical History: Medical History (Last Reviewed 01/11/18 @ 03:00 by Reji Combs MD) Atrial fibrillation (Chronic) I48.91 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 (Chronic) Z79.01 ESRD (end stage renal disease) (Chronic) N18.6 on HD HTN (hypertension) (Chronic) I10 Pulmonary HTN (Chronic) I27.2 Anemia with chronic illness (Chronic) D63.8 ESRD Non-compliance (Chronic) Z91.19 non-compliant with meds and with dialysis Non-compliance with renal dialysis (Chronic) Z91.15 Respiratory failure with hypoxia (Chronic) J96.91 Bilateral pleural effusion (Chronic) J90 Cardiomyopathy (Chronic) I42.9 CHF (congestive heart failure) (Chronic) I50.9 EF 30% Coronary artery arteriosclerosis (Chronic) I25.10 Parathyroid disease (Chronic) E21.5 due to ESRD COPD (chronic obstructive pulmonary disease) (Chronic) J44.9 History of kidney cancer (Chronic) Z85.528 Chest pain (Chronic) R07.9 Ulcer of foot (Resolved) L97.509 Allergies onion Adverse Reaction (Severe, Verified 01/10/18 20:47) Unknown Home Medications: Ambulatory Orders Medication Instructions Recorded Acetaminophen [Tylenol] 1,000 mg PO Q4H PRN PRN 05/17/15 Calcium Acetate [Phoslo Gel Cap] 667 mg PO TIDCM 05/17/15 Apixaban [Eliquis] 2.5 mg PO BID 11/26/17 Hydroxyzine Pamoate 25 mg PO QHS 11/28/17 Amiodarone HCl [Cordarone] 200 mg PO DAILY tab 12/01/17 Metoprolol Tartrate [Lopressor 50 mg PO TID 12/09/17 (beta michael)] Renavite 1 tab PO DAILY 12/09/17 Isosorbide Dinitrate 10 mg PO DAILY 01/10/18 Loratadine 5 mg PO DAILY 01/10/18 Metoclopramide [Reglan] 5 mg PO BID 01/10/18 Nortriptyline HCl 50 mg PO QHS 01/10/18 Omeprazole 40 mg PO BID 01/10/18 hydrALAZINE [Apresoline] 25 mg PO TID 01/10/18 Albuterol Aerosols [Ventolin 2.5 mg INHALATION Q2H PRN PRN #30 01/14/18 Aerosols] vial.neb. Ipratropium/Albuterol Sulfate 3 ml INHALATION Q4H.RT ampul.neb 01/14/18 [Duoneb] Oseltamivir Phosphate [Tamiflu] 30 mg PO DAILY capsule 01/14/18 Prednisone See Taper PO DAILY #30 tablet 01/14/18 Surgical History: Surgical History (Last Reviewed 01/11/18 @ 03:01 by Reji Combs MD) History of nephrectomy (Chronic) Z98.890, Z90.5 Surgical History: - - AVF placement PAIGE, left nephrectomy for cancer, aicd in Smoking Status: Former smoker - *Family History Maternal History Items: No pertinent history, - - Patient's mother at age of 73 with a history of end-stage renal failure. Paternal History Items: Renal Disease, - - The patient's mother at age of 69 with a history of kidney cancer. Review of Systems Unable to obtain accurate/complete ROS d/t: Patient is lethargic and somnolent and respiratory failure VTE Information - Inpt Only VTE Present on Admission: No VTE Mechan Device Prophylaxis: None VTE Pharm Prophylaxis ordered?: Yes Patient Problems: Active and Suspected Problems (Last Reviewed 01/11/18 @ 03:00 by Reji Combs MD) Acute on chronic respiratory failure with hypoxia and hypercapnia (Acute) COPD exacerbation (Acute) - Physical Exam General: Disoriented, Lethargic HEENT: Atraumatic, PERRLA, EOMI, Normocephalic Oral: Dry Mucosa Neck: Supple, No JVD, Negative Carotid Bruits Lungs: Diminished - Posterior half of both lungs. Bilateral pleural effusion, Tachypneic, Using Accessory Muscles, Wheezes Cardiovascular: Normal S1, Normal S2, No murmurs, Irregular Rate Abdomen: Bowel Sounds Present, Soft, Non Tender, Non-Distended Extremities: Capillary Refill Less than 3 Seconds, Edema Skin: No rashes, No breakdown Musculoskeletal: No Tenderness to Palpation of Joints or Extremities, Arthritic Changes, Muscle Wasting Neurological: Cranial nerves II-XII grossly intact Psych/Mental Status: Normal Affect, Appropriate Vital Signs Temp Pulse Resp Pulse Ox 98.3 F 93 18 100 01/18/18 23:31 01/19/18 00:23 01/19/18 00:23 01/19/18 00:23 Assessment/Plan All Active Problems (Last Reviewed 01/11/18 @ 03:00 by Reji Combs MD) Acute on chronic respiratory failure with hypoxia and hypercapnia (Acute) COPD exacerbation (Acute) COPD (chronic obstructive pulmonary disease) (Acute) Influenza B (Resolved) Lung nodule (Resolved) Ulcer of foot (Resolved) The patient is a 57 year old M with multiple comorbidities as listed above including pulmonary hypertension, COPD, end-stage renal disease on hemodialysis was recently discharged on 01/14/2018 after management of acute on chronic hypoxic respiratory failure secondary to COPD exacerbation and acute influenza B. Patient was discharged to SNF. Patient is very short of breath, tachypneic, mild somnolent and lethargic therefore detailed history and review of system is not possible now. Patient denies fever, chills worsening of baseline cough much that he was short of breath for last 2 weeks is got worse for 1 day. As per senior care documentation, his pulse ox was 92% and 5 neutral oxygen, respiratory rate 20/min, temperature 97, pulse 83. Patient is on baseline 4 L of oxygen. Chest x-ray shows bilateral stable pleural effusion with bibasilar atelectasis, therefore bibasilar consolidation cannot be excluded. Discharge summary reviewed and patient completed Tamiflu. He was discharged on tapering dose of prednisone, bronchodilator along with his chronic medications. EKG shows A. fib with nonspecific T inversion in V5 V6. Patient denies chest pain 1. Acute on chronic hypoxic and hypercarbic combined respiratory failure, suspect multiple etiologies including COPD exacerbation, heart failure, end-stage renal disease on hemodialysis, pulmonary hypertension and bilateral pleural effusion: Patient has multiple comorbidities and very compromised functional capacity. Patient full code. Admitted in ICU on BiPAP, cardiac monitoring, monitor intake and output. Manager Of Drilling consult. Repeat ABG in the morning. If respiratory failure worsens, patient agreeable for intubation and ventilator. 2. Suspected bilateral lower lobes healthcare associated pneumonia with bilateral pleural effusion: Chest x-ray does not reveal increasing pleural effusion. Empirically started on IV vancomycin and Zosyn. Complete sepsis workup with blood cultures ?2, sputum culture, MRSA nasal screen, and urinary antigens. Patient completed Tamiflu for recent influenza B on 01/11/2018. Previous blood culture was negative. 3. COPD exacerbation, exact etiology unclear but possible viral bronchitis: Respiratory panel ordered. On bronchodilator, Solu-Medrol, incentive spirometry, chest physiotherapy and NIPPV BiPAP. 4. Other chronic pulmonary conditions: Patient has COPD, moderate pulmonary hypertension, RVSP 48 mmHg, chronic cor pulmonale with mild to moderate global right ventricular systolic dysfunction and moderate bilateral pleural effusion 5. Cardiac disease: Chronic systolic heart failure secondary to ischemic cardiomyopathy, coronary artery disease, valvular heart disease, chronic A. fib, sick sinus syndrome. Patient had emesis of bacteremia in August 2017 after that ICD was extracted. Recent 2D echo in August 2017 shows EF 30% with moderate global left ventricular systolic dysfunction. Mild gastric LVH. LA mildly enlarged. 2+ eccentric MR. 3+ moderate severe tricuspid valve insufficiency. Patient also has chronically elevated troponin. 6. ESRD on hemodialysis, M, [facility]N F: Patient follows apartment leasing agent Dr. Balbuena. Consult nephrology. Patient has right-sided subclavian hemodialysis catheter recently inserted about 3 weeks ago. Left upper extremity AV fistula nonfunctioning. 7. Multiple other comorbidities include hypertension, anemia of chronic disease secondary to ESRD, GERD, decreased functional capacity Multiple comorbidities complicates the present care and expect difficult and delay recovery DVT prophylaxis: On Eliquis 2.5 mg twice daily Code Visit Inpatient E&M: 42566 Init Hosp L3
--- NOTE | 2018-01-19 01:41 | HP.PCM_ITS ---
Problem List (1) Acute on chronic respiratory failure with hypoxia and hypercapnia Status: Acute (2) COPD exacerbation Status: Acute (3) HCAP (healthcare-associated pneumonia) Status: Inactive (4) ESRD (end stage renal disease) Status: Chronic (5) COPD (chronic obstructive pulmonary disease) Status: Acute (6) Influenza B Status: Resolved (7) ICD extraction Status: Chronic Comment: MSSA Bacteremia 08/2017 @[facility] (8) Lung nodule Status: Resolved (9) Atrial fibrillation Status: Chronic Qualifiers: Atrial fibrillation type: paroxysmal (10) intermediate current use of anticoagulant Status: Chronic (11) Elevated troponin Status: Chronic Comment: not trending (12) Mitral insufficiency Status: Chronic (13) Implantable cardioverter-defibrillator (ICD) in situ Status: Chronic Comment: implanted in 12/07/2015 at [facility] (14) Sick sinus syndrome Status: Chronic Comment: S/P dual-chamber Pacemaker/ICD (15) ESRD (end stage renal disease) Status: Chronic Comment: on HD (16) HTN (hypertension) Status: Chronic Qualifiers: (17) Pulmonary HTN Status: Chronic (18) Anemia with chronic illness Status: Chronic Comment: ESRD (19) Non-compliance Status: Chronic Comment: non-compliant with meds and with dialysis (20) Non-compliance with renal dialysis Status: Chronic (21) Respiratory failure with hypoxia Status: Chronic Qualifiers: (22) Bilateral pleural effusion Status: Chronic (23) Cardiomyopathy Status: Chronic Qualifiers: (24) CHF (congestive heart failure) Status: Chronic Comment: EF 30% (25) Coronary artery arteriosclerosis Status: Chronic (26) 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 (27) COPD (chronic obstructive pulmonary disease) Status: Chronic (28) History of nephrectomy Status: Chronic (29) History of kidney cancer Status: Chronic (30) Chest pain Status: Chronic Qualifiers: History of Present Illness Date of Admission: 01/19/18 Chief Complaint: Shortness of breath for about 2 weeks The patient is a 57 year old M with multiple comorbidities as listed above including pulmonary hypertension, COPD, end-stage renal disease on hemodialysis was recently discharged on 01/14/2018 after management of acute on chronic hypoxic respiratory failure secondary to COPD exacerbation and acute influenza B. Patient was discharged to SNF. Patient is very short of breath, tachypneic, mild somnolent and lethargic therefore detailed history and review of system is not possible now. Patient denies fever, chills worsening of baseline cough much that he was short of breath for last 2 weeks is got worse for 1 day. As per [facility] documentation, his pulse ox was 92% and 5 neutral oxygen, respiratory rate 20/min, temperature 97, pulse 83. Patient is on baseline 4 L of oxygen. Chest x-ray shows bilateral stable pleural effusion with bibasilar atelectasis, therefore bibasilar consolidation cannot be excluded. Discharge summary reviewed and patient completed Tamiflu. He was discharged on tapering dose of prednisone, bronchodilator along with his chronic medications. EKG shows A. fib with nonspecific T inversion in V5 V6. 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) Elevated troponin (Chronic) not trending Mitral insufficiency (Chronic) Implantable cardioverter-defibrillator (ICD) in situ (Chronic) implanted in 12/07/2015 at [facility] Sick sinus syndrome (Chronic) S/P dual-chamber Pacemaker/ICD ESRD (end stage renal disease) (Chronic) on HD HTN (hypertension) (Chronic) Pulmonary HTN (Chronic) Anemia with chronic illness (Chronic) ESRD Non-compliance (Chronic) non-compliant with meds and with dialysis Non-compliance with renal dialysis (Chronic) Respiratory failure with hypoxia (Chronic) Bilateral pleural effusion (Chronic) Cardiomyopathy (Chronic) CHF (congestive heart failure) (Chronic) EF 30% Coronary artery arteriosclerosis (Chronic) 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 COPD (chronic obstructive pulmonary disease) (Chronic) History of nephrectomy (Chronic) History of kidney cancer (Chronic) Chest pain (Chronic) Medical History: Medical History (Last Reviewed 01/11/18 @ 03:00 by Reji Combs MD) Atrial fibrillation (Chronic) I48.91 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 (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) Z79.01 ESRD (end stage renal disease) (Chronic) N18.6 on HD HTN (hypertension) (Chronic) I10 Pulmonary HTN (Chronic) I27.2 Anemia with chronic illness (Chronic) D63.8 ESRD Non-compliance (Chronic) Z91.19 non-compliant with meds and with dialysis Non-compliance with renal dialysis (Chronic) Z91.15 Respiratory failure with hypoxia (Chronic) J96.91 Bilateral pleural effusion (Chronic) J90 Cardiomyopathy (Chronic) I42.9 CHF (congestive heart failure) (Chronic) I50.9 EF 30% Coronary artery arteriosclerosis (Chronic) I25.10 Parathyroid disease (Chronic) E21.5 due to ESRD COPD (chronic obstructive pulmonary disease) (Chronic) J44.9 History of kidney cancer (Chronic) Z85.528 Chest pain (Chronic) R07.9 Ulcer of foot (Resolved) L97.509 Allergies onion Adverse Reaction (Severe, Verified 01/10/18 20:47) Unknown Home Medications: Ambulatory Orders Medication Instructions Recorded Acetaminophen [Tylenol] 1,000 mg PO Q4H PRN PRN 05/17/15 Calcium Acetate [Phoslo Gel Cap] 667 mg PO TIDCM 05/17/15 Apixaban [Eliquis] 2.5 mg PO BID 11/26/17 Hydroxyzine Pamoate 25 mg PO QHS 11/28/17 Amiodarone HCl [Cordarone] 200 mg PO DAILY tab 12/01/17 Metoprolol Tartrate [Lopressor 50 mg PO TID 12/09/17 (beta michael)] Renavite 1 tab PO DAILY 12/09/17 Isosorbide Dinitrate 10 mg PO DAILY 01/10/18 Loratadine 5 mg PO DAILY 01/10/18 Metoclopramide [Reglan] 5 mg PO BID 01/10/18 Nortriptyline HCl 50 mg PO QHS 01/10/18 Omeprazole 40 mg PO BID 01/10/18 hydrALAZINE [Apresoline] 25 mg PO TID 01/10/18 Albuterol Aerosols [Ventolin 2.5 mg INHALATION Q2H PRN PRN #30 01/14/18 Aerosols] vial.neb. Ipratropium/Albuterol Sulfate 3 ml INHALATION Q4H.RT ampul.neb 01/14/18 [Duoneb] Oseltamivir Phosphate [Tamiflu] 30 mg PO DAILY capsule 01/14/18 Prednisone See Taper PO DAILY #30 tablet 01/14/18 Surgical History: Surgical History (Last Reviewed 01/11/18 @ 03:01 by Reji Combs MD) History of nephrectomy (Chronic) Z98.890, Z90.5 Surgical History: - - AVF placement PAIGE, left nephrectomy for cancer, aicd in Smoking Status: Former smoker - *Family History Maternal History Items: No pertinent history, - - Patient's mother at age of 73 with a history of end-stage renal failure. Paternal History Items: Renal Disease, - - The patient's mother at age of 69 with a history of kidney cancer. Review of Systems Unable to obtain accurate/complete ROS d/t: Patient is lethargic and somnolent and respiratory failure VTE Information - Inpt Only VTE Present on Admission: No VTE Mechan Device Prophylaxis: None VTE Pharm Prophylaxis ordered?: Yes Patient Problems: Active and Suspected Problems (Last Reviewed 01/11/18 @ 03:00 by Reji Combs MD) Acute on chronic respiratory failure with hypoxia and hypercapnia (Acute) COPD exacerbation (Acute) - Physical Exam General: Disoriented, Lethargic HEENT: Atraumatic, PERRLA, EOMI, Normocephalic Oral: Dry Mucosa Neck: Supple, No JVD, Negative Carotid Bruits Lungs: Diminished - Posterior half of both lungs. Bilateral pleural effusion, Tachypneic, Using Accessory Muscles, Wheezes Cardiovascular: Normal S1, Normal S2, No murmurs, Irregular Rate Abdomen: Bowel Sounds Present, Soft, Non Tender, Non-Distended Extremities: Capillary Refill Less than 3 Seconds, Edema Skin: No rashes, No breakdown Musculoskeletal: No Tenderness to Palpation of Joints or Extremities, Arthritic Changes, Muscle Wasting Neurological: Cranial nerves II-XII grossly intact Psych/Mental Status: Normal Affect, Appropriate Vital Signs Temp Pulse Resp Pulse Ox 98.3 F 93 18 100 01/18/18 23:31 01/19/18 00:23 01/19/18 00:23 01/19/18 00:23 Assessment/Plan All Active Problems (Last Reviewed 01/11/18 @ 03:00 by Reji Combs MD) Acute on chronic respiratory failure with hypoxia and hypercapnia (Acute) COPD exacerbation (Acute) COPD (chronic obstructive pulmonary disease) (Acute) Influenza B (Resolved) Lung nodule (Resolved) Ulcer of foot (Resolved) The patient is a 57 year old M with multiple comorbidities as listed above including pulmonary hypertension, COPD, end-stage renal disease on hemodialysis was recently discharged on 01/14/2018 after management of acute on chronic hypoxic respiratory failure secondary to COPD exacerbation and acute influenza B. Patient was discharged to SNF. Patient is very short of breath, tachypneic, mild somnolent and lethargic therefore detailed history and review of system is not possible now. Patient denies fever, chills worsening of baseline cough much that he was short of breath for last 2 weeks is got worse for 1 day. As per [facility] documentation, his pulse ox was 92% and 5 neutral oxygen, respiratory rate 20/min, temperature 97, pulse 83. Patient is on baseline 4 L of oxygen. Chest x-ray shows bilateral stable pleural effusion with bibasilar atelectasis, therefore bibasilar consolidation cannot be excluded. Discharge summary reviewed and patient completed Tamiflu. He was discharged on tapering dose of prednisone, bronchodilator along with his chronic medications. EKG shows A. fib with nonspecific T inversion in V5 V6. Patient denies chest pain 1. Acute on chronic hypoxic and hypercarbic combined respiratory failure, suspect multiple etiologies including COPD exacerbation, heart failure, end- stage renal disease on hemodialysis, pulmonary hypertension and bilateral pleural effusion: Patient has multiple comorbidities and very compromised functional capacity. Patient full code. Admitted in ICU on BiPAP, cardiac monitoring, monitor intake and output. Belt Loop Maker consult. Repeat ABG in the morning. If respiratory failure worsens, patient agreeable for intubation and ventilator. 2. Suspected bilateral lower lobes healthcare associated pneumonia with bilateral pleural effusion: Chest x-ray does not reveal increasing pleural effusion. Empirically started on IV vancomycin and Zosyn. Complete sepsis workup with blood cultures ?2, sputum culture, MRSA nasal screen, and urinary antigens. Patient completed Tamiflu for recent influenza B on 01/11/2018. Previous blood culture was negative. 3. COPD exacerbation, exact etiology unclear but possible viral bronchitis: Respiratory panel ordered. On bronchodilator, Solu-Medrol, incentive spirometry , chest physiotherapy and NIPPV BiPAP. 4. Other chronic pulmonary conditions: Patient has COPD, moderate pulmonary hypertension, RVSP 48 mmHg, chronic cor pulmonale with mild to moderate global right ventricular systolic dysfunction and moderate bilateral pleural effusion 5. Cardiac disease: Chronic systolic heart failure secondary to ischemic cardiomyopathy, coronary artery disease, valvular heart disease, chronic A. fib , sick sinus syndrome. Patient had emesis of bacteremia in August 2017 after that ICD was extracted. Recent 2D echo in August 2017 shows EF 30% with moderate global left ventricular systolic dysfunction. Mild gastric LVH. LA mildly enlarged. 2+ eccentric MR. 3+ moderate severe tricuspid valve insufficiency. Patient also has chronically elevated troponin. 6. ESRD on hemodialysis, M, WN F: Patient follows clinical evaluator Dr. Balbuena. Consult nephrology. Patient has right-sided subclavian hemodialysis catheter recently inserted about 3 weeks ago. Left upper extremity AV fistula nonfunctioning. 7. Multiple other comorbidities include hypertension, anemia of chronic disease secondary to ESRD, GERD, decreased functional capacity Multiple comorbidities complicates the present care and expect difficult and delay recovery DVT prophylaxis: On Eliquis 2.5 mg twice daily Code Visit Inpatient E&M: 56721 Init Hosp L3
[2018-01-19] MEDS: 0.9% NaCl Peripheral Flush Adult/Peds IV ×3 (02:07→20:07)
[2018-01-19 03:20] LABS: BNP,B-Type NATRIURETIC PEPTIDE > 5000.0 pg/mL (0-100)
--- NOTE | 2018-01-19 03:39 | PCM.RX.CS ---
Consult Pharmacy has been consulted to manage selected antiobiotic: Vancomycin Type of Consult: New start Suspected Infection: Pneumonia Prior Doses of Antibiotics Received/Current Regimen: Medications Discontinued Medications Vancomycin HCl 750 mg/ Sodium (Chloride) 265 mls @ 250 mls/hr IV X1 ONE Stop: 01/19/18 01:57 Last Admin: 01/19/18 01:45 Dose: 250 mls/hr Labs: Sodium 128 mmol/L (136-145) L 01/18/18 23:38 Potassium 4.5 mmol/L (3.5-5.1) 01/18/18 23:38 Chloride 94 mmol/L (98-107) L 01/18/18 23:38 Carbon Dioxide 22.0 mmol/L (21.0-32.0) 01/18/18 23:38 Anion Gap 12 (5-15) 01/18/18 23:38 BUN 35 mg/dL (7-18) H 01/18/18 23:38 Creatinine 3.52 mg/dL (0.70-1.30) H 01/18/18 23:38 Est GFR (MDRD) Af Amer 23 mL/min (>60) L 01/18/18 23:38 Est GFR (MDRD) Non-Af 19 mL/min (>60) L 01/18/18 23:38 BUN/Creatinine Ratio 9.9 RATIO (10-20) L 01/18/18 23:38 Glucose 134 mg/dL (74-106) H 01/18/18 23:38 Weight used for dosin.5 kg Estimated Creatinine Clearance: 17 Goal Trough: 10-15 mcg/mL Pharmacy Plan for Drug Dosing: Due to CrCl<20 a random vancomycin level will be drawn 01/20/18 @0600 and further dosing determined from those results. Pharmacy Service will continue to monitor and adjust dosing as required. Follow-Up Labs: Trough Vancomycin - random Labs to be done on [date and time ordered]: 01/20/18 @0600
--- NOTE | 2018-01-19 04:45 | CPS ---
PT RESTLESS, ADJUSTED BIPAP SETTINGS FOR PT COMFORT
[2018-01-19 05:05] LABS: M R Staph aureus DNA By PCR POSITIVE (Negative); Probe Check PASS
[2018-01-19 05:26] LABS: Allen Test POS; Base Excess 5 mmol/L (-2 to +2); Bicarbonate 30.7 mmol/L (22-26); Blood Gas Specimen Type ART; EPAP 8; FI02 35; IPAP 16; PO2 59 mmHG (75-100); RR 12; SITE L Radial; SO2 88 % (95-99); Time Given 516; Total Carbon Dioxide 32 mmol/L; pCO2 56.5 mmHg (35-45); pH 7.34 (7.35-7.45)
[2018-01-19] MEDS: hydrALAZINE 25 MG Tablet PO ×2 (05:41→15:24)
[2018-01-19] MEDS: Metoprolol Tartrate 50 MG Tablet PO ×3 (05:41→22:36)
--- NOTE | 2018-01-19 06:56 | PCM.CON.CC ---
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 (7) Mitral insufficiency Status: Chronic (8) Sick sinus syndrome Status: Chronic Comment: S/P dual-chamber Pacemaker/ICD (9) ESRD (end stage renal disease) Status: Chronic Comment: on HD (10) HTN (hypertension) Status: Chronic Qualifiers: (11) Pulmonary HTN Status: Chronic (12) Anemia with chronic illness Status: Chronic Comment: ESRD (13) Non-compliance Status: Chronic Comment: non-compliant with meds and with dialysis (14) Respiratory failure with hypoxia Status: Chronic Qualifiers: (15) Cardiomyopathy Status: Chronic Qualifiers: (16) 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 Patient is on 4 L nasal cannula at baseline, but had reported increasing shortness of breath over the last 2-3 days. Patient had received some breathing treatments with no improvement, so went to the ER for evaluation after being found to be hypoxic into the 70s on baseline nasal cannula. On presentation to the emergency room, patient was noted to be 86% on a nonrebreather mask. Patient was placed on BiPAP therapy with improvement in symptomatology. Patient was also given Solu-Medrol and DuoNeb therapy. Patient was treated with Vanco and Zosyn. Patient transferred to the intensive care unit for further monitoring. While in the intensive care unit, patient has been weaned down to 6 L nasal cannula. Patient is still reporting some shortness of breath, especially with any movement. Patient is denying any productive cough, hemoptysis or recent fever. Patient states he did have hemodialysis on Saturday and believes that it went normally. Patient denies any excessive water or salt intake over the weekend. Patient has been compliant with his Eliquis therapy and denies any bleeding complications such as hemoptysis, melena, coffee-ground emesis or hematochezia. Patient knows of no documented fever. Patient states he can become chilled intermittently. No new rash or pain has been reported. Review of systems otherwise negative ?10 systems. Past Medical History Past Medical History (Chronic Problems): Chronic Problems (Last Reviewed 01/11/18 @ 03:00 by Reji Combs MD) ESRD (end stage renal disease) (Chronic) ICD extraction (Chronic) MSSA Bacteremia 08/2017 @[facility] Atrial fibrillation (Chronic) shelter current use of anticoagulant (Chronic) Elevated troponin (Chronic) not trending Mitral insufficiency (Chronic) Implantable cardioverter-defibrillator (ICD) in situ (Chronic) implanted in 12/07/2015 at [facility] Sick sinus syndrome (Chronic) S/P dual-chamber Pacemaker/ICD ESRD (end stage renal disease) (Chronic) on HD HTN (hypertension) (Chronic) Pulmonary HTN (Chronic) Anemia with chronic illness (Chronic) ESRD Non-compliance (Chronic) non-compliant with meds and with dialysis Non-compliance with renal dialysis (Chronic) Respiratory failure with hypoxia (Chronic) Bilateral pleural effusion (Chronic) Cardiomyopathy (Chronic) CHF (congestive heart failure) (Chronic) EF 30% Coronary artery arteriosclerosis (Chronic) 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 COPD (chronic obstructive pulmonary disease) (Chronic) History of nephrectomy (Chronic) History of kidney cancer (Chronic) Chest pain (Chronic) Medical History: Medical History (Last Reviewed 01/11/18 @ 03:00 by Reji Combs MD) Atrial fibrillation (Chronic) I48.91 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) Z79.01 ESRD (end stage renal disease) (Chronic) N18.6 on HD HTN (hypertension) (Chronic) I10 Pulmonary HTN (Chronic) I27.2 Anemia with chronic illness (Chronic) D63.8 ESRD Non-compliance (Chronic) Z91.19 non-compliant with meds and with dialysis Non-compliance with renal dialysis (Chronic) Z91.15 Respiratory failure with hypoxia (Chronic) J96.91 Bilateral pleural effusion (Chronic) J90 Cardiomyopathy (Chronic) I42.9 CHF (congestive heart failure) (Chronic) I50.9 EF 30% Coronary artery arteriosclerosis (Chronic) I25.10 Parathyroid disease (Chronic) E21.5 due to ESRD COPD (chronic obstructive pulmonary disease) (Chronic) J44.9 History of kidney cancer (Chronic) Z85.528 Chest pain (Chronic) R07.9 Ulcer of foot (Resolved) L97.509 Allergies onion Adverse Reaction (Severe, Verified 01/10/18 20:47) Unknown Home Medications: Ambulatory Orders Medication Instructions Recorded Acetaminophen [Tylenol] 1,000 mg PO Q4H PRN PRN 05/17/15 Calcium Acetate [Phoslo Gel Cap] 667 mg PO TIDCM 05/17/15 Apixaban [Eliquis] 2.5 mg PO BID 11/26/17 Hydroxyzine Pamoate 25 mg PO QHS 11/28/17 Amiodarone HCl [Cordarone] 200 mg PO DAILY tab 12/01/17 Metoprolol Tartrate [Lopressor 50 mg PO TID 12/09/17 (beta michael)] Renavite 1 tab PO DAILY 12/09/17 Isosorbide Dinitrate 10 mg PO DAILY 01/10/18 Loratadine 5 mg PO DAILY 01/10/18 Metoclopramide [Reglan] 5 mg PO BID 01/10/18 Nortriptyline HCl 50 mg PO QHS 01/10/18 Omeprazole 40 mg PO BID 01/10/18 hydrALAZINE [Apresoline] 25 mg PO TID 01/10/18 Albuterol Aerosols [Ventolin 2.5 mg INHALATION Q2H PRN PRN #30 01/14/18 Aerosols] vial.neb. Ipratropium/Albuterol Sulfate 3 ml INHALATION Q4H.RT ampul.neb 01/14/18 [Duoneb] Oseltamivir Phosphate [Tamiflu] 30 mg PO DAILY capsule 01/14/18 Prednisone See Taper PO DAILY #30 tablet 01/14/18 Surgical History: Surgical History (Last Reviewed 01/11/18 @ 03:01 by Reji Combs MD) History of nephrectomy (Chronic) Z98.890, Z90.5 Surgical History: - - AVF placement PAIGE, left nephrectomy for cancer, aicd in Smoking Status: Former smoker - *Family History Maternal History Items: No pertinent history, - - Patient's mother at age of 73 with a history of end-stage renal failure. Paternal History Items: Renal Disease, - - The patient's mother at age of 69 with a history of kidney cancer. Review of Systems Comment: See HPI Objective: Chest x-ray was personally reviewed. This does not appear significantly changed compared to previous imaging studies. Patient does have bilateral pleural effusions. - Physical Exam General: Alert, Oriented x3, Cooperative, No apparent distress, - - Appears older than stated age. Speaking in full sentences. HEENT: Atraumatic, PERRLA, EOMI, Normocephalic, - - No scleral icterus or injection noted. Oral: Moist Mucosa, No Gingival or Mucosal Lesions/ Ulcerations Neck: Supple, No Nodes, Trachea Midline, JVD, Right Lungs: No wheeze, Diminished - Bilateral bases, Rales, - - Symmetric expansion. Dullness to percussion bilateral bases Cardiovascular: Normal S1, Normal S2, Irregular Rate, Murmur, No rub noted, No Gallop Abdomen: Bowel Sounds Present, Soft, Non Tender, Non-Distended Extremities: No cyanosis, No edema, Capillary Refill Less than 3 Seconds, Clubbing Skin: - - Multiple ecchymotic areas. Old failed fistula noted left upper extremity. Musculoskeletal: No Tenderness to Palpation of Joints or Extremities Lymphatic: No Cervical, Supraclavicular, or Inguinal Adenopathy Neurological: Cranial nerves II-XII grossly intact, Neuro grossly intact, Motor Exam 5/5 strength throughout Psych/Mental Status: Alert and oriented to time, place, person, mood and affect Vital Signs Temp Pulse Resp BP Pulse Ox 36.7 C 94 21 H 142/97 H 95 01/19/18 04:00 01/19/18 06:00 01/19/18 06:00 01/19/18 06:00 01/19/18 06:00 Oxygen Flow Rate (L/min) 4 Oxygen Delivery Method Nasal Cannula Weight: 58.5 kg Body Mass Index (BMI) 20.2 Intake and Output for Last 24 Hours 01/17/18 01/18/18 01/19/18 23:59 23:59 23:59 Intake Total 436 / 436 Balance 436 / 436 Laboratory Tests Past 24 Hrs 01/19/18 01/19/18 01/19/18 02:00 04:35 04:35 WBC Cancelled Corrected WBC Cancelled RBC Cancelled Hgb Cancelled Hct Cancelled MCV Cancelled MCH Cancelled MCHC Cancelled RDW Cancelled RDW Differential Cancelled Plt Count Cancelled MPV Cancelled Diff Path Review Cancelled Specimen Type Sample Site pH Bicarbonate Actual POC Total CO2 Base Excess O2 Saturation O2 % ABG pCO2 ABG pO2 Dhruv Test Respiration Rate O2 Delivery Device EPAP IPAP Blood Gas Notified Whom Blood Gas Notified Time Sodium Cancelled Potassium Cancelled Chloride Cancelled Carbon Dioxide Cancelled Anion Gap Cancelled BUN Cancelled Creatinine Cancelled Estim Creat Clear Calc Cancelled Est GFR (MDRD) Af Amer Cancelled Est GFR (MDRD) Non-Af Cancelled BUN/Creatinine Ratio Cancelled Glucose Cancelled Calcium Cancelled MRSA (PCR) POSITIVE H 01/19/18 05:19 WBC Corrected WBC RBC Hgb Hct MCV MCH MCHC RDW RDW Differential Plt Count MPV Diff Path Review Specimen Type ART Sample Site L Radial pH 7.34 L Bicarbonate Actual 30.7 H POC Total CO2 32 Base Excess 5 H O2 Saturation 88 L O2 % 35 ABG pCO2 56.5 H ABG pO2 59 L Dhruv Test POS Respiration Rate 12 O2 Delivery Device Bi / C PAP EPAP 8 IPAP 16 Blood Gas Notified Whom [facility] Blood Gas Notified Time 516 Sodium Potassium Chloride Carbon Dioxide Anion Gap BUN Creatinine Estim Creat Clear Calc Est GFR (MDRD) Af Amer Est GFR (MDRD) Non-Af BUN/Creatinine Ratio Glucose Calcium MRSA (PCR) Clinical Impression(s) from Imaging Studies Chest X-Ray 01/18/18 23:50 IMPRESSION: No significant change in cardiomegaly, bilateral pleural effusions and mild vascular congestion. Bibasilar pneumonia cannot be excluded. Electronically Signed: Hang Valladares MD at 0:16 EDT , Service support , Chest X-Ray 01/19/18 04:10 IMPRESSION: No significant change in cardiomegaly, bilateral pleural effusions, possible mild vascular congestion and bilateral subsegmental atelectasis versus pneumonia. Electronically Signed: Hang Valladares MD at 4:52 EDT , Service support , Assessment/Plan RECOMMENDATIONS: 1. Continue scheduled bronchodilator, transition to prednisone 2. Increase activity as tolerated 3. Wean supplemental oxygen as tolerated. 4. Await hemodialysis decision per nephrology. 5. Continue Eliquis as ordered. IMPRESSIONS: 1. Acute on chronic hypoxemic respiratory failure, likely secondary to acute on chronic systolic congestive heart failure Patient's chest x-ray appears grossly unchanged compared to previous. Patient did have a recent infection with influenza B and would be at risk for MRSA superinfection. Okay to continue antibiotics for another 24-48 hours, but clinical suspicion is for congestive heart failure leading to current presentation. Wean oxygen as tolerated. Will defer to nephrology on whether patient requires hemodialysis today or can be run tomorrow. Patient potentially could have thoracentesis, but this would require discontinuation of Eliquis therapy and would have high likelihood of recurrence rapidly given comorbidities. 2. Paroxysmal atrial fibrillation Continue Eliquis, amiodarone and beta-michael per outpatient regimen. 3. End-stage renal disease on hemodialysis/sick sinus syndrome/pulmonary hypertension/recent influenza B/secondary hyperparathyroidism Complicates care, management, recovery and prognosis. Continue hemodialysis per nephrology recommendations. This note was generated with [employer] dictation software. It may contain incorrect words, spelling, and punctuation that were not noted in checking the note before signing. Code Visit Inpatient E&M: 62784 Init Hosp L3
--- NOTE | 2018-01-19 07:01 | CON.PCM_ITS ---
Problem List (1) ESRD (end stage renal disease) Status: Chronic (2) COPD (chronic obstructive pulmonary disease) Status: Acute Qualifiers: COPD type: emphysema Emphysema type: centrilobular Qualified Code(s): J43.2 - Centrilobular emphysema (3) Influenza B Status: Acute (4) Lung nodule Status: Resolved (5) Atrial fibrillation Status: Chronic Qualifiers: Atrial fibrillation type: paroxysmal (6) [employer] current use of anticoagulant Status: Chronic (7) Mitral insufficiency Status: Chronic (8) Sick sinus syndrome Status: Chronic Comment: S/P dual-chamber Pacemaker/ICD (9) ESRD (end stage renal disease) Status: Chronic Comment: on HD (10) HTN (hypertension) Status: Chronic Qualifiers: (11) Pulmonary HTN Status: Chronic (12) Anemia with chronic illness Status: Chronic Comment: ESRD (13) Non-compliance Status: Chronic Comment: non-compliant with meds and with dialysis (14) Respiratory failure with hypoxia Status: Chronic Qualifiers: (15) Cardiomyopathy Status: Chronic Qualifiers: (16) 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 Patient is on 4 L nasal cannula at baseline, but had reported increasing shortness of breath over the last 2-3 days. Patient had received some breathing treatments with no improvement, so went to the ER for evaluation after being found to be hypoxic into the 70s on baseline nasal cannula. On presentation to the emergency room, patient was noted to be 86% on a nonrebreather mask. Patient was placed on BiPAP therapy with improvement in symptomatology. Patient was also given Solu-Medrol and DuoNeb therapy. Patient was treated with Vanco and Zosyn. Patient transferred to the intensive care unit for further monitoring. While in the intensive care unit, patient has been weaned down to 6 L nasal cannula. Patient is still reporting some shortness of breath, especially with any movement. Patient is denying any productive cough, hemoptysis or recent fever. Patient states he did have hemodialysis on Saturday and believes that it went normally. Patient denies any excessive water or salt intake over the weekend. Patient has been compliant with his Eliquis therapy and denies any bleeding complications such as hemoptysis, melena, coffee-ground emesis or hematochezia. Patient knows of no documented fever. Patient states he can become chilled intermittently. No new rash or pain has been reported. Review of systems otherwise negative ?10 systems. Past Medical History Past Medical History (Chronic Problems): Chronic Problems (Last Reviewed 01/11/18 @ 03:00 by Reji Combs MD) ESRD (end stage renal disease) (Chronic) ICD extraction (Chronic) MSSA Bacteremia 08/2017 @[facility] Atrial fibrillation (Chronic) [employer] current use of anticoagulant (Chronic) Elevated troponin (Chronic) not trending Mitral insufficiency (Chronic) Implantable cardioverter-defibrillator (ICD) in situ (Chronic) implanted in 12/07/2015 at [facility] Sick sinus syndrome (Chronic) S/P dual-chamber Pacemaker/ICD ESRD (end stage renal disease) (Chronic) on HD HTN (hypertension) (Chronic) Pulmonary HTN (Chronic) Anemia with chronic illness (Chronic) ESRD Non-compliance (Chronic) non-compliant with meds and with dialysis Non-compliance with renal dialysis (Chronic) Respiratory failure with hypoxia (Chronic) Bilateral pleural effusion (Chronic) Cardiomyopathy (Chronic) CHF (congestive heart failure) (Chronic) EF 30% Coronary artery arteriosclerosis (Chronic) 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 COPD (chronic obstructive pulmonary disease) (Chronic) History of nephrectomy (Chronic) History of kidney cancer (Chronic) Chest pain (Chronic) Medical History: Medical History (Last Reviewed 01/11/18 @ 03:00 by Reji Combs MD) Atrial fibrillation (Chronic) I48.91 prison current use of anticoagulant (Chronic) Z79.01 ESRD (end stage renal disease) (Chronic) N18.6 on HD HTN (hypertension) (Chronic) I10 Pulmonary HTN (Chronic) I27.2 Anemia with chronic illness (Chronic) D63.8 ESRD Non-compliance (Chronic) Z91.19 non-compliant with meds and with dialysis Non-compliance with renal dialysis (Chronic) Z91.15 Respiratory failure with hypoxia (Chronic) J96.91 Bilateral pleural effusion (Chronic) J90 Cardiomyopathy (Chronic) I42.9 CHF (congestive heart failure) (Chronic) I50.9 EF 30% Coronary artery arteriosclerosis (Chronic) I25.10 Parathyroid disease (Chronic) E21.5 due to ESRD COPD (chronic obstructive pulmonary disease) (Chronic) J44.9 History of kidney cancer (Chronic) Z85.528 Chest pain (Chronic) R07.9 Ulcer of foot (Resolved) L97.509 Allergies onion Adverse Reaction (Severe, Verified 01/10/18 20:47) Unknown Home Medications: Ambulatory Orders Medication Instructions Recorded Acetaminophen [Tylenol] 1,000 mg PO Q4H PRN PRN 05/17/15 Calcium Acetate [Phoslo Gel Cap] 667 mg PO TIDCM 05/17/15 Apixaban [Eliquis] 2.5 mg PO BID 11/26/17 Hydroxyzine Pamoate 25 mg PO QHS 11/28/17 Amiodarone HCl [Cordarone] 200 mg PO DAILY tab 12/01/17 Metoprolol Tartrate [Lopressor 50 mg PO TID 12/09/17 (beta michael)] Renavite 1 tab PO DAILY 12/09/17 Isosorbide Dinitrate 10 mg PO DAILY 01/10/18 Loratadine 5 mg PO DAILY 01/10/18 Metoclopramide [Reglan] 5 mg PO BID 01/10/18 Nortriptyline HCl 50 mg PO QHS 01/10/18 Omeprazole 40 mg PO BID 01/10/18 hydrALAZINE [Apresoline] 25 mg PO TID 01/10/18 Albuterol Aerosols [Ventolin 2.5 mg INHALATION Q2H PRN PRN #30 01/14/18 Aerosols] vial.neb. Ipratropium/Albuterol Sulfate 3 ml INHALATION Q4H.RT ampul.neb 01/14/18 [Duoneb] Oseltamivir Phosphate [Tamiflu] 30 mg PO DAILY capsule 01/14/18 Prednisone See Taper PO DAILY #30 tablet 01/14/18 Surgical History: Surgical History (Last Reviewed 01/11/18 @ 03:01 by Reji Combs MD) History of nephrectomy (Chronic) Z98.890, Z90.5 Surgical History: - - AVF placement PAIGE, left nephrectomy for cancer, aicd in Smoking Status: Former smoker - *Family History Maternal History Items: No pertinent history, - - Patient's mother at age of 73 with a history of end-stage renal failure. Paternal History Items: Renal Disease, - - The patient's mother at age of 69 with a history of kidney cancer. Review of Systems Comment: See HPI Objective: Chest x-ray was personally reviewed. This does not appear significantly changed compared to previous imaging studies. Patient does have bilateral pleural effusions. - Physical Exam General: Alert, Oriented x3, Cooperative, No apparent distress, - - Appears older than stated age. Speaking in full sentences. HEENT: Atraumatic, PERRLA, EOMI, Normocephalic, - - No scleral icterus or injection noted. Oral: Moist Mucosa, No Gingival or Mucosal Lesions/ Ulcerations Neck: Supple, No Nodes, Trachea Midline, JVD, Right Lungs: No wheeze, Diminished - Bilateral bases, Rales, - - Symmetric expansion. Dullness to percussion bilateral bases Cardiovascular: Normal S1, Normal S2, Irregular Rate, Murmur, No rub noted, No Gallop Abdomen: Bowel Sounds Present, Soft, Non Tender, Non-Distended Extremities: No cyanosis, No edema, Capillary Refill Less than 3 Seconds, Clubbing Skin: - - Multiple ecchymotic areas. Old failed fistula noted left upper extremity. Musculoskeletal: No Tenderness to Palpation of Joints or Extremities Lymphatic: No Cervical, Supraclavicular, or Inguinal Adenopathy Neurological: Cranial nerves II-XII grossly intact, Neuro grossly intact, Motor Exam 5/5 strength throughout Psych/Mental Status: Alert and oriented to time, place, person, mood and affect Vital Signs Temp Pulse Resp BP Pulse Ox 36.7 C 94 21 H 142/97 H 95 01/19/18 04:00 01/19/18 06:00 01/19/18 06:00 01/19/18 06:00 01/19/18 06:00 Oxygen Flow Rate (L/min) 4 Oxygen Delivery Method Nasal Cannula Weight: 58.5 kg Body Mass Index (BMI) 20.2 Intake and Output for Last 24 Hours 01/17/18 01/18/18 01/19/18 23:59 23:59 23:59 Intake Total 436 / 436 Balance 436 / 436 Laboratory Tests Past 24 Hrs 01/19/18 01/19/18 01/19/18 02:00 04:35 04:35 WBC Cancelled Corrected WBC Cancelled RBC Cancelled Hgb Cancelled Hct Cancelled MCV Cancelled MCH Cancelled MCHC Cancelled RDW Cancelled RDW Differential Cancelled Plt Count Cancelled MPV Cancelled Diff Path Review Cancelled Specimen Type Sample Site pH Bicarbonate Actual POC Total CO2 Base Excess O2 Saturation O2 % ABG pCO2 ABG pO2 Dhruv Test Respiration Rate O2 Delivery Device EPAP IPAP Blood Gas Notified Whom Blood Gas Notified Time Sodium Cancelled Potassium Cancelled Chloride Cancelled Carbon Dioxide Cancelled Anion Gap Cancelled BUN Cancelled Creatinine Cancelled Estim Creat Clear Calc Cancelled Est GFR (MDRD) Af Amer Cancelled Est GFR (MDRD) Non-Af Cancelled BUN/Creatinine Ratio Cancelled Glucose Cancelled Calcium Cancelled MRSA (PCR) POSITIVE H 01/19/18 05:19 WBC Corrected WBC RBC Hgb Hct MCV MCH MCHC RDW RDW Differential Plt Count MPV Diff Path Review Specimen Type ART Sample Site L Radial pH 7.34 L Bicarbonate Actual 30.7 H POC Total CO2 32 Base Excess 5 H O2 Saturation 88 L O2 % 35 ABG pCO2 56.5 H ABG pO2 59 L Dhruv Test POS Respiration Rate 12 O2 Delivery Device Bi / C PAP EPAP 8 IPAP 16 Blood Gas Notified Whom [facility] Blood Gas Notified Time 516 Sodium Potassium Chloride Carbon Dioxide Anion Gap BUN Creatinine Estim Creat Clear Calc Est GFR (MDRD) Af Amer Est GFR (MDRD) Non-Af BUN/Creatinine Ratio Glucose Calcium MRSA (PCR) Clinical Impression(s) from Imaging Studies Chest X-Ray 01/18/18 23:50 IMPRESSION: No significant change in cardiomegaly, bilateral pleural effusions and mild vascular congestion. Bibasilar pneumonia cannot be excluded. Electronically Signed: Hang Valladares MD at 0:16 EDT , Service support , Chest X-Ray 01/19/18 04:10 IMPRESSION: No significant change in cardiomegaly, bilateral pleural effusions, possible mild vascular congestion and bilateral subsegmental atelectasis versus pneumonia. Electronically Signed: Hang Valladares MD at 4:52 EDT , Service support , Assessment/Plan RECOMMENDATIONS: 1. Continue scheduled bronchodilator, transition to prednisone 2. Increase activity as tolerated 3. Wean supplemental oxygen as tolerated. 4. Await hemodialysis decision per nephrology. 5. Continue Eliquis as ordered. IMPRESSIONS: 1. Acute on chronic hypoxemic respiratory failure, likely secondary to acute on chronic systolic congestive heart failure Patient's chest x-ray appears grossly unchanged compared to previous. Patient did have a recent infection with influenza B and would be at risk for MRSA superinfection. Okay to continue antibiotics for another 24-48 hours, but clinical suspicion is for congestive heart failure leading to current presentation. Wean oxygen as tolerated. Will defer to nephrology on whether patient requires hemodialysis today or can be run tomorrow. Patient potentially could have thoracentesis, but this would require discontinuation of Eliquis therapy and would have high likelihood of recurrence rapidly given comorbidities. 2. Paroxysmal atrial fibrillation Continue Eliquis, amiodarone and beta-michael per outpatient regimen. 3. End-stage renal disease on hemodialysis/sick sinus syndrome/pulmonary hypertension/recent influenza B/secondary hyperparathyroidism Complicates care, management, recovery and prognosis. Continue hemodialysis per nephrology recommendations. This note was generated with [employer] dictation software. It may contain incorrect words, spelling, and punctuation that were not noted in checking the note before signing. Code Visit Inpatient E&M: 67680 Init Hosp L3
[2018-01-19 07:06] LABS: Bedside Glucose 121 mg/dL (70-110)
[2018-01-19 07:25] LABS: Hematocrit 36.2 % (40-54); Hemoglobin 10.6 g/dl (13.0-16.5); Mean Corp Hgb Conc 29.3 g/gl (32-36); Mean Corpuscular Hgb 26.9 pg (27.0-32.0); Mean Corpuscular Volume 91.9 fL (80-94); Mean Platelet Vol. 9.3 fl (6.2-12.0); Platelet Count 298 K/mm3 (150-450); RBC Distribution Width CV 20.1 % (11.6-14.6); RBC Distribution Width SD 61.9 fl (35.1-43.9); Red Blood Count 3.94 M/mm3 (4.6-6.2); White Blood Count 23.1 K/mm3 (4.4-11.0)
[2018-01-19 07:31] LABS: Anion Gap 9 (5-15); BUN 36 mg/dL (7-18); BUN/Creat Ratio 9.7 RATIO (10-20); Calcium,Total 9.7 mg/dL (8.5-10.1); Chloride 94 mmol/L (98-107); Creatinine, Serum 3.72 mg/dL (0.70-1.30); EST Glomerular Filtration Rate 18 mL/min (>60); Est Glom Filt Rate - Afr Amer 22 mL/min (>60); Estimated Creatinine Clearance 17.91 ml/min; Glucose 127 mg/dL (74-106); Potassium 4.6 mmol/L (3.5-5.1); Sodium Level 131 mmol/L (136-145)
[2018-01-19 07:34] LABS: Scan Indicated on CBC? Y/N YES- FLAGS NOTED; Vancomycin, Random Level 17.2 ug/mL (0.0-15.0)
[2018-01-19] MEDS: predniSONE 20 MG Tablet PO (07:37)
[2018-01-19] MEDS: Ondansetron 4 MG/2 ML Vial IV (07:37)
--- NOTE | 2018-01-19 07:37 | PCM.PN.HOSP ---
Subjective: Breathing better. Taken off BiPAP. Vitals/I&O's: Vital Signs Temp Pulse Resp BP Pulse Ox 36.7 C 90 16 138/104 H 94 01/19/18 04:00 01/19/18 07:00 01/19/18 07:00 01/19/18 07:00 01/19/18 07:00 Oxygen Flow Rate (L/min) 4 Oxygen Delivery Method Nasal Cannula Weight: 58.5 kg Body Mass Index (BMI) 20.2 Intake and Output for Last 24 Hours 01/17/18 01/18/18 01/19/18 23:59 23:59 23:59 Intake Total 436 / 436 Balance 436 / 436 General: Alert, No apparent distress, - - Appears far older than stated H. No respiratory distress. No conversational dyspnea. HEENT: Atraumatic, Normocephalic Oral: Moist Mucosa, No Gingival or Mucosal Lesions/ Ulcerations Neck: No Nodes, Thyroid Normal Size and Texture Lungs: No wheeze, Diminished, - - Bibasilar crackles Cardiovascular: Regular rate, Regular Rhythm, Normal S1, Normal S2, No murmurs Abdomen: Bowel Sounds Present, Soft, Non Tender, Non-Distended, No Hepato-splenomegaly Extremities: No Calf Tenderness, Edema - trace Skin: No rashes, No breakdown Musculoskeletal: No Muscle Wasting, Cachexia Neurological: Muscle tone normal, Coordination normal Psych/Mental Status: Normal Affect, Appropriate Laboratory Results 01/19/18 02:00: MRSA (PCR) POSITIVE H 01/19/18 04:35: WBC Cancelled, Corrected WBC Cancelled, RBC Cancelled, Hgb Cancelled, Hct Cancelled, MCV Cancelled, MCH Cancelled, MCHC Cancelled, RDW Cancelled, RDW Differential Cancelled, Plt Count Cancelled, MPV Cancelled, Diff Path Review Cancelled 01/19/18 04:35: Sodium Cancelled, Potassium Cancelled, Chloride Cancelled, Carbon Dioxide Cancelled, Anion Gap Cancelled, BUN Cancelled, Creatinine Cancelled, Estim Creat Clear Calc Cancelled, Est GFR (MDRD) Af Amer Cancelled, Est GFR (MDRD) Non-Af Cancelled, BUN/Creatinine Ratio Cancelled, Glucose Cancelled, Calcium Cancelled 01/19/18 05:19: Specimen Type ART, Sample Site L Radial, pH 7.34 L, Bicarbonate Actual 30.7 H, POC Total CO2 32, Base Excess 5 H, O2 Saturation 88 L, O2 % 35, ABG pCO2 56.5 H, ABG pO2 59 L, Dhruv Test POS, Respiration Rate 12, O2 Delivery Device Bi / C PAP, EPAP 8, IPAP 16, Blood Gas Notified Whom JIE CAMPOS, Blood Gas Notified Time 516 01/19/18 06:19: WBC 23.1 H, RBC 3.94 L, Hgb 10.6 L, Hct 36.2 L, MCV 91.9, MCH 26.9 L, MCHC 29.3 L, RDW 20.1 H, RDW Differential 61.9 H, Plt Count 298, MPV 9.3 01/19/18 06:19: Sodium 131 L, Potassium 4.6, Chloride 94 L, Carbon Dioxide 28.0, Anion Gap 9, BUN 36 H, Creatinine 3.72 H, Estim Creat Clear Calc 17.91, Est GFR (MDRD) Af Amer 22 L, Est GFR (MDRD) Non-Af 18 L, BUN/Creatinine Ratio 9.7 L, Glucose 127 H, Calcium 9.7 01/19/18 06:19: Random Vancomycin 17.2 H 01/19/18 07:01: POC Glucose 121 H Current Medications Acetaminophen (Tylenol) 650 mg PO Q6H PRN PRN PRN Reason: Mild Pain (scale 0-3)/T>100.7 Albuterol Sulfate (Ventolin Aerosols) 2.5 mg INHALATION Q2H PRN PRN PRN Reason: SHORTNESS OF BREATH Albuterol/Ipratropium (Duoneb) 3 ml INHALATION Q4H.RT [facility] Last Admin: 01/19/18 07:16 Dose: 3 ml Amiodarone HCl (Cordarone) 200 mg PO DAILY [facility] Apixaban (Eliquis) 2.5 mg PO BID [facility] Calcium Acetate (Phoslo Gel Cap) 667 mg PO TIDCM [facility] Famotidine (Pepcid) 20 mg PO BID [facility] Guaifenesin (Mucinex) 1,200 mg PO BID [facility] Heparin Sodium (Porcine) () 2,500 units IV UD PRN PRN Reason: HEPARIN FLUSH Hydralazine HCl (Apresoline) 25 mg PO TID [facility] Last Admin: 01/19/18 05:41 Dose: 25 mg Hydroxyzine Pamoate (Vistaril Pamoate Capsule) 25 mg PO QHS [facility] Sodium Chloride () 250 mls @ 15 mls/hr IV .[id number] PRN PRN Reason: SALINE FLUSH Piperacillin Sod/Tazobactam Sod (Zosyn) 3.375 gm in 50 mls @ 12.5 mls/hr IV Q12 [facility] Isosorbide Dinitrate (Isordil) 10 mg PO DAILY [facility] Loratadine (Claritin) 5 mg PO DAILY [facility] Magnesium Hydroxide (Milk Of Magnesia) 30 ml PO DAILY PRN PRN PRN Reason: Constipation Metoclopramide HCl (Metoclopramide Hcl) 5 mg PO BID [facility] Metoprolol Tartrate (Lopressor (Beta Rosemarie)) 50 mg PO TID [facility] Last Admin: 01/19/18 05:41 Dose: 50 mg Multivit/Ca Carb/B Cmplx/FA/Prenat (Nephrocaps, Renaphro) 1 capsule PO DAILY [facility] Nortriptyline HCl (Pamelor) 50 mg PO QHS [facility] Ondansetron HCl (Zofran) 4 mg IV Q6H PRN PRN PRN Reason: NAUSEA Last Admin: 01/19/18 07:37 Dose: 4 mg Oxycodone HCl (Oxyir) 5 mg PO Q4H PRN PRN PRN Reason: Moderate Pain (pain scale 4-5) Pantoprazole Sodium (Protonix) 40 mg PO BID [facility] Prednisone () 20 mg PO DAILY@0800 [facility] Last Admin: 01/19/18 07:37 Dose: 20 mg Promethazine HCl (Phenergan) 12.5 mg IV Q6H PRN PRN PRN Reason: NAUSEA/VOMITING Senna/Docusate Sodium (Senokot-S, Yasmeen-Colace) 2 tablet PO BID PRN PRN PRN Reason: constipation Sodium Chloride () 5 - 30 ml IV UD PRN PRN Reason: SALINE FLUSH Last Admin: 01/19/18 05:41 Dose: 10 ml Sodium Chloride () 10 ml IV UD PRN PRN Reason: Dialysis Catheter Flush Medical Necessity - Tobacco Use Smoking Status: Former smoker Assessment/Plan All Active Problems (Last Reviewed 01/11/18 @ 03:00 by Reji Combs MD) HCAP (healthcare-associated pneumonia) (Ruled-out) COPD (chronic obstructive pulmonary disease) (Acute) Influenza B (Acute) Lung nodule (Resolved) Ulcer of foot (Resolved) 1. Acute respiratory failure hypoxic and hypercapnic Doubt due to pneumonia Related with the patient's underlying COPD, heart failure Taken off of BiPAP and is currently on nasal cannula and stable We will continue with empiric antibiotics for now but if cultures come back negative then would discontinue antibiotics. Continue with Zosyn for now and patient did receive a dose of Lasix 2. Acute heart failure with preserved ejection fraction Ejection fraction of 50% from echocardiogram on August Patient apparently had some normal pulmonary pressures Chest x-ray overall looks better than it did on of this month. Patient to continue with dialysis for fluid removal 3. Possible acute COPD exacerbation Patient does have diminished breath sounds but no audible wheezing at this time. Patient has been transitioned from prednisolone to prednisone 4. End-stage renal disease Patient states that he had dialysis yesterday and completed dialysis session Nephrology on consultation 5. Leukocytosis Been chronically elevated for a period of time Monitor but I do not feel there is any active acute infection at this time. 6. A. fib Continue with metoprolol and Eliquis 7. DVT prophylaxis: Patient is anticoagulated Transfer to progressive care unit today Disposition will be pending the patient overall clinical response and if anything does come back from cultures. Would anticipate the patient being able to be discharged as early as next 24-48 hours. Though patient does have very frequent hospitalizations and was just discharged on the of this month. This is patient's eighth admission to this hospital past year and fifth within the past 6 months. Code Visit Inpatient E&M: 28294 Subs Hosp L3
[2018-01-19] MEDS: Calcium Acetate 667 MG Capsule PO ×2 (07:53→18:14)
[2018-01-19] MEDS: oxyCODONE 5 MG Tablet PO (07:53)
[2018-01-19] MEDS: Famotidine 20 MG Tablet PO ×2 (09:40→22:37)
[2018-01-19] MEDS: Pantoprazole Sodium 40 MG Tablet PO ×2 (09:41→22:37)
[2018-01-19] MEDS: Loratadine 10 MG Tablet 5 MG PO (09:41)
[2018-01-19] MEDS: Isosorbide DN 10 MG Tablet PO (09:42)
[2018-01-19] MEDS: Metoclopramide 5 MG TABLET PO ×2 (09:42→22:36)
[2018-01-19] MEDS: Folic Acid/Vitamin B Comp W-C 1 Capsule 1 CAP PO (09:42)
[2018-01-19] MEDS: Amiodarone 200 MG Tablet PO (09:43)
[2018-01-19] MEDS: APIXABAN 2.5 MG TABLET PO ×2 (09:43→22:35)
[2018-01-19] MEDS: guaiFENesin 1,200 MG Tablet 1200 MG PO ×2 (09:43→22:36)
[2018-01-19 12:05] LABS: Bedside Glucose 135 mg/dL (70-110)
[2018-01-19] MEDS: Heparin 10,000 UNITS/10 ML Vial IV (14:20)
[2018-01-19 17:10] LABS: Bedside Glucose 119 mg/dL (70-110)
[2018-01-19] MEDS: proMETHazine 25 MG/ML Syringe 12.5 MG IV (20:07)
[2018-01-19] MEDS: Acetaminophen 325 MG Tablet 650 MG PO (20:07)
--- NOTE | 2018-01-19 20:25 | PCM.CONS.R ---
Consultation - Renal 01/19/18 PCP/ Referring MD: Requesting physician: Meng Melton Primary care physician: Conner Lopez Reason for Consultation:: ESRD - History of Present Illness History of Present Illness: The patient is a 57 year old M with pulmonary hypertension, COPD, end-stage renal disease on hemodialysis. He dialyzes at [facility] on MWF. The pt did go to dialysis on 01/17/18. Pt was recently discharged on 01/14/2018 after management of acute on chronic hypoxic respiratory failure secondary to COPD exacerbation and acute influenza B. Pt returned to the hospital yesterday from SNF with worsening dyspnea. He underwent IUF earlier today. We were able to remove 2L before the pt became hypotensive with SBP<90. Pt denies current CP. SOB has improved but not back to baseline. No nausea or vomiting. There is no increases of edema from baseline. - Allergies Allergies: Allergies onion Adverse Reaction (Severe, Verified 01/10/18 20:47) Unknown - Current Medications Current Medications: Current Medications Acetaminophen (Tylenol) 650 mg PO Q6H PRN PRN PRN Reason: Mild Pain (scale 0-3)/T>100.7 Last Admin: 01/19/18 20:07 Dose: 650 mg Albuterol Sulfate (Ventolin Aerosols) 2.5 mg INHALATION Q2H PRN PRN PRN Reason: SHORTNESS OF BREATH Albuterol/Ipratropium (Duoneb) 3 ml INHALATION Q4H.RT [facility] Last Admin: 01/19/18 15:25 Dose: 3 ml Amiodarone HCl (Cordarone) 200 mg PO DAILY [facility] Last Admin: 01/19/18 09:43 Dose: 200 mg Apixaban (Eliquis) 2.5 mg PO BID [facility] Last Admin: 01/19/18 09:43 Dose: 2.5 mg Calcium Acetate (Phoslo Gel Cap) 667 mg PO TIDCM [facility] Last Admin: 01/19/18 18:14 Dose: 667 mg Famotidine (Pepcid) 20 mg PO BID [facility] Last Admin: 01/19/18 09:40 Dose: 20 mg Guaifenesin (Mucinex) 1,200 mg PO BID [facility] Last Admin: 01/19/18 09:43 Dose: 1,200 mg Heparin Sodium (Porcine) () 2,500 units IV UD PRN PRN Reason: HEPARIN FLUSH Hydralazine HCl (Apresoline) 25 mg PO TID [facility] Last Admin: 01/19/18 15:24 Dose: 25 mg Hydroxyzine Pamoate (Vistaril Pamoate Capsule) 25 mg PO QHS [facility] Piperacillin Sod/Tazobactam Sod (Zosyn) 3.375 gm in 50 mls @ 12.5 mls/hr IV Q12 [facility] Last Admin: 01/19/18 09:45 Dose: 12.5 mls/hr Isosorbide Dinitrate (Isordil) 10 mg PO DAILY [facility] Last Admin: 01/19/18 09:42 Dose: 10 mg Loratadine (Claritin) 5 mg PO DAILY [facility] Last Admin: 01/19/18 09:41 Dose: 5 mg Magnesium Hydroxide (Milk Of Magnesia) 30 ml PO DAILY PRN PRN PRN Reason: Constipation Metoclopramide HCl (Metoclopramide Hcl) 5 mg PO BID [facility] Last Admin: 01/19/18 09:42 Dose: 5 mg Metoprolol Tartrate (Lopressor (Beta Rosemarie)) 50 mg PO TID [facility] Last Admin: 01/19/18 15:26 Dose: 50 mg Multivit/Ca Carb/B Cmplx/FA/Prenat (Nephrocaps, Renaphro) 1 capsule PO DAILY [facility] Last Admin: 01/19/18 09:42 Dose: 1 capsule Nortriptyline HCl (Pamelor) 50 mg PO QHS [facility] Ondansetron HCl (Zofran) 4 mg IV Q6H PRN PRN PRN Reason: NAUSEA Last Admin: 01/19/18 07:37 Dose: 4 mg Oxycodone HCl (Oxyir) 5 mg PO Q4H PRN PRN PRN Reason: Moderate Pain (pain scale 4-5) Last Admin: 01/19/18 07:53 Dose: 5 mg Pantoprazole Sodium (Protonix) 40 mg PO BID [facility] Last Admin: 01/19/18 09:41 Dose: 40 mg Prednisone () 20 mg PO DAILY@0800 [facility] Last Admin: 01/19/18 07:37 Dose: 20 mg Promethazine HCl (Phenergan) 12.5 mg IV Q6H PRN PRN PRN Reason: NAUSEA/VOMITING Last Admin: 01/19/18 20:07 Dose: 12.5 mg Senna/Docusate Sodium (Senokot-S, Yasmeen-Colace) 2 tablet PO BID PRN PRN PRN Reason: constipation Sodium Chloride () 5 - 30 ml IV UD PRN PRN Reason: SALINE FLUSH Last Admin: 01/19/18 20:07 Dose: 10 ml Sodium Chloride () 10 ml IV UD PRN PRN Reason: Dialysis Catheter Flush - Past Medical History Past Medical History (Chronic Problems): Chronic Problems (Last Reviewed 01/11/18 @ 03:00 by Reji Combs MD) ESRD (end stage renal disease) (Chronic) ICD extraction (Chronic) MSSA Bacteremia 08/2017 @[facility] Atrial fibrillation (Chronic) FDC current use of anticoagulant (Chronic) Elevated troponin (Chronic) not trending Mitral insufficiency (Chronic) Implantable cardioverter-defibrillator (ICD) in situ (Chronic) implanted in 12/07/2015 at [facility] Sick sinus syndrome (Chronic) S/P dual-chamber Pacemaker/ICD ESRD (end stage renal disease) (Chronic) on HD HTN (hypertension) (Chronic) Pulmonary HTN (Chronic) Anemia with chronic illness (Chronic) ESRD Non-compliance (Chronic) non-compliant with meds and with dialysis Non-compliance with renal dialysis (Chronic) Respiratory failure with hypoxia (Chronic) Bilateral pleural effusion (Chronic) Cardiomyopathy (Chronic) CHF (congestive heart failure) (Chronic) EF 30% Coronary artery arteriosclerosis (Chronic) 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 Paternal History Items: Renal Disease, - - The patient's mother at age of 69 with a history of kidney cancer. Review of Systems Constitutional: Reports: Chills, Malaise, Weakness, Fatigue Eyes: Denies: Blurred vision, Pain, Redness HEENT: Denies: Head Aches, Sinus Congestion, Sinus Drainage Cardiovascular: Reports: Edema, Orthopnea. Denies: Chest Pain, Chest Pressure Respiratory: Reports: Shortness of breath at rest, Shortness of breath upon exertion. Denies: Cough, Pleuritic Pain, Sputum production Gastrointestinal: Denies: Abdominal Pain, Nausea, Vomiting Genitourinary: Denies: Dysuria Musculoskeletal: Denies: Joint Pain, Joint Tenderness Skin: Denies: Rash, Wounds Neurological: Denies: Numbness, Tingling, Focal weakness Hematologic/ Lymphatic: Denies: Easy Bruising, Easy Bleeding - Physical Exam General: Alert, Oriented x3 HEENT: Atraumatic, EOMI Oral: Moist Mucosa Neck: Supple Lungs: Diminished - at bases, limited air exchange. Cardiovascular: Normal S1, Normal S2, No murmurs Abdomen: Bowel Sounds Present, Soft, Non Tender Extremities: Edema - 2+ Skin: No rashes Musculoskeletal: No Tenderness to Palpation of Joints or Extremities Vital Signs Temp Pulse Resp BP Pulse Ox 97.2 F L 80 16 131/89 H 95 01/19/18 15:22 01/19/18 15:26 01/19/18 15:22 01/19/18 15:26 01/19/18 15:22 Oxygen Flow Rate (L/min) 4 Oxygen Delivery Method Bi-pap Weight: 58.5 kg Body Mass Index (BMI) 20.2 Intake and Output for Last 24 Hours 01/17/18 01/18/18 01/19/18 23:59 23:59 23:59 Intake Total 924 / 924 Balance 924 / 924 Microbiology Past 72 Hours 01/19/18 02:15 Respiratory Panel (PCR) - Final Mucosa - Nasopharyngeal Laboratory Tests Past 24 Hrs 01/19/18 01/19/18 01/19/18 02:00 04:35 04:35 WBC Cancelled Corrected WBC Cancelled RBC Cancelled Hgb Cancelled Hct Cancelled MCV Cancelled MCH Cancelled MCHC Cancelled RDW Cancelled RDW Differential Cancelled Plt Count Cancelled MPV Cancelled Differential Comment Diff Path Review Cancelled Specimen Type Sample Site pH Bicarbonate Actual POC Total CO2 Base Excess O2 Saturation O2 % ABG pCO2 ABG pO2 Dhruv Test Respiration Rate O2 Delivery Device EPAP IPAP Blood Gas Notified Whom Blood Gas Notified Time Sodium Cancelled Potassium Cancelled Chloride Cancelled Carbon Dioxide Cancelled Anion Gap Cancelled BUN Cancelled Creatinine Cancelled Estim Creat Clear Calc Cancelled Est GFR (MDRD) Af Amer Cancelled Est GFR (MDRD) Non-Af Cancelled BUN/Creatinine Ratio Cancelled Glucose Cancelled Calcium Cancelled Random Vancomycin MRSA (PCR) POSITIVE H 01/19/18 01/19/18 01/19/18 05:19 06:19 06:19 WBC 23.1 H Corrected WBC RBC 3.94 L Hgb 10.6 L Hct 36.2 L MCV 91.9 MCH 26.9 L MCHC 29.3 L RDW 20.1 H RDW Differential 61.9 H Plt Count 298 MPV 9.3 Differential Comment Diff Path Review Specimen Type ART Sample Site L Radial pH 7.34 L Bicarbonate Actual 30.7 H POC Total CO2 32 Base Excess 5 H O2 Saturation 88 L O2 % 35 ABG pCO2 56.5 H ABG pO2 59 L Dhruv Test POS Respiration Rate 12 O2 Delivery Device Bi / C PAP EPAP 8 IPAP 16 Blood Gas Notified Whom HOSP Blood Gas Notified Time 516 Sodium 131 L Potassium 4.6 Chloride 94 L Carbon Dioxide 28.0 Anion Gap 9 BUN 36 H Creatinine 3.72 H Estim Creat Clear Calc 17.91 Est GFR (MDRD) Af Amer 22 L Est GFR (MDRD) Non-Af 18 L BUN/Creatinine Ratio 9.7 L Glucose 127 H Calcium 9.7 Random Vancomycin MRSA (PCR) 01/19/18 06:19 WBC Corrected WBC RBC Hgb Hct MCV MCH MCHC RDW RDW Differential Plt Count MPV Differential Comment Diff Path Review Specimen Type Sample Site pH Bicarbonate Actual POC Total CO2 Base Excess O2 Saturation O2 % ABG pCO2 ABG pO2 Dhruv Test Respiration Rate O2 Delivery Device EPAP IPAP Blood Gas Notified Whom Blood Gas Notified Time Sodium Potassium Chloride Carbon Dioxide Anion Gap BUN Creatinine Estim Creat Clear Calc Est GFR (MDRD) Af Amer Est GFR (MDRD) Non-Af BUN/Creatinine Ratio Glucose Calcium Random Vancomycin 17.2 H MRSA (PCR) POC Glucose 01/19/18 01/19/18 01/19/18 17:08 11:44 07:01 POC Glucose 119 H 135 H 121 H Assessment/Plan All Active Problems (Last Reviewed 01/11/18 @ 03:00 by Reji Combs MD) HCAP (healthcare-associated pneumonia) (Ruled-out) COPD (chronic obstructive pulmonary disease) (Acute) Influenza B (Acute) Lung nodule (Resolved) Ulcer of foot (Resolved) 1. ESRD. HD MWF. Normally dialyzes at [facility]. Dr. Mejia is his primary pump erector. IUF earlier for volume OL/acute respiratory failure. Able to remove 2L. Will arrange for HD and UF again tomorrow on his regular schedule. 2. Acute hypoxic respiratory failure. Multifactorial: COPD exacerbation and fluid OL. O>I with HD/UF. Pulmonary treatment of COPD as per Dr. Melton. 3. HTN. BP has been intermittently low. Hold BP meds prior to HD to get more effective UF tomorrow. 4. SHPT. Calcium acetate with meals. Check ca/phos. 5. Anemia. MONE with HD.
[2018-01-19] MEDS: Nortriptyline 25 MG Capsule 50 MG PO (22:36)
[2018-01-19] MEDS: hydrOXYzine PAM 25 MG Capsule PO (22:37)
[2018-01-20] VITALS (23 sets, daily range): BP systolic 92–121; BP diastolic 51–91; PULSE 63–96; RESP 12–20; TEMP 36.3–37; O2SAT 90–99
[2018-01-20 00:51] LABS: Bedside Glucose 111 mg/dL (70-110)
[2018-01-20] MEDS: Metoprolol Tartrate 50 MG Tablet PO ×3 (05:10→21:02)
[2018-01-20 06:18] LABS: Anion Gap 17 (5-15); BUN 49 mg/dL (7-18); Calcium,Total 9.6 mg/dL (8.5-10.1); Chloride 92 mmol/L (98-107); Creatinine, Serum 4.08 mg/dL (0.70-1.30); EST Glomerular Filtration Rate 16 mL/min (>60); Est Glom Filt Rate - Afr Amer 19 mL/min (>60); Estimated Creatinine Clearance 16.33 ml/min; Glucose 106 mg/dL (74-106); Potassium 5.2 mmol/L (3.5-5.1); Sodium Level 135 mmol/L (136-145)
[2018-01-20 06:22] LABS: Phosphorus 5.1 mg/dL (2.5-4.9)
[2018-01-20 06:26] LABS: Absolute Lymphocyte Count 0.65 X10^3/ul (0.83-4.51); Absolute Neutrophil Count 27.5 X10^3/uL (2.0-7.7); Basophil# 0.01 X10^3/uL; Hematocrit 35.3 % (40-54); Hemoglobin 10.6 g/dl (13.0-16.5); Lymphocyte # 0.65 X10^3/ul (4.0); Lymphocyte % 2.2 % (19-41); Mean Corpuscular Hgb 27.6 pg (27.0-32.0); Mean Corpuscular Volume 91.9 fL (80-94); Mean Platelet Vol. 9.2 fl (6.2-12.0); Monocyte# 1.31 X10^3/uL; Monocyte% 4.4 % (0-10); Neutrophil # 27.46 X10^3/uL (2.7-7.7); Neutrophil % 92.9 % (47-70); Platelet Count 361 K/mm3 (150-450); RBC Distribution Width CV 20.6 % (11.6-14.6); RBC Distribution Width SD 62.6 fl (35.1-43.9); Red Blood Count 3.84 M/mm3 (4.6-6.2); White Blood Count 29.6 K/mm3 (4.4-11.0)
[2018-01-20 06:29] LABS: Vancomycin, Random Level 12.3 ug/mL (0.0-15.0)
[2018-01-20 06:39] LABS: Differential Indicated SCAN CRITERIA MET; POSITIVE COUNT NO; POSITIVE DIFFERENTIAL YES; POSITIVE MORPHOLOGY YES
[2018-01-20] MEDS: Ipratropium/Albuterol Sulfate 3 ML AMPUL.NEB INHALATION ×5 (06:49→22:59)
--- NOTE | 2018-01-20 06:54 | PCM.RX.CS ---
Consult Pharmacy has been consulted to manage selected antiobiotic: Vancomycin Type of Consult: Follow-up Suspected Infection: Pneumonia Prior Doses of Antibiotics Received/Current Regimen: Medications Vancomycin HCl (Vancomycin) 1,000 mg in 200 mls @ 200 mls/hr IV X1 ONE Stop: 01/20/18 07:59 Labs: Sodium 135 mmol/L (136-145) L 01/20/18 05:30 Potassium 5.2 mmol/L (3.5-5.1) H 01/20/18 05:30 Chloride 92 mmol/L (98-107) L 01/20/18 05:30 Carbon Dioxide 26.0 mmol/L (21.0-32.0) 01/20/18 05:30 Anion Gap 17 (5-15) H 01/20/18 05:30 BUN 49 mg/dL (7-18) H 01/20/18 05:30 Creatinine 4.08 mg/dL (0.70-1.30) H 01/20/18 05:30 Est GFR (MDRD) Af Amer 19 mL/min (>60) L 01/20/18 05:30 Est GFR (MDRD) Non-Af 16 mL/min (>60) L 01/20/18 05:30 BUN/Creatinine Ratio 12.0 RATIO (10-20) 01/20/18 05:30 Glucose 106 mg/dL (74-106) 01/20/18 05:30 Random Vancomycin 12.3 ug/mL (0.0-15.0) 01/20/18 05:30 Microbiology: Microbiology 01/19/18 02:15 Mucosa - Nasopharyngeal Respiratory Panel (PCR) - Final Weight used for dosin.5 kg Estimated Creatinine Clearance: 16.3 Goal Trough: 10-15 mcg/mL Pharmacy Plan for Drug Dosing: Pharmacy Service will continue to monitor and adjust dosing as required. Follow-Up Labs: Trough Vancomycin - random Labs to be done on [date and time ordered]: 01/21/18 @0600
[2018-01-20 06:55] LABS: Bedside Glucose 83 mg/dL (70-110)
[2018-01-20 06:59] LABS: Hypochromasia 3+
[2018-01-20 07:00] LABS: Anisocytosis 2+; Differential Comment SCANNED
--- NOTE | 2018-01-20 07:07 | PCM.PROGNOTE ---
Subjective: Patient did well overnight. Patient is back down to baseline nasal cannula oxygen following ultrafiltration overnight with 2 L volume removal. Patient reports general malaise today, but has no specific complaints. Patient was up in the chair on my evaluation. - Physical Exam General: Alert, Oriented x3, Cooperative, No apparent distress, - - Speaks in full sentences. HEENT: Atraumatic, PERRLA, EOMI, Normocephalic, - - No scleral icterus or injection noted. Oral: Moist Mucosa, No Gingival or Mucosal Lesions/ Ulcerations, - - Poor dentition. Neck: Supple, No JVD, No Nodes, Trachea Midline Lungs: No rhonchi, No wheeze, No rales, Diminished - Bilateral bases, - - Symmetric expansion. Slight dullness to percussion at the bases Cardiovascular: Normal S1, Normal S2, Irregular Rate, Murmur, No rub noted, No Gallop Abdomen: Bowel Sounds Present, Soft, Non Tender, Non-Distended Extremities: No cyanosis, No edema, Capillary Refill Less than 3 Seconds, Clubbing Skin: - - No significant change compared to previous Musculoskeletal: No Tenderness to Palpation of Joints or Extremities, No Muscle Wasting Lymphatic: No Cervical, Supraclavicular, or Inguinal Adenopathy Neurological: Cranial nerves II-XII grossly intact, Neuro grossly intact, Motor Exam 5/5 strength throughout Psych/Mental Status: Alert and oriented to time, place, person, mood and affect Vital Signs Temp Pulse Resp BP Pulse Ox 36.8 C 88 18 104/91 H 95 01/20/18 04:00 01/20/18 05:10 01/20/18 04:00 01/20/18 05:10 01/20/18 04:00 Oxygen Flow Rate (L/min) 4 Oxygen Delivery Method Nasal Cannula Weight: 58.4 kg Body Mass Index (BMI) 20.2 Intake and Output for Last 24 Hours 01/18/18 01/19/18 01/20/18 23:59 23:59 23:59 Intake Total 924 / 924 934 / 934 Balance 924 / 924 934 / 934 Microbiology Past 72 Hours 01/19/18 02:15 Respiratory Panel (PCR) - Final Mucosa - Nasopharyngeal Laboratory Tests Past 24 Hrs 01/19/18 01/19/18 01/19/18 06:19 06:19 06:19 WBC 23.1 H RBC 3.94 L Hgb 10.6 L Hct 36.2 L MCV 91.9 MCH 26.9 L MCHC 29.3 L RDW 20.1 H RDW Differential 61.9 H Plt Count 298 MPV 9.3 Immature Gran % (Auto) Neut % (Auto) Lymph % (Auto) [place] % (Auto) Eos % (Auto) Baso % (Auto) Absolute Neuts (auto) Absolute Lymphs (auto) Total Counted Differential Comment Hypochromasia Anisocytosis Sodium 131 L Potassium 4.6 Chloride 94 L Carbon Dioxide 28.0 Anion Gap 9 BUN 36 H Creatinine 3.72 H Estim Creat Clear Calc 17.91 Est GFR (MDRD) Af Amer 22 L Est GFR (MDRD) Non-Af 18 L BUN/Creatinine Ratio 9.7 L Glucose 127 H Calcium 9.7 Phosphorus Random Vancomycin 17.2 H 01/20/18 01/20/18 01/20/18 05:30 05:30 05:30 WBC 29.6 H RBC 3.84 L Hgb 10.6 L Hct 35.3 L MCV 91.9 MCH 27.6 MCHC 30.0 L RDW 20.6 H RDW Differential 62.6 H Plt Count 361 MPV 9.2 Immature Gran % (Auto) 0.500 Neut % (Auto) 92.9 H Lymph % (Auto) 2.2 L [place] % (Auto) 4.4 Eos % (Auto) 0.0 Baso % (Auto) 0.0 Absolute Neuts (auto) 27.5 H Absolute Lymphs (auto) 0.65 L Total Counted Not Reportable Differential Comment SCANNED Hypochromasia 3+ Anisocytosis 2+ Sodium 135 L Potassium 5.2 H Chloride 92 L Carbon Dioxide 26.0 Anion Gap 17 H BUN 49 H Creatinine 4.08 H Estim Creat Clear Calc 16.33 Est GFR (MDRD) Af Amer 19 L Est GFR (MDRD) Non-Af 16 L BUN/Creatinine Ratio 12.0 Glucose 106 Calcium 9.6 Phosphorus Random Vancomycin 12.3 01/20/18 05:30 WBC RBC Hgb Hct MCV MCH MCHC RDW RDW Differential Plt Count MPV Immature Gran % (Auto) Neut % (Auto) Lymph % (Auto) [place] % (Auto) Eos % (Auto) Baso % (Auto) Absolute Neuts (auto) Absolute Lymphs (auto) Total Counted Differential Comment Hypochromasia Anisocytosis Sodium Potassium Chloride Carbon Dioxide Anion Gap BUN Creatinine Estim Creat Clear Calc Est GFR (MDRD) Af Amer Est GFR (MDRD) Non-Af BUN/Creatinine Ratio Glucose Calcium Phosphorus 5.1 H Random Vancomycin POC Glucose 01/20/18 01/20/18 01/19/18 06:48 00:46 17:08 POC Glucose 83 111 H 119 H 01/19/18 11:44 POC Glucose 135 H Medical Necessity - Tobacco Use Smoking Status: Former smoker Assessment/Plan All Active Problems (Last Reviewed 01/11/18 @ 03:00 by Reji Combs MD) HCAP (healthcare-associated pneumonia) (Ruled-out) COPD (chronic obstructive pulmonary disease) (Acute) Influenza B (Acute) Lung nodule (Resolved) Ulcer of foot (Resolved) RECOMMENDATIONS: 1. Continue scheduled bronchodilator, transition to prednisone and wean per previous plan 2. Increase activity as tolerated 3. Wean supplemental oxygen as tolerated. 4. Await hemodialysis decision per nephrology. 5. Continue Eliquis as ordered. 6. Potentially discontinue antibiotics if culture negative at 48 hours IMPRESSIONS: 1. Acute on chronic hypoxemic respiratory failure, likely secondary to acute on chronic systolic congestive heart failure Patient's chest x-ray appears grossly unchanged compared to previous. Patient did have a recent infection with influenza B and would be at risk for MRSA superinfection. Patient is not reporting a significant productive cough, which would be typical of staph pneumonia. Patient to have hemodialysis today with additional fluid removal. If culture negative at 48 hours, likely okay to discontinue antibiotics from my perspective. Patient has been transitioned to prednisone therapy and this can be weaned per previous plan. Do not believe patient is in a repeat exacerbation of COPD 2. Paroxysmal atrial fibrillation Continue Eliquis, amiodarone and beta-michael per outpatient regimen. 3. End-stage renal disease on hemodialysis/sick sinus syndrome/pulmonary hypertension/recent influenza B/secondary hyperparathyroidism/COPD Complicates care, management, recovery and prognosis. Continue hemodialysis per nephrology recommendations. This note was generated with [employer] software. It may contain incorrect words, spelling, and punctuation that were not noted in checking the note before signing. Code Visit Inpatient E&M: 14879 Subs Hosp L2
--- NOTE | 2018-01-20 07:59 | CPS ---
pt was offered to go back on Bipap but refused at this time
[2018-01-20] MEDS: Loratadine 10 MG Tablet 5 MG PO (08:04)
[2018-01-20] MEDS: Vancomycin IV 1,000 MG/200 ML BAG 200 MG IV (08:04)
[2018-01-20] MEDS: Calcium Acetate 667 MG Capsule PO ×2 (08:04→16:30)
[2018-01-20] MEDS: predniSONE 20 MG Tablet PO (08:04)
[2018-01-20] MEDS: Amiodarone 200 MG Tablet PO (08:05)
[2018-01-20] MEDS: Metoclopramide 5 MG TABLET PO ×2 (08:05→21:02)
[2018-01-20] MEDS: APIXABAN 2.5 MG TABLET PO ×2 (08:05→21:02)
[2018-01-20] MEDS: Isosorbide DN 10 MG Tablet PO (08:05)
[2018-01-20] MEDS: Famotidine 20 MG Tablet PO ×2 (08:06→21:02)
[2018-01-20] MEDS: Folic Acid/Vitamin B Comp W-C 1 Capsule 1 CAP PO (08:06)
[2018-01-20] MEDS: guaiFENesin 1,200 MG Tablet 1200 MG PO ×2 (08:06→21:02)
[2018-01-20] MEDS: Pantoprazole Sodium 40 MG Tablet PO ×2 (08:06→21:02)
--- NOTE | 2018-01-20 08:10 | NURSING ---
medications given early per pt request to take with breakfast
[2018-01-20] MEDS: oxyCODONE 5 MG Tablet PO (09:31)
--- NOTE | 2018-01-20 09:43 | CASEMGMT ---
Patient is from [facility]. SW faxed information to [facility]. SW will fax PT/OT evaluations once completed so they can start pre-cert. Rose NAVA MSW
--- NOTE | 2018-01-20 10:45 | CPS ---
Pt demetrius aerosol well. Pt receiving dialysis at this time. Pt sleeping throughout aerosol. Pt was offered Bipap for napping. Pt allowed Bipap to be placed on him but only demetrius it for 5 min. Bipap mask removed per pt request and pt placed back on nasal cannula. Nurse aware.
--- NOTE | 2018-01-20 12:42 | PCM.PN.BLA ---
Progress Note patient was seen on dialysis. appears dyspneic significant LE edema HR is 80s on machine UF 2 L as tolerated somewhat confused
--- NOTE | 2018-01-20 13:41 | PCM.PROGNOTE ---
<Nehemiah Correia - Last Filed: 01/20/18 13:41> Subjective: Pt continues to be very confused this morning. He has been reportedly hallucinating all week. Today he was making motions like he was eating and said he was eating but there was no food present. There was a paper on the ground that he thought was moving itself. He thought he had pills in his hand which were not there. He has no increased SOB. He is at his baseline o2. He has no abdominal pain. No tremor. No chest pain. No fever or chills. No cough. He is very edematous. - Physical Exam General: Alert, Confused HEENT: Atraumatic, PERRLA, EOMI, Normocephalic Neck: Supple, No JVD, Negative Carotid Bruits Lungs: Clear to auscultation, Normal air movement Cardiovascular: Regular rate, No murmurs Abdomen: Bowel Sounds Present, Soft, Non Tender Extremities: Capillary Refill Less than 3 Seconds, Edema - 3+ pitting edema BLE. Skin: No rashes, No breakdown Musculoskeletal: No Tenderness to Palpation of Joints or Extremities Neurological: Cranial nerves II-XII grossly intact Psych/Mental Status: Hallucinations Vital Signs Temp Pulse Resp BP Pulse Ox 98.6 F 83 16 99/54 L 92 01/20/18 08:11 01/20/18 11:26 01/20/18 10:25 01/20/18 13:27 01/20/18 10:25 Oxygen Flow Rate (L/min) 4 Oxygen Delivery Method Nasal Cannula Weight: 128 lb 11.999 oz Body Mass Index (BMI) 20.2 Intake and Output for Last 24 Hours 01/18/18 01/19/18 01/20/18 23:59 23:59 23:59 Intake Total 924 / 924 1478 / 1478 Balance 924 / 924 1478 / 1478 Microbiology Past 72 Hours 01/19/18 02:15 Respiratory Panel (PCR) - Final Mucosa - Nasopharyngeal Laboratory Tests Past 24 Hrs 01/20/18 01/20/18 01/20/18 05:30 05:30 05:30 WBC 29.6 H RBC 3.84 L Hgb 10.6 L Hct 35.3 L MCV 91.9 MCH 27.6 MCHC 30.0 L RDW 20.6 H RDW Differential 62.6 H Plt Count 361 MPV 9.2 Immature Gran % (Auto) 0.500 Neut % (Auto) 92.9 H Lymph % (Auto) 2.2 L [place] % (Auto) 4.4 Eos % (Auto) 0.0 Baso % (Auto) 0.0 Absolute Neuts (auto) 27.5 H Absolute Lymphs (auto) 0.65 L Total Counted Not Reportable Differential Comment SCANNED Hypochromasia 3+ Anisocytosis 2+ Sodium 135 L Potassium 5.2 H Chloride 92 L Carbon Dioxide 26.0 Anion Gap 17 H BUN 49 H Creatinine 4.08 H Estim Creat Clear Calc 16.33 Est GFR (MDRD) Af Amer 19 L Est GFR (MDRD) Non-Af 16 L BUN/Creatinine Ratio 12.0 Glucose 106 Calcium 9.6 Phosphorus Random Vancomycin 12.3 01/20/18 05:30 WBC RBC Hgb Hct MCV MCH MCHC RDW RDW Differential Plt Count MPV Immature Gran % (Auto) Neut % (Auto) Lymph % (Auto) [place] % (Auto) Eos % (Auto) Baso % (Auto) Absolute Neuts (auto) Absolute Lymphs (auto) Total Counted Differential Comment Hypochromasia Anisocytosis Sodium Potassium Chloride Carbon Dioxide Anion Gap BUN Creatinine Estim Creat Clear Calc Est GFR (MDRD) Af Amer Est GFR (MDRD) Non-Af BUN/Creatinine Ratio Glucose Calcium Phosphorus 5.1 H Random Vancomycin POC Glucose 01/20/18 01/20/18 01/19/18 06:48 00:46 17:08 POC Glucose 83 111 H 119 H Medical Necessity - Tobacco Use Smoking Status: Former smoker Assessment/Plan All Active Problems (Last Reviewed 01/11/18 @ 03:00 by Reji Combs MD) HCAP (healthcare-associated pneumonia) (Ruled-out) COPD (chronic obstructive pulmonary disease) (Acute) Influenza B (Acute) Lung nodule (Resolved) Ulcer of foot (Resolved) 1. Acute hypoxic hypercapneic respiratory failure 2/2 acute diastolic CHF exacerbation - still very edmatous, however he is back to baseline o2. Continue Dialysis as directed by Dr. Mejia. He is at baseline breathing, lungs are clear. Pulm following. Zosyn continued until blood cultures negative x48 hours. Pt recently had the flu, ruled out now with negative respiratory panel. 2. COPD - stable. continue current therapy 3. Acute metabolic encephalopathy - hallucinations. Possibly uremic, hypercarbic etiologies. 4. ESRD - dialysis yesterday and today per Dr. Mejia. 5. Chronic leukocytosis - unspecified. 6. Afib - rate controlled. metoprolol / eliquis. 7. Anemia of chronic dz - stable. DVT ppx: eliquis DC planning: return to SNF when stable, possibly tomorrow. Will await Blood Cx This patient was seen by Nehemiah Correia PA-C under the supervision of Doctor Valente. <Oniel Victor - Last Filed: 01/20/18 15:16> - Physical Exam Vital Signs Temp Pulse Resp BP Pulse Ox 97.9 F 86 16 108/51 L 94 01/20/18 14:10 01/20/18 15:00 01/20/18 14:25 01/20/18 14:10 01/20/18 14:10 Oxygen Flow Rate (L/min) 4 Oxygen Delivery Method Nasal Cannula Weight: 58.4 kg Body Mass Index (BMI) 20.2 Intake and Output for Last 24 Hours 01/18/18 01/19/18 01/20/18 23:59 23:59 23:59 Intake Total 924 / 924 1478 / 1478 Balance 924 / 924 1478 / 1478 Microbiology Past 72 Hours 01/19/18 02:15 Respiratory Panel (PCR) - Final Mucosa - Nasopharyngeal Laboratory Tests Past 24 Hrs 01/20/18 01/20/18 01/20/18 05:30 05:30 05:30 WBC 29.6 H RBC 3.84 L Hgb 10.6 L Hct 35.3 L MCV 91.9 MCH 27.6 MCHC 30.0 L RDW 20.6 H RDW Differential 62.6 H Plt Count 361 MPV 9.2 Immature Gran % (Auto) 0.500 Neut % (Auto) 92.9 H Lymph % (Auto) 2.2 L [place] % (Auto) 4.4 Eos % (Auto) 0.0 Baso % (Auto) 0.0 Absolute Neuts (auto) 27.5 H Absolute Lymphs (auto) 0.65 L Total Counted Not Reportable Differential Comment SCANNED Hypochromasia 3+ Anisocytosis 2+ Sodium 135 L Potassium 5.2 H Chloride 92 L Carbon Dioxide 26.0 Anion Gap 17 H BUN 49 H Creatinine 4.08 H Estim Creat Clear Calc 16.33 Est GFR (MDRD) Af Amer 19 L Est GFR (MDRD) Non-Af 16 L BUN/Creatinine Ratio 12.0 Glucose 106 Calcium 9.6 Phosphorus Random Vancomycin 12.3 01/20/18 05:30 WBC RBC Hgb Hct MCV MCH MCHC RDW RDW Differential Plt Count MPV Immature Gran % (Auto) Neut % (Auto) Lymph % (Auto) [place] % (Auto) Eos % (Auto) Baso % (Auto) Absolute Neuts (auto) Absolute Lymphs (auto) Total Counted Differential Comment Hypochromasia Anisocytosis Sodium Potassium Chloride Carbon Dioxide Anion Gap BUN Creatinine Estim Creat Clear Calc Est GFR (MDRD) Af Amer Est GFR (MDRD) Non-Af BUN/Creatinine Ratio Glucose Calcium Phosphorus 5.1 H Random Vancomycin POC Glucose 01/20/18 01/20/18 01/19/18 06:48 00:46 17:08 POC Glucose 83 111 H 119 H Assessment/Plan This patient was seen in conjunction with Nehemiah Correia PA-C . I have independently interviewed and examined the patient and reviewed pertinent historical, laboratory, and other data. Please refer to Nehemiah Correia PA-C note for details of this patient's presentation, findings, and recommendations. I have reviewed Nehemiah Correia PA-C note and concur with documented findings. In brief, patient is an 57 -year-old M with significant for end-stage renal disease on hemodialysis, paroxysmal A. fib chronic pleural effusion who presented with progressive shortness of breath Physical Examination: GENERAL: Patient appears delirious HEENT: Clear conjunctiva, NECK; supple, normal thyroid, CHEST: Diminished to auscultation bilaterally, HEART: Regular S1 S2, no audible murmurs ABDOMEN: soft, normoactive bowel sounds, MEDICAL POLICY SPECIALIST: Awake; confused SKIN: No Rash Assessment: 1. Metabolic encephalopathy 2. Acute hypoxic respiratory failure secondary to COPD patient is on baseline home O2 3. Acute on chronic systolic heart failure with ejection fraction of 36% 4. Cardiomyopathy status post AICD placement with subsequent removal as a result of MSSA bacteremia 5. End-stage renal disease on hemodialysis on Wednesdays and Fridays 6. Anemia secondary to anemia of chronic disorder 7. Hypertension 8. GERD 9. Paroxysmal atrial fibrillation on Eliquis Recommendations: 1. I have discussed the results of my overview and impressions with the patient 2. Options for management were reviewed Code Visit Inpatient E&M: 38485 Subs Hosp L3
--- NOTE | 2018-01-20 13:47 | DIALYSIS ---
HD x 3.5 hours complete. Tolerated tx fairly well. Ran on 2k bath. UF of 2000ml. Used right chest wall catheter. Catheter closed with heparin per fill volume. Report was given to ERNST Hollis.
[2018-01-20] MEDS: 0.9% NaCl Peripheral Flush Adult/Peds IV ×2 (14:07→14:11)
[2018-01-20] MEDS: Piperacil/Tazobactam 3.375 GM/50 ML ML IV ×2 (14:07→21:05)
[2018-01-20] MEDS: Heparin 10,000 UNITS/10 ML Vial IV (14:08)
[2018-01-20] MEDS: Heparin 10,000 UNITS/10 ML Vial 5500 UNITS IV (14:09)
--- NOTE | 2018-01-20 15:41 | CASEMGMT ---
SARAHY faxed PT/OT evaluations to [facility] to start the pre-cert. SARAHY also called Britney at [facility] and asked her to start the pre-cert. Plan: d/c back to [facility] pending insurance approval Rose NAVA MSW
[2018-01-20] MEDS: hydrOXYzine PAM 25 MG Capsule PO (21:02)
[2018-01-20] MEDS: Nortriptyline 25 MG Capsule 50 MG PO (21:02)
[2018-01-21] VITALS (12 sets, daily range): BP systolic 98–120; BP diastolic 56–95; PULSE 76–96; RESP 18–20; TEMP 35.6–36.8; O2SAT 94–96
[2018-01-21] MEDS: Acetaminophen 325 MG Tablet 650 MG PO (02:14)
[2018-01-21] MEDS: Ipratropium/Albuterol Sulfate 3 ML AMPUL.NEB INHALATION ×4 (03:48→14:26)
[2018-01-21] MEDS: Metoprolol Tartrate 50 MG Tablet PO ×2 (04:52→14:24)
--- NOTE | 2018-01-21 05:07 | CPS ---
pt refused use of bipap
[2018-01-21 05:43] LABS: Absolute Lymphocyte Count 1.34 X10^3/ul (0.83-4.51); Absolute Neutrophil Count 24.9 X10^3/uL (2.0-7.7); Eosinophil# 0.01 X10^3/uL; Hematocrit 36.9 % (40-54); Hemoglobin 10.9 g/dl (13.0-16.5); Lymphocyte # 1.34 X10^3/ul (4.0); Lymphocyte % 4.9 % (19-41); Mean Corp Hgb Conc 29.5 g/gl (32-36); Mean Corpuscular Hgb 27.2 pg (27.0-32.0); Mean Platelet Vol. 9.3 fl (6.2-12.0); Monocyte# 1.15 X10^3/uL; Monocyte% 4.2 % (0-10); Neutrophil # 24.87 X10^3/uL (2.7-7.7); Neutrophil % 90.5 % (47-70); Platelet Count 303 K/mm3 (150-450); RBC Distribution Width CV 20.5 % (11.6-14.6); RBC Distribution Width SD 65.5 fl (35.1-43.9); Red Blood Count 4.01 M/mm3 (4.6-6.2); White Blood Count 27.5 K/mm3 (4.4-11.0)
[2018-01-21 05:46] LABS: Differential Indicated SCAN CRITERIA MET; POSITIVE COUNT NO; POSITIVE DIFFERENTIAL YES; POSITIVE MORPHOLOGY YES
[2018-01-21 05:55] LABS: Vancomycin, Random Level 17.5 ug/mL (0.0-15.0)
[2018-01-21 06:35] LABS: Anisocytosis 1+; Differential Comment SCAN; Hypochromasia 1+; Microcytosis 1+; Polychromasia 1+
--- NOTE | 2018-01-21 06:42 | PCM.RX.CS ---
Consult Pharmacy has been consulted to manage selected antiobiotic: Vancomycin Type of Consult: Follow-up Suspected Infection: Pneumonia Prior Doses of Antibiotics Received/Current Regimen: Medications Vancomycin HCl (Vancomycin) 1,000 mg in 200 mls @ 200 mls/hr IV X1 ONE Stop: 01/21/18 07:59 Discontinued Medications Vancomycin HCl (Vancomycin) 1,000 mg in 200 mls @ 200 mls/hr IV X1 ONE Stop: 01/20/18 07:59 Last Admin: 01/20/18 08:04 Dose: 200 mls/hr Labs: Sodium 135 mmol/L (136-145) L 01/20/18 05:30 Potassium 5.2 mmol/L (3.5-5.1) H 01/20/18 05:30 Chloride 92 mmol/L (98-107) L 01/20/18 05:30 Carbon Dioxide 26.0 mmol/L (21.0-32.0) 01/20/18 05:30 Anion Gap 17 (5-15) H 01/20/18 05:30 BUN 49 mg/dL (7-18) H 01/20/18 05:30 Creatinine 4.08 mg/dL (0.70-1.30) H 01/20/18 05:30 Est GFR (MDRD) Af Amer 19 mL/min (>60) L 01/20/18 05:30 Est GFR (MDRD) Non-Af 16 mL/min (>60) L 01/20/18 05:30 BUN/Creatinine Ratio 12.0 RATIO (10-20) 01/20/18 05:30 Glucose 106 mg/dL (74-106) 01/20/18 05:30 Random Vancomycin 17.5 ug/mL (0.0-15.0) H 01/21/18 05:06 Microbiology: Microbiology 01/19/18 02:15 Mucosa - Nasopharyngeal Respiratory Panel (PCR) - Final Weight used for dosin.5 kg Goal Trough: 10-15 mcg/mL Pharmacy Plan for Drug Dosing: Random trough level returned at 17.5. Ordered another 1000mg vancomycin dose x1 (due to CrCl<20), and will draw another random trough 01/22/18. Pharmacy Service will continue to monitor and adjust dosing as required. Follow-Up Labs: Trough Vancomycin - random Labs to be done on [date and time ordered]: 01/22/18 @0600
[2018-01-21 06:59] LABS: Anion Gap 18 (5-15); BUN 31 mg/dL (7-18); BUN/Creat Ratio 10.6 RATIO (10-20); Calcium,Total 9.2 mg/dL (8.5-10.1); Chloride 93 mmol/L (98-107); Creatinine, Serum 2.93 mg/dL (0.70-1.30); EST Glomerular Filtration Rate 24 mL/min (>60); Est Glom Filt Rate - Afr Amer 29 mL/min (>60); Glucose 67 mg/dL (74-106); Sodium Level 132 mmol/L (136-145)
[2018-01-21] MEDS: 0.9% NaCl Peripheral Flush Adult/Peds IV (08:21)
[2018-01-21] MEDS: Vancomycin IV 1,000 MG/200 ML BAG 200 MG IV (08:21)
[2018-01-21] MEDS: predniSONE 20 MG Tablet PO (08:22)
[2018-01-21] MEDS: Calcium Acetate 667 MG Capsule PO (08:22)
[2018-01-21] MEDS: Loratadine 10 MG Tablet 5 MG PO (08:23)
[2018-01-21] MEDS: Isosorbide DN 10 MG Tablet PO (08:23)
[2018-01-21] MEDS: Amiodarone 200 MG Tablet PO (08:23)
[2018-01-21] MEDS: APIXABAN 2.5 MG TABLET PO (08:23)
[2018-01-21] MEDS: guaiFENesin 1,200 MG Tablet 1200 MG PO (08:24)
[2018-01-21] MEDS: Pantoprazole Sodium 40 MG Tablet PO (08:24)
[2018-01-21] MEDS: Metoclopramide 5 MG TABLET PO (08:24)
[2018-01-21] MEDS: Folic Acid/Vitamin B Comp W-C 1 Capsule 1 CAP PO (08:24)
[2018-01-21] MEDS: Famotidine 20 MG Tablet PO (08:25)
--- NOTE | 2018-01-21 10:27 | PCM.PROGNOTE ---
Subjective: Patient did okay overnight. Patient continues to report some dyspnea on exertion and feels overall malaise today. Patient denies any cough. Patient has had some lower extremity swelling. - Physical Exam General: Alert, Oriented x3, Cooperative, No apparent distress, - - Appears older than stated age. Speaking in full sentences. HEENT: Atraumatic, PERRLA, EOMI, Normocephalic, - - Slight scleral injection without icterus Oral: Moist Mucosa, No Gingival or Mucosal Lesions/ Ulcerations, - - Fair dentition Neck: Supple, No JVD, No Nodes, Trachea Midline Lungs: No rhonchi, No wheeze, Diminished - Bilaterally, - - Symmetric expansion. Cardiovascular: Normal S1, Normal S2, Irregular Rate, Murmur, No rub noted, No Gallop Abdomen: Bowel Sounds Present, Soft, Non Tender, Non-Distended Extremities: No cyanosis, Clubbing, Edema - Bilateral lower extremities Skin: No rashes, No breakdown Musculoskeletal: No Tenderness to Palpation of Joints or Extremities Lymphatic: No Cervical, Supraclavicular, or Inguinal Adenopathy Neurological: Cranial nerves II-XII grossly intact, Neuro grossly intact Psych/Mental Status: Alert and oriented to time, place, person, mood and affect Vital Signs Temp Pulse Resp BP Pulse Ox 36.8 C 88 20 H 98/56 L 94 01/21/18 04:25 01/21/18 06:43 01/21/18 06:41 01/21/18 04:52 01/21/18 06:41 Oxygen Flow Rate (L/min) 4 Oxygen Delivery Method Nasal Cannula Weight: 59.3 kg Body Mass Index (BMI) 20.2 Intake and Output for Last 24 Hours 01/19/18 01/20/18 01/21/18 23:59 23:59 23:59 Intake Total 924 / 924 1952.5 / 1952.5 623 / 623 Balance 924 / 924 1952.5 / 1952.5 623 / 623 Microbiology Past 72 Hours 01/19/18 02:15 Respiratory Panel (PCR) - Final Mucosa - Nasopharyngeal Laboratory Tests Past 24 Hrs 01/21/18 01/21/18 01/21/18 05:06 05:06 05:06 WBC 27.5 H RBC 4.01 L Hgb 10.9 L Hct 36.9 L MCV 92.0 MCH 27.2 MCHC 29.5 L RDW 20.5 H RDW Differential 65.5 H Plt Count 303 MPV 9.3 Immature Gran % (Auto) 0.400 Neut % (Auto) 90.5 H Lymph % (Auto) 4.9 L [place] % (Auto) 4.2 Eos % (Auto) 0.0 Baso % (Auto) 0.0 Absolute Neuts (auto) 24.9 H Absolute Lymphs (auto) 1.34 Total Counted Not Reportable Differential Comment SCAN Polychromasia 1+ Hypochromasia 1+ Anisocytosis 1+ Microcytosis 1+ Sodium 132 L Potassium 5.0 Chloride 93 L Carbon Dioxide 21.0 Anion Gap 18 H BUN 31 H Creatinine 2.93 H Estim Creat Clear Calc 22.70 Est GFR (MDRD) Af Amer 29 L Est GFR (MDRD) Non-Af 24 L BUN/Creatinine Ratio 10.6 Glucose 67 L Calcium 9.2 Random Vancomycin 17.5 H Medical Necessity - Tobacco Use Smoking Status: Former smoker Assessment/Plan All Active Problems (Last Reviewed 01/11/18 @ 03:00 by Reji Combs MD) HCAP (healthcare-associated pneumonia) (Ruled-out) COPD (chronic obstructive pulmonary disease) (Acute) Influenza B (Acute) Lung nodule (Resolved) Ulcer of foot (Resolved) RECOMMENDATIONS: 1. Continue scheduled bronchodilator, wean prednisone per previous plan 2. Increase activity as tolerated 3. Wean supplemental oxygen as tolerated. 4. Await hemodialysis decision per nephrology. 5. Continue Eliquis as ordered. 6. Okay to discontinue antibiotics from my perspective IMPRESSIONS: 1. Acute on chronic hypoxemic respiratory failure, likely secondary to acute on chronic systolic congestive heart failure Patient's chest x-ray appears grossly unchanged compared to previous. Patient did have a recent infection with influenza B and would be at risk for MRSA superinfection. Patient is not reporting a significant productive cough, which would be typical of staph pneumonia. Patient is back to baseline oxygenation standpoint. Patient did have pleural effusions on chest x-ray, but previous thoracentesis did show transudative findings. Patient does have significant lower extremity edema. Patient would likely benefit from fluid removal in a gradual fashion with hemodialysis. Patient can follow-up with Dr. Kunz as an outpatient per previously planned appointment. 2. Paroxysmal atrial fibrillation Continue Eliquis, amiodarone and beta-michael per outpatient regimen. 3. End-stage renal disease on hemodialysis/sick sinus syndrome/pulmonary hypertension/recent influenza B/secondary hyperparathyroidism/COPD Complicates care, management, recovery and prognosis. Continue hemodialysis per nephrology recommendations. This note was generated with [employer] software. It may contain incorrect words, spelling, and punctuation that were not noted in checking the note before signing. Code Visit Inpatient E&M: 56562 Subs Hosp L2
--- NOTE | 2018-01-21 12:42 | PCM.PN.REN ---
Subjective: c/o dyspnea today - Physical Exam General: Alert, Oriented x3, Cooperative HEENT: Atraumatic, PERRLA, EOMI, Normocephalic Neck: Supple, No JVD, Negative Carotid Bruits Lungs: Clear to auscultation, Normal air movement Cardiovascular: Regular rate, No murmurs Abdomen: Bowel Sounds Present, Soft, Non Tender Extremities: No edema, Capillary Refill Less than 3 Seconds Skin: No rashes, No breakdown Musculoskeletal: No Tenderness to Palpation of Joints or Extremities Neurological: Cranial nerves II-XII grossly intact Psych/Mental Status: Normal Affect, Appropriate Vital Signs Temp Pulse Resp BP Pulse Ox 96.0 F L 88 20 H 113/67 96 01/21/18 10:25 01/21/18 11:03 01/21/18 11:03 01/21/18 10:25 01/21/18 10:25 Oxygen Flow Rate (L/min) 4 Oxygen Delivery Method Nasal Cannula Weight: 59.3 kg Body Mass Index (BMI) 20.2 Intake and Output for Last 24 Hours 01/19/18 01/20/18 01/21/18 23:59 23:59 23:59 Intake Total 924 / 924 1952.5 / 1952.5 1242 / 1242 Balance 924 / 924 1952.5 / 1952.5 1242 / 1242 Microbiology Past 72 Hours 01/19/18 02:15 Respiratory Panel (PCR) - Final Mucosa - Nasopharyngeal Laboratory Tests Past 24 Hrs 01/21/18 01/21/18 01/21/18 05:06 05:06 05:06 WBC 27.5 H RBC 4.01 L Hgb 10.9 L Hct 36.9 L MCV 92.0 MCH 27.2 MCHC 29.5 L RDW 20.5 H RDW Differential 65.5 H Plt Count 303 MPV 9.3 Immature Gran % (Auto) 0.400 Neut % (Auto) 90.5 H Lymph % (Auto) 4.9 L [place] % (Auto) 4.2 Eos % (Auto) 0.0 Baso % (Auto) 0.0 Absolute Neuts (auto) 24.9 H Absolute Lymphs (auto) 1.34 Total Counted Not Reportable Differential Comment SCAN Polychromasia 1+ Hypochromasia 1+ Anisocytosis 1+ Microcytosis 1+ Sodium 132 L Potassium 5.0 Chloride 93 L Carbon Dioxide 21.0 Anion Gap 18 H BUN 31 H Creatinine 2.93 H Estim Creat Clear Calc 22.70 Est GFR (MDRD) Af Amer 29 L Est GFR (MDRD) Non-Af 24 L BUN/Creatinine Ratio 10.6 Glucose 67 L Calcium 9.2 Random Vancomycin 17.5 H Medical Necessity - Tobacco Use Smoking Status: Former smoker Assessment/Plan All Active Problems (Last Reviewed 01/11/18 @ 03:00 by Reji Combs MD) HCAP (healthcare-associated pneumonia) (Ruled-out) COPD (chronic obstructive pulmonary disease) (Acute) Influenza B (Acute) Lung nodule (Resolved) Ulcer of foot (Resolved) ESRD. HD TTS schedule CHF. edematous. BP was low yesterday, remains low today. impeding fluid removal. dc hydralazine, imdur. last CXR shows mild congestion. will continue fluid removal as tolerated with dialysis. AFIB. on metoprolol and amiodarone
--- NOTE | 2018-01-21 14:35 | PCM.PROGNOTE ---
Subjective: Pt less confused today, sitting up side of bed, does not seem to be hallucinating currently. No SOB, cough. Persistent LE edema. Discussed need to monitor salt and fluid intake closely. No CP. No NGUYEN/dizzy/LH. - Physical Exam General: Alert, Oriented x3, Cooperative HEENT: Atraumatic, PERRLA, EOMI, Normocephalic Neck: Supple, No JVD, Negative Carotid Bruits Lungs: Clear to auscultation, Normal air movement Cardiovascular: Regular rate, No murmurs Abdomen: Bowel Sounds Present, Soft, Non Tender Extremities: Edema - 3+ pitting edema BLE Skin: No rashes, No breakdown Musculoskeletal: No Tenderness to Palpation of Joints or Extremities Neurological: Cranial nerves II-XII grossly intact Psych/Mental Status: Normal Affect, Appropriate, Alert and oriented to time, place, person, mood and affect Vital Signs Temp Pulse Resp BP Pulse Ox 96.0 F L 90 20 H 113/67 96 01/21/18 10:25 01/21/18 14:24 01/21/18 11:03 01/21/18 10:25 01/21/18 10:25 Oxygen Flow Rate (L/min) 5 Oxygen Delivery Method Nasal Cannula Weight: 130 lb 11.746 oz Body Mass Index (BMI) 20.2 Intake and Output for Last 24 Hours 01/19/18 01/20/18 01/21/18 23:59 23:59 23:59 Intake Total 924 / 924 1952.5 / 1952.5 1242 / 1242 Balance 924 / 924 1952.5 / 1952.5 1242 / 1242 Microbiology Past 72 Hours 01/19/18 02:15 Respiratory Panel (PCR) - Final Mucosa - Nasopharyngeal Laboratory Tests Past 24 Hrs 01/21/18 01/21/18 01/21/18 05:06 05:06 05:06 WBC 27.5 H RBC 4.01 L Hgb 10.9 L Hct 36.9 L MCV 92.0 MCH 27.2 MCHC 29.5 L RDW 20.5 H RDW Differential 65.5 H Plt Count 303 MPV 9.3 Immature Gran % (Auto) 0.400 Neut % (Auto) 90.5 H Lymph % (Auto) 4.9 L Bradford % (Auto) 4.2 Eos % (Auto) 0.0 Baso % (Auto) 0.0 Absolute Neuts (auto) 24.9 H Absolute Lymphs (auto) 1.34 Total Counted Not Reportable Differential Comment SCAN Polychromasia 1+ Hypochromasia 1+ Anisocytosis 1+ Microcytosis 1+ Sodium 132 L Potassium 5.0 Chloride 93 L Carbon Dioxide 21.0 Anion Gap 18 H BUN 31 H Creatinine 2.93 H Estim Creat Clear Calc 22.70 Est GFR (MDRD) Af Amer 29 L Est GFR (MDRD) Non-Af 24 L BUN/Creatinine Ratio 10.6 Glucose 67 L Calcium 9.2 Random Vancomycin 17.5 H Medical Necessity - Tobacco Use Smoking Status: Former smoker Assessment/Plan All Active Problems (Last Reviewed 01/11/18 @ 03:00 by Reji Combs MD) HCAP (healthcare-associated pneumonia) (Ruled-out) COPD (chronic obstructive pulmonary disease) (Acute) Influenza B (Acute) Lung nodule (Resolved) Ulcer of foot (Resolved) 1. Acute hypoxic hypercapneic respiratory failure 2/2 acute diastolic CHF exacerbation - edematous, but acute phase resolved. Add KAROL wraps. Needs strict renal, low sodium, fluid restricted diet going forward. 2. COPD - stable. continue current therapy 3. Acute metabolic encephalopathy - hallucinations. Possibly uremic, hypercarbic etiologies. 4. ESRD - dialysis yesterday and today per Dr. Mejia. 5. Chronic leukocytosis - unspecified. Blood cultures negative. DC abx. 6. Afib - rate controlled. metoprolol / eliquis. 7. Anemia of chronic dz - stable. DVT ppx: eliquis DC planning: stable for dc. waiting for preauth to return to SNF. This patient was seen by Nehemiah Correia PA-C under the supervision of Doctor Victor.
--- NOTE | 2018-01-21 15:31 | CASEMGMT ---
SARAHY called Britney at [facility] and left her a voice mail asking her to call PCU should she get pre-cert for patient. SARAHY placed green sheet on chart with instructions. Plan: d/c back to [facility] under skilled level of care. Rose NAVA MSW
--- NOTE | 2018-01-21 16:21 | PCM.TXEXTCAR ---
- Diet 01/19/18 06:43 Diet: Renal - Carb-Controlled Type of Dietary Supplement:: add kefir bid Is pt able to select menu?: Yes Diet Comments: except meds - Routine Orders/Code Status Suppository Type: Dulcolax 10mg Suppository Frequency: Daily PRN O2 Frequency: Continuous Keep PO Greater than or Equal to (%): 89 Routine Lab Work: CBC - 3 days, BMP - 3 days Code Status: Full Code - Wound(s) Right Chest Wound Type: Abrasion Right Forearm Wound Type: Skin Tear Coccyx Wound Type: Pressure Injury - Therapies Physical Therapy: Eval and Treat Occupational Therapy: Eval and Treat - Problem/Diagnosis (1) CHF (congestive heart failure) Status: Acute Comment: EF 30% Current Visit: No (2) Respiratory failure with hypoxia Status: Chronic Current Visit: No (3) ESRD (end stage renal disease) Status: Chronic Current Visit: No (4) COPD (chronic obstructive pulmonary disease) Status: Chronic Current Visit: No (5) Atrial fibrillation Status: Chronic Current Visit: No (6) HTN (hypertension) Status: Chronic Current Visit: No (7) Pulmonary HTN Status: Chronic Current Visit: No (8) Anemia with chronic illness Status: Chronic Comment: ESRD Current Visit: No (9) History of nephrectomy Status: Chronic Current Visit: No (10) History of kidney cancer Status: Chronic Current Visit: No - Allergies/Procedures Done in Hospital Allergies/Adverse Reactions: Allergies onion Adverse Reaction (Severe, Verified 01/10/18 20:47) Unknown Procedures: Dialysis - Type of Care/Length of Stay Estimated LOS: Convalescent Care Less Than 30 days Type of Care Needed: Skilled Rehab Potential: Fair Prognosis: Fair - Additional Orders/Day of Discharge Day of Discharge: 01/21/18 - Dietary and Speech Recommendations Dietitian Recommendations/Changes: Suggest Dejan 1 packet BID for wound healing--order from pharmacy. Suggest diet change to Renal/80 gm protein. Will add 120 ml Nepro TID with meals. - Follow Up Care Primary Care Physician: Conner Lopez MD [Primary Care Provider] - Please follow up with your Primary Care Physician in: 2 weeks Please Follow Up With: Ratna Mejia MD - Resume normal dialysis When: As directed Please Follow Up With: Jaskaran Kunz DO When: 2 weeks
--- NOTE | 2018-01-21 16:29 | PCM.DC.SUM ---
<Nehemiah Correia - Last Filed: 01/21/18 16:41> Discharge Date and Diagnosis Date of Admission: 01/19/18 Date of Discharge: 01/21/18 - Primary Discharge Diagnosis Acute on chronic hypoxic hypercarbic respiratory failure secondary to acute systolic CHF exacerbation Acute metabolic encephalopathy COPD Pneumonia ruled out End-stage renal disease Recent admission for influenza B Pulmonary hypertension History of ischemic cardiomyopathy GERD Chronic debility Atrial fibrillation Anemia of chronic disease - Secondary Discharge Diagnosis Chronic Problems (Last Reviewed 01/11/18 @ 03:00 by Reji Combs MD) ESRD (end stage renal disease) (Chronic) COPD (chronic obstructive pulmonary disease) (Chronic) ICD extraction (Chronic) MSSA Bacteremia 08/2017 @[facility] Atrial fibrillation (Chronic) rn long term care current use of anticoagulant (Chronic) Elevated troponin (Chronic) not trending Mitral insufficiency (Chronic) Implantable cardioverter-defibrillator (ICD) in situ (Chronic) implanted in 12/07/2015 at [facility] Sick sinus syndrome (Chronic) S/P dual-chamber Pacemaker/ICD ESRD (end stage renal disease) (Chronic) on HD HTN (hypertension) (Chronic) Pulmonary HTN (Chronic) Anemia with chronic illness (Chronic) ESRD Non-compliance (Chronic) non-compliant with meds and with dialysis Non-compliance with renal dialysis (Chronic) Respiratory failure with hypoxia (Chronic) Bilateral pleural effusion (Chronic) Cardiomyopathy (Chronic) Coronary artery arteriosclerosis (Chronic) 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 Bibasilar pneumonia cannot be excluded. RAD/Chest 1 View (Portable) IMPRESSION: No significant change in cardiomegaly, bilateral pleural effusions, possible mild vascular congestion and bilateral subsegmental atelectasis versus pneumonia. Consults: Roberto/Sree - nephrology Geronimo - Pulm Operations: None Procedures: Dialysis Summary of Care Provided: Physical exam on day of discharge: See daily progress note. Hospital course: The patient is a 57 year old M with a PMhx as above who presented to the ER from SNF with progressively worsening of SOB x about 2 weeks. He had recently been admitted to the hospital with influenza B and COPD exacerbation with acute respiratory failure. He was found to be lethargic, and SOB. BNP was >5000, troponin was indeterminate. CXR showed pna vs CHF. He had leukocytosis however this is a chronic issue for him of unspecified etiology. He had no fever. His technical engineer was consulted, and pulmonary medicine was also consulted. He was started on vanc and zosyn for possible HCAP and dialysis for acute systoilc CHF. His legs were very edematous. Respiratory panel was negative for viral etiology. Blood cultures were negative. Pulmonary felt that this was not pna, but CHF. Abx were DC'd. He was already on a prednisone taper, and this was continued. He was given bronchodilators. Initially he was palced on NRB mask followed by temporarily bipap therapy. He was weaned to his baseline O2 which is 3-4 lpm NC. He did have some transient confusion and hallucinations, probably 2/2 acute metabolic encephalopathy, this resolved with dialysis. He continues to be edematous, but his respiratory status is stable. He will need to maintain a strict sodium and fluid restriction. He should have daily KAROL wraps to his BL LE for edema. He did have a recent echo this year in August which showed an EF of 50%, repeat was deferred. He was discharged back to SNF. He will need follow up with his PCP, nephrology, continued dialysis, and with Dr. Kunz - pulmonology. He was discharged to residential in stable condition This patient was seen by Nehemiah Correia PA-C under the supervision of Doctor Valente. [] Discharge Diet: Low fat/ Low Cholesterol, 2000 mg Sodium Diet, - - 1500 cc fluid daily Discharge Activity: Return to Normal Activity Home Medications: Medications to take at Discharge Calcium Acetate [Phoslo Gel Cap] 667 mg PO TIDCM 05/17/15 Apixaban [Eliquis] 2.5 mg PO BID 11/26/17 Hydroxyzine Pamoate 25 mg PO QHS 11/28/17 Amiodarone HCl [Cordarone] 200 mg PO DAILY tab 12/01/17 Metoprolol Tartrate [Lopressor (beta michael)] 50 mg PO TID 12/09/17 Renavite 1 tab PO DAILY 12/09/17 Loratadine 5 mg PO DAILY 01/10/18 Metoclopramide [Reglan] 5 mg PO BID 01/10/18 Nortriptyline HCl 50 mg PO QHS 01/10/18 Omeprazole 40 mg PO BID 01/10/18 Acetaminophen [Tylenol Tablet] 650 mg PO Q6H PRN PRN tablet 01/21/18 Albuterol Aerosols [Ventolin Aerosols] 2.5 mg INHALATION Q2H PRN PRN vial.neb. 01/21/18 Famotidine [Pepcid] 20 mg PO BID tablet 01/21/18 Ipratropium/Albuterol Sulfate [Duoneb] 3 ml INHALATION Q6H PRN PRN ampul.neb 01/21/18 Magnesium Hydroxide [Milk Of Magnesia] 30 ml PO DAILY PRN PRN udc 01/21/18 Prednisone See Taper PO DAILY #3 tablet 01/21/18 Senna/Docusate Sodium [Senokot-S] 2 tablet PO BID PRN PRN tablet 01/21/18 Following Prescrptions Were Given to Patient: Prednisone See Taper PO DAILY #3 tablet Primary Care Physician: Conner Lopez MD [Primary Care Provider] - Please follow up with your Primary Care Physician in: 2 weeks Please Follow Up With: Ratna Mejia MD - Resume normal dialysis When: As directed Please Follow Up With: Jaskaran Kunz DO When: 2 weeks Disposition: [facility] facility Minutes spent on discharge:: 35 Patient Condition:: Stable Medical Necessity - Tobacco Use Smoking Status: Former smoker Meaningful Use Info Meaningful Use Diagnoses (Choose all that apply): CHF - CHF KAROL/ARB ordered at discharge?: No Reason KAROL/ARB not ordered?: Worsening renal disease Documented LVEF (%): 50 <Oniel Victor - Last Filed: 01/21/18 16:57> Discharge Date and Diagnosis - Secondary Discharge Diagnosis Chronic Problems (Last Reviewed 01/11/18 @ 03:00 by Reji Combs MD) ESRD (end stage renal disease) (Chronic) COPD (chronic obstructive pulmonary disease) (Chronic) ICD extraction (Chronic) MSSA Bacteremia 08/2017 @[facility] Atrial fibrillation (Chronic) rn long term care current use of anticoagulant (Chronic) Elevated troponin (Chronic) not trending Mitral insufficiency (Chronic) Implantable cardioverter-defibrillator (ICD) in situ (Chronic) implanted in 12/07/2015 at [facility] Sick sinus syndrome (Chronic) S/P dual-chamber Pacemaker/ICD ESRD (end stage renal disease) (Chronic) on HD HTN (hypertension) (Chronic) Pulmonary HTN (Chronic) Anemia with chronic illness (Chronic) ESRD Non-compliance (Chronic) non-compliant with meds and with dialysis Non-compliance with renal dialysis (Chronic) Respiratory failure with hypoxia (Chronic) Bilateral pleural effusion (Chronic) Cardiomyopathy (Chronic) Coronary artery arteriosclerosis (Chronic) 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 I have independently interviewed and examined the patient and reviewed pertinent historical, laboratory, and other data. Please refer to Nehemiah Correia PA-C note for details of this patient's presentation, findings, and recommendations. I have reviewed Nehemiah Correia PA-C note and concur with documented findings. In brief, patient is an 57 -year-old M with significant for end-stage renal disease on hemodialysis, paroxysmal A. fib chronic pleural effusion who presented with progressive shortness of breath Assessment: 1. Metabolic encephalopathy 2. Acute hypoxic respiratory failure secondary to COPD patient is on baseline home O2 3. Acute on chronic systolic heart failure with ejection fraction of 36% 4. Cardiomyopathy status post AICD placement with subsequent removal as a result of MSSA bacteremia 5. End-stage renal disease on hemodialysis on Wednesdays and Fridays 6. Anemia secondary to anemia of chronic disorder 7. Hypertension 8. GERD 9. Paroxysmal atrial fibrillation on [facility] course: As elicited above by Nehemiah Correia Time spent on discharge 35 minutes Code Visit Inpatient E&M: [id number] Disch Hosp
== END 2018-01-21 17:47 | disposition skilled nursing facility (03) | DRG 291 ==
LOC: ED 23:56 → ICU 01-19 01:20 → PCU 01-19 10:32
PROVIDERS: Internal Medicine Nephrology; Physician Assistant; Admitting Provider Internal Medicine; Emergency Provider Emergency Medicine; Family Provider Family Medicine; PCP Family Medicine; Visit Provider Internal Medicine
DX: I13.2 Hypertensive heart and chronic kidney disease with heart failure and with stage 5 chronic kidney disease, or end stage renal disease (principal); N18.6 End stage renal disease; J96.22 Acute and chronic respiratory failure with hypercapnia; J96.21 Acute and chronic respiratory failure with hypoxia; I50.23 Acute on chronic systolic (congestive) heart failure; G93.41 Metabolic encephalopathy; Z99.2 Dependence on renal dialysis; I27.20 Pulmonary hypertension, unspecified; Z87.891 Personal history of nicotine dependence; I25.5 Ischemic cardiomyopathy; K21.9 Gastro-esophageal reflux disease without esophagitis; D63.1 Anemia in chronic kidney disease; Z90.5 Acquired absence of kidney; Z85.528 Personal history of other malignant neoplasm of kidney; Z99.81 Dependence on supplemental oxygen; J44.9 Chronic obstructive pulmonary disease, unspecified; R53.81 Other malaise; I25.10 Atherosclerotic heart disease of native coronary artery without angina pectoris; E21.5 Disorder of parathyroid gland, unspecified
CPT/HCPCS: 36415; 36600; 71045; 80048; 80053; 80202; 82803; 82962; 83605; 83880; 84100; 84484; 85025; 85027; 85610; 85730; 87040; 87633; 87641; 90937; 93005; 94002; 94003; 94640; 94668; 97110; 97163; 97166; 97530; 97802; 99285; J7030; J7040; J7050; A4216; G0257; J2405

== ENCOUNTER 2018-01-22 03:05 | Emergency (ER) | payer MEDICARE, SELFPAY ==
--- NOTE | 2018-01-22 03:18 | ED.RN ---
PATIENT CAME IN A CODE BLUE. PLEASE SEE CODE CHARTING FOR DOCUMENTATION
[2018-01-22 03:21] LABS: Bedside Glucose 80 mg/dL (70-110)
--- NOTE | 2018-01-22 03:56 | ED.VISSUMM ---
- ER Visit Summary Date of Service: 01/22/18 Chief Complaint: Cardiac arrest History of Present Illness: The patient is a 57 M who was found unresponsive and pulseless on the floor at the [facility] around 2:30 AM. CPR was started. EMS arrived and reports patient was in asystole. CPR was continued and patient was bagged with bag valve mask. I/O was started in the left tibia. Patient received 2 rounds of epinephrine with EMS. Physical Examination: Patient is unresponsive. He has no gag reflex and there is pooling of secretions in the posterior pharynx. Weak pulses present with CPR only. There is no sign of trauma. Test Results: [] Emergency Department Course and Treatment: Patient was intubated with a 7.5 ET tube. Good color change is noted and equal breath sounds are noted bilaterally. ACLS protocol was continued. Patient was given epinephrine and bicarb. On repeat pulse check he had a wide complex on organized rhythm with no pulses present. Additional epinephrine was given. Amiodarone 300 mg was given. Patient is known to be on dialysis and we were unsure of his last treatment. Amp of calcium was also given. On repeat pulse checks patient continues to remain pulseless with unorganized wide complex rhythm noted. Bedside ultrasound is performed and shows no cardiac wall activity. Patient is declared at 3:16 AM. Treatment Plan: [] Disposition: Impression: Cardiac arrest This note was generated with [employer] dictation software. It may contain incorrect words, spelling, and punctuation that were not noted in review of the chart prior to signing ED Disposition - Plan for ED Patient: Chief Complaint: CPR Referrals: Conner Lopez MD [Primary Care Provider] -
--- NOTE | 2018-01-22 03:59 | ED.DCSUM_ITS ---
- ER Visit Summary Date of Service: 01/22/18 Chief Complaint: Cardiac arrest History of Present Illness: The patient is a 57 M who was found unresponsive and pulseless on the floor at the [facility] around 2:30 AM. CPR was started. EMS arrived and reports patient was in asystole. CPR was continued and patient was bagged with bag valve mask. I/O was started in the left tibia. Patient received 2 rounds of epinephrine with EMS. Physical Examination: Patient is unresponsive. He has no gag reflex and there is pooling of secretions in the posterior pharynx. Weak pulses present with CPR only. There is no sign of trauma. Test Results: [] Emergency Department Course and Treatment: Patient was intubated with a 7.5 ET tube. Good color change is noted and equal breath sounds are noted bilaterally. ACLS protocol was continued. Patient was given epinephrine and bicarb. On repeat pulse check he had a wide complex on organized rhythm with no pulses present. Additional epinephrine was given. Amiodarone 300 mg was given. Patient is known to be on dialysis and we were unsure of his last treatment. Amp of calcium was also given. On repeat pulse checks patient continues to remain pulseless with unorganized wide complex rhythm noted. Bedside ultrasound is performed and shows no cardiac wall activity. Patient is declared at 3:16 AM. Treatment Plan: [] Disposition: Impression: Cardiac arrest This note was generated with [employer] dictation software. It may contain incorrect words, spelling, and punctuation that were not noted in review of the chart prior to signing ED Disposition - Plan for ED Patient: Chief Complaint: CPR Referrals: Conner Lopez MD [Primary Care Provider] -
--- NOTE | 2018-01-22 04:21 | ED.RN ---
normal saline and ice pack placed on patient, HOB raised at this time
--- NOTE | 2018-01-22 04:21 | ED.RN ---
contacted no long-term picked out at this time. Patient has history of kidney cancer with kidney removed due to cancer
--- NOTE | 2018-01-22 04:55 | ED.RN ---
patient to the [facility] at this time
== END 2018-01-22 04:56 ==
LOC: ED 03:09
PROVIDERS: Emergency Provider Emergency Medicine; Family Provider Family Medicine; PCP Family Medicine
DX: I46.9 Cardiac arrest, cause unspecified (principal); I13.2 Hypertensive heart and chronic kidney disease with heart failure and with stage 5 chronic kidney disease, or end stage renal disease; N18.6 End stage renal disease; I50.9 Heart failure, unspecified; I48.91 Unspecified atrial fibrillation; I27.20 Pulmonary hypertension, unspecified; J44.9 Chronic obstructive pulmonary disease, unspecified; Z99.2 Dependence on renal dialysis; Z90.5 Acquired absence of kidney; Z85.528 Personal history of other malignant neoplasm of kidney; Z87.891 Personal history of nicotine dependence; Z79.899 Other long term (current) drug therapy
CPT/HCPCS: 31500; 82962; 92950; 99291; J7030; A4216